=== PATIENT | female | born 1940 | race Caucasian/White ===

== ENCOUNTER 2016-11-23 07:59 | Observation (INO) | payer MEDICARE, OTHER ==
[~2016-11-23] VITALS: Ht 162.6 cm; Wt 65.8 kg
[~2016-11-23 07:59] MED LIST: ACDPT PO; ALPR.25T PO; ASPI-875 PO; CALC-80 PO; CHOL200025 PO; CLCX200C PO; CYCL10TA9 PO; EST45C VG; FLUT16SP22 NSEACH; FOLI0.4T2 PO; HCT25T PO; HYDR-3720 PO; LOSA50TA6 PO; LVT.05T PO; MAGN250T7 PO; MV,C1TAB21 PO; OMEG1CAP51 PO; [UNRECOGNIZED DRUG - OTHER] PO; [UNRECOGNIZED DRUG - REMARK] PO
[2016-11-23 08:30] LABS: BASOPHILS % (AUTO) 1 % (0-10); EOSINOPHILS # (AUTO) 0.2 10^3/uL (0.0-0.3); EOSINOPHILS % (AUTO) 2 % (0-10); LYMPHOCYTES # (AUTO) 3.9 X 10^3 (1.0-4.0); LYMPHOCYTES % (AUTO) 55 % (12-44); MEAN CORPUSCULAR HEMOGLOBIN 32 PG (25-34); MEAN CORPUSCULAR HGB CONC 34 G/DL (32-36); MEAN CORPUSCULAR VOLUME 94 FL (80-99); MEAN PLATELET VOLUME 11.6 FL (7.4-10.4); MONOCYTES # (AUTO) 0.5 X 10^3 (0.0-1.0); MONOCYTES % (AUTO) 7 % (0-12); NEUTROPHILS # (AUTO) 2.5 X 10^3 (1.8-7.8); NEUTROPHILS % (AUTO) 35 % (42-75); PLATELET COUNT 168 10^3/uL (130-400); RED BLOOD COUNT 3.87 10^6/uL (4.35-5.85)
[2016-11-23 08:54] LABS: BILIRUBIN,TOTAL 0.5 MG/DL (0.1-1.0); CALCIUM 9.5 MG/DL (8.5-10.1); CREATININE SERUM 1.16 MG/DL (0.60-1.30); POTASSIUM 4.3 MMOL/L (3.6-5.0); TOTAL PROTEIN 6.9 G/DL (6.4-8.2)
--- NOTE | 2016-11-23 09:08 | ED General ---
General Chief Complaint: Abdominal/GI Problems Stated Complaint: FALL, DIZZINESS, N/V Nursing Triage Note: Pt woke up this morning feeling nauseated with emesis. [place] dizzy. Pt fell 3 days ago and hit the back of her head. Pt did not seek treatment. Awake, alert, and active. Nursing Sepsis Screen: No Definite Risk Source of Information: Patient Exam Limitations: No Limitations History of Present Illness Time Seen by Provider: 09:03 Initial Comments The patient relates that 3 days ago she was in her kitchen and the attempting to take a prescription pill. She had the sensation that this became stuck and was trying to press upon her stomach and and drink water to relieve this she then fell to the floor. She does not remember the act. She apparently hit her head on the floor and was down for a period of time. She then got back up and thought herself to be okay so did not seek medical attention. This morning she awakened early and found herself to be terribly dizzy and having the spinning sensation when she turned her head. She is not previously had symptoms of vertigo. Timing/Duration: 1-3 Hours Associated Systoms: Nausea/Vomiting Allergies and Home Medications Allergies Coded Allergies: Erythromycin Base (Unverified Allergy, Unknown, 08/29/06) Milk Containing Products (Unverified Allergy, Unknown, 04/19/13) FROM UNCODED LIST Home Medications Acetaminophen/Diphenhydramine 1 Ea Tab, 1-2 TAB PO HS PRN, (Reported) NEEDED FOR PAIN/SLEEP Alprazolam 0.25 Mg Tablet, 0.25 MG PO DAILY, (Reported) Aspirin 81 Mg Tablet.dr, 81 MG PO DAILY, (Reported) Calcium Carbonate/Vitamin D3 1 Each Tablet, 1 TAB PO DAILY, (Reported) Celecoxib 200 Mg Capsule, 200 MG PO DAILY, (Reported) Cholecalciferol (Vitamin D3) 2,000 Unit Tablet, 2,000 UNIT PO DAILY, (Reported) Cyclobenzaprine Hcl 10 Mg Tablet, 1 EACH PO Q8HR PRN, #60 (Reported) Estrogens Conjugated 45 Gm Cr, 0.5 GM VG WEEKLY, (Reported) 1/2 APPLICATORFUL ONCE WEEKLY Fluticasone Propionate 16 Gm Naspr, 1 SPRAY NSEACH BID PRN, (Reported) NEEDED FOR ALLERGY SYMPTOMS Folic Acid 0.4 Mg Tablet, 400 MCG PO DAILY, (Reported) Hydrochlorothiazide 25 Mg Tablet, 25 MG PO DAILY, (Reported) Hydrocodone Bit/Acetaminophen 1 Each Tablet, 1-2 EACH PO Q4HR PRN, #60 (Reported ) Levothyroxine Sodium 50 Mcg Tablet, 50 MCG PO DAILY, (Reported) Losartan Potassium 50 Mg Tablet, 50 MG PO DAILY, (Reported) Magnesium Oxide 250 Mg Tablet, 250 MG PO DAILY, (Reported) Mv,Ca,Min/Iron Fum/Fa/Lyco/Lut 1 Each Tablet, 1 TAB PO DAILY, (Reported) [place]-3 Fatty Acids/Fish Oil 1 Each Capsule, 1,000 MG PO DAILY, (Reported) TAKES 1 (1000MG) CAPSULE EVERY MORNING AND TAKES 2 (1000MG) CAPSULES EVERY NIGHT [place]-3 Fatty Acids/Fish Oil 1 Each Capsule, 2,000 MG PO HS, (Reported) TAKES 1 (1000MG) CAPSULE EVERY MORNING AND TAKES 2 (1000MG) CAPSULES EVERY NIGHT [Dairy Digestive Supp] , 2 TAB PO TID PRN, (Reported) EQUATE DAIRY DIGESTIVE SUPPLEMENT TAKES NEEDED BEFORE EATING CHEESE [Sinus & Allergy] , 2 TAB PO BID PRN, (Reported) NEEDED FOR CONGESTION EQUATE SINUS AND ALLERGY Constitutional: see HPI EENTM: other (no loss of hearing but turning head triggers vertigo) Respiratory: no symptoms reported Cardiovascular: no symptoms reported Gastrointestinal: nausea, vomiting Genitourinary: no symptoms reported Musculoskeletal: no symptoms reported Skin: no symptoms reported Psychiatric/Neurological: No Symptoms Reported Hematologic/Lymphatic: No Symptoms Reported Immunological/Allergic: no symptoms reported Past Jirnlyb-Katqye-Xlqsto Hx Patient Social History Alcohol Use: Denies Use Recreational Drug Use: No Smoking Status: Never a Smoker Recent Foreign Travel: No Contact w/Someone Who Travel: No Recent Infectious Disease Expo: No Immunizations Up To Date Tetanus Booster (TDap): More than 5yrs PED Vaccines UTD: Yes Date of Pneumonia Vaccine: Mar 30, 2008 Surgeries HX Surgeries: Yes Respiratory Hx Respiratory Disorders: No Cardiovascular Hx Cardiac Disorders: Yes Neurological Hx Neurological Disorders: No Reproductive System Hx Reproductive Disorders: No Gastrointestinal Hx Gastrointestinal Disorders: Yes (IRRITABLE STOMACH) Musculoskeletal Hx Musculoskeletal Disorders: Yes Musculoskeletal Disorders: Degenerate Disk Disease, Chronic Back Pain Endocrine Hx Endocrine Disorders: Yes Endocrine Disorders: Hypothyroidsim HEENT HX ENT Disorders: No Cancer Hx Cancer: No Psychosocial Hx Psychiatric Problems: Yes Behavioral Health Disorders: Anxiety Integumentary HX Skin/Integumentary Disorder: No Blood Transfusions Hx Blood Disorders: No Adverse Reaction to a Blood Tr: No Physical Exam Vital Signs Vital Sign - Last 12Hours 11/23/16 08:25 Temp 98.2 Pulse 70 Resp 16 B/P (MAP) 149/66 Pulse Ox 98 O2 Delivery Room Air Capillary Refill : Less Than 3 Seconds General Appearance: Mild Distress Eyes: Bilateral Eye Normal Inspection HEENT: Normal ENT Inspection Neck: Full Range of Motion Respiratory: Chest Non Tender, Lungs Clear, Normal Breath Sounds, No Accessory Muscle Use, No Respiratory Distress Cardiovascular: Regular Rate, Rhythm, No Edema, No Gallop, No JVD, No Murmur, Normal Peripheral Pulses Gastrointestinal: Normal Bowel Sounds, No Organomegaly, No Pulsatile Mass, Non Tender, Soft Extremity: Normal Capillary Refill, Normal Inspection, Normal Range of Motion, Non Tender, No Calf Tenderness, No Pedal Edema Neurologic/Psychiatric: Alert, Oriented x3, No Motor/Sensory Deficits, Normal Mood/Affect Skin: Normal Color, Warm/Dry Lymphatic: No Adenopathy Progress/Results/Core Measures Results/Orders Lab Results Laboratory Tests Test 11/23/16 08:20 Range/Units White Blood Count 7.0 4.3-11.0 10^3/uL Red Blood Count 3.87 L 4.35-5.85 10^6/uL Hemoglobin 12.2 11.5-16.0 G/DL Hematocrit 36 35-52 % Mean Corpuscular Volume 94 80-99 FL Mean Corpuscular Hemoglobin 32 25-34 PG Mean Corpuscular Hemoglobin Concent 34 32-36 G/DL Red Cell Distribution Width 13.0 10.0-14.5 % Platelet Count 168 130-400 10^3/uL Mean Platelet Volume 11.6 H 7.4-10.4 FL Neutrophils (%) (Auto) 35 L 42-75 % Lymphocytes (%) (Auto) 55 H 12-44 % Monocytes (%) (Auto) 7 0-12 % Eosinophils (%) (Auto) 2 0-10 % Basophils (%) (Auto) 1 0-10 % Neutrophils # (Auto) 2.5 1.8-7.8 X 10^3 Lymphocytes # (Auto) 3.9 1.0-4.0 X 10^3 Monocytes # (Auto) 0.5 0.0-1.0 X 10^3 Eosinophils # (Auto) 0.2 0.0-0.3 10^3/uL Basophils # (Auto) 0.0 0.0-0.1 10^3/uL Sodium Level 143 135-145 MMOL/L Potassium Level 4.3 3.6-5.0 MMOL/L Chloride Level 107 98-107 MMOL/L Carbon Dioxide Level 24 21-32 MMOL/L Anion Gap 12 5-14 MMOL/L Blood Urea Nitrogen 23 H 7-18 MG/DL Creatinine 1.16 0.60-1.30 MG/DL Estimat Glomerular Filtration Rate 45 BUN/Creatinine Ratio 20 Glucose Level 108 H 70-105 MG/DL Calcium Level 9.5 8.5-10.1 MG/DL Total Bilirubin 0.5 0.1-1.0 MG/DL Aspartate Amino Transf (AST/SGOT) 32 5-34 U/L Alanine Aminotransferase (ALT/SGPT) 17 0-55 U/L Alkaline Phosphatase 48 40-136 U/L Total Protein 6.9 6.4-8.2 G/DL Albumin 4.0 3.2-4.5 G/DL My Orders Orders - RADHA BURNETT MD Cbc With Automated Diff (11/23/16 08:17) Comprehensive Metabolic Panel (11/23/16 08:17) Ua Culture If Indicated (11/23/16 08:17) Ct Head Wo (11/23/16 08:17) Meclizine Tablet (Antivert Tablet) (11/23/16 09:30) Vital Signs/I&O Vital Sign - Last 12Hours 11/23/16 08:25 Temp 98.2 Pulse 70 Resp 16 B/P (MAP) 149/66 Pulse Ox 98 O2 Delivery Room Air Blood Pressure Mean: 93 Departure Communication Progress Notes CT scan is negative for intracranial process. The patient lives alone Impression Impression: Primary Impression: vertigo Disposition: ADMITTED INPATIENT Condition: Stable/Unchanged Decision to Admit Reason: Admit from ER (General) Decision to Admit/Date: November 23, 2016 Time/Decision to Admit Time: 09:57 Departure-Patient Inst. Referrals: YADIEL ARAUJO DO (PCP/Family) Primary Care Physician RADHA BURNETT MD November 23, 2016 09:08
--- NOTE | 2016-11-23 09:25 | Diagnostic Imaging Report ---
PROCEDURE: CT head without contrast. TECHNIQUE: Multiple contiguous axial images were obtained through the brain without the use of intravenous contrast. INDICATION: Fall. Dizziness. No priors. There is no intracranial hemorrhage, hydrocephalus, edema, mass, or mass effect. There is prominence of the bifrontal extra-axial CSF spaces. There is no hydrocephalus. The basilar cisterns patent and sulci non effaced. There is an old remote-appearing lacunar infarct in the right basal ganglia with mild chronic-appearing periventricular white matter small-vessel disease. Orbits, sinuses, and calvarium appeared nonacute. IMPRESSION: Prominent extra-axial CSF spaces likely from cortical atrophy. No hydrocephalus. Remote lacunar infarct and chronic white matter disease. No hemorrhage or acute-appearing abnormality. I agree with the preliminary. Dictated by: Dictated on workstation # [id number]
[2016-11-23] MEDS ORDERED: MECLIZINE 25 MG (ANTIVERT) TAB PO ONE (09:30)
[2016-11-23 10:02] LABS: BILIRUBIN,URINE NEGATIVE (NEGATIVE); KETONES,URINE NEGATIVE (NEGATIVE); LEUKOCYTE ESTERASE ,URINE 1+ (NEGATIVE); NITRITE,URINE NEGATIVE (NEGATIVE); PH,URINE 6 (5-9); PROTEIN,URINE 2+ (NEGATIVE); UROBILINOGEN,URINE NORMAL (NORMAL)
[2016-11-23 10:19] LABS: SQUAMOUS EPITHELIAL CELL,UR 0-2 /HPF; WBC,URINE RARE /HPF
[2016-11-23] MEDS ORDERED: CATHETER FLUSH 10 ML SYR IV PRN (11:00)
[2016-11-23] MEDS: NS IV 1000 ML 1,000 ML IV SCH ×2 (11:07→20:10)
[2016-11-23] MEDS ORDERED: DEXAMETHASONE 4 MG/ML SDV (DECADRON) IV NR (11:45)
--- NOTE | 2016-11-23 11:57 | History & Physical ---
History of Present Illness History of Present Illness Reason for visit/HPI 76-year-old female with a history of spinal stenosis and chronic back pain admitted for observation in regards to vertigo. Patient reports 3 days ago she was standing in her kitchen attempting to take a pill which she thinks was gabapentin and it did not go down completely so she took a couple big drinks of water. After the second drink of water she felt like she needed to hit herself in the chest to get it to go down; became little anxious and that is all she remembers. Shortly thereafter she awoken and wondered where her cup of water was; she was fully alert and knew exactly what was going on and what happened. She did hit her head and noticed a bump on right side of posterior head that subsequently went away. Patient did not seek medical attention as she felt fine. Denies any lasting headache or residual effect from the fall. Patient's sister was around her the following day and reports that Michelle was acting normal. This a.m. the patient woke up with nausea and actually vomited a little bilious fluid. She noticed sitting up or turning her head different directions it would create severe nausea and the feeling of needing to vomit. She has not taken any medications and proceeded to the ER. Patient has not started any new medications. Patient denies any fever or any other signs of illness. Patient lives with her but he is confined to a motorized chair. A CT of her head was performed in the ER that was benign for any acute changes. Given patient lives at home and her is confined to a motorized chair decision was made to admit her for observation. More so patient reports she does not feel stable enough to walk given the dizziness and would not be able to perform as she normally does at home with taking care of her . ER course patient was given IV fluids and meclizine. Patient reports meclizine did not help much. CBC and CMP also collected both which were unremarkable for any electrolyte derangement or etiology for her dizziness. Date of Admission November 23, 2016 at 9:57 am I consulted on this patient on 11/23/16 11:51 Attending Physician Ambika Hernandez DO Admitting Physician Rich Dempsey MD Consult Allergies and Home Medications Allergies Coded Allergies: Milk Containing Products (Unverified Allergy, Unknown, 04/19/13) FROM UNCODED LIST erythromycin base (Unverified Allergy, Unknown, 08/29/06) Home Medications Acetaminophen/Diphenhydramine 1 Ea Tab, 1-2 TAB PO HS PRN, (Reported) NEEDED FOR PAIN/SLEEP Alprazolam 0.25 Mg Tablet, 0.25 MG PO DAILY, (Reported) Aspirin 81 Mg Tablet.dr, 81 MG PO DAILY, (Reported) Calcium Carbonate/Vitamin D3 1 Each Tablet, 1 TAB PO DAILY, (Reported) Celecoxib 200 Mg Capsule, 200 MG PO DAILY, (Reported) Cholecalciferol (Vitamin D3) 2,000 Unit Tablet, 2,000 UNIT PO DAILY, (Reported) Cyclobenzaprine Hcl 10 Mg Tablet, 1 EACH PO Q8HR PRN, #60 (Reported) Estrogens Conjugated 45 Gm Cr, 0.5 GM VG WEEKLY, (Reported) 1/2 APPLICATORFUL ONCE WEEKLY Fluticasone Propionate 16 Gm Naspr, 1 SPRAY NSEACH BID PRN, (Reported) NEEDED FOR ALLERGY SYMPTOMS Folic Acid 0.4 Mg Tablet, 400 MCG PO DAILY, (Reported) Hydrochlorothiazide 25 Mg Tablet, 25 MG PO DAILY, (Reported) Hydrocodone Bit/Acetaminophen 1 Each Tablet, 1-2 EACH PO Q4HR PRN, #60 (Reported ) Levothyroxine Sodium 50 Mcg Tablet, 50 MCG PO DAILY, (Reported) Losartan Potassium 50 Mg Tablet, 50 MG PO DAILY, (Reported) Magnesium Oxide 250 Mg Tablet, 250 MG PO DAILY, (Reported) Mv,Ca,Min/Iron Fum/Fa/Lyco/Lut 1 Each Tablet, 1 TAB PO DAILY, (Reported) [place]-3 Fatty Acids/Fish Oil 1 Each Capsule, 1,000 MG PO DAILY, (Reported) TAKES 1 (1000MG) CAPSULE EVERY MORNING AND TAKES 2 (1000MG) CAPSULES EVERY NIGHT [place]-3 Fatty Acids/Fish Oil 1 Each Capsule, 2,000 MG PO HS, (Reported) TAKES 1 (1000MG) CAPSULE EVERY MORNING AND TAKES 2 (1000MG) CAPSULES EVERY NIGHT [Dairy Digestive Supp] , 2 TAB PO TID PRN, (Reported) EQUATE DAIRY DIGESTIVE SUPPLEMENT TAKES NEEDED BEFORE EATING CHEESE [Sinus & Allergy] , 2 TAB PO BID PRN, (Reported) NEEDED FOR CONGESTION EQUATE SINUS AND ALLERGY Past Iyafnxq-Dayzcz-Oezikv Hx Patient Social History Alcohol Use: Denies Use Recreational Drug Use: No Smoking Status: Never a Smoker Recent Foreign Travel: No Contact w/other who traveled: No Recent Infectious Disease Expo: No Immunizations Up To Date Tetanus Booster (TDap): More than 5yrs Date of Pneumonia Vaccine: Mar 30, 2008 Surgeries HX Surgeries: Yes Respiratory Hx Respiratory Disorders: No Cardiovascular Hx Cardiovascular Disorders: Yes Neurological Hx Neurological Disorders: No Reproductive System Hx Reproductive Disorders: No Gastrointestinal Hx Gastrointestinal Disorders: Yes (IRRITABLE STOMACH) Musculoskeletal Hx Musculoskeletal Disorders: Yes Musculoskeletal Disorders: Degenerate Disk Disease, Chronic Back Pain Endocrine Hx Endocrine Disorders: Yes Endocrine Disorders: Hypothyroidsim HEENT HX ENT Disorders: No Cancer Hx Cancer: No Psychosocial Hx Psychiatric Problems: Yes Behavioral Health Disorders: Anxiety Integumentary HX Skin/Integumentary Disorder: No Blood Transfusions Hx Blood Disorders: No Adverse Reaction to a Blood Tr: No Review of Systems Review of Systems General: No Chills, No Night Sweats, No Fatigue, No Malaise HEENT: No Head Aches, Visual Changes (vertigo) Pulmonary: No Dyspnea, No Cough Cardiovascular: No: Chest Pain, Orthopnea Gastrointestinal: Nausea, Vomiting, No: Abdominal Pain Genitourinary: No Dysuria, No Frequency Musculoskeletal: back pain, No: neck pain, shoulder pain Neurological: No: Confusion, Numbness, Weakness Physical Exam Vital Signs Vital Sign - Last 12Hours 11/23/16 08:25 Temp 98.2 Pulse 70 Resp 16 B/P (MAP) 149/66 Pulse Ox 98 O2 Delivery Room Air Capillary Refill : Less Than 3 Seconds General Appearance: WD/WN, Anxious, Mild Distress Eyes: Bilateral Eye EOMI, Bilateral Eye PERRL HEENT: PERRL/EOMI Neck: Full Range of Motion, Non Tender, Supple Respiratory: Chest Non Tender, Lungs Clear, Normal Breath Sounds, No Accessory Muscle Use, No Respiratory Distress Cardiovascular: Regular Rate, Rhythm, Systolic Murmur (grade ii/vi), Other (2+ dorsalis pedis pulse) Gastrointestinal: No Pulsatile Mass, Non Tender, Soft Rectal: Deferred Back: No CVA Tenderness Extremity: Normal Capillary Refill, Normal Inspection, Normal Range of Motion, Non Tender, No Calf Tenderness Neurologic/Psychiatric: Alert, Oriented x3, Normal Mood/Affect, Sensory Deficit (decreased in left lower extremity) Skin: Normal Color, Warm/Dry Assessment/Plan Assessment/Plan Assessment/Plan 76 yo F *vertigo- likely BPPV- unable to do the yesica-hallpike diagnostic maneuver effectively due to pt being dizzy sitting up and not wanting to turn her head -continue meclizine, giving 1x dose of 4mg dexamethasone IV to see if it helps- if BPPV medication won't help much. --may also be labrinthitis from a viral etiology -will monitor overnight and plan to try yesica-hallpike again- in hopes of helping her vertigo with epply maneuver *chronic back pain with spinal stenosis- may take her home medications gabapentin, tramadol *constipation due to opioid use- may add colace, miralax hypothyroidism- will review home med anxiety- alprazolam 0.25mg from home. DVT ppx: scds Dispo: monitor overnight- reassess in AM as above. Problems: RICH DEMPSEY MD November 23, 2016 11:57 am
[2016-11-23] MEDS: MECLIZINE 25 MG (ANTIVERT) TAB PO SCH ×3 (13:22→20:08)
[2016-11-23] MEDS ORDERED: AMLO5TAB2 PO (15:33)
[2016-11-23] MEDS ORDERED: TRAM50TA2 PO (15:33)
[2016-11-23] MEDS ORDERED: NFBIOT1000 PO (15:33)
[2016-11-23] MEDS ORDERED: GABA600T2 PO (15:33)
[2016-11-23] MEDS ORDERED: PATIENT MAY USE OWN MEDS, ALL MC SCH (15:45)
[2016-11-23] MEDS ORDERED: GABAPENTIN 600 MG (NEURONTIN) TAB PO SCH (15:45)
[2016-11-23 15:59] VITALS: BP 147/70
[2016-11-23] MEDS: GABAPENTIN 600 MG (NEURONTIN) TAB PO SCH ×2 (16:48→23:05)
[2016-11-23] MEDS ORDERED: ONDANSETRON 4 MG (ZOFRAN) ORAL DISSOLVE TAB PO PRN (19:45)
[2016-11-23 19:46] VITALS: BP 132/71
[2016-11-24] VITALS: BP 127/69
[2016-11-24] MEDS: MECLIZINE 25 MG (ANTIVERT) TAB PO SCH ×3 (00:59→09:35)
[2016-11-24 04:06] VITALS: BP 131/64
[2016-11-24] MEDS: GABAPENTIN 600 MG (NEURONTIN) TAB PO SCH ×2 (04:43→09:36)
[2016-11-24] MEDS: NS IV 1000 ML 1,000 ML IV SCH (06:12)
[2016-11-24 08:00] VITALS: BP 146/65
[2016-11-24] MEDS ORDERED: ASPIRIN E.C. 81 MG (ECOTRIN) TAB PO SCH (09:00)
[2016-11-24] MEDS ORDERED: ALPRAZolam 0.25 MG (XANAX) TAB PO SCH (09:00)
--- NOTE | 2016-11-24 09:36 | Discharge Summary ---
Diagnosis/Chief Complaint Date of Admission November 23, 2016 at 09:57 Date of Discharge November 24, 2016 Discharge Date: November 24, 2016 Admission Diagnosis Admission Diagnosis *vertigo- *chronic back pain with spinal stenosis- *constipation due to opioid use hypothyroidism- anxiety- Discharge Diagnosis *vertigo- resolved *chronic back pain with spinal stenosis- *constipation due to opioid use hypothyroidism- anxiety- Reason Hospital Visit 76-year-old female with a history of spinal stenosis and chronic back pain admitted for observation in regards to vertigo. Patient reports 3 days ago she was standing in her kitchen attempting to take a pill which she thinks was gabapentin and it did not go down completely so she took a couple big drinks of water. After the second drink of water she felt like she needed to hit herself in the chest to get it to go down; became little anxious and that is all she remembers. Shortly thereafter she awoken and wondered where her cup of water was; she was fully alert and knew exactly what was going on and what happened. She did hit her head and noticed a bump on right side of posterior head that subsequently went away. Patient did not seek medical attention as she felt fine. Denies any lasting headache or residual effect from the fall. Patient's sister was around her the following day and reports that Michelle was acting normal. This a.m. the patient woke up with nausea and actually vomited a little bilious fluid. She noticed sitting up or turning her head different directions it would create severe nausea and the feeling of needing to vomit. She has not taken any medications and proceeded to the ER. Patient has not started any new medications. Patient denies any fever or any other signs of illness. Patient lives with her but he is confined to a motorized chair. A CT of her head was performed in the ER that was benign for any acute changes. Given patient lives at home and her is confined to a motorized chair decision was made to admit her for observation. More so patient reports she does not feel stable enough to walk given the dizziness and would not be able to perform as she normally does at home with taking care of her . ER course patient was given IV fluids and meclizine. Patient reports meclizine did not help much. CBC and CMP also collected both which were unremarkable for any electrolyte derangement or etiology for her dizziness. Discharge Summary Hospital Course Hospital Course 76-year-old female admitted for vertigo specifically room spinning sensation onset of same day as admission. After admission attempt was made to do Jaxon- Hallpike maneuver patient was not very tolerant of this and results were equivocal. A trial dose of dexamethasone 4 mg IV was given as well as patient was continued on meclizine. Following morning patient reported marked improvement in her vertigo and felt ready to go home. patient is deemed stable for discharge on 11/24/16. Patient will have meclizine to take when necessary for any residual vertigo. Patient will also continue dexamethasone 4 mg by mouth for 2 days. Suspect it is BPPV versus labyrinthitis. Both of which usually resolve on their own. She will follow-up with Dr. Hernandez in 1 week. Labs Laboratory Tests 11/23/16 08:20: Red Blood Count 3.87L, Mean Platelet Volume 11.6H, Neutrophils (%) (Auto) 35L, Lymphocytes (%) (Auto) 55H, Blood Urea Nitrogen 23H, Glucose Level 108H 11/23/16 09:30: Urine Specific [place] 1.010L, Urine Protein 2+H, Urine Leukocyte Esterase 1+H Procedures None. Discharge Physical Examination Allergies: Coded Allergies: Milk Containing Products (Unverified Allergy, Unknown, 04/19/13) FROM UNCODED LIST erythromycin base (Unverified Allergy, Unknown, 08/29/06) Vitals & I&Os Vital Signs Date Time Temp Pulse Resp B/P (MAP) Pulse Ox O2 Delivery O2 Flow Rate FiO2 11/24/16 11:25 62 20 146/65 98 11/24/16 08:00 97.3 11/23/16 08:25 Room Air General Appearance: Alert, Oriented X3, Cooperative HEENT: Atraumatic, PERRLA (no nystagmus) Respiratory: Clear to Auscultation Cardiovascular: Regular Rate Abdominal: Normal Bowel Sounds, Soft Extremities: No Clubbing, No Cyanosis Skin: No Rashes Neuro: Normal Speech, Strength at 5/5 X4 Ext Psych/Mental Status: Mental Status NL Discharge Home Medications Reviewed and agree with Discharge Medication list on patient's Discharge Instruction sheet Condition at Discharge stable Instructions to Patient/Family Please see electronic discharge instructions given to patient. Clinical Quality Measures DVT/VTE Risk/Contraindication: Risk Factor Score Per Nursin RFS Level Per Nursing on Admit: 2=Moderate DANIEL CHESTER MD November 24, 2016 9:36 am
[2016-11-24] MEDS ORDERED: DEXA4TAB PO (09:43)
[2016-11-24] MEDS ORDERED: MECL-106 PO (09:43)
--- NOTE | 2016-11-24 09:45 | Discharge Inst-Simple/Standard ---
Discharge Inst-Standard Discharge Medications New, Converted or Re-Newed RX: Transmitted to Pharmacy Patient Instructions/Follow Up Plan of Care/Instructions/FU: patient will have meclizine for her vertigo. also sending in dexamethasone which seemed to help the day she was inpatient Follow up with Dr. Hernandez in 1 week Stay hydrated with water. Activity as Tolerated: Yes Discharge Diet: Regular Diet DANIEL CHESTER MD November 24, 2016 09:45
[2016-11-24 11:25] VITALS: BP 146/65
== END 2016-11-24 09:44 | disposition home or self-care (01) ==
LOC: EDUNIT# 07:59 → ER 08:01 → UNDOADMOB 09:57 → 4TH 09:57 → UNDODISOB 11-24 11:25
PROVIDERS: ADMIT Family Medicine; ATTEND Family Medicine
DX: R42 Dizziness and giddiness (principal); E03.9 Hypothyroidism, unspecified; F41.9 Anxiety disorder, unspecified; K59.03 Drug induced constipation; T40.2X5A Adverse effect of other opioids, initial encounter; M54.9 Dorsalgia, unspecified; M48.00 Spinal stenosis, site unspecified
CPT/HCPCS: 36415; 70450; 80053; 81000; 85025; G0378

== ENCOUNTER → 2017-01-14 | Outpatient (CLI) | payer MEDICARE, OTHER ==
[~2017-01-14] MED LIST changes: +AMLO5TAB2 PO; +DEXA4TAB PO; +GABA600T2 PO; +MECL-106 PO; +NFBIOT1000 PO; +TRAM50TA2 PO
--- NOTE | 2017-01-14 13:39 | Diagnostic Imaging Report ---
CLINICAL INDICATION: Patient with memory loss. Comparison: Carotid duplex ultrasound exam dated 09/05/2014. Exam: Real-time carotid Doppler duplex imaging is performed bilaterally. Peak systolic velocity, ICA/CCA peak systolic ratio, spectral analysis, and vascular morphology are studied. Findings: ARTERY VELOCITY Right Left CCA 0.52 m/s 0.78 m/s ICA 0.64 m/s 0.86 m/s ECA 0.59 m/s 0.66 m/s ICA/CCA 1.23 1.09 VERT.ART Antegrade Antegrade There is minimal bilateral carotid artery atherosclerotic disease which demonstrates less than 50% stenosis on grayscale imaging. Impression: Minimal bilateral carotid artery atherosclerotic disease with no grayscale or Doppler evidence of significant vascular stenosis. Dictated by: Dictated on workstation # [id number]
--- NOTE | 2017-01-15 19:39 | Diagnostic Imaging Report ---
Bilateral screening mammogram 2D views with tomosynthesis. The current study was also evaluated with a Computer Aided Detection (CAD) system. INDICATION: Screening. No current complaints stated on the questionnaire. COMPARISON: 10/19/15. FINDINGS: The breasts are composed of scattered fibroglandular densities. There are scattered benign-appearing calcifications. Allowing for technique and positional differences, no suspicious change is seen. IMPRESSION: No significant change. ACR BI-RADS Category 2: Benign findings. Result letter will be mailed to the patient. Note: At least 10% of breast cancer is not imaged by mammography. Dictated by: Dictated on workstation # [id number]
== END ==
LOC: RAD 12:52
PROVIDERS: ATTEND Family Medicine
DX: I65.23 Occlusion and stenosis of bilateral carotid arteries (principal); Z12.31 Encounter for screening mammogram for malignant neoplasm of breast
CPT/HCPCS: 77067; 93880

== ENCOUNTER → 2017-04-22 | Outpatient (CLI) | payer MEDICARE, OTHER ==
--- NOTE | 2017-04-22 10:45 | Diagnostic Imaging Report ---
PROCEDURE: MRI lumbar spine. TECHNIQUE: Multiplanar, multisequence MRI of the lumbar spine was performed without contrast. INDICATION: Low back pain. COMPARISON: 01/03/2016. FINDINGS: There is straightening of the lumbar lordotic curvature. The alignment of the posterior spinal line however is satisfactory. There is susceptibility artifacts from bilateral transpedicular fusion hardware involving L3 and L4 levels. There is also disc cage identified. No obvious MRI evidence of vertebral body bone fusion at this level. There is significant disc height loss at L4/5 and mild disc height loss at L5/S1. Disc desiccation at all levels seen. There is reactive marrow changes around endplates of L4/5 and L5/S1. No suspicious marrow signal abnormality seen. The cauda equina and conus medullaris appear grossly unremarkable. T12/L1: No disc herniation, no facet hypertrophy. No foraminal stenosis. L1/2: There is a mild disc bulge and there is mild facet hypertrophy. No central canal, lateral recess or foraminal stenosis. L2/L3: There is a diffuse disc bulge and posterior ligamentous hypertrophy. There is mild to moderate central canal stenosis reducing the AP dimension of the canal to 8.8 mm and bilateral mild lateral recess stenosis worse on the right side is seen. No foraminal stenosis. L3/4: There is postoperative fusion changes seen with no evidence of remaining disc material posteriorly or fibrotic changes of significance. No central canal or lateral recess stenosis. The foramina demonstrate no stenosis on the left and probable mild stenosis on the right side although assessment is difficult due to the adjacent beam hardening artifacts. L4/5: There is a diffuse disc bulge and mild facet hypertrophy. No central canal or lateral recess stenosis. There is foraminal narrowing of moderate degree bilaterally suggested. L5/S1: There is a diffuse disc bulge asymmetric to the left side and moderate to severe facet arthropathy. There is no central canal stenosis. There is moderate stenosis of the left lateral recess. No stenosis of the right lateral recess. The foramina demonstrate severe stenosis on the left side encroaching upon the exiting left L5 spinal nerve. There is only mild foramina stenosis of the right. On the left side, extraforaminal disc herniation component is also abutting the exiting left L5 spinal nerve. The soft tissues demonstrates fullness in the lateral aspect of the left kidney. IMPRESSION: 1. There is severe foraminal stenosis on the left side at L5/S1 level encroaching upon the exiting left L5 spinal nerve. Also, the disc herniation in an extraforaminal location also abuts this nerve after exiting from the foramen. 2. Indeterminate fullness in the lateral aspect of the left kidney is seen. Further evaluation with renal ultrasound is recommended to rule out a left renal mass. The incidental findings of the left the renal parenchymal fullness and ultrasound evaluation recommendation is called to Dr. Porter Casas by Dr. Aguilar at time 11 am. Dictated by: Dictated on workstation # [id number]
== END ==
LOC: RAD 09:16
PROVIDERS: ATTEND Pain Medicine Interventional Pain Medicine
DX: M48.061 Spinal stenosis, lumbar region without neurogenic claudication (principal); M51.16 Intervertebral disc disorders with radiculopathy, lumbar region; N28.89 Other specified disorders of kidney and ureter
CPT/HCPCS: 72148

== ENCOUNTER → 2017-10-16 | Outpatient (CLI) | payer MEDICARE, OTHER ==
[~2017-10-16] VITALS: Ht 162.6 cm; Wt 65.8 kg
[~2017-10-16] MED LIST changes: +methylPREDNISolone 80 MG/ML (DEPO MEDROL) VIAL ONE
[2017-10-16 15:09] VITALS: BP 136/7
[2017-10-16 15:29] VITALS: BP 169/80
--- NOTE | 2017-10-16 23:54 | OPERATIVE REPORT ---
DATE OF SERVICE: 10/16/2017 DIAGNOSIS: Lumbar radiculopathy. PROCEDURE: Fluoroscopic guided interlaminar epidural steroid injection. PROCEDURE IN DETAIL: After obtaining informed consent from the patient, the patient's chart was reviewed. The patient was then brought to the procedure room and placed in the prone position. A timeout was performed. The back was prepped with antiseptic solution and under fluoro guidance, the patient's lumbar spine was identified at the level of L4-L5. The L4-L5 vertebra was identified with fluoro guidance and approximately 2 mL of 1.5% lidocaine solution was used to anesthetize the skin directly down to the pedicle of the L4-L5 and under fluoroscopic guidance, the tract was anesthetized up to the interlaminar space and the ligamentum flavum. This needle was withdrawn. Then, a 20-gauge 3.5 inch Tuohy needle was then directed following the same tract that was anesthetized with the spinal needle. Using loss of resistance, the epidural space was identified and then the syringe was switched for contrast solution which was injected, approximately 1 mL. After secondary confirmation of epidural access, another syringe was placed and 80 mg of Depo-Medrol was injected. The Tuohy needle was then flushed out with approximately 2 mL of the normal saline used from the loss of resistance syringe. Band-Aids were applied to all the procedure sites. The patient tolerated the procedure well and was taken to the recovery room in stable condition. COMPLICATIONS: None. Job ID: [id number] DocumentID: [id number] Dictated Date: 10/16/2017 15:28:58 Shoemaking Finisher Date: 10/16/2017 23:53:05 Dictated By: ROGER YEN DO
== END ==
LOC: CARD 14:00
PROVIDERS: ATTEND Pain Medicine Interventional Pain Medicine
DX: M54.16 Radiculopathy, lumbar region (principal); Z88.0 Allergy status to penicillin; Z79.899 Other long term (current) drug therapy
CPT/HCPCS: 62323

== ENCOUNTER → 2018-01-07 | Outpatient (CLI) | payer MEDICARE, OTHER ==
[~2018-01-07] MED LIST changes: -methylPREDNISolone 80 MG/ML (DEPO MEDROL) VIAL ONE
--- NOTE | 2018-01-07 14:52 | Diagnostic Imaging Report ---
INDICATION: Dyspnea. TECHNIQUE: Two view chest 2:44 PM CORRELATION STUDY: None FINDINGS: The heart size, mediastinal configuration and pulmonary vasculature are within normal limits. The lungs are hyperlucent and somewhat hyperinflated. However, lung mandujano are clear with no consolidating infiltrate. There is no significant pleural effusion or pneumothorax. Mild rightward curvature of the lumbar spine. IMPRESSION: 1. No radiographic evidence for acute abnormality of the chest. Dictated by: Dictated on workstation # [id number]
== END ==
LOC: RAD 14:01
PROVIDERS: ATTEND Family Medicine
DX: R06.00 Dyspnea, unspecified (principal)
CPT/HCPCS: 71046

== ENCOUNTER 2018-01-08 12:19 | Outpatient (CLI) | payer MEDICARE, OTHER ==
[~2018-01-08] VITALS: Ht 165.1 cm; Wt 63.5 kg
[2018-01-08 12:29] VITALS: BP 169/73
[2018-01-08] MEDS ORDERED: methylPREDNISolone 80 MG/ML (DEPO MEDROL) VIAL ONE (12:36)
[2018-01-08 13:12] VITALS: BP 177/85
--- NOTE | 2018-01-08 20:57 | OPERATIVE REPORT ---
DATE OF SERVICE: 01/08/2018 DIAGNOSIS: Lumbar radiculopathy. PROCEDURE: Fluoroscopic guided interlaminar epidural steroid injection. PROCEDURE IN DETAIL: After obtaining informed consent from the patient, the patient's chart was reviewed. The patient was then brought to the procedure room and placed in the prone position. A timeout was performed. The back was prepped with antiseptic solution and under fluoro guidance, the patient's lumbar spine was identified at the level of L4-L5. The L4-L5 vertebra was identified with fluoro guidance and approximately 2 mL of 1.5% lidocaine solution was used to anesthetize the skin directly down to the pedicle of the L4-L5 and under fluoroscopic guidance, the tract was anesthetized up to the interlaminar space and the ligamentum flavum. This needle was withdrawn. Then, a 20-gauge 3.5 inch Tuohy needle was then directed following the same tract that was anesthetized with the spinal needle. Using loss of resistance, the epidural space was identified and then the syringe was switched for contrast solution which was injected, approximately 1 mL. After secondary confirmation of epidural access, another syringe was placed and 80 mg of Depo-Medrol was injected. The Tuohy needle was then flushed out with approximately 2 mL of the normal saline used from the loss of resistance syringe. Band-Aids were applied to all the procedure sites. The patient tolerated the procedure well and was taken to the recovery room in stable condition. COMPLICATIONS: None. Job ID: [id number] DocumentID: [id number] Dictated Date: 01/08/2018 13:12:43 Director Transition Date: 01/08/2018 20:56:58 Dictated By: ROGER YEN DO
== END 2018-01-08 14:30 ==
LOC: CARD 12:19
PROVIDERS: ATTEND Pain Medicine Interventional Pain Medicine
DX: M54.16 Radiculopathy, lumbar region (principal)
CPT/HCPCS: 62323

== ENCOUNTER → 2018-02-06 | Outpatient (CLI) | payer MEDICARE, OTHER | LOC: CARD 11:51 | PROVIDERS: ATTEND Family Medicine | DX: R06.00 Dyspnea, unspecified (principal); R01.1 Cardiac murmur, unspecified; R53.83 Other fatigue; I42.2 Other hypertrophic cardiomyopathy | CPT/HCPCS: 93306; 94060; 94726; 94729 ==

== ENCOUNTER → 2018-02-16 | Outpatient (CLI) | payer MEDICARE, OTHER ==
--- NOTE | 2018-02-16 14:04 | Diagnostic Imaging Report ---
CLINICAL INDICATION: Patient with chronic spine problems with recent bilateral leg pain. Patient has history of 2 previous lumbar spine surgeries. EXAM: MRI of the thoracic spine performed without IV contrast. Sequences include sagittal T2, sagittal T1, sagittal T2 fat-sat, and axial T2. COMPARISON: None. FINDINGS: There is a subtle amount of high T2 signal within the T3 vertebral body with no loss of vertebral body height or MRI evidence of fracture. There is a small amount of Modic type I/type II degenerative signal changes involving the T11-T12 vertebra. There is mild to moderate degenerative disease of the thoracic spine. There is a T11-T12 mild diffuse disc bulge. There is minimal impression upon the thecal sac anteriorly. Remainder of the thoracic spine shows no significant posterior disc bulge. There is mild bilateral facet arthropathy. There is moderate right T9-T10 neuroforaminal narrowing. Remainder of the thoracic spine shows no significant neuroforaminal narrowing. The thoracic spinal cord has normal cord caliber with no abnormal signal. There is no significant paraspinal soft tissue abnormality. IMPRESSION: 1: There is nonspecific subtle amorphous increased T2 signal within the T3 vertebral body with no loss of vertebral body height. This may be related to degenerative changes, but followup MRI of the thoracic spine with and without IV contrast in 3 months is suggested to evaluate for stability or interval change. This will help exclude an underlying infiltrative process. 2: Mild to moderate thoracic spine degenerative disease with no significant central canal narrowing. There is moderate right T9-T10 neuroforaminal narrowing from facet arthropathy. Dictated by: Dictated on workstation # [id number]
--- NOTE | 2018-02-16 14:55 | Diagnostic Imaging Report ---
PROCEDURE: MRI lumbar spine. TECHNIQUE: Multiplanar, multisequence MRI of the lumbar spine was performed without contrast. INDICATION: Radiculopathy. COMPARISON: Comparison is made with prior MRI of the lumbar spine from 01/03/2016. FINDINGS: Left convexity scoliotic curvature is seen. There are postop changes of posterior instrumented fusion at the L3-4 level. Hardware does produce moderate artifact. Vertebral body heights are maintained. No acute compression fracture is seen. No geographic marrow lesion is identified. Significant degenerative disc disease at the L3-4, L4-5 and L5-S1 levels is noted, with disc space narrowing and desiccation as well as marginal osteophyte formation. This is similar to prior MR from 2016. The conus appears unremarkable at the L1 level. T12-L1: No central canal or neural foraminal stenosis is identified. L1-2: Unremarkable. L2-3: Broad-based disc/osteophyte complex and facet changes are noted. There is narrowing of the central canal to approximately 7 mm, similar to prior exam. Mild left neural foraminal narrowing is also seen. The right neural foramen is patent. L3-4: The central canal is widely patent. No significant neural foraminal stenosis is seen. L4-5: Central canal is widely patent. There appears to be moderate bilateral neural foramina narrowing, similar to prior study. L5-S1: Central canal is widely patent. Moderate left neural foraminal stenosis due to broad-based disc/osteophyte complex is similar to prior exam. Paraspinous tissues are unremarkable. IMPRESSION: Lumbar spondylosis and postop changes of posterior instrumented fusion at L3-4. There is multilevel neural foraminal and central canal narrowing described level by level above. Overall appearance is very similar to prior MRI from 01/03/2016. Dictated by: Dictated on workstation # [id number]
== END ==
LOC: RAD 12:53
PROVIDERS: ATTEND Pain Medicine Interventional Pain Medicine
DX: M48.04 Spinal stenosis, thoracic region (principal); M47.814 Spondylosis without myelopathy or radiculopathy, thoracic region; M54.16 Radiculopathy, lumbar region
CPT/HCPCS: 72146; 72148

== ENCOUNTER → 2018-03-09 | Outpatient (CLI) | payer MEDICARE, OTHER ==
[~2018-03-09] VITALS: Ht 165.1 cm; Wt 64.4 kg
[~2018-03-09] MED LIST changes: -AMLO5TAB2 PO; +AMLO5TAB7 PO; +CATHETER FLUSH 10 ML SYR IV PRN; +REGADENOSON 0.4 MG/5 ML SYR (LEXISCAN) IV ONE
[2018-03-09 09:16] VITALS: BP 177/72
--- NOTE | 2018-03-09 22:45 | STRESS TEST ---
DATE OF SERVICE: 03/09/2018 LEXISCAN MYOVIEW STRESS TEST REPORT REFERRING PHYSICIAN: Ambika Hernandez DO Baseline heart rate is 53, baseline blood pressure 190/79, baseline EKG is sinus rhythm with no ischemic changes. In summary, the patient was initially scheduled for exercise stress test, was unable to exercise beyond 4 minutes on standard Bhupinder protocol, did not achieve her target heart rate. Test was terminated and converted to Lexiscan Myoview stress test. The patient received 0.4 mg of Lexiscan followed by 29.8 mCi of technetium-99 Myoview. Throughout the test, the patient was hypertensive, no EKG changes. The resting and stress images were reviewed and compared in the short axis, horizontal long axis and vertical long axis views. Review of the images showed typical female pattern with good radiotracer uptake, no significant ischemia or infarction. SSS is 0. TID value 1.01. On the gated images, the left ventricle appeared to be normal size with normal contractility. Calculated ejection fraction 75%. CONCLUSION: 1. The patient was unable to exercise beyond 4 minutes on Bhupinder protocol, did not achieve her target heart rate. Test was converted to Lexiscan Myoview stress test. 2. The patient tolerated Lexiscan well. 3. No ischemia or infarction on SPECT images. 4. Normal left ventricular size with normal contractility. Calculated ejection fraction 75%. Job ID: [id number] DocumentID: [id number] Dictated Date: 03/09/2018 18:15:02 Graphics Manager Date: 03/09/2018 22:45:02 Dictated By: DIANE DELA CRUZ MD
== END ==
LOC: CARD 07:13
PROVIDERS: ATTEND Internal Medicine Cardiovascular Disease
DX: R06.02 Shortness of breath (principal); I11.9 Hypertensive heart disease without heart failure; R93.1 Abnormal findings on diagnostic imaging of heart and coronary circulation; M96.1 Postlaminectomy syndrome, not elsewhere classified
CPT/HCPCS: 78452; 93017

== ENCOUNTER 2018-04-21 18:40 | Emergency (ER) | payer MEDICARE, OTHER ==
[~2018-04-21] VITALS: Ht 165.1 cm; Wt 63.5 kg
[~2018-04-21 18:40] MED LIST changes: -CATHETER FLUSH 10 ML SYR IV PRN; -REGADENOSON 0.4 MG/5 ML SYR (LEXISCAN) IV ONE
--- OUTSIDE RECORDS SUMMARY | 2018-04-21 18:45 | XMS REPORT ---
Author Author ESTRELLA CELAYA Organization [facility] Address Unknown Care Team Providers Care Machine Preservative Filler Name Role Phone ESTRELLA CELAYA Unavailable PROBLEMS Unknown Problems ALLERGIES Substance Reaction Event Type Date Status arythomyicine Unknown Non Drug Allergy Dec, Active ENCOUNTERS Encounter Location Date Diagnosis [facility] [address] [id number] [place] [id number] Dec, [facility] [address] [id number] [id number] Dec, Dental examination Z01.20 IMMUNIZATIONS No Known Immunizations SOCIAL HISTORY Never Assessed REASON FOR VISIT MEÑO PLAN OF CARE Activity Details Follow Up prn Reason:as needed VITAL SIGNS Blood pressure systolic 167 mmHg 2018-01-15 Blood pressure diastolic 62 mmHg 2018-01-15 MEDICATIONS Medication Instructions Dosage Frequency Start Date End Date Duration Status Gabapentin Active Senna Active Tramadol HCl Active Amlodipine Besylate Active Alprazolam Active Fluticasone Propionate Active RESULTS No Results PROCEDURES Procedure Date Ordered Result Body Site LTD ORAL EVALUATION - PROBLEM FOCUS January 15, 2018 INTRAORL-PERIAPICAL 1 FILM [id number] January 15, 2018 BITEWING - SINGLE FILM January 15, 2018 INSTRUCTIONS MEDICATIONS ADMINISTERED No Known Medications MEDICAL (GENERAL) HISTORY Type Description Date Medical History high blood pressure Surgical History tonsils 1956 Surgical History hysterectomy 1977 Surgical History sling for rock combo a&t 3 1996 Surgical History decompressed laminectomy 04/19/13 Surgical History lumbar fusion 03/31/14
--- OUTSIDE RECORDS SUMMARY | 2018-04-21 18:45 | XMS REPORT ---
Author Author ESTRELLA CELAYA [facility] Address Unknown Care Team Providers Care Messenger Copy Name Role Phone PHILLYJACOBO ESTRELLA Unavailable PROBLEMS Unknown Problems ALLERGIES No Information ENCOUNTERS Encounter Location Date Diagnosis [facility] [address] [id number] [id number] Dec, [facility] [id number] [id number] Dec, Dental examination Z01.20 IMMUNIZATIONS No Known Immunizations SOCIAL HISTORY Never Assessed REASON FOR VISIT xrays PLAN OF CARE VITAL SIGNS MEDICATIONS Unknown Medications RESULTS No Results PROCEDURES No Known procedures INSTRUCTIONS MEDICATIONS ADMINISTERED No Known Medications MEDICAL (GENERAL) HISTORY Type Description Date Medical History high blood pressure Surgical History tonsils 1956 Surgical History hysterectomy 1977 Surgical History sling for rock combo a&t 3 1996 Surgical History decompressed laminectomy 04/19/13 Surgical History lumbar fusion 03/31/14
--- OUTSIDE RECORDS SUMMARY | 2018-04-21 18:46 | XMS REPORT | Continuity of Care Document ---
Author Author [facility] Organization [facility] Address Unknown Phone Unavailable Allergies Active Description Code Type Severity Reaction Onset Reported/Identified Relationship to Patient Clinical Status Yes erythromycin base [id number] Drug Allergy Unknown N/A 08/29/2006 Yes Milk Containing Products [id number] Drug Allergy Unknown N/A 04/19/2013 Medications There is no data. Problems Date Dx Coded Attending Type Code Diagnosis Diagnosed By 04/20/2013 WALLY PATEL MD Ot 300.00 ANXIETY STATE NOS 04/20/2013 WALLY PATEL MD Ot 401.9 HYPERTENSION NOS 04/20/2013 WALLY PATEL MD Ot 724.02 SPINAL STENOSIS, LUMBAR REG, W/OUT NEURO 04/20/2013 WALLY PATEL MD Ot V57.1 PHYSICAL THERAPY NEC 04/20/2013 WALLY PATEL MD Ot V57.21 ENCOUNTER FOR OCCUPATIONAL THERAPY 01/07/2014 NICHO PENNINGTON MD Ot 722.52 LUMB/LUMBOSAC DISC DEGEN 01/07/2014 NICHO PENNINGTON MD Ot 722.83 POSTLAMINECT SYND-LUMBAR 01/07/2014 NICHO PENNINGTON MD Ot V58.69 OTH MED,LT,CURRENT USE 05/25/2014 ALBIN JAMES Ot 724.02 05/25/2014 ALBIN JAMES Ot 724.4 07/06/2014 DANIEL SOMMERS MD Ot 724.02 07/06/2014 DANIEL SOMMERS MD Ot 724.4 07/25/2014 DANIEL SOMMERS MD Ot 724.02 07/25/2014 DANIEL SOMMERS MD Ot V45.4 07/30/2014 ALBIN JAMES Ot 724.02 07/30/2014 ALBIN JAMES Ot 724.4 07/30/2014 ALBIN JAMES Ot V45.4 08/12/2014 DANIEL SOMMERS MD Ot 724.02 08/12/2014 TOOTIE BARRAGAN, DANIEL Sutton Ot V45.4 09/29/2014 Ot 435.9 10/13/2014 Ot 435.9 10/30/2014 TEJAS BLAKE MD Ot V76.12 10/31/2014 TEJAS BLAKE MD Ot V76.12 11/18/2014 TOOTIE BARRAGAN, DANIEL Sutton Ot 724.02 11/18/2014 TOOTIE BARRAGAN, DANIEL Sutton Ot 724.4 11/26/2014 TEJAS BLAKE MD Ot V76.12 03/13/2015 Ot V76.12 03/13/2015 Ot V76.12 03/13/2015 Ot 401.1 03/13/2015 Ot 562.10 03/13/2015 Ot 787.3 03/13/2015 Ot 789.02 03/13/2015 Ot V16.41 03/13/2015 Ot V76.12 03/13/2015 ALY DOSAHARA Ot 722.52 03/13/2015 JORGE BARRAGAN, WALLY Jung Ot 724.02 03/13/2015 JORGE BARRAGAN, WALLY Jung Ot V72.63 03/13/2015 JORGE BARRAGAN, WALLY Jung Ot V74.8 03/13/2015 JORGE BARRAGAN, WALLY Jung Ot 724.02 03/13/2015 TEJAS BLAKE MD Ot V76.12 03/13/2015 JORGE BARRAGAN, WALLY Jung Ot 724.02 03/13/2015 MIN JAMESSHUA A Ot 724.02 03/13/2015 CHERI JAMESUA A Ot 724.4 03/13/2015 TOOTIE BARRAGAN, DANIEL Sutton Ot 724.02 03/13/2015 DANIEL SOMMERS MD Ot 724.4 03/13/2015 MATHIEU JACINTO ALBIN A Ot 724.02 03/13/2015 MIN JAMESSHUA A Ot 724.4 03/13/2015 MIN JAMESSHUA A Ot V45.4 03/13/2015 DANIEL SOMMERS MD Ot 724.02 03/13/2015 TOOTIE BARRAGAN, DANIEL Sutton Ot V45.4 03/13/2015 Ot 435.9 03/13/2015 TEJAS BLAKE MD Ot V76.12 03/13/2015 DANIEL SOMMERS MD Ot 724.02 03/13/2015 DANIEL SOMMERS MD Ot 724.4 05/31/2015 ALBIN JAMES Ot M48.06 11/08/2015 AMBIKA HERNANDEZ DO Ot Z12.31 ENCNTR SCREEN MAMMOGRAM FOR MALIGNANT NE 01/05/2016 MARIIA PALAFOX DO Ot M54.16 RADICULOPATHY, LUMBAR REGION 02/08/2016 MARIIA PALAFOX DO Ot M54.16 RADICULOPATHY, LUMBAR REGION 02/09/2016 GORGE BARRAGAN, NICHO Sutton Ot M51.16 INTERVERTEBRAL DISC DISORDERS W RADICULO 02/09/2016 GORGE BARRAGAN, NICHO Sutton Ot M96.1 POSTLAMINECTOMY SYNDROME, NOT ELSEWHERE 02/09/2016 GORGE BARRAGAN, NICHO Sutton Ot Z79.899 OTHER REGISTERED MIDWIFE (CURRENT) DRUG THERAPY 03/25/2016 Ot V76.12 OTH SCREEN MAMMO-MALIGN NEOPLASM OF YANNA 03/25/2016 Ot 401.1 BENIGN HYPERTENSION 03/25/2016 Ot 562.10 DIVERTICULOSIS COLON (W/O MENT OF HEMORR 03/25/2016 Ot 787.3 FLATUL/ ERUCTAT/GAS PAIN 03/25/2016 Ot 789.02 ABDOMINAL PAIN, LEFT UPPER QUADRANT 03/25/2016 Ot V16.41 FAM HX-MAL NEOP-OVARY 03/25/2016 Ot V76.12 OTH SCREEN MAMMO-MALIGN NEOPLASM OF YANNA 03/25/2016 MISSAHARA SEGURA DO P Ot 722.52 LUMB/LUMBOSAC DISC DEGEN 03/25/2016 JORGE BARRAGAN, WALLY Jung Ot 724.02 SPINAL STENOSIS, LUMBAR REG, W/OUT NEURO 03/25/2016 JORGE BARRAGAN, WALLY Jung Ot V72.63 PRE-PROCEDURAL LABORATORY EXAMINATION 03/25/2016 WALLY PATEL MD Ot V74.8 SCREEN-BACTERIAL DIS NEC 03/25/2016 WALLY PATEL MD Ot 724.02 SPINAL STENOSIS, LUMBAR REG, W/OUT NEURO 03/25/2016 LOU BARRAGAN, TEJAS Macedo Ot V76.12 OTH SCREEN MAMMO-MALIGN NEOPLASM OF YANNA 03/25/2016 WALLY PATEL MD Ot 724.02 SPINAL STENOSIS, LUMBAR REG, W/OUT NEURO 03/25/2016 ALBIN JAMES Ot 724.02 SPINAL STENOSIS, LUMBAR REG, W/OUT NEURO 03/25/2016 ALBIN JAMES Ot 724.4 LUMBOSACRAL NEURITIS NOS 03/25/2016 TOOTIE BARRAGAN, DANIEL Sutton Ot 724.02 SPINAL STENOSIS, LUMBAR REG, W/OUT NEURO 03/25/2016 TOOTIE BARRAGAN, DANIEL Sutton Ot 724.4 LUMBOSACRAL NEURITIS NOS 03/25/2016 ALBIN JAMES Ot 724.02 SPINAL STENOSIS, LUMBAR REG, W/OUT NEURO 03/25/2016 ALBIN JAMES Ot 724.4 LUMBOSACRAL NEURITIS NOS 03/25/2016 ALIBN JAMES Ot V45.4 ARTHRODESIS STATUS 03/25/2016 TOOTIE BARRAGAN, DANIEL Sutton Ot 724.02 SPINAL STENOSIS, LUMBAR REG, W/OUT NEURO 03/25/2016 TOOTIE BARRAGAN, DANIEL Sutton Ot V45.4 ARTHRODESIS STATUS 03/25/2016 Ot 435.9 TRANS CEREB ISCHEMIA NOS 03/25/2016 LOU BARRAGAN, TEJAS Macedo Ot V76.12 OTH SCREEN MAMMO-MALIGN NEOPLASM OF YANNA 03/25/2016 TOOTIE BARRAGAN, DANIEL Sutton Ot 724.02 SPINAL STENOSIS, LUMBAR REG, W/OUT NEURO 03/25/2016 TOOTIE BARRAGAN, DANIEL Sutton Ot 724.4 LUMBOSACRAL NEURITIS NOS 03/25/2016 ALBIN JAMES Ot M48.06 SPINAL STENOSIS, LUMBAR REGION 03/25/2016 AMBIKA HERNANDEZ DO Ot Z12.31 ENCNTR SCREEN MAMMOGRAM FOR MALIGNANT NE 03/25/2016 MARIIA PALAFOX DO Ot M54.16 RADICULOPATHY, LUMBAR REGION 03/25/2016 Ot V76.12 OTH SCREEN MAMMO-MALIGN NEOPLASM OF YANNA 03/25/2016 Ot 401.1 BENIGN HYPERTENSION 03/25/2016 Ot 562.10 DIVERTICULOSIS COLON (W/O MENT OF HEMORR 03/25/2016 Ot 787.3 FLATUL/ ERUCTAT/GAS PAIN 03/25/2016 Ot 789.02 ABDOMINAL PAIN, LEFT UPPER QUADRANT 03/25/2016 Ot V16.41 FAM HX-MAL NEOP-OVARY 03/25/2016 Ot V76.12 OTH SCREEN MAMMO-MALIGN NEOPLASM OF YANNA 03/25/2016 MISASI DO, SAHARA P Ot 722.52 LUMB/LUMBOSAC DISC DEGEN 03/25/2016 JORGE BARRAGAN, WALLY Jung Ot 724.02 SPINAL STENOSIS, LUMBAR REG, W/OUT NEURO 03/25/2016 JORGE BARRAGAN, WALLY Jung Ot V72.63 PRE-PROCEDURAL LABORATORY EXAMINATION 03/25/2016 JORGE BARRAGAN, WALLY Jung Ot V74.8 SCREEN-BACTERIAL DIS NEC 03/25/2016 WALLY PATEL MD Ot 724.02 SPINAL STENOSIS, LUMBAR REG, W/OUT NEURO 03/25/2016 LOU BARRAGAN, TEJAS Macedo Ot V76.12 OTH SCREEN MAMMO-MALIGN NEOPLASM OF YANNA 03/25/2016 WALLY PATEL MD Ot 724.02 SPINAL STENOSIS, LUMBAR REG, W/OUT NEURO 03/25/2016 ALBIN JAMES Ot 724.02 SPINAL STENOSIS, LUMBAR REG, W/OUT NEURO 03/25/2016 ALBIN JAMES Ot 724.4 LUMBOSACRAL NEURITIS NOS 03/25/2016 TOOTIE BARRAGAN, DANIEL Sutton Ot 724.02 SPINAL STENOSIS, LUMBAR REG, W/OUT NEURO 03/25/2016 TOOTIE BARRAGAN, DANIEL Sutton Ot 724.4 LUMBOSACRAL NEURITIS NOS 03/25/2016 ALBIN JAMES A Ot 724.02 SPINAL STENOSIS, LUMBAR REG, W/OUT NEURO 03/25/2016 ALBIN JAMES Ot 724.4 LUMBOSACRAL NEURITIS NOS 03/25/2016 ALBIN JAMES Ot V45.4 ARTHRODESIS STATUS 03/25/2016 TOOTIE BARRAGAN, DANIEL Sutton Ot 724.02 SPINAL STENOSIS, LUMBAR REG, W/OUT NEURO 03/25/2016 TOOTIE BARRAGAN, DANIEL Sutton Ot V45.4 ARTHRODESIS STATUS 03/25/2016 Ot 435.9 TRANS CEREB ISCHEMIA NOS 03/25/2016 LOU BARRAGAN, TEJAS Macedo Ot V76.12 OTH SCREEN MAMMO-MALIGN NEOPLASM OF YANNA 03/25/2016 TOOTIE BARRAGAN, DANIEL Sutton Ot 724.02 SPINAL STENOSIS, LUMBAR REG, W/OUT NEURO 03/25/2016 TOOTIE BARRAGAN, DANIEL Sutton Ot 724.4 LUMBOSACRAL NEURITIS NOS 03/25/2016 MATHIEU JACINTO, ALBIN Adame Ot M48.06 SPINAL STENOSIS, LUMBAR REGION 03/25/2016 AMBIKA HERNANDEZ DO Ot Z12.31 ENCNTR SCREEN MAMMOGRAM FOR MALIGNANT NE 03/25/2016 MARIIA PALAFOX DO Ot M54.16 RADICULOPATHY, LUMBAR REGION 04/11/2016 NICHO PENNINGTON MD Ot M51.16 INTERVERTEBRAL DISC DISORDERS W RADICULO 04/11/2016 NICHO PENNINGTON MD Ot M53.3 SACROCOCCYGEAL DISORDERS, NOT ELSEWHERE 04/11/2016 NICHO PENNINGTON MD Ot M96.1 POSTLAMINECTOMY SYNDROME, NOT ELSEWHERE 04/11/2016 NICHO PENNINGTON MD Ot Z79.899 OTHER REGISTERED MIDWIFE (CURRENT) DRUG THERAPY 04/30/2016 NICHO PENNINGTON MD Ot M51.16 INTERVERTEBRAL DISC DISORDERS W RADICULO 04/30/2016 NICHO PENNINGTON MD, Ot M53.3 SACROCOCCYGEAL DISORDERS, NOT ELSEWHERE 04/30/2016 NICHO PENNINGTON MD Ot M96.1 POSTLAMINECTOMY SYNDROME, NOT ELSEWHERE 04/30/2016 NICHO PENNINGTON MD Ot Z79.899 OTHER REGISTERED MIDWIFE (CURRENT) DRUG THERAPY 06/14/2016 Ot 401.1 BENIGN HYPERTENSION 06/14/2016 Ot 562.10 DIVERTICULOSIS COLON (W/O MENT OF HEMORR 06/14/2016 Ot 787.3 FLATUL/ ERUCTAT/GAS PAIN 06/14/2016 Ot 789.02 ABDOMINAL PAIN, LEFT UPPER QUADRANT 06/14/2016 Ot V16.41 FAM HX-MAL NEOP-OVARY 06/14/2016 Ot V76.12 OTH SCREEN MAMMO-MALIGN NEOPLASM OF YANNA 06/14/2016 SAHARA LU DO Ot 722.52 LUMB/LUMBOSAC DISC DEGEN 06/14/2016 JORGE BARRAGAN, WALLY Jung Ot 724.02 SPINAL STENOSIS, LUMBAR REG, W/OUT NEURO 06/14/2016 JORGE BARRAGAN, WALLY Jung Ot V72.63 PRE-PROCEDURAL LABORATORY EXAMINATION 06/14/2016 JORGE BARRAGAN, WALLY Jung Ot V74.8 SCREEN-BACTERIAL DIS NEC 06/14/2016 JORGE BARRAGAN, WALLY Jung Ot 724.02 SPINAL STENOSIS, LUMBAR REG, W/OUT NEURO 06/14/2016 LOU BARRAGAN, TEJAS Macedo Ot V76.12 OTH SCREEN MAMMO-MALIGN NEOPLASM OF YANNA 06/14/2016 JORGE BARRAGAN, WALLY Jung Ot 724.02 SPINAL STENOSIS, LUMBAR REG, W/OUT NEURO 06/14/2016 ALBIN JAMES A Ot 724.02 SPINAL STENOSIS, LUMBAR REG, W/OUT NEURO 06/14/2016 MIN JAMESSHUA A Ot 724.4 LUMBOSACRAL NEURITIS NOS 06/14/2016 TOOTIE BARRAGAN, DANIEL Sutton Ot 724.02 SPINAL STENOSIS, LUMBAR REG, W/OUT NEURO 06/14/2016 TOOTIE BARRAGAN, DANIEL Sutton Ot 724.4 LUMBOSACRAL NEURITIS NOS 06/14/2016 MIN JAMESSHUA A Ot 724.02 SPINAL STENOSIS, LUMBAR REG, W/OUT NEURO 06/14/2016 ALBIN JAMES A Ot 724.4 LUMBOSACRAL NEURITIS NOS 06/14/2016 CHERI JAMESUA A Ot V45.4 ARTHRODESIS STATUS 06/14/2016 TOOTIE BARRAGAN, DANIEL Sutton Ot 724.02 SPINAL STENOSIS, LUMBAR REG, W/OUT NEURO 06/14/2016 TOOTIE BARRAGAN, DANIEL Sutton Ot V45.4 ARTHRODESIS STATUS 06/14/2016 Ot 435.9 TRANS CEREB ISCHEMIA NOS 06/14/2016 LOU BARRAGAN, TEJAS Macedo Ot V76.12 OTH SCREEN MAMMO-MALIGN NEOPLASM OF YANNA 06/14/2016 TOOTIE BARRAGAN, DANIEL Sutton Ot 724.02 SPINAL STENOSIS, LUMBAR REG, W/OUT NEURO 06/14/2016 DANIEL SOMMERS MD Ot 724.4 LUMBOSACRAL NEURITIS NOS 06/14/2016 CHERI JAMESUA A Ot M48.06 SPINAL STENOSIS, LUMBAR REGION 06/14/2016 AMBIKA HERNANDEZ DO Ot Z12.31 ENCNTR SCREEN MAMMOGRAM FOR MALIGNANT NE 06/14/2016 MARIIA PALAFOX DO Ot M54.16 RADICULOPATHY, LUMBAR REGION 06/14/2016 NICHO PENNINGTON MD Ot M51.16 INTERVERTEBRAL DISC DISORDERS W RADICULO 06/14/2016 NICHO PENNINGTON MD Ot M53.3 SACROCOCCYGEAL DISORDERS, NOT ELSEWHERE 06/14/2016 NICHO PENNINGTON MD Ot M96.1 POSTLAMINECTOMY SYNDROME, NOT ELSEWHERE 06/14/2016 NICHO PENNINGTON MD Ot Z79.899 OTHER REGISTERED MIDWIFE (CURRENT) DRUG THERAPY 06/14/2016 NICHO PENNINGTON MD Ot M53.3 SACROCOCCYGEAL DISORDERS, NOT ELSEWHERE 07/03/2016 NICHO PENNINGTON MD Ot M53.3 SACROCOCCYGEAL DISORDERS, NOT ELSEWHERE 11/24/2016 ORENDER DO, MABIKA S Ot E03.9 HYPOTHYROIDISM, UNSPECIFIED 11/24/2016 ORENDER DO, AMBIKA S Ot F41.9 ANXIETY DISORDER, UNSPECIFIED 11/24/2016 ORENDER DO, ABMIKA S Ot K59.03 DRUG INDUCED CONSTIPATION 11/24/2016 ORENDER DO, AMBIKA S Ot M48.00 SPINAL STENOSIS, SITE UNSPECIFIED 11/24/2016 ORENDER DO, AMBIKA S Ot M54.9 DORSALGIA, UNSPECIFIED 11/24/2016 ORENDER DO, AMBIKA S Ot R42 DIZZINESS AND GIDDINESS 11/24/2016 ORENDER DO, AMBIKA S Ot T40.2X5A ADVERSE EFFECT OF OTHER OPIOIDS, INITIAL 11/25/2016 Ot V76.12 OTH SCREEN MAMMO-MALIGN NEOPLASM OF YANNA 11/25/2016 SAHARA LU DO Ot 722.52 LUMB/LUMBOSAC DISC DEGEN 11/25/2016 WALLY PATEL MD Ot 724.02 SPINAL STENOSIS, LUMBAR REG, W/OUT NEURO 11/25/2016 WALLY PATEL MD Ot V72.63 PRE-PROCEDURAL LABORATORY EXAMINATION 11/25/2016 WALLY PATEL MD Ot V74.8 SCREEN-BACTERIAL DIS NEC 11/25/2016 WALLY PATEL MD Ot 724.02 SPINAL STENOSIS, LUMBAR REG, W/OUT NEURO 11/25/2016 TEJAS BLAKE MD Ot V76.12 OTH SCREEN MAMMO-MALIGN NEOPLASM OF YANNA 11/25/2016 WALLY PATEL MD Ot 724.02 SPINAL STENOSIS, LUMBAR REG, W/OUT NEURO 11/25/2016 ALBIN JAMES Ot 724.02 SPINAL STENOSIS, LUMBAR REG, W/OUT NEURO 11/25/2016 ALBIN JAMES Ot 724.4 LUMBOSACRAL NEURITIS NOS 11/25/2016 TOOTIE BARRAGAN, DANIEL Sutton Ot 724.02 SPINAL STENOSIS, LUMBAR REG, W/OUT NEURO 11/25/2016 DANIEL SOMMERS MD Ot 724.4 LUMBOSACRAL NEURITIS NOS 11/25/2016 ALBIN JAMES Ot 724.02 SPINAL STENOSIS, LUMBAR REG, W/OUT NEURO 11/25/2016 ALBIN JAMES Ot 724.4 LUMBOSACRAL NEURITIS NOS 11/25/2016 ALBIN JAMES Ot V45.4 ARTHRODESIS STATUS 11/25/2016 TOOTIE BARRAGAN, DANIEL Sutton Ot 724.02 SPINAL STENOSIS, LUMBAR REG, W/OUT NEURO 11/25/2016 DANIEL SOMMERS MD Ot V45.4 ARTHRODESIS STATUS 11/25/2016 Ot 435.9 TRANS CEREB ISCHEMIA NOS 11/25/2016 LOU BARRAGAN, TEJAS Macedo Ot V76.12 OTH SCREEN MAMMO-MALIGN NEOPLASM OF YANNA 11/25/2016 DANIEL SOMMERS MD Ot 724.02 SPINAL STENOSIS, LUMBAR REG, W/OUT NEURO 11/25/2016 DANIEL SOMMERS MD Ot 724.4 LUMBOSACRAL NEURITIS NOS 11/25/2016 ALBIN JAMES Ot M48.06 SPINAL STENOSIS, LUMBAR REGION 11/25/2016 AMBIKA HERNANDEZ DO Ot Z12.31 ENCNTR SCREEN MAMMOGRAM FOR MALIGNANT NE 11/25/2016 MARIIA PALAFOX DO Ot M54.16 RADICULOPATHY, LUMBAR REGION 11/25/2016 NICHO PENNINGTON MD Ot M51.16 INTERVERTEBRAL DISC DISORDERS W RADICULO 11/25/2016 NICHO PENNINGTON MD Ot M53.3 SACROCOCCYGEAL DISORDERS, NOT ELSEWHERE 11/25/2016 NICHO PENNINGTON MD Ot M96.1 POSTLAMINECTOMY SYNDROME, NOT ELSEWHERE 11/25/2016 NICHO PENNINGTON MD Ot Z79.899 OTHER SENIOR LIVING (CURRENT) DRUG THERAPY 01/06/2017 AMBIKA HERNANDEZ DO Ot I65.23 OCCLUSION AND STENOSIS OF BILATERAL [place] 01/06/2017 AMBIKA HERNANDEZ DO S Ot Z12.31 ENCNTR SCREEN MAMMOGRAM FOR MALIGNANT NE 01/13/2017 ORENDER DO, AMBIKA S Ot I65.23 OCCLUSION AND STENOSIS OF BILATERAL [place] 01/13/2017 ORENDER DO, AMBIKA S Ot Z12.31 ENCNTR SCREEN MAMMOGRAM FOR MALIGNANT NE 01/15/2017 ORENDER DO, AMBIKA S Ot I65.23 OCCLUSION AND STENOSIS OF BILATERAL [place] 01/15/2017 ORENDER DO, AMBIKA S Ot Z12.31 ENCNTR SCREEN MAMMOGRAM FOR MALIGNANT NE 01/20/2017 ORENDER DO, AMBIKA S Ot I65.23 OCCLUSION AND STENOSIS OF BILATERAL [place] 01/20/2017 ORENDER DO, AMBIKA S Ot Z12.31 ENCNTR SCREEN MAMMOGRAM FOR MALIGNANT NE 01/20/2017 ORENDER DO, AMBIKA S Ot I65.23 OCCLUSION AND STENOSIS OF BILATERAL [place] 01/20/2017 ORENDER DO, AMBIKA S Ot Z12.31 ENCNTR SCREEN MAMMOGRAM FOR MALIGNANT NE 01/22/2017 ORENDER DO, AMBIKA S Ot I65.23 OCCLUSION AND STENOSIS OF BILATERAL [place] 01/22/2017 ORENDER DO, AMBIKA S Ot Z12.31 ENCNTR SCREEN MAMMOGRAM FOR MALIGNANT NE 02/05/2017 ORENDER DO, AMBIKA S Ot I65.23 OCCLUSION AND STENOSIS OF BILATERAL [place] 02/05/2017 ORENDER DO, AMBIKA S Ot Z12.31 ENCNTR SCREEN MAMMOGRAM FOR MALIGNANT NE 04/23/2017 ROGER YEN DO Ot M48.061 SPINAL STENOSIS, LUMBAR REGION WITHOUT N 04/23/2017 LISANDON ROGER KENNEDY Ot M51.16 INTERVERTEBRAL DISC DISORDERS W RADICULO 04/23/2017 LISANDON DOROGER Ot N28.89 OTHER SPECIFIED DISORDERS OF KIDNEY AND 04/30/2017 ORENDER DO, AMBIKA S Ot R93.422 ABNORMAL RADIOLOGIC FINDINGS ON DX IMAGI 05/13/2017 ROGER YEN DO Ot M48.061 SPINAL STENOSIS, LUMBAR REGION WITHOUT N 05/13/2017 LISANDON DO, ROGER L Ot M51.16 INTERVERTEBRAL DISC DISORDERS W RADICULO 05/13/2017 HEARNDON DOROGER L Ot N28.89 OTHER SPECIFIED DISORDERS OF KIDNEY AND 05/20/2017 ORENDER DO AMBIKA S Ot R93.422 ABNORMAL RADIOLOGIC FINDINGS ON DX IMAGI 10/14/2017 Ot V76.12 OTH SCREEN MAMMO-MALIGN NEOPLASM OF YANNA 10/14/2017 MISASI DO, SAHARA P Ot 722.52 LUMB/LUMBOSAC DISC DEGEN 10/14/2017 JORGE BARRAGAN, WALLY Jung Ot 724.02 SPINAL STENOSIS, LUMBAR REG, W/OUT NEURO 10/14/2017 JORGE BARRAGAN, WALLY Jung Ot V72.63 PRE-PROCEDURAL LABORATORY EXAMINATION 10/14/2017 JORGE BARRAGAN, WALLY Jung Ot V74.8 SCREEN-BACTERIAL DIS NEC 10/14/2017 WALLY PATEL MD Ot 724.02 SPINAL STENOSIS, LUMBAR REG, W/OUT NEURO 10/14/2017 LOU BARRAGAN, TEJAS Macedo Ot V76.12 OTH SCREEN MAMMO-MALIGN NEOPLASM OF YANNA 10/14/2017 JORGE BARRAGAN, WALLY Jung Ot 724.02 SPINAL STENOSIS, LUMBAR REG, W/OUT NEURO 10/14/2017 ALBIN JAMES A Ot 724.02 SPINAL STENOSIS, LUMBAR REG, W/OUT NEURO 10/14/2017 ALBIN JAMES A Ot 724.4 LUMBOSACRAL NEURITIS NOS 10/14/2017 TOOTIE BARRAGAN, DANIEL Sutton Ot 724.02 SPINAL STENOSIS, LUMBAR REG, W/OUT NEURO 10/14/2017 TOOTIE BARRAGAN, DANIEL Sutton Ot 724.4 LUMBOSACRAL NEURITIS NOS 10/14/2017 ALBIN JAMES A Ot 724.02 SPINAL STENOSIS, LUMBAR REG, W/OUT NEURO 10/14/2017 ALBIN JAMES Ot 724.4 LUMBOSACRAL NEURITIS NOS 10/14/2017 ALBIN JAMES Ot V45.4 ARTHRODESIS STATUS 10/14/2017 TOOTIE BARRAGAN, DANIEL Sutton Ot 724.02 SPINAL STENOSIS, LUMBAR REG, W/OUT NEURO 10/14/2017 TOOTIE BARRAGAN, DANIEL Sutton Ot V45.4 ARTHRODESIS STATUS 10/14/2017 Ot 435.9 TRANS CEREB ISCHEMIA NOS 10/14/2017 LOU BARRAGAN, TEJAS Macedo Ot V76.12 OTH SCREEN MAMMO-MALIGN NEOPLASM OF YANNA 10/14/2017 TOOTIE BARRAGAN, DANIEL Sutton Ot 724.02 SPINAL STENOSIS, LUMBAR REG, W/OUT NEURO 10/14/2017 TOOTIE BARRAGAN, DANIEL Sutton Ot 724.4 LUMBOSACRAL NEURITIS NOS 10/14/2017 MATHIEU JACINTO, ALBIN Adame Ot M48.06 SPINAL STENOSIS, LUMBAR REGION 10/14/2017 AMBIKA HERNANDEZ DO Ot Z12.31 ENCNTR SCREEN MAMMOGRAM FOR MALIGNANT NE 10/14/2017 JAVY KENNEDY MARIIA Meier Ot M54.16 RADICULOPATHY, LUMBAR REGION 10/14/2017 GORGE BARRAGAN, NICHO Sutton Ot M51.16 INTERVERTEBRAL DISC DISORDERS W RADICULO 10/14/2017 GORGE BARRAGAN, NICHO Sutton Ot M53.3 SACROCOCCYGEAL DISORDERS, NOT ELSEWHERE 10/14/2017 NICHO PENNINGTON MD Ot M96.1 POSTLAMINECTOMY SYNDROME, NOT ELSEWHERE 10/14/2017 NICHO PENNINGTON MD Ot Z79.899 OTHER SENIOR LIVING (CURRENT) DRUG THERAPY 10/14/2017 AMBIKA HERNANDEZ DO S Ot I65.23 OCCLUSION AND STENOSIS OF BILATERAL [place] 10/14/2017 AMBIKA HERNANDEZ DO S Ot Z12.31 ENCNTR SCREEN MAMMOGRAM FOR MALIGNANT NE 10/14/2017 ROGER YEN DO Ot M48.061 SPINAL STENOSIS, LUMBAR REGION WITHOUT N 10/14/2017 ROGER YEN DO Ot M51.16 INTERVERTEBRAL DISC DISORDERS W RADICULO 10/14/2017 ROGER YEN DO Ot N28.89 OTHER SPECIFIED DISORDERS OF KIDNEY AND 10/14/2017 AMBIKA HERNANDEZ DO S Ot R93.422 ABNORMAL RADIOLOGIC FINDINGS ON DX IMAGI 10/17/2017 ROGER YEN DO Ot M54.16 RADICULOPATHY, LUMBAR REGION 10/17/2017 ROGER YEN DO Ot Z79.899 OTHER REGISTERED MIDWIFE (CURRENT) DRUG THERAPY 10/17/2017 ROGER YEN DO Ot Z88.0 ALLERGY STATUS TO PENICILLIN 11/06/2017 ROGER YEN DO Ot M54.16 RADICULOPATHY, LUMBAR REGION 11/06/2017 ROGER YEN DO Ot Z79.899 OTHER SENIOR LIVING (CURRENT) DRUG THERAPY 11/06/2017 ROGER YEN DO Ot Z88.0 ALLERGY STATUS TO PENICILLIN 01/08/2018 AMBIKA HERNANDEZ DO S Ot R06.00 DYSPNEA, UNSPECIFIED 01/08/2018 SALLIENDER , AMBIKA S Ot R06.00 DYSPNEA, UNSPECIFIED 01/12/2018 FARSHAD ROGER KENNEDY Ot M54.16 RADICULOPATHY, LUMBAR REGION 01/27/2018 SALLIENDER , AMBIKA S Ot R06.00 DYSPNEA, UNSPECIFIED 03/18/2018 SALLIENDER , AMBIKA Mackenzie Ot I42.2 OTHER HYPERTROPHIC CARDIOMYOPATHY 03/18/2018 SALLIENDER , AMBIKA S Ot R01.1 CARDIAC MURMUR, UNSPECIFIED 03/18/2018 SALLIENDER DO, AMBIKA Mackenzie Ot R06.00 DYSPNEA, UNSPECIFIED 03/18/2018 SALLIENDER , AMBIKA Mackenzie Ot R53.83 OTHER FATIGUE 03/18/2018 ROGER YEN DO Ot M47.814 SPONDYLOSIS W/O MYELOPATHY OR RADICULOPA 03/18/2018 ROGER YEN DO Ot 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 Results Test Result Range Complete blood count (CBC) with automated white blood cell (WBC) differential - 11/23/16 08:20 Blood leukocytes automated count (number/volume) 7.0 10*3/uL 4.3-11.0 Blood erythrocytes automated count (number/volume) 3.87 10*6/uL 4.35-5.85 Venous blood hemoglobin measurement (mass/volume) 12.2 g/dL 11.5-16.0 Blood hematocrit (volume fraction) 36 % 35-52 Automated erythrocyte mean corpuscular volume 94 [foz_us] 80-99 Automated erythrocyte mean corpuscular hemoglobin (mass per erythrocyte) 32 pg 25-34 Automated erythrocyte mean corpuscular hemoglobin concentration measurement ( mass/volume) 34 g/dL 32-36 Automated erythrocyte distribution width ratio 13.0 % 10.0-14.5 Automated blood platelet count (count/volume) 168 10*3/uL 130-400 Automated blood platelet mean volume measurement 11.6 [foz_us] 7.4-10.4 Automated blood neutrophils/100 leukocytes 35 % 42-75 Automated blood lymphocytes/100 leukocytes 55 % 12-44 Blood monocytes/100 leukocytes 7 % 0-12 Automated blood eosinophils/100 leukocytes 2 % 0-10 Automated blood basophils/100 leukocytes 1 % 0-10 Blood neutrophils automated count (number/volume) 2.5 10*3 1.8-7.8 Blood lymphocytes automated count (number/volume) 3.9 10*3 1.0-4.0 Blood monocytes automated count (number/volume) 0.5 10*3 0.0-1.0 Automated eosinophil count 0.2 10*3/uL 0.0-0.3 Automated blood basophil count (count/volume) 0.0 10*3/uL 0.0-0.1 Comprehensive metabolic panel - 11/23/16 08:20 Serum or plasma sodium measurement (moles/volume) 143 mmol/L 135-145 Serum or plasma potassium measurement (moles/volume) 4.3 mmol/L 3.6-5.0 Serum or plasma chloride measurement (moles/volume) 107 mmol/L 98-107 Carbon dioxide 24 mmol/L 21-32 Serum or plasma anion gap determination (moles/volume) 12 mmol/L 5-14 Serum or plasma urea nitrogen measurement (mass/volume) 23 mg/dL 7-18 Serum or plasma creatinine measurement (mass/volume) 1.16 mg/dL 0.60-1.30 Serum or plasma urea nitrogen/creatinine mass ratio 20 NRG Serum or plasma creatinine measurement with calculation of estimated glomerular filtration rate 45 NRG Serum or plasma glucose measurement (mass/volume) 108 mg/dL 70-105 Serum or plasma calcium measurement (mass/volume) 9.5 mg/dL 8.5-10.1 Serum or plasma total bilirubin measurement (mass/volume) 0.5 mg/dL 0.1-1.0 Serum or plasma alkaline phosphatase measurement (enzymatic activity/volume) 48 U/L 40-136 Serum or plasma aspartate aminotransferase measurement (enzymatic activity/ volume) 32 U/L 5-34 Serum or plasma alanine aminotransferase measurement (enzymatic activity/volume ) 17 U/L 0-55 Serum or plasma protein measurement (mass/volume) 6.9 g/dL 6.4-8.2 Serum or plasma albumin measurement (mass/volume) 4.0 g/dL 3.2-4.5 Complete urinalysis with reflex to culture - 11/23/16 09:30 Urine color determination YELLOW NRG Urine clarity determination CLEAR NRG Urine pH measurement by test strip 6 5-9 Specific gravity of urine by test strip 1.010 1.016- 1.022 Urine protein assay by test strip, semi-quantitative 2+ NEGATIVE Urine glucose detection by automated test strip NEGATIVE NEGATIVE Erythrocytes detection in urine sediment by light microscopy NEGATIVE NEGATIVE Urine ketones detection by automated test strip NEGATIVE NEGATIVE Urine nitrite detection by test strip NEGATIVE NEGATIVE Urine total bilirubin detection by test strip NEGATIVE NEGATIVE Urine urobilinogen measurement by automated test strip (mass/volume) NORMAL NORMAL Urine leukocyte esterase detection by dipstick 1+ NEGATIVE Automated urine sediment erythrocyte count by microscopy (number/high power field) RARE NRG Automated urine sediment leukocyte count by microscopy (number/high power field ) RARE NRG Bacteria detection in urine sediment by light microscopy NEGATIVE NRG Squamous epithelial cells detection in urine sediment by light microscopy 0-2 NRG Crystals detection in urine sediment by light microscopy NONE NRG Casts detection in urine sediment by light microscopy NONE NRG Mucus detection in urine sediment by light microscopy NEGATIVE NRG Complete urinalysis with reflex to culture NO NRG Encounters ACCT No. Visit Date/Time Discharge Status Pt. Type Provider Facility Loc./Unit Complaint [id number] 03/09/2018 07:13:00 03/09/2018 23:59:59 CLS Outpatient JOSE DE JESUS BARRAGAN, DIANE Sutton [facility] CARD HTN,SOB,LVH,ABN ECHO [id number] 02/16/2018 12:53:00 02/16/2018 23:59:59 CLS Outpatient ROGER YEN DO [facility] RAD M54.16 M54.14 LUMBAR THORACIC RADICULOPATHY [id number] 02/06/2018 12:00:00 02/06/2018 23:59:59 CLS Outpatient AMBIKA HERNANDEZ DO S [facility] CARD CARDIAC MURMUR, FATIGUE,DYSPNEA [id number] 01/27/2018 13:29:00 01/27/2018 23:59:59 CLS Preadmit AMBIKA HERNANDEZ DO S [facility] RT DYSPNEA [id number] 01/08/2018 12:19:00 01/08/2018 14:30:00 DIS Outpatient ROGER YEN DO [facility] CARD LUMBAR RADICULOPATHY M54.16 [id number] 01/07/2018 14:01:00 01/07/2018 23:59:59 CLS Outpatient AMBIKA HERNANDEZ DO S [facility] RAD DYSPNEA [id number] 10/16/2017 14:00:00 10/16/2017 23:59:59 CLS Outpatient ROGER YEN DO [facility] CARD M54.16 LUMBAR RADICULOPATHY [id number] 04/29/2017 11:31:00 04/29/2017 23:59:59 CLS Outpatient AMBIKA HERNANDEZ DO [facility] [facility] LEFT LATERAL KINDNEY FULLNESS [id number] 04/22/2017 09:16:00 04/22/2017 23:59:59 CLS Outpatient ROGER YEN DO [facility] RAD M54.16 [id number] 03/06/2017 14:15:00 03/06/2017 23:59:59 CLS Preadmit ROGER YEN DO [facility] CARD LUMBAR RADICULOPATHY M54.16 [id number] 01/14/2017 12:52:00 01/14/2017 23:59:59 CLS Outpatient AMBIKA HERNANDEZ DO S [facility] RAD I65.23 [id number] 11/23/2016 09:57:00 11/24/2016 11:25:00 DIS Inpatient SYLVIA HERNANDEZ DOQUELINE S [facility] 4TH VERTIGO [id number] 06/14/2016 12:18:00 06/14/2016 13:04:00 DIS Outpatient NICHO PENNINGTON MD [facility] CARD SACROCOCCYGEAL DISORDERS [id number] 03/25/2016 12:18:00 03/25/2016 23:59:59 CLS Outpatient NICHO PENNINGTON MD [facility] CARD SACROCOCCYGEAL DISORDER [id number] 02/09/2016 10:22:00 02/09/2016 11:59:00 DIS Outpatient NICHO PENNINGTON MD [facility] CARD DISC DISORDER [id number] 01/03/2016 10:56:00 01/03/2016 23:59:59 CLS Outpatient MARIIA PALAFOX DO [facility] RAD LUMBAR RADICULOPATHY, ALLAN LAMINECTOMY L4-L5 [id number] 10/19/2015 11:22:00 10/19/2015 23:59:59 CLS Outpatient AMBIKA HERNANDEZ DO [facility] RAD SCREENING [id number] 05/11/2015 11:55:00 05/11/2015 23:59:59 CLS Outpatient ALBIN JAMES [facility] RAD LBP, WITH RADICULOPATHY [id number] 10/18/2014 08:58:00 10/18/2014 23:59:59 CLS Outpatient DANIEL SOMMERS MD [facility] RAD LUMBAR STENOSIS [id number] 10/17/2014 10:43:00 10/17/2014 23:59:59 CLS Outpatient TEJAS BLAKE MD [facility] RAD SCREENING [id number] 07/22/2014 12:19:00 07/22/2014 23:59:59 CLS Outpatient DANIEL SOMMERS MD [facility] RAD LUMBAR STENOSIS [id number] 07/12/2014 13:54:00 07/12/2014 23:59:59 CLS Outpatient ALBIN JAMES [facility] RAD SPINAL STENOSIS,BACK PAIN [id number] 06/13/2014 08:54:00 06/13/2014 23:59:59 CLS Outpatient DANIEL SOMMERS MD [facility] RAD LUMBAR STENOSIS [id number] 04/25/2014 13:44:00 04/25/2014 23:59:59 CLS Outpatient ALBIN JAMES [facility] RAD SPINAL STENOSIS LUMBAR, BACK PAIN LUMBAR W/RADICUL [id number] 01/17/2014 13:01:00 01/17/2014 23:59:59 CLS Outpatient WALLY PATEL MD [facility] RAD LUMBAR STENOSIS [id number] 01/07/2014 09:13:00 01/07/2014 10:00:00 DIS Outpatient NICHO PENNINGTON MD [facility] CARD LUMBAR POST LAMINECTOMY SYNDROME [id number] 08/23/2013 11:16:00 08/23/2013 23:59:59 CLS Outpatient LOU BARRAGAN, TEJAS Macedo [facility] RAD SCREENING [id number] 07/28/2013 12:32:00 07/28/2013 23:59:59 CLS Outpatient WALLY PATEL MD [facility] RAD LUMBAR STENOSIS [id number] 04/19/2013 07:47:00 04/20/2013 13:50:00 DIS Outpatient WALLY PATEL MD [facility] SDC LUMBAR STENOSIS [id number] 04/08/2013 10:11:00 04/08/2013 23:59:59 CLS Outpatient WALLY PATEL MD [facility] PREOP CERVICAL STENOSIS [id number] 11/05/2012 13:27:00 11/05/2012 23:59:59 CLS Outpatient SAHARA LU DO [facility] RAD DISC PROTRUSION [id number] 04/21/2018 18:41:00 ACT Emergency KALPESH GARCIA MD [facility] ER HIGH BP,HEADACHE [id number] 09/05/2014 09:07:00 Document Registration [id number] 04/28/2012 11:03:00 Document Registration [id number] 01/16/2011 11:47:00 Document Registration [id number] 12/12/2010 15:04:00 Document Registration [id number] 09/29/2009 13:31:00 Document Registration [id number] 04/09/2018 13:13:59 04/09/2018 23:59:59 CLS Outpatient Ambika Hernandez [id number] 01/15/2018 17:00:00 01/15/2018 23:59:59 CLS Outpatient MONAE ESPINOSA [id number] 10/18/2014 08:58:56 ACT Document Registration
--- NOTE | 2018-04-21 19:58 | ED Cardiac General ---
History of Present Illness General Chief Complaint: Cardiac/General Problems Stated Complaint: HIGH BP,HEADACHE Nursing Triage Note: PT WAS OUTPATIENT AT [facility] STATES TODAY TO HAVE A STIMULTOR PLACED IN HER BACK FOR SPINAL STENOSIS. POST PROCEDURE HER BLOOD PRESSURE WAS ELEVATED, THE FACILITY GAVE MEDICATIONS TO BRING THE BLOOD PRESSURE DOWN, TODAY PRESENTS TO THE ED D/T HER BLOOD PRESSURE HAVING ELEVATED AGAIN. PT ALSO STATES SHE HAS HAD A HEADACHE ALL AFTERNOON THAT IMPROVES WHEN SHE STANDS. Source: patient, family (Sister) Exam Limitations: no limitations History of Present Illness Date Seen by Provider: Apr 21, 2018 Time Seen by Provider: 19:44 Initial Comments Patient presents to the ER by private conveyance with her sister and a chief complaint she's Very high blood pressure over 200 systolic over 100 diastolic that wasn't caught this morning after a external spinal stimulator was placed by orthopedics. She says they gave her 2 different injections this morning trying to get it calmed down but it did not resolve it. She thinks one of injections might of been Dramamine because she was having shaking and they said sometimes that happens after the anesthesia. She says her blood pressure never went down with the Center home and told her that if it stays that she should come to the ER. She called her doctor Dr. Hernandez but they were unable to make contact so she decided to come out when she started having a headache. She's having no blurry double vision, blindness, weakness falls. She has no chest pain nausea shortness of breath fevers chills cough, abdominal pain. She has no prior cardiac history other than high blood pressure for which she is on metoprolol succinate 25 mg daily usually she takes in the morning and she did remember this morning. She sees Dr. Quinn because she had some shortness of breath that she thinks was actually the result of a side effect to an anti- anxiety medicine Dr. Hernandez put her on because in the week between seeing Dr. Quinn and going back to get test results she stopped taking that medicine and her symptoms went away. Allergies and Home Medications Allergies Coded Allergies: Milk Containing Products (Unverified Allergy, Unknown, 04/19/13) FROM UNCODED LIST erythromycin base (Unverified Allergy, Unknown, 08/29/06) Home Medications Acetaminophen/Diphenhydramine 1 Ea Tab, 1-2 TAB PO HS PRN, (Reported) NEEDED FOR PAIN/SLEEP Alprazolam 0.25 Mg Tablet, 0.25 MG PO DAILY, (Reported) Amlodipine Besylate 5 Mg Tablet, 5 MG PO DAILY, (Reported) Aspirin 81 Mg Tablet.dr, 81 MG PO DAILY, (Reported) Biotin 1,000 Mcg Tablet, 1,000 MCG PO DAILY, (Reported) Dexamethasone 4 Mg Tablet, 4 MG PO DAILY Prescribed by: DANIEL CHESTER on 11/24/16942 Fluticasone Propionate 16 Gm Naspr, 1 SPRAY NSEACH BID PRN, (Reported) NEEDED FOR ALLERGY SYMPTOMS Gabapentin 600 Mg Tablet, 600 MG PO Q6H, (Reported) Meclizine HCl 25 Mg Tablet, 25 MG PO Q4H PRN for DIZZINESS Prescribed by: DANIEL CHESTER on 11/24/16 09 Mv,Ca,Min/Iron Fum/Fa/Lyco/Lut 1 Each Tablet, 1 TAB PO DAILY, (Reported) Tramadol HCl 50 Mg Tablet, 50-100 MG PO Q6H, (Reported) [Dairy Digestive Supp] , 2 TAB PO TID PRN, (Reported) EQUATE DAIRY DIGESTIVE SUPPLEMENT TAKES NEEDED BEFORE EATING CHEESE [Sinus & Allergy] , 2 TAB PO BID PRN, (Reported) NEEDED FOR CONGESTION EQUATE SINUS AND ALLERGY Patient Home Medication List Home Medication List Reviewed: Yes Review of Systems Review of Systems Constitutional: No chills, No diaphoresis EENTM: No Blurred Vision, No Double Vision, No Eye Pain Respiratory: Denies Cough, Denies Orthopnea Cardiovascular: Denies Chest Pain, Denies Edema, Denies Lightheadedness, Denies Palpitations, Denies Syncope Gastrointestinal: Denies Abdomen Distended, Denies Abdominal Pain, Denies Nausea Genitourinary: Denies Burning, Denies Discharge, Denies Drainage Musculoskeletal: No back pain, No joint pain Skin: No pruritus, No rash Psychiatric/Neurological: Anxiety, Headache; Denies Numbness, Denies Paresthesia, Denies Pre-Existing Deficit, Denies Seizure Past Wxszaem-Xcoabd-Nvpvor Hx Patient Social History Alcohol Use: Denies Use Recreational Drug Use: No Smoking Status: Never a Smoker Recent Foreign Travel: No Contact w/Someone Who Travel: No Recent Infectious Disease Expo: No Recent Hopitalizations: No Immunizations Up To Date Tetanus Booster (TDap): More than 5yrs PED Vaccines UTD: Yes Date of Pneumonia Vaccine: Mar 30, 2008 Seasonal Allergies Seasonal Allergies: No Past Medical History Surgeries: Yes Respiratory: No Cardiac: Yes Neurological: Yes : No Reproductive Disorders: No Female 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 Sexually Transmitted Disease: No HIV/AIDS: No Gastrointestinal: Yes Chronic Constipation Musculoskeletal: Yes Degenerate Disk Disease, Chronic Back Pain Endocrine: No Hypothyroidsim HEENT: Yes (vision changes age - patient states ) Loss of Vision: Bilateral Hearing Impairment: Denies Cancer: No Psychosocial: Yes Anxiety Integumentary: No Blood Disorders: No Adverse Reaction/Blood Tranf: No Family Medical History Alzheimer's disease Arthritis Asthma Colon cancer Completed stroke Dementia Hypertension Myocardial infarction Visual disorder Physical Exam Vital Signs Vital Signs - First Documented 04/21/18 19:26 Temp 98.1 Pulse 55 Resp 20 B/P (MAP) 214/76 (122) Pulse Ox 99 O2 Delivery Room Air Capillary Refill : Less Than 3 Seconds Height, Weight, BMI Height: 5'5.00" Weight: 140lbs. 0.0oz. 63.083032ia; 23.6 BMI Method:Stated General Appearance: No Apparent Distress, WD/WN HEENT: PERRL/EOMI, TMs Normal, Normal ENT Inspection, Pharynx Normal, Moist Mucous Membranes Neck: Full Range of Motion, Normal Inspection, Non Tender, Supple Respiratory: Chest Non Tender, Lungs Clear, Normal Breath Sounds, No Accessory Muscle Use, No Respiratory Distress Cardiovascular: Regular Rate, Rhythm, No Edema, Normal Peripheral Pulses Gastrointestinal: Normal Bowel Sounds, Non Tender, Soft Extremity: Normal Capillary Refill, Normal Inspection, Non Tender, No Pedal Edema Neurologic/Psychiatric: Alert, Oriented x3, No Motor/Sensory Deficits, Normal Mood/Affect, vascular physician II-XII Norm as Tested Skin: Normal Color, Warm/Dry Progress/Results/Core Measures Results/Orders Lab Results Laboratory Tests Test 04/21/18 19:55 Range/Units White Blood Count 7.4 4.3-11.0 10^3/uL Red Blood Count 3.89 L 4.35-5.85 10^6/uL Hemoglobin 12.2 11.5-16.0 G/DL Hematocrit 37 35-52 % Mean Corpuscular Volume 95 80-99 FL Mean Corpuscular Hemoglobin 31 25-34 PG Mean Corpuscular Hemoglobin Concent 33 32-36 G/DL Red Cell Distribution Width 12.7 10.0-14.5 % Platelet Count 188 130-400 10^3/uL Mean Platelet Volume 11.2 H 7.4-10.4 FL Neutrophils (%) (Auto) 67 42-75 % Lymphocytes (%) (Auto) 22 12-44 % Monocytes (%) (Auto) 9 0-12 % Eosinophils (%) (Auto) 1 0-10 % Basophils (%) (Auto) 0 0-10 % Neutrophils # (Auto) 5.0 1.8-7.8 X 10^3 Lymphocytes # (Auto) 1.7 1.0-4.0 X 10^3 Monocytes # (Auto) 0.7 0.0-1.0 X 10^3 Eosinophils # (Auto) 0.1 0.0-0.3 10^3/uL Basophils # (Auto) 0.0 0.0-0.1 10^3/uL Sodium Level 143 135-145 MMOL/L Potassium Level 3.9 3.6-5.0 MMOL/L Chloride Level 106 98-107 MMOL/L Carbon Dioxide Level 25 21-32 MMOL/L Anion Gap 12 5-14 MMOL/L Blood Urea Nitrogen 26 H 7-18 MG/DL Creatinine 1.13 0.60-1.30 MG/DL Estimat Glomerular Filtration Rate 46 BUN/Creatinine Ratio 23 Glucose Level 112 H 70-105 MG/DL Calcium Level 9.5 8.5-10.1 MG/DL Corrected Calcium 9.5 8.5-10.1 MG/DL Total Bilirubin 0.3 0.1-1.0 MG/DL Aspartate Amino Transf (AST/SGOT) 29 5-34 U/L Alanine Aminotransferase (ALT/SGPT) 14 0-55 U/L Alkaline Phosphatase 46 40-136 U/L Troponin I < 0.30 <0.30 NG/ML B-Type Natriuretic Peptide 199.7 H <100.0 PG/ML Total Protein 6.9 6.4-8.2 GM/DL Albumin 4.0 3.2-4.5 GM/DL Thyroid Stimulating Hormone (TSH) 2.30 0.35-4.94 UIU/ML My Orders Orders - KALPESH GARCIA BNP (04/21/18 19:51) Cbc With Automated Diff (04/21/18 19:51) Comprehensive Metabolic Panel (04/21/18 19:51) Thyroid Stimulating Hormone (04/21/18 19:51) Troponin I (04/21/18 19:51) Ua Culture If Indicated (04/21/18 19:51) Chest 1 View, Ap/Pa Only (04/21/18 19:51) Saline Lock/Iv-Start (04/21/18 19:51) Hydralazine Injection (Apresoline Inject (04/21/18 20:00) Ekg Tracing (04/21/18 20:08) Continuous Ekg Monitoring (04/21/18 20:08) Medications Given in ED Current Medications Medications Dose Ordered Sig/Deborah Route Start Time Stop Time Status Last Admin Dose Admin Hydralazine HCl 10 mg ONCE ONCE IV 04/21/18 20:00 04/21/18 20:01 DC 04/21/18 20:24 10 MG Vital Signs/I&O 04/21/18 19:26 Temp 98.1 Pulse 55 Resp 20 B/P (MAP) 214/76 (122) Pulse Ox 99 O2 Delivery Room Air Blood Pressure Mean: 122 Progress Progress Note : Time: 20:00 Progress Note We'll obtain some labs, EKG chest x-ray included troponin and urinalysis. I suspect that he probably used the beta blockers this morning since her heart rate is still in the low 55-50 range. We'll go ahead and use hydralazine to try and lower her blood pressure 30-40% and then plan to consult cardiology. Initial ECG Impression Date: Apr 21, 2018 Initial ECG Impression Time: 23:02 Initial ECG Rate: 55 Initial ECG Rhythm: Normal Sinus Initial ECG Intervals: Normal Initial ECG Impression: Normal, Nonspecific Changes Comment No ST elevation or depression. RBBB Diagnostic Imaging Diagonstic Imaging: Xray Plain Films/CT/US/NM/MRI: chest (1v) Comments [facility] [employer] [facility] [place], [place] NAME: CARIN BECK [facility] REC#: [id number] PT STATUS: REG ER : 1940 PHYSICIAN: KALPESH GARCIA MD ADMIT DATE: 04/21/18/ER Draft Date of Exam:04/21/18 CHEST 1 VIEW, AP/PA ONLY INDICATION: Hypertension. TECHNIQUE: Single view chest 8:19 PM. CORRELATION STUDY: 01/07/2018 FINDINGS: Heart size and vascularity are stable. The lungs are clear with no consolidating infiltrate. There is no significant effusion or pneumothorax. There has been interval placement of a thoracic spine stimulator. IMPRESSION: 1. Negative for acute abnormality of the chest. Interval placement of the thoracic spine stimulatory since prior imaging. Dictated on workstation # [id number] Dict: 04/21/182027 Trans: 04/21/182032 [facility] [id number] Interpreted by: BRITTNEY CARRION DO Electronically signed by: Reviewed: Reviewed by Me Consults : Consulting Physician: DIANE QUINN MD Consults Notes Discussed her blood pressure case lab imaging and EKG and he agrees were not really sure why her blood pressures up and maybe something to do with either the stimulator or the procedure itself. He would suggest giving her 5 mg of amlodipine now and then have her do it daily and follow him up in the clinic. Departure Impression Primary Impression: Hypertensive urgency Disposition: 01 HOME, SELF-CARE Condition: Stable Departure-Patient Inst. Decision time for Depature: 21:29 Referrals: DIANE QUINN MD, JACQUELINE S DO (PCP/Family) Primary Care Physician Patient Instructions: High Blood Pressure (DC) Add. Discharge Instructions: Tomorrow morning and check your blood pressure like to get up and take her metoprolol succinate 25 mg and her amlodipine [address] Quinn for a follow-up appointment. If you're having high blood pressure especially accompanied with any symptoms such as intractable nausea vomiting, headache, chest pain or shortness of breath then you should return to the ER. All discharge instructions reviewed with patient and/or family. Voiced understanding. Copy Copies To 1: DIANE QUINN MD; YADIEL HERNANDEZ TITUS J Apr 21, 2018 19:58
[2018-04-21] MEDS ORDERED: hydrALAZINE (APESOLINE) 20 MG/ML VIAL IV ONE (20:00)
[2018-04-21 20:06] LABS: BASOPHILS % (AUTO) 0 % (0-10); EOSINOPHILS # (AUTO) 0.1 10^3/uL (0.0-0.3); EOSINOPHILS % (AUTO) 1 % (0-10); HEMATOCRIT 37 % (35-52); HEMOGLOBIN 12.2 G/DL (11.5-16.0); LYMPHOCYTES # (AUTO) 1.7 X 10^3 (1.0-4.0); LYMPHOCYTES % (AUTO) 22 % (12-44); MEAN CORPUSCULAR HEMOGLOBIN 31 PG (25-34); MEAN CORPUSCULAR HGB CONC 33 G/DL (32-36); MEAN CORPUSCULAR VOLUME 95 FL (80-99); MEAN PLATELET VOLUME 11.2 FL (7.4-10.4); MONOCYTES # (AUTO) 0.7 X 10^3 (0.0-1.0); MONOCYTES % (AUTO) 9 % (0-12); NEUTROPHILS % (AUTO) 67 % (42-75); PLATELET COUNT 188 10^3/uL (130-400); RED BLOOD COUNT 3.89 10^6/uL (4.35-5.85); RED CELL DISTRIBUTION WIDTH 12.7 % (10.0-14.5); WHITE BLOOD COUNT 7.4 10^3/uL (4.3-11.0)
[2018-04-21 20:25] LABS: ALANINE AMINOTRANSFERASE 14 U/L (0-55); ALKALINE PHOSPHATASE 46 U/L (40-136); BILIRUBIN,TOTAL 0.3 MG/DL (0.1-1.0); BUN/CREATININE RATIO 23; CALCIUM 9.5 MG/DL (8.5-10.1); CARBON DIOXIDE 25 MMOL/L (21-32); CHLORIDE 106 MMOL/L (98-107); CREATININE SERUM 1.13 MG/DL (0.60-1.30); GFR ESTIMATED 46; GLUCOSE 112 MG/DL (70-105); POTASSIUM 3.9 MMOL/L (3.6-5.0); SODIUM 143 MMOL/L (135-145); TOTAL PROTEIN 6.9 GM/DL (6.4-8.2)
--- NOTE | 2018-04-21 20:34 | Diagnostic Imaging Report ---
INDICATION: Hypertension. TECHNIQUE: Single view chest 8:19 PM. CORRELATION STUDY: 01/07/2018 FINDINGS: Heart size and vascularity are stable. The lungs are clear with no consolidating infiltrate. There is no significant effusion or pneumothorax. There has been interval placement of a thoracic spine stimulator. IMPRESSION: 1. Negative for acute abnormality of the chest. Interval placement of the thoracic spine stimulatory since prior imaging. Dictated by: Dictated on workstation # [id number]
[2018-04-21] MEDS ORDERED: amLODIPine 5 MG (NORVASC) TAB PO ONE (21:45)
[2018-04-21 21:55] VITALS: BP 179/72
[2018-04-22] MEDS ORDERED: inSUlin ASPART (NovoLOG) 1 UNIT/0.01 ML (CHARGE PER UNIT) ONE (23:14)
[2018-04-22] MEDS ORDERED: inSUlin DETERMIR 1 UNIT/0.01 ML (LEVEMIR) CHARGE PER UNIT SQ ONE (23:17)
== END 2018-04-21 21:58 | disposition home or self-care (01) ==
LOC: EDUNIT# 18:40 → ER 18:41
DX: I16.0 Hypertensive urgency (principal); F41.9 Anxiety disorder, unspecified; E03.9 Hypothyroidism, unspecified; Z87.19 Personal history of other diseases of the digestive system; Z80.0 Family history of malignant neoplasm of digestive organs; Z91.011 Allergy to milk products; Z88.1 Allergy status to other antibiotic agents; Z79.82 Long term (current) use of aspirin
CPT/HCPCS: 36415; 71045; 80053; 83880; 84443; 84484; 85025; 93005

== ENCOUNTER → 2018-07-16 | Outpatient (CLI) | payer MEDICARE, OTHER ==
--- NOTE | 2018-07-16 17:49 | Diagnostic Imaging Report ---
PROCEDURE: MRI right joint upper extremity without contrast. TECHNIQUE: Multiplanar, multisequence [id number] MRI of the right upper extremity was accomplished. INDICATION: Shoulder pain. COMPARISON: There are no prior studies available for comparison. FINDINGS: There are poorly defined areas of altered signal within the rotator cuff. These are more likely secondary to tendinosis than to a partial tear. There does appear to be a small tear of the posterior half of the rotator cuff. The supraspinatus muscle is not retracted or bunched. There is hypertrophy of the acromioclavicular joint, and this does result in narrowing of the outlet for the supraspinatus muscle. There is also some fluid in both the subacromial and subdeltoid bursa, and the presence of the fluid does suggest that there is an element of inflammation present. This may be related to bursitis/tendinitis or combination of both. The axial images do show considerable cystic degeneration of the humeral head in the region of the bicipital groove. The biceps tendon as it courses over the humeral head is indistinct and may be partially torn. There is also somewhat greater than usually seen fluid about the biceps tendon as it extends along the proximal humerus. This too may be a sign of inflammation. The subscapularis tendon appears to be intact. There is a tear of the anterior labrum, and the mid portion of the labrum is thinned and most likely torn on a degenerative basis. There is a small joint effusion present. There is no acute bony abnormality appreciated. IMPRESSION: 1. There is a small partial tear of the bursal aspect of the posterior half of the rotator cuff, and there is tendinosis of the rotator cuff as well. However, the supraspinatus muscle is not retracted or bunched. 2. There is hypertrophy of the acromioclavicular joint, and this does result in narrowing of the outlet for the supraspinatus muscle. 3. The fluid in the subacromial and subdeltoid bursa suggests that there is an element of bursitis/tendinitis present. 4. The biceps tendon as it courses over the humeral head may be partially torn. 5. The labrum is torn anteriorly and centrally. 6. There is no acute bony abnormality appreciated. Dictated by: Dictated on workstation # [id number]
== END ==
LOC: RAD 13:53
PROVIDERS: ATTEND Nurse Practitioner Family
DX: M75.101 Unspecified rotator cuff tear or rupture of right shoulder, not specified as traumatic (principal); S43.491A Other sprain of right shoulder joint, initial encounter
CPT/HCPCS: 73221

== ENCOUNTER 2019-04-17 18:46 | Emergency (ER) | payer MEDICARE, OTHER ==
[~2019-04-17] VITALS: Ht 167 cm; Wt 72.0 kg
[~2019-04-17 18:46] MED LIST changes: -AMLO5TAB7 PO; +AMLO5TAB9 PO; -GABA600T2 PO; +GBPN600T PO
--- NOTE | 2019-04-17 18:59 | ED Abdominal Pain ---
General Chief Complaint: Abdominal/GI Problems Stated Complaint: NAUSEA/TIRED/L SIDE PAIN Source of Information: Patient Exam Limitations: No Limitations History of Present Illness Date Seen by Provider: Apr 17, 2019 Time Seen by Provider: 18:57 Initial Comments To ER per private vehicle from home with reports of left-sided lower abdominal pain ongoing for several weeks. She's been trying a different medication every 2 weeks to help with this, she's been treating this to lumbar spinal issues as she has a spinal stimulator in place. She has no urinary frequency or burning, chronic constipation. No fevers or chills or nausea but she has slept nearly all day today after sleeping all night last night. This general fatigue concerns or because it is unusual. Timing/Duration: Constant, Other Severity/Quality: Moderate Location: LLQ Radiation: No Radiation Activities at Onset: None Associated Symptoms: Denies Symptoms Allergies and Home Medications Allergies Coded Allergies: Milk Containing Products (Unverified Allergy, Unknown, 04/19/13) FROM UNCODED LIST erythromycin base (Unverified Allergy, Unknown, 08/29/06) Home Medications Acetaminophen/Diphenhydramine 1 Ea Tab, 1-2 TAB PO HS PRN, (Reported) NEEDED FOR PAIN/SLEEP Alprazolam 0.25 Mg Tablet, 0.25 MG PO DAILY, (Reported) Amlodipine Besylate 5 Mg Tablet, 5 MG PO DAILY, (Reported) Aspirin 81 Mg Tablet.dr, 81 MG PO DAILY, (Reported) Biotin 1,000 Mcg Tablet, 1,000 MCG PO DAILY, (Reported) Cefuroxime Axetil 500 Mg Tablet, 500 MG PO BID Prescribed by: KIESHA CADE on 04/17/191947 Dexamethasone 4 Mg Tablet, 4 MG PO DAILY Prescribed by: DANIEL CHESTER on 11/24/16942 Fluticasone Propionate 16 Gm Naspr, 1 SPRAY NSEACH BID PRN, (Reported) NEEDED FOR ALLERGY SYMPTOMS Gabapentin 600 Mg Tablet, 600 MG PO Q6H, (Reported) Meclizine HCl 25 Mg Tablet, 25 MG PO Q4H PRN for DIZZINESS Prescribed by: DANIEL CHESTER on 11/24/16 09 Mv,Ca,Min/Iron Fum/Fa/Lyco/Lut 1 Each Tablet, 1 TAB PO DAILY, (Reported) Tramadol HCl 50 Mg Tablet, 50-100 MG PO Q6H, (Reported) [Dairy Digestive Supp] , 2 TAB PO TID PRN, (Reported) EQUATE DAIRY DIGESTIVE SUPPLEMENT TAKES NEEDED BEFORE EATING CHEESE [Sinus & Allergy] , 2 TAB PO BID PRN, (Reported) NEEDED FOR CONGESTION EQUATE SINUS AND ALLERGY Patient Home Medication List Home Medication List Reviewed: Yes Review of Systems Review of Systems Constitutional: see HPI EENTM: No Symptoms Reported Respiratory: No Symptoms Reported Cardiovascular: No Symptoms Reported Gastrointestinal: See HPI, Abdominal Pain, Constipated; Denies Diarrhea, Denies Nausea Genitourinary: No Symptoms Reported Musculoskeletal: no symptoms reported Skin: no symptoms reported Psychiatric/Neurological: No Symptoms Reported Past [place] Hx Patient Social History Recent Foreign Travel: No Contact w/Someone Who Travel: No Recent Hopitalizations: No Immunizations Up To Date Tetanus Booster (TDap): More than 5yrs PED Vaccines UTD: Yes Date of Pneumonia Vaccine: Mar 30, 2008 Date of Influenza Vaccine: Apr 13, 2018 Seasonal Allergies Seasonal Allergies: No Past Medical History Surgeries: Yes Respiratory: No Cardiac: Yes Neurological: Yes Reproductive Disorders: No Female Reproductive Disorders: Denies [employer] History: Menopausal Sexually Transmitted Disease: No HIV/AIDS: No Gastrointestinal: Yes Chronic Constipation Musculoskeletal: Yes Degenerate Disk Disease, Chronic Back Pain Endocrine: No Hypothyroidsim HEENT: Yes (vision changes age - patient states ) Loss of Vision: Bilateral Hearing Impairment: Denies Cancer: No Psychosocial: Yes Anxiety Integumentary: No Blood Disorders: No Adverse Reaction/Blood Tranf: No Family Medical History Alzheimer's disease Arthritis Asthma Colon cancer Completed stroke Dementia Hypertension Myocardial infarction Visual disorder Physical Exam Vital Signs Vital Signs - First Documented 04/17/19 19:07 Temp 37.5 Pulse 64 Resp 18 B/P (MAP) 143/73 (96) Capillary Refill : Height/Weight/BMI Height: 5'5.00" Weight: 140lbs. 0.0oz. 63.329388vy; 23.6 BMI Method:Stated General Appearance: WD/WN, no apparent distress Respiratory: no respiratory distress, no accessory muscle use Gastrointestinal: normal bowel sounds, soft, tenderness Extremities: normal range of motion, non-tender Neurologic/Psychiatric: alert, normal mood/affect, oriented x 3 Skin: normal color, warm/dry Progress/Results/Core Measures Results/Orders Lab Results Laboratory Tests Test 04/17/19 19:00 Range/Units White Blood Count 8.2 4.3-11.0 10^3/uL Red Blood Count 3.45 L 4.35-5.85 10^6/uL Hemoglobin 10.9 L 11.5-16.0 G/DL Hematocrit 33 L 35-52 % Mean Corpuscular Volume 95 80-99 FL Mean Corpuscular Hemoglobin 32 25-34 PG Mean Corpuscular Hemoglobin Concent 33 32-36 G/DL Red Cell Distribution Width 14.1 10.0-14.5 % Platelet Count 201 130-400 10^3/uL Mean Platelet Volume 10.6 H 7.4-10.4 FL Neutrophils (%) (Auto) 63 42-75 % Lymphocytes (%) (Auto) 19 12-44 % Monocytes (%) (Auto) 16 H 0-12 % Eosinophils (%) (Auto) 1 0-10 % Basophils (%) (Auto) 1 0-10 % Neutrophils # (Auto) 5.1 1.8-7.8 X 10^3 Lymphocytes # (Auto) 1.6 1.0-4.0 X 10^3 Monocytes # (Auto) 1.3 H 0.0-1.0 X 10^3 Eosinophils # (Auto) 0.1 0.0-0.3 10^3/uL Basophils # (Auto) 0.1 0.0-0.1 10^3/uL Prothrombin Time 13.9 12.2-14.7 SEC INR Comment 1.0 0.8-1.4 Urine Color YELLOW Urine Clarity CLEAR Urine pH 5 5-9 Urine Specific [place] 1.015 L 1.016-1.022 Urine Protein 3+ H NEGATIVE Urine Glucose (UA) NEGATIVE NEGATIVE Urine Ketones NEGATIVE NEGATIVE Urine Nitrite NEGATIVE NEGATIVE Urine Bilirubin NEGATIVE NEGATIVE Urine Urobilinogen NORMAL NORMAL MG/DL Urine Leukocyte Esterase 3+ H NEGATIVE Urine RBC (Auto) 3+ H NEGATIVE Urine RBC 2-5 H /HPF Urine WBC >100 H /HPF Urine Squamous Epithelial Cells 2-5 /HPF Urine Crystals NONE /LPF Urine Bacteria LARGE H /HPF Urine Casts NONE /LPF Urine Mucus SMALL H /LPF Urine Culture Indicated YES Sodium Level 141 135-145 MMOL/L Potassium Level 3.6 3.6-5.0 MMOL/L Chloride Level 105 98-107 MMOL/L Carbon Dioxide Level 24 21-32 MMOL/L Anion Gap 12 5-14 MMOL/L Blood Urea Nitrogen 22 H 7-18 MG/DL Creatinine 1.37 H 0.60-1.30 MG/DL Estimat Glomerular Filtration Rate 37 BUN/Creatinine Ratio 16 Glucose Level 122 H 70-105 MG/DL Calcium Level 9.0 8.5-10.1 MG/DL Corrected Calcium 9.2 8.5-10.1 MG/DL Total Bilirubin 0.3 0.1-1.0 MG/DL Aspartate Amino Transf (AST/SGOT) 30 5-34 U/L Alanine Aminotransferase (ALT/SGPT) 20 0-55 U/L Alkaline Phosphatase 67 40-136 U/L Total Protein 6.8 6.4-8.2 GM/DL Albumin 3.7 3.2-4.5 GM/DL My Orders Orders - KIESHA CADE APRN Cbc With Automated Diff (04/17/19 18:56) Comprehensive Metabolic Panel (04/17/19 18:56) Ed Iv/Invasive Line Start (04/17/19 18:56) Protime With Inr (04/17/19 18:56) Ua Culture If Indicated (04/17/19 18:56) Ct Abd/Pelvis Wo(Kidney Stone) (04/17/19 18:56) Urine Culture (04/17/19 19:00) Ns Iv 1000 Ml (Sodium Chloride 0.9%) (04/17/19 20:00) Ceftriaxone For Iv Use (Rocephin For I (04/17/19 20:00) Medications Given in ED Current Medications Medications Dose Ordered Sig/Deborah Route Start Time Stop Time Status Last Admin Dose Admin Ceftriaxone Sodium 1000 mg/ Sterile Water 10 ml @ 200 mls/hr ONCE ONCE IV 04/17/19 20:00 04/17/19 20:02 DC 04/17/19 20:06 200 MLS/HR Vital Signs/I&O 04/17/19 19:07 Temp 37.5 Pulse 64 Resp 18 B/P (MAP) 143/73 (96) Diagnostic Imaging Diagonstic Imaging: Xray Comments NAME: CARIN BECK [facility] REC#: [id number] PT STATUS: REG ER : 1940 PHYSICIAN: KIESHA CADE APRN ADMIT DATE: 10/19/19/ER Draft Date of Exam:04/17/19 CT ABD/PELVIS WO(KIDNEY STONE) Clinical Indication: Patient with left groin pain radiating to left flank with nausea. Patient has history of gallbladder resection and hysterectomy. Exam: CT scan of the abdomen and pelvis performed without IV or enteric contrast. Coronal and sagittal reformatted images are created. Auto Exposure Controls were utilized during the CT exam to meet ALARA standards for radiation dose reduction. Comparison: CT scan of the abdomen and pelvis performed without and with IV contrast dated 01/16/2011. Findings: There is mild dependent atelectasis or scarring involving both lung bases. There is posterior fusion hardware of the lower lumbar spine. There is degenerative spurs of both hips and lumbar spine region. Cholecystectomy changes are seen. The liver, spleen, pancreas, and adrenal glands are unremarkable. There is mild fat stranding adjacent to the left kidney of unknown etiology. There is no renal thickening seen. There is interval development of a 1 to 2 mm calcification in the region of the mid left ureter seen on series 2, image 71. The other images show that this calcification appears to be outside of the ureter than inside the ureter. There is no other concern for urinary tract stone. There is diverticulosis involving the sigmoid colon with no CT evidence of diverticulitis. There is no intestinal obstruction. There is no intra-abdominal free air or free fluid. There is small amount of extraperitoneal pelvic air noted adjacent to the bladder. This air is closely adjacent to the wall of the bladder and emphysematous cystitis may be a consideration. There is no significant fat stranding adjacent to the bladder or fluid adjacent to the bladder. The bladder is partially fluid-filled. The extra-abdominal and extrapelvic soft tissue structures are unremarkable. IMPRESSION: 1.: There is interval development of a small amount of extraperitoneal pelvic air is seen adjacent to the bladder. It is possible that some of this air is within the wall of the bladder. Etiology such as emphysematous cystitis may be considered if patient has history of UTI. 2: There is fat stranding adjacent to the left kidney of unknown etiology. Left pyelonephritis should be excluded. 3: The remainder of the abdomen and pelvis shows no other acute finding. Results of this report regarding extraperitoneal air was discussed with Kiesha Cade APRN via the telephone on 04/17/2019 at 2035. Dictated on workstation # [id number] Dict: 04/17/192036 Trans: 04/17/192046 [facility] [id number] Interpreted by: JEANNA DELEON MD Electronically signed by: Departure Communication (Admissions) 2057-Dr carreno has reviewed the CT images and the patient. She is pain-free despite no administration of pain medication here. She is received 500 mL of normal saline and [address] Carreno agrees that she can go home, follow up outpatient with him and primary care. I also spoke with Dr. Hernandez, she agrees with this plan. 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 Decision time for Depature: 19:48 Referrals: HERSON CARRENO JACQUELINE S DO (PCP/Family) Primary Care Physician Patient Instructions: Urinary Tract Infection, Adult (DC) Add. Discharge Instructions: All discharge instructions reviewed with patient and/or family. Voiced understanding. 1. Take antibiotics as directed starting tomorrow 2. Return to ER for any concerns in the meantime such as nausea vomiting fevers or overall feeling worse. Follow-up with Dr. Hernandez next week for recheck. Scripts Cefuroxime Axetil (Cefuroxime) 500 Mg Tablet 500 MG PO BID, #10 TAB Prov: KIESHA CADE APRN 04/17/19 Copy Copies To 1: HERSON CARRENO DO; YADIEL HERNANDEZ PETER J APRN Apr 17, 2019 18:59
[2019-04-17 19:10] LABS: BASOPHILS # (AUTO) 0.1 10^3/uL (0.0-0.1); BASOPHILS % (AUTO) 1 % (0-10); EOSINOPHILS # (AUTO) 0.1 10^3/uL (0.0-0.3); EOSINOPHILS % (AUTO) 1 % (0-10); HEMATOCRIT 33 % (35-52); HEMOGLOBIN 10.9 G/DL (11.5-16.0); LYMPHOCYTES # (AUTO) 1.6 X 10^3 (1.0-4.0); LYMPHOCYTES % (AUTO) 19 % (12-44); MEAN CORPUSCULAR HEMOGLOBIN 32 PG (25-34); MEAN CORPUSCULAR HGB CONC 33 G/DL (32-36); MEAN CORPUSCULAR VOLUME 95 FL (80-99); MEAN PLATELET VOLUME 10.6 FL (7.4-10.4); MONOCYTES # (AUTO) 1.3 X 10^3 (0.0-1.0); MONOCYTES % (AUTO) 16 % (0-12); NEUTROPHILS # (AUTO) 5.1 X 10^3 (1.8-7.8); NEUTROPHILS % (AUTO) 63 % (42-75); PLATELET COUNT 201 10^3/uL (130-400); RED CELL DISTRIBUTION WIDTH 14.1 % (10.0-14.5); WHITE BLOOD COUNT 8.2 10^3/uL (4.3-11.0)
[2019-04-17 19:22] LABS: PROTHROMBIN TIME PATIENT 13.9 SEC (12.2-14.7)
[2019-04-17 19:23] LABS: BILIRUBIN,URINE NEGATIVE (NEGATIVE); CLARITY,URINE CLEAR; COLOR,URINE YELLOW; GLUCOSE, URINE (UA) NEGATIVE (NEGATIVE); KETONES,URINE NEGATIVE (NEGATIVE); LEUKOCYTE ESTERASE ,URINE 3+ (NEGATIVE); NITRITE,URINE NEGATIVE (NEGATIVE); PH,URINE 5 (5-9); PROTEIN,URINE 3+ (NEGATIVE)
[2019-04-17 19:30] LABS: ALBUMIN 3.7 GM/DL (3.2-4.5); BILIRUBIN,TOTAL 0.3 MG/DL (0.1-1.0); CREATININE SERUM 1.37 MG/DL (0.60-1.30); POTASSIUM 3.6 MMOL/L (3.6-5.0); TOTAL PROTEIN 6.8 GM/DL (6.4-8.2)
[2019-04-17 19:31] LABS: BACTERIA,URINE LARGE /HPF; WBC,URINE >100 /HPF
[2019-04-17] MEDS ORDERED: CEFU500T63 PO (19:48)
[2019-04-17] MEDS ORDERED: cefTRIAXone FOR IV USE 1,000 MG in WATER (STERILE) FOR INJECTION 10 ML IV ONE (20:00)
[2019-04-17] MEDS ORDERED: NS IV 1000 ML 1,000 ML IV SCH (20:00)
--- NOTE | 2019-04-17 20:48 | Diagnostic Imaging Report ---
Clinical Indication: Patient with left groin pain radiating to left flank with nausea. Patient has history of gallbladder resection and hysterectomy. Exam: CT scan of the abdomen and pelvis performed without IV or enteric contrast. Coronal and sagittal reformatted images are created. Auto Exposure Controls were utilized during the CT exam to meet ALARA standards for radiation dose reduction. Comparison: CT scan of the abdomen and pelvis performed without and with IV contrast dated 01/16/2011. Findings: There is mild dependent atelectasis or scarring involving both lung bases. There is posterior fusion hardware of the lower lumbar spine. There is degenerative spurs of both hips and lumbar spine region. Cholecystectomy changes are seen. The liver, spleen, pancreas, and adrenal glands are unremarkable. There is mild fat stranding adjacent to the left kidney of unknown etiology. There is no renal thickening seen. There is interval development of a 1 to 2 mm calcification in the region of the mid left ureter seen on series 2, image 71. The other images show that this calcification appears to be outside of the ureter than inside the ureter. There is no other concern for urinary tract stone. There is diverticulosis involving the sigmoid colon with no CT evidence of diverticulitis. There is no intestinal obstruction. There is no intra-abdominal free air or free fluid. There is small amount of extraperitoneal pelvic air noted adjacent to the bladder. This air is closely adjacent to the wall of the bladder and emphysematous cystitis may be a consideration. There is no significant fat stranding adjacent to the bladder or fluid adjacent to the bladder. The bladder is partially fluid-filled. The extra-abdominal and extrapelvic soft tissue structures are unremarkable. IMPRESSION: 1.: There is interval development of a small amount of extraperitoneal pelvic air is seen adjacent to the bladder. It is possible that some of this air is within the wall of the bladder. Etiology such as emphysematous cystitis may be considered if patient has history of UTI. 2: There is fat stranding adjacent to the left kidney of unknown etiology. Left pyelonephritis should be excluded. 3: The remainder of the abdomen and pelvis shows no other acute finding. Results of this report regarding extraperitoneal air was discussed with Gilmar Cade APRN via the telephone on 04/17/2019 at 2035. Dictated by: Dictated on workstation # [id number]
[2019-04-17 21:02] VITALS: BP 143/73
--- NOTE | 2019-04-17 21:58 | Consultation - Surgery ---
AMBIKA BENZ,MED STUDENT 04/17/19 2158: History of Present Illness History of Present Illness Patient Consulted On(karina/time) 04/17/19 21:52 Date Seen by Provider: Apr 17, 2019 Time Seen by Provider: 20:45 History of Present Illness Surgical consult for free air in pelvis and possible enterovesicular fistula HPI per ED:To ER per private vehicle from home with reports of left-sided lower abdominal pain ongoing for several weeks. She's been trying a different medication every 2 weeks to help with this, she's been treating this to lumbar spinal issues as she has a spinal stimulator in place. She has no urinary frequency or burning, chronic constipation. No fevers or chills or nausea but she has slept nearly all day today after sleeping all night last night. This gen eral fatigue concerns or because it is unusual. Mrs. Car is a 78 yo female that presents to the ED with a month history of L LQ abdominal pain. She states she has felt increasingly fatigued the last 2 weeks and not like herself. She has been unable to do her normal activities due to fatigue. She believes the pain may be related to her spinal stimulator she had placed in September 2018. Since the placement she has had continued back and bilateral leg pain. She denies any fevers, chills, but does complain on nausea but no vomiting. No changes to bowel habits or weight. She denies dysuria, pneumaturia, increased frequency, or incontinence but has noticed some urgency and hesitancy with urination. Allergies and Home Medications Allergies Coded Allergies: Milk Containing Products (Unverified Allergy, Unknown, 04/19/13) FROM UNCODED LIST erythromycin base (Unverified Allergy, Unknown, 08/29/06) Home Medications Acetaminophen/Diphenhydramine 1 Ea Tab, 1-2 TAB PO HS PRN, (Reported) NEEDED FOR PAIN/SLEEP Alprazolam 0.25 Mg Tablet, 0.25 MG PO DAILY, (Reported) Amlodipine Besylate 5 Mg Tablet, 5 MG PO DAILY, (Reported) Aspirin 81 Mg Tablet.dr, 81 MG PO DAILY, (Reported) Biotin 1,000 Mcg Tablet, 1,000 MCG PO DAILY, (Reported) Cefuroxime Axetil 500 Mg Tablet, 500 MG PO BID Prescribed by: KIESHA CADE on 04/17/191947 Dexamethasone 4 Mg Tablet, 4 MG PO DAILY Prescribed by: DANIEL CHESTER on 11/24/16942 Fluticasone Propionate 16 Gm Naspr, 1 SPRAY NSEACH BID PRN, (Reported) NEEDED FOR ALLERGY SYMPTOMS Gabapentin 600 Mg Tablet, 600 MG PO Q6H, (Reported) Meclizine HCl 25 Mg Tablet, 25 MG PO Q4H PRN for DIZZINESS Prescribed by: DANIEL CHESTER on 11/24/16942 Mv,Ca,Min/Iron Fum/Fa/Lyco/Lut 1 Each Tablet, 1 TAB PO DAILY, (Reported) Tramadol HCl 50 Mg Tablet, 50-100 MG PO Q6H, (Reported) [Dairy Digestive Supp] , 2 TAB PO TID PRN, (Reported) EQUATE DAIRY DIGESTIVE SUPPLEMENT TAKES NEEDED BEFORE EATING CHEESE [Sinus & Allergy] , 2 TAB PO BID PRN, (Reported) NEEDED FOR CONGESTION EQUATE SINUS AND ALLERGY Patient Home Medication List Home Medication List Reviewed: Yes Past Knkvvgp-Nsrgif-Oekada Hx Patient Social History Alcohol Use: Denies Use Smoking Status: Never a Smoker Recent Foreign Travel: No Contact w/Someone Who Travel: No Recent Infectious Disease Expo: No Recent Hopitalizations: No Immunizations Up To Date Tetanus Booster (TDap): More than 5yrs PED Vaccines UTD: Yes Date of Pneumonia Vaccine: Mar 30, 2008 Date of Influenza Vaccine: Apr 13, 2018 Seasonal Allergies Seasonal Allergies: No Surgeries History of Surgeries: Yes (bladder sling 1996) Surgeries: Cystectomy, 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, Orthopedic (L shoulder, spinal fusion, laminectomy, spinal stimulator placement), Tonsillectomy Respiratory History of Respiratory Disorde: No Cardiovascular History of Cardiac Disorders: Yes Cardiac Disorders: High Cholesterol, Hypertension Neurological History of Neurological Disord: No Reproductive System Hx Reproductive Disorders: No Sexually Transmitted Disease: No HIV/AIDS: No Female Reproductive Disorders: 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, 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 Genitourinary History of Genitourinary Disor: No Gastrointestinal History of Gastrointestinal Di: Yes Gastrointestinal Disorders: Chronic Constipation Musculoskeletal History of Musculoskeletal Dis: Yes Musculoskeletal Disorders: Degenerate Disk Disease, Chronic Back Pain Endocrine History of Endocrine Disorders: No HEENT History of HEENT Disorders: Yes (vision changes age - patient states ) Loss of Vision: Bilateral Hearing Impairment: Denies Cancer History of Cancer: No Psychosocial History of Psychiatric Problem: Yes Behavioral Health Disorders: Anxiety Integumentary History of Skin or Integumenta: No Blood Transfusions History of Blood Disorders: No Adverse Reaction to a Blood Tr: No Family Medical History Significant Family History: Cancer (ovarian, mother), Lung Disease (father), Other Conditions/Hx (lewy body dementia brother, alzheimers father) Family Medial History: Alzheimer's disease Arthritis Asthma Colon cancer Completed stroke Dementia Hypertension Myocardial infarction Visual disorder Review of Systems-General Constitutional: No chills; dizziness; No fever, No weakness; other (fatigue) EENTM: No blurred vision, No double vision Respiratory: No cough; short of breath (chronic) Gastrointestinal: abdominal pain (LLQ), constipation (chronic); No diarrhea, No melena; nausea; No vomiting Genitourinary: No dysuria, No frequency, No hematuria; hesitancy; No incontinence; other (urgency, denies pneumaturia) Musculoskeletal: back pain (chronic), other (bilateral leg pain chronic) Skin: No pruritus, No rash Psychiatric/Neurological: Anxiety; Denies Headache, Denies Weakness Physical Exam-General Problems Physical Exam Vital Signs Vital Signs - First Documented 04/17/19 04/17/19 19:07 21:02 Temp 37.5 Pulse 64 Resp 18 B/P (MAP) 143/73 (96) Pulse Ox 99 Capillary Refill : Less Than 3 Seconds General Appearance: WD/WN, no apparent distress Eyes: Bilateral Eye PERRL, Bilateral Eye EOMI HEENT: PERRL/EOMI, other (mucous membranes moist) Neck: non-tender; No lymphadenopathy (R), No lymphadenopathy (L) Respiratory: chest non-tender, lungs clear, normal breath sounds, no respiratory distress Cardiovascular: regular rate, rhythm, no murmur Peripheral Pulses: 2+ Radial Pulses (R), 2+ Radial Pulses (L) Gastrointestinal: normal bowel sounds, non tender, soft; No distended, No guarding, No rebound Extremities: no pedal edema, no calf tenderness Neurologic/Psychiatric: alert, oriented x 3 Skin: normal color, warm/dry Data Review Labs Laboratory Tests 04/17/19 19:00: White Blood Count 8.2, Red Blood Count 3.45L, Hemoglobin 10.9L, Hematocrit 33L, Mean Corpuscular Volume 95, Mean Corpuscular Hemoglobin 32, Mean Corpuscular Hemoglobin Concent 33, Red Cell Distribution Width 14.1, Platelet Count 201, Mean Platelet Volume 10.6H, Neutrophils (%) (Auto) 63, Lymphocytes (%) (Auto) 19, Monocytes (%) (Auto) 16H, Eosinophils (%) (Auto) 1, Basophils (%) (Auto) 1, Neutrophils # (Auto) 5.1, Lymphocytes # (Auto) 1.6, Monocytes # (Auto) 1.3H, Eosinophils # (Auto) 0.1, Basophils # (Auto) 0.1, Prothrombin Time 13.9, INR Comment 1.0, Urine Color YELLOW, Urine Clarity CLEAR, Urine pH 5, Urine Specific [place] 1.015L, Urine Protein 3+H, Urine Glucose (UA) NEGATIVE, Urine Ketones NEGATIVE, Urine Nitrite NEGATIVE, Urine Bilirubin NEGATIVE, Urine Urobilinogen NORMAL, Urine Leukocyte Esterase 3+H, Urine RBC (Auto) 3+H, Urine RBC 2-5H, Urine WBC >100H, Urine Squamous Epithelial Cells 2-5, Urine Crystals NONE, Urine Bacteria LARGEH, Urine Casts NONE, Urine Mucus SMALLH, Urine Culture Indicated YES, Sodium Level 141, Potassium Level 3.6, Chloride Level 105, Carbon Dioxide Level 24, Anion Gap 12, Blood Urea Nitrogen 22H, Creatinine 1.37H, Estimat Glomerular Filtration Rate 37, BUN/Creatinine Ratio 16, Glucose Level 122H, Calcium Level 9.0, Corrected Calcium 9.2, Total Bilirubin 0.3, Aspartate Amino Transf (AST/SGOT) 30, Alanine Aminotransferase (ALT/SGPT) 20, Alkaline Phosphatase 67, Total Protein 6.8, Albumin 3.7 Assessment/Plan Assessment/Plan Assessment/Plan Pelvic Free Air 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 Discussed with patient to return if symptoms worsen. Conservative management, no surgical intervention at this time. Schedule colonoscopy outpatient Follow up with Dr. Carreno in clinic next week. Consider urology follow-up, Dr. Toure did previous bladder surgery Abx for UTI HERSON CARRENO DO 04/17/19 2223: History of Present Illness History of Present Illness Time Seen by Provider: 21:42 History of Present Illness Pt states she mainly came in "because I don't feel right, not the same me". Allergies and Home Medications Allergies Coded Allergies: Milk Containing Products (Unverified Allergy, Unknown, 04/19/13) FROM UNCODED LIST erythromycin base (Unverified Allergy, Unknown, 08/29/06) Home Medications Acetaminophen/Diphenhydramine 1 Ea Tab, 1-2 TAB PO HS PRN, (Reported) NEEDED FOR PAIN/SLEEP Alprazolam 0.25 Mg Tablet, 0.25 MG PO DAILY, (Reported) Amlodipine Besylate 5 Mg Tablet, 5 MG PO DAILY, (Reported) Aspirin 81 Mg Tablet.dr, 81 MG PO DAILY, (Reported) Biotin 1,000 Mcg Tablet, 1,000 MCG PO DAILY, (Reported) Cefuroxime Axetil 500 Mg Tablet, 500 MG PO BID Prescribed by: KIESHA CADE on 04/17/191947 Dexamethasone 4 Mg Tablet, 4 MG PO DAILY Prescribed by: DNAIEL CHESTER on 11/24/16942 Fluticasone Propionate 16 Gm Naspr, 1 SPRAY NSEACH BID PRN, (Reported) NEEDED FOR ALLERGY SYMPTOMS Gabapentin 600 Mg Tablet, 600 MG PO Q6H, (Reported) Meclizine HCl 25 Mg Tablet, 25 MG PO Q4H PRN for DIZZINESS Prescribed by: DANIEL CHESTER on 11/24/16 09 Mv,Ca,Min/Iron Fum/Fa/Lyco/Lut 1 Each Tablet, 1 TAB PO DAILY, (Reported) Tramadol HCl 50 Mg Tablet, 50-100 MG PO Q6H, (Reported) [Dairy Digestive Supp] , 2 TAB PO TID PRN, (Reported) EQUATE DAIRY DIGESTIVE SUPPLEMENT TAKES NEEDED BEFORE EATING CHEESE [Sinus & Allergy] , 2 TAB PO BID PRN, (Reported) NEEDED FOR CONGESTION EQUATE SINUS AND ALLERGY Past Kpzdwti-Ujutgi-Qvuwcj Hx Patient Social History Recreational Drug Use: No Surgeries History of Surgeries: Yes (bladder sling 1996) Respiratory History of Respiratory Disorde: No Family Medical History Family Medial History: Alzheimer's disease Arthritis Asthma Colon cancer Completed stroke Dementia Hypertension Myocardial infarction Visual disorder Physical Exam-General Problems Physical Exam Gastrointestinal: soft, other (tenderness to palpation suprapubically, "feels like I have a full bladder") Data Review Radiology CT ABD/PELVIS WO(KIDNEY STONE) Clinical Indication: Patient with left groin pain radiating to left flank with nausea. Patient has history of gallbladder resection and hysterectomy. Exam: CT scan of the abdomen and pelvis performed without IV or enteric contrast. Coronal and sagittal reformatted images are created. Auto Exposure Controls were utilized during the CT exam to meet ALARA standards for radiation dose reduction. Comparison: CT scan of the abdomen and pelvis performed without and with IV contrast dated 01/16/2011. Findings: There is mild dependent atelectasis or scarring involving both lung bases. There is posterior fusion hardware of the lower lumbar spine. There is degenerative spurs of both hips and lumbar spine region. Cholecystectomy changes are seen. The liver, spleen, pancreas, and adrenal glands are unremarkable. There is mild fat stranding adjacent to the left kidney of unknown etiology. There is no renal thickening seen. There is interval development of a 1 to 2 mm calcification in the region of the mid left ureter seen on series 2, image 71. The other images show that this calcification appears to be outside of the ureter than inside the ureter. There is no other concern for urinary tract stone. There is diverticulosis involving the sigmoid colon with no CT evidence of diverticulitis. There is no intestinal obstruction. There is no intra-abdominal free air or free fluid. There is small amount of extraperitoneal pelvic air noted adjacent to the bladder. This air is closely adjacent to the wall of the bladder and emphysematous cystitis may be a consideration. There is no significant fat stranding adjacent to the bladder or fluid adjacent to the bladder. The bladder is partially fluid-filled. The extra-abdominal and extrapelvic soft tissue structures are unremarkable. IMPRESSION: 1.: There is interval development of a small amount of extraperitoneal pelvic air is seen adjacent to the bladder. It is possible that some of this air is within the wall of the bladder. Etiology such as emphysematous cystitis may be considered if patient has history of UTI. 2: There is fat stranding adjacent to the left kidney of unknown etiology. Left pyelonephritis should be excluded. 3: The remainder of the abdomen and pelvis shows no other acute finding. Results of this report regarding extraperitoneal air was discussed with Kiesha Cade APRN via the telephone on 04/17/2019 at 2035. Dictated on workstation # [id number] Assessment/Plan Assessment/Plan Assessment/Plan I am unsure where the free air is coming from, but pt has no peritoneal signs and would like to go home. ER already spoke to her Primary Physician and she is reliable enough to follow up and get the work up done. Supervisory-Addendum Brief Verification & Attestation Participated in pt care: history, MDM, physical Personally performed: exam, history, MDM Care discussed with: Medical Student Procedures: n/a Verification and Attestation of Medical Student E/M Service A medical student performed and documented this service in my presence. I reviewed and verified all information documented by the medical student and made modifications to such information, when appropriate. I personally performed the physical exam and medical decision making. Herson Carreno, Apr 17, 2019,22:23 AMBIKA BENZ,MED STUDENT Apr 17, 2019 21:58 HERSON CARRENO DO Apr 17, 2019 22:23
[2019-04-17 22:01] VITALS: BP 143/73
== END 2019-04-17 22:05 | disposition home or self-care (01) ==
LOC: EDUNIT# 18:46 → ER 18:47
DX: N39.0 Urinary tract infection, site not specified (principal); R19.09 Other intra-abdominal and pelvic swelling, mass and lump; E03.9 Hypothyroidism, unspecified; F41.9 Anxiety disorder, unspecified; Z88.1 Allergy status to other antibiotic agents; Z79.82 Long term (current) use of aspirin; Z79.51 Long term (current) use of inhaled steroids; Z82.49 Family history of ischemic heart disease and other diseases of the circulatory system; Z80.0 Family history of malignant neoplasm of digestive organs
CPT/HCPCS: 36415; 74176; 80053; 81000; 85025; 85610; 87077; 87088; 87186

== ENCOUNTER → 2019-06-07 | Outpatient (CLI) | payer MEDICARE, OTHER ==
[~2019-06-07] MED LIST changes: +CEFU500T63 PO; -TRAM50TA2 PO; +TRM50T PO
--- NOTE | 2019-06-07 13:22 | Diagnostic Imaging Report ---
INDICATION: Fall. Pain. COMPARISON: None. FINDINGS: Three views of the left knee joint demonstrate no acute fracture or dislocation. No focal osseous lesions are seen. Note is made of chondrocalcinosis. No significant joint effusion is seen. The surrounding soft tissue structures are unremarkable. There are no radiopaque foreign bodies. IMPRESSION: 1. No acute fractures or dislocations of the left knee joint. 2. Chondrocalcinosis. Findings may be degenerative, but can also be seen with underlying CPPD. Dictated by: Dictated on workstation # [id number]
--- NOTE | 2019-06-07 13:26 | Diagnostic Imaging Report ---
INDICATION: Pain status post possible injury. COMPARISON: None. FINDINGS: AP view of the pelvis and two dedicated radiographic views of the left hip were obtained. There is no fracture, dislocation, bone destruction, or radiopaque foreign body. The visualized pelvic osseous structures and the SI joints demonstrate no acute fracture or dislocation. There is no bone destruction or radiopaque foreign body. The surrounding soft tissue structures are unremarkable. Postsurgical changes of previous lumbar spine fusion are noted. Neurostimulator device is also partially visualized in the right lower abdominal quadrant. IMPRESSION: 1. No acute fracture or dislocation in the pelvis or left hip. Dictated by: Dictated on workstation # [id number]
== END ==
LOC: RAD 12:25
PROVIDERS: ATTEND Family Medicine
DX: M11.262 Other chondrocalcinosis, left knee (principal); M25.552 Pain in left hip; R10.2 Pelvic and perineal pain; W19.XXXA Unspecified fall, initial encounter
CPT/HCPCS: 73562

== ENCOUNTER → 2019-08-02 | Outpatient (CLI) | payer MEDICARE, OTHER ==
--- NOTE | 2019-08-02 15:30 | Diagnostic Imaging Report ---
PROCEDURE: MRI lumbar spine. TECHNIQUE: Multiplanar, multisequence MRI of the lumbar spine was performed without contrast. INDICATION: Chronic low back pain and prior lumbar spine surgeries. COMPARISON: Correlation is made with prior MRI of the lumbar spine from 02/16/2018. FINDINGS: There is straightening of the normal lumbar lordotic curvature. Postoperative changes of posterior instrumented fusion with spinal fixation rods and pedicle screws transfixing the L3-L4 level is again noted. Hardware does produce moderate artifact. The vertebral body heights are maintained. No acute compression fracture or geographic marrow lesion is seen. There is severe degenerative disc disease L3-L4, L4-L5 and L5-S1 levels with marked disc space narrowing and desiccation as well as endplate osteophyte formation. This is similar to prior exam. Conus is unremarkable at the L1 level. T12-L1: Central canal is widely patent. Neural foramina are patent. L1-2: Central canal is widely patent. Neural foramina appear patent. L2-L3: Broad-based disc/osteophyte complex and facet changes result in central canal stenosis. AP dimensions of the canal are 9 mm. There is bilateral lateral recess stenosis. Mild bilateral neural foraminal stenosis is seen. L3-L4: Central canal is widely patent. No significant neural foraminal stenosis is seen. L4-L5: Central canal is widely patent. There is bilateral lateral recess stenosis. There also appears to be moderate bilateral neural foraminal stenosis. L5-S1: Central canal is widely patent. Bilateral lateral recess stenosis is seen. There is significant left and mild right neural foraminal stenosis. Paraspinous tissues are unremarkable. IMPRESSION: Postoperative changes of posterior instrumented fusion L3-L4 level. There is multilevel lumbar spondylosis with multilevel central canal and neural foraminal narrowing described level by level above. Overall appearance is very similar to examination from 02/16/2018. No acute compression fracture is detected. Dictated by: Dictated on workstation # [id number]
== END ==
LOC: RAD 13:57
PROVIDERS: ATTEND Pain Medicine Interventional Pain Medicine
DX: M48.07 Spinal stenosis, lumbosacral region (principal); M47.26 Other spondylosis with radiculopathy, lumbar region; M51.17 Intervertebral disc disorders with radiculopathy, lumbosacral region; M25.78 Osteophyte, vertebrae; Z98.1 Arthrodesis status
CPT/HCPCS: 72148

== ENCOUNTER 2020-02-08 10:23 | Emergency (ER) | payer MEDICARE, OTHER ==
[~2020-02-08] VITALS: Ht 165.1 cm; Wt 59.0 kg
[~2020-02-08 10:23] MED LIST changes: -MECL-106 PO; +MECL-149 PO
--- NOTE | 2020-02-08 10:46 | ED Upper Extremity ---
General Chief Complaint: Trauma-Non Activation Stated Complaint: LEFT SHOULDER PAIN;FALL INJURY Source: patient History of Present Illness Date Seen by Provider: Feb 08, 2020 Time Seen by Provider: 10:44 Initial Comments 79-year-old female presents with pain in her left shoulder and left upper arm. Patient has bruising over that anterior and frontal aspect of her left shoulder and upper arm. Patient reports that she fell sometime last week but cannot read or what day. Reports that his not gotten any better and she's getting some pain with movement in the right upper arm and wanted it evaluated. Patient has not followed with her primary care or other physician. Allergies and Home Medications Allergies Coded Allergies: Milk Containing Products (Unverified Allergy, Unknown, 04/19/13) FROM UNCODED LIST erythromycin base (Unverified Allergy, Unknown, 08/29/06) Home Medications Acetaminophen/Diphenhydramine 1 Ea Tab, 1-2 TAB PO HS PRN, (Reported) NEEDED FOR PAIN/SLEEP Alprazolam 0.25 Mg Tablet, 0.25 MG PO DAILY, (Reported) Amlodipine Besylate 5 Mg Tablet, 5 MG PO DAILY, (Reported) Aspirin 81 Mg Tablet.dr, 81 MG PO DAILY, (Reported) Biotin 1,000 Mcg Tablet, 1,000 MCG PO DAILY, (Reported) Cefuroxime Axetil 500 Mg Tablet, 500 MG PO BID Prescribed by: KIESHA JOYNER on 04/17/191947 Dexamethasone 4 Mg Tablet, 4 MG PO DAILY Prescribed by: DANIEL CHESTER on 11/24/16 09 Fluticasone Propionate 16 Gm Naspr, 1 SPRAY NSEACH BID PRN, (Reported) NEEDED FOR ALLERGY SYMPTOMS Gabapentin 600 Mg Tablet, 600 MG PO Q6H, (Reported) Meclizine HCl 25 Mg Tablet, 25 MG PO Q4H PRN for DIZZINESS Prescribed by: DANIEL CHESTER on 11/24/16 09 Mv,Ca,Min/Iron Fum/Fa/Lyco/Lut 1 Each Tablet, 1 TAB PO DAILY, (Reported) Tramadol HCl 50 Mg Tablet, 50-100 MG PO Q6H, (Reported) [Dairy Digestive Supp] , 2 TAB PO TID PRN, (Reported) EQUATE DAIRY DIGESTIVE SUPPLEMENT TAKES NEEDED BEFORE EATING CHEESE [Sinus & Allergy] , 2 TAB PO BID PRN, (Reported) NEEDED FOR CONGESTION EQUATE SINUS AND ALLERGY Patient Home Medication List Home Medication List Reviewed: Yes Review of Systems Constitutional: No chills, No fever EENTM: no symptoms reported Respiratory: no symptoms reported Cardiovascular: no symptoms reported Gastrointestinal: no symptoms reported Musculoskeletal: see HPI Skin: see HPI Past Chjvtdj-Ydfaks-Nxwjth Hx Past Med/Social Hx: Reviewed Nursing Past Med/Soc Hx Patient Social History Recent Foreign Travel: No Contact w/Someone Who Travel: No Recent Hopitalizations: No Immunizations Up To Date Tetanus Booster (TDap): More than 5yrs PED Vaccines UTD: Yes Date of Pneumonia Vaccine: Mar 30, 2008 Date of Influenza Vaccine: Apr 13, 2018 Seasonal Allergies Seasonal Allergies: No Past Medical History Surgeries: Yes (bladder sling 1996) Cystectomy, 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, Orthopedic, Tonsillectomy Respiratory: No Cardiac: Yes High Cholesterol, Hypertension Neurological: No Reproductive Disorders: No Female Reproductive Disorders: 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, 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 Sexually Transmitted Disease: No HIV/AIDS: No Genitourinary: No Gastrointestinal: Yes Chronic Constipation Musculoskeletal: Yes Degenerate Disk Disease, Chronic Back Pain Endocrine: No HEENT: Yes (vision changes age - patient states ) Loss of Vision: Bilateral Hearing Impairment: Denies Cancer: No Psychosocial: Yes Anxiety Integumentary: No Blood Disorders: No Adverse Reaction/Blood Tranf: No Family Medical History Alzheimer's disease Arthritis Asthma Colon cancer Completed stroke Dementia Hypertension Myocardial infarction Visual disorder Cancer, Lung Disease, Other Conditions/Hx Physical Exam Vital Signs Vital Signs - First Documented 02/08/20 10:37 Temp 36.9 Pulse 78 Resp 18 B/P (MAP) 135/91 (106) Pulse Ox 96 Capillary Refill : Height, Weight, BMI Height: 5'5.00" Weight: 140lbs. 0.0oz. 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 tested, alert, normal mood/affect, oriented x 3 Skin: ecchymosis (anterior left shoulder and arm) Progress/Results/Core Measures Results/Orders My Orders Orders - DEEPAK BARRY DO Shoulder, Left, 3 Views (02/08/20 10:47) Ed Ortho/Other Supplies Order (02/08/20 11:52) Vital Signs/I&O 02/08/20 10:37 Temp 36.9 Pulse 78 Resp 18 B/P (MAP) 135/91 (106) Pulse Ox 96 Diagnostic Imaging Diagonstic Imaging: Xray Comments [facility] [place] NAME: CARIN BECK [facility] REC#: [id number] PT STATUS: REG ER : 1940 PHYSICIAN: DEEPAK BARRY DO ADMIT DATE: 02/08/20/ER Draft Date of Exam:02/08/20 SHOULDER, LEFT, 3 VIEWS EXAMINATION: Left shoulder, 3 views INDICATION: Left shoulder pain after fall approximately 1 week ago. COMPARISON: Chest radiograph performed on 04/21/2018. FINDINGS: There is a comminuted, impacted fracture of the distal radius. The acromioclavicular joint appears intact, as the distal clavicle is in good alignment with the acromion. Otherwise, no fracture or acute osseous abnormality. There is a thin rim of single layer periosteal reaction along the medial humeral head, which is likely reactive in nature. Humeral head is well-seated in the glenohumeral joint. Regional soft tissues are unremarkable. A spinal stimulator is demonstrated. The visualized left lung is clear. IMPRESSION: Impacted fracture of the distal left clavicle. The left acromioclavicular joint remains intact. No other acute fracture or shoulder dislocation is appreciated. Thin single layer periosteal reaction adjacent to the humeral head is likely reactive in nature. Report was called to [facility] ER by kalyani at 11:45am. Departure Impression Primary Impression: Closed left clavicular fracture Qualified Codes: S42.035A - Nondisplaced fracture of lateral end of left clavicle, initial encounter for closed fracture Disposition: 01 HOME, SELF-CARE Condition: Stable Departure-Patient Inst. Referrals: YADIEL ARAUJO DO (PCP/Family) Primary Care Physician Patient Instructions: Clavicle Fracture (DC) Add. Discharge Instructions: Follow-up with your primary care provider in 4-5 days for continuation of care and recheck in today symptoms You may use sling as needed for comfort All discharge instructions reviewed with patient and/or family. Voiced understanding. DEEPAK BARRY DO Feb 08, 2020 10:46
--- NOTE | 2020-02-08 11:44 | Diagnostic Imaging Report ---
EXAMINATION: Left shoulder, 3 views INDICATION: Left shoulder pain after fall approximately 1 week ago. COMPARISON: Chest radiograph performed on 04/21/2018. FINDINGS: There is a comminuted, impacted fracture of the distal radius. The acromioclavicular joint appears intact, as the distal clavicle is in good alignment with the acromion. Otherwise, no fracture or acute osseous abnormality. There is a thin rim of single layer periosteal reaction along the medial humeral head, which is likely reactive in nature. Humeral head is well-seated in the glenohumeral joint. Regional soft tissues are unremarkable. A spinal stimulator is demonstrated. The visualized left lung is clear. IMPRESSION: Impacted fracture of the distal left clavicle. The left acromioclavicular joint remains intact. No other acute fracture or shoulder dislocation is appreciated. Thin single layer periosteal reaction adjacent to the humeral head is likely reactive in nature. Report was called to [facility] ER by kalyani at 11:45am. Dictated by: Dictated on workstation # [id number]
[2020-02-08 12:24] VITALS: BP 135/91
== END 2020-02-08 12:21 | disposition home or self-care (01) ==
LOC: EDUNIT# 10:23 → ER 10:26
DX: S42.035A Nondisplaced fracture of lateral end of left clavicle, initial encounter for closed fracture (principal); I10 Essential (primary) hypertension; F41.9 Anxiety disorder, unspecified; G89.29 Other chronic pain; M54.9 Dorsalgia, unspecified; Z79.82 Long term (current) use of aspirin; Z79.51 Long term (current) use of inhaled steroids; Z88.1 Allergy status to other antibiotic agents; Z79.891 Long term (current) use of opiate analgesic; Z80.0 Family history of malignant neoplasm of digestive organs; Z82.49 Family history of ischemic heart disease and other diseases of the circulatory system; W19.XXXA Unspecified fall, initial encounter
CPT/HCPCS: 73030; A4565

== ENCOUNTER 2020-10-11 05:39 | Outpatient (CLI) | payer MEDICARE, OTHER ==
[~2020-10-11] VITALS: Ht 166 cm; Wt 63.6 kg
[~2020-10-11 05:39] MED LIST changes: +AMLO-250 PO; -AMLO5TAB9 PO
[2020-10-11] MEDS ORDERED: ALLO100T PO (11:20)
[2020-10-11] MEDS ORDERED: ALPR0.254 PO (11:20)
[2020-10-11] MEDS ORDERED: LOSA25TA41 PO (11:20)
[2020-10-11] MEDS ORDERED: FAMO40TA6 PO (11:20)
[2020-10-11] MEDS ORDERED: DICL50TA6 PO (11:20)
[2020-10-11] MEDS ORDERED: CHOL-34 PO (11:20)
== END 2020-10-11 11:22 | disposition home or self-care (01) ==
LOC: PREOP 05:39
PROVIDERS: ATTEND Specialist
DX: Z01.818 Encounter for other preprocedural examination (principal)

== ENCOUNTER 2020-10-13 11:41 | Day surgery (SDC) | payer MEDICARE, OTHER ==
[~2020-10-13] VITALS: Ht 166 cm; Wt 63.6 kg
[~2020-10-13 11:41] MED LIST changes: +ALLO100T PO; +ALPR0.254 PO; +CHOL-34 PO; +DICL50TA6 PO; +FAMO40TA6 PO; +LOSA25TA41 PO
[2020-10-13 12:00] VITALS: BP 153/67
[2020-10-13] MEDS: TETRACAINE 0.5% OPHTH SOLN 4 ML BTL (SINGLE DOSE ONLY) OU PRN ×4 (12:13→12:33)
[2020-10-13] MEDS ORDERED: MIDAZOLAM 2 MG/2 ML (VERSED) VIAL ONE (12:14)
[2020-10-13] MEDS ORDERED: TIMOLOL MALEATE 0.5% 5 ML (TIMOPTIC) BTL OU PRN (12:15)
[2020-10-13] MEDS ORDERED: MOXIFLOXACIN OPHTH SOLN 5 MG/ML 0.3 ML SYRINGE OP ONE (12:15)
[2020-10-13] MEDS ORDERED: POVIDONE (BETADINE) OPHTH SOLN 5% 30 ML OP ONE (12:15)
[2020-10-13] MEDS ORDERED: LIDOCAINE PF 1% 2 ML VIAL IR PRN (12:15)
[2020-10-13] MEDS: TROPICAMIDE 1% OPH SOLN (MYDRIACYL) 15 ML BTL OP SCH ×3 (12:21→12:33)
[2020-10-13] MEDS: PHENYLEPHRINE 10% OPHTH (NEO-SYN) 5 ML BTL OU SCH ×3 (12:21→12:33)
--- NOTE | 2020-10-13 12:38 | Ophthalmologist Pre-Op Note ---
Pre-Operative Progress Note H&P Reviewed The H&P was reviewed, patient examined and no changes noted. Date H&P Reviewed: Oct 13, 2020 Time H&P Reviewed: 12:38 Pre-Op Dx Cataract, Right Eye ROBERTO PUENTE MD Oct 13, 2020 12:38
--- NOTE | 2020-10-13 12:54 | Ophthalmology Operative Report ---
Cataract removal/placement IOL PREOPERATIVE DIAGNOSIS: Cataract Right Eye POSTOPERATIVE DIAGNOSIS: Cataract Right Eye PROCEDURE: Cataract removal and placement of posterior chamber implant, right eye SURGEON: Luis Puente ANESTHESIA: Topical with sedation COMPLICATIONS: None ESTIMATED BLOOD LOSS: Minimal DESCRIPTION OF PROCEDURE: After proper informed consent was obtained, the patient, a 80 female, was taken to the Operating Room and the right eye was anesthetized with tetracaine. The right eye was then prepped and draped in the usual manner. A wire lid speculum was placed. A paracentesis was made at the left hand position. Preservative free lidocaine was injected into the anterior chamber followed by viscoelastic. A clear corneal incision was made in the temporal position. A capsulorrhexis was preformed and the central nuclear and cortical material were removed. The posterior capsule was polished and Ilan A21.0 U00T0 IOL was placed into the capsular bag. The residual viscoelastic was aspirated and balanced saline solution was injected into the anterior chamber. Moxifloxacin was injected into the anterior chamber. The wound was checked and found to be water tight. The patient tolerated the procedure well without complications. LUIS PUENTE MD Oct 13, 2020 12:54
[2020-10-13 13:05] VITALS: BP 135/56
[2020-10-13] MEDS ORDERED: acetaZOLAMIDE ER 500 MG CAP (DIAMOX SEQUELS) PO ONE (13:30)
--- NOTE | 2020-10-13 14:51 | Anesthesia-General Post-Op ---
MAC Patient Condition Mental Status/LOC: Same as Preop Cardiovascular: Satisfactory Nausea/Vomiting: Absent Respiratory: Satisfactory Pain: Controlled Complications: Absent Post Op Complications Complications None Follow Up Care/Instructions Patient Instructions None needed. Anesthesiology Discharge Order Discharge Order Patient is doing well, no complaints, stable vital signs, no apparent adverse anesthesia problems. No complications reported per nursing. MAXINE BEAULIEU CRNA Oct 13, 2020 14:51
== END 2020-10-13 13:05 | disposition home or self-care (01) ==
LOC: SDC 11:41
PROVIDERS: ATTEND Specialist
DX: H25.11 Age-related nuclear cataract, right eye (principal); I10 Essential (primary) hypertension; Z80.41 Family history of malignant neoplasm of ovary; Z98.1 Arthrodesis status; Z90.710 Acquired absence of both cervix and uterus; Z98.890 Other specified postprocedural states; Z79.891 Long term (current) use of opiate analgesic; Z79.899 Other long term (current) drug therapy; Z79.1 Long term (current) use of non-steroidal anti-inflammatories (NSAID)
CPT/HCPCS: 66984; V2632

== ENCOUNTER 2020-11-03 11:49 | Day surgery (SDC) | payer MEDICARE, OTHER ==
[~2020-11-03] VITALS: Ht 166 cm; Wt 63.6 kg
[2020-11-03] MEDS ORDERED: MOXIFLOXACIN OPHTH SOLN 5 MG/ML 0.3 ML SYRINGE OP ONE (12:00)
[2020-11-03] MEDS ORDERED: TIMOLOL MALEATE 0.5% 5 ML (TIMOPTIC) BTL OU PRN (12:00)
[2020-11-03] MEDS ORDERED: LIDOCAINE PF 1% 2 ML VIAL IR PRN (12:00)
[2020-11-03] MEDS ORDERED: POVIDONE (BETADINE) OPHTH SOLN 5% 30 ML OP ONE (12:00)
[2020-11-03] MEDS: TETRACAINE 0.5% OPHTH SOLN 4 ML BTL (SINGLE DOSE ONLY) OU PRN ×4 (12:03→12:19)
[2020-11-03 12:07] VITALS: BP 165/65
[2020-11-03] MEDS ORDERED: MIDAZOLAM 2 MG/2 ML (VERSED) VIAL ONE (12:08)
[2020-11-03] MEDS: PHENYLEPHRINE 10% OPHTH (NEO-SYN) 5 ML BTL OU SCH ×3 (12:09→12:19)
[2020-11-03] MEDS: TROPICAMIDE 1% OPH SOLN (MYDRIACYL) 15 ML BTL OP SCH ×3 (12:10→12:19)
--- NOTE | 2020-11-03 12:10 | Ophthalmologist Pre-Op Note ---
Pre-Operative Progress Note H&P Reviewed The H&P was reviewed, patient examined and no changes noted. Date H&P Reviewed: November 03, 2020 Time H&P Reviewed: 12:10 Pre-Op Dx Cataract, Left Eye ROBERTO PUENTE MD November 03, 2020 12:10
[2020-11-03] MEDS ORDERED: acetaZOLAMIDE ER 500 MG CAP (DIAMOX SEQUELS) PO ONE (12:30)
--- NOTE | 2020-11-03 12:44 | Ophthalmology Operative Report ---
Cataract removal/placement IOL PREOPERATIVE DIAGNOSIS: Cataract Left Eye POSTOPERATIVE DIAGNOSIS: Cataract Left Eye PROCEDURE: Cataract removal and placement of posterior chamber implant, left eye SURGEON: Luis Puente ANESTHESIA: Topical with sedation COMPLICATIONS: None ESTIMATED BLOOD LOSS: Minimal DESCRIPTION OF PROCEDURE: After proper informed consent was obtained, the patient, a 80 female, was taken to the Operating Room and the left eye was anesthetized with tetracaine. The left eye was then prepped and draped in the usual manner. A wire lid speculum was placed. A paracentesis was made at the left hand position. Preservative free lidocaine was injected into the anterior chamber followed by viscoelastic. A clear corneal incision was made in the temporal position. A capsulorrhexis was preformed and the central nuclear and cortical material were removed. The posterior capsule was polished and an Ilan 20.5 AU00T0 was placed into the capsular bag. The residual viscoelastic was aspirated and balanced saline solution was injected into the anterior chamber. Moxifloxacin was injected into the anterior chamber. The wound was checked and found to be water tight. The patient tolerated the procedure well without complications. LUIS PUENTE MD November 03, 2020 12:44
[2020-11-03 12:49] VITALS: BP 168/75
--- NOTE | 2020-11-03 12:54 | Anesthesia-General Post-Op ---
MAC Patient Condition Mental Status/LOC: Same as Preop Cardiovascular: Satisfactory Nausea/Vomiting: Absent Respiratory: Satisfactory Pain: Controlled Complications: Absent Post Op Complications Complications None Follow Up Care/Instructions Patient Instructions None needed. Anesthesiology Discharge Order Discharge Order Patient is doing well, no complaints, stable vital signs, no apparent adverse anesthesia problems. No complications reported per nursing. ROGER FAN CRNA November 03, 2020 12:54
== END 2020-11-03 12:50 | disposition home or self-care (01) ==
LOC: SDC 11:49
PROVIDERS: ATTEND Specialist
DX: H25.12 Age-related nuclear cataract, left eye (principal); I10 Essential (primary) hypertension; R52 Pain, unspecified; Z79.891 Long term (current) use of opiate analgesic; Z98.890 Other specified postprocedural states; Z79.899 Other long term (current) drug therapy; Z80.41 Family history of malignant neoplasm of ovary; Z90.710 Acquired absence of both cervix and uterus; Z98.1 Arthrodesis status; Z88.5 Allergy status to narcotic agent; Z88.1 Allergy status to other antibiotic agents; Z88.8 Allergy status to other drugs, medicaments and biological substances; Z91.011 Allergy to milk products
CPT/HCPCS: 66984; V2632

== ENCOUNTER → 2021-01-19 | Outpatient (CLI) | payer MEDICARE, OTHER | LOC: CARD 10:00 | PROVIDERS: ATTEND Family Medicine | DX: I25.10 Atherosclerotic heart disease of native coronary artery without angina pectoris (principal); I08.3 Combined rheumatic disorders of mitral, aortic and tricuspid valves | CPT/HCPCS: 93306 ==

== ENCOUNTER → 2021-03-09 | Outpatient (CLI) | payer MEDICARE, OTHER ==
[~2021-03-09] MED LIST changes: +FAMO20TA5 PO; +VNL37.5T PO
--- NOTE | 2021-03-09 15:26 | Diagnostic Imaging Report ---
PROCEDURE: CT head without contrast. TECHNIQUE: Multiple contiguous axial images were obtained through the brain without the use of intravenous contrast. Auto Exposure Controls were utilized during the CT exam to meet ALARA standards for radiation dose reduction. DATE: March 09, 2021. COMPARISON: CT head November 23, 2016. INDICATION: 80-year-old female, headache and tremors. FINDINGS: There is proportional prominence of the ventricles and additional CSF spaces consistent with mild/moderate cerebral volume loss. There are mild probable findings of chronic small vessel ischemic disease. There is no mass effect or midline shift. There is no acute intracranial hemorrhage. There is no abnormal extra-axial fluid collection. The visualized portions of the paranasal sinuses, mastoid air cells and middle ears are well aerated. IMPRESSION: 1. No identified acute intracranial abnormality. 2. Mild to moderate cerebral volume loss with mild probable findings of chronic small vessel ischemic disease. Dictated by: Dictated on workstation # [id number]
--- NOTE | 2021-03-12 10:59 | Diagnostic Imaging Report ---
INDICATION: Routine screening. COMPARISON: 01/14/2017 and 10/19/2015. TECHNIQUE: 2D and 3D bilateral screening mammography was performed with CAD. FINDINGS: Both breasts are heterogeneously dense, limiting the sensitivity of mammography. There are scattered benign calcifications throughout both breasts. No mass or malignant-appearing microcalcifications are seen. The axillae are unremarkable. IMPRESSION: No mammographic features suspicious for malignancy are identified. ACR BI-RADS Category 2: Benign findings. Result letter will be mailed to the patient. Note: At least 10% of breast cancer is not imaged by mammography. Dictated by: Dictated on workstation # [id number]
== END ==
LOC: RAD 14:19
PROVIDERS: ATTEND Family Medicine
DX: Z12.31 Encounter for screening mammogram for malignant neoplasm of breast (principal); R51.9 Headache, unspecified; R25.1 Tremor, unspecified; Z91.81 History of falling
CPT/HCPCS: 70450; 77063; 77067

== ENCOUNTER 2021-03-12 14:25 | Inpatient (IN) | payer MEDICARE, OTHER ==
[~2021-03-12] VITALS: Ht 165 cm; Wt 63.6 kg
[~2021-03-12 14:25] MED LIST changes: -FAMO20TA5 PO; -VNL37.5T PO
[2021-03-12] MEDS ORDERED: ACETAMINOPHEN 325 MG TABLET PO PRN (15:00)
[2021-03-12] MEDS ORDERED: PATIENT MAY USE OWN MEDS, ALL PO SCH (15:00)
[2021-03-12] MEDS ORDERED: FAMO20TA5 PO (15:28)
[2021-03-12] MEDS ORDERED: VNL37.5T PO (15:28)
[2021-03-12 16:00] VITALS: BP 152/72
[2021-03-12 16:08] LABS: BASOPHILS % (AUTO) 1 % (0-10); EOSINOPHILS % (AUTO) 0 % (0-10); HEMATOCRIT 35 % (35-52); HEMOGLOBIN 11.5 g/dL (11.5-16.0); LYMPHOCYTES # (AUTO) 1.3 10^3/uL (1.0-4.0); LYMPHOCYTES % (AUTO) 20 % (12-44); MEAN CORPUSCULAR HEMOGLOBIN 33 pg (25-34); MEAN CORPUSCULAR HGB CONC 33 g/dL (32-36); MEAN CORPUSCULAR VOLUME 101 fL (80-99); MEAN PLATELET VOLUME 10.5 fL (9.0-12.2); MONOCYTES # (AUTO) 0.5 10^3/uL (0.0-1.0); MONOCYTES % (AUTO) 7 % (0-12); NEUTROPHILS # (AUTO) 4.5 10^3/uL (1.8-7.8); NEUTROPHILS % (AUTO) 71 % (42-75); PLATELET COUNT 179 10^3/uL (130-400); WHITE BLOOD COUNT 6.4 10^3/uL (4.3-11.0)
[2021-03-12 16:12] LABS: ALBUMIN 3.8 GM/DL (3.2-4.5)
[2021-03-12 16:13] LABS: CALCIUM 9.5 MG/DL (8.5-10.1)
[2021-03-12] MEDS: cefTRIAXone 1,000 MG in WATER (STERILE) FOR INJECTION 10 ML IV SCH (16:14)
[2021-03-12] MEDS: NS IV 1000 ML 1,000 ML IV SCH (16:14)
[2021-03-12 16:15] LABS: TOTAL PROTEIN 6.9 GM/DL (6.4-8.2)
[2021-03-12 16:16] LABS: BILIRUBIN,TOTAL 0.4 MG/DL (0.1-1.0)
[2021-03-12 16:18] LABS: CREATININE SERUM 1.35 MG/DL (0.60-1.30)
--- NOTE | 2021-03-12 17:48 | History & Physical ---
History of Present Illness History of Present Illness Reason for visit/HPI This is a 80 year old female who has presented to my office at least 4 times in the past 2 weeks for recurrent falls as well as worsening confusion. Today she presented with dysuria. She was found to have a UTI. She was also complaining of nausea and was very weak. She was not sure she would be able to tolerate an oral antibiotic due to her nausea and due to her worsening debility the past 2 weeks it was felt that she should be admitted for treatment of her UTI as well as hydration and to start PT and OT and adjust medications. Date of Admission Mar 12, 2021 at 14:43 Date Seen by a Provider: Mar 12, 2021 Time Seen by a Provider: 14:15 I consulted on this patient on 03/12/21 17:38 Attending Physician Yadiel Hernandez DO Admitting Physician Yadiel Hernandez DO Consult Allergies and Home Medications Allergies Coded Allergies: Milk Containing Products (Unverified Allergy, Unknown, 04/19/13) FROM UNCODED LIST codeine (Verified Allergy, Unknown, 10/11/20) erythromycin base (Unverified Allergy, Unknown, 08/29/06) metaxalone (Verified Allergy, Unknown, 10/11/20) Patient Home Medication List Home Medication List Reviewed: Yes ALPRAZolam (ALPRAZolam) 0.25 Mg Tablet, 0.25 MG PO BID PRN for ANXIETY, (Reported) Entered as Reported by: MORA FLORES on 10/11/20 1120 Last Action: Reviewed Allopurinol (Allopurinol) 100 Mg Tablet, 100 MG PO DAILY, (Reported) Entered as Reported by: MORA FLORES on 10/11/20 1120 Last Action: Reviewed Amlodipine Besylate (Amlodipine Besylate) 5 Mg Tablet, 5 MG PO BID, (Reported) Entered as Reported by: TIMO HUFFMAN on 11/23/16 1533 Last Action: Reviewed Famotidine (Famotidine) 20 Mg Tablet, 20 MG PO DAILY, (Reported) Entered as Reported by: VIRGEN TATUM on 03/12/21 1528 Last Action: Reviewed Gabapentin (Gabapentin) 600 Mg Tablet, 600 MG PO HS, (Reported) Entered as Reported by: TIMO HUFFMAN on 11/23/16 1533 Last Action: Reviewed Losartan Potassium (Losartan Potassium) 25 Mg Tablet, 25 MG PO DAILY, (Reported) Entered as Reported by: MORA FLORES on 10/11/20 1120 Last Action: Reviewed Tramadol HCl (Tramadol HCl) 50 Mg Tablet, 50-100 MG PO Q6H PRN for PAIN-MODERATE (5-7), (Reported) Entered as Reported by: TIMO HUFFMAN on 11/23/16 1533 Last Action: Reviewed Venlafaxine HCl (Venlafaxine HCl) 37.5 Mg Tab, 37.5 MG PO DAILY, (Reported) Entered as Reported by: VIRGEN TATUM on 03/12/21 1528 Last Action: Reviewed Discontinued Medications Cholecalciferol (Vitamin D3) (Vitamin D3) 25 Mcg Tablet, 25 MCG PO DAILY, (Reported) Discontinued Reason: No Longer Taking Entered as Reported by: MORA FLORES on 10/11/20 1120 Last Action: Discontinued Diclofenac Sodium (Diclofenac Sodium) 50 Mg Tablet.dr, 50 MG PO TID PRN for MUSCLE SPASMS, (Reported) Discontinued Reason: No Longer Taking Entered as Reported by: MORA FLORES on 10/11/20 1120 Last Action: Discontinued [Dairy Digestive Supp] , 2 TAB PO TID PRN, (Reported) Discontinued Reason: No Longer Taking Entered as Reported by: JOSELYN SANTIAGO on 04/08/13 1036 Last Action: Discontinued Past Orfnlws-Pjsfdp-Uqkknx Hx Patient Social History Marrital Status: Immunizations Up To Date Date of Influenza Vaccine: Apr 13, 2018 First/Initial COVID19 Vaccinat: 07/27/20 Second COVID19 Vaccination Bladimir: 08/24/20 Hepatitis A: Yes Hepatitis B: Yes PED Vaccines UTD: Yes Date of Pneumonia Vaccine: Mar 30, 2008 Seasonal Allergies Seasonal Allergies: No Current Status status: No status: No Advance Directives: Unable to obtain Advance Directive Location: Unable to obtain copy Communicates: Verbally Primary Language: [place] Preferred Spoken Language: [place] Is interpretation needed?: No Sensory deficits: Vision impairment, Hearing impairment Past Medical History Surgeries: Cystectomy, 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, Orthopedic, Tonsillectomy High Cholesterol, Hypertension 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: 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, Menopausal Sexually Transmitted Disease: No HIV/AIDS: No Chronic Constipation Degenerate Disk Disease, Chronic Back Pain Hypothyroidsim Loss of Vision: Bilateral Hearing Impairment: Denies Anxiety Blood Disorders: No Adverse Reaction/Blood Tranf: No Family Medical History Alzheimer's disease Arthritis Asthma Colon cancer Completed stroke Dementia Hypertension Myocardial infarction Visual disorder Cancer, Lung Disease, Other Conditions/Hx Review of Systems Constitutional: weakness EENTM: No see HPI, No no symptoms reported, No ear discharge, No hearing loss, No ear pain, No blurred vision, No double vision, No eye pain, No tearing, No vision loss, No dental problems, No hoarseness, No mouth pain, No mouth swelling, No epistaxis, No nose congestion, No nose pain, No throat pain, No throat swelling, No other Respiratory: No no symptoms reported, No see HPI, No cough, No dyspnea on exertion, No hemoptysis, No orthopnea, No phlegm, No short of breath, No stridor, No wheezing, No other Cardiovascular: chest pain Gastrointestinal: loss of appetite, nausea Genitourinary: dysuria, frequency Musculoskeletal: back pain, muscle weakness Skin: No no symptoms reported, No see HPI, No change in color, No change in hair/nails, No dryness, No hx of skin cancer, No lesions, No lumps, No pruritus, No rash, No other Psychiatric/Neurological: Anxiety, Depressed, Tremors, Weakness, Other (memory loss/confusion) Physical Exam Vital Signs Vital Signs - First Documented 03/12/21 03/12/21 14:50 16:00 Temp 36.3 Pulse 67 Resp 20 B/P (MAP) 152/72 (98) Pulse Ox 100 O2 Delivery Room Air Capillary Refill : Height, Weight, BMI Height: 5'5.00" Weight: 140lbs. 0.0oz. 63.911278ci; 23.36 BMI Method:Stated General Appearance: Mild Distress Neck: Supple Respiratory: Lungs Clear Cardiovascular: Regular Rate, Rhythm Gastrointestinal: Normal Bowel Sounds, Soft, Tenderness (epigastric and suprapubic) Rectal: Deferred Back: No CVA Tenderness, Vertebral Tenderness Extremity: Non Tender, No Calf Tenderness, No Pedal Edema Neurologic/Psychiatric: Alert, Abnormal Gait, Disoriented, Motor Weakness, Other (anxious and shakey) Skin: Warm/Dry Comments Laboratory Tests 03/12/21 15:48: White Blood Count 6.4, Red Blood Count 3.45L, Hemoglobin 11.5, Hematocrit 35, Mean Corpuscular Volume 101H, Mean Corpuscular Hemoglobin 33, Mean Corpuscular Hemoglobin Concent 33, Red Cell Distribution Width 13.9, Platelet Count 179, Mean Platelet Volume 10.5, Immature Granulocyte % (Auto) 0, Neutrophils (%) (Auto) 71, Lymphocytes (%) (Auto) 20, Monocytes (%) (Auto) 7, Eosinophils (%) (Auto) 0, Basophils (%) (Auto) 1, Neutrophils # (Auto) 4.5, Lymphocytes # (Auto) 1.3, Monocytes # (Auto) 0.5, Eosinophils # (Auto) 0.0, Basophils # (Auto) 0.0, Immature Granulocyte # (Auto) 0.0, Sodium Level 141, Potassium Level 4.0, Chloride Level 106, Carbon Dioxide Level 28, Anion Gap 7, Blood Urea Nitrogen 26 H, Creatinine 1.35H, Estimat Glomerular Filtration Rate 38, BUN/Creatinine Ratio 19, Glucose Level 108H, Calcium Level 9.5, Corrected Calcium 9.7, Total Bilirubin 0.4, Aspartate Amino Transf (AST/SGOT) 24, Alanine Aminotransferase (ALT/SGPT) 18, Alkaline Phosphatase 54, C-Reactive Protein High Sensitivity 0.42, Total Protein 6.9, Albumin 3.8 Assessment/Plan Assessment and Plan 1. Acute UTI with Altered Mental Status and Dyspepsia/Nausea--admit and start rocephin 2. Acute Renal Insufficiency--hydrate and monitor BUN/Cr 3. Nausea/Dyspepsia--start protonix and use zofran prn 4. Falls--Recurrent--start PT/OT, have been weaning off high dose gabapentin 5. Worsening Debility--may need to consider rehab 6. Altered Mental Status/Memory Loss--likely worsened by infection and anxiety and medications but also underlying dementia 7. Lumbar Degenerative Disc Disease--Uses tramadol with tylenol prn 8. Tremors--weaning off high dose gabapentin 9. Generalized Anxiety Disorder with recent depression/grieving--increase effexor ER to 37.5mg po BID, patient has been on fdc xanax and this could be contributing to confusion so will decrease dose while inpatient and monitor Admission Diagnosis Admission Status: Inpatient Order (span 2 midnights) Reason for Inpatient Admission: Will need at least 48hrs of IV abx and fluids and therapy YADIEL Yin DO Mar 12, 2021 17:48
[2021-03-12 20:00] VITALS: BP 173/75
[2021-03-12] MEDS: busPIRone 5 MG (BUSPAR) TAB PO SCH (21:42)
[2021-03-12] MEDS: VENlafaxine XR 37.5 MG (EFFEXOR XR) CAP PO SCH (21:42)
[2021-03-12] MEDS: ALPRAZolam 0.25 MG (XANAX) TAB PO SCH (21:43)
[2021-03-12 23:10] VITALS: BP 159/73
[2021-03-13] VITALS (8 sets, daily range): BP systolic 100–190; BP diastolic 63–81
[2021-03-13] MEDS: NS IV 1000 ML 1,000 ML IV SCH ×3 (00:01→18:02)
[2021-03-13] MEDS: VENlafaxine XR 37.5 MG (EFFEXOR XR) CAP PO SCH ×2 (08:02→20:37)
[2021-03-13] MEDS: ALPRAZolam 0.25 MG (XANAX) TAB PO SCH ×2 (08:02→20:37)
[2021-03-13] MEDS: busPIRone 5 MG (BUSPAR) TAB PO SCH ×2 (08:02→20:37)
[2021-03-13] MEDS: ONDANSETRON 4 MG/2 ML (SDV) Z0FRAN IV PRN (08:02)
[2021-03-13] MEDS: PANTOPRAZOLE 40 MG (PROTONIX) VIAL IV SCH (08:02)
[2021-03-13] MEDS ORDERED: amLODIPine 5 MG (NORVASC) TAB PO SCH (09:00)
--- NOTE | 2021-03-13 09:35 | Occupational Therapy Eval ---
OT Evaluation-General/PLF Medical Diagnosis Admission Date Mar 12, 2021 at 14:43 Medical Diagnosis: UTI, Nausea Onset Date: Mar 12, 2021 Therapy Diagnosis Therapy Diagnosis: Weakness, Decreased ADL skills Height/Weight Height (Feet): 5 Height (Inches): 5.00 Weight (Pounds): 140 Weight (Ounces): 0.0 Precautions Precautions/Isolations: Fall Prevention, Standard Precautions Weight Bear Status Weight Bearing Restriction: Weight Bearing/Tolerated Referral Physician: Dr. Hernandez Referral Reason: Activity Tolerance, Self Care, Evaluation/Treatment, [facility] Medical History Pertinent Medical History: HTN Additional Medical History 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, DDD Current History Pt. came to Dr. jackson. Reported multiple falls at home. Confusion. Admitted with UTI and nausea. Reviewed History: Yes Social History Home: Single Level Current Living Status: Alone Entry Into Home: Level Entry ADL-Prior Level of Function SCALE: Activities may be completed with or without assistive devices. 3-Unbetntclt-lnyrrvh completes the activity by him/herself with no assistance from a helper. 5-Set-up or Clean-up Assistance-helper sets up or cleans up; patient completes activity. Boswell assists only prior to or following the activity. 4-Supervision or Touching Assistance-helper provides verbal cues and/or touching/steadying and/or contact guard assistance as patient completes activity. Assistance may be provided throughout the activity or intermittently. 3-Partial/Moderate Assistance-helper does LESS THAN HALF the effort. Boswell lifts, holds or supports trunk or limbs, but provides less than half the effort. 2-Substantial/Maximal Assistance-helper does MORE THAN HALF the effort. Boswell lifts or holds trunk or limbs and provides more than half the effort. 1-Mymlnqsbz-coujfh does ALL the effort. Patient does none of the effort to complete the activity. Or, the assistance of 2 or more helpers is required for the patient to complete the activity. If activity was not attempted, code reason: 7-Patient Refused. 9-Not Applicable-not attempted and the patient did not perform the activity before the current illness, exacerbation or injury. 10-Not Attempted due to Environmental Limitations-(lack of equipment, weather restraints, etc.). 88-Not Attempted due to Medical Conditions or Safety Concerns. ADL PLOF Comments Pt. states that her spouse last June. She states that she is currently independent with daily skills, but does fall at home. She does not use an assistive device. She is unsure if she has one at home. She is also unsure if she has a shower chair. Self Care: Unknown Functional Cognition: Unknown DME/Equipment: Tub/Shower Drive Self: Yes (Per pt.) OT Current Status Subjective No pain reported. Appearance Pt. in bed. Alert. Agrees to work with OT. Mental Status/Objective Patient Orientation: Person, Place, Time, Situation Attachments: IV Current Glasses/Contacts: Yes Upper Extremity ROM WFL Upper Extremity Strength WFL ADL-Treatment Eating (QC): 5 Shower/Bathe Self (QC): 4 (CGA in stance to wash pelon area.) Lower Body Dressing (QC): 4 (CGA in stance to don underwear over hips.) On/Off Footwear (QC): 4 (SBA to doff/don slipper socks.) Toileting Hygiene (QC): 4 (SBA) Other Treatments Pt. agrees to work with OT. She is able to transfer to EOB with SBA. She is able to doff/don slipper socks with SBA. OT asks if pt. needs to toilet and she does. Pt. ambulates without assistive device, with SBA to bathroom. Completes quick sponge bath with warm bath wipes while on toilet. Pt. able to wash all parts with SBA/CGA in stance for balance. Ambulates back to bed. All needs met. Education OT Patient Education: Correct positioning, Modified ADL techniques, Progress toward Goal/Update tx plan, Purpose of tx/functional activities, Reviewed precautions, Rehab process, Transfer techniques Teaching Recipient: Patient Teaching Methods: Demonstration, Discussion Response to Teaching: Verbalize Understanding, Return Demonstration OT Short Piece Handler Goals Fpc Goals Time Frame: Mar 20, 2021 Eating (QC): 6 Oral Hygiene (QC): 6 Toileting Hygiene (QC): 6 Shower/Bathe Self (QC): 5 Upper Body Dressing (QC): 6 Lower Body Dressing (QC): 6 On/Off Footwear (QC): 6 Additional Goals: 1-Demonstrate ADL Tasks, 2-Verbalize Understanding, 3-ImproveStrength/Usman 1=Demonstrate adherence to instructed precautions during ADL tasks. 2=Patient will verbalize/demonstrate understanding of assistive devices/modifications for ADL. 3=Patient will improve strength/tolerance for activity to enable patient to perform ADL's. OT Education/Plan Problem List/Assessment Assessment: Decreased Activ Tolerance, Impaired I ADL's, Impaired Self-Care Skills Discharge Recommendations Plan/Recommendations: Continue POC Therapy Discharge Recommendati: Home & Family Treatment Plan/Plan of Care Treatment,Training & Education: Yes Patient would benefit from OT for education, treatment and training to promote independence in ADL's, mobility, safety and/or upper extremity function for ADL's. Plan of Care: ADL Retraining, Functional Mobility, UE Funct Exercise/Act Treatment Duration: Mar 20, 2021 Frequency: 5 times per week Estimated Hrs Per Day: .25 hour per day Agreement: Yes Rehab Potential: Good Time/GCodes Start Time: 08:50 Stop Time: 09:05 Total Time Billed (hr/min): 15 Billed Treatment Time 1, JANNA DANIELS OT Mar 13, 2021 09:35
--- NOTE | 2021-03-13 12:16 | Physical Therapy Evaluation ---
PT Evaluation-General Medical Diagnosis Admission Date Mar 12, 2021 at 14:43 Medical Diagnosis: UTI, Nausea Onset Date: Mar 12, 2021 Therapy Diagnosis Therapy Diagnosis: generalized weakness/debility Height/Weight Height (Feet): 5 Height (Inches): 5.00 Weight (Pounds): 140 Weight (Ounces): 0.0 Precautions Precautions/Isolations: Fall Prevention, Standard Precautions Referral Physician: Dr. Hernandez Reason for Referral: Evaluation/Treatment Medical History Pertinent Medical History: HTN, Hypothroidism, Renal Insufficiency Current History Direct admit from physicians office due to falls and weakness Reviewed History: Yes Social History Home: Single Level Current Living Status: Alone Entry Into Home: Level Entry Prior Prior Level of Function SCALE: Activities may be completed with or without assistive devices. 3-Tgmmyiqhvi-inivwer completes the activity by him/herself with no assistance from a helper. 5-Set-up or Clean-up Assistance-helper sets up or cleans up; patient completes activity. Amma assists only prior to or following the activity. 4-Supervision or Touching Assistance-helper provides verbal cues and/or touching/steadying and/or contact guard assistance as patient completes activity. Assistance may be provided throughout the activity or intermittently. 3-Partial/Moderate Assistance-helper does LESS THAN HALF the effort. Amma lifts, holds or supports trunk or limbs, but provides less than half the effort. 2-Substantial/Maximal Assistance-helper does MORE THAN HALF the effort. Amma lifts or holds trunk or limbs and provides more than half the effort. 1-Hzmosbdmi-mckidk does ALL the effort. Patient does none of the effort to complete the activity. Or, the assistance of 2 or more helpers is required for the patient to complete the activity. If activity was not attempted, code reason: 7-Patient Refused. 9-Not Applicable-not attempted and the patient did not perform the activity before the current illness, exacerbation or injury. 10-Not Attempted due to Environmental Limitations-(lack of equipment, weather restraints, etc.). 88-Not Attempted due to Medical Conditions or Safety Concerns. Bed Mobility: 6 Transfers (B,C,W/C): 6 Gait: 6 Indoor Mobility (Ambulation): Independent Stairs: Independent Prior Devices Use: None PT Evaluation-Current Subjective Patient agrees to PT. Objective Patient Orientation: Normal For Age Attachments: IV ROM/Strength ROM Lower Extremities bilateral LE WFL Strength Lower Extremities 4-/5 grossly bilateral LE Integumentary/Posture Bowel Incontinence: No Bladder Incontinence: No Posture WFL Neuromuscular (Tone, Coordination, Reflexes) grossly intact Sensory Vision: Functional Hearing: Functional Transfers Lying to Sitting/Side of Bed(Q: 4 Sit to Stand (QC): 4 Chair/Jzz-is-Nctxp Xfer(QC): 4 Toilet Transfer (QC): 4 SBA with all mobility Gait Does the Patient Walk?: Yes Mode of Locomotion: Walk Anticipated Mode of Locomotion: Walk Walk 10 feet (QC): 4 Walk 50 ft with 2 Turns(QC): 4 Gait Assistive Device: None Balance Sitting Static: Normal Sitting Dynamic: Normal Standing Static: Good Standing Dynamic: Good Assessment/Needs 80 y.o. female, will benefit from short term skilled PT to address functional mobility to ensure safe return to home at maximum LOF. Rehab Potential: Fair PT Commercial Painter Goals Shelter Goals PT Shelter Goals Time Frame: Mar 24, 2021 Roll Left & Right (QC): 6 Sit to Lying (QC): 6 Lying-Sitting on Side/Bed(QC): 6 Sit to Stand (QC): 6 Chair/Xbc-bv-Vvufs Xfer(QC): 6 Toilet Transfer (QC): 6 Walk 10 feet (QC): 6 Walk 50ft with 2 Turns (QC): 6 Walk 150 ft (QC): 6 PT Plan Problem List Problem List: Activity Tolerance, Safety, Balance, Gait Treatment/Plan Treatment Plan: Continue Plan of Care Treatment Plan: Bed Mobility, Education, Functional Activity Usman, Functional Strength, Gait, Safety, Therapeutic Exercise, Transfers Treatment Duration: Mar 24, 2021 Frequency: 6 times per week Estimated Hrs Per Day: .25 hour per day Patient and/or Family Agrees t: Yes Time/GCodes Time In: 1141 Time Out: 1151 Total Billed Treatment Time: 10 Total Billed Treatment 1 visit [facility] 11 min ANAID BOSE PT Mar 13, 2021 12:16
[2021-03-13] MEDS ORDERED: LOSARTAN 50 MG (COZAAR) TAB PO NR (12:30)
--- NOTE | 2021-03-13 12:47 | Progress Note ---
Subjective Date Seen by a Provider: Mar 13, 2021 Time Seen by a Provider: 12:42 Subjective/Events-last exam Fwup UTI, acute renal insufficiency, recurrent falls, confusion, chronic back pain. Patient having hypertensive urgency but then got up to commode and became dizzy and nauseated so nursing check blood pressure and was hypotensive. Objective Exam Vital Signs Date Time Temp Pulse Resp B/P (MAP) Pulse Ox O2 Delivery O2 Flow Rate FiO2 03/13/21 11:31 36.0 69 19 150/75 (100) 98 Room Air 03/13/21 08:03 71 188/65 (106) 03/13/21 08:00 Room Air 03/13/21 08:00 36.2 75 18 188/75 (112) 97 Room Air 03/13/21 07:45 75 166/76 (106) 75 100/64 (76) 03/13/21 03:22 36.1 60 18 109/63 (78) 97 Room Air 03/12/21 23:10 36.5 66 18 159/73 (101) 98 Room Air 03/12/21 20:00 37.2 71 18 173/75 (107) 98 Room Air 03/12/21 19:45 Room Air 03/12/21 16:00 36.3 67 20 152/72 (98) 100 Room Air 03/12/21 14:50 Room Air I & O 03/13/21 07:00 Intake Total 440 ml Balance 440 ml Capillary Refill : General Appearance: Mild Distress Neck: Supple Respiratory: Lungs Clear Cardiovascular: Regular Rate, Rhythm, Systolic Murmur, Gallop/S4 Gastrointestinal: normal bowel sounds, non tender, soft Extremity: Non Tender, No Calf Tenderness, No Pedal Edema Neurologic/Psychiatric: Alert, Oriented x3 Skin: Warm/Dry Results Lab Laboratory Tests 03/12/21 15:48: White Blood Count 6.4, Red Blood Count 3.45L, Hemoglobin 11.5, Hematocrit 35, Mean Corpuscular Volume 101H, Mean Corpuscular Hemoglobin 33, Mean Corpuscular Hemoglobin Concent 33, Red Cell Distribution Width 13.9, Platelet Count 179, Mean Platelet Volume 10.5, Immature Granulocyte % (Auto) 0, Neutrophils (%) (Auto) 71, Lymphocytes (%) (Auto) 20, Monocytes (%) (Auto) 7, Eosinophils (%) (Auto) 0, Basophils (%) (Auto) 1, Neutrophils # (Auto) 4.5, Lymphocytes # (Auto) 1.3, Monocytes # (Auto) 0.5, Eosinophils # (Auto) 0.0, Basophils # (Auto) 0.0, Immature Granulocyte # (Auto) 0.0, Sodium Level 141, Potassium Level 4.0, Chloride Level 106, Carbon Dioxide Level 28, Anion Gap 7, Blood Urea Nitrogen 26H, Creatinine 1.35H, Estimat Glomerular Filtration Rate 38, BUN/Creatinine Ratio 19, Glucose Level 108H, Calcium Level 9.5, Corrected Calcium 9.7, Total Bilirubin 0.4, Aspartate Amino Transf (AST/SGOT) 24, Alanine Aminotransferase (ALT/SGPT) 18, Alkaline Phosphatase 54, C-Reactive Protein High Sensitivity 0.42, Total Protein 6.9, Albumin 3.8 03/12/21 20:11: Glucometer 151H Assessment/Plan Assessment/Plan Assess & Plan/Chief Complaint 1. UTI--on rocephin 2. Acute Renal Insufficiency--decrease IVFs and repeat Chemistry in AM 3. Hypertensive Urgency with Orthostatic Hypotension--check 2-D ECHO, consult cardiology, start MATT hose 4. Recurrent Falls/Weakness--PT and OT started--orthostasis may be a cause 5. 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 Anxiety/Depression with recent worsening due to grieving--increased effexor dose I had a long discussion with patient's son last night and they prefer she return to home if able but have discussed possible placement if needed Clinical Quality Measures Admission Status Admission Dx 1. Acute UTI with Altered Mental Status and Dyspepsia/Nausea--admit and start rocephin 2. Acute Renal Insufficiency--hydrate and monitor BUN/Cr 3. Nausea/Dyspepsia--start protonix and use zofran prn 4. Falls--Recurrent--start PT/OT, have been weaning off high dose gabapentin 5. Worsening Debility--may need to consider rehab 6. Altered Mental Status/Memory Loss--likely worsened by infection and anxiety and medications but also underlying dementia 7. Lumbar Degenerative Disc Disease--Uses tramadol with tylenol prn 8. Tremors--weaning off high dose gabapentin 9. Generalized Anxiety Disorder with recent depression/grieving--increase effexor ER to 37.5mg po BID, patient has been on half-way xanax and this could be contributing to confusion so will decrease dose while inpatient and monitor YADIEL ARAUJO DO Mar 13, 2021 12:47
--- NOTE | 2021-03-13 13:52 | Consultation-Cardiology ---
HPI-Cardiology Cardiology Consultation Date of Consultation 03/13/21 Date of Admission Time Seen by Provider: 16:01 Indication: Syncope HPI Michelle Car is an 80y/o female who presents with recurrent falls. PMHx of cardiomyopathy, HTN, and chronic back pain. History was taken from pt and her sister. Pt is a poor historian. She states she has been having episodes of fa lling for the last couple weeks. Most of the falls have been at home and pt does not remember much about the falls but did state a couple of the falls happened after getting out of her chair at home. She's also currently being treated for an UTI. Sister reports that the falls began before the dysuria. Pt had an episode today while in the hospital where she was being helped up from the bed to use the bathroom and became dizzy. 80-year-old lady with history of hypertension, difficult to control, has been having generalized weakness, multiple falls, admitted with UTI, during the hosp ital stay patient had an episode of orthostatic weakness and she has significant drop in her blood pressure. On my evaluation she was feeling better, laying down in bed, using MATT hose. Receiving IV fluid. Home Medications & Allergies Allergies: Coded Allergies: Milk Containing Products (Unverified Allergy, Unknown, 04/19/13) FROM UNCODED LIST codeine (Verified Allergy, Unknown, 10/11/20) erythromycin base (Unverified Allergy, Unknown, 08/29/06) metaxalone (Verified Allergy, Unknown, 10/11/20) Home Medication List Reviewed: Yes XDI-Kyzery-Tcspqa Hx Patient Social History Marital Status: Employed/Student: retired Smoking Status: Never a Smoker Recent Hopitalizations: No Have you traveled recently?: No Immunizations Up To Date Tetanus Booster (TDap): More than 5yrs Date of Pneumonia Vaccine: Mar 30, 2008 Date of Influenza Vaccine: Apr 13, 2018 Past Medical History Discussed below Family Medical History Significant Family History: Cancer, Lung Disease, Other Conditions/Hx Family Medical Hx Noncontributory Family History: Alzheimer's disease Arthritis Asthma Colon cancer Completed stroke Dementia Hypertension Myocardial infarction Visual disorder Review of Systems-General Review of Systems Constitutional: see HPI, chills; No fever EENTM: see HPI; No blurred vision, No double vision Respiratory: see HPI; No cough, No short of breath Cardiovascular: see HPI; No chest pain, No palpitations; syncope Gastrointestinal: No abdominal pain Genitourinary: see HPI, dysuria Musculoskeletal: no symptoms reported, see HPI Skin: no symptoms reported, see HPI Psychiatric/Neurological: Denies Headache, Denies Numbness, Denies Tingling Reviewed Test Results Reviewed Test Results Lab Laboratory Tests 03/12/21 15:48: Red Blood Count 3.45L, Mean Corpuscular Volume 101H, Blood Urea Nitrogen 26H, Creatinine 1.35H, Glucose Level 108H 03/12/21 20:11: Glucometer 151H Laboratory Tests 03/12/21 15:48 Physical Exam Physical Exam Vital Signs Vital Signs - First Documented 03/12/21 03/12/21 14:50 16:00 Temp 36.3 Pulse 67 Resp 20 B/P (MAP) 152/72 (98) Pulse Ox 100 O2 Delivery Room Air Capillary Refill : Height, Weight, BMI Height: 5'5.00" Weight: 140lbs. 0.0oz. 63.630668py; 23.36 BMI Method:Stated General Appearance: Anxious, Mild Distress Eyes: Bilateral Eye Normal Inspection, Bilateral Eye PERRL, Bilateral Eye EOMI HEENT: PERRL/EOMI; No Photophobia Neck: Supple; No Carotid Bruit Respiratory: Lungs Clear, Normal Breath Sounds Cardiovascular: Regular Rate, Rhythm; No JVD Gastrointestinal: Non Tender, Soft, Tenderness (epigastric and suprapubic) Back: Normal Inspection, No CVA Tenderness, No Vertebral Tenderness Extremity: Non Tender, No Calf Tenderness, No Pedal Edema Neurologic/Psychiatric: Alert, developer relations manager II-XII Norm as Tested Skin: Warm/Dry Lymphatic: No Adenopathy A/P-Cardiology Admission Diagnosis Orthostatic hypotension Labile hypertension UTI Carotid stenosis Assessment/Plan Orthostatic hypotension, multiple falls, probably due to the orthostatic hypotension. Patient was started on IV fluids. Have underlying labile blood pressure. I will discontinue amlodipine, continue losartan and add metoprolol and monitor tolerance and response, started on MATT hose Hypertension, labile blood pressure, discontinue amlodipine, started on metoprolol and continue losartan and monitor tolerance and response. I will evaluate twelve-lead EKG, monitor on telemetry for the next 24 hours UTI, Currently taking Ceftriaxone. Managed by Dr. Hernandez History of mild carotid stenosis, last ultrasound was done in 2019, continue to monitor Chronic back pain, managed by primary care physician Terry, for which she takes Xanax PRN and Venlafaxine QD History of tonsillectomy, hysterectomy, laminectomy and lumbar fusion surgeries Supervisory-Addendum Brief Verification & Attestation Participated in pt care: history, MDM, physical Personally performed: exam, history, MDM, supervision of care Care discussed with: Medical Student Procedures: n/a Results interpretation: Verified all documentation Verification and Attestation of Medical Student E/M Service A medical student performed and documented this service in my presence. I reviewed and verified all information documented by the medical student and made modifications to such information, when appropriate. I personally performed the physical exam and medical decision making. I used italic font in making modifications to the note Alessandro Quinn, Mar 13, 2021,16:04 SANDRA JETER Mar 13, 2021 13:52 ALESSANDRO QUINN MD Mar 13, 2021 16:05
[2021-03-13] MEDS: cefTRIAXone 1,000 MG in WATER (STERILE) FOR INJECTION 10 ML IV SCH (17:58)
[2021-03-14] VITALS (25 sets, daily range): BP systolic 69–188; BP diastolic 41–90
[2021-03-14] MEDS: ONDANSETRON 4 MG/2 ML (SDV) Z0FRAN IV PRN (04:42)
[2021-03-14 06:25] LABS: HEMATOCRIT 35 % (35-52); HEMOGLOBIN 11.6 g/dL (11.5-16.0); MEAN CORPUSCULAR HEMOGLOBIN 33 pg (25-34); MEAN CORPUSCULAR HGB CONC 33 g/dL (32-36); MEAN CORPUSCULAR VOLUME 98 fL (80-99); MEAN PLATELET VOLUME 10.8 fL (9.0-12.2); PLATELET COUNT 189 10^3/uL (130-400); WHITE BLOOD COUNT 6.3 10^3/uL (4.3-11.0)
[2021-03-14 06:38] LABS: POTASSIUM 3.5 MMOL/L (3.6-5.0)
[2021-03-14] MEDS: NS IV 1000 ML 1,000 ML IV SCH ×2 (06:42→15:03)
[2021-03-14 06:44] LABS: CREATININE SERUM 1.06 MG/DL (0.60-1.30)
--- NOTE | 2021-03-14 07:46 | Cardiology Progress Note ---
Subjective Date Seen by Provider: Mar 14, 2021 Time Seen by Provider: 10:00 Subjective/Events-last exam Pt reports that she is having episodes of nausea. Denies any vomiting. Pt said that when she got up to use the bathroom this morning she did not become dizzy. Nurse also stated this. Pt says that she has not had any episodes of dizziness or light headedness while in bed the last day. Review of Systems General: Chills; No Other (fever) HEENT: No Head Aches, No Visual Changes Pulmonary: No Dyspnea, No Cough Cardiovascular: No: Chest Pain, Palpitations Gastrointestinal: Nausea, Abdominal Pain; No: Vomiting Neurological: No: Weakness, Numbness Objective-Cardiology Exam Last Set of Vital Signs Vital Signs 03/14/21 03/14/21 12:13 16:00 Temp 36.8 Pulse 59 Resp 16 B/P (MAP) 185/74 (111) Pulse Ox 96 O2 Delivery Room Air I&O Intake and Output 03/14/21 00:00 Intake Total 860 ml Output Total 350 ml Balance 510 ml Intake Oral 860 ml Output Urine Total 350 ml # Voids 7 General: Alert, Oriented X3, Cooperative HEENT: PERRLA, EOMI Neck: Supple, No JVD Lungs: Clear to Auscultation, Normal Air Movement Heart: Regular Rate, No Murmurs Abdomen: Soft, No Tenderness Extremities: Normal Pulses, No Tenderness/Swelling Neuro: Normal Speech Psych/Mental Status: Mental Status NL Results Lab Laboratory Tests 03/14/21 05:12 A/P-Cardiology Admission Diagnosis Orthostatic hypotension Labile hypertension UTI Carotid stenosis Assessment/Plan Orthostatic hypotension, multiple falls, probably due to the orthostatic hypotension. Patient was started on IV fluids. Have underlying labile blood pressure. Discontinued amlodipine, continue losartan, metoprolol and monitor tolerance and response, Continue on MATT hose Hypertension, labile blood pressure, discontinued amlodipine, continue on metoprolol and losartan and monitor tolerance and response. Continue to monitor on telemetry for the next 12hours UTI, Currently taking Ceftriaxone. Managed by Dr. Hernandez History of mild carotid stenosis, last ultrasound was done in 2019, continue to monitor Chronic back pain, managed by primary care physician Anxiety, for which she takes Xanax PRN and Venlafaxine QD History of tonsillectomy, hysterectomy, laminectomy and lumbar fusion surgeries Supervisory-Addendum Brief Verification & Attestation Participated in pt care: history, MDM, physical Personally performed: exam, history, MDM, supervision of care Care discussed with: Medical Student Procedures: n/a Results interpretation: Verified all documentation Verification and Attestation of Medical Student E/M Service A medical student performed and documented this service in my presence. I rev iewed and verified all information documented by the medical student and made modifications to such information, when appropriate. I personally performed the physical exam and medical decision making. Alessandro Dela Cruz, Mar 14, 2021,17:25 SANDRA JETER Mar 14, 2021 07:46 ALESSANDRO DELA CRUZ MD Mar 14, 2021 17:25
[2021-03-14] MEDS: PANTOPRAZOLE 40 MG (PROTONIX) VIAL IV SCH (08:28)
[2021-03-14] MEDS: busPIRone 5 MG (BUSPAR) TAB PO SCH ×2 (08:29→20:55)
[2021-03-14] MEDS: ALPRAZolam 0.25 MG (XANAX) TAB PO SCH ×2 (08:29→20:54)
[2021-03-14] MEDS: VENlafaxine XR 37.5 MG (EFFEXOR XR) CAP PO SCH ×2 (08:29→20:54)
[2021-03-14] MEDS ORDERED: LOSARTAN 50 MG (COZAAR) TAB PO SCH (09:00)
--- NOTE | 2021-03-14 09:01 | Physical Therapy Daily Note ---
PT Daily Note-Current Subjective Pt in bed upon arrival and agrees to tx. Pt has no c/o pain. Mental Status Patient Orientation: Person, Place, Situation Attachments: IV Transfers SCALE: Activities may be completed with or without assistive devices. 9-Jjonekqmgh-ibioqnt completes the activity by him/herself with no assistance from a helper. 5-Set-up or Clean-up Assistance-helper sets up or cleans up; patient completes activity. [place] assists only prior to or following the activity. 4-Supervision or Touching Assistance-helper provides verbal cues and/or touching/steadying and/or contact guard assistance as patient completes activit y. Assistance may be provided throughout the activity or intermittently. 3-Partial/Moderate Assistance-helper does LESS THAN HALF the effort. [place] lifts, holds or supports trunk or limbs, but provides less than half the effort. 2-Substantial/Maximal Assistance-helper does MORE THAN HALF the effort. [place] lifts or holds trunk or limbs and provides more than half the effort. 4-Plciqawvl-vxzgzt does ALL the effort. Patient does none of the effort to complete the activity. Or, the assistance of 2 or more helpers is required for the patient to complete the activity. If activity was not attempted, code reason: 7-Patient Refused. 9-Not Applicable-not attempted and the patient did not perform the activity before the current illness, exacerbation or injury. 10-Not Attempted due to Environmental Limitations-(lack of equipment, weather restraints, etc.). 88-Not Attempted due to Medical Conditions or Safety Concerns. Roll Left & Right (QC): 6 Sit to Lying (QC): 6 Lying to Sitting/Side of Bed(Q: 6 Sit to Stand (QC): 4 Gait Training Does the Patient Walk?: Yes Distance: 60' Walk 10 feet (QC): 3 Walk 50 ft with 2 Turns(QC): 3 Gait Assistive Device: None Pt has slow, shuffling gait w/ kyphotic posture. Pt amb w/o an AD, but uses wall to help stabilize. Treatments Pt performs bed mobility, and sits EOB. Pt sits EOB holding static sitting w/o any LOB. Pt remains seated while RN enters room and administers meds. Once finished, pt sit to stand and begins to amb. Pt takes two steps then has LOB, corrects by grabbing on bottom of bed as well as CLUB [employer] using gait belt. Pt becomes stabilized and gains balance back and continues amb. Pt amb in hallway w/ CLUB CONCIERGE following w/ IV. Pt returns to bed and was left with all needs met, call light in hand. Assessment Current Status: Good Progress Pt increasing endurance and strength. Pt experiences LOB during gait PT Jail Goals Communications Marketing Intern Goals PT Jail Goals Time Frame: Mar 24, 2021 Roll Left & Right (QC): 6 Sit to Lying (QC): 6 Lying-Sitting on Side/Bed(QC): 6 Sit to Stand (QC): 6 Chair/Ssw-nd-Mxrhp Xfer(QC): 6 Toilet Transfer (QC): 6 Walk 10 feet (QC): 6 Walk 50ft with 2 Turns (QC): 6 Walk 150 ft (QC): 6 PT Plan Problem List Problem List: Balance Treatment/Plan Treatment Plan: Continue Plan of Care Treatment Plan: Bed Mobility, Education, Functional Activity Usman, Functional Strength, Gait, Safety, Therapeutic Exercise, Transfers Treatment Duration: Mar 24, 2021 Frequency: 6 times per week Estimated Hrs Per Day: .25 hour per day Patient and/or Family Agrees t: Yes Time/GCodes Time In: 820 Time Out: 834 Total Billed Treatment Time: 14 Total Billed Treatment 1, GT MYKELGRISELDA [employer] Mar 14, 2021 09:01
[2021-03-14] MEDS ORDERED: ATROPINE INJECTION 1 MG/10 ML SYR (ABBOTT) ONE (12:23)
[2021-03-14] MEDS ORDERED: NS IV 1000 ML 1,000 ML ONE (12:23)
--- NOTE | 2021-03-14 13:01 | Progress Note ---
Subjective Date Seen by a Provider: Mar 14, 2021 Time Seen by a Provider: 12:58 Subjective/Events-last exam Fwup UTI, acute renal insufficiency, recurrent falls, confusion, chronic back pain, hypertensive urgency with orthostatic hypotension. Not as dizzy getting up but still with nausea. Objective Exam Vital Signs Date Time Temp Pulse Resp B/P (MAP) Pulse Ox O2 Delivery O2 Flow Rate FiO2 03/14/21 12:13 37.2 61 18 186/78 (114) 95 Room Air 03/14/21 08:00 36.8 56 18 169/78 (108) 97 Room Air 03/14/21 08:00 Room Air 03/14/21 06:42 64 03/14/21 04:00 36.1 57 18 175/80 (111) 97 Room Air 03/14/21 01:00 54 03/13/21 23:57 36.4 61 18 178/81 (113) 99 Room Air 03/13/21 20:40 Room Air 03/13/21 19:34 36.9 64 18 180/79 (112) 96 Room Air 03/13/21 19:00 65 03/13/21 18:39 79 03/13/21 16:00 37.2 69 18 180/70 (106) 97 Room Air I & O 03/14/21 07:00 Intake Total 1060 ml Output Total 650 ml Balance 410 ml Capillary Refill : General Appearance: No Apparent Distress Respiratory: Lungs Clear Cardiovascular: Regular Rate, Rhythm, Systolic Murmur Gastrointestinal: normal bowel sounds, non tender, soft Extremity: Non Tender, No Calf Tenderness, No Pedal Edema Neurologic/Psychiatric: Alert Results Lab Laboratory Tests 03/14/21 05:12: White Blood Count 6.3, Red Blood Count 3.54L, Hemoglobin 11.6, Hematocrit 35, Mean Corpuscular Volume 98, Mean Corpuscular Hemoglobin 33, Mean Corpuscular Hemoglobin Concent 33, Red Cell Distribution Width 13.0, Platelet Count 189, Mean Platelet Volume 10.8, Sodium Level 140, Potassium Level 3.5L, Chloride Level 106, Carbon Dioxide Level 24, Anion Gap 10, Blood Urea Nitrogen 15, Creatinine 1.06, Estimat Glomerular Filtration Rate 50, BUN/Creatinine Ratio 14, Glucose Level 89, Calcium Level 9.0 Microbiology 03/12/21 Blood Culture - Preliminary, Resulted No growth Assessment/Plan Assessment/Plan Assess & Plan/Chief Complaint 1. UTI-- culture growing out E. coli--on rocephin 2. Acute Renal Insufficiency--improved after hydration 3. Hypertensive Urgency with Orthostatic Hypotension--tilt table today--changed to metoprolol with losartan 4. Recurrent Falls/Weakness--PT and OT started--orthostasis may be a cause, did well walking in [place] with PT this morning 5. 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 Anxiety/Depression with recent worsening due to grieving--increased effexor dose 7. DC plans for home in AM with home health Clinical Quality Measures Admission Status Admission Dx 1. Acute UTI with Altered Mental Status and Dyspepsia/Nausea--admit and start rocephin 2. Acute Renal Insufficiency--hydrate and monitor BUN/Cr 3. Nausea/Dyspepsia--start protonix and use zofran prn 4. Falls--Recurrent--start PT/OT, have been weaning off high dose gabapentin 5. Worsening Debility--may need to consider rehab 6. Altered Mental Status/Memory Loss--likely worsened by infection and anxiety and medications but also underlying dementia 7. Lumbar Degenerative Disc Disease--Uses tramadol with tylenol prn 8. Tremors--weaning off high dose gabapentin 9. Generalized Anxiety Disorder with recent depression/grieving--increase effexor ER to 37.5mg po BID, patient has been on [facility] xanax and this could be contributing to confusion so will decrease dose while inpatient and monitor YADIEL ARAUJO DO Mar 14, 2021 13:01
--- NOTE | 2021-03-14 14:12 | Occ Therapy Progress Note ---
Therapy Progress Note Per nrsg, pt passed out during tilt stress test. Nrsg stated to MERRITT that pt unable to participate in OT at this time. Will check on pt tomorrow. MARISA Rolle Mar 14, 2021 14:12
[2021-03-14] MEDS: cefTRIAXone 1,000 MG in WATER (STERILE) FOR INJECTION 10 ML IV SCH (15:01)
--- NOTE | 2021-03-14 16:22 | Cardiology Tilt Table Test ---
Cardiology-Tilt Table Test Tilt Table Test Date 03/14/21 Baseline Vitals Vital Signs Date Time Temp Pulse Resp B/P (MAP) Pulse Ox O2 Delivery O2 Flow Rate FiO2 03/12/21 14:50 Room Air 03/12/21 16:00 36.3 67 20 152/72 (98) 100 Vital Signs VS - Last 72 Hours, by Label 03/12/21 03/12/21 03/12/21 03/12/21 14:50 16:00 19:45 20:00 Temp 36.3 37.2 Pulse 67 71 Resp 20 18 B/P (MAP) 152/72 (98) 173/75 (107) Pulse Ox 100 98 O2 Delivery Room Air Room Air Room Air Room Air 03/12/21 03/13/21 03/13/21 03/13/21 23:10 03:22 07:45 08:00 Temp 36.5 36.1 36.2 Pulse 66 60 75 75 75 Resp 18 18 18 B/P (MAP) 159/73 (101) 109/63 (78) 166/76 (106) 188/75 (112) 100/64 (76) Pulse Ox 98 97 97 O2 Delivery Room Air Room Air Room Air 03/13/21 03/13/21 03/13/21 03/13/21 08:00 08:03 11:31 16:00 Temp 36.0 37.2 Pulse 71 69 69 Resp 19 18 B/P (MAP) 188/65 (106) 150/75 (100) 180/70 (106) Pulse Ox 98 97 O2 Delivery Room Air Room Air Room Air 03/13/21 03/13/21 03/13/21 03/13/21 18:39 19:00 19:34 20:40 Temp 36.9 Pulse 79 65 64 Resp 18 B/P (MAP) 180/79 (112) Pulse Ox 96 O2 Delivery Room Air Room Air 03/13/21 03/14/21 03/14/21 03/14/21 23:57 01:00 04:00 06:42 Temp 36.4 36.1 Pulse 61 54 57 64 Resp 18 18 B/P (MAP) 178/81 (113) 175/80 (111) Pulse Ox 99 97 O2 Delivery Room Air Room Air 03/14/21 03/14/21 03/14/21 03/14/21 08:00 08:00 12:13 12:43 Temp 36.8 37.2 Pulse 56 61 Resp 18 18 B/P (MAP) 169/78 (108) 186/78 (114) 188/90 (122) Pulse Ox 97 95 O2 Delivery Room Air Room Air Room Air 03/14/21 03/14/21 03/14/21 03/14/21 12:44 12:46 12:49 12:52 Pulse 68 70 70 B/P (MAP) 138/75 (96) 142/80 (100) 153/89 (110) 156/87 (110) Pulse Ox 98 97 03/14/21 03/14/21 03/14/21 03/14/21 12:53 12:54 12:56 12:57 Pulse 60 63 65 64 B/P (MAP) 150/85 (106) 187/84 (118) 167/90 (115) 151/89 (109) Pulse Ox 96 94 03/14/21 03/14/21 03/14/21 03/14/21 13:00 13:01 13:03 13:04 Pulse 73 75 79 80 B/P (MAP) 94/59 (71) 104/64 (77) 112/71 (85) 116/70 (85) Pulse Ox 93 03/14/21 03/14/21 03/14/21 03/14/21 13:07 13:08 13:10 13:11 Pulse 76 82 69 B/P (MAP) 100/60 (73) 83/41 (55) 69/47 (54) 159/83 (108) Pulse Ox 98 03/14/21 03/14/21 13:13 13:15 Pulse 60 61 B/P (MAP) 176/83 (114) 175/86 (115) Pulse Ox 98 98 Patient was tilted to 75 degrees for [10] minutes, then returned to supine position, given [2] sublingual nitroglycerin tablets, then tilted again to 75 degrees for [15] minutes. During test, patient was: had a syncopal event at minute In Conclusion;: Positive Tilt Table Test Patient is started test with severe hypertension with blood pressure 188/90 Stage I: Patient became nauseous, blood pressure dropped immediately to 150/85, continue to range in that level without any further symptoms. Stage II: Patient received sublingual nitroglycerin while laying down, blood pressure continue to be around 160/80 and patient was asymptomatic Stage III: On the second phase of tilting patient became nauseous and sympto matic and her blood pressure dropped to the mid 90s systolic without syncope, heart rate was 70 then her blood pressure improved slightly to 115/80 and heart rate stayed in the 70, at the minute 10 patient had her blood pressure dropping again then she had a syncopal episode at that point her blood pressure was 69/40, patient was placed back in Trendelenburg position and her blood pressure recovered fairly quickly to 176/84. Heart rate prior to the syncope was between 80-100. Conclusion Positive tilt table test with vasodepressor syncope Patient started with severe hypertension then had syncopal episode with severe hypotension Discussion and recommendation Patient will be unable to tolerate aggressive antihypertensive medication, we will try low-dose beta blockers with selective beta 1 mehran. She will be educated in length about maneuvers to avoid full syncope due to the fact that she was symptomatic for about 2 to 3 minutes prior to passing out. Unfortunately she will not be able to avoid full syncope if she continues to be standing especially that the test started with her baseline blood pressure around 180 systolic. DIANE DELA CRUZ MD Mar 14, 2021 16:21
[2021-03-14] MEDS: LOSARTAN 25 MG (COZAAR) TAB PO SCH (20:54)
[2021-03-15 03:36] VITALS: BP 125/58
[2021-03-15] MEDS: NS IV 1000 ML 1,000 ML IV SCH ×2 (05:08→18:39)
[2021-03-15] MEDS: ONDANSETRON 4 MG/2 ML (SDV) Z0FRAN IV PRN (05:40)
[2021-03-15 07:00] VITALS: BP 160/80
[2021-03-15] MEDS: busPIRone 5 MG (BUSPAR) TAB PO SCH (08:18)
[2021-03-15] MEDS: ALPRAZolam 0.25 MG (XANAX) TAB PO SCH ×2 (08:18→20:37)
[2021-03-15] MEDS: PANTOPRAZOLE 40 MG (PROTONIX) TAB PO SCH (08:18)
[2021-03-15] MEDS: VENlafaxine XR 37.5 MG (EFFEXOR XR) CAP PO SCH ×2 (08:18→20:37)
--- NOTE | 2021-03-15 08:21 | Cardiology Progress Note ---
Subjective Date Seen by Provider: Mar 15, 2021 Time Seen by Provider: 08:05 Subjective/Events-last exam Patient is sitting up in bed, no new complaints. Noted to be hypertensive this morning. Review of Systems General: No Chills, No Night Sweats, No Fatigue, No Malaise, No Appetite, No Other HEENT: No Head Aches, No Visual Changes, No Eye Pain, No Ear Pain, No Dysphasia, No Sinus Congestion, No Post Nasal Drip, No Sore Throat, No Other Pulmonary: No Dyspnea, No Cough, No Pleuritic Chest Pain, No Other Cardiovascular: No: Chest Pain, Palpitations, Orthopnea, Paroxysmal Noc. Dyspnea, Edema, Lt Headedness, Other Objective-Cardiology Exam Last Set of Vital Signs Vital Signs 03/15/21 03:36 Temp 36.7 Pulse 53 Resp 18 B/P (MAP) 125/58 (80) Pulse Ox 96 O2 Delivery Room Air I&O Intake and Output 03/15/21 00:00 Intake Total 750 ml Output Total 900 ml Balance -150 ml Intake Oral 750 ml Output Urine Total 900 ml # Voids 2 General: Alert, Oriented X3, Cooperative HEENT: PERRLA, EOMI Neck: Supple, No JVD Lungs: Clear to Auscultation, Normal Air Movement Heart: Regular Rate, Normal S1, Normal S2, No Murmurs Abdomen: Soft, No Tenderness Extremities: No Clubbing, No Cyanosis, Normal Pulses, No Tenderness/Swelling Skin: No Rashes Neuro: Normal Speech Psych/Mental Status: Mental Status NL, Mood NL A/P-Cardiology Admission Diagnosis Orthostatic hypotension Labile hypertension UTI Carotid stenosis Assessment/Plan Orthostatic hypotension, multiple falls, Underwent TTT yesterday, positive for vasodepressive syncope. Continues to have labile HTN, will continue Toprol XL and losartan and this time, Continue on MATT hose Hypertension, labile blood pressure, continue on metoprolol and losartan and monitor tolerance and response. Sinus node dysfunction, borderline bradycardia, tolerating low-dose beta-block ers. Continue on current medication and continue to monitor UTI, Currently taking Ceftriaxone. Managed by Dr. Hernandez History of mild carotid stenosis, last ultrasound was done in 2019, continue to monitor Chronic back pain, managed by primary care physician Anxiety, for which she takes Xanax PRN and Venlafaxine QD History of tonsillectomy, hysterectomy, laminectomy and lumbar fusion surgeries Supervisory-Addendum Brief Supervisory Addendum Participated in pt care: history, MDM, physical Personally performed: exam, history, MDM Care discussed with: OPHELIA Results interpretation: Verified all documentation Notes: Patient was seen and evaluated with Krys, examination performed, management plan was discussed, agree with the current scribed note, I made few changes to the note using Italic font Patient was seen at bedside laying down comfortably, no new complaint Blood pressure was evaluated at bedside and it was 196/84. Has labile blood pressure with extreme elevation and hypotension during tilt table test. We will continue low-dose beta-blockers and low-dose ARB in addition to the MATT hose, aggressive hydration. Patient has high risk of syncope and falls, discussed with Dr. Mary VALDES,KRYS JACINTO Mar 15, 2021 08:21 DIANE DELA CRUZ MD Mar 15, 2021 08:46
--- NOTE | 2021-03-15 10:11 | Physical Therapy Daily Note ---
PT Daily Note-Current Subjective Patient c/o nausea. Agrees to PT/OT. Mental Status Patient Orientation: Person, Time, Situation Attachments: IV Transfers SCALE: Activities may be completed with or without assistive devices. 5-Mbbznnbuhu-eaofxby completes the activity by him/herself with no assistance from a helper. 5-Set-up or Clean-up Assistance-helper sets up or cleans up; patient completes activity. [place] assists only prior to or following the activity. 4-Supervision or Touching Assistance-helper provides verbal cues and/or touching/steadying and/or contact guard assistance as patient completes activity. Assistance may be provided throughout the activity or intermittently. 3-Partial/Moderate Assistance-helper does LESS THAN HALF the effort. [place] lifts, holds or supports trunk or limbs, but provides less than half the effort. 2-Substantial/Maximal Assistance-helper does MORE THAN HALF the effort. [place] lifts or holds trunk or limbs and provides more than half the effort. 3-Ysfmsncri-fnlbkt does ALL the effort. Patient does none of the effort to complete the activity. Or, the assistance of 2 or more helpers is required for the patient to complete the activity. If activity was not attempted, code reason: 7-Patient Refused. 9-Not Applicable-not attempted and the patient did not perform the activity before the current illness, exacerbation or injury. 10-Not Attempted due to Environmental Limitations-(lack of equipment, weather restraints, etc.). 88-Not Attempted due to Medical Conditions or Safety Concerns. Lying to Sitting/Side of Bed(Q: 5 Sit to Stand (QC): 5 Chair/Cwc-rz-Lwgcw Xfer(QC): 5 Gait Training Does the Patient Walk?: Yes Distance: 50' Walk 10 feet (QC): 5 Walk 50 ft with 2 Turns(QC): 5 Gait Assistive Device: FWW safe and functional with no deviation with FWW use Treatments Orthostatic hypotension testing performed for patient safety and education. Results are as follows: supine BP 178/79 HR 54; sit BP 114/56 HR 59; stand BP 101/55 HR 61; after activity BP 108/56 HR 68 Assessment Patient tolerated treatment well and is up in recliner. OT remains in room. Increase activity as tolerated by patient. PT Silk Brusher Goals Silk Brusher Goals PT Jail Goals Time Frame: Mar 24, 2021 Roll Left & Right (QC): 6 Sit to Lying (QC): 6 Lying-Sitting on Side/Bed(QC): 6 Sit to Stand (QC): 6 Chair/Fel-qh-Ozlwz Xfer(QC): 6 Toilet Transfer (QC): 6 Walk 10 feet (QC): 6 Walk 50ft with 2 Turns (QC): 6 Walk 150 ft (QC): 6 PT Plan Treatment/Plan Treatment Plan: Continue Plan of Care Treatment Plan: Bed Mobility, Education, Functional Activity [place], Functional Strength, Gait, Safety, Therapeutic Exercise, Transfers Treatment Duration: Mar 24, 2021 Frequency: 6 times per week Estimated Hrs Per Day: .25 hour per day Patient and/or Family Agrees t: Yes Time/GCodes Time In: 947 Time Out: 1001 Total Billed Treatment Time: 14 Total Billed Treatment 1 visit FA 14 min ANAID BOSE PT Mar 15, 2021 10:11
--- NOTE | 2021-03-15 10:14 | Occupational Ther Daily Note ---
OT Current Status-Daily Note Subjective Pt. dozing in bed, easy to wake. Pt. agrees to therapy. Pt c/o pain in R calf, no warmth or tightness noted. Pt c/o nausea. Mental Status/Objective Patient Orientation: Person, Place, Time, Situation Attachments: IV, Telemetry ADL-Treatment Therapy Code Descriptions/Definitions Functional [place] Measure: 0=Not Assessed/NA 4=Minimal Assistance 1=Total Assistance 5=Supervision or Setup 2=Maximal Assistance 6=Modified [place] 3=Moderate Assistance 7=Complete IndependenceSCALE: Activities may be completed with or without assistive devices. 6-Kjthgakwil-vrxgher completes the activity by him/herself with no assistance from a helper. 5-Set-up or Clean-up Assistance-helper sets up or cleans up; patient completes activity. [place] assists only prior to or following the activity. 4-Supervision or Touching Assistance-helper provides verbal cues and/or touching/steadying and/or contact guard assistance as patient completes activity. Assistance may be provided throughout the activity or intermittently. 3-Partial/Moderate Assistance-helper does LESS THAN HALF the effort. [place] lifts, holds or supports trunk or limbs, but provides less than half the effort. 2-Substantial/Maximal Assistance-helper does MORE THAN HALF the effort. [place] lifts or holds trunk or limbs and provides more than half the effort. 3-Xsfryvcrt-tatwjn does ALL the effort. Patient does none of the effort to complete the activity. Or, the assistance of 2 or more helpers is required for the patient to complete the activity. If activity was not attempted, code reason: 7-Patient Refused. 9-Not Applicable-not attempted and the patient did not perform the activity before the current illness, exacerbation or injury. 10-Not Attempted due to Environmental Limitations-(lack of equipment, weather restraints, etc.). 88-Not Attempted due to Medical Conditions or Safety Concerns. Other Treatment Pt. agrees to B UE exercises. Pt. performed shoulder horizontal abd/add, bicep flex, elbow ext, opposite hand to opposite shoulder 10 reps each ex against gravity. PT entered room and began working with OT for stand/ambu. Orthostatic BP taken: BP supine: 178/79 Hr 54, Sitting 114/56 HR 59, Standing BP 101/55 HR 61 taken again 108/56 HR maintained. Pt. walked with PT to door in room then to recliner BP 108/56 HR 68. Pt. in recliner call light/phone in reach. All needs met in room. OT Mechanical Fitter Goals Long-Term Goals Time Frame: Mar 20, 2021 Eating (QC): 6 Oral Hygiene (QC): 6 Toileting Hygiene (QC): 6 Shower/Bathe Self (QC): 5 Upper Body Dressing (QC): 6 Lower Body Dressing (QC): 6 On/Off Footwear (QC): 6 Additional Goals: 1-Demonstrate ADL Tasks, 2-Verbalize Understanding, 3- ImproveStrength/Usman 1=Demonstrate adherence to instructed precautions during ADL tasks. 2=Patient will verbalize/demonstrate understanding of assistive d evices/modifications for ADL. 3=Patient will improve strength/tolerance for activity to enable patient to perform ADL's. OT Education/Plan Problem List/Assessment Assessment: Decreased Activ Tolerance, Impaired Self-Care Skills Discharge Recommendations Plan/Recommendations: Continue POC Treatment Plan/Plan of Care Patient would benefit from OT for education, treatment and training to promote independence in ADL's, mobility, safety and/or upper extremity function for ADL's. Plan of Care: ADL Retraining, Functional Mobility, UE Funct Exercise/Act Treatment Duration: Mar 20, 2021 Frequency: 5 times per week Estimated Hrs Per Day: .25 hour per day Agreement: Yes Rehab Potential: Fair Time/GCodes Start Time: 09:40 Stop Time: 10:00 Total Time Billed (hr/min): 20 Billed Treatment Time 1 visit-EX 1 (20 min) MARISA CABRALES Mar 15, 2021 10:14
[2021-03-15 12:00] VITALS: BP 140/70
[2021-03-15] MEDS ORDERED: VNL37.5T PO (12:56)
[2021-03-15] MEDS ORDERED: MTP25TSR PO (12:56)
[2021-03-15] MEDS ORDERED: LOSA25TA41 PO (12:56)
[2021-03-15] MEDS ORDERED: ALPR0.254 PO (12:56)
[2021-03-15] MEDS ORDERED: FAMO20TA5 PO (12:56)
[2021-03-15] MEDS ORDERED: TRM50T PO (12:56)
[2021-03-15] MEDS ORDERED: MELO7.5T46 PO (12:57)
[2021-03-15 15:57] VITALS: BP 190/90
[2021-03-15] MEDS: cefTRIAXone 1,000 MG in WATER (STERILE) FOR INJECTION 10 ML IV SCH (17:04)
--- NOTE | 2021-03-15 17:28 | Progress Note ---
Subjective Date Seen by a Provider: Mar 15, 2021 Time Seen by a Provider: 12:30 Subjective/Events-last exam Fwup UTI, acute renal insufficiency, recurrent falls, confusion, chronic back pain, hypertensive urgency with orthostatic hypotension. Had tilt table yesterday afternoon and passed out with BP bottoming to 70/40 even with MATT hose on during test. Has been more dizzy and confused since then and blood pressures continue to be labile with pulse down to 50. Still intermittent nausea but is eating a little better today. Objective Exam Vital Signs Date Time Temp Pulse Resp B/P (MAP) Pulse Ox O2 Delivery O2 Flow Rate FiO2 03/15/21 15:57 37.2 60 20 190/90 (123) 96 Room Air 03/15/21 12:54 56 03/15/21 12:00 36.5 57 14 140/70 (93) 96 Room Air 03/15/21 08:00 Room Air 03/15/21 07:00 36.1 58 18 160/80 (106) 95 Room Air 03/15/21 06:32 50 03/15/21 03:36 36.7 53 18 125/58 (80) 96 Room Air 03/15/21 01:00 50 03/14/21 23:25 36.9 57 18 169/78 (108) 96 Room Air 03/14/21 20:55 Room Air 03/14/21 20:48 36.8 58 18 180/80 (113) 97 Room Air 03/14/21 19:00 60 I & O 03/15/21 07:00 Intake Total 550 ml Output Total 1200 ml Balance -650 ml Capillary Refill : General Appearance: Mild Distress Respiratory: Lungs Clear Cardiovascular: Regular Rate, Rhythm, Systolic Murmur Gastrointestinal: normal bowel sounds, non tender, soft Extremity: Non Tender, No Calf Tenderness, No Pedal Edema Neurologic/Psychiatric: Alert Skin: Warm/Dry Results Lab Microbiology 03/12/21 Blood Culture - Preliminary, Resulted No growth Assessment/Plan Assessment/Plan Assess & Plan/Chief Complaint 1. UTI-- culture growing out E. coli--on rocephin 2. Acute Renal Insufficiency--improved after hydration 3. Hypertensive Urgency with Orthostatic Hypotension--significantly positive tilt table, patient is very high risk for falling and lives alone so I recommended to both the patient and her sons that AL is needed 4. Recurrent Falls/Weakness--PT and OT started--likely from orthostatic hypotension and is very high risk for recurrent falls 5. 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 Anxiety/Depression with recent worsening due to grieving--increased effexor dose 7. Her son will be in town tomorrow and patient will be discharged to home per her and son's request with home health as they assess MD facilities Clinical Quality Measures Admission Status Admission Dx 1. Acute UTI with Altered Mental Status and Dyspepsia/Nausea--admit and start rocephin 2. Acute Renal Insufficiency--hydrate and monitor BUN/Cr 3. Nausea/Dyspepsia--start protonix and use zofran prn 4. Falls--Recurrent--start PT/OT, have been weaning off high dose gabapentin 5. Worsening Debility--may need to consider rehab 6. Altered Mental Status/Memory Loss--likely worsened by infection and anxiety and medications but also underlying dementia 7. Lumbar Degenerative Disc Disease--Uses tramadol with tylenol prn 8. Tremors--weaning off high dose gabapentin 9. Generalized Anxiety Disorder with recent depression/grieving--increase effexor ER to 37.5mg po BID, patient has been on assisted xanax and this could be contributing to confusion so will decrease dose while inpatient and monitor YADIEL ARAUJO DO Mar 15, 2021 17:28
--- NOTE | 2021-03-15 17:50 | D/C HH Face to Face Order ---
D/C Face to Face Orders Reconcile Patient Problems Problems Reviewed?: Yes Instructions for Patient Via [email or web address], Patient Instructions/FollowUp: Fwup with Dr. Hernandez in [address] Quinn in 2-4 weeks Physician to follow Patient: Mary Discharge Diet for Home: Low Sodium Diet Patient Problems: Severe Orthostatic Hypotension Hypertension Recurrent Falls/High Fall Risk Mixed Depression and Anxiety Chronic Back Pain Medication Changes Confusion/Dementia due to Small Vessel Disease Patient Data-Allergies,Ht & Wt Patient Allergies: Coded Allergies: Milk Containing Products (Unverified Allergy, Unknown, 04/19/13) FROM UNCODED LIST codeine (Verified Allergy, Unknown, 10/11/20) erythromycin base (Unverified Allergy, Unknown, 08/29/06) metaxalone (Verified Allergy, Unknown, 10/11/20) Height (Feet): 5 Height (Inches): 5.00 Weight (Pounds): 140 Weight (Ounces): 0.0 Home Health Need/Face to Face Date of Face to Face: Mar 16, 2021 Clinical Findings: Instability, Unsteady gait I have seen Pt kknh-[id number]-[id number]: Yes Discharged To: Home Diagnosis/Conditions: Severe Orthostatic Hypotension Hypertension Recurrent Falls/High Fall Risk Mixed Depression and Anxiety Chronic Back Pain Medication Changes Confusion/Dementia due to Small Vessel Disease Patient is Homebound due to: CognItive deficits, Aden fall risk due to instabilty Homebound Status Due to the above stated illness, injury or surgical procedure (medical condition or diagnosis) and associated clinical findings, the patient is homebound because of his/her inability to leave home except with aid of a supportive device and/or person AND leaving the home requires a considerable and taxing effort or is medically contraindicated. Pt req the following assistanc: Aid of another person Home Health Nursing Orders Home Health Services Order: Nursing Services Therapy Orders Christofer Canchola--on in AM and off in PM Certify Stmt I certify that this patient is under my care and that I, a nurse practitioner or a physician; a undertaker assistant working with me, had a face to face encounter that - meets the physician face to face encounter requirements with this patient as dated. YADIEL HERNANDEZ DO Mar 15, 2021 17:50
[2021-03-15 20:00] VITALS: BP 170/80
[2021-03-15] MEDS: LOSARTAN 25 MG (COZAAR) TAB PO SCH (20:37)
[2021-03-15 23:59] VITALS: BP 186/85
[2021-03-16 03:13] VITALS: BP 191/84
[2021-03-16] MEDS: NS IV 1000 ML 1,000 ML IV SCH ×2 (07:31→23:29)
[2021-03-16 08:11] VITALS: BP 162/73
[2021-03-16] MEDS: VENlafaxine XR 37.5 MG (EFFEXOR XR) CAP PO SCH ×2 (09:08→20:22)
[2021-03-16] MEDS: ALPRAZolam 0.25 MG (XANAX) TAB PO SCH ×2 (09:08→20:22)
[2021-03-16] MEDS: LOSARTAN 50 MG (COZAAR) TAB PO SCH (09:08)
[2021-03-16] MEDS: PANTOPRAZOLE 40 MG (PROTONIX) TAB PO SCH ×2 (09:08→20:22)
[2021-03-16] MEDS: ONDANSETRON 4 MG/2 ML (SDV) Z0FRAN IV PRN ×2 (09:23→20:45)
--- NOTE | 2021-03-16 09:24 | Cardiology Progress Note ---
Subjective Date Seen by Provider: Mar 16, 2021 Time Seen by Provider: 14:06 Subjective/Events-last exam Pt reports that she is having dizziness when she get up out of bed to use the bathroom. She says that she otherwise is doing fine and has no other concerns Review of Systems General: Chills; No Other (fever) HEENT: No Head Aches, No Visual Changes, No Eye Pain Pulmonary: No Dyspnea, No Cough, No Pleuritic Chest Pain Cardiovascular: Lt Headedness; No: Chest Pain, Palpitations Gastrointestinal: Constipation; No: Nausea, Vomiting, Abdominal Pain, Diarrhea Genitourinary: No Dysuria, No Frequency Neurological: No: Numbness, Change in speech, Other (tingling ) Objective-Cardiology Exam Last Set of Vital Signs Vital Signs 03/16/21 03/16/21 03/16/21 08:11 11:26 13:00 Temp 35.7 Pulse 60 Resp 14 B/P (MAP) 127/58 (81) Pulse Ox 97 O2 Delivery Room Air I&O Intake and Output 03/16/21 00:00 Intake Total 710 ml Output Total 700 ml Balance 10 ml Intake Oral 710 ml Output Urine Total 700 ml # Voids 3 General: Alert, Oriented X3, Cooperative HEENT: Atraumatic, PERRLA, EOMI Neck: Supple, No JVD Lungs: Clear to Auscultation, Normal Air Movement Heart: Regular Rate, Normal S1, Normal S2, No Murmurs Abdomen: Soft, No Tenderness Extremities: No Clubbing, No Cyanosis, Normal Pulses, No Tenderness/Swelling Skin: No Rashes Neuro: Normal Speech Psych/Mental Status: Mental Status NL, Mood NL Results Lab Laboratory Tests 03/16/21 10:40 A/P-Cardiology Admission Diagnosis Orthostatic hypotension Labile hypertension UTI Carotid stenosis Assessment/Plan Orthostatic hypotension, multiple falls, Underwent TTT 03/14/21, positive for vasodepressive syncope. Continues to have labile HTN, will stop Toprol XL and increase losartan to 50mg at this time, Continue on MATT hose. Hypertension, labile blood pressure, Increase losartan to 50mg and monitor tolerance and response. Sinus node dysfunction, borderline bradycardia. Continue to monitor UTI, Currently taking Ceftriaxone. Managed by Dr. Hernandez History of mild carotid stenosis, last ultrasound was done in 2019, continue to monitor Chronic back pain, managed by primary care physician Anxiety, for which she takes Xanax PRN and Venlafaxine QD Constipation, started on colace History of tonsillectomy, hysterectomy, laminectomy and lumbar fusion surgeries Supervisory-Addendum Brief Verification & Attestation Participated in pt care: history, MDM, physical Personally performed: exam, history, MDM, supervision of care Care discussed with: Medical Student Procedures: n/a Results interpretation: Verified all documentation Verification and Attestation of Medical Student E/M Service A medical student performed and documented this service in my presence. I reviewed and verified all information documented by the medical student and made modifications to such information, when appropriate. I personally performed the physical exam and medical decision making. Patient was seen at bedside sitting comfortably, still having orthostatic dizz iness. Has been bradycardic with a heart rate in the 50s. I decided to discontinue metoprolol and increase losartan to 50 mg daily, she has a baseline of systolic blood pressure 190. Continue with physical therapy and exercise. Alessandro Dela Cruz, Mar 16, 2021,14:06 SANDRA JETER Mar 16, 2021 09:24 ALESSANDRO DELA CRUZ MD Mar 16, 2021 14:07
[2021-03-16] MEDS ORDERED: LOSA50TA63 PO (09:51)
--- NOTE | 2021-03-16 10:23 | Progress Note ---
Subjective Date Seen by a Provider: Mar 16, 2021 Time Seen by a Provider: 10:17 Subjective/Events-last exam Fwup UTI, acute renal insufficiency, recurrent falls, confusion, chronic back pain, hypertensive urgency with orthostatic hypotension. Nursing reports patient is dizzy and nauseous and not eating. Very unsteady when gets up. Objective Exam Vital Signs Date Time Temp Pulse Resp B/P (MAP) Pulse Ox O2 Delivery O2 Flow Rate FiO2 03/16/21 08:11 35.6 58 14 162/73 (102) 95 Room Air 03/16/21 07:00 63 03/16/21 03:13 36.6 50 18 191/84 (119) 99 Room Air 03/16/21 01:00 50 03/15/21 23:59 36.3 52 18 186/85 (118) 97 Room Air 03/15/21 20:40 Room Air 03/15/21 20:00 36.5 58 18 170/80 (110) 95 Room Air 03/15/21 19:30 60 03/15/21 15:57 37.2 60 20 190/90 (123) 96 Room Air 03/15/21 12:54 56 03/15/21 12:00 36.5 57 14 140/70 (93) 96 Room Air I & O 03/16/21 07:00 Intake Total 710 ml Output Total 500 ml Balance 210 ml Capillary Refill : General Appearance: Mild Distress Respiratory: Lungs Clear Cardiovascular: Regular Rate, Rhythm, Systolic Murmur Gastrointestinal: normal bowel sounds, non tender, soft Neurologic/Psychiatric: Alert Results Lab Microbiology 03/12/21 Blood Culture - Preliminary, Resulted No growth Assessment/Plan Assessment/Plan Assess & Plan/Chief Complaint 1. UTI-- culture growing out E. coli--on rocephin 2. Acute Renal Insufficiency--improved after hydration but patient not eating or drinking well 3. Hypertensive Urgency with Orthostatic Hypotension--significantly positive tilt table, patient is very high risk for falling and lives alone so I recommen ded to both the patient and her sons that AL is needed, will look at SWING bed 4. Recurrent Falls/Weakness--PT and OT started--likely from orthostatic hypotension and is very high risk for recurrent falls 5. 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 Anxiety/Depression with recent worsening due to grieving--increased effexor dose 7. Plan was for DC to home today with HH but patient is having more dizziness and nausea today so not eating or drinking at all and is very unsteady when gets up Clinical Quality Measures Admission Status Admission Dx 1. Acute UTI with Altered Mental Status and Dyspepsia/Nausea--admit and start rocephin 2. Acute Renal Insufficiency--hydrate and monitor BUN/Cr 3. Nausea/Dyspepsia--start protonix and use zofran prn 4. Falls--Recurrent--start PT/OT, have been weaning off high dose gabapentin 5. Worsening Debility--may need to consider rehab 6. Altered Mental Status/Memory Loss--likely worsened by infection and anxiety and medications but also underlying dementia 7. Lumbar Degenerative Disc Disease--Uses tramadol with tylenol prn 8. Tremors--weaning off high dose gabapentin 9. Generalized Anxiety Disorder with recent depression/grieving--increase effexor ER to 37.5mg po BID, patient has been on [facility] xanax and this could be contributing to confusion so will decrease dose while inpatient and monitor YADIEL ARAUJO DO Mar 16, 2021 10:23
[2021-03-16 11:06] LABS: ALBUMIN 3.5 GM/DL (3.2-4.5); POTASSIUM 3.3 MMOL/L (3.6-5.0)
[2021-03-16 11:07] LABS: CALCIUM 8.9 MG/DL (8.5-10.1)
[2021-03-16 11:08] LABS: TOTAL PROTEIN 6.3 GM/DL (6.4-8.2)
[2021-03-16 11:10] LABS: BILIRUBIN,TOTAL 0.6 MG/DL (0.1-1.0)
[2021-03-16 11:12] LABS: CREATININE SERUM 1.08 MG/DL (0.60-1.30)
--- NOTE | 2021-03-16 11:16 | Physical Therapy Daily Note ---
PT Daily Note-Current Subjective Patient agrees to PT. Patient continues to c/o dizziness and nausea. Mental Status Patient Orientation: Person, Time, Situation Attachments: IV Transfers SCALE: Activities may be completed with or without assistive devices. 9-Qvdgbolohe-zkkpckg completes the activity by him/herself with no assistance from a helper. 5-Set-up or Clean-up Assistance-helper sets up or cleans up; patient completes activity. [place] assists only prior to or following the activity. 4-Supervision or Touching Assistance-helper provides verbal cues and/or touching/steadying and/or contact guard assistance as patient completes activity. Assistance may be provided throughout the activity or intermittently. 3-Partial/Moderate Assistance-helper does LESS THAN HALF the effort. [place] lifts, holds or supports trunk or limbs, but provides less than half the effort. 2-Substantial/Maximal Assistance-helper does MORE THAN HALF the effort. [place] lifts or holds trunk or limbs and provides more than half the effort. 7-Iihdlolvr-gwvmxp does ALL the effort. Patient does none of the effort to complete the activity. Or, the assistance of 2 or more helpers is required for the patient to complete the activity. If activity was not attempted, code reason: 7-Patient Refused. 9-Not Applicable-not attempted and the patient did not perform the activity before the current illness, exacerbation or injury. 10-Not Attempted due to Environmental Limitations-(lack of equipment, weather restraints, etc.). 88-Not Attempted due to Medical Conditions or Safety Concerns. Roll Left & Right (QC): 6 Lying to Sitting/Side of Bed(Q: 6 Sit to Stand (QC): 4 (SBA) Chair/Efl-lq-Qeddn Xfer(QC): 4 (SBA) Gait Training Does the Patient Walk?: Yes Distance: 250' Walk 10 feet (QC): 4 (SBA) Walk 50 ft with 2 Turns(QC): 4 (SBA) Walk 150 ft (QC): 4 (SBA) Gait Assistive Device: FWW safe and functional with no deviation Assessment Patient requested to sit in a chair multiple time during ambulation due to "bilateral LE weakness", however, patient was able, with encouragement, to complete ambulate distance without difficulty. Patient had a full breakfast tray and declined to eat. Nursing is aware. From a PT standpoint, for safety, patient requires 24/7 care to ensure patient needs are safely addressed and attained. SW notified. PT Song Lyricist Goals Assisted Goals PT Song Lyricist Goals Time Frame: Mar 24, 2021 Roll Left & Right (QC): 6 Sit to Lying (QC): 6 Lying-Sitting on Side/Bed(QC): 6 Sit to Stand (QC): 6 Chair/Pys-cq-Fxtyd Xfer(QC): 6 Toilet Transfer (QC): 6 Walk 10 feet (QC): 6 Walk 50ft with 2 Turns (QC): 6 Walk 150 ft (QC): 6 PT Plan Treatment/Plan Treatment Plan: Continue Plan of Care Treatment Plan: Bed Mobility, Education, Functional Activity Usman, Functional Strength, Gait, Safety, Therapeutic Exercise, Transfers Treatment Duration: Mar 24, 2021 Frequency: 6 times per week Estimated Hrs Per Day: .25 hour per day Patient and/or Family Agrees t: Yes Time/GCodes Time In: 1051 Time Out: 1106 Total Billed Treatment Time: 15 Total Billed Treatment 1 visit FA 15 min ANAID BOSE PT Mar 16, 2021 11:16
[2021-03-16 11:26] VITALS: BP 127/58
--- NOTE | 2021-03-16 11:54 | Occupational Ther Daily Note ---
OT Current Status-Daily Note Subjective Pt seen in room, up in recliner, agreeable to OT. No pain reported but pt did have periodic episodes of nausea. Appearance Alert, cooperative ADL-Treatment Therapy Code Descriptions/Definitions Functional [place] Measure: 0=Not Assessed/NA 4=Minimal Assistance 1=Total Assistance 5=Supervision or Setup 2=Maximal Assistance 6=Modified [place] 3=Moderate Assistance 7=Complete IndependenceSCALE: Activities may be completed with or without assistive devices. 6-Moraulboni-kqurslf completes the activity by him/herself with no assistance from a helper. 5-Set-up or Clean-up Assistance-helper sets up or cleans up; patient completes activity. [place] assists only prior to or following the activity. 4-Supervision or Touching Assistance-helper provides verbal cues and/or touching/steadying and/or contact guard assistance as patient completes activity. Assistance may be provided throughout the activity or intermittently. 3-Partial/Moderate Assistance-helper does LESS THAN HALF the effort. [place] lifts, holds or supports trunk or limbs, but provides less than half the effort. 2-Substantial/Maximal Assistance-helper does MORE THAN HALF the effort. [place] lifts or holds trunk or limbs and provides more than half the effort. 4-Fwbhfmbgu-iicqhi does ALL the effort. Patient does none of the effort to compl ete the activity. Or, the assistance of 2 or more helpers is required for the patient to complete the activity. If activity was not attempted, code reason: 7-Patient Refused. 9-Not Applicable-not attempted and the patient did not perform the activity before the current illness, exacerbation or injury. 10-Not Attempted due to Environmental Limitations-(lack of equipment, weather restraints, etc.). 88-Not Attempted due to Medical Conditions or Safety Concerns. Other Treatment Pt provided with yellow theraband for bilat UE exercises that she can do here or at home. Pt education on two exercises that she was able to return demonstrate but was not able to accurately track repetitions. Pt recalled that she has used bands before but could not remember any specific exercises. She was encouraged to use the bands at home after discharge. Pt had several bouts of nausea during treatment but no vomiting. She was anticipating discharge today. Pt left up in recliner, all needs met, friend present in room. Education OT Patient Education: Exercise program, Purpose of tx/functional activities Teaching Recipient: Patient Teaching Methods: Demonstration, Discussion Response to Teaching: Verbalize Understanding, Return Demonstration, Reinforcement Needed OT Fiber Designer Goals Fiber Designer Goals Time Frame: Mar 20, 2021 Eating (QC): 6 Oral Hygiene (QC): 6 Toileting Hygiene (QC): 6 Shower/Bathe Self (QC): 5 Upper Body Dressing (QC): 6 Lower Body Dressing (QC): 6 On/Off Footwear (QC): 6 Additional Goals: 1-Demonstrate ADL Tasks, 2-Verbalize Understanding, 3-ImproveStrength/Usman 1=Demonstrate adherence to instructed precautions during ADL tasks. 2=Patient will verbalize/demonstrate understanding of assistive devices/modifications for ADL. 3=Patient will improve strength/tolerance for activity to enable patient to perform ADL's. OT Education/Plan Discharge Recommendations Plan/Recommendations: Continue POC Treatment Plan/Plan of Care Patient would benefit from OT for education, treatment and training to promote independence in ADL's, mobility, safety and/or upper extremity function for ADL's. Plan of Care: ADL Retraining, Functional Mobility, UE Funct Exercise/Act Treatment Duration: Mar 20, 2021 Frequency: 5 times per week Estimated Hrs Per Day: .25 hour per day Agreement: Yes Rehab Potential: Fair Time/GCodes Start Time: 11:15 Stop Time: 11:26 Total Time Billed (hr/min): 11 Billed Treatment Time visit, 11 minutes exercise JEFFREY HENAO OT Mar 16, 2021 11:54
[2021-03-16] MEDS: MAGNESIUM 1 GM/100 ML IVPB 100 ML IV SCH ×2 (13:26→14:50)
[2021-03-16] MEDS: DOCUSATE SODIUM 100 MG (COLACE) CAP PO SCH ×2 (13:26→20:22)
[2021-03-16] MEDS: POTASSIUM CL 10MEQ/50ML IVPB 50 ML IV SCH ×2 (13:26→14:50)
[2021-03-16 15:27] VITALS: BP 170/75
[2021-03-16] MEDS: cefTRIAXone 1,000 MG in WATER (STERILE) FOR INJECTION 10 ML IV SCH (15:56)
[2021-03-16 19:18] VITALS: BP 156/80
[2021-03-16 23:41] VITALS: BP 142/76
[2021-03-17 04:08] VITALS: BP 165/80
[2021-03-17] MEDS: KCL 20 MEQ TAB (K-DUR) PO SCH (06:43)
[2021-03-17 06:59] LABS: HEMATOCRIT 35 % (35-52); HEMOGLOBIN 11.7 g/dL (11.5-16.0); MEAN CORPUSCULAR HEMOGLOBIN 33 pg (25-34); MEAN CORPUSCULAR HGB CONC 34 g/dL (32-36); MEAN CORPUSCULAR VOLUME 97 fL (80-99); MEAN PLATELET VOLUME 10.6 fL (9.0-12.2); PLATELET COUNT 189 10^3/uL (130-400); WHITE BLOOD COUNT 6.6 10^3/uL (4.3-11.0)
[2021-03-17 07:09] LABS: POTASSIUM 3.6 MMOL/L (3.6-5.0)
[2021-03-17 07:11] LABS: CALCIUM 8.6 MG/DL (8.5-10.1)
[2021-03-17 07:15] LABS: CREATININE SERUM 1.17 MG/DL (0.60-1.30)
[2021-03-17 07:17] LABS: MAGNESIUM 1.8 MG/DL (1.6-2.4)
[2021-03-17 07:45] VITALS: BP 187/80
[2021-03-17] MEDS: DOCUSATE SODIUM 100 MG (COLACE) CAP PO SCH ×2 (08:50→21:09)
[2021-03-17] MEDS: LOSARTAN 50 MG (COZAAR) TAB PO SCH (08:51)
[2021-03-17] MEDS: VITAMIN D3 125 MCG (5,000 UNITS) CAPSULE PO SCH (08:51)
[2021-03-17] MEDS: ALPRAZolam 0.25 MG (XANAX) TAB PO SCH ×2 (08:51→21:09)
[2021-03-17] MEDS: PANTOPRAZOLE 40 MG (PROTONIX) TAB PO SCH ×2 (08:52→21:09)
[2021-03-17] MEDS: VENlafaxine XR 37.5 MG (EFFEXOR XR) CAP PO SCH ×2 (08:52→21:09)
[2021-03-17] MEDS: MELOXICAM 7.5 MG (MOBIC) TABLET PO SCH (08:52)
--- NOTE | 2021-03-17 08:56 | Physical Therapy Daily Note ---
PT Daily Note-Current Subjective Patient lying supine in bed upon PT arrival, agreeable to treatment but notes the backs of her legs are hurting (points to hamstrings). Patient rates pain at 6/10 while at rest. Mental Status Patient Orientation: Person, Place, Time, Situation Transfers SCALE: Activities may be completed with or without assistive devices. 9-Blohsmogsb-iubwctx completes the activity by him/herself with no assistance from a helper. 5-Set-up or Clean-up Assistance-helper sets up or cleans up; patient completes activity. [place] assists only prior to or following the activity. 4-Supervision or Touching Assistance-helper provides verbal cues and/or touching/steadying and/or contact guard assistance as patient completes activity. Assistance may be provided throughout the activity or intermittently. 3-Partial/Moderate Assistance-helper does LESS THAN HALF the effort. [place] lifts, holds or supports trunk or limbs, but provides less than half the effort. 2-Substantial/Maximal Assistance-helper does MORE THAN HALF the effort. [place] lifts or holds trunk or limbs and provides more than half the effort. 1-Bsngbwmvu-ifwibu does ALL the effort. Patient does none of the effort to complete the activity. Or, the assistance of 2 or more helpers is required for the patient to complete the activity. If activity was not attempted, code reason: 7-Patient Refused. 9-Not Applicable-not attempted and the patient did not perform the activity before the current illness, exacerbation or injury. 10-Not Attempted due to Environmental Limitations-(lack of equipment, weather restraints, etc.). 88-Not Attempted due to Medical Conditions or Safety Concerns. Roll Left & Right (QC): 4 Sit to Lying (QC): 4 Lying to Sitting/Side of Bed(Q: 4 Sit to Stand (QC): 4 Chair/Adf-bn-Airur Xfer(QC): 4 Gait Training Does the Patient Walk?: Yes Distance: 150 feet Walk 10 feet (QC): 4 Walk 50 ft with 2 Turns(QC): 4 Walk 150 ft (QC): 4 Gait Persons Needed: 1 Gait Assistive Device: FWW Assessment Current Status: Fair Progress Patient performs all observed bed mobility and transfers with CGA and verbal cues for safety. Initially upon sitting up, patient partially loses her balance backwards, but is able to stop herself with I. Patient reports feeling ill upon sitting up and requests a few minutes to sit and rest. Patient ambulates 150 feet with FWW, with CGA and verbal cues for safety, progression, to avoid obstacles and for posture. Patient in chair post treatment with all needs met, nursing notified, call light in reach and son in the room. PT Thread Checker Goals Care Home Goals PT Thread Checker Goals Time Frame: Mar 24, 2021 Roll Left & Right (QC): 6 Sit to Lying (QC): 6 Lying-Sitting on Side/Bed(QC): 6 Sit to Stand (QC): 6 Chair/Evi-kj-Boiat Xfer(QC): 6 Toilet Transfer (QC): 6 Walk 10 feet (QC): 6 Walk 50ft with 2 Turns (QC): 6 Walk 150 ft (QC): 6 PT Plan Treatment/Plan Treatment Plan: Continue Plan of Care Treatment Plan: Bed Mobility, Education, Functional Activity [place]man, Functional Strength, Gait, Safety, Therapeutic Exercise, Transfers Treatment Duration: Mar 24, 2021 Frequency: 6 times per week Estimated Hrs Per Day: .25 hour per day Patient and/or Family Agrees t: Yes Safety Risks/Education Patient Education: Gait Training, Transfer Techniques, Safety Issues Teaching Recipient: Patient, Family Teaching Methods: Demonstration, Discussion Response to Teaching: Verbalize Understanding, Return Demonstration Time/GCodes Time In: 0835 Time Out: 0850 Total Billed Treatment Time: 15 Total Billed Treatment Visit, ALAN Ram PT Mar 17, 2021 08:55
--- NOTE | 2021-03-17 10:29 | Progress Note ---
Subjective Subjective Date Seen by Provider: Mar 17, 2021 Time Seen by Provider: 10:28 80 yo F - no overnight events. Pt denies any issues except she thinks it has been 7 days since her last bowel movement. She would like some medication to help with constipation. Review of Systems General: Chills; No Other HEENT: No Head Aches, No Visual Changes, No Eye Pain Pulmonary: No Dyspnea, No Cough, No Pleuritic Chest Pain Cardiovascular: Lt Headedness; No: Chest Pain, Palpitations Gastrointestinal: Constipation; No: Nausea, Vomiting, Abdominal Pain, Diarrhea Genitourinary: No Dysuria, No Frequency Neurological: No: Numbness, Change in speech, Other (tingling ) Objective Exam Vital Signs Vital Signs Date Time Temp Pulse Resp B/P (MAP) Pulse Ox O2 Delivery O2 Flow Rate FiO2 03/17/21 07:45 37.0 62 14 187/80 (115) 97 Room Air 03/17/21 07:00 57 03/17/21 04:08 36.4 62 18 165/80 (108) 97 Room Air 03/17/21 00:52 60 03/16/21 23:41 36.2 60 16 142/76 (98) 98 Room Air 03/16/21 20:00 97 Room Air 03/16/21 19:18 35.6 62 18 156/80 (105) 97 Room Air 03/16/21 19:00 60 03/16/21 15:27 35.9 61 16 170/75 (106) 94 Room Air 03/16/21 13:00 60 03/16/21 11:26 35.7 64 14 127/58 (81) 97 I & O 03/17/21 07:00 Intake Total 2032 ml Balance 2032 ml General Appearance: No Apparent Distress Eyes: Bilateral Eye Normal Inspection, Bilateral Eye PERRL, Bilateral Eye EOMI HEENT: PERRL/EOMI; No Photophobia Neck: Supple; No Carotid Bruit Respiratory: Lungs Clear Cardiovascular: Regular Rate, Rhythm, Systolic Murmur Gastrointestinal: Non Tender, Soft, Tenderness (epigastric and suprapubic) Back: Normal Inspection, No CVA Tenderness, No Vertebral Tenderness Extremity: Non Tender, No Calf Tenderness, No Pedal Edema Neurologic/Psychiatric: Alert Skin: Warm/Dry Lymphatic: No Adenopathy Results Lab Laboratory Tests 03/16/21 10:40: Sodium Level 138, Potassium Level 3.3L, Chloride Level 106, Carbon Dioxide Level 23, Anion Gap 9, Blood Urea Nitrogen 16, Creatinine 1.08, Estimat Glomerular Filtration Rate 49, BUN/Creatinine Ratio 15, Glucose Level 98, Calcium Level 8.9, Corrected Calcium 9.3, Magnesium Level 1.4L, Total Bilirubin 0.6, Aspartate Amino Transf (AST/SGOT) 33, Alanine Aminotransferase (ALT/SGPT) 19, Alkaline Phosphatase 72, Total Protein 6.3L, Albumin 3.5 03/17/21 06:37: Sodium Level 141, Potassium Level 3.6, Chloride Level 108H, Carbon Dioxide Level 22, Anion Gap 11, Blood Urea Nitrogen 18, Creatinine 1.17, Estimat Glomerular Filtration Rate 44, BUN/Creatinine Ratio 15, Glucose Level 98, Calcium Level 8.6, Magnesium Level 1.8, White Blood Count 6.6, Red Blood Count 3.59L, Hemoglobin 11.7, Hematocrit 35, Mean Corpuscular Volume 97, Mean Corpuscular Hemoglobin 33, Mean Corpuscular Hemoglobin Concent 34, Red Cell Distribution Width 12.7, Platelet Count 189, Mean Platelet Volume 10.6 Microbiology 03/12/21 Blood Culture - Preliminary, Resulted No growth Assessment/Plan Assessment/Plan Assessment and Plan 03/17/21 UTI resolving with rocephin. -working on constipation with colace- may add on miralax if no results by tomorrow. Poor po intake does not help. -potassium, magnesium normal- -daily magnesium will help with her constipation. Dr. Quinn adjusting medications to help the orthostatic hypotension. -Awaiting placement. CM working on this with sons and facilities. Problems: (1) Orthostatic hypotension (2) Hypokalemia (3) Hypomagnesemia (4) JUAN (acute kidney injury) (5) UTI (urinary tract infection) (6) Altered mental status (7) Constipation DANIEL CHESTER MD Mar 17, 2021 10:29
[2021-03-17 11:20] VITALS: BP 165/69
--- NOTE | 2021-03-17 11:44 | Cardiology Progress Note ---
Subjective Date Seen by Provider: Mar 17, 2021 Time Seen by Provider: 11:41 Subjective/Events-last exam Patient was seen at bedside, sitting comfortably, denied any chest pain Review of Systems General: No Chills, No Night Sweats; Fatigue; No Malaise, No Appetite, No Other HEENT: No Head Aches, No Visual Changes, No Eye Pain, No Ear Pain, No Dysphasia, No Sinus Congestion, No Post Nasal Drip, No Sore Throat, No Other Pulmonary: No Dyspnea, No Cough, No Pleuritic Chest Pain, No Other Cardiovascular: No: Chest Pain, Palpitations, Orthopnea, Paroxysmal Noc. Dyspnea, Edema, Lt Headedness, Other Objective-Cardiology Exam Last Set of Vital Signs Vital Signs 03/17/21 11:20 Temp 37.0 Pulse 69 Resp 20 B/P (MAP) 165/69 (101) Pulse Ox 98 O2 Delivery Room Air I&O Intake and Output 03/17/21 00:00 Intake Total 1932 ml Output Total 400 ml Balance 1532 ml Intake Oral 1622 ml IV Total 310 ml Output Urine Total 400 ml # Voids 4 General: Alert, Oriented X3, Cooperative HEENT: Atraumatic, PERRLA, EOMI Neck: Supple, No JVD Lungs: Clear to Auscultation, Normal Air Movement Heart: Regular Rate, Normal S1, Normal S2, No Murmurs Abdomen: Soft, No Tenderness Extremities: No Clubbing, No Cyanosis, Normal Pulses, No Tenderness/Swelling Skin: No Rashes Neuro: Normal Speech Psych/Mental Status: Mental Status NL, Mood NL Results Lab Laboratory Tests 03/17/21 06:37 A/P-Cardiology Admission Diagnosis Orthostatic hypotension Labile hypertension UTI Carotid stenosis Assessment/Plan Orthostatic hypotension, multiple falls, Underwent TTT 03/14/21, positive for vasodepressive syncope. Continues to have labile HTN, feeling better today, I have DC'd Toprol. Continue losartan 50 and monitor Labile hypertension, continue to monitor blood pressure Sinus node dysfunction, borderline bradycardia. Continue to monitor UTI, Currently taking Ceftriaxone. Managed by Dr. Hernandez History of mild carotid stenosis, last ultrasound was done in 2019, continue to monitor Chronic back pain, managed by primary care physician Anxiety, for which she takes Xanax PRN and Venlafaxine QD Constipation, started on colace History of tonsillectomy, hysterectomy, laminectomy and lumbar fusion surgeries DIANE DELA CRUZ MD Mar 17, 2021 11:44
[2021-03-17] MEDS: NS IV 1000 ML 1,000 ML IV SCH ×2 (14:32→16:14)
[2021-03-17 16:00] VITALS: BP 180/70
[2021-03-17 20:00] VITALS: BP 189/82
[2021-03-17 23:50] VITALS: BP 190/70
[2021-03-18 04:09] VITALS: BP 165/71
[2021-03-18] MEDS: KCL 20 MEQ TAB (K-DUR) PO SCH (05:23)
[2021-03-18 08:38] VITALS: BP 128/68
[2021-03-18] MEDS: PANTOPRAZOLE 40 MG (PROTONIX) TAB PO SCH ×2 (08:44→20:06)
[2021-03-18] MEDS: VITAMIN D3 125 MCG (5,000 UNITS) CAPSULE PO SCH (08:44)
[2021-03-18] MEDS: LOSARTAN 50 MG (COZAAR) TAB PO SCH (08:44)
[2021-03-18] MEDS: DOCUSATE SODIUM 100 MG (COLACE) CAP PO SCH ×2 (08:44→20:06)
[2021-03-18] MEDS: VENlafaxine XR 37.5 MG (EFFEXOR XR) CAP PO SCH ×2 (08:44→20:06)
[2021-03-18] MEDS: MELOXICAM 7.5 MG (MOBIC) TABLET PO SCH (08:45)
[2021-03-18] MEDS: ALPRAZolam 0.25 MG (XANAX) TAB PO SCH ×2 (08:45→20:06)
--- NOTE | 2021-03-18 10:27 | Cardiology Progress Note ---
Subjective Date Seen by Provider: Mar 18, 2021 Time Seen by Provider: 10:25 Subjective/Events-last exam Patient is sitting in a chair, feeling better, still constipated, still com plaining of nausea and orthostatic dizziness Review of Systems General: No Chills, No Night Sweats; Fatigue, Malaise; No Appetite, No Other HEENT: No Head Aches, No Visual Changes, No Eye Pain, No Ear Pain, No Dysphasia, No Sinus Congestion, No Post Nasal Drip, No Sore Throat, No Other Pulmonary: No Dyspnea, No Cough, No Pleuritic Chest Pain, No Other Cardiovascular: No: Chest Pain, Palpitations, Orthopnea, Paroxysmal Noc. Dyspnea, Edema, Lt Headedness, Other Objective-Cardiology Exam Last Set of Vital Signs Vital Signs 03/18/21 08:38 Temp 36.4 Pulse 76 Resp 16 B/P (MAP) 128/68 (88) Pulse Ox 96 O2 Delivery Room Air I&O Intake and Output 03/18/21 00:00 Intake Total 1260 ml Output Total 500 ml Balance 760 ml Intake Oral 1260 ml Output Urine Total 500 ml # Voids 5 General: Alert, Oriented X3, Cooperative HEENT: Atraumatic, PERRLA, EOMI Neck: Supple, No JVD Lungs: Clear to Auscultation, Normal Air Movement Heart: Regular Rate, Normal S1, Normal S2, No Murmurs Abdomen: Soft, No Tenderness Extremities: No Clubbing, No Cyanosis, Normal Pulses, No Tenderness/Swelling Skin: No Rashes Neuro: Normal Speech Psych/Mental Status: Mental Status NL, Mood NL Results Lab Laboratory Tests Test 03/17/21 12:30 Range/Units Coronavirus (COVID-19)(PCR) Negative Negative A/P-Cardiology Admission Diagnosis Orthostatic hypotension Labile hypertension UTI Carotid stenosis Assessment/Plan Orthostatic hypotension, multiple falls, Underwent TTT 03/14/21, positive for vasodepressive syncope. Continues to have labile HTN, Toprol was discontinued to persistent bradycardia, I increase losartan to 50 mg daily and she appears to be tolerating it well. Labile hypertension, difficult to control, blood pressure at 11 PM was 190/70 and this morning 128/68. Maintained on minimal dose of losartan. Using MATT hose. Continue to monitor Sinus node dysfunction, borderline bradycardia. Continue to monitor UTI, Currently taking Ceftriaxone. Managed by Dr. Hernandez History of mild carotid stenosis, last ultrasound was done in 2019, continue to monitor Chronic back pain, managed by primary care physician Anxiety, for which she takes Xanax PRN and Venlafaxine QD Constipation, started on colace History of tonsillectomy, hysterectomy, laminectomy and lumbar fusion surgeries DIANE DELA CRUZ MD Mar 18, 2021 10:27
--- NOTE | 2021-03-18 11:38 | Progress Note ---
Subjective Subjective Date Seen by Provider: Mar 18, 2021 Time Seen by Provider: 11:36 80 yo F - no overnight events. Still no bowel movements. She is cold this AM and wanted a warm blanket- she was provided a warm blanket and reported doing much better. She does note some mild discomfort in her back. Review of Systems General: Chills (cold); No Other HEENT: No Head Aches, No Visual Changes, No Eye Pain Pulmonary: No Dyspnea, No Cough, No Pleuritic Chest Pain Cardiovascular: Lt Headedness; No: Chest Pain, Palpitations Gastrointestinal: Constipation; No: Nausea, Vomiting, Abdominal Pain, Diarrhea Genitourinary: No Dysuria, No Frequency Neurological: Other (tingling ); No: Numbness, Change in speech Objective Exam Vital Signs Vital Signs Date Time Temp Pulse Resp B/P (MAP) Pulse Ox O2 Delivery O2 Flow Rate FiO2 03/18/21 08:38 36.4 76 16 128/68 (88) 96 Room Air 03/18/21 08:00 97 Room Air 03/18/21 07:00 59 03/18/21 04:09 36.3 63 16 165/71 (102) 98 Room Air 03/18/21 01:00 80 03/17/21 23:50 36.6 62 18 190/70 (110) 98 Room Air 03/17/21 20:53 97 Room Air 03/17/21 20:00 37.1 64 20 189/82 (117) 95 Room Air 03/17/21 19:00 70 03/17/21 16:00 37.0 59 20 180/70 (106) 96 Room Air 03/17/21 13:00 58 I & O 03/18/21 07:00 Intake Total 1360 ml Output Total 500 ml Balance 860 ml General Appearance: No Apparent Distress Eyes: Bilateral Eye Normal Inspection, Bilateral Eye PERRL, Bilateral Eye EOMI HEENT: PERRL/EOMI; No Photophobia Neck: Supple; No Carotid Bruit Respiratory: Lungs Clear Cardiovascular: Regular Rate, Rhythm, Systolic Murmur Gastrointestinal: Non Tender, Soft, Tenderness (epigastric and suprapubic) Back: Normal Inspection, No CVA Tenderness, No Vertebral Tenderness Extremity: Non Tender, No Calf Tenderness, No Pedal Edema Neurologic/Psychiatric: Alert Skin: Warm/Dry Lymphatic: No Adenopathy Results Lab Laboratory Tests 03/17/21 12:30: Coronavirus (COVID-19)(PCR) Negative Microbiology 03/12/21 Blood Culture - Final, Complete No growth Assessment/Plan Assessment/Plan Assessment and Plan 03/17/21 UTI resolving with rocephin. -working on constipation with colace- may add on miralax if no results by randee hickey. Poor po intake does not help. -potassium, magnesium normal- -daily magnesium will help with her constipation. Dr. Quinn adjusting medications to help the orthostatic hypotension. 03/18/21- will add on daily magnesium. Do a one time dose of miralax. -Awaiting placement. CM working on this with sons and facilities. Problems: (1) Orthostatic hypotension (2) Hypokalemia (3) Hypomagnesemia (4) JUAN (acute kidney injury) (5) UTI (urinary tract infection) (6) Altered mental status (7) Constipation DANIEL CHESTER MD Mar 18, 2021 11:38
[2021-03-18 11:41] VITALS: BP 150/90
[2021-03-18] MEDS ORDERED: polyethylene glycoL POWDER 17 GM (MIRALAX) PACK PO ONE (11:45)
[2021-03-18] MEDS: MAGNESIUM OXIDE (MAG-OX)400 MG TAB PO SCH ×2 (12:24→17:48)
[2021-03-18 16:00] VITALS: BP 200/90
[2021-03-18] MEDS: NS IV 1000 ML 1,000 ML IV SCH (17:48)
[2021-03-18 20:00] VITALS: BP 200/85
[2021-03-19] VITALS: BP 175/78
[2021-03-19 04:08] VITALS: BP 173/89
[2021-03-19] MEDS: KCL 20 MEQ TAB (K-DUR) PO SCH (05:25)
[2021-03-19] MEDS: NS IV 1000 ML 1,000 ML IV SCH ×2 (05:26→17:30)
--- NOTE | 2021-03-19 07:51 | Cardiology Progress Note ---
Subjective Date Seen by Provider: Mar 19, 2021 Time Seen by Provider: 10:54 Subjective/Events-last exam Pt reports that she is still having episodes of dizziness when she gets up out of bed and complaining of constipation Review of Systems General: Chills, Fatigue; No Other (fever) HEENT: No Head Aches, No Visual Changes, No Eye Pain Pulmonary: No Dyspnea, No Cough Cardiovascular: Lt Headedness; No: Chest Pain, Palpitations Gastrointestinal: Constipation; No: Nausea, Vomiting, Abdominal Pain, Diarrhea Genitourinary: No Dysuria, No Frequency Neurological: No: Weakness, Numbness Objective-Cardiology Exam Last Set of Vital Signs Vital Signs 03/19/21 08:00 Temp 37.0 Pulse 64 Resp 20 B/P (MAP) 191/83 (119) Pulse Ox 98 O2 Delivery Room Air I&O Intake and Output 03/18/21 23:59 Intake Total 2030 ml Output Total 650 ml Balance 1380 ml Intake Oral 1030 ml IV Total 1000 ml Output Urine Total 650 ml # Voids 6 General: Alert, Oriented X3, Cooperative HEENT: Atraumatic, PERRLA, EOMI Neck: Supple, No JVD Lungs: Clear to Auscultation, Normal Air Movement Heart: Regular Rate, Normal S1, Normal S2, No Murmurs Abdomen: Soft, No Tenderness Extremities: No Clubbing, No Cyanosis, Normal Pulses, No Tenderness/Swelling Skin: No Rashes Neuro: Normal Speech Psych/Mental Status: Mental Status NL, Mood NL A/P-Cardiology Admission Diagnosis Orthostatic hypotension Labile hypertension UTI Carotid stenosis Assessment/Plan Orthostatic hypotension, multiple falls, Underwent TTT 03/14/21, positive for vasodepressive syncope. Continues to have labile HTN, Toprol was discontinued due to persistent bradycardia, Taking losartan to 50 mg daily and she appears to be tolerating it well. Labile hypertension, difficult to control, blood pressure at 173/89 this mornin g. Maintained on minimal dose of losartan. Using MATT hose. Continue to monitor. Sinus node dysfunction, borderline bradycardia. Continue to monitor UTI, Has finished taking Ceftriaxone. Managed by Dr. Hernandez Constipation, started on Colace and MiraLAX, I will give her Dulcolax suppository and evaluate response History of mild carotid stenosis, last ultrasound was done in 2019, continue to monitor Chronic back pain, managed by primary care physician Anxiety, for which she takes Xanax PRN and Venlafaxine QD History of tonsillectomy, hysterectomy, laminectomy and lumbar fusion surgeries Supervisory-Addendum Brief Verification & Attestation Participated in pt care: history, MDM, physical Personally performed: exam, history, MDM, supervision of care Care discussed with: Medical Student Procedures: n/a Results interpretation: Verified all documentation Verification and Attestation of Medical Student E/M Service A medical student performed and documented this service in my presence. I reviewed and verified all information documented by the medical student and made modifications to such information, when appropriate. I personally performed the physical exam and medical decision making. I made few adjustment to the note using italic font Alessandro Dela Cruz, Mar 19, 2021,10:53 SANDRA JETER Mar 19, 2021 07:51 ALESSANDRO DELA CRUZ MD Mar 19, 2021 10:54
[2021-03-19 08:00] VITALS: BP 191/83
[2021-03-19] MEDS: DOCUSATE SODIUM 100 MG (COLACE) CAP PO SCH ×2 (08:31→20:11)
[2021-03-19] MEDS: ALPRAZolam 0.25 MG (XANAX) TAB PO SCH ×2 (08:31→21:17)
[2021-03-19] MEDS: MAGNESIUM OXIDE (MAG-OX)400 MG TAB PO SCH ×2 (08:31→17:30)
[2021-03-19] MEDS: MELOXICAM 7.5 MG (MOBIC) TABLET PO SCH (08:31)
[2021-03-19] MEDS: PANTOPRAZOLE 40 MG (PROTONIX) TAB PO SCH ×2 (08:31→21:17)
[2021-03-19] MEDS: LOSARTAN 50 MG (COZAAR) TAB PO SCH (08:32)
[2021-03-19] MEDS: VENlafaxine XR 37.5 MG (EFFEXOR XR) CAP PO SCH ×2 (08:32→21:18)
[2021-03-19] MEDS: VITAMIN D3 125 MCG (5,000 UNITS) CAPSULE PO SCH (08:32)
--- NOTE | 2021-03-19 10:10 | Physical Therapy Daily Note ---
PT Daily Note-Current Subjective Patient agrees to PT. Appearance appears to be in no distress/smiling Mental Status Attachments: IV Transfers SCALE: Activities may be completed with or without assistive devices. 7-Fdsrlqxupg-lmflsja completes the activity by him/herself with no assistance from a helper. 5-Set-up or Clean-up Assistance-helper sets up or cleans up; patient completes activity. [place] assists only prior to or following the activity. 4-Supervision or Touching Assistance-helper provides verbal cues and/or touching/steadying and/or contact guard assistance as patient completes activity. Assistance may be provided throughout the activity or intermittently. 3-Partial/Moderate Assistance-helper does LESS THAN HALF the effort. [place] lifts, holds or supports trunk or limbs, but provides less than half the effort. 2-Substantial/Maximal Assistance-helper does MORE THAN HALF the effort. [place] lifts or holds trunk or limbs and provides more than half the effort. 8-Gcbpfepdi-fytbvp does ALL the effort. Patient does none of the effort to complete the activity. Or, the assistance of 2 or more helpers is required for the patient to complete the activity. If activity was not attempted, code reason: 7-Patient Refused. 9-Not Applicable-not attempted and the patient did not perform the activity before the current illness, exacerbation or injury. 10-Not Attempted due to Environmental Limitations-(lack of equipment, weather restraints, etc.). 88-Not Attempted due to Medical Conditions or Safety Concerns. Sit to Lying (QC): 5 Lying to Sitting/Side of Bed(Q: 5 Sit to Stand (QC): 4 Chair/Rkm-cn-Zarxd Xfer(QC): 7 Gait Training Does the Patient Walk?: Yes Distance: 150' Walk 10 feet (QC): 4 Walk 50 ft with 2 Turns(QC): 4 Walk 150 ft (QC): 4 Gait Assistive Device: FWW SBA for safety with functional gait sequence/trunk flexed posture Assessment Patient c/o nausea with activity and adamantly declined to sit in recliner and returned to bed. PT Color Tester Goals Color Tester Goals PT Senior Care Goals Time Frame: Mar 24, 2021 Roll Left & Right (QC): 6 Sit to Lying (QC): 6 Lying-Sitting on Side/Bed(QC): 6 Sit to Stand (QC): 6 Chair/Rkc-sp-Ylqhl Xfer(QC): 6 Toilet Transfer (QC): 6 Walk 10 feet (QC): 6 Walk 50ft with 2 Turns (QC): 6 Walk 150 ft (QC): 6 PT Plan Treatment/Plan Treatment Plan: Continue Plan of Care Treatment Plan: Bed Mobility, Education, Functional Activity [place]man, Functional Strength, Gait, Safety, Therapeutic Exercise, Transfers Treatment Duration: Mar 24, 2021 Frequency: 6 times per week Estimated Hrs Per Day: .25 hour per day Patient and/or Family Agrees t: Yes Time/GCodes Time In: 902 Time Out: 912 Total Billed Treatment Time: 10 Total Billed Treatment 1 visit FA 10 min ANAID BOSE PT Mar 19, 2021 10:10
--- NOTE | 2021-03-19 10:45 | Occupational Ther Daily Note ---
OT Current Status-Daily Note Subjective Pt. dozing in bed, easy to awaken. Pt. agrees to therapy. Mental Status/Objective Patient Orientation: Person, Place, Time, Situation ADL-Treatment Pt. supine to sit EOB independently. Pt. BP in supine: 194/86 HR 60, sit 127/59 HR 72. Pt. ambu. using FWW with SBA. Pt. questioned what to do while sitting in front of sink. Pt. c/o of hand shakiness. Pt. cleansed face/upper body sitting at sink after set up, pt. declined lower body cleansing. Pt. performed oral hygiene sitting at sink. Pt. took a rest break between washing up/oral hygiene. Pt. stood, needed to sit down before ambu. to recliner using FWW SBA, after activity BP 124/69 HR 85. Pt. seated in recliner able to set up own breakfast. After session pt. in recliner call light/phone in reach. All needs met in room. Therapy Code Descriptions/Definitions Functional [place] Measure: 0=Not Assessed/NA 4=Minimal Assistance 1=Total Assistance 5=Supervision or Setup 2=Maximal Assistance 6=Modified [place] 3=Moderate Assistance 7=Complete IndependenceSCALE: Activities may be completed with or without assistive devices. 1-Qbdrdcfxyq-xhwbpen completes the activity by him/herself with no assistance from a helper. 5-Set-up or Clean-up Assistance-helper sets up or cleans up; patient completes activity. [place] assists only prior to or following the activity. 4-Supervision or Touching Assistance-helper provides verbal cues and/or touching/steadying and/or contact guard assistance as patient completes activity. Assistance may be provided throughout the activity or intermittently. 3-Partial/Moderate Assistance-helper does LESS THAN HALF the effort. [place] lifts, holds or supports trunk or limbs, but provides less than half the effort. 2-Substantial/Maximal Assistance-helper does MORE THAN HALF the effort. [place] lifts or holds trunk or limbs and provides more than half the effort. 2-Jxawvbkbm-ycnxxm does ALL the effort. Patient does none of the effort to complete the activity. Or, the assistance of 2 or more helpers is required for the patient to complete the activity. If activity was not attempted, code reason: 7-Patient Refused. 9-Not Applicable-not attempted and the patient did not perform the activity before the current illness, exacerbation or injury. 10-Not Attempted due to Environmental Limitations-(lack of equipment, weather restraints, etc.). 88-Not Attempted due to Medical Conditions or Safety Concerns. Oral Hygiene (QC): 6 Bathing Location: L Arm, R Arm, L Upper Leg, R Upper Leg, Chest OT Correction Goals Psychotherapist Goals Time Frame: Mar 20, 2021 Eating (QC): 6 Oral Hygiene (QC): 6 Toileting Hygiene (QC): 6 Shower/Bathe Self (QC): 5 Upper Body Dressing (QC): 6 Lower Body Dressing (QC): 6 On/Off Footwear (QC): 6 Additional Goals: 1-Demonstrate ADL Tasks, 2-Verbalize Understanding, 3- ImproveStrength/[place] 1=Demonstrate adherence to instructed precautions during ADL tasks. 2=Patient will verbalize/demonstrate understanding of assistive d evices/modifications for ADL. 3=Patient will improve strength/tolerance for activity to enable patient to perform ADL's. OT Education/Plan Problem List/Assessment Assessment: Decreased Activ Tolerance, Decreased Safety Aware, Impaired Coordination, Impaired Self-Care Skills Discharge Recommendations Plan/Recommendations: Continue POC Treatment Plan/Plan of Care Patient would benefit from OT for education, treatment and training to promote independence in ADL's, mobility, safety and/or upper extremity function for ADL's. Plan of Care: ADL Retraining, Functional Mobility, UE Funct Exercise/Act Treatment Duration: Mar 20, 2021 Frequency: 5 times per week Estimated Hrs Per Day: .25 hour per day Agreement: Yes Rehab Potential: Fair Time/GCodes Start Time: 09:36 Stop Time: 10:15 Total Time Billed (hr/min): 36 Billed Treatment Time 1 visit- ADL 3 MARISA CABRALES ANGELIA Mar 19, 2021 10:45
[2021-03-19 12:00] VITALS: BP 131/74
[2021-03-19] MEDS ORDERED: BISACODYL 10 MG SUPP (DULCOLAX) PR ONE (12:00)
[2021-03-19 16:00] VITALS: BP 194/88
[2021-03-19 17:18] LABS: BILIRUBIN,URINE NEGATIVE (NEGATIVE); CLARITY,URINE CLEAR; COLOR,URINE YELLOW; GLUCOSE, URINE (UA) NEGATIVE (NEGATIVE); KETONES,URINE NEGATIVE (NEGATIVE); LEUKOCYTE ESTERASE ,URINE NEGATIVE (NEGATIVE); NITRITE,URINE NEGATIVE (NEGATIVE); PH,URINE 6.5 (5-9); PROTEIN,URINE 3+ (NEGATIVE)
[2021-03-19 17:43] LABS: BACTERIA,URINE TRACE /HPF; RBC,URINE 0-2 /HPF; WBC,URINE 0-2 /HPF
[2021-03-19 17:44] LABS: AMORPHOUS SEDIMENT,UR FEW AMOR URATES /LPF
--- NOTE | 2021-03-19 18:27 | Progress Note ---
Subjective Date Seen by a Provider: Mar 19, 2021 Time Seen by a Provider: 18:18 Subjective/Events-last exam Fwup UTI, acute renal insufficiency, recurrent falls, confusion, chronic back pain, hypertensive urgency with orthostatic hypotension, hypokalemia, hypomagnesemia. Nausea not as bad but not eating well and wanting to stay in bed. Objective Exam Vital Signs Date Time Temp Pulse Resp B/P (MAP) Pulse Ox O2 Delivery O2 Flow Rate FiO2 03/19/21 16:00 36.9 64 20 194/88 (123) 98 Room Air 03/19/21 12:50 74 03/19/21 12:00 36.8 77 20 131/74 (93) 97 Room Air 03/19/21 08:00 37.0 64 20 191/83 (119) 98 Room Air 03/19/21 08:00 Room Air 03/19/21 06:38 61 03/19/21 04:08 36.6 63 17 173/89 (117) 97 Room Air 03/19/21 01:00 51 03/19/21 00:00 36.2 61 17 175/78 (110) 97 Room Air 03/18/21 20:44 97 Room Air 03/18/21 20:00 36.7 63 18 200/85 (123) 95 Room Air 03/18/21 19:11 70 I & O 03/19/21 07:00 Intake Total 1730 ml Output Total 1200 ml Balance 530 ml Capillary Refill : General Appearance: No Apparent Distress Respiratory: Lungs Clear Cardiovascular: Regular Rate, Rhythm Extremity: Non Tender, No Calf Tenderness, No Pedal Edema Neurologic/Psychiatric: Alert Results Lab Laboratory Tests 03/19/21 16:55: Urine Color YELLOW, Urine Clarity CLEAR, Urine pH 6.5, Urine Specific [place] 1.020, Urine Protein 3+H, Urine Glucose (UA) NEGATIVE, Urine Ketones NEGATIVE, Urine Nitrite NEGATIVE, Urine Bilirubin NEGATIVE, Urine Urobilinogen 0.2, Urine Leukocyte Esterase NEGATIVE, Urine RBC (Auto) 1+H, Urine RBC 0-2, Urine WBC 0-2, Urine Crystals PRESENTH, Urine Amorphous Sediment FEW JESSICA URATESH, Urine Bacteria TRACE, Urine Casts NONE, Urine Mucus SMALLH, Urine Culture Indicated NO Microbiology 03/12/21 Blood Culture - Final, Complete No growth Assessment/Plan Assessment/Plan Assess & Plan/Chief Complaint 1. UTI--done with rocephin, repeat UA 2. Acute Renal Insufficiency--improved after hydration but patient not eating or drinking well 3. Hypertensive Urgency with Orthostatic Hypotension--significantly positive tilt table, patient is very high risk for falling and lives alone so plan is for SNF 4. Recurrent Falls/Weakness--PT and OT started--likely from orthostatic hypotension and is very high risk for recurrent falls 5. 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 Anxiety/Depression with recent worsening due to grieving--increased effexor dose 7. Hypokalemia/hypomagnesemia--on oral potassium and magnesium replacement Clinical Quality Measures Admission Status Admission Dx 1. Acute UTI with Altered Mental Status and Dyspepsia/Nausea--admit and start rocephin 2. Acute Renal Insufficiency--hydrate and monitor BUN/Cr 3. Nausea/Dyspepsia--start protonix and use zofran prn 4. Falls--Recurrent--start PT/OT, have been weaning off high dose gabapentin 5. Worsening Debility--may need to consider rehab 6. Altered Mental Status/Memory Loss--likely worsened by infection and anxiety and medications but also underlying dementia 7. Lumbar Degenerative Disc Disease--Uses tramadol with tylenol prn 8. Tremors--weaning off high dose gabapentin 9. Generalized Anxiety Disorder with recent depression/grieving--increase effexor ER to 37.5mg po BID, patient has been on intermediate xanax and this could be contributing to confusion so will decrease dose while inpatient and monitor YADIEL ARAUJO DO Mar 19, 2021 18:27
[2021-03-19 20:00] VITALS: BP 200/60
[2021-03-20] VITALS: BP 196/91
[2021-03-20 04:00] VITALS: BP 222/97
[2021-03-20] MEDS ORDERED: LOSARTAN 25 MG (COZAAR) TAB PO ONE (05:00)
[2021-03-20] MEDS: NS IV 1000 ML 1,000 ML IV SCH (05:48)
[2021-03-20 06:33] LABS: POTASSIUM 3.4 MMOL/L (3.6-5.0)
[2021-03-20 06:38] LABS: CREATININE SERUM 1.23 MG/DL (0.60-1.30)
[2021-03-20 06:41] LABS: MAGNESIUM 1.5 MG/DL (1.6-2.4)
[2021-03-20] MEDS: KCL 20 MEQ TAB (K-DUR) PO SCH (07:54)
[2021-03-20 08:00] VITALS: BP 184/65
--- NOTE | 2021-03-20 08:01 | Cardiology Progress Note ---
Subjective Date Seen by Provider: Mar 20, 2021 Time Seen by Provider: 08:00 Subjective/Events-last exam Pt reports that she is still having episodes of dizziness when she gets up to use the bathroom. Did have a small BM yesterday. States that she has no additional concerns. Review of Systems General: Chills; No Other (fever) HEENT: No Head Aches, No Visual Changes Pulmonary: No Dyspnea, No Cough Cardiovascular: Lt Headedness; No: Chest Pain, Palpitations Gastrointestinal: Constipation; No: Nausea, Vomiting, Abdominal Pain, Diarrhea Genitourinary: No Dysuria, No Frequency Neurological: No: Weakness, Numbness Objective-Cardiology Exam Last Set of Vital Signs Vital Signs 03/20/21 08:00 Temp 35.8 Pulse 62 Resp 20 B/P (MAP) 184/65 (104) Pulse Ox 97 O2 Delivery Room Air I&O Intake and Output 03/20/21 00:00 Intake Total 670 ml Output Total 1352 ml Balance -682 ml Intake Oral 670 ml Output Urine Total 1350 ml Stool Total 2 ml # Voids 5 # Bowel Movements 1 General: Alert, Oriented X3, Cooperative HEENT: Atraumatic, PERRLA, EOMI Neck: Supple, No JVD Lungs: Clear to Auscultation, Normal Air Movement Heart: Regular Rate, Normal S1, Normal S2, No Murmurs Abdomen: Soft, No Tenderness Extremities: No Clubbing, No Cyanosis, Normal Pulses, Other (Mild tenderness in b/l feet and calves) Skin: No Rashes Neuro: Normal Speech Psych/Mental Status: Mental Status NL, Mood NL Results Lab Laboratory Tests 03/20/21 06:15 A/P-Cardiology Admission Diagnosis Orthostatic hypotension Labile hypertension UTI Carotid stenosis Assessment/Plan Orthostatic hypotension, multiple falls, Underwent TTT 03/14/21, positive for vasodepressive syncope. Continues to have labile HTN, Toprol was discontinued due to persistent bradycardia, blood pressure was over 200 systolic this morning, I added hydralazine. Using MATT hose up to the thigh and evaluate tolerance and response Labile hypertension, difficult to control, Had BP of 222/97 at 0500 today. Given 25mg of Losartan at that time. When I rechecked BP at 0735 today it was 199/91. Hydralazine 10mg Q6H has been ordered. Had been maintained on minimal dose of losartan. Using MATT hose. Continue to monitor. Sinus node dysfunction, borderline bradycardia. Continue to monitor UTI, Has finished taking Ceftriaxone. Managed by Dr. Hernandez Constipation, started on Colace and MiraLAX, Given Dulcolax suppository yesterday and was able to have a small BM. Continue to monitor History of mild carotid stenosis, last ultrasound was done in 2019, continue to monitor Chronic back pain, managed by primary care physician Anxiety, for which she takes Xanax PRN and Venlafaxine QD History of tonsillectomy, hysterectomy, laminectomy and lumbar fusion surgeries Supervisory-Addendum Brief Verification & Attestation Participated in pt care: history, MDM, physical Personally performed: exam, history, MDM, supervision of care Care discussed with: Medical Student Procedures: n/a Results interpretation: Verified all documentation Verification and Attestation of Medical Student E/M Service A medical student performed and documented this service in my presence. I reviewed and verified all information documented by the medical student and made modifications to such information, when appropriate. I personally performed the physical exam and medical decision making. I made few modifications to the note using italic font Alessandro Dela Cruz, Mar 20, 2021,11:58 SANDRA JETER Mar 20, 2021 08:01 ALESSANDRO DELA CRUZ MD Mar 20, 2021 11:59
[2021-03-20] MEDS: PANTOPRAZOLE 40 MG (PROTONIX) TAB PO SCH (09:51)
[2021-03-20] MEDS: ALPRAZolam 0.25 MG (XANAX) TAB PO SCH (09:52)
[2021-03-20] MEDS: VENlafaxine XR 37.5 MG (EFFEXOR XR) CAP PO SCH (09:52)
[2021-03-20] MEDS: MAGNESIUM OXIDE (MAG-OX)400 MG TAB PO SCH (09:52)
[2021-03-20] MEDS: DOCUSATE SODIUM 100 MG (COLACE) CAP PO SCH (09:52)
[2021-03-20] MEDS: LOSARTAN 50 MG (COZAAR) TAB PO SCH (09:52)
[2021-03-20] MEDS: MELOXICAM 7.5 MG (MOBIC) TABLET PO SCH (09:52)
[2021-03-20] MEDS: VITAMIN D3 125 MCG (5,000 UNITS) CAPSULE PO SCH (09:53)
--- NOTE | 2021-03-20 11:21 | Occupational Ther Daily Note ---
OT Current Status-Daily Note Subjective Pt. alert in bed. Pt. agrees to therapy. Pt. no c/o pain. Mental Status/Objective Patient Orientation: Person, Place, Time, Situation Attachments: IV, Telemetry ADL-Treatment Pt. requests to use restroom. Mod I for supine <--> EOB and bed mobility using bed rails. Pt. attempt to stand and ambu. to toilet using FWW CGA, required to sit twice. Pt. then able to transfer to [facility], unable to urinate/BM. Pt cleansed pelon area and buttocks by self. CGA for SPT. After therapy, pt lying in bed with call light/phone in reach. All needs met. Therapy Code Descriptions/Definitions Functional [place] Measure: 0=Not Assessed/NA 4=Minimal Assistance 1=Total Assistance 5=Supervision or Setup 2=Maximal Assistance 6=Modified [place] 3=Moderate Assistance 7=Complete IndependenceSCALE: Activities may be completed with or without assistive devices. 6-Xcwmpnward-ctbfhbg completes the activity by him/herself with no assistance from a helper. 5-Set-up or Clean-up Assistance-helper sets up or cleans up; patient completes activity. [place] assists only prior to or following the activity. 4-Supervision or Touching Assistance-helper provides verbal cues and/or touching/steadying and/or contact guard assistance as patient completes activity. Assistance may be provided throughout the activity or intermittently. 3-Partial/Moderate Assistance-helper does LESS THAN HALF the effort. [place] lifts, holds or supports trunk or limbs, but provides less than half the effort. 2-Substantial/Maximal Assistance-helper does MORE THAN HALF the effort. [place] lifts or holds trunk or limbs and provides more than half the effort. 8-Lsxrrxofg-bdxizp does ALL the effort. Patient does none of the effort to complete the activity. Or, the assistance of 2 or more helpers is required for the patient to complete the activity. If activity was not attempted, code reason: 7-Patient Refused. 9-Not Applicable-not attempted and the patient did not perform the activity before the current illness, exacerbation or injury. 10-Not Attempted due to Environmental Limitations-(lack of equipment, weather restraints, etc.). 88-Not Attempted due to Medical Conditions or Safety Concerns. Toileting Hygiene (QC): 4 (CGA due to BP issues. Pt able to cleanse self sitting on toilet.) Toilet Transfer (QC): 4 (CGA due to BP issues) Other Treatment Pt. participated in B UE ex's in all planes,performed for B UE strengthening for functional activities and increase stamina, skilled instruction required for pr oper technique, 10 reps 2 sets ea. using light resistance theraband. Education OT Patient Education: Exercise program Teaching Methods: Demonstration, Discussion Response to Teaching: Verbalize Understanding, Return Demonstration, Reinforcement Needed OT Detention Goals Detention Goals Time Frame: Mar 20, 2021 Eating (QC): 6 Oral Hygiene (QC): 6 Toileting Hygiene (QC): 6 Shower/Bathe Self (QC): 5 Upper Body Dressing (QC): 6 Lower Body Dressing (QC): 6 On/Off Footwear (QC): 6 Additional Goals: 1-Demonstrate ADL Tasks, 2-Verbalize Understanding, 3- ImproveStrength/[place] 1=Demonstrate adherence to instructed precautions during ADL tasks. 2=Patient will verbalize/demonstrate understanding of assistive devices/modifications for ADL. 3=Patient will improve strength/tolerance for activity to enable patient to perform ADL's. OT Education/Plan Problem List/Assessment Assessment: Decreased Activ Tolerance, Decreased UE Strength, Impaired Self- Care Skills, Restricted Funct UE ROM Discharge Recommendations Plan/Recommendations: Continue POC Treatment Plan/Plan of Care Patient would benefit from OT for education, treatment and training to promote independence in ADL's, mobility, safety and/or upper extremity function for ADL's. Plan of Care: ADL Retraining, Functional Mobility, UE Funct Exercise/Act Treatment Duration: Mar 20, 2021 Frequency: 5 times per week Estimated Hrs Per Day: .25 hour per day Agreement: Yes Rehab Potential: Fair Time/GCodes Start Time: 10:55 Stop Time: 11:21 Total Time Billed (hr/min): 26 Billed Treatment Time 1 visit- EX1 ( 18min), ADL1 (8 min) MARISA CABRALES Mar 20, 2021 11:21
[2021-03-20 12:00] VITALS: BP 170/79
[2021-03-20] MEDS ORDERED: POTA20TA8 PO (12:48)
[2021-03-20] MEDS ORDERED: ONDN4T PO ×2 (12:48→16:34)
[2021-03-20] MEDS ORDERED: ACET325T49 PO (12:48)
[2021-03-20] MEDS ORDERED: HYDR-3922 PO (12:48)
[2021-03-20] MEDS ORDERED: MAGN400T8 PO (12:48)
[2021-03-20] MEDS ORDERED: DCS100C PO (12:48)
[2021-03-20] MEDS ORDERED: CALC-250 PO (12:49)
--- NOTE | 2021-03-20 12:54 | Discharge Inst-Skilled Nursing ---
Discharge Inst-Skilled NF Reconcile Patient Problems Problems Reviewed?: Yes Patient Instructions Patient Problems: Hypertensive Urgency Severe Orthostatic Hypotension High Fall Risk Depression Dementia Consult/Follow Up/Orders Skilled NF Admit to: [facility] Certification (SNF) I certify that SNF services are required to be given on an inpatient basis because of the above named patient's need for intermediate care on a continuing basis for the conditions(s) for which he/she was receiving inpatient hospital services prior to his/her transfer to the SNF. Nursing Home Facility Order: [facility]-Evaluate & Treat, Physical Therapy-Evaluate & Treat, Speech Language-Evaluate & Treat Oxygen Delivery Method: Room Air Discharge Diet: Cardiac Diet Daily Activity as Tolerated: Yes Resuscitation Status: Full Code New & Resume Previous Orders New & Resume Previous Orders Thigh High Christofer Hose--on in AM and off in PM Boost or house supplement BID to TID Chem 7 and magnesium in 1 week Hold losartan or hydralazine for BP less than 140/90 Blood pressure and pulse check BID until fwup with Dr. Cheyenne Hernandez Mar 20, 2021 12:50 YADIEL HERNANDEZ DO Mar 20, 2021 12:54
[2021-03-20] MEDS ORDERED: MAGNESIUM 1 GM/100 ML IVPB 100 ML IV ONE (13:00)
[2021-03-20] MEDS ORDERED: KCL 20 MEQ TAB (K-DUR) PO ONE (13:00)
== END 2021-03-20 16:35 | DRG 690 ==
LOC: 4TH 14:43
PROVIDERS: ADMIT Family Medicine; ATTEND Family Medicine
DX: N39.0 Urinary tract infection, site not specified (principal); N17.9 Acute kidney failure, unspecified; I67.89 Other cerebrovascular disease; I42.9 Cardiomyopathy, unspecified; I16.0 Hypertensive urgency; I95.1 Orthostatic hypotension; B96.20 Unspecified Escherichia coli [E. coli] as the cause of diseases classified elsewhere; F03.90 Unspecified dementia, unspecified severity, without behavioral disturbance, psychotic disturbance, mood disturbance, and anxiety; M51.36 Other intervertebral disc degeneration, lumbar region; F41.1 Generalized anxiety disorder; R25.1 Tremor, unspecified; R29.6 Repeated falls; E78.00 Pure hypercholesterolemia, unspecified; E03.9 Hypothyroidism, unspecified; K59.09 Other constipation; H91.90 Unspecified hearing loss, unspecified ear; F32.9 Major depressive disorder, single episode, unspecified; H54.7 Unspecified visual loss; I65.29 Occlusion and stenosis of unspecified carotid artery; R00.1 Bradycardia, unspecified; E87.6 Hypokalemia; E83.42 Hypomagnesemia; R11.0 Nausea; R10.13 Epigastric pain; Z88.8 Allergy status to other drugs, medicaments and biological substances; Z88.5 Allergy status to narcotic agent; Z79.899 Other long term (current) drug therapy; Z98.1 Arthrodesis status; Z20.822 Contact with and (suspected) exposure to COVID-19
CPT/HCPCS: 36415; 80048; 80053; 81000; 82947; 83735; 85025; 85027; 86141; 87040; 87635; 93005; 93306; 93660

== ENCOUNTER 2021-05-05 13:22 | Emergency (ER) | payer MEDICARE, OTHER ==
[~2021-05-05] VITALS: Ht 165 cm; Wt 63.0 kg
[~2021-05-05 13:22] MED LIST changes: +ACET325T49 PO; +CALC-250 PO; +DOCU-239 PO; +FAMO20TA5 PO; +HYDR-3922 PO; +LOSA50TA63 PO; +MELO7.5T46 PO; +MGX400T PO; +MTP25TSR PO; +ONDN4T PO; +POTA20TA8 PO; +VNL37.5T PO
[2021-05-05 13:59] LABS: BASOPHILS # (AUTO) 0.1 10^3/uL (0.0-0.1); BASOPHILS % (AUTO) 1 % (0-10); EOSINOPHILS # (AUTO) 0.1 10^3/uL (0.0-0.3); EOSINOPHILS % (AUTO) 1 % (0-10); HEMATOCRIT 36 % (35-52); HEMOGLOBIN 11.9 g/dL (11.5-16.0); LYMPHOCYTES # (AUTO) 2.3 10^3/uL (1.0-4.0); LYMPHOCYTES % (AUTO) 40 % (12-44); MEAN CORPUSCULAR HEMOGLOBIN 33 pg (25-34); MEAN CORPUSCULAR HGB CONC 33 g/dL (32-36); MEAN CORPUSCULAR VOLUME 100 fL (80-99); MEAN PLATELET VOLUME 11.3 fL (9.0-12.2); MONOCYTES # (AUTO) 0.5 10^3/uL (0.0-1.0); MONOCYTES % (AUTO) 9 % (0-12); NEUTROPHILS # (AUTO) 2.9 10^3/uL (1.8-7.8); NEUTROPHILS % (AUTO) 49 % (42-75); PLATELET COUNT 207 10^3/uL (130-400); WHITE BLOOD COUNT 5.8 10^3/uL (4.3-11.0)
[2021-05-05 14:12] LABS: ALBUMIN 3.7 GM/DL (3.2-4.5); BILIRUBIN,TOTAL 0.4 MG/DL (0.1-1.0); CREATININE SERUM 1.34 MG/DL (0.60-1.30); MAGNESIUM 2.1 MG/DL (1.6-2.4); POTASSIUM 4.2 MMOL/L (3.6-5.0); TOTAL PROTEIN 6.6 GM/DL (6.4-8.2)
[2021-05-05 14:32] LABS: TSH (THYROID ANALYZER) 1.69 UIU/ML (0.35-4.94)
--- NOTE | 2021-05-05 14:33 | Diagnostic Imaging Report ---
PROCEDURE: CT head without contrast. TECHNIQUE: Multiple contiguous axial images were obtained through the brain without the use of intravenous contrast. Auto Exposure Controls were utilized during the CT exam to meet ALARA standards for radiation dose reduction. INDICATION: Hypertension and blurry vision COMPARISON: 03/09/2021. FINDINGS: No intracranial hyperdense hemorrhage or space-occupying mass. No hydrocephalus or midline shift. Global loss in the frontal and temporal lobes is unchanged. Periventricular white matter hypoattenuation is stable and most compatible with small vessel ischemic disease. Osborn-white matter differentiation is preserved. No skull fracture. IMPRESSION: No acute intracranial process by CT. Dictated by: Dictated on workstation # [id number]
--- NOTE | 2021-05-05 14:59 | ED Cardiac General ---
History of Present Illness General Chief Complaint: Cardiac/General Problems Stated Complaint: VIUSAL DISTURBANCE,HTN Nursing Triage Note: PT TO RM 2 [facility]IA [facility] W REPORTS OF HTN AND VISUAL DISTURBANCES. PT REPORTS SHE WAS READING THE NEWSPAPER THIS AM AND HAD TROUBLE FOCUSING IN ON THE WORDS. DENIES PAIN. PT A&OX4. Source: patient Exam Limitations: no limitations History of Present Illness Date Seen by Provider: May 05, 2021 Time Seen by Provider: 13:38 Initial Comments This delightful 80-year-old woman presents to the emergency room via EMS from [facility] for reasons of hypertension and visual disturbance. EMS reported her systolic blood pressure at one point was 240. They administered a dose of nitroglycerin which improved her blood pressure. Patient reports her medications are lined out for her and a pill organizer. She has not missed any doses according to her report. She describes a vague visual disturbance this morning while she was reading a. She states that she could see the words and understand the words but they were not clear in her vision. This seems to have resolved now. She denies any other focal neurologic deficits. No deficits were measured on exam. Dr. Quinn is her heavy equipment supervisor. Dr. ARAUJO is her primary care provider. ASA po COLLISION MECHANIC: No Allergies and Home Medications Allergies Coded Allergies: Milk Containing Products (Unverified Allergy, Unknown, 04/19/13) FROM UNCODED LIST codeine (Verified Allergy, Unknown, 10/11/20) erythromycin base (Unverified Allergy, Unknown, 08/29/06) metaxalone (Verified Allergy, Unknown, 10/11/20) Patient Home Medication List Home Medication List Reviewed: Yes ALPRAZolam (ALPRAZolam) 0.25 Mg Tablet, 0.125 MG PO BID PRN for ANXIETY Prescribed by: YADIEL ARAUJO on 03/15/21 1256 Acetaminophen (Acetaminophen) 325 Mg Tablet, 650 MG PO Q4H PRN for PAIN-MILD (1- 4) Prescribed by: YADIEL ARAUJO on 03/20/21 1248 Cholecalciferol (Vitamin D3) (Vitamin D3) 125 Mcg Tablet, 125 MCG PO DAILY Prescribed by: YADIEL ARAUJO on 03/20/21 1249 Docusate Sodium (Dok) 100 Mg Capsule, 100 MG PO BID Prescribed by: YADIEL ARAUJO on 03/20/21 1248 Famotidine (Famotidine) 20 Mg Tablet, 20 MG PO BID Prescribed by: YADIEL ARAUJO on 03/15/21 1256 Hydralazine HCl (Hydralazine HCl) 10 Mg Tablet, 10 MG PO TID Prescribed by: YADIEL ARAUJO on 03/20/21 1248 Losartan Potassium (Losartan Potassium) 50 Mg Tablet, 50 MG PO DAILY Prescribed by: YADIEL ARAUJO on 03/16/21 0951 Magnesium Oxide (Magnesium Oxide) 400 Mg Tablet, 400 MG PO BIDPC Prescribed by: YADIEL ARAUJO on 03/20/21 1248 Meloxicam (Meloxicam) 7.5 Mg Tablet, 7.5 MG PO DAILY Prescribed by: YADIEL ARAUJO on 03/15/21 1257 Ondansetron HCl (Zofran) 4 Mg Tab, 4 MG PO Q6H PRN for NAUSEA-1ST LINE Prescribed by: JACOB THOMSON on 03/20/21 1634 Potassium Chloride (Klor-Con M20) 20 Meq Tab.er.prt, 20 MEQ PO DAILY@0700 Prescribed by: YADIEL ARAUJO on 03/20/21 1248 Tramadol HCl (Tramadol HCl) 50 Mg Tablet, 50 MG PO TID PRN for PAIN-MODERATE (5- 7) Prescribed by: YADIEL ARAUJO on 03/15/21 1256 Venlafaxine HCl (Venlafaxine HCl) 37.5 Mg Tab, 37.5 MG PO BID Prescribed by: YADIEL ARAUJO on 03/15/21 1256 Review of Systems Review of Systems Constitutional: no symptoms reported EENTM: See HPI Respiratory: No Symptoms Reported Cardiovascular: See HPI Gastrointestinal: No Symptoms Reported Genitourinary: No Symptoms Reported Musculoskeletal: no symptoms reported Skin: no symptoms reported Psychiatric/Neurological: See HPI Endocrine: No Symptoms Reported Hematologic/Lymphatic: No Symptoms Reported Past Hshfmvx-Fatprd-Dwoyhh Hx Patient Social History Tobacco Use?: No Use of E-Cig and/or Vaping dev: No Substance use?: No Alcohol Use?: No Immunizations Up To Date Tetanus Booster (TDap): More than 5yrs PED Vaccines UTD: Yes Influenza Vaccine Up-to-Date: No; Not Current First/Initial COVID19 Vaccinat: 07/27/20 Second COVID19 Vaccination Bladimir: 08/24/20 COVID19 Vaccine Business Advisor: DIANN Seasonal Allergies Seasonal Allergies: No Past Medical History Surgeries: Yes (bladder sling 1996) Cystectomy, 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, Orthopedic, Tonsillectomy Respiratory: No Cardiac: Yes High Cholesterol, Hypertension Neurological: No : No Reproductive Disorders: No Female Reproductive Disorders: 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, Menopausal Sexually Transmitted Disease: No HIV/AIDS: No Genitourinary: No Gastrointestinal: Yes Chronic Constipation Musculoskeletal: Yes Degenerate Disk Disease, Chronic Back Pain Endocrine: Yes Hypothyroidsim HEENT: Yes (vision changes age - patient states ) Loss of Vision: Bilateral Hearing Impairment: Denies Cancer: No Psychosocial: Yes Anxiety Integumentary: No Blood Disorders: No Adverse Reaction/Blood Tranf: No Family Medical History Alzheimer's disease Arthritis Asthma Colon cancer Completed stroke Dementia Hypertension Myocardial infarction Visual disorder Cancer, Lung Disease, Other Conditions/Hx Physical Exam Vital Signs Vital Signs - First Documented 05/05/21 13:30 Temp 36.6 Pulse 78 Resp 18 B/P (MAP) 175/92 (119) Pulse Ox 95 O2 Delivery Room Air Capillary Refill : Less Than 3 Seconds Height, Weight, BMI Height: 5'5.00" Weight: 140lbs. 0.0oz. 63.212348qb; 23.00 BMI Method:Stated General Appearance: No Apparent Distress, WD/WN, Thin HEENT: PERRL/EOMI, Normal ENT Inspection Neck: Normal Inspection; No JVD Respiratory: Lungs Clear, Normal Breath Sounds, No Accessory Muscle Use, No Respiratory Distress Cardiovascular: Regular Rate, Rhythm, No Edema, No Murmur Gastrointestinal: Normal Bowel Sounds, Non Tender, Soft Extremity: Normal Inspection, No Pedal Edema Neurologic/Psychiatric: Alert, Oriented x3, No Motor/Sensory Deficits, Normal Mood/Affect, market specialist II-XII Norm as Tested, Other (Normal frkz-ie-flkd and finge r-to-nose. Normal gait.) Skin: Normal Color, Warm/Dry Progress/Results/Core Measures Results/Orders Lab Results Laboratory Tests Test 05/05/21 13:30 Range/Units White Blood Count 5.8 4.3-11.0 10^3/uL Red Blood Count 3.63 L 3.80-5.11 10^6/uL Hemoglobin 11.9 11.5-16.0 g/dL Hematocrit 36 35-52 % Mean Corpuscular Volume 100 H 80-99 fL Mean Corpuscular Hemoglobin 33 25-34 pg Mean Corpuscular Hemoglobin Concent 33 32-36 g/dL Red Cell Distribution Width 12.1 10.0-14.5 % Platelet Count 207 130-400 10^3/uL Mean Platelet Volume 11.3 9.0-12.2 fL Immature Granulocyte % (Auto) 0 % Neutrophils (%) (Auto) 49 42-75 % Lymphocytes (%) (Auto) 40 12-44 % Monocytes (%) (Auto) 9 0-12 % Eosinophils (%) (Auto) 1 0-10 % Basophils (%) (Auto) 1 0-10 % Neutrophils # (Auto) 2.9 1.8-7.8 10^3/uL Lymphocytes # (Auto) 2.3 1.0-4.0 10^3/uL Monocytes # (Auto) 0.5 0.0-1.0 10^3/uL Eosinophils # (Auto) 0.1 0.0-0.3 10^3/uL Basophils # (Auto) 0.1 0.0-0.1 10^3/uL Immature Granulocyte # (Auto) 0.0 0.0-0.1 10^3/uL Sodium Level 136 135-145 MMOL/L Potassium Level 4.2 3.6-5.0 MMOL/L Chloride Level 103 98-107 MMOL/L Carbon Dioxide Level 20 L 21-32 MMOL/L Anion Gap 13 5-14 MMOL/L Blood Urea Nitrogen 28 H 7-18 MG/DL Creatinine 1.34 H 0.60-1.30 MG/DL Estimat Glomerular Filtration Rate 38 BUN/Creatinine Ratio 21 Glucose Level 94 70-105 MG/DL Calcium Level 9.0 8.5-10.1 MG/DL Corrected Calcium 9.2 8.5-10.1 MG/DL Magnesium Level 2.1 1.6-2.4 MG/DL Total Bilirubin 0.4 0.1-1.0 MG/DL Aspartate Amino Transf (AST/SGOT) 29 5-34 U/L Alanine Aminotransferase (ALT/SGPT) 13 0-55 U/L Alkaline Phosphatase 54 40-136 U/L Total Protein 6.6 6.4-8.2 GM/DL Albumin 3.7 3.2-4.5 GM/DL TSH [place] Testing 1.69 0.35-4.94 UIU/ML My Orders Orders - ALBIN TESFAYE MD Cbc With Automated Diff (05/05/21 13:51) Comprehensive Metabolic Panel (05/05/21 13:51) Magnesium (05/05/21 13:51) Thyroid Analyzer (05/05/21 13:51) Ct Head Wo (05/05/21 13:51) Ekg Tracing (05/05/21 14:02) Monitor-Rhythm Ecg Trace Only (05/05/21 14:02) Vital Signs/I&O 05/05/21 05/05/21 13:30 16:04 Temp 36.6 Pulse 78 65 Resp 18 20 B/P (MAP) 175/92 (119) 172/87 Pulse Ox 95 98 O2 Delivery Room Air Room Air Blood Pressure Mean: 119 Progress Progress Note : Progress Note Labs were obtained as well as CT of the head and EKG. No acute abnormalities were identified. No measurable neurologic deficits were found on exam. Blood pressure remained stable in the 140s to 170s during her ER stay. Patient was ultimately discharged in stable condition. See discharge instructions. Initial ECG Impression Date: May 05, 2021 Initial ECG Impression Time: 13:42 Initial ECG Rate: 71 Initial ECG Rhythm: Normal Sinus Comment Sinus rhythm with no ST elevation or depression. Probable right bundle branch block. No axis deviation. Diagnostic Imaging Diagonstic Imaging: CT Plain Films/CT/US/NM/MRI: head Comments CT head viewed by me and report reviewed. See preliminary report below: NAME: CARIN BECK [facility] REC#: [id number] PT STATUS: REG ER : 1940 PHYSICIAN: ALBIN TESFAYE MD ADMIT DATE: 05/05/21/ER Draft Date of Exam:05/05/21 CT HEAD WO PROCEDURE: CT head without contrast. TECHNIQUE: Multiple contiguous axial images were obtained through the brain without the use of intravenous contrast. Auto Exposure Controls were utilized during the CT exam to meet ALARA standards for radiation dose reduction. INDICATION: Hypertension and blurry vision COMPARISON: 03/09/2021. FINDINGS: No intracranial hyperdense hemorrhage or space-occupying mass. No hydrocephalus or midline shift. Global loss in the frontal and temporal lobes is unchanged. Periventricular white matter hypoattenuation is stable and most compatible with small vessel ischemic disease. Osborn-white matter differentiation is preserved. No skull fracture. IMPRESSION: No acute intracranial process by CT. Dictated on workstation # [id number] Dict: 05/05/21 1425 Trans: 05/05/21 1432 [facility] [id number] Interpreted by: SHWETA SHELLEY MD Electronically signed by: Departure Impression Primary Impression: Episode of hypertension Additional Impression: Visual disturbance Disposition: HOME, SELF-CARE Condition: Improved Departure-Patient Inst. Decision time for Depature: 15:40 Referrals: YADIEL ARAUJO DO (PCP/Family) Primary Care Physician Patient Instructions: High Blood Pressure in Adults Add. Discharge Instructions: Follow-up with Dr. Quinn and Dr. ARAUJO as soon as possible. Also contact your drywall professional first thing on Friday morning and arrange follow-up. Resume your usual medications. You may take your mid day medications including hydralazine when you return home from the ER. You may wish to push back your evening doses of medications by 1 to 2 hours since you are taking your midday dose a little later. Call with questions or concerns. Return to the ER if you have any worsening of symptoms. All discharge instructions reviewed with patient and/or family. Voiced understanding. Copy Copies To 1: YADIEL ARAUJO DO Copies To 2: DIANE QUINN MD, JOSHUA T MD May 05, 2021 14:59
[2021-05-05 16:04] VITALS: BP 172/87
== END 2021-05-05 16:04 | disposition home or self-care (01) ==
LOC: EDUNIT# 13:22 → ER 13:25
DX: I10 Essential (primary) hypertension (principal); H53.9 Unspecified visual disturbance; F41.9 Anxiety disorder, unspecified; Z79.899 Other long term (current) drug therapy
CPT/HCPCS: 36415; 70450; 80053; 83735; 84443; 85025; 93005; 93041

== ENCOUNTER 2021-05-22 08:34 | Emergency (ER) | payer MEDICARE ==
[~2021-05-22] VITALS: Ht 167.7 cm; Wt 62.6 kg
[~2021-05-22 08:34] MED LIST changes: +POTA-169 PO; -POTA20TA8 PO
[2021-05-22 09:06] LABS: BASOPHILS # (AUTO) 0.1 10^3/uL (0.0-0.1); BASOPHILS % (AUTO) 1 % (0-10); EOSINOPHILS # (AUTO) 0.2 10^3/uL (0.0-0.3); EOSINOPHILS % (AUTO) 3 % (0-10); HEMATOCRIT 37 % (35-52); HEMOGLOBIN 12.4 g/dL (11.5-16.0); LYMPHOCYTES # (AUTO) 2.5 10^3/uL (1.0-4.0); LYMPHOCYTES % (AUTO) 42 % (12-44); MEAN CORPUSCULAR HEMOGLOBIN 33 pg (25-34); MEAN CORPUSCULAR HGB CONC 34 g/dL (32-36); MEAN CORPUSCULAR VOLUME 100 fL (80-99); MEAN PLATELET VOLUME 10.8 fL (9.0-12.2); MONOCYTES # (AUTO) 0.5 10^3/uL (0.0-1.0); MONOCYTES % (AUTO) 9 % (0-12); NEUTROPHILS # (AUTO) 2.6 10^3/uL (1.8-7.8); NEUTROPHILS % (AUTO) 45 % (42-75); PLATELET COUNT 231 10^3/uL (130-400); WHITE BLOOD COUNT 5.9 10^3/uL (4.3-11.0)
--- NOTE | 2021-05-22 09:08 | ED Neurological Problem ---
General Chief Complaint: Neuro-Stroke Like Symptoms Stated Complaint: HIGH BLOOD PRESSURE Nursing Triage Note: PT TO ROOM 05 VIA W/C WITH C/O HYPERTENSION, NAUSEA, RIGHT SIDE HEADACHE, SHAKYNESS, BILAT KEG NUMBNESS. PT REPORTS SHE WAS INSTRUCTED TO COME TO ED. Source: patient, [facility] records, old records Exam Limitations: no limitations History of Present Illness Date Seen by Provider: May 22, 2021 Time Seen by Provider: 08:49 Initial Comments This 80-year-old woman presents to the emergency room via private vehicle with concerns about hypertension, dizziness, nausea, and paresthesias in both legs. She required assistance to ambulate this morning which is not typical for her. She lives alone and is normally able to ambulate well using a walker. She has chronic problems with hypertension. She presents a log of blood pressures from May 18 through May 21 with high measurements ranging from 174-213 systolic. She took blood pressure medications about 45 minutes prior to arrival which appear to include amlodipine, hydralazine, and losartan based on her medication list and filling history. On exam, patient appears to have some subtle weakness of her right leg and some mild discoordination. She states this feels asymmetric when compared to the left leg. Last known well time was when she went to bed last night around 2200. She woke with the symptoms this morning. 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 Allergies and Home Medications Allergies Coded Allergies: Milk Containing Products (Unverified Allergy, Unknown, 04/19/13) FROM UNCODED LIST codeine (Verified Allergy, Unknown, 10/11/20) erythromycin base (Unverified Allergy, Unknown, 08/29/06) metaxalone (Verified Allergy, Unknown, 10/11/20) Patient Home Medication List Home Medication List Reviewed: Yes ALPRAZolam (ALPRAZolam) 0.25 Mg Tablet, 0.125 MG PO BID PRN for ANXIETY Prescribed by: YADIEL HERNANDEZ on 03/15/21 1256 Acetaminophen (Acetaminophen) 325 Mg Tablet, 650 MG PO Q4H PRN for PAIN-MILD (1- 4) Prescribed by: YADIEL HERNANDEZ on 03/20/21 1248 Cephalexin (Cephalexin) 500 Mg Tablet, 500 MG PO TID Prescribed by: TIMOTHY BAH on 05/22/21 1116 Cholecalciferol (Vitamin D3) (Vitamin D3) 125 Mcg Tablet, 125 MCG PO DAILY Prescribed by: YADIEL HERNANDEZ on 03/20/21 1249 Docusate Sodium (Dok) 100 Mg Capsule, 100 MG PO BID Prescribed by: YADIEL HERNANDEZ on 03/20/21 1248 Famotidine (Famotidine) 20 Mg Tablet, 20 MG PO BID Prescribed by: YADIEL HERNANDEZ on 03/15/21 1256 Hydralazine HCl (Hydralazine HCl) 10 Mg Tablet, 10 MG PO TID Prescribed by: YADIEL HERNANDEZ on 03/20/21 1248 Losartan Potassium (Losartan Potassium) 50 Mg Tablet, 50 MG PO DAILY Prescribed by: YADIEL HERNANDEZ on 03/16/21 0951 Magnesium Oxide (Magnesium Oxide) 400 Mg Tablet, 400 MG PO BIDPC Prescribed by: YADIEL HERNANDEZ on 03/20/21 1248 Meloxicam (Meloxicam) 7.5 Mg Tablet, 7.5 MG PO DAILY Prescribed by: YADIEL HERNANDEZ on 03/15/21 1257 Ondansetron HCl (Zofran) 4 Mg Tab, 4 MG PO Q6H PRN for NAUSEA-1ST LINE Prescribed by: JACOB THOMSON on 03/20/21 1634 Potassium Chloride (Klor-Con M20) 20 Meq Tab.er.prt, 20 MEQ PO DAILY@0700 Prescribed by: YADIEL HERNANDEZ on 03/20/21 1248 Tramadol HCl (Tramadol HCl) 50 Mg Tablet, 50 MG PO TID PRN for PAIN-MODERATE (5- 7) Prescribed by: YADIEL HERNANDEZ on 03/15/21 1256 Venlafaxine HCl (Venlafaxine HCl) 37.5 Mg Tab, 37.5 MG PO BID Prescribed by: YADIEL HERNANDEZ on 03/15/21 1256 Review of Systems Review of Systems Constitutional: no symptoms reported Eyes: No Symptoms Reported Ears, Nose, Mouth, Throat: no symptoms reported Respiratory: no symptoms reported Cardiovascular: see HPI Gastrointestinal: see HPI Genitourinary: no symptoms reported : No Musculoskeletal: no symptoms reported Skin: no symptoms reported Psychiatric/Neurological: See HPI Endocrine: No Symptoms Reported Hematologic/Lymphatic: No Symptoms Reported Past Vxbmize-Nqngtv-Kzvzfx Hx Patient Social History Tobacco Use?: No Smoking Status: Never a Smoker Use of E-Cig and/or Vaping dev: No Use of E-Cig and/or Vaping Javier: Never a User Substance use?: No Alcohol Use?: No Pt feels they are or have been: No Immunizations Up To Date Tetanus Booster (TDap): More than 5yrs PED Vaccines UTD: Yes First/Initial COVID19 Vaccinat: UNKNOWN DATE Second COVID19 Vaccination Bladimir: UNKNOWN DATE COVID19 Vaccine Pediatric Care Coordinator: MODERNA Seasonal Allergies Seasonal Allergies: No Past Medical History Surgeries: Yes (bladder sling 1996) Cystectomy, 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, Orthopedic, Tonsillectomy Respiratory: No Cardiac: Yes High Cholesterol, Hypertension Neurological: Yes Stroke (based on MRI) : No Reproductive Disorders: No Female Reproductive Disorders: Denies [employer] SERV[employer]OR History: 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, Menopausal Sexually Transmitted Disease: No HIV/AIDS: No Genitourinary: No Gastrointestinal: Yes Chronic Constipation Musculoskeletal: Yes Degenerate Disk Disease, Chronic Back Pain Endocrine: Yes Hypothyroidsim HEENT: Yes (vision changes age - patient states ) Loss of Vision: Bilateral Hearing Impairment: Denies Cancer: No Psychosocial: Yes Anxiety Integumentary: No Blood Disorders: No Adverse Reaction/Blood Tranf: No Family Medical History Alzheimer's disease Arthritis Asthma Colon cancer Completed stroke Dementia Hypertension Myocardial infarction Visual disorder Cancer, Lung Disease, Other Conditions/Hx Physical Exam Vital Signs Vital Signs - First Documented 05/22/21 08:42 Temp 36.3 Pulse 70 Resp 17 B/P (MAP) 203/97 (132) O2 Delivery Room Air Capillary Refill : Less Than 3 Seconds Height, Weight, BMI Height: 5'5.00" Weight: 140lbs. 0.0oz. [id number]; 22.00 BMI Method:Stated General Appearance: WD/WN, no apparent distress HEENT: PERRL/EOMI, normal ENT inspection, pharynx normal Neck: normal inspection Respiratory: lungs clear, normal breath sounds, no respiratory distress Cardiovascular: regular rate, rhythm, no edema, no murmur Gastrointestinal: normal bowel sounds, non tender, soft Extremities: normal inspection, no pedal edema Neurologic/Psychiatric: ed tech II-XII nml as tested, alert, normal mood/affect, oriented x 3, motor weakness (There appears to be motor weakness of the lower extremities bilateral and a more difficult time with tmvr-lr-scft on the right than the left. After reassessment, it appears to be caused by pain rather than true weakness.) Crainal Nerves: normal hearing, normal speech, PERRL Coordination/Gait: normal finger to nose, other (Decreased function of zgtl-uz-zhfo on the right) Skin: normal color, warm/dry Stroke NIH Stroke Scale Assessment Select: Post CT Level of Consciousness: 0=Alert (0), Level of Consciousness- Questions: 0=Answers both month/age (0), LOC Commands: 0=Performs both tasks (0), Gaze: Normal (0), Visual Johnson: 0=No visual loss (0), Facial Movement (Facial Paresis): 0=Normal symmetrical mnt (0), Motor Function-Arms Right: 0=No drift (0), Motor Function-Arms Left: 0=No drift (0), Motor Function-Legs Right: 1=Drift (1), Motor Function-Legs Left: 1=Drift (1), Limb Ataxia: 1=Present in one limb Appears related to pain. (1), Sensory: 0=Normal:no loss (0), Best Language: 0=No aphasia (0), Dysarthria: 0=Normal (0), Extinction & Inattention: 0=No abnormality (0), Total: 3 Progress/Results/Core Measures Results/Orders Lab Results Laboratory Tests Test 05/22/21 08:43 05/22/21 08:46 05/22/21 10:13 Range/Units Thyroid Stimulating Hormone (TSH) 2.11 0.35-4.94 UIU/ML Free Thyroxine 1.00 0.70-1.48 NG/DL White Blood Count 5.9 4.3-11.0 10^3/uL Red Blood Count 3.71 L 3.80-5.11 10^6/uL Hemoglobin 12.4 11.5-16.0 g/dL Hematocrit 37 35-52 % Mean Corpuscular Volume 100 H 80-99 fL Mean Corpuscular Hemoglobin 33 25-34 pg Mean Corpuscular Hemoglobin Concent 34 32-36 g/dL Red Cell Distribution Width 12.1 10.0-14.5 % Platelet Count 231 130-400 10^3/uL Mean Platelet Volume 10.8 9.0-12.2 fL Immature Granulocyte % (Auto) 0 % Neutrophils (%) (Auto) 45 42-75 % Lymphocytes (%) (Auto) 42 12-44 % Monocytes (%) (Auto) 9 0-12 % Eosinophils (%) (Auto) 3 0-10 % Basophils (%) (Auto) 1 0-10 % Neutrophils # (Auto) 2.6 1.8-7.8 10^3/uL Lymphocytes # (Auto) 2.5 1.0-4.0 10^3/uL Monocytes # (Auto) 0.5 0.0-1.0 10^3/uL Eosinophils # (Auto) 0.2 0.0-0.3 10^3/uL Basophils # (Auto) 0.1 0.0-0.1 10^3/uL Immature Granulocyte # (Auto) 0.0 0.0-0.1 10^3/uL Prothrombin Time 12.8 12.2-14.7 SEC INR Comment 0.9 0.8-1.4 Activated Partial Thromboplast Time 35 24-35 SEC D-Dimer 0.67 H 0.00-0.49 UG/ML Sodium Level 142 135-145 MMOL/L Potassium Level 4.7 3.6-5.0 MMOL/L Chloride Level 105 98-107 MMOL/L Carbon Dioxide Level 24 21-32 MMOL/L Anion Gap 13 5-14 MMOL/L Blood Urea Nitrogen 24 H 7-18 MG/DL Creatinine 1.48 H 0.60-1.30 MG/DL Estimat Glomerular Filtration Rate 34 BUN/Creatinine Ratio 16 Glucose Level 106 H 70-105 MG/DL Calcium Level 9.2 8.5-10.1 MG/DL Corrected Calcium 9.3 8.5-10.1 MG/DL Total Bilirubin 0.4 0.1-1.0 MG/DL Aspartate Amino Transf (AST/SGOT) 33 5-34 U/L Alanine Aminotransferase (ALT/SGPT) 12 0-55 U/L Alkaline Phosphatase 51 40-136 U/L Troponin I < 0.028 <0.028 NG/ML Total Protein 7.1 6.4-8.2 GM/DL Albumin 3.9 3.2-4.5 GM/DL Urine Color YELLOW Urine Clarity CLEAR Urine pH 6.0 5-9 Urine Specific Oxly 1.025 H 1.016-1.022 Urine Protein 2+ H NEGATIVE Urine Glucose (UA) NEGATIVE NEGATIVE Urine Ketones NEGATIVE NEGATIVE Urine Nitrite POSITIVE H NEGATIVE Urine Bilirubin NEGATIVE NEGATIVE Urine Urobilinogen 0.2 < = 1.0 MG/DL Urine Leukocyte Esterase TRACE H NEGATIVE Urine RBC (Auto) NEGATIVE NEGATIVE Urine RBC NONE /HPF Urine WBC 10-25 H /HPF Urine Squamous Epithelial Cells 2-5 /HPF Urine Crystals NONE /LPF Urine Bacteria LARGE H /HPF Urine Casts NONE /LPF Urine Mucus NEGATIVE /LPF Urine Culture Indicated YES My Orders Orders - TIMOTHY TESFAYE MD Cbc With Automated Diff (05/22/21:) Protime With Inr (05/22/21:) Partial Thromboplastin Time (05/22/21:) Comprehensive Metabolic Panel (05/22/21:) Fibrin Degradation Products (05/22/21:) Troponin I (05/22/21:) Ua Culture If Indicated (05/22/21:) Chest 1 View, Ap/Pa Only (05/22/21:) Ekg Tracing (05/22/21:) Nothing By Mouth (05/22/21 Lunch) Accucheck Stat ONCE (05/22/21:) Ed Iv/Invasive Line Start (05/22/21:) Ed Iv/Invasive Line Start (05/22/21:) Vital Signs Stroke Patient Q15M (05/22/21 09:01) Ct Head Wo-R/O Stroke (05/22/21:) O2 (05/22/21:01) Intake & Output 06,14,22 (05/22/21 09:01) Monitor-Rhythm Ecg Trace Only (05/22/21:01) Dysphagia Screening Tool (05/22/21 09:) Lipid Panel (05/23/21 06:00) Thyroid Stimulating Hormone (05/22/21 09:10) Free T4 (Free Thyroxine) (05/22/21 09:10) Ondansetron Injection (Zofran Injectio (05/22/21 09:15) Orthostatic Vital Signs (Adult (05/22/21 09:52) Ns Iv 500 Ml (Sodium Chloride 0.9%) (05/22/21 10:00) Urine Culture (05/22/21 10:13) Ceftriaxone 1 Gm Pre-Mix (Rocephin 1 Gm (05/22/21 10:34) Ns (Ivpb) (Sodium Chloride 0.9%) (05/22/21 10:59) Ns (Ivpb) (Sodium Chloride 0.9%) (05/22/21 11:30) Medications Given in ED Current Medications Medications Dose Ordered Sig/Deborah Route Start Time Stop Time Status Last Admin Dose Admin Ondansetron HCl 4 mg ONCE ONCE IVP 05/22/21 09:15 05/22/21 09:16 DC 05/22/21 09:26 4 MG Sodium Chloride 250 ml @ ud STK-MED ONCE .ROUTE 05/22/21 10:59 05/22/21 11:01 DC 05/22/21 11:01 999 MLS/HR Sodium Chloride 500 ml @ 0 mls/hr Q0M ONCE IV 05/22/21 10:00 05/22/21 10:01 DC 05/22/21 10:22 999 MLS/HR Vital Signs/I&O 05/22/21 05/22/21 08:42 10:14 Temp 36.3 Pulse 70 67 70 90 Resp 17 B/P (MAP) 203/97 (132) 172/80 (110) 151/74 (99) 107/48 (67) O2 Delivery Room Air Blood Pressure Mean: 132 Progress Progress Note #1: Time: 09:56 Progress Note Patient is feeling improved at this time. Blood pressure is trending down. CT of the head was unremarkable. Creatinine is bumped a little bit from her basel ine. I have ordered a normal saline 500 mL bolus. We will check orthostatic blood pressures and to do a trial of ambulation. UA is pending. CT angiogram has not been obtained due to low NIH score of 3 and low GFR. Progress Note #2: Time: 11:07 Progress Note Patient's orthostatic blood pressure prior to IV fluids was 172/80 lying and 107/48 standing with heart rates of 67 and 90 respectively. After hydration her standing blood pressure was 134/77 with a heart rate of 79. Hydration status most certainly is playing a role in her symptoms. She does feel better standing up after hydration. The weakness in her legs has improved as well and she seems to have less pain. After further conversation about her leg weakness issues, that seems to be more related to pain than true weakness. These are long-term problems. She denies any changes in her bowel or bladder function or saddle paresthesia. She does have chronic issues with bladder control and constipation but those are unchanged acutely. Patient expresses a strong desire to return home. Her supine blood pressure at present is 190/97. I inquired about her anxiety. She states that she becomes significantly anxious when contemplating the potential of needing to return to the hospital or [facility]ci, and she does think that plays a role in her hypertension. Urinary tract infection was identified on urinalysis, and a dose of Rocephin was administered. I have discussed the situation with Dr. Hernandez. She is agreeable to discharge home with outpatient follow-up with caution. She has recommended that the patient receive assistance with filling her pill organizer and applying thigh-high MATT hose daily. I will have her follow-up soon with Dr. Hernandez and Dr. Quinn to discuss her blood pressure issues and have a repeat blood pressure check outside of the hospital setting. Patient reiterates that she feels safe at home and would like to go home. She feels she will worsen if she stays in the hospital. She will have received a total of 750 mL normal saline by IV route prior to discharge. Progress Note #3: Time: 11:29 Progress Note While reviewing discharge instructions, patient stated she had only been using knee-high stockings, not the thigh-high stockings. I reviewed instructions regarding using the thigh-high stockings during the day while her helpers are there to assist her. She also reported that her helpers line out her pillbox for the week so her dosing should be accurate. Initial ECG Impression Date: May 22, 2021 Initial ECG Impression Time: 09:06 Initial ECG Rate: 67 Initial ECG Rhythm: Normal Sinus Comment Sinus rhythm with no ST elevation or depression. No abnormal intervals or axis deviation. Diagnostic Imaging Diagonstic Imaging: CT Plain Films/CT/US/NM/MRI: head Comments CT head discussed with radiologist. Preliminary report reviewed. See report below: NAME: CARIN BECK [facility] REC#: [id number] PT STATUS: REG ER : 1940 PHYSICIAN: TIMOTHY TESFAYE MD ADMIT DATE: 05/22/21/ER Draft Date of Exam:05/22/21 CT HEAD WO-R/O STROKE Clinical indication: Patient with hypertension, nausea, right-sided headache and shakiness and bilateral leg numbness. Exam: Axial CT scan of the brain performed without IV contrast. High-resolution axial CT brain images with sagittal and coronal reformations were also created. Auto Exposure Controls were utilized during the CT exam to meet ALARA standards for radiation dose reduction. COMPARISON: Head CT without contrast dated 05/05/2021. FINDINGS: There is no evidence of acute cerebral infarct, intracranial hemorrhage, or gross mass effect. There is no dense vessel sign. The brain parenchymal volume appears appropriate for patient's age. Again noted prominence of the intracranial extra-axial CSF space which may be related to brain parenchymal volume loss. There is no significant change to the diffuse patchy and confluent areas of low-attenuation white matter changes involving both cerebral hemispheres and periventricular regions, likely representing chronic small vessel ischemic disease and leukoaraiosis. There is normal linda-white matter distinction. There is no significant midline shift or herniation. There is no evidence of hydrocephalus. 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 The basal cisterns are unremarkable. The skull, extracranial soft tissue, and orbits are unremarkable. The paranasal sinuses are unremarkable. Temporal bones show no significant abnormality. IMPRESSION: Stable CT scan of the brain with no evidence of acute intracranial process. There is no dense vessel sign. Results of this report discussed with Dr. Timothy Bah via the telephone on 05/22/2021 at 0925 hours. Dictated on workstation # [id number] Dict: 05/22/21920 Trans: 05/22/21927 [id number] Interpreted by: JEANNA DELEON MD Diagonstic Imaging: Xray Plain Films/CT/US/NM/MRI: chest Comments NAME: CARIN BECK [facility] REC#: [id number] PT STATUS: REG ER : 1940 PHYSICIAN: TIMOTHY TESFAYE MD ADMIT DATE: 05/22/21/ER Signed Date of Exam:05/22/21 CHEST 1 VIEW, AP/PA ONLY INDICATION: Dizziness with stroke like symptoms. EXAMINATION: Chest 05/22/2021 COMPARISON: 04/21/2020 FINDINGS: Heart and pulmonary vasculature normal. Lungs and pleural spaces clear. No pneumothorax or pleural effusions. There is interval change in appearance of the distal left clavicle perhaps due to an old fracture which appears nonunited. IMPRESSION: 1. No acute cardiopulmonary process. Dictated by: Dictated on workstation # [id number] Dict: 05/22/21922 Trans: 05/22/21931 [facility] [id number] Interpreted by: JACEY ALTAMIRANO MD Electronically signed by: JACEY ALTAMIRANO MD 05/22/21931 Departure Impression Primary Impression: Orthostatic hypotension Additional Impressions: Episode of hypertension UTI (urinary tract infection) Qualified Codes: N39.0 - Urinary tract infection, site not specified Hypovolemia Bilateral leg weakness Bilateral leg pain Disposition: HOME, SELF-CARE Condition: Improved Departure-Patient Inst. Decision time for Depature: 11:12 Referrals: YADIEL HERNANDEZ DO (PCP/Family) Primary Care Physician Patient Instructions: Urinary Tract Infection, Adult ED Add. Discharge Instructions: Drink plenty of clear liquids to stay well-hydrated. Complete your antibiotic as prescribed. Follow-up with Dr. HERNANDEZ by early next week to review your urine culture results and to have your blood pressure checked again. Your urine culture results should be available by Friday. You may call the ER for results on Friday if desired. Continue taking your medications as previously prescribed. Use your thigh-high compression stockings for 12 hours during the day each day. Have your home helpers assist you with taking them on and off if needed. This is an important step in preventing you from having drops in blood pressure when you stand up. Also have your home helpers assist with filling your pill organizer and double checking your doses each day. Follow-up with Dr. Hernandez and Dr. Quinn as soon as possible. Call their offices today if you do not already have appointments established. For pain you may take Ultram (tramadol) as prescribed as well as Tylenol (acetaminophen) up to 650 mg every 6 hours as needed. Tramadol may cause constipation, and you should consider taking a stool softener daily if you take tramadol. Call the ER if you have questions or concerns. Return to the ER if you have worsening symptoms. All discharge instructions reviewed with patient and/or family. Voiced understanding. Scripts Cephalexin (Cephalexin) 500 Mg Tablet 500 MG PO TID, #20 TAB Prov: TIMOTHY TESFAYE MD 05/22/21 Copy Copies To 1: YADIEL HERNANDEZ DO Copies To 2: DIANE QUINN MD, JOSHUA T MD May 22, 2021 09:07
[2021-05-22 09:11] LABS: ALBUMIN 3.9 GM/DL (3.2-4.5); CHLORIDE 105 MMOL/L (98-107); POTASSIUM 4.7 MMOL/L (3.6-5.0); SODIUM 142 MMOL/L (135-145)
[2021-05-22 09:12] LABS: CALCIUM 9.2 MG/DL (8.5-10.1)
[2021-05-22 09:13] LABS: GLUCOSE 106 MG/DL (70-105); TOTAL PROTEIN 7.1 GM/DL (6.4-8.2)
[2021-05-22 09:14] LABS: CARBON DIOXIDE 24 MMOL/L (21-32); FIBRIN DEGRADATION PRODUCTS 0.67 UG/ML (0.00-0.49); INR 0.9 (0.8-1.4); PROTHROMBIN TIME PATIENT 12.8 SEC (12.2-14.7)
[2021-05-22 09:15] LABS: BILIRUBIN,TOTAL 0.4 MG/DL (0.1-1.0)
[2021-05-22] MEDS ORDERED: ONDANSETRON 4 MG/2 ML (SDV) Z0FRAN IVP ONE (09:15)
[2021-05-22 09:17] LABS: ALKALINE PHOSPHATASE 51 U/L (40-136); CREATININE SERUM 1.48 MG/DL (0.60-1.30); GFR ESTIMATED 34
[2021-05-22 09:18] LABS: BUN/CREATININE RATIO 16
[2021-05-22 09:20] LABS: ALANINE AMINOTRANSFERASE 12 U/L (0-55)
--- NOTE | 2021-05-22 09:27 | Diagnostic Imaging Report ---
INDICATION: Dizziness with stroke like symptoms. EXAMINATION: Chest 05/22/2021 COMPARISON: 04/21/2020 FINDINGS: Heart and pulmonary vasculature normal. Lungs and pleural spaces clear. No pneumothorax or pleural effusions. There is interval change in appearance of the distal left clavicle perhaps due to an old fracture which appears nonunited. IMPRESSION: 1. No acute cardiopulmonary process. Dictated by: Dictated on workstation # [id number]
--- NOTE | 2021-05-22 09:28 | Diagnostic Imaging Report ---
Clinical indication: Patient with hypertension, nausea, right-sided headache and shakiness and bilateral leg numbness. Exam: Axial CT scan of the brain performed without IV contrast. High-resolution axial CT brain images with sagittal and coronal reformations were also created. Auto Exposure Controls were utilized during the CT exam to meet ALARA standards for radiation dose reduction. COMPARISON: Head CT without contrast dated 05/05/2021. FINDINGS: There is no evidence of acute cerebral infarct, intracranial hemorrhage, or gross mass effect. There is no dense vessel sign. The brain parenchymal volume appears appropriate for patient's age. Again noted prominence of the intracranial extra-axial CSF space which may be related to brain parenchymal volume loss. There is no significant change to the diffuse patchy and confluent areas of low-attenuation white matter changes involving both cerebral hemispheres and periventricular regions, likely representing chronic small vessel ischemic disease and leukoaraiosis. There is normal linda-white matter distinction. There is no significant midline shift or herniation. There is no evidence of hydrocephalus. 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 The basal cisterns are unremarkable. The skull, extracranial soft tissue, and orbits are unremarkable. The paranasal sinuses are unremarkable. Temporal bones show no significant abnormality. IMPRESSION: Stable CT scan of the brain with no evidence of acute intracranial process. There is no dense vessel sign. Results of this report discussed with Dr. Timothy Bah via the telephone on 05/22/2021 at 0925 hours. Dictated by: Dictated on workstation # [id number]
[2021-05-22] MEDS ORDERED: NS IV 500 ML 500 ML IV ONE (10:00)
[2021-05-22 10:14] VITALS: BP_SYST 107; BP_SYST 151; BP_SYST 172; BP_DIAS 48; BP_DIAS 74; BP_DIAS 80
[2021-05-22 10:18] LABS: BILIRUBIN,URINE NEGATIVE (NEGATIVE); CLARITY,URINE CLEAR; COLOR,URINE YELLOW; GLUCOSE, URINE (UA) NEGATIVE (NEGATIVE); KETONES,URINE NEGATIVE (NEGATIVE); LEUKOCYTE ESTERASE ,URINE TRACE (NEGATIVE); NITRITE,URINE POSITIVE (NEGATIVE); PROTEIN,URINE 2+ (NEGATIVE)
[2021-05-22 10:25] LABS: BACTERIA,URINE LARGE /HPF
[2021-05-22] MEDS ORDERED: cefTRIAXone 1 GM PRE-MIX 50 ML IV STA (10:34)
[2021-05-22] MEDS ORDERED: NS (IVPB) 250 ML ONE (10:59)
[2021-05-22] MEDS ORDERED: CEPH500T PO (11:16)
[2021-05-22] MEDS ORDERED: NS (IVPB) 250 ML IV ONE (11:30)
[2021-05-22 11:32] VITALS: BP 149/78
== END 2021-05-22 11:32 | disposition home or self-care (01) ==
LOC: EDUNIT# 08:34 → ER 08:37
DX: I95.1 Orthostatic hypotension (principal); I10 Essential (primary) hypertension; N39.0 Urinary tract infection, site not specified; E86.1 Hypovolemia; R53.1 Weakness; M79.605 Pain in left leg; M79.604 Pain in right leg; F41.9 Anxiety disorder, unspecified; G89.29 Other chronic pain; M54.9 Dorsalgia, unspecified; Z86.73 Personal history of transient ischemic attack (TIA), and cerebral infarction without residual deficits; Z79.891 Long term (current) use of opiate analgesic; Z79.899 Other long term (current) drug therapy
CPT/HCPCS: 36415; 70450; 71045; 80053; 81000; 84439; 84443; 84484; 85025; 85379; 85610; 85730; 87077; 87088; 87186; 93005; 93041

== ENCOUNTER 2021-07-08 13:12 | Emergency (ER) | payer MEDICARE ==
[~2021-07-08] VITALS: Ht 167 cm; Wt 62.6 kg
[~2021-07-08 13:12] MED LIST changes: +CEPH500T PO
--- NOTE | 2021-07-08 13:49 | ED Cardiac General ---
History of Present Illness General Chief Complaint: Cardiac/General Problems Stated Complaint: HIGH BLOOD PRESSURE Source: patient Exam Limitations: no limitations History of Present Illness Date Seen by Provider: Jul 08, 2021 Time Seen by Provider: 13:46 Initial Comments To ER by private vehicle with reports of chronic high blood pressure that is higher than usual today. Typically she runs around 200/100 despite her losartan 50 mg twice daily and hydralazine 10 mg 3 times daily. However today after those medications she was still at 224/99. No fevers no chills. Denies chest pain or shortness of breath. She does have general fatigue which seems to be a bit worse today than usual. She also reports chronic fullness in both lower extremities from the knees down to the toes. 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: No ASA po MILLER HELPER DISTILLERY: No Associated Systoms: Denies Symptoms Allergies and Home Medications Allergies Coded Allergies: Milk Containing Products (Unverified Allergy, Unknown, 04/19/13) FROM UNCODED LIST codeine (Verified Allergy, Unknown, 10/11/20) erythromycin base (Unverified Allergy, Unknown, 08/29/06) metaxalone (Verified Allergy, Unknown, 10/11/20) Patient Home Medication List Home Medication List Reviewed: Yes ALPRAZolam (ALPRAZolam) 0.25 Mg Tablet, 0.125 MG PO BID PRN for ANXIETY Prescribed by: YADIEL ARAUJO on 03/15/21 1256 Acetaminophen (Acetaminophen) 325 Mg Tablet, 650 MG PO Q4H PRN for PAIN-MILD (1- 4) Prescribed by: YADIEL ARAUJO on 03/20/21 1248 Cephalexin (Cephalexin) 500 Mg Tablet, 500 MG PO TID Prescribed by: ALBIN CASAS on 05/22/21 1116 Cholecalciferol (Vitamin D3) (Vitamin D3) 125 Mcg Tablet, 125 MCG PO DAILY Prescribed by: YADIEL ARAUJO on 03/20/21 1249 Docusate Sodium (Dok) 100 Mg Capsule, 100 MG PO BID Prescribed by: YADIEL ARAUJO on 03/20/21 1248 Famotidine (Famotidine) 20 Mg Tablet, 20 MG PO BID Prescribed by: YADIEL ARAUJO on 03/15/21 1256 Hydralazine HCl (Hydralazine HCl) 10 Mg Tablet, 10 MG PO TID Prescribed by: YADIEL ARAUJO on 03/20/21 1248 Losartan Potassium (Losartan Potassium) 50 Mg Tablet, 50 MG PO DAILY Prescribed by: YADIEL ARAUJO on 03/16/21 0951 Magnesium Oxide (Magnesium Oxide) 400 Mg Tablet, 400 MG PO BIDPC Prescribed by: YADIEL ARAUJO on 03/20/21 1248 Meloxicam (Meloxicam) 7.5 Mg Tablet, 7.5 MG PO DAILY Prescribed by: YADIEL ARAUJO on 03/15/21 1257 Ondansetron HCl (Zofran) 4 Mg Tab, 4 MG PO Q6H PRN for NAUSEA-1ST LINE Prescribed by: JACOB THOMSON on 03/20/21 1634 Potassium Chloride (Klor-Con M20) 20 Meq Tab.er.prt, 20 MEQ PO DAILY@0700 Prescribed by: YADIEL ARAUJO on 03/20/21 1248 Tramadol HCl (Tramadol HCl) 50 Mg Tablet, 50 MG PO TID PRN for PAIN-MODERATE (5- 7) Prescribed by: YADIEL ARAUJO on 03/15/21 1256 Venlafaxine HCl (Venlafaxine HCl) 37.5 Mg Tab, 37.5 MG PO BID Prescribed by: YADIEL ARAUJO on 03/15/21 1256 Review of Systems Review of Systems Constitutional: see HPI EENTM: No Symptoms Reported Respiratory: No Symptoms Reported Cardiovascular: No Symptoms Reported Gastrointestinal: No Symptoms Reported Genitourinary: No Symptoms Reported Musculoskeletal: no symptoms reported Skin: no symptoms reported Psychiatric/Neurological: No Symptoms Reported Endocrine: No Symptoms Reported Hematologic/Lymphatic: No Symptoms Reported Past Nmqxrlt-Mvjkfk-Jloxnl Hx Immunizations Up To Date Tetanus Booster (TDap): More than 5yrs PED Vaccines UTD: Yes First/Initial COVID19 Vaccinat: UNKNOWN DATE Second COVID19 Vaccination Bladimir: UNKNOWN DATE Seasonal Allergies Seasonal Allergies: No Past Medical History Surgeries: Yes (bladder sling 1996) Cystectomy, 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, Orthopedic, Tonsillectomy Respiratory: No Cardiac: Yes High Cholesterol, Hypertension Neurological: Yes Stroke Reproductive Disorders: No 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, 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 Sexually Transmitted Disease: No HIV/AIDS: No Genitourinary: No Gastrointestinal: Yes Chronic Constipation Musculoskeletal: Yes Degenerate Disk Disease, Chronic Back Pain Endocrine: Yes Hypothyroidsim HEENT: Yes (vision changes age - patient states ) Loss of Vision: Bilateral Hearing Impairment: Denies Cancer: No Psychosocial: Yes Anxiety Integumentary: No Blood Disorders: No Adverse Reaction/Blood Tranf: No Family Medical History Alzheimer's disease Arthritis Asthma Colon cancer Completed stroke Dementia Hypertension Myocardial infarction Visual disorder Cancer, Lung Disease, Other Conditions/Hx Physical Exam Vital Signs Vital Signs - First Documented 07/08/21 13:39 Temp 35.8 Pulse 73 Resp 20 B/P (MAP) 224/99 (140) Pulse Ox 97 O2 Delivery Room Air Capillary Refill : Height, Weight, BMI Height: 5'5.00" Weight: 140lbs. 0.0oz. 63.070977kw; 22.00 BMI Method:Stated General Appearance: No Apparent Distress, WD/WN Neck: Full Range of Motion, Normal Inspection Respiratory: No Accessory Muscle Use, No Respiratory Distress Cardiovascular: Regular Rate, Rhythm, Normal Peripheral Pulses Gastrointestinal: Normal Bowel Sounds, Non Tender, Soft Extremity: Normal Capillary Refill, Normal Inspection Neurologic/Psychiatric: Alert, Oriented x3 Skin: Normal Color, Warm/Dry Progress/Results/Core Measures Results/Orders Lab Results Laboratory Tests Test 07/08/21 13:45 Range/Units White Blood Count 6.4 4.3-11.0 10^3/uL Red Blood Count 3.79 L 3.80-5.11 10^6/uL Hemoglobin 12.2 11.5-16.0 g/dL Hematocrit 39 35-52 % Mean Corpuscular Volume 102 H 80-99 fL Mean Corpuscular Hemoglobin 32 25-34 pg Mean Corpuscular Hemoglobin Concent 32 32-36 g/dL Red Cell Distribution Width 12.8 10.0-14.5 % Platelet Count 232 130-400 10^3/uL Mean Platelet Volume 10.8 9.0-12.2 fL Immature Granulocyte % (Auto) 0 % Neutrophils (%) (Auto) 59 42-75 % Lymphocytes (%) (Auto) 30 12-44 % Monocytes (%) (Auto) 9 0-12 % Eosinophils (%) (Auto) 1 0-10 % Basophils (%) (Auto) 1 0-10 % Neutrophils # (Auto) 3.8 1.8-7.8 10^3/uL Lymphocytes # (Auto) 1.9 1.0-4.0 10^3/uL Monocytes # (Auto) 0.6 0.0-1.0 10^3/uL Eosinophils # (Auto) 0.1 0.0-0.3 10^3/uL Basophils # (Auto) 0.1 0.0-0.1 10^3/uL Immature Granulocyte # (Auto) 0.0 0.0-0.1 10^3/uL Sodium Level 138 135-145 MMOL/L Potassium Level 4.8 3.6-5.0 MMOL/L Chloride Level 105 98-107 MMOL/L Carbon Dioxide Level 23 21-32 MMOL/L Anion Gap 10 5-14 MMOL/L Blood Urea Nitrogen 31 H 7-18 MG/DL Creatinine 1.52 H 0.60-1.30 MG/DL Estimat Glomerular Filtration Rate 33 BUN/Creatinine Ratio 20 Glucose Level 91 70-105 MG/DL Calcium Level 9.3 8.5-10.1 MG/DL Corrected Calcium 9.3 8.5-10.1 MG/DL Total Bilirubin 0.4 0.1-1.0 MG/DL Aspartate Amino Transf (AST/SGOT) 31 5-34 U/L Alanine Aminotransferase (ALT/SGPT) 18 0-55 U/L Alkaline Phosphatase 57 40-136 U/L Total Protein 7.2 6.4-8.2 GM/DL Albumin 4.0 3.2-4.5 GM/DL My Orders Orders - KIESHA JOYNER APRN Cbc With Automated Diff (07/08/21 13:46) Comprehensive Metabolic Panel (07/08/21 13:46) Ed Iv/Invasive Line Start (07/08/21 13:46) Clonidine Tablet (Catapres Tablet) (07/08/21 14:00) Medications Given in ED Current Medications Medications Dose Ordered Sig/Deborah Route Start Time Stop Time Status Last Admin Dose Admin Clonidine HCl 0.2 mg ONCE ONCE PO 07/08/21 14:00 07/08/21 14:01 DC 07/08/21 13:55 0.2 MG Vital Signs/I&O 07/08/21 13:39 Temp 35.8 Pulse 73 Resp 20 B/P (MAP) 224/99 (140) Pulse Ox 97 O2 Delivery Room Air Departure Impression Primary Impression: Episode of hypertension Additional Impression: Bilateral leg pain Disposition: 01 HOME, SELF-CARE Condition: Stable Departure-Patient Inst. Decision time for Depature: 14:35 Referrals: YADIEL ARAUJO DO (PCP/Family) Primary Care Physician Patient Instructions: High Blood Pressure Emergencies Add. Discharge Instructions: 1.. Add the amlodipine blood pressure medication to your regimen. Follow-up with Dr. ARAUJO later this week. All discharge instructions reviewed with patient and/or family. Voiced understanding. Scripts Amlodipine Besylate (Amlodipine Besylate) 5 Mg Tablet 5 MG PO DAILY, #14 TAB Prov: KIESHA JOYNER APRN 07/08/21 KIESHA JOYNER APRN Jul 08, 2021 13:49
[2021-07-08] MEDS ORDERED: cloNIDine 0.1 MG (CATAPRES) TAB PO ONE (14:00)
[2021-07-08 14:04] LABS: BASOPHILS # (AUTO) 0.1 10^3/uL (0.0-0.1); BASOPHILS % (AUTO) 1 % (0-10); EOSINOPHILS # (AUTO) 0.1 10^3/uL (0.0-0.3); EOSINOPHILS % (AUTO) 1 % (0-10); HEMATOCRIT 39 % (35-52); HEMOGLOBIN 12.2 g/dL (11.5-16.0); LYMPHOCYTES # (AUTO) 1.9 10^3/uL (1.0-4.0); LYMPHOCYTES % (AUTO) 30 % (12-44); MEAN CORPUSCULAR HEMOGLOBIN 32 pg (25-34); MEAN CORPUSCULAR HGB CONC 32 g/dL (32-36); MEAN CORPUSCULAR VOLUME 102 fL (80-99); MEAN PLATELET VOLUME 10.8 fL (9.0-12.2); MONOCYTES # (AUTO) 0.6 10^3/uL (0.0-1.0); MONOCYTES % (AUTO) 9 % (0-12); NEUTROPHILS # (AUTO) 3.8 10^3/uL (1.8-7.8); NEUTROPHILS % (AUTO) 59 % (42-75); PLATELET COUNT 232 10^3/uL (130-400); WHITE BLOOD COUNT 6.4 10^3/uL (4.3-11.0)
[2021-07-08 14:22] LABS: POTASSIUM 4.8 MMOL/L (3.6-5.0)
[2021-07-08 14:23] LABS: CALCIUM 9.3 MG/DL (8.5-10.1)
[2021-07-08 14:24] LABS: TOTAL PROTEIN 7.2 GM/DL (6.4-8.2)
[2021-07-08 14:26] LABS: BILIRUBIN,TOTAL 0.4 MG/DL (0.1-1.0)
[2021-07-08 14:28] LABS: CREATININE SERUM 1.52 MG/DL (0.60-1.30)
[2021-07-08] MEDS ORDERED: AMLO-250 PO (14:36)
[2021-07-08 15:15] VITALS: BP 155/73
== END 2021-07-08 15:15 | disposition home or self-care (01) ==
LOC: EDUNIT# 13:12 → ER 13:15
DX: I10 Essential (primary) hypertension (principal); M79.605 Pain in left leg; M79.604 Pain in right leg; F41.9 Anxiety disorder, unspecified; G89.29 Other chronic pain; M54.9 Dorsalgia, unspecified; Z86.73 Personal history of transient ischemic attack (TIA), and cerebral infarction without residual deficits; Z79.899 Other long term (current) drug therapy; Z79.891 Long term (current) use of opiate analgesic
CPT/HCPCS: 36415; 80053; 85025; 93005

== ENCOUNTER 2021-08-04 14:25 | Observation (INO) | payer MEDICARE, OTHER ==
[~2021-08-04] VITALS: Ht 167.7 cm; Wt 61.2 kg
[2021-08-04] MEDS ORDERED: NS IV 1000 ML 1,000 ML IV STA (14:51)
--- NOTE | 2021-08-04 14:55 | ED Abdominal Pain ---
General Stated Complaint: N/V Source of Information: Patient Exam Limitations: No Limitations (DAMIR BLEDSOE) History of Present Illness Date Seen by Provider: Aug 04, 2021 Time Seen by Provider: 14:53 Initial Comments Patient is a 80-year-old female with a history of hypertension, orthostatic hypotension, coronary artery disease who presents ED for vomiting. She states she vomits when she gets up and moves around. She states her head feels funny and her abdomen " feels nauseous" but denies any specific pain. Normal urination. She reports she has felt constipated but did use a suppository today without much improvement of her discomfort. She reports symptoms of nausea and vomiting for several months. [facility]. She has no current chest pain, shortness of breath, cough, headache, dizziness, visual changes. Denies any urinary symptoms. Patient presents the ED today secondary to her son wanting her to get evaluation for her symptoms (DAMIR BLEDSOE) Allergies and Home Medications Allergies Coded Allergies: Milk Containing Products (Unverified Allergy, Unknown, 04/19/13) FROM UNCODED LIST codeine (Verified Allergy, Unknown, 10/11/20) erythromycin base (Unverified Allergy, Unknown, 08/29/06) metaxalone (Verified Allergy, Unknown, 10/11/20) Patient Home Medication List Home Medication List Reviewed: Yes (DAMIR BLEDSOE) ALPRAZolam (ALPRAZolam) 0.25 Mg Tablet, 0.125 MG PO BID PRN for ANXIETY Prescribed by: YADIEL ARAUJO on 03/15/21 1256 Acetaminophen (Acetaminophen) 325 Mg Tablet, 650 MG PO Q4H PRN for PAIN-MILD (1- 4) Prescribed by: YADIEL ARAUJO on 03/20/21 1248 Amlodipine Besylate (Amlodipine Besylate) 5 Mg Tablet, 5 MG PO DAILY Prescribed by: KIESHA JOYNER on 07/08/21 1436 Cephalexin (Cephalexin) 500 Mg Tablet, 500 MG PO TID Prescribed by: ALBIN CASAS on 05/22/21 1116 Cholecalciferol (Vitamin D3) (Vitamin D3) 125 Mcg Tablet, 125 MCG PO DAILY Prescribed by: YADIEL ARAUJO on 03/20/21 1249 Docusate Sodium (Dok) 100 Mg Capsule, 100 MG PO BID Prescribed by: YADIEL ARAUJO on 03/20/21 1248 Famotidine (Famotidine) 20 Mg Tablet, 20 MG PO BID Prescribed by: YADIEL ARAUJO on 03/15/21 1256 Hydralazine HCl (Hydralazine HCl) 10 Mg Tablet, 10 MG PO TID Prescribed by: YADIEL ARAUJO on 03/20/21 1248 Losartan Potassium (Losartan Potassium) 50 Mg Tablet, 50 MG PO DAILY Prescribed by: YADIEL ARAUJO on 03/16/21 0951 Magnesium Oxide (Magnesium Oxide) 400 Mg Tablet, 400 MG PO BIDPC Prescribed by: YADIEL ARAUJO on 03/20/21 1248 Meloxicam (Meloxicam) 7.5 Mg Tablet, 7.5 MG PO DAILY Prescribed by: YADIEL ARAUJO on 03/15/21 1257 Ondansetron HCl (Zofran) 4 Mg Tab, 4 MG PO Q6H PRN for NAUSEA-1ST LINE Prescribed by: JACOB THOMSON on 03/20/21 1634 Potassium Chloride (Klor-Con M20) 20 Meq Tab.er.prt, 20 MEQ PO DAILY@0700 Prescribed by: YADIEL ARAUJO on 03/20/21 1248 Tramadol HCl (Tramadol HCl) 50 Mg Tablet, 50 MG PO TID PRN for PAIN-MODERATE (5- 7) Prescribed by: YADIEL ARAUJO on 03/15/21 1256 Venlafaxine HCl (Venlafaxine HCl) 37.5 Mg Tab, 37.5 MG PO BID Prescribed by: YADIEL ARAUOJ on 03/15/21 1256 Review of Systems Review of Systems Constitutional: No chills; dizziness; No fever EENTM: No Double Vision, No Mouth Pain, No Throat Pain Respiratory: Denies Cough, Denies SOA With Exertion, Denies Wheezing Cardiovascular: Denies Chest Pain, Denies Edema, Denies Irregular Heart Rate Gastrointestinal: Abdominal Pain; Denies Diarrhea; Nausea, Vomiting Genitourinary: Denies Burning, Denies Drainage, Denies Frequency, Denies Flank Pain Musculoskeletal: No back pain, No gout Skin: No change in color, No change in hair/nails (DAMIR BLEDSOE) Past Lwzulpv-Guhnan-Xnbkmt Hx Immunizations Up To Date Tetanus Booster (TDap): More than 5yrs PED Vaccines UTD: Yes First/Initial COVID19 Vaccinat: UNKNOWN DATE Second COVID19 Vaccination Bladimir: 08/2020 (DAMIR BLEDSOE) Seasonal Allergies Seasonal Allergies: No (DAMIR BLEDSOE) Past Medical History Surgeries: Yes (bladder sling 1996) Cystectomy, 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, Orthopedic, Tonsillectomy Respiratory: No Cardiac: Yes High Cholesterol, Hypertension Neurological: Yes Stroke Reproductive Disorders: No 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, 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 Sexually Transmitted Disease: No HIV/AIDS: No Genitourinary: No Gastrointestinal: Yes Chronic Constipation Musculoskeletal: Yes Degenerate Disk Disease, Chronic Back Pain Endocrine: Yes Hypothyroidsim HEENT: Yes (vision changes age - patient states ) Loss of Vision: Bilateral Hearing Impairment: Denies Cancer: No Psychosocial: Yes Anxiety Integumentary: No Blood Disorders: No Adverse Reaction/Blood Tranf: No (DAMIR BLEDSOE) Family Medical History Alzheimer's disease Arthritis Asthma Colon cancer Completed stroke Dementia Hypertension Myocardial infarction Visual disorder Cancer, Lung Disease, Other Conditions/Hx (DAMIR BLEDSOE) Physical Exam Vital Signs Vital Signs - First Documented 08/04/21 14:45 Temp 36.0 Pulse 94 Resp 20 B/P (MAP) 170/98 (122) Pulse Ox 99 O2 Delivery Room Air (ALBIN TESFAYE MD) Vital Signs Capillary Refill : (DAMIR BLEDSOE) Height/Weight/BMI Height: 5'5.00" Weight: 140lbs. 0.0oz. 63.754438mh; 22.00 BMI Method:Stated General Appearance: WD/WN, no apparent distress HEENT: PERRL/EOMI, normal ENT inspection, TMs normal, pharynx normal Neck: non-tender, full range of motion, supple Respiratory: chest non-tender, lungs clear, normal breath sounds, no respiratory distress, no accessory muscle use Cardiovascular: regular rate, rhythm, no edema, no gallop, no JVD Gastrointestinal: normal bowel sounds, non tender, soft, no organomegaly Extremities: normal range of motion, non-tender, normal inspection Back: normal inspection, no CVA tenderness (DAMIR BLEDSOE) Progress/Results/Core Measures Results/Orders Lab Results Laboratory Tests Test 08/04/21 14:50 08/04/21 15:30 08/04/21 15:45 08/04/21 17:25 Range/Units White Blood Count 7.5 4.3-11.0 10^3/uL Red Blood Count 3.82 3.80-5.11 10^6/uL Hemoglobin 12.5 11.5-16.0 g/dL Hematocrit 38 35-52 % Mean Corpuscular Volume 99 80-99 fL Mean Corpuscular Hemoglobin 33 25-34 pg Mean Corpuscular Hemoglobin Concent 33 32-36 g/dL Red Cell Distribution Width 12.9 10.0-14.5 % Platelet Count 253 130-400 10^3/uL Mean Platelet Volume 9.9 9.0-12.2 fL Immature Granulocyte % (Auto) 0 % Neutrophils (%) (Auto) 56 42-75 % Lymphocytes (%) (Auto) 34 12-44 % Monocytes (%) (Auto) 7 0-12 % Eosinophils (%) (Auto) 2 0-10 % Basophils (%) (Auto) 1 0-10 % Neutrophils # (Auto) 4.2 1.8-7.8 X 10^3 Lymphocytes # (Auto) 2.6 1.0-4.0 X 10^3 Monocytes # (Auto) 0.5 0.0-1.0 X 10^3 Eosinophils # (Auto) 0.2 0.0-0.3 10^3/uL Basophils # (Auto) 0.1 0.0-0.1 10^3/uL Immature Granulocyte # (Auto) 0.0 0.0-0.1 10^3/uL Sodium Level 142 135-145 MMOL/L Potassium Level 4.0 3.6-5.0 MMOL/L Chloride Level 106 98-107 MMOL/L Carbon Dioxide Level 23 21-32 MMOL/L Anion Gap 13 5-14 MMOL/L Blood Urea Nitrogen 30 H 7-18 MG/DL Creatinine 1.57 H 0.60-1.30 MG/DL Estimat Glomerular Filtration Rate 33 BUN/Creatinine Ratio 19 Glucose Level 119 H 70-105 MG/DL Calcium Level 9.8 8.5-10.1 MG/DL Corrected Calcium 9.6 8.5-10.1 MG/DL Total Bilirubin 0.4 0.1-1.0 MG/DL Aspartate Amino Transf (AST/SGOT) 33 5-34 U/L Alanine Aminotransferase (ALT/SGPT) 22 0-55 U/L Alkaline Phosphatase 51 40-136 U/L Total Protein 7.6 6.4-8.2 GM/DL Albumin 4.2 3.2-4.5 GM/DL Lipase 47 8-78 U/L Influenza Type A Antigen NEGATIVE NEGATIVE Influenza Type B Antigen NEGATIVE NEGATIVE SARS-CoV-2 RNA (RT-PCR) Not Detected Negative Troponin I 0.034 H <0.028 NG/ML Urine Color YELLOW Urine Clarity CLEAR Urine pH 6.5 5-9 Urine Specific [place] 1.025 H 1.016-1.022 Urine Protein 2+ H NEGATIVE Urine Glucose (UA) NEGATIVE NEGATIVE Urine Ketones NEGATIVE NEGATIVE Urine Nitrite NEGATIVE NEGATIVE Urine Bilirubin NEGATIVE NEGATIVE Urine Urobilinogen 0.2 < = 1.0 MG/DL Urine Leukocyte Esterase NEGATIVE NEGATIVE Urine RBC (Auto) NEGATIVE NEGATIVE Urine RBC NONE /HPF Urine WBC 5-10 H /HPF Urine Squamous Epithelial Cells 0-2 /HPF Urine Crystals NONE /LPF Urine Bacteria LARGE H /HPF Urine Casts NONE /LPF Urine Mucus NEGATIVE /LPF Urine Culture Indicated YES Test 08/04/21 17:30 Range/Units Troponin I 0.037 H <0.028 NG/ML (ALBIN TESFAYE MD) Medications Given in ED Current Medications Medications Dose Ordered Sig/Deborah Route Start Time Stop Time Status Last Admin Dose Admin Ondansetron HCl 4 mg ONCE ONCE IVP 08/04/21 15:00 08/04/21 15:01 DC 08/04/21 15:01 4 MG (ALBIN TESFAYE MD) Vital Signs/I&O 08/04/21 08/04/21 14:45 15:30 Temp 36.0 Pulse 94 80 81 83 Resp 20 B/P (MAP) 170/98 (122) 185/73 (110) 172/73 (106) 163/75 (104) Pulse Ox 99 O2 Delivery Room Air (ALBIN TESFAYE MD) Comment Sinus rhythm, 75 bpm, QRS duration 146 MS, QTc 465 MS. (DAMIR BLEDSOE) Departure Communication (Admissions) Patient is a 80-year-old female with a history of orthostatic hypotension who presents ED with nausea, vomiting dizziness with ambulation. She states she feels nauseous. Generalized abdominal discomfort but cannot pinpoint certain area of abdominal tenderness. She states she may have had some pain with urination over the past few weeks but this is intermittent. Patient afebrile. Vital signs stable besides she is hypertensive. History of longstanding chronic hypertension currently on 3 different medications. History of abnormal table tilt test. Patient was slightly orthostatic hypotensive here with dizziness. She did vomited once here in the ED. Was given Zofran. EKG normal sinus rhythm. Worsening kidney function with a creatinine 1.57. Slight change from last month of 1.52. Urinalysis concerning for infection. Was given Rocephin. She states Dr. Cruz was wanting to get outpatient GI follow-up. CT abdomen pelvis concerning for gastritis, duodenitis. Denies any bloody dark tarry stool. She was given IV Protonix. Patient with initial elevated troponin 0.034 with a second serial troponin that was slightly elevated 0.037. Discussed patient with Dr. Styles cardiology. No EKG ST elevation or depression. Likely more type II ischemic changes and secondary to dehydration versus kidney function versus longstanding hypertension. Improvement of blood pressure patient was given IV fluid. Dr. Styles will consult with patient. Patient was discussed with hospitalist Dr. Ferguson. Patient will be admitted for further evaluation. Further evaluation with GI as needed. She states she has been attempting to eat but this has no significant change with her pain. (DAMIR BLEDSOE) Impression Primary Impression: Orthostatic hypotension Additional Impressions: JUAN (acute kidney injury) Elevated troponin Disposition: ADMITTED INPATIENT Condition: Stable Departure-Patient Inst. Referrals: YADIEL ARAUJO DO (PCP/Family) Primary Care Physician ATTENDING PHYSICIAN NOTE: I was physically present as attending physician in the emergency department during the care of this patient, but I was not directly involved in the decision making or delivery of care for this patient. (ALBIN TESFAYE MD) DAMIR BLEDSOE Aug 04, 2021 14:55 ALBIN TESFAYE MD Aug 04, 2021 19:08
[2021-08-04] MEDS ORDERED: ONDANSETRON 4 MG/2 ML (SDV) Z0FRAN IVP ONE (15:00)
[2021-08-04 15:01] LABS: BASOPHILS # (AUTO) 0.1 10^3/uL (0.0-0.1); BASOPHILS % (AUTO) 1 % (0-10); EOSINOPHILS # (AUTO) 0.2 10^3/uL (0.0-0.3); EOSINOPHILS % (AUTO) 2 % (0-10); HEMATOCRIT 38 % (35-52); HEMOGLOBIN 12.5 g/dL (11.5-16.0); LYMPHOCYTES # (AUTO) 2.6 X 10^3 (1.0-4.0); LYMPHOCYTES % (AUTO) 34 % (12-44); MEAN CORPUSCULAR HEMOGLOBIN 33 pg (25-34); MEAN CORPUSCULAR HGB CONC 33 g/dL (32-36); MEAN CORPUSCULAR VOLUME 99 fL (80-99); MEAN PLATELET VOLUME 9.9 fL (9.0-12.2); MONOCYTES # (AUTO) 0.5 X 10^3 (0.0-1.0); MONOCYTES % (AUTO) 7 % (0-12); NEUTROPHILS # (AUTO) 4.2 X 10^3 (1.8-7.8); NEUTROPHILS % (AUTO) 56 % (42-75); PLATELET COUNT 253 10^3/uL (130-400); WHITE BLOOD COUNT 7.5 10^3/uL (4.3-11.0)
[2021-08-04 15:13] LABS: ALBUMIN 4.2 GM/DL (3.2-4.5)
[2021-08-04 15:15] LABS: CALCIUM 9.8 MG/DL (8.5-10.1)
[2021-08-04 15:16] LABS: TOTAL PROTEIN 7.6 GM/DL (6.4-8.2)
[2021-08-04 15:18] LABS: BILIRUBIN,TOTAL 0.4 MG/DL (0.1-1.0)
[2021-08-04 15:20] LABS: CREATININE SERUM 1.57 MG/DL (0.60-1.30)
[2021-08-04 15:30] VITALS: BP_SYST 163; BP_SYST 172; BP_SYST 185; BP_DIAS 73; BP_DIAS 75
--- NOTE | 2021-08-04 15:48 | Diagnostic Imaging Report ---
PROCEDURE: CT abdomen and pelvis without contrast. TECHNIQUE: Multiple contiguous axial images were obtained through the abdomen and pelvis without the use of intravenous contrast. Auto Exposure Controls were utilized during the CT exam to meet ALARA standards for radiation dose reduction. INDICATION: Abdominal pain. Nausea. COMPARISON: 04/17/2019. FINDINGS: The heart is unremarkable. The lung bases are clear. There is atrophy of the left kidney relative to the right. No hydronephrosis or obstructing calculi. The urinary bladder is mildly distended. Air is seen within the bladder lumen. The liver, spleen, pancreas and adrenal glands have a normal appearance. The gallbladder is surgically absent. There is no pathologically enlarged mesenteric or retroperitoneal adenopathy. The bowel loops are nondilated. There is bowel wall thickening involving the distal stomach/proximal duodenum. The appendix is surgically absent. Diverticulosis of the descending and sigmoid colon is seen without evidence of acute diverticulitis There is no free fluid or free air. No acute osseous abnormalities. Posterior fusion changes are visualized at L3-L4. There is no free air, loculated collection or adenopathy in the pelvis. IMPRESSION: 1. Wall thickening of the distal stomach/proximal duodenum, which can be seen with inadequate distention versus gastritis/duodenitis. Recommend correlation with patient history and symptoms. 2. Diverticuli in the descending and sigmoid colon without evidence of acute diverticulitis. 3. Air within the bladder lumen. Recommend correlation with recent instrumentation. Cystitis can also have this appearance. 4. Atrophic appearance of the left kidney relative to the right. This appearance has progressed since the prior exam. No evidence of acute hydronephrosis or obstructing calculi. Dictated by: Dictated on workstation # [id number]
[2021-08-04 17:34] LABS: BILIRUBIN,URINE NEGATIVE (NEGATIVE); CLARITY,URINE CLEAR; COLOR,URINE YELLOW; GLUCOSE, URINE (UA) NEGATIVE (NEGATIVE); KETONES,URINE NEGATIVE (NEGATIVE); LEUKOCYTE ESTERASE ,URINE NEGATIVE (NEGATIVE); NITRITE,URINE NEGATIVE (NEGATIVE); PH,URINE 6.5 (5-9); PROTEIN,URINE 2+ (NEGATIVE)
[2021-08-04 18:08] LABS: BACTERIA,URINE LARGE /HPF; SQUAMOUS EPITHELIAL CELL,UR 0-2 /HPF
[2021-08-04] MEDS ORDERED: PANTOPRAZOLE 40 MG (PROTONIX) VIAL IV ONE (19:15)
[2021-08-04] MEDS ORDERED: cefTRIAXone 1 GM PRE-MIX 50 ML IV STA (19:15)
[2021-08-04] MEDS ORDERED: NS IV 1000 ML 1,000 ML ONE (19:56)
[2021-08-04] MEDS: NS IV 1000 ML 1,000 ML IV SCH (19:56)
[2021-08-04] MEDS ORDERED: ONDANSETRON 4 MG/2 ML (SDV) Z0FRAN ONE (20:17)
[2021-08-04] MEDS: ONDANSETRON 4 MG/2 ML (SDV) Z0FRAN IVP PRN (20:38)
[2021-08-04] MEDS ORDERED: PROMETHAZINE INJ 25 MG/ML (PHENERGAN) AMP IVP PRN (21:00)
[2021-08-05] VITALS (7 sets, daily range): BP systolic 144–187; BP diastolic 66–81
[2021-08-05] MEDS ORDERED: LOSA50TA63 PO (01:15)
[2021-08-05] MEDS ORDERED: MELO7.5T46 PO (01:15)
[2021-08-05] MEDS ORDERED: AMT10T PO (01:15)
[2021-08-05] MEDS ORDERED: LORA-53 PO (01:19)
[2021-08-05] MEDS ORDERED: HYDR-3922 PO (01:22)
[2021-08-05 05:39] LABS: BASOPHILS # (AUTO) 0.1 10^3/uL (0.0-0.1); BASOPHILS % (AUTO) 1 % (0-10); EOSINOPHILS # (AUTO) 0.3 10^3/uL (0.0-0.3); EOSINOPHILS % (AUTO) 6 % (0-10); HEMATOCRIT 35 % (35-52); HEMOGLOBIN 11.2 g/dL (11.5-16.0); LYMPHOCYTES # (AUTO) 2.4 10^3/uL (1.0-4.0); LYMPHOCYTES % (AUTO) 42 % (12-44); MEAN CORPUSCULAR HEMOGLOBIN 32 pg (25-34); MEAN CORPUSCULAR HGB CONC 32 g/dL (32-36); MEAN CORPUSCULAR VOLUME 100 fL (80-99); MEAN PLATELET VOLUME 10.3 fL (9.0-12.2); MONOCYTES # (AUTO) 0.6 10^3/uL (0.0-1.0); MONOCYTES % (AUTO) 10 % (0-12); NEUTROPHILS # (AUTO) 2.3 10^3/uL (1.8-7.8); NEUTROPHILS % (AUTO) 41 % (42-75); PLATELET COUNT 188 10^3/uL (130-400); WHITE BLOOD COUNT 5.7 10^3/uL (4.3-11.0)
[2021-08-05] MEDS: NS IV 1000 ML 1,000 ML IV SCH ×2 (05:43→16:04)
[2021-08-05 05:55] LABS: POTASSIUM 4.3 MMOL/L (3.6-5.0)
[2021-08-05 05:56] LABS: CALCIUM 8.6 MG/DL (8.5-10.1)
[2021-08-05 06:01] LABS: CREATININE SERUM 1.29 MG/DL (0.60-1.30)
[2021-08-05] MEDS: amLODIPine 5 MG (NORVASC) TAB PO SCH (08:39)
[2021-08-05] MEDS: LORATADINE (CLARITIN) 10 MG TAB PO SCH (08:39)
[2021-08-05] MEDS: PANTOPRAZOLE 40 MG (PROTONIX) VIAL IV SCH ×2 (08:40→19:46)
--- NOTE | 2021-08-05 15:09 | Consultation-Cardiology ---
HPI-Cardiology Cardiology Consultation: Date of Consultation 08/05/21 Time Seen by a Provider: 14:15 Date of Admission Attending Physician Purvi Ferguson MD Admitting Physician Yadiel Hernandez DO Consulting Physician JAMILA WALKER MD, MA, FACP, FACC, FSCAI, CCDS Primary kelp cutter: Dr Quinn HPI: Chief Complaint: Dizziness, nausea, intermittent vomiting 80 yo woman with persistent nausea for several weeks, much worse the last few days. Denies palp or syncope. Notes dizziness, more marked with posture changes. Has had intermittent vomiting for the last several weeks. She thinks symptoms are related to recent dosage changes in hydralazine. No cp or shortness of breath. Chronic, mild, intermittent leg swelling Review of Systems-Cardiology Review of Systems Constitutional: malaise, tiredness; No weight loss, No weight gain Eyes: No vision change Ears/Nose/Throat: No ear discharge, No nasal drainage Respiratory: As described under HPI Cardiovascular: As described under HPI Gastrointestinal: As described under HPI Genitourinary: No dysuria, No hematuria, No urine frequency changes Musculoskeletal: back pain (chronic); No joint pain Skin: No rash, No ulcerations Psychiatric/Neurological: No seizure, No focal weakness, No syncope Hematologic: No bleeding abnormalities QSD-Kyhhsc-Prrifh Hx Patient Social History Have you traveled recently?: No Alcohol Use?: No Pt feels they are or have been: No Immunizations Up To Date Tetanus Booster (TDap): More than 5yrs Date of Pneumonia Vaccine: Mar 30, 2008 Date of Influenza Vaccine: Mar 30, 2021 Past Medical History PMH As described under Assessment. Family Medical History Family History: Alzheimer's disease Arthritis Asthma Colon cancer Completed stroke Dementia Hypertension Myocardial infarction Visual disorder Allergies and Home Medications Allergies Coded Allergies: Milk Containing Products (Unverified Allergy, Unknown, 04/19/13) FROM UNCODED LIST codeine (Verified Allergy, Unknown, 10/11/20) erythromycin base (Unverified Allergy, Unknown, 08/29/06) metaxalone (Verified Allergy, Unknown, 10/11/20) Patient Home Medication List Home Medication List Reviewed: Yes Acetaminophen (Acetaminophen) 325 Mg Tablet, 650 MG PO Q4H PRN for PAIN-MILD (1- 4) Prescribed by: YADIEL HERNANDEZ on 03/20/21 1247 Last Action: Held Amitriptyline HCl (Amitriptyline HCl) 10 Mg Tablet, 10 MG PO HS, (Reported) Entered as Reported by: DUSTY IPNO on 08/05/21114 Last Action: Continued Amlodipine Besylate (Amlodipine Besylate) 5 Mg Tablet, 5 MG PO DAILY Prescribed by: KIESHA JOYNER on 07/08/21 1436 Last Action: Continued Cholecalciferol (Vitamin D3) (Vitamin D3) 125 Mcg Tablet, 125 MCG PO DAILY Prescribed by: YADIEL HERNANDEZ on 03/20/21 124 Last Action: Held Docusate Sodium (Dok) 100 Mg Capsule, 100 MG PO BID Prescribed by: YADIEL HERNANDEZ on 03/20/21 124 Last Action: Held Famotidine (Famotidine) 20 Mg Tablet, 20 MG PO BID Prescribed by: YADIEL HERNANDEZ on 03/15/21 125 Last Action: Held Hydralazine HCl (Hydralazine HCl) 10 Mg Tablet, 30 MG PO TID Prescribed by: DUSTY PINO on 08/05/21121 Last Action: Continued Loratadine (Loratadine) 10 Mg Tab.rapdis, 10 MG PO DAILY, (Reported) Entered as Reported by: DUSTY PINO on 08/05/21118 Last Action: Continued Magnesium Oxide (Magnesium Oxide) 400 Mg Tablet, 400 MG PO BIDPC Prescribed by: YADIEL HERNANDEZ on 03/20/211247 Last Action: Held Meloxicam (Meloxicam) 7.5 Mg Tablet, 7.5 MG PO UD Prescribed by: DUSTY PINO on 08/05/21114 Last Action: Held Potassium Chloride (Klor-Con M20) 20 Meq Tab.er.prt, 20 MEQ PO DAILY@0700 Prescribed by: YADIEL HERNANDEZ on 03/20/21 124 Last Action: Held Discontinued Medications ALPRAZolam (ALPRAZolam) 0.25 Mg Tablet, 0.125 MG PO BID PRN for ANXIETY Discontinued Reason: No Longer Taking Prescribed by: YADIEL HERNANDEZ on 03/15/21 1256 Last Action: Discontinued Cephalexin (Cephalexin) 500 Mg Tablet, 500 MG PO TID Discontinued Reason: No Longer Taking Prescribed by: ALBIN CASAS on 05/22/21 1116 Last Action: Discontinued Losartan Potassium (Losartan Potassium) 50 Mg Tablet, 50 MG PO BID Discontinued Reason: No Longer Taking Prescribed by: DUSTY PINO on 08/05/21 0115 Last Action: Discontinued Ondansetron HCl (Zofran) 4 Mg Tab, 4 MG PO Q6H PRN for NAUSEA-1ST LINE Discontinued Reason: No Longer Taking Prescribed by: JACOB THOMSON on 03/20/21 1634 Last Action: Discontinued Tramadol HCl (Tramadol HCl) 50 Mg Tablet, 50 MG PO TID PRN for PAIN-MODERATE (5- 7) Discontinued Reason: No Longer Taking Prescribed by: YADIEL HERNANDEZ on 03/15/21 1256 Last Action: Discontinued Venlafaxine HCl (Venlafaxine HCl) 37.5 Mg Tab, 37.5 MG PO BID Discontinued Reason: No Longer Taking Prescribed by: YADIEL HERNANDEZ on 03/15/21 1256 Last Action: Discontinued Physical Exam-Cardiology Physical Exam Vital Signs/I&O 08/05/21 08/05/21 08/05/21 08/05/21 04:00 07:00 08:00 08:22 Temp 36.4 36.4 Pulse 55 62 64 Resp 18 18 B/P (MAP) 144/66 (92) 153/69 (97) Pulse Ox 98 98 O2 Delivery Room Air Room Air Room Air 08/05/21 08/05/21 11:47 12:51 Temp 36.2 Pulse 66 72 Resp 20 B/P (MAP) 157/69 (98) Pulse Ox 96 O2 Delivery Room Air 08/05/21 00:00 Intake Total 1050 ml Output Total 0 ml Balance 1050 ml Capillary Refill : Less Than 3 Seconds Constitutional: AAO x 3, well-developed, well-nourished HEENT: EOMI Neck: carotid pulses are 2 + bilaterally, with good upstrokes Respiratory: No accessory muscle use; other (good, bilateral air entry) Cardiovascular: regular rate-rhythm, S1 and S2, systolic murmur (soft MAXIMO at card base) Gastrointestinal: No tender; soft; No guarding, No rebound; audible bowel sounds Extremities: No clubbing, No cyanosis, No significant edema Neurologic/Psychiatric: oriented x 3, other (moves all limbs equally) Skin: No rash on exposed areas, No ulcerations on exposed areas Data Review Labs Laboratory Tests 08/04/21 15:30: Influenza Type A Antigen NEGATIVE, Influenza Type B Antigen NEGATIVE, SARS-CoV-2 RNA (RT-PCR) Not Detected 08/04/21 15:45: Troponin I 0.034H 08/04/21 17:25: Urine Color YELLOW, Urine Clarity CLEAR, Urine pH 6.5, Urine Specific [place] 1.025H, Urine Protein 2+H, Urine Glucose (UA) NEGATIVE, Urine Ketones NEGATIVE, Urine Nitrite NEGATIVE, Urine Bilirubin NEGATIVE, Urine Urobilinogen 0.2, Urine Leukocyte Esterase NEGATIVE, Urine RBC (Auto) NEGATIVE, Urine RBC NONE, Urine WBC 5-10H, Urine Squamous Epithelial Cells 0-2, Urine Crystals NONE, Urine Bacteria LARGEH, Urine Casts NONE, Urine Mucus NEGATIVE, Urine Culture Indicated YES 08/04/21 17:30: Troponin I 0.037H 08/05/21 05:27: White Blood Count 5.7, Red Blood Count 3.47L, Hemoglobin 11.2L, Hematocrit 35, Mean Corpuscular Volume 100H, Mean Corpuscular Hemoglobin 32, Mean Corpuscular Hemoglobin Concent 32, Red Cell Distribution Width 12.5, Platelet Count 188, Mean Platelet Volume 10.3, Immature Granulocyte % (Auto) 0, Neutrophils (%) (Auto) 41L, Lymphocytes (%) (Auto) 42, Monocytes (%) (Auto) 10, Eosinophils (%) (Auto) 6, Basophils (%) (Auto) 1, Neutrophils # (Auto) 2.3, Lymphocytes # (Auto) 2.4, Monocytes # (Auto) 0.6, Eosinophils # (Auto) 0.3, Basophils # (Auto) 0.1, Immature Granulocyte # (Auto) 0.0, Sodium Level 141, Potassium Level 4.3, Chloride Level 112H, Carbon Dioxide Level 22, Anion Gap 7, Blood Urea Nitrogen 23H, Creatinine 1.29, Estimat Glomerular Filtration Rate 41, BUN/Creatinine Ratio 18, Glucose Level 85, Calcium Level 8.6 Microbiology 08/04/21 Urine Culture - Preliminary, Resulted Gram Negative Jose R Laboratory Tests 08/04/21 14:50 08/05/21 05:27 A/P-Cardiology Assessment/Admission Diagnosis Postural dizziness - h/o postural hypotension and vasodepressor syncope on tilt table study of Feb 2021 (Dr Quinn) Labile hypertension Nausea - pt feels it is related to hydralazine Sinus node dysfunction - intolerant to beta-mehran (bradycardia) History of mild carotid stenosis - last carotid u/s 2018 (monitored by Dr Quinn) Chronic back pain, managed by primary care physician Anxiety Surgical history: tonsillectomy, hysterectomy, laminectomy and lumbar fusion surg Discussion and Recomendations * Pt feels nausea is related to hydralazine. Will stop and replace with doxazosin * Monitor labs * Further recs to be based on her hosp course JAMILA WALKER MD FACP FACC CCDS Aug 05, 2021 15:09
[2021-08-05] MEDS: ONDANSETRON 4 MG/2 ML (SDV) Z0FRAN IVP PRN (16:04)
--- NOTE | 2021-08-05 17:25 | History & Physical-Hospitalist ---
History of Present Illness HPI/Chief Complaint Michelle Car is an 80 year old female with PMH HTN, GERD, anxiety, chronic pain, orthostasis, who presented with nausea and vomiting. She was also feeling lightheaded and dizzy. She has not had any fevers or chills. She denies chest pain and palpitations. She denies shortness of breath and cough. She denies diarrhea. She denies abdominal pain. She has had some dysuria. She has also had urinary urgency which is chronic and unchanged. Source: patient Exam Limitations: no limitations Date Seen 08/05/21 Time Seen by a Provider: 11:55 Attending Physician Brett Rain MD PCP Ambika Hernandez DO Referring Physician Date of Admission Aug 04, 2021 at 19:13 Home Medications & Allergies Home Medications Reviewed patient Home Medication Reconciliation performed by pharmacy medication reconciliations chiller technician and/or nursing. Patients Allergies have been reviewed. Allergies Allergies Coded Allergies Milk Containing Products (Unverified Allergy, Unknown, 04/19/13) FROM UNCODED LIST codeine (Verified Allergy, Unknown, 10/11/20) erythromycin base (Unverified Allergy, Unknown, 08/29/06) metaxalone (Verified Allergy, Unknown, 10/11/20) Past Bdecosv-Zqcsvd-Vtydpp Hx Patient Social History Tobacco Use?: No Use of E-Cig and/or Vaping dev: No Substance use?: No Alcohol Use?: No Pt feels they are or have been: No Immunizations Up To Date Date of Influenza Vaccine: Mar 30, 2021 First/Initial COVID19 Vaccinat: 2020 Second COVID19 Vaccination Bladimir: 2020 Hepatitis A: Yes Hepatitis B: Yes PED Vaccines UTD: Yes Date of Pneumonia Vaccine: Mar 30, 2008 Seasonal Allergies Seasonal Allergies: No Current Status Advance Directives: No Communicates: Verbally Primary Language: Stateless Preferred Spoken Language: Stateless Is interpretation needed?: No Sensory deficits: Vision impairment Implanted or Applied Medical D: None Past Medical History Surgeries: Cystectomy, 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, Orthopedic, Tonsillectomy High Cholesterol, Hypertension Stroke 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: 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, Menopausal Sexually Transmitted Disease: No HIV/AIDS: No Chronic Constipation Degenerate Disk Disease, Chronic Back Pain Hypothyroidsim Loss of Vision: Bilateral Hearing Impairment: Denies Anxiety Blood Disorders: No Adverse Reaction/Blood Tranf: No Family Medical History Alzheimer's disease Arthritis Asthma Colon cancer Completed stroke Dementia Hypertension Myocardial infarction Visual disorder Cancer, Lung Disease, Other Conditions/Hx Review of Systems Constitutional: dizziness EENTM: no symptoms reported Respiratory: no symptoms reported Cardiovascular: no symptoms reported Gastrointestinal: nausea, vomiting Genitourinary: dysuria Musculoskeletal: no symptoms reported Skin: no symptoms reported Psychiatric/Neurological: No Symptoms Reported Physical Exam Physical Exam Vital Signs Vital Signs - First Documented 08/04/21 14:45 Temp 36.0 Pulse 94 Resp 20 B/P (MAP) 170/98 (122) Pulse Ox 99 O2 Delivery Room Air Capillary Refill : Less Than 3 Seconds Height, Weight, BMI Height: 5'5.00" Weight: 140lbs. 0.0oz. 63.718324py; 21.76 BMI Method:Stated General Appearance: No Apparent Distress, WD/WN HEENT: PERRL/EOMI, Pharynx Normal Neck: Normal Inspection, Supple Respiratory: Lungs Clear, No Respiratory Distress Cardiovascular: Regular Rate, Rhythm, No Murmur Gastrointestinal: Normal Bowel Sounds, Non Tender, Soft Extremity: Normal Inspection, No Pedal Edema Neurologic/Psychiatric: Alert, No Motor/Sensory Deficits, Normal Mood/Affect Skin: Normal Color, Warm/Dry Results Results/Procedures Labs Laboratory Tests 08/04/21 14:50 08/05/21 05:27 Patient resulted labs reviewed. Imaging: Reviewed Imaging Report Assessment/Plan Admission Diagnosis Orthostatic hypotension Admission Status: Observation Assessment and Plan Orthostatic hypotension HTN Nausea and vomiting Acute kidney injury CT Abdomen with possible gastritis/duodenitis Protonix Antiemetics IV fluids Stopping hydralazine Starting doxazosin Continue amlodipine Elevated troponin Cardiology consulted Possible UTI UA with possible UTI Urine culture pending Rocephin DVT prophylaxis: Lovenox Diagnosis/Problems Diagnosis/Problems (1) JUAN (acute kidney injury) Status: Acute (2) Orthostatic hypotension Status: Acute (3) UTI (urinary tract infection) Status: Acute (4) Nausea and vomiting Status: Acute BRETT RAIN MD Aug 05, 2021 17:25
[2021-08-05] MEDS ORDERED: ENOXAPARIN 40 MG/0.4 ML (LOVENOX) SYR SC SCH (17:45)
[2021-08-05] MEDS: AMITRIPTYLINE 10 MG (ELAVIL) TAB PO SCH (19:46)
[2021-08-05] MEDS: doxAzosin 4 MG (CARDURA) TAB PO SCH (19:46)
[2021-08-05] MEDS: cefTRIAXone 1 GM PRE-MIX 50 ML IV SCH (20:33)
[2021-08-05] MEDS: ENOXAPARIN 40 MG/0.4 ML (LOVENOX) SYR SC SCH (20:33)
[2021-08-06] VITALS (8 sets, daily range): BP systolic 126–185; BP diastolic 62–81
[2021-08-06] MEDS: NS IV 1000 ML 1,000 ML IV SCH ×2 (02:44→14:12)
[2021-08-06] MEDS: amLODIPine 5 MG (NORVASC) TAB PO SCH (08:56)
[2021-08-06] MEDS: ONDANSETRON 4 MG/2 ML (SDV) Z0FRAN IVP PRN (08:56)
[2021-08-06] MEDS: doxAzosin 4 MG (CARDURA) TAB PO SCH (08:56)
[2021-08-06] MEDS: cefTRIAXone 1 GM PRE-MIX 50 ML IV SCH (08:56)
[2021-08-06] MEDS: PANTOPRAZOLE 40 MG (PROTONIX) VIAL IV SCH (08:56)
[2021-08-06] MEDS: LORATADINE (CLARITIN) 10 MG TAB PO SCH (08:56)
[2021-08-06] MEDS ORDERED: amLODIPine 5 MG (NORVASC) TAB PO ONE (09:30)
--- NOTE | 2021-08-06 09:52 | Cardiology Progress Note ---
Subjective Date Seen by Provider: Aug 06, 2021 Time Seen by Provider: 09:47 Subjective/Events-last exam Patient is in bed, reports some nausea, but slight improvement. Denies any chest pain or dyspnea. Objective-Cardiology Exam Last Set of Vital Signs Vital Signs 08/06/21 13:30 Temp 35.8 Pulse 70 Resp 18 B/P (MAP) 155/75 Pulse Ox 94 O2 Delivery Room Air I&O Intake and Output 08/06/21 00:00 Intake Total 2855 ml Output Total 1200 ml Balance 1655 ml Intake Oral 855 ml IV Total 2000 ml Output Urine Total 1200 ml # Voids 1 General: Alert, Oriented X3, Cooperative HEENT: Atraumatic, PERRLA Neck: Supple, No JVD, No Thyromegaly Lungs: Clear to Auscultation, Normal Air Movement Heart: Regular Rate, Normal S1, Normal S2, No Murmurs Abdomen: Normal Bowel Sounds, Soft, No Tenderness, No Hepatosplenomegaly, No Masses Extremities: No Clubbing, No Cyanosis, No Edema, Normal Pulses, No Tenderness /Swelling Skin: No Rashes, No Breakdown, No Significant Lesion Neuro: Normal Gait, Normal Speech, Strength at 5/5 X4 Ext, Normal Tone, Sensation Intact Psych/Mental Status: Mental Status NL, Mood NL A/P-Cardiology Admission Diagnosis Nausea/Vomiting UTI Orthostatic hypotension Assessment/Plan Nausea/vomiting, has history of nausea, management per medical services UTI, started on Ceftriaxone, management per medical services Acute kidney injury, kidney function improved, continue to monitor Mildly elevated troponin, EKG showing SR with no acute ST changes. Patient denies any chest pain, stress test done in 2017 showing no ischemia or infarct. Will continue to monitor. May consider stress test as outpatient. Orthostatic hypotension, multiple falls, underwent tilt table test on 03/14/2021 and was significantly positive for vasodepressive syncope. Labile hypertension, had an episode of extreme high blood pressure with blood pressure over 200 systolic then having a significant drop in her blood pressure during tilt table test starting at blood pressure over 200 then down to the blood pressure in the 70s. Hydralazine discontinued on this admission. Started on Cardura in addition to her amlodipine, I will increase amlodipine to 10mg daily, continue to monitor. Echocardiogram was done in February 2021 showing normal left ventricular size, ejection fraction 65 to 70%, grade 1 diastolic dysfunction, mild MR, PA pressure 30 mmHg Tilt table test done on 03/14/2021 was positive for vasodepressive syncope, had a baseline severe hypertension with blood pressure 188/90 and during syncopal episode her blood pressure was 69/40. Heart rate continued to be between 80-100 Sinus node dysfunction with sinus bradycardia, asymptomatic at this time. During tilt table test had appropriate increase in her heart rate, no dropping her heart rate. History of mild carotid stenosis, last ultrasound was done in February 2021. Chronic back pain, using a wheelchair History of anxiety, maintained on Xanax as needed, managed by Dr. Hernandez History of tonsillectomy, hysterectomy, laminectomy, lumbar fusion. Patient was seen and evaluated with Krys, examination performed, management plan was discussed, agree with the current scribed note, I made few changes to the note using Italic font Patient was seen at bedside, laying down comfortably, still having some nausea I discussed with Dr. Hernandez regarding the management plan, we will evaluate her response to Cardura otherwise we will consider clonidine patch and evaluate tolerance and response. Monitor blood pressure I doubt that the hydralazine is the cause of her nausea. Supervisory-Addendum Brief Supervisory Addendum Participated in pt care: history, MDM, physical Personally performed: exam, history, MDM Care discussed with: OPHELIA Results interpretation: Verified all documentation KRYS VALDES Aug 06, 2021 09:52 DIANE DELA CRUZ MD Aug 06, 2021 14:51
[2021-08-06] MEDS ORDERED: DOCU100C37 PO (10:05)
[2021-08-06] MEDS ORDERED: LORA10TA7 PO (10:05)
[2021-08-06] MEDS ORDERED: CHOL200059 PO (10:05)
[2021-08-06] MEDS ORDERED: ACET-2650 PO (10:05)
[2021-08-06] MEDS ORDERED: HYDR-3922 PO (10:05)
[2021-08-06] MEDS ORDERED: MELO7.5T46 PO (10:05)
[2021-08-06] MEDS ORDERED: FAMO20TA3 PO (10:05)
[2021-08-06] MEDS ORDERED: AMLO-250 PO (10:05)
[2021-08-06] MEDS ORDERED: POTA-51 PO (10:05)
[2021-08-06] MEDS ORDERED: MAGN400T39 PO (10:05)
[2021-08-06] MEDS ORDERED: LOSA50TA63 PO (10:06)
--- NOTE | 2021-08-06 14:08 | Progress Note ---
Subjective Date Seen by a Provider: Aug 06, 2021 Time Seen by a Provider: 08:40 Subjective/Events-last exam Fwup labile HTN, orthostatic hypotension, UTI, intractable Nausea and vomiting, GERD, anxiety. Patient thought the hydralazine was cause of her nausea but this has been DCed on admit and she is still complaining of nausea. Objective Exam Vital Signs Date Time Temp Pulse Resp B/P (MAP) Pulse Ox O2 Delivery O2 Flow Rate FiO2 08/06/21 12:09 70 08/06/21 12:00 35.8 56 18 155/75 (101) 94 Room Air 08/06/21 08:00 36.2 67 18 170/71 (104) 96 Room Air 08/06/21 08:00 Room Air 08/06/21 07:00 68 08/06/21 03:56 36.4 67 18 171/73 (105) 96 Room Air 08/06/21 01:00 60 08/06/21 00:35 37.0 97 18 185/81 (115) 96 Room Air 08/05/21 20:39 Room Air 08/05/21 20:05 36.8 69 18 178/76 (110) 96 Room Air 08/05/21 18:55 71 08/05/21 15:44 36.8 74 20 181/81 (114) 95 Room Air I & O 08/06/21 07:00 Intake Total 2855 ml Output Total 1100 ml Balance 1755 ml Capillary Refill : Less Than 3 Seconds General Appearance: No Apparent Distress Respiratory: Lungs Clear Cardiovascular: Regular Rate, Rhythm Gastrointestinal: normal bowel sounds, non tender, soft Extremity: Non Tender, No Calf Tenderness, No Pedal Edema Neurologic/Psychiatric: Alert, Oriented x3 Results Lab Microbiology 08/04/21 Urine Culture - Preliminary, Resulted Gram Negative Jose R Assessment/Plan Assessment/Plan Assess & Plan/Chief Complaint 1. Labile Hypertension--Add clonidine due to recent elevated serum catecholamines, may need CT of abdomen/pelvis with contrast 2. Orthostatic Hypotension--start thigh high MATT hose and DC doxazosin 3. Intractable N/V with GERD--on protonix 4. Anxiety--start paxil 5. UTI--on YADIEL Nevarez DO Aug 06, 2021 14:08
[2021-08-06] MEDS ORDERED: ACETAMINOPHEN 325 MG TABLET PO PRN (17:45)
[2021-08-06] MEDS ORDERED: cefTRIAXone 1 GM PRE-MIX 50 ML IV SCH (19:00)
[2021-08-06] MEDS: ENOXAPARIN 40 MG/0.4 ML (LOVENOX) SYR SC SCH (20:22)
[2021-08-06] MEDS: PANTOPRAZOLE 40 MG (PROTONIX) TAB PO SCH (20:22)
[2021-08-06] MEDS: AMITRIPTYLINE 10 MG (ELAVIL) TAB PO SCH (20:22)
[2021-08-06] MEDS: PARoxetine 10 MG (PAXIL) TAB PO SCH (20:22)
[2021-08-06] MEDS: cloNIDine 0.1 MG (CATAPRES) TAB PO SCH (20:22)
[2021-08-07] MEDS: NS IV 1000 ML 1,000 ML IV SCH ×4 (00:09→21:08)
[2021-08-07 03:31] VITALS: BP 126/57
[2021-08-07 07:30] LABS: HEMATOCRIT 30 % (35-52); HEMOGLOBIN 9.6 g/dL (11.5-16.0); MEAN CORPUSCULAR HEMOGLOBIN 33 pg (25-34); MEAN CORPUSCULAR HGB CONC 32 g/dL (32-36); MEAN CORPUSCULAR VOLUME 101 fL (80-99); MEAN PLATELET VOLUME 10.8 fL (9.0-12.2); PLATELET COUNT 180 10^3/uL (130-400); WHITE BLOOD COUNT 5.3 10^3/uL (4.3-11.0)
[2021-08-07 07:38] LABS: CALCIUM 8.1 MG/DL (8.5-10.1); CREATININE SERUM 1.3 MG/DL (0.60-1.30); POTASSIUM 3.9 MMOL/L (3.6-5.0)
[2021-08-07 07:48] VITALS: BP 150/70
--- NOTE | 2021-08-07 08:36 | Cardiology Progress Note ---
Subjective Date Seen by Provider: Aug 07, 2021 Time Seen by Provider: 08:33 Subjective/Events-last exam Patient was seen at bedside, laying down comfortably, reporting some improvement in her nausea. Review of Systems General: No Chills, No Night Sweats; Fatigue; No Malaise, No Appetite, No Other HEENT: No Head Aches, No Visual Changes, No Eye Pain, No Ear Pain, No D ysphasia, No Sinus Congestion, No Post Nasal Drip, No Sore Throat, No Other Pulmonary: No Dyspnea, No Cough, No Pleuritic Chest Pain, No Other Cardiovascular: No: Chest Pain, Palpitations, Orthopnea, Paroxysmal Noc. Dyspnea, Edema, Lt Headedness, Other Objective-Cardiology Exam Last Set of Vital Signs Vital Signs 08/07/21 07:48 Temp 36.0 Pulse 60 Resp 16 B/P (MAP) 150/70 (96) Pulse Ox 97 O2 Delivery Room Air I&O Intake and Output 08/07/21 00:00 Intake Total 1850 ml Output Total 2500 ml Balance -650 ml Intake Oral 850 ml IV Total 1000 ml Output Urine Total 2500 ml # Voids 2 General: Alert, Oriented X3, Cooperative HEENT: Atraumatic, PERRLA Neck: Supple, No JVD, No Thyromegaly Lungs: Clear to Auscultation, Normal Air Movement Heart: Regular Rate, Normal S1, Normal S2, No Murmurs Abdomen: Normal Bowel Sounds, Soft, No Tenderness, No Hepatosplenomegaly, No Ma sses Extremities: No Clubbing, No Cyanosis, No Edema, Normal Pulses, No Tender ness/Swelling Skin: No Rashes, No Breakdown, No Significant Lesion Neuro: Normal Gait, Normal Speech, Strength at 5/5 X4 Ext, Normal Tone, Sensation Intact Psych/Mental Status: Mental Status NL, Mood NL Results Lab Laboratory Tests 08/07/21 07:14 A/P-Cardiology Admission Diagnosis Nausea/Vomiting UTI Orthostatic hypotension Assessment/Plan Nausea/vomiting, has history of nausea, gastritis and esophagitis noted on CT scan. Managed by primary care physician UTI, started on Ceftriaxone, management per medical services Acute kidney injury, kidney function improved, CT of the abdomen suggestive of atrophic kidney, I will evaluate renal arterial Doppler Mildly elevated troponin, EKG showing SR with no acute ST changes. Patient denies any chest pain, stress test done in 2018 showing no ischemia or infarct. Will continue to monitor. May consider stress test as outpatient. Orthostatic hypotension, multiple falls, underwent tilt table test on 03/14/2021 and was significantly positive for vasodepressive syncope. Labile hypertension, had an episode of extreme high blood pressure with blood pressure over 200 systolic then having a significant drop in her blood pressure during tilt table test starting at blood pressure over 200 then down to the blood pressure in the 70s. Hydralazine discontinued on this admission. Currently on amlodipine 10 mg daily and clonidine 0.1 mg 3 times daily and her blood pressure is better. Continue to monitor Echocardiogram was done in February 2021 showing normal left ventricular size, ejection fraction 65 to 70%, grade 1 diastolic dysfunction, mild MR, PA pressure 30 mmHg Tilt table test done on 03/14/2021 was positive for vasodepressive syncope, had a baseline severe hypertension with blood pressure 188/90 and during syncopal episode her blood pressure was 69/40. Heart rate continued to be between 80-100 Sinus node dysfunction with sinus bradycardia, asymptomatic at this time. During tilt table test had appropriate increase in her heart rate, no dropping her heart rate. History of mild carotid stenosis, last ultrasound was done in February 2021. Chronic back pain, using a wheelchair History of anxiety, maintained on Xanax as needed, managed by Dr. Hernandez History of tonsillectomy, hysterectomy, laminectomy, lumbar fusion. DIANE DELA CRUZ MD Aug 07, 2021 08:36
[2021-08-07] MEDS: cefTRIAXone 1 GM PRE-MIX 50 ML IV SCH (09:43)
[2021-08-07] MEDS: LORATADINE (CLARITIN) 10 MG TAB PO SCH (09:44)
[2021-08-07] MEDS: cloNIDine 0.1 MG (CATAPRES) TAB PO SCH ×3 (09:44→20:15)
[2021-08-07] MEDS: amLODIPine 10 MG (NORVASC) TAB PO SCH (09:44)
[2021-08-07] MEDS: PANTOPRAZOLE 40 MG (PROTONIX) TAB PO SCH ×2 (09:44→20:15)
--- NOTE | 2021-08-07 09:59 | Diagnostic Imaging Report ---
INDICATION: Renal hypertension. FINDINGS: Right kidney measures 9.6 x 3.9 x 4.8 cm. Left kidney measures 9.8 x 4.1 x 4.8 cm. Doppler sampling shows arcuate resistive indices on the right of 15 and on the left of 15 cm/s. The peak velocity within the right renal artery is 100 cm/s which is a renal artery to aortic ratio 0.33. Left renal artery shows peak velocity of 68 cm/s with renal artery ratio of 0.23. IMPRESSION: Normal-appearing kidneys. No Doppler findings are seen that would suggest hemodynamic stenosis of the renal arteries. Dictated by: Dictated on workstation # [id number]
[2021-08-07 12:00] VITALS: BP 130/67
--- NOTE | 2021-08-07 12:48 | Progress Note ---
Subjective Date Seen by a Provider: Aug 07, 2021 Time Seen by a Provider: 18:35 Subjective/Events-last exam Fwup labile HTN, orthostatic hypotension, UTI, intractable Nausea and vomiting, GERD, anxiety. Nausea better yesterday. In process of renal arteriogram. Objective Exam Vital Signs Date Time Temp Pulse Resp B/P (MAP) Pulse Ox O2 Delivery O2 Flow Rate FiO2 08/07/21 12:23 53 08/07/21 12:00 36.0 55 18 130/67 (88) 97 Room Air 08/07/21 08:00 97 Room Air 08/07/21 07:48 36.0 60 16 150/70 (96) 97 Room Air 08/07/21 07:00 60 08/07/21 03:31 36.6 57 18 126/57 (80) 95 Room Air 08/07/21 01:00 60 08/06/21 23:00 36.4 68 18 126/68 (87) 95 Room Air 08/06/21 20:00 Room Air 08/06/21 20:00 36.5 72 16 156/67 (96) 96 Room Air 08/06/21 19:00 72 08/06/21 16:00 35.5 76 16 135/62 (86) 96 Room Air 08/06/21 13:30 35.8 70 18 155/75 94 Room Air I & O 08/07/21 07:00 Intake Total 1050 ml Output Total 2600 ml Balance -1550 ml Capillary Refill : Less Than 3 Seconds General Appearance: No Apparent Distress Neck: Supple Respiratory: Lungs Clear Cardiovascular: Regular Rate, Rhythm, Systolic Murmur, Gallop/S4 Gastrointestinal: normal bowel sounds, non tender, soft Extremity: Non Tender, No Calf Tenderness, No Pedal Edema Neurologic/Psychiatric: Alert, Oriented x3 Results Lab Laboratory Tests 08/07/21 07:14: White Blood Count 5.3, Red Blood Count 2.95L, Hemoglobin 9.6L, Hematocrit 30L, Mean Corpuscular Volume 101H, Mean Corpuscular Hemoglobin 33, Mean Corpuscular Hemoglobin Concent 32, Red Cell Distribution Width 12.5, Platelet Count 180, M rehan Platelet Volume 10.8, Sodium Level 143, Potassium Level 3.9, Chloride Level 114H, Carbon Dioxide Level 20L, Anion Gap 9, Blood Urea Nitrogen 19H, Creatinine 1.30, Estimat Glomerular Filtration Rate 41, BUN/Creatinine Ratio 15, Glucose Level 98, Calcium Level 8.1L Microbiology 08/04/21 Urine Culture - Final, Complete Escherichia coli Assessment/Plan Assessment/Plan Assess & Plan/Chief Complaint 1. Labile Hypertension--Clonidine helping, recent elevated serum catecholamines, may need CT of abdomen/pelvis with contrast, renal arteriogram done today 2. Orthostatic Hypotension--on thigh high MATT hose 3. Intractable N/V with GERD--on protonix 4. Anxiety--started paxil 5. UTI--on rocephin 6. Dementia--start aricept YADIEL ARAUJO DO Aug 07, 2021 12:48
[2021-08-07] MEDS ORDERED: CATHETER FLUSH 10 ML SYR IV PRN (14:15)
[2021-08-07] MEDS ORDERED: HOLD METFORMIN - RECEIVED CONTRAST 20 ML VIAL IV SCH (14:15)
[2021-08-07] MEDS ORDERED: NS 100 ML (IVPB) BAG IV ONE (14:15)
[2021-08-07] MEDS ORDERED: IOHEXOL 350 MG/ML 100 ML (OMNIPAQUE 350) VIAL IV ONE (14:15)
--- NOTE | 2021-08-07 14:34 | Physical Therapy Evaluation ---
PT Evaluation-General Medical Diagnosis Admission Date Aug 04, 2021 at 19:13 Medical Diagnosis: Orthostatic Hypotension Onset Date: Aug 04, 2021 Therapy Diagnosis Therapy Diagnosis: weakness, debility Height/Weight Height (Feet): 5 Height (Inches): 5.00 Weight (Pounds): 140 Weight (Ounces): 0.0 Precautions Precautions/Isolations: Fall Prevention, Standard Precautions Referral Physician: Mary Reason for Referral: Evaluation/Treatment Medical History Pertinent Medical History: HTN, Hypothroidism, Renal Insufficiency Current History ER due to vomiting Social History Home: Single Level Current Living Status: Alone Entry Into Home: Stairs With Railing PT Steps Into Home: 2 Prior Prior Level of Function SCALE: Activities may be completed with or without assistive devices. 1-Hgocvlhppo-rxemkfy completes the activity by him/herself with no assistance from a helper. 5-Set-up or Clean-up Assistance-helper sets up or cleans up; patient completes activity. [place] assists only prior to or following the activity. 4-Supervision or Touching Assistance-helper provides verbal cues and/or touching/steadying and/or contact guard assistance as patient completes activity. Assistance may be provided throughout the activity or intermittently. 3-Partial/Moderate Assistance-helper does LESS THAN HALF the effort. Veyo lifts, holds or supports trunk or limbs, but provides less than half the effort. 2-Substantial/Maximal Assistance-helper does MORE THAN HALF the effort. [place]eyo lifts or holds trunk or limbs and provides more than half the effort. 0-Obcmrcjgx-vcfupe does ALL the effort. Patient does none of the effort to complete the activity. Or, the assistance of 2 or more helpers is required for the patient to complete the activity. If activity was not attempted, code reason: 7-Patient Refused. 9-Not Applicable-not attempted and the patient did not perform the activity before the current illness, exacerbation or injury. 10-Not Attempted due to Environmental Limitations-(lack of equipment, weather restraints, etc.). 88-Not Attempted due to Medical Conditions or Safety Concerns. Bed Mobility: 6 Transfers (B,C,W/C): 6 Gait: 6 Stairs: 6 Indoor Mobility (Ambulation): Independent Stairs: Independent Prior Devices Use: Walker PT Evaluation-Current Subjective Patient presented laying in bed and agreed to participate in physical therapy. Objective Patient Orientation: Person, Place, Situation Attachments: IV ROM/Strength ROM Lower Extremities WFL Strength Lower Extremities 4/5 strength bilaterally grossly Integumentary/Posture Bowel Incontinence: No Bladder Incontinence: No Neuromuscular (Tone, Coordination, Reflexes) grossly intact Sensory Vision: Wears Glasses Hearing: Functional Transfers Lying to Sitting/Side of Bed(Q: 4 Sit to Stand (QC): 4 Chair/Xdf-ew-Bgirh Xfer(QC): 4 Toilet Transfer (QC): 4 Patient required CGA for all transfers. Gait Does the Patient Walk?: Yes Mode of Locomotion: Walk Anticipated Mode of Locomotion: Walk Walk 10 feet (QC): 4 Walk 50 ft with 2 Turns(QC): 4 Walk 150 ft (QC): 4 Distance: 200' Gait Assistive Device: FWW Comments/Gait Description Patient ambulated with FWW and CGA. Patient ambulated with reciprocal gait pattern. Patient reports that she used a FWW before she came to the hospital. Balance Sitting Static: Normal Sitting Dynamic: Normal Standing Static: Normal Standing Dynamic: Fair Assessment/Needs Patient ambulated and performed bed mobility during therapy session. Patient required CGA for all transfers and ambulation. Patient requires skill therapy to increase strength and function to return home to [facility]. Rehab Potential: Good PT Long-Term Goals Long-Term Goals PT Long-Term Goals Time Frame: Aug 18, 2021 Roll Left & Right (QC): 6 Sit to Lying (QC): 6 Lying-Sitting on Side/Bed(QC): 6 Sit to Stand (QC): 6 Chair/Ojc-qv-Liext Xfer(QC): 6 Toilet Transfer (QC): 6 Does the Patient Walk: Yes Walk 10 feet (QC): 6 Walk 50ft with 2 Turns (QC): 6 Walk 150 ft (QC): 6 PT Plan Problem List Problem List: Activity Tolerance, Functional Strength, Safety, Balance, Gait, Transfer, Bed Mobility, ROM Treatment/Plan Treatment Plan: Continue Plan of Care Treatment Plan: Bed Mobility, Education, Functional Activity Usman, Functional Strength, Gait, Safety, Therapeutic Exercise, Transfers Treatment Duration: Aug 18, 2021 Frequency: 6 times per week Estimated Hrs Per Day: .25 hour per day Time/GCodes Time In: 1340 Time Out: 1355 Total Billed Treatment Time: 15 Total Billed Treatment 1 Visit EVMod 15 min ANAID BOSE PT Aug 07, 2021 14:34
--- NOTE | 2021-08-07 14:45 | Diagnostic Imaging Report ---
EXAMINATION: CT abdomen with and without intravenous contrast. TECHNIQUE: Precontrast acquisitions were acquired through the abdomen . Multiple contiguous axial images were obtained through the abdomen after the administration of intravenous contrast. All CT scans use one or more of the following dose optimizing techniques: Automated exposure control, MA and/or KvP adjustment based on patient size and exam type or iterative reconstruction. HISTORY: Elevated catecholamines. COMPARISON: CT abdomen 08/04/2021. FINDINGS: Lung bases: Bibasilar dependent atelectasis. Solid organs: The liver is normal without focal lesion. The gallbladder is surgically absent. There is mild dilatation of the common bile duct, which may be secondary to reservoir effect from prior cholecystectomy. Pancreas is normal. Spleen is normal. The adrenal glands are unremarkable without focal nodule. There is left renal cortical atrophy. No hydronephrosis. No visualized renal calculus. Bowel: No bowel obstruction. Peritoneum: There is no intraperitoneal free fluid or free air. No suspicious lymphadenopathy. Vasculature: Calcification of the aorta without aneurysm. Musculoskeletal: Degenerative changes of the spine without suspicious osseous lesion or compression fracture. Surgical changes of the spine. Right flank spinal stimulator device is present. IMPRESSION: 1. No suspicious adrenal lesion. No other acute abnormality in the visualized abdomen. Dictated by: Dictated on workstation # [id number]
[2021-08-07 15:50] VITALS: BP 138/64
[2021-08-07 19:15] VITALS: BP 164/70
[2021-08-07] MEDS: PARoxetine 10 MG (PAXIL) TAB PO SCH (20:15)
[2021-08-07] MEDS: AMITRIPTYLINE 10 MG (ELAVIL) TAB PO SCH (20:15)
[2021-08-07] MEDS: ENOXAPARIN 40 MG/0.4 ML (LOVENOX) SYR SC SCH (20:15)
[2021-08-07] MEDS: DONEPEZIL 5 MG (ARICEPT) TAB PO SCH (20:16)
[2021-08-08 00:28] VITALS: BP 110/58
[2021-08-08 03:58] VITALS: BP 110/58
[2021-08-08 06:40] LABS: HEMATOCRIT 27 % (35-52); MEAN CORPUSCULAR HEMOGLOBIN 33 pg (25-34); MEAN CORPUSCULAR HGB CONC 33 g/dL (32-36); MEAN CORPUSCULAR VOLUME 99 fL (80-99); MEAN PLATELET VOLUME 11.5 fL (9.0-12.2); PLATELET COUNT 181 10^3/uL (130-400); WHITE BLOOD COUNT 4.9 10^3/uL (4.3-11.0)
[2021-08-08 06:53] LABS: POTASSIUM 3.8 MMOL/L (3.6-5.0)
[2021-08-08 06:54] LABS: CALCIUM 7.8 MG/DL (8.5-10.1)
[2021-08-08 06:59] LABS: CREATININE SERUM 1.19 MG/DL (0.60-1.30)
[2021-08-08 07:15] VITALS: BP 139/65
--- NOTE | 2021-08-08 07:52 | Progress Note ---
Subjective Subjective Date Seen by Provider: Aug 08, 2021 Time Seen by Provider: 07:01 Pt reports that she is doing well this morning. Denies any dizziness or light headedness with standing if she takes her time. Denies any nausea or vomiting. States that she has been able to get up and move around without issue. Review of Systems General: No Chills; Other (feer ) HEENT: No Head Aches, No Visual Changes Pulmonary: No Dyspnea, No Cough Cardiovascular: No: Chest Pain, Palpitations, Orthopnea, Lt Headedness Musculoskeletal: No: arm pain, back pain, leg pain Neurological: Numbness (in feet (chronic)); No: Weakness Objective Exam Vital Signs Vital Signs Date Time Temp Pulse Resp B/P (MAP) Pulse Ox O2 Delivery O2 Flow Rate FiO2 08/08/21 07:00 50 08/08/21 03:58 36.5 54 18 110/58 (75) 97 Room Air 08/08/21 01:00 50 08/08/21 00:28 36.4 50 16 110/58 (75) 96 Room Air 08/07/21 20:15 Room Air 08/07/21 19:15 35.2 58 18 164/70 (101) 95 Room Air 08/07/21 19:00 63 08/07/21 15:50 35.0 65 18 138/64 (88) 95 Room Air 08/07/21 12:23 53 08/07/21 12:00 36.0 55 18 130/67 (88) 97 Room Air 08/07/21 08:00 97 Room Air 08/07/21 07:48 36.0 60 16 150/70 (96) 97 Room Air I & O 08/08/21 06:59 Intake Total 1160 ml Output Total 1300 ml Balance -140 ml General Appearance: No Apparent Distress, WD/WN Respiratory: Lungs Clear, Normal Breath Sounds, No Accessory Muscle Use, No Respiratory Distress Cardiovascular: Regular Rate, Rhythm, No Murmur, Normal Peripheral Pulses, Gallop/S4 Gastrointestinal: Non Tender, Soft Extremity: Non Tender, No Calf Tenderness, No Pedal Edema Neurologic/Psychiatric: Alert, Oriented x3, Normal Mood/Affect Skin: Normal Color, Warm/Dry Results Lab Laboratory Tests 08/08/21 05:36: White Blood Count 4.9, Red Blood Count 2.76L, Hemoglobin 9.0L, Hematocrit 27L, Mean Corpuscular Volume 99, Mean Corpuscular Hemoglobin 33, Mean Corpuscular Hemoglobin Concent 33, Red Cell Distribution Width 12.5, Platelet Count 181, Mean Platelet Volume 11.5, Sodium Level 141, Potassium Level 3.8, Chloride Level 113H, Carbon Dioxide Level 20L, Anion Gap 8, Blood Urea Nitrogen 21H, Creatinine 1.19, Estimat Glomerular Filtration Rate 46, BUN/Creatinine Ratio 18, Glucose Level 99, Calcium Level 7.8L Microbiology 08/04/21 Urine Culture - Final, Complete Escherichia coli Assessment/Plan Assessment/Plan Admission Dx Assessment and Plan Labile HTN- followed by cardiology. recently elevated serum catecholamines. CT abdomen with and without IV contrast done yesterday- no suspicious adrenal lesion according to radiology. Renal artery doppler US yesterday- Normal- appearing kidneys. No Doppler findings are seen that would suggest hemodynamic stenosis of the renal arteries according to report. Orthostatic hypotension- wearing thigh high taj hose Intractable nausea/vomiting w/ GERD- on protonix Anxiety- taking Paxil UTI- being treated with ceftriaxone Dementia- on donepezil Supervisory-Addendum Brief Verification & Attestation Participated in pt care: history, physical Personally performed: exam, history, supervision of care Care discussed with: Medical Student Procedures: n/a Results interpretation: Verified all documentation Patient seen and assessed. Feeling better. Will DC elavil and increase paroxetine to 10mg daily. I discussed care with patient's son, Adam, over the phone last night. Will plan on DC in next day or 2 if BP remains stable with no orthostatic episodes. SANDRA JETER Aug 08, 2021 07:52 YADIEL ARAUJO DO Aug 08, 2021 12:45
--- NOTE | 2021-08-08 08:32 | Cardiology Progress Note ---
Subjective Date Seen by Provider: Aug 08, 2021 Time Seen by Provider: 08:30 Subjective/Events-last exam Patient in bed, no new complaints. States nausea and dizziness have improved. Denies any chest pain Review of Systems General: No Chills, No Night Sweats, No Fatigue, No Malaise, No Appetite, No Other HEENT: No Head Aches, No Visual Changes, No Eye Pain, No Ear Pain, No Dysphasia, No Sinus Congestion, No Post Nasal Drip, No Sore Throat, No Other Pulmonary: No Dyspnea, No Cough, No Pleuritic Chest Pain, No Other Cardiovascular: No: Chest Pain, Palpitations, Orthopnea, Paroxysmal Noc. Dyspnea, Edema, Lt Headedness, Other Objective-Cardiology Exam Last Set of Vital Signs Vital Signs 08/08/21 08/08/21 11:50 12:13 Temp 35.8 Pulse 53 Resp 20 B/P (MAP) 141/63 (89) Pulse Ox 96 O2 Delivery Room Air I&O Intake and Output 08/08/21 00:00 Intake Total 1360 ml Output Total 1800 ml Balance -440 ml Intake Oral 1360 ml Output Urine Total 1800 ml # Voids 2 General: Alert, Oriented X3, Cooperative HEENT: Atraumatic, PERRLA Neck: Supple, No JVD, No Thyromegaly Lungs: Clear to Auscultation, Normal Air Movement Heart: Regular Rate, Normal S1, Normal S2, No Murmurs Abdomen: Normal Bowel Sounds, Soft, No Tenderness, No Hepatosplenomegaly, No Masses Extremities: No Clubbing, No Cyanosis, No Edema, Normal Pulses, No Tenderness/Swelling Skin: No Rashes, No Breakdown, No Significant Lesion Neuro: Normal Gait, Normal Speech, Strength at 5/5 X4 Ext, Normal Tone, Sensation Intact Psych/Mental Status: Mental Status NL, Mood NL Results Lab Laboratory Tests 08/08/21 05:36 A/P-Cardiology Admission Diagnosis Nausea/Vomiting UTI Orthostatic hypotension Assessment/Plan Nausea/vomiting, has history of nausea, gastritis and esophagitis noted on CT scan. Patient reporting improvement of symptoms. Managed by primary care physician UTI, started on Ceftriaxone, management per medical services Acute kidney injury, kidney function improved, CT of the abdomen suggestive of atrophic kidney, renal arterial Doppler showing no renal artery stenosis. Mildly elevated troponin, EKG showing SR with no acute ST changes. Patient denies any chest pain, stress test done in 2018 showing no ischemia or infarct. Will continue to monitor. May consider stress test as outpatient. Orthostatic hypotension, multiple falls, underwent tilt table test on 03/14/2021 and was significantly positive for vasodepressive syncope. Labile hypertension, had an episode of extreme high blood pressure with blood pressure over 200 systolic then having a significant drop in her blood pressure during tilt table test starting at blood pressure over 200 then down to the blood pressure in the 70s. Hydralazine discontinued on this admission. Currently on amlodipine 10 mg daily and clonidine 0.1 mg 3 times daily and her blood pressure is better. Continue to monitor Echocardiogram was done in February 2021 showing normal left ventricular size, ejection fraction 65 to 70%, grade 1 diastolic dysfunction, mild MR, PA pressure 30 mmHg Tilt table test done on 03/14/2021 was positive for vasodepressive syncope, had a baseline severe hypertension with blood pressure 188/90 and during syncopal episode her blood pressure was 69/40. Heart rate continued to be between 80-100 Sinus node dysfunction with sinus bradycardia, asymptomatic at this time. During tilt table test had appropriate increase in her heart rate, no dropping her heart rate. History of mild carotid stenosis, last ultrasound was done in February 2021. Chronic back pain, using a wheelchair History of anxiety, maintained on Xanax as needed, managed by Dr. Hernandez History of tonsillectomy, hysterectomy, laminectomy, lumbar fusion. Supervisory-Addendum Brief Supervisory Addendum Participated in pt care: history, MDM, physical Personally performed: exam, history, MDM Care discussed with: OPHELIA Results interpretation: Verified all documentation Notes: Patient was seen and evaluated with John, examination performed, management plan was discussed, agree with the current scribed note, I made few changes to the note using Italic font JOHN VALDES Aug 08, 2021 08:32 DIANE DELA CRUZ MD Aug 08, 2021 15:30
[2021-08-08] MEDS: cefTRIAXone 1 GM PRE-MIX 50 ML IV SCH (09:08)
[2021-08-08] MEDS: LORATADINE (CLARITIN) 10 MG TAB PO SCH (09:08)
[2021-08-08] MEDS: PANTOPRAZOLE 40 MG (PROTONIX) TAB PO SCH ×2 (09:08→21:20)
[2021-08-08] MEDS: NS IV 1000 ML 1,000 ML IV SCH (09:25)
[2021-08-08] MEDS: cloNIDine 0.1 MG (CATAPRES) TAB PO SCH ×3 (09:27→21:00)
[2021-08-08] MEDS: amLODIPine 10 MG (NORVASC) TAB PO SCH (09:27)
[2021-08-08] MEDS: ACETAMINOPHEN 500 MG TAB (TYLENOL) PO SCH ×3 (09:29→21:20)
[2021-08-08 11:50] VITALS: BP 141/63
--- NOTE | 2021-08-08 11:55 | Physical Therapy Daily Note ---
PT Daily Note-Current Subjective Patient lying supine in bed upon PT arrival, agreeable to treatment. Patient reports 0/10 pain currently. Mental Status Patient Orientation: Person, Place, Time, Situation Transfers SCALE: Activities may be completed with or without assistive devices. 1-Viezshlkjz-qfzpgul completes the activity by him/herself with no assistance from a helper. 5-Set-up or Clean-up Assistance-helper sets up or cleans up; patient completes activity. [place] assists only prior to or following the activity. 4-Supervision or Touching Assistance-helper provides verbal cues and/or touching/steadying and/or contact guard assistance as patient completes activity. Assistance may be provided throughout the activity or intermittently. 3-Partial/Moderate Assistance-helper does LESS THAN HALF the effort. [place] lifts, holds or supports trunk or limbs, but provides less than half the effort. 2-Substantial/Maximal Assistance-helper does MORE THAN HALF the effort. [place] lifts or holds trunk or limbs and provides more than half the effort. 2-Luxnadrlg-uvpbfp does ALL the effort. Patient does none of the effort to complete the activity. Or, the assistance of 2 or more helpers is required for the patient to complete the activity. If activity was not attempted, code reason: 7-Patient Refused. 9-Not Applicable-not attempted and the patient did not perform the activity before the current illness, exacerbation or injury. 10-Not Attempted due to Environmental Limitations-(lack of equipment, weather restraints, etc.). 88-Not Attempted due to Medical Conditions or Safety Concerns. Roll Left & Right (QC): 5 Sit to Lying (QC): 5 Lying to Sitting/Side of Bed(Q: 5 Sit to Stand (QC): 4 Chair/Hvf-qi-Yxdyl Xfer(QC): 4 Gait Training Does the Patient Walk?: Yes Distance: 300 Walk 10 feet (QC): 5 Walk 50 ft with 2 Turns(QC): 5 Walk 150 ft (QC): 5 Gait Assistive Device: FWW Assessment Current Status: Good Progress Patient tolerated treatment well. Demonstrates goo improvement in bed mobility and gait distance. Patient ambulates 300 feet with FWW, with setup, and verbal cues for safety, progression, and tolerance to activity. Patient in bed post treatment per her request with all needs met, nursing notified, call light in hand. PT Geopolitics Teacher Goals Detention Goals PT Detention Goals Time Frame: Aug 18, 2021 Roll Left & Right (QC): 6 Sit to Lying (QC): 6 Lying-Sitting on Side/Bed(QC): 6 Sit to Stand (QC): 6 Chair/Ziq-nz-Cxibr Xfer(QC): 6 Toilet Transfer (QC): 6 Does the Patient Walk: Yes Walk 10 feet (QC): 6 Walk 50ft with 2 Turns (QC): 6 Walk 150 ft (QC): 6 PT Plan Treatment/Plan Treatment Plan: Continue Plan of Care Treatment Plan: Bed Mobility, Education, Functional Activity Usman, Functional Strength, Gait, Safety, Therapeutic Exercise, Transfers Treatment Duration: Aug 18, 2021 Frequency: 6 times per week Estimated Hrs Per Day: .25 hour per day Safety Risks/Education Patient Education: Gait Training Teaching Recipient: Patient Teaching Methods: Demonstration, Discussion Response to Teaching: Verbalize Understanding, Return Demonstration Time/GCodes Time In: 0958 Time Out: 1016 Total Billed Treatment Time: 18 Total Billed Treatment Visit, Gait ALAN MELGAR PT Aug 08, 2021 11:55
[2021-08-08 15:30] VITALS: BP 115/65
[2021-08-08 20:00] VITALS: BP 136/71
[2021-08-08] MEDS: PARoxetine 10 MG (PAXIL) TAB PO SCH (21:20)
[2021-08-08] MEDS: DONEPEZIL 5 MG (ARICEPT) TAB PO SCH (21:20)
[2021-08-09] VITALS (7 sets, daily range): BP systolic 121–170; BP diastolic 58–73
[2021-08-09] MEDS: NS IV 1000 ML 1,000 ML IV SCH (06:04)
--- NOTE | 2021-08-09 07:58 | Progress Note ---
Subjective Subjective Date Seen by Provider: Aug 09, 2021 Time Seen by Provider: 06:46 Pt is being seen for follow up pertaining to labile HTN, orthostatic hypotension, nausea and vomiting, GERD, and anxiety. Pt reports that she is doing well this morning. Denies any dizziness or light headedness with standing if she takes her time. Denies any nausea or vomiting. States that she has been able to get up and move around without issue. Reports that she is able to eat and drink without issue. Review of Systems General: No Chills, No Other (fever) HEENT: No Visual Changes, No Eye Pain Pulmonary: No Dyspnea, No Cough, No Other Cardiovascular: No: Chest Pain, Palpitations, Orthopnea, Lt Headedness, Other Gastrointestinal: No: Nausea, Vomiting, Abdominal Pain Genitourinary: No Dysuria, No Frequency Musculoskeletal: No: arm pain, back pain, leg pain Neurological: Numbness (in feet (chronic)); No: Weakness Objective Exam Vital Signs Vital Signs Date Time Temp Pulse Resp B/P (MAP) Pulse Ox O2 Delivery O2 Flow Rate FiO2 08/09/21 07:00 53 08/09/21 03:58 36.2 52 18 121/72 (88) 95 Room Air 08/09/21 01:00 55 08/09/21 00:05 36.1 51 18 135/73 (93) 96 Room Air 08/08/21 20:15 Room Air 08/08/21 20:00 36.2 52 18 136/71 (92) 98 Room Air 08/08/21 19:00 59 08/08/21 15:30 36.2 57 18 115/65 (82) 96 Room Air 08/08/21 12:13 53 08/08/21 11:50 35.8 55 20 141/63 (89) 96 Room Air 08/08/21 09:20 36.4 61 08/08/21 09:00 Room Air I & O 08/09/21 07:00 Intake Total 2565 ml Output Total 1250 ml Balance 1315 ml General Appearance: No Apparent Distress, WD/WN Neck: Non Tender, Supple Respiratory: Lungs Clear, Normal Breath Sounds, No Accessory Muscle Use, No Respiratory Distress Cardiovascular: Regular Rate, Rhythm, No Murmur, Normal Peripheral Pulses, Gallop/S4 Gastrointestinal: Non Tender, Soft Extremity: Non Tender, No Calf Tenderness, No Pedal Edema Neurologic/Psychiatric: Alert, Oriented x3, Normal Mood/Affect Skin: Normal Color, Warm/Dry Lymphatic: No Adenopathy Results Lab Microbiology 08/04/21 Urine Culture - Final, Complete Escherichia coli Assessment/Plan Assessment/Plan Admission Dx Assessment and Plan Labile HTN- followed by cardiology. Catapres stopped last night due to bradyc ardia. Recently elevated serum catecholamines. CT abdomen with and without IV contrast done 08/07- no suspicious adrenal lesion according to radiology. Renal artery doppler US 08/07- Normal-appearing kidneys. No Doppler findings are seen that would suggest hemodynamic stenosis of the renal arteries according to report. Orthostatic hypotension- wearing thigh high taj hose Intractable nausea/vomiting w/ GERD- on protonix Anxiety- taking Paxil, dose increased to 10mg HS yesterday UTI- being treated with ceftriaxone Dementia- on donepezil Admission Dx Clinical Quality Measures Admission Status Admission Dx Supervisory-Addendum Brief Verification & Attestation Participated in pt care: history, physical Personally performed: exam, history, supervision of care Care discussed with: Medical Student Procedures: n/a Results interpretation: Verified all documentation Patient seen and assessed. Will change amlodopine to 5mg po BID and clonidine to 0.1mg BID. Give MOM with senokot-S now. SANDRA JETER Aug 09, 2021 07:58 YADIEL ARAUJO DO Aug 09, 2021 13:16
--- NOTE | 2021-08-09 08:19 | Cardiology Progress Note ---
Subjective Date Seen by Provider: Aug 09, 2021 Time Seen by Provider: 08:17 Subjective/Events-last exam Patient sitting up in bed, denies any further nausea or worsening dizziness. Reports has not had a BM in several days Review of Systems General: No Chills, No Night Sweats, No Fatigue, No Malaise, No Appetite, No Other HEENT: No Head Aches, No Visual Changes, No Eye Pain, No Ear Pain, No Dysphasia, No Sinus Congestion, No Post Nasal Drip, No Sore Throat, No Other Pulmonary: No Dyspnea, No Cough, No Pleuritic Chest Pain, No Other Cardiovascular: No: Chest Pain, Palpitations, Orthopnea, Paroxysmal Noc. Dyspnea, Edema, Lt Headedness, Other Objective-Cardiology Exam Last Set of Vital Signs Vital Signs 08/09/21 08/09/21 03:58 08:04 Temp 36.2 Pulse 56 Resp 16 B/P (MAP) 162/72 (102) Pulse Ox 96 O2 Delivery Room Air I&O Intake and Output 08/09/21 00:00 Intake Total 1365 ml Output Total 450 ml Balance 915 ml Intake Oral 1365 ml Output Urine Total 450 ml # Voids 2 General: Alert, Oriented X3, Cooperative HEENT: Atraumatic, PERRLA Neck: Supple, No JVD, No Thyromegaly Lungs: Clear to Auscultation, Normal Air Movement Heart: Regular Rate, Normal S1, Normal S2, No Murmurs Abdomen: Normal Bowel Sounds, Soft, No Tenderness, No Hepatosplenomegaly, No Masses Extremities: No Clubbing, No Cyanosis, No Edema, Normal Pulses, No Tenderness/Swelling Skin: No Rashes, No Breakdown, No Significant Lesion Neuro: Normal Gait, Normal Speech, Strength at 5/5 X4 Ext, Normal Tone, Sensation Intact Psych/Mental Status: Mental Status NL, Mood NL A/P-Cardiology Admission Diagnosis Nausea/Vomiting UTI Orthostatic hypotension Assessment/Plan Nausea/vomiting, has history of nausea, gastritis and esophagitis noted on CT scan. Patient reporting improvement of symptoms. Managed by primary care physician UTI, started on Ceftriaxone, management per medical services Acute kidney injury, kidney function improved, CT of the abdomen suggestive of atrophic kidney, renal arterial Doppler showing no renal artery stenosis. Mildly elevated troponin, EKG showing SR with no acute ST changes. Patient denies any chest pain, stress test done in 2018 showing no ischemia or infarct. Will continue to monitor. May consider stress test as outpatient. Orthostatic hypotension, multiple falls, underwent tilt table test on 03/14/2021 and was significantly positive for vasodepressive syncope. Labile hypertension, had an episode of extreme high blood pressure with blood pressure over 200 systolic then having a significant drop in her blood pressure during tilt table test starting at blood pressure over 200 then down to the blood pressure in the 70s. Hydralazine discontinued on this admission, patient reports causing worsening nausea. Currently on amlodipine 10 mg daily and clonidine 0.1 mg 3 times daily and her blood pressure is better. Clonidine held last night d/t bradycardia Changing clonidine to 0.1 mg twice daily and monitor tolerance and response Echocardiogram was done in February 2021 showing normal left ventricular size, ejection fraction 65 to 70%, grade 1 diastolic dysfunction, mild MR, PA pressure 30 mmHg Tilt table test done on 03/14/2021 was positive for vasodepressive syncope, had a baseline severe hypertension with blood pressure 188/90 and during syncopal episode her blood pressure was 69/40. Heart rate continued to be between 80-100 Sinus node dysfunction with sinus bradycardia, asymptomatic at this time. During tilt table test had appropriate increase in her heart rate, no dropping her heart rate. Constipation, management per medical services History of mild carotid stenosis, last ultrasound was done in February 2021. Chronic back pain, using a wheelchair History of anxiety, maintained on Xanax as needed, managed by Dr. Hernandez History of tonsillectomy, hysterectomy, laminectomy, lumbar fusion. Supervisory-Addendum Brief Supervisory Addendum Participated in pt care: history, MDM, physical Personally performed: exam, history, MDM Care discussed with: OPHELIA Results interpretation: Verified all documentation Notes: Patient was seen and evaluated with John, examination performed, management plan was discussed, agree with the current scribed note, I made few changes to the note using Italic font Patient is laying down in bed, no further nausea was noted, complaining of constipation Was bradycardic but asymptomatic, has underlying sinus node dysfunction Discussed the management plan with Dr. Hernandez, will change clonidine to twice daily and monitor tolerance and response Monitor blood pressure JOHN VALDES Aug 09, 2021 08:19 DIANE DELA CRUZ MD Aug 09, 2021 09:04
[2021-08-09] MEDS: ACETAMINOPHEN 500 MG TAB (TYLENOL) PO SCH ×3 (08:38→19:39)
[2021-08-09] MEDS: cefTRIAXone 1 GM PRE-MIX 50 ML IV SCH (08:38)
[2021-08-09] MEDS: LORATADINE (CLARITIN) 10 MG TAB PO SCH (08:39)
[2021-08-09] MEDS: PANTOPRAZOLE 40 MG (PROTONIX) TAB PO SCH ×2 (08:39→19:40)
[2021-08-09] MEDS ORDERED: SENNA W/DOCUSATE (SENOKOT S) TABLET PO ONE (09:00)
[2021-08-09] MEDS ORDERED: MILK OF MAGNESIA 400 MG/5 ML 30 ML UDC PO ONE (09:00)
[2021-08-09] MEDS ORDERED: amLODIPine 5 MG (NORVASC) TAB PO SCH (09:00)
[2021-08-09] MEDS: cloNIDine 0.1 MG (CATAPRES) TAB PO SCH ×2 (10:03→19:39)
--- NOTE | 2021-08-09 11:05 | Physical Therapy Daily Note ---
PT Daily Note-Current Subjective Patient presented in bed and agreed to participate in PT. Mental Status Patient Orientation: Person, Place, Situation Attachments: IV Transfers SCALE: Activities may be completed with or without assistive devices. 8-Uawitgadfq-acxiohg completes the activity by him/herself with no assistance from a helper. 5-Set-up or Clean-up Assistance-helper sets up or cleans up; patient completes activity. [place] assists only prior to or following the activity. 4-Supervision or Touching Assistance-helper provides verbal cues and/or touching/steadying and/or contact guard assistance as patient completes activity. Assistance may be provided throughout the activity or intermittently. 3-Partial/Moderate Assistance-helper does LESS THAN HALF the effort. [place] lifts, holds or supports trunk or limbs, but provides less than half the effort. 2-Substantial/Maximal Assistance-helper does MORE THAN HALF the effort. [place] lifts or holds trunk or limbs and provides more than half the effort. 8-Clbbtidkq-hlmrnb does ALL the effort. Patient does none of the effort to complete the activity. Or, the assistance of 2 or more helpers is required for the patient to complete the activity. If activity was not attempted, code reason: 7-Patient Refused. 9-Not Applicable-not attempted and the patient did not perform the activity before the current illness, exacerbation or injury. 10-Not Attempted due to Environmental Limitations-(lack of equipment, weather restraints, etc.). 88-Not Attempted due to Medical Conditions or Safety Concerns. Lying to Sitting/Side of Bed(Q: 4 Sit to Stand (QC): 4 Chair/Zrz-po-Yyahq Xfer(QC): 4 Patient performed all transfers with CGA. Patient reported slight light headedness upon standing. Gait Training Does the Patient Walk?: Yes Distance: 200' Walk 10 feet (QC): 4 Walk 50 ft with 2 Turns(QC): 4 Walk 150 ft (QC): 4 Gait Assistive Device: FWW Patient reported minimal fatigue with ambulation. Exercises Seated Therapy Exercises: Long arc quads, Hip flexion Seated Reps: 15 Assessment Patient performed seated exercises and ambulation during therapy session. Patient reported her blood pressure had been slightly higher this morning. Patient blood pressure was 182/76 pre tx. Patient reported minimal fatigue after therapy session. Patient left in her chair with nurse call, phone, and all needs met. PT Prison Goals Prison Goals PT Prison Goals Time Frame: Aug 18, 2021 Roll Left & Right (QC): 6 Sit to Lying (QC): 6 Lying-Sitting on Side/Bed(QC): 6 Sit to Stand (QC): 6 Chair/Nsw-il-Bxlwe Xfer(QC): 6 Toilet Transfer (QC): 6 Does the Patient Walk: Yes Walk 10 feet (QC): 6 Walk 50ft with 2 Turns (QC): 6 Walk 150 ft (QC): 6 PT Plan Problem List Problem List: Activity Tolerance, Functional Strength, Safety, Balance, Gait, Transfer, Bed Mobility, ROM Treatment/Plan Treatment Plan: Continue Plan of Care Treatment Plan: Bed Mobility, Education, Functional Activity Usman, Functional Strength, Gait, Safety, Therapeutic Exercise, Transfers Treatment Duration: Aug 18, 2021 Frequency: 6 times per week Estimated Hrs Per Day: .25 hour per day Time/GCodes Time In: 1018 Time Out: 1033 Total Billed Treatment Time: 14 Total Billed Treatment 1 Visit FA 14 min ANAID BOSE PT Aug 09, 2021 11:05
[2021-08-09] MEDS: PARoxetine 10 MG (PAXIL) TAB PO SCH (19:39)
[2021-08-09] MEDS: DONEPEZIL 5 MG (ARICEPT) TAB PO SCH (19:40)
[2021-08-09] MEDS: amLODIPine 5 MG (NORVASC) TAB PO SCH (19:40)
[2021-08-10 00:10] VITALS: BP 128/70
[2021-08-10] MEDS: NS IV 1000 ML 1,000 ML IV SCH (02:45)
[2021-08-10 04:34] VITALS: BP 147/72
[2021-08-10 06:07] LABS: HEMATOCRIT 28 % (35-52); HEMOGLOBIN 9.3 g/dL (11.5-16.0); MEAN CORPUSCULAR HEMOGLOBIN 32 pg (25-34); MEAN CORPUSCULAR HGB CONC 33 g/dL (32-36); MEAN CORPUSCULAR VOLUME 97 fL (80-99); PLATELET COUNT 186 10^3/uL (130-400); WHITE BLOOD COUNT 5.8 10^3/uL (4.3-11.0)
[2021-08-10 06:22] LABS: POTASSIUM 3.6 MMOL/L (3.6-5.0)
[2021-08-10 06:23] LABS: CALCIUM 7.9 MG/DL (8.5-10.1)
[2021-08-10 06:27] LABS: CREATININE SERUM 1.09 MG/DL (0.60-1.30)
--- NOTE | 2021-08-10 07:26 | Progress Note ---
Subjective Subjective Date Seen by Provider: Aug 10, 2021 Time Seen by Provider: 06:53 Pt is being seen for follow up pertaining to labile HTN, orthostatic hypotension, nausea and vomiting, GERD, and anxiety. Pt reports that she is doing well this morning. States that she has been having some chills for the last 3 hours, denies a fever. She is not having any dizziness or light headedness when she stands up . Denies any nausea or vomiting. Still has not been able to have a bowel movement. Reports that she is able to eat and drink without issue. Review of Systems General: Chills; No Other (fever) HEENT: No Visual Changes, No Eye Pain Pulmonary: No Dyspnea, No Cough, No Other Cardiovascular: No: Chest Pain, Palpitations, Orthopnea, Lt Headedness, Other Gastrointestinal: No: Nausea, Vomiting, Abdominal Pain Genitourinary: No Dysuria, No Frequency Musculoskeletal: No: arm pain, back pain, leg pain Neurological: Numbness (in feet (chronic)); No: Weakness Objective Exam Vital Signs Vital Signs Date Time Temp Pulse Resp B/P (MAP) Pulse Ox O2 Delivery O2 Flow Rate FiO2 08/10/21 04:34 37.0 58 18 147/72 (97) 94 Room Air 08/10/21 01:00 53 08/10/21 00:10 36.9 50 20 128/70 (89) 96 Room Air 08/09/21 19:35 Room Air 08/09/21 19:34 36.6 56 16 170/72 (104) 95 Room Air 08/09/21 19:00 71 08/09/21 16:27 36.8 57 20 121/58 (79) 95 Room Air 08/09/21 13:28 56 18 160/68 (98) 08/09/21 13:00 55 08/09/21 12:00 36.2 58 18 164/70 (101) 97 Room Air 08/09/21 09:00 Room Air 08/09/21 08:04 56 16 162/72 (102) 96 Room Air I & O 08/10/21 07:00 Intake Total 2430 ml Output Total 1550 ml Balance 880 ml General Appearance: No Apparent Distress, WD/WN Neck: Non Tender, Supple Respiratory: Lungs Clear, Normal Breath Sounds, No Accessory Muscle Use, No Respiratory Distress Cardiovascular: Regular Rate, Rhythm, No Murmur, Normal Peripheral Pulses Gastrointestinal: Non Tender, Soft Extremity: Non Tender, No Calf Tenderness, No Pedal Edema Neurologic/Psychiatric: Alert, Oriented x3, Normal Mood/Affect Skin: Normal Color, Warm/Dry Lymphatic: No Adenopathy Results Lab Laboratory Tests 08/10/21 05:50: White Blood Count 5.8, Red Blood Count 2.89L, Hemoglobin 9.3L, Hematocrit 28L, Mean Corpuscular Volume 97, Mean Corpuscular Hemoglobin 32, Mean Corpuscular Hemoglobin Concent 33, Red Cell Distribution Width 12.2, Platelet Count 186, Mean Platelet Volume 11.0, Sodium Level 139, Potassium Level 3.6, Chloride Level 111H, Carbon Dioxide Level 19L, Anion Gap 9, Blood Urea Nitrogen 22H, Creatinine 1.09, Estimat Glomerular Filtration Rate 51, BUN/Creatinine Ratio 20, Glucose Level 94, Calcium Level 7.9L Microbiology 08/04/21 Urine Culture - Final, Complete Escherichia coli Assessment/Plan Assessment/Plan Admission Dx Assessment and Plan Labile HTN- followed by cardiology. Catapres changed to 0.1mg BID yesterday. A mlodipine changed to 5mg BID yesterday. Recently elevated serum catecholamines. CT abdomen with and without IV contrast done 08/07- no suspicious adrenal lesion according to radiology. Renal artery doppler US 08/07- Normal-appearing kidneys. No Doppler findings are seen that would suggest hemodynamic stenosis of the renal arteries according to report. Orthostatic hypotension- wearing thigh high taj hose Intractable nausea/vomiting w/ GERD- on protonix Anxiety- taking Paxil, dose increased to 10mg HS yesterday UTI- being treated with ceftriaxone Dementia- on donepezil Constipation- started on MOM and senna yesterday Admission Dx Clinical Quality Measures Admission Status Admission Dx Supervisory-Addendum Brief Verification & Attestation Participated in pt care: history, physical Personally performed: exam, history, supervision of care Care discussed with: Medical Student Procedures: n/a Results interpretation: Verified all documentation Patient seen and evaluated. Doing well so will DC home with Home Health SANDRA JETER Aug 10, 2021 07:26 YADIEL ARAUJO DO Aug 10, 2021 13:49
[2021-08-10 07:43] VITALS: BP 132/63
--- NOTE | 2021-08-10 08:16 | Cardiology Progress Note ---
Subjective Date Seen by Provider: Aug 10, 2021 Time Seen by Provider: 08:15 Subjective/Events-last exam Patient is laying down in bed, still having mild nausea but overall feeling significantly better. Review of Systems General: No Chills, No Night Sweats; Fatigue; No Malaise, No Appetite, No Other HEENT: No Head Aches, No Visual Changes, No Eye Pain, No Ear Pain, No Dysphasia, No Sinus Congestion, No Post Nasal Drip, No Sore Throat, No Other Pulmonary: No Dyspnea, No Cough, No Pleuritic Chest Pain, No Other Cardiovascular: No: Chest Pain, Palpitations, Orthopnea, Paroxysmal Noc. Dyspnea, Edema, Lt Headedness, Other Objective-Cardiology Exam Last Set of Vital Signs Vital Signs 08/10/21 07:43 Temp 36.0 Pulse 52 Resp 18 B/P (MAP) 132/63 (86) Pulse Ox 95 O2 Delivery Room Air I&O Intake and Output 08/10/21 00:00 Intake Total 2430 ml Output Total 1600 ml Balance 830 ml Intake Oral 1430 ml IV Total 1000 ml Output Urine Total 1600 ml # Voids 3 General: Alert, Oriented X3, Cooperative HEENT: Atraumatic, PERRLA Neck: Supple, No JVD, No Thyromegaly Lungs: Clear to Auscultation, Normal Air Movement Heart: Regular Rate, Normal S1, Normal S2, No Murmurs Abdomen: Normal Bowel Sounds, Soft, No Tenderness, No Hepatosplenomegaly, No Masses Extremities: No Clubbing, No Cyanosis, No Edema, Normal Pulses, No T enderness/Swelling Skin: No Rashes, No Breakdown, No Significant Lesion Neuro: Normal Gait, Normal Speech, Strength at 5/5 X4 Ext, Normal Tone, Sensation Intact Psych/Mental Status: Mental Status NL, Mood NL Results Lab Laboratory Tests 08/10/21 05:50 A/P-Cardiology Admission Diagnosis Nausea/Vomiting UTI Orthostatic hypotension Assessment/Plan Nausea/vomiting, has history of nausea, gastritis and esophagitis noted on CT scan. Patient reporting improvement of symptoms. Managed by primary care physician UTI, started on Ceftriaxone, management per medical services Anemia, worsening H&H, managed by primary care physician Acute kidney injury, kidney function improved, CT of the abdomen suggestive of atrophic kidney, renal arterial Doppler showing no renal artery stenosis. Mildly elevated troponin, EKG showing SR with no acute ST changes. Patient denies any chest pain, stress test done in 2018 showing no ischemia or infarct. Will continue to monitor. May consider stress test as outpatient. Orthostatic hypotension, multiple falls, underwent tilt table test on 03/14/2021 and was significantly positive for vasodepressive syncope. Labile hypertension, had an episode of extreme high blood pressure with blood pressure over 200 systolic then having a significant drop in her blood pressure during tilt table test starting at blood pressure over 200 then down to the blood pressure in the 70s. Hydralazine discontinued on this admission, patient reports causing worsening nausea. Currently on amlodipine 10 mg daily and clonidine 0.1 mg twice daily, blood pressure is better and tolerating medication well. Echocardiogram was done in February 2021 showing normal left ventricular size, ejection fraction 65 to 70%, grade 1 diastolic dysfunction, mild MR, PA pressure 30 mmHg Tilt table test done on 03/14/2021 was positive for vasodepressive syncope, had a baseline severe hypertension with blood pressure 188/90 and during syncopal episode her blood pressure was 69/40. Heart rate continued to be between 80-100 Sinus node dysfunction with sinus bradycardia, asymptomatic at this time. During tilt table test had appropriate increase in her heart rate, no dropping her heart rate. Constipation, management per medical services History of mild carotid stenosis, last ultrasound was done in February 2021. Chronic back pain, using a wheelchair History of anxiety, maintained on Xanax as needed, managed by Dr. Hernandez History of tonsillectomy, hysterectomy, laminectomy, lumbar fusion. DIANE DELA CRUZ MD Aug 10, 2021 08:16
[2021-08-10] MEDS ORDERED: SENNA W/DOCUSATE (SENOKOT S) TABLET PO ONE (08:30)
[2021-08-10] MEDS ORDERED: MILK OF MAGNESIA 400 MG/5 ML 30 ML UDC PO ONE (08:30)
[2021-08-10] MEDS ORDERED: AMLO-250 PO (08:53)
[2021-08-10] MEDS ORDERED: DONE5TAB30 PO (08:53)
[2021-08-10] MEDS ORDERED: PARO10TA3 PO (08:53)
[2021-08-10] MEDS ORDERED: PANT40TA52 PO (08:53)
--- NOTE | 2021-08-10 08:56 | D/C HH Face to Face Order ---
D/C Face to Face Orders Reconcile Patient Problems Problems Reviewed?: Yes Instructions for Patient Via [employer], Patient Instructions/FollowUp: Fwup with me 1 week Physician to follow Patient: Angel[place]urah Discharge Diet for Home: Low Sodium Diet Patient Data-Allergies,Ht & Wt Patient Allergies: Coded Allergies: Milk Containing Products (Unverified Allergy, Unknown, 04/19/13) FROM UNCODED LIST codeine (Verified Allergy, Unknown, 10/11/20) erythromycin base (Unverified Allergy, Unknown, 08/29/06) metaxalone (Verified Allergy, Unknown, 10/11/20) Height (Feet): 5 Height (Inches): 5.00 Weight (Pounds): 140 Weight (Ounces): 0.0 Home Health Need/Face to Face Date of Face to Face: Aug 10, 2021 Clinical Findings: Unsteady gait I have seen Pt [id number]: Yes Discharged To: Home Diagnosis/Conditions: Labile Hypertension Orthostatic Hypotension Anxiety Chronic Lumbar Radiculopathy Patient is Homebound due to: CognItive deficits, Aden fall risk due to instabilty Homebound Status Due to the above stated illness, injury or surgical procedure (medical condition or diagnosis) and associated clinical findings, the patient is homebound because of his/her inability to leave home except with aid of a supportive device and/or person AND leaving the home requires a considerable and taxing effort or is medically contraindicated. Pt req the following assistanc: Walker Home Health Nursing Orders Home Health Services Order: Nursing Services, Physical Therapy-Evaluate & Treat Home Health Infusion Therapy Line Start Date: Aug 04, 2021 Certify Stmt I certify that this patient is under my care and that I, a nurse practitioner or a physician; a clerical administrative assistant working with me, had a face to face encounter that - meets the physician face to face encounter requirements with this patient as dated. YADIEL ARAUJO DO Aug 10, 2021 08:56
[2021-08-10] MEDS: LORATADINE (CLARITIN) 10 MG TAB PO SCH (09:06)
[2021-08-10] MEDS: amLODIPine 5 MG (NORVASC) TAB PO SCH (09:06)
[2021-08-10] MEDS: BISACODYL 10 MG SUPP (DULCOLAX) PR ONE ×2 (09:06→09:10)
[2021-08-10] MEDS: cloNIDine 0.1 MG (CATAPRES) TAB PO SCH (09:06)
[2021-08-10] MEDS: ACETAMINOPHEN 500 MG TAB (TYLENOL) PO SCH (09:06)
[2021-08-10] MEDS: PANTOPRAZOLE 40 MG (PROTONIX) TAB PO SCH (09:07)
--- NOTE | 2021-08-10 09:40 | Physical Therapy Daily Note ---
PT Daily Note-Current Subjective Patient presented laying in bed and agreed to participate in therapy. Patient reports that she believes she is going home today. Mental Status Patient Orientation: Person, Place, Situation Attachments: IV Transfers SCALE: Activities may be completed with or without assistive devices. 5-Ayenlhcklw-uefdoqz completes the activity by him/herself with no assistance from a helper. 5-Set-up or Clean-up Assistance-helper sets up or cleans up; patient completes activity. [place] assists only prior to or following the activity. 4-Supervision or Touching Assistance-helper provides verbal cues and/or touching/steadying and/or contact guard assistance as patient completes activity. Assistance may be provided throughout the activity or intermittently. 3-Partial/Moderate Assistance-helper does LESS THAN HALF the effort. [place] lifts, holds or supports trunk or limbs, but provides less than half the effort. 2-Substantial/Maximal Assistance-helper does MORE THAN HALF the effort. [place] lifts or holds trunk or limbs and provides more than half the effort. 8-Gkwqnaane-hqkorm does ALL the effort. Patient does none of the effort to complete the activity. Or, the assistance of 2 or more helpers is required for the patient to complete the activity. If activity was not attempted, code reason: 7-Patient Refused. 9-Not Applicable-not attempted and the patient did not perform the activity before the current illness, exacerbation or injury. 10-Not Attempted due to Environmental Limitations-(lack of equipment, weather restraints, etc.). 88-Not Attempted due to Medical Conditions or Safety Concerns. Lying to Sitting/Side of Bed(Q: 6 Sit to Stand (QC): 6 Chair/Zrd-gl-Fspew Xfer(QC): 6 Patient is independent for all transfers. Gait Training Does the Patient Walk?: Yes Distance: 400' Walk 10 feet (QC): 6 Walk 50 ft with 2 Turns(QC): 6 Walk 150 ft (QC): 6 Gait Assistive Device: FWW Patient ambulated for 400' with FWW and was independent. Patient reported slight fatigue and pain in her feet which was normal for her after ambulation. Assessment Patient was independent for ambulation but still fatigues with 400'. Patient is independent for bed mobility and transfers. Patient is left post tx in her chair with nurse call, phone, and all needs met. PT Mcc Goals Asphalt Coater Goals PT Asphalt Coater Goals Time Frame: Aug 18, 2021 Roll Left & Right (QC): 6 Sit to Lying (QC): 6 Lying-Sitting on Side/Bed(QC): 6 Sit to Stand (QC): 6 Chair/Knh-zj-Xgnka Xfer(QC): 6 Toilet Transfer (QC): 6 Does the Patient Walk: Yes Walk 10 feet (QC): 6 Walk 50ft with 2 Turns (QC): 6 Walk 150 ft (QC): 6 PT Plan Problem List Problem List: Activity Tolerance, Functional Strength, Safety, Balance, Gait, ROM Treatment/Plan Treatment Plan: Continue Plan of Care Treatment Plan: Bed Mobility, Education, Functional Activity Usman, Functional Strength, Gait, Safety, Therapeutic Exercise, Transfers Treatment Duration: Aug 18, 2021 Frequency: 6 times per week Estimated Hrs Per Day: .25 hour per day Time/GCodes Time In: 849 Time Out: 903 Total Billed Treatment Time: 14 Total Billed Treatment 1 Visit FA 14 min ANAID BOSE PT Aug 10, 2021 09:40
[2021-08-10 12:12] VITALS: BP 144/65
[2021-08-10 12:45] VITALS: BP 144/65
--- NOTE | 2021-08-10 14:14 | Discharge Summary ---
Diagnosis/Chief Complaint Date of Admission Aug 04, 2021 at 19:13 Date of Discharge Discharge Date: Aug 10, 2021 Discharge Diagnosis 1. Labile Hypertension with Hypertensive Urgency on Admit--Improving 2. Orthostatic Hypotension--on thigh high MATT hose and stable 3. Intractable N/V with GERD--resolved, on protonix 4. Anxiety--started paxil 5. UTI with E. coli--completed rocephin 6. Dementia--started aricept 7. Constipation--suppository given prior to DC 8. Weakness/Fall Risk--doing well with PT 9. Bradycardia--stable on meds 10. Acute on Chronic Renal Insufficiency--BUN/Cr improved 11. Acute on Chronic Anemia--H/H stable 12. Lumbar Spinal Stenosis with Right leg radiculopathy--chronic 13. Type II ME due to hypertensive urgency Discharge Summary Hospital Course Was the Problem List Reviewed?: Yes Hospital Course This is a 80 year old female with a history of labile hypertension with orthostatic hypotension who was brought to the emergency room with elevated blood pressure and nausea. She was concerned that her medications were causing her nausea. She was found to be in hypertensive urgency in the emergency room and also found to have an acute UTI with acute renal insufficiency. She was admitted to the medical floor and given IV rocephin for her UTI as well as IV fluid rehydration for her renal insufficiency. She was initially place on aml odopine and doxazosin for her labile hypertension but the doxazosin was discontinued due to her history of severe orthostatic hypotension. She was started on clonidine 0.1mg po TID and her blood pressures improved. She had minimal dizziness as long as she had her thigh high MATT hose on and got up slowly. She did undergo a renal artery US which showed no evidence of renal artery stenosis. She also underwent a CT scan of the abdomen with contrast once her BUN and Cr were improved due to elevated serum catecholamines. This showed no evidence or an adrenal mass. She was started on paroxetine for her anxiety and aricept for her dementia during her hospital stay and tolerated both of these medications with no side effects. Her nausea resolved and she was eating well. She did have some bradycardia requiring adjustment of her clonidine down to 0.1mg po BID. She is doing well and has been up ambulating with PT and will be discharged home and resume home health. Labs Laboratory Tests 08/08/21 05:36: Red Blood Count 2.76L, Hemoglobin 9.0L, Hematocrit 27L, Chloride Level 113H, Carbon Dioxide Level 20L, Blood Urea Nitrogen 21H, Calcium Level 7.8L 08/10/21 05:50: Red Blood Count 2.89L, Hemoglobin 9.3L, Hematocrit 28L, Chloride Level 111H, Carbon Dioxide Level 19L, Blood Urea Nitrogen 22H, Calcium Level 7.9L Procedures None. Discharge Physical Examination Allergies: Coded Allergies: Milk Containing Products (Unverified Allergy, Unknown, 04/19/13) FROM UNCODED LIST codeine (Verified Allergy, Unknown, 10/11/20) erythromycin base (Unverified Allergy, Unknown, 08/29/06) metaxalone (Verified Allergy, Unknown, 10/11/20) Vitals & I&Os Vital Signs Date Time Temp Pulse Resp B/P (MAP) Pulse Ox O2 Delivery O2 Flow Rate FiO2 08/10/21 12:45 35.9 55 18 144/65 97 Room Air General Appearance: Alert, Oriented X3, No Acute Distress Cardiovascular: Regular Rate Extremities: No Clubbing, No Cyanosis, No Edema Psych/Mental Status: Mental Status NL Discharge Home Medications Reviewed and agree with Discharge Medication list on patient's Discharge Instruction sheet Instructions to Patient/Family Please see electronic discharge instructions given to patient. YADIEL ARAUJO DO Aug 10, 2021 14:14
== END 2021-08-10 14:10 | disposition home health service (06) ==
LOC: EDUNIT# 14:25 → ER 14:30 → 4TH 19:13
PROVIDERS: ADMIT Internal Medicine; ATTEND Family Medicine
DX: I16.0 Hypertensive urgency (principal); I95.1 Orthostatic hypotension; I12.9 Hypertensive chronic kidney disease with stage 1 through stage 4 chronic kidney disease, or unspecified chronic kidney disease; N18.9 Chronic kidney disease, unspecified; K21.9 Gastro-esophageal reflux disease without esophagitis; N39.0 Urinary tract infection, site not specified; B96.20 Unspecified Escherichia coli [E. coli] as the cause of diseases classified elsewhere; R79.89 Other specified abnormal findings of blood chemistry; R53.1 Weakness; D50.0 Iron deficiency anemia secondary to blood loss (chronic); M48.061 Spinal stenosis, lumbar region without neurogenic claudication; M54.16 Radiculopathy, lumbar region; M54.9 Dorsalgia, unspecified; G89.29 Other chronic pain; N17.9 Acute kidney failure, unspecified; D64.9 Anemia, unspecified; E78.00 Pure hypercholesterolemia, unspecified; E03.9 Hypothyroidism, unspecified; K59.09 Other constipation; F41.9 Anxiety disorder, unspecified; F03.90 Unspecified dementia, unspecified severity, without behavioral disturbance, psychotic disturbance, mood disturbance, and anxiety; Z90.89 Acquired absence of other organs; Z86.73 Personal history of transient ischemic attack (TIA), and cerebral infarction without residual deficits; Z90.710 Acquired absence of both cervix and uterus; Z79.899 Other long term (current) drug therapy
CPT/HCPCS: 74170; 74176; 76770; 80048 ×4; 80053; 81000; 83690; 84484; 85025 ×2; 85027 ×3; 87077; 87088; 87186; 87635; 87636; 87804; 93005; 93975; 96361; 96374; 96375; 97116; 97162; 97530 ×2; 99284; G0378; 36415

== ENCOUNTER → 2021-09-28 | Outpatient (CLI) | payer MEDICARE, OTHER ==
[~2021-09-28] MED LIST changes: +ACET-2650 PO; +AMT10T PO; +CHOL200059 PO; +DOCU100C37 PO; +DONE5TAB30 PO; +FAMO20TA3 PO; +LORA-53 PO; +LORA10TA7 PO; +MAGN400T39 PO; +PANT40TA52 PO; +PARO10TA3 PO; +POTA-51 PO
== END ==
LOC: CARD 12:30
PROVIDERS: ATTEND Internal Medicine Cardiovascular Disease
DX: I49.9 Cardiac arrhythmia, unspecified (principal)
CPT/HCPCS: 93225; 93226

== ENCOUNTER 2021-10-18 00:20 | Inpatient (IN) | payer MEDICARE, OTHER ==
[~2021-10-18] VITALS: Ht 165.1 cm; Wt 66.8 kg
[2021-10-18] VITALS (9 sets, daily range): BP systolic 142–189; BP diastolic 60–89
[2021-10-18] MEDS ORDERED: hydrALAZINE (APESOLINE) 20 MG/ML VIAL IV ONE (01:15)
[2021-10-18 01:44] LABS: BASOPHILS # (AUTO) 0.1 10^3/uL (0.0-0.1); BASOPHILS % (AUTO) 1 % (0-10); EOSINOPHILS # (AUTO) 0.3 10^3/uL (0.0-0.3); EOSINOPHILS % (AUTO) 5 % (0-10); HEMATOCRIT 34 % (35-52); HEMOGLOBIN 11.1 g/dL (11.5-16.0); LYMPHOCYTES # (AUTO) 3.1 10^3/uL (1.0-4.0); LYMPHOCYTES % (AUTO) 48 % (12-44); MEAN CORPUSCULAR HEMOGLOBIN 32 pg (25-34); MEAN CORPUSCULAR HGB CONC 33 g/dL (32-36); MEAN CORPUSCULAR VOLUME 97 fL (80-99); MEAN PLATELET VOLUME 10.7 fL (9.0-12.2); MONOCYTES # (AUTO) 0.7 10^3/uL (0.0-1.0); MONOCYTES % (AUTO) 10 % (0-12); NEUTROPHILS # (AUTO) 2.4 10^3/uL (1.8-7.8); NEUTROPHILS % (AUTO) 37 % (42-75); PLATELET COUNT 182 10^3/uL (130-400); WHITE BLOOD COUNT 6.6 10^3/uL (4.3-11.0)
[2021-10-18 01:52] LABS: ALBUMIN 3.5 GM/DL (3.2-4.5); CHLORIDE 105 MMOL/L (98-107); POTASSIUM 3.9 MMOL/L (3.6-5.0); SODIUM 143 MMOL/L (135-145)
[2021-10-18 01:53] LABS: CALCIUM 8.8 MG/DL (8.5-10.1)
[2021-10-18 01:54] LABS: GLUCOSE 112 MG/DL (70-105)
[2021-10-18 01:55] LABS: TOTAL PROTEIN 6.1 GM/DL (6.4-8.2)
[2021-10-18 01:56] LABS: BILIRUBIN,TOTAL 0.2 MG/DL (0.1-1.0); CARBON DIOXIDE 23 MMOL/L (21-32)
[2021-10-18 01:58] LABS: ALKALINE PHOSPHATASE 48 U/L (40-136); CREATININE SERUM 1.77 MG/DL (0.60-1.30); GFR ESTIMATED 28
[2021-10-18 01:59] LABS: BUN/CREATININE RATIO 17
[2021-10-18 02:01] LABS: ALANINE AMINOTRANSFERASE 14 U/L (0-55); MAGNESIUM 1.8 MG/DL (1.6-2.4)
[2021-10-18] MEDS ORDERED: KETOROLAC 15 MG/ML VIAL IVP ONE (02:15)
[2021-10-18] MEDS ORDERED: ACETAMINOPHEN 500 MG TAB (TYLENOL) PO ONE (02:15)
[2021-10-18] MEDS ORDERED: LORazepam INJ 2 MG/ML (ATIVAN) VIAL IVP ONE (02:15)
[2021-10-18] MEDS ORDERED: KETOROLAC 30 MG/ML VIAL IVP ONE (02:30)
[2021-10-18 03:27] LABS: BILIRUBIN,URINE NEGATIVE (NEGATIVE); CLARITY,URINE CLEAR; COLOR,URINE YELLOW; GLUCOSE, URINE (UA) NEGATIVE (NEGATIVE); KETONES,URINE NEGATIVE (NEGATIVE); LEUKOCYTE ESTERASE ,URINE NEGATIVE (NEGATIVE); NITRITE,URINE NEGATIVE (NEGATIVE); PROTEIN,URINE 3+ (NEGATIVE)
[2021-10-18 03:34] LABS: BACTERIA,URINE TRACE /HPF; WBC,URINE 0-2 /HPF
[2021-10-18] MEDS ORDERED: ACETAMINOPHEN 500 MG TAB (TYLENOL) PO PRN (05:15)
[2021-10-18] MEDS ORDERED: LORazepam INJ 2 MG/ML (ATIVAN) VIAL IV PRN (05:15)
[2021-10-18 05:56] LABS: BASOPHILS # (AUTO) 0.1 10^3/uL (0.0-0.1); BASOPHILS % (AUTO) 1 % (0-10); EOSINOPHILS # (AUTO) 0.3 10^3/uL (0.0-0.3); EOSINOPHILS % (AUTO) 4 % (0-10); HEMATOCRIT 33 % (35-52); LYMPHOCYTES # (AUTO) 3.4 10^3/uL (1.0-4.0); LYMPHOCYTES % (AUTO) 47 % (12-44); MEAN CORPUSCULAR HEMOGLOBIN 32 pg (25-34); MEAN CORPUSCULAR HGB CONC 33 g/dL (32-36); MEAN CORPUSCULAR VOLUME 97 fL (80-99); MEAN PLATELET VOLUME 11.2 fL (9.0-12.2); MONOCYTES # (AUTO) 0.6 10^3/uL (0.0-1.0); MONOCYTES % (AUTO) 9 % (0-12); NEUTROPHILS # (AUTO) 2.7 10^3/uL (1.8-7.8); NEUTROPHILS % (AUTO) 38 % (42-75); PLATELET COUNT 180 10^3/uL (130-400); WHITE BLOOD COUNT 7.1 10^3/uL (4.3-11.0)
[2021-10-18 06:10] LABS: POTASSIUM 3.5 MMOL/L (3.6-5.0)
[2021-10-18 06:11] LABS: CALCIUM 8.9 MG/DL (8.5-10.1)
[2021-10-18 06:15] LABS: CREATININE SERUM 1.64 MG/DL (0.60-1.30)
--- NOTE | 2021-10-18 06:36 | ED Cardiac General ---
History of Present Illness General Chief Complaint: Cardiac/General Problems Stated Complaint: HTN Nursing Triage Note: PT ARRIVAL TO ER [facility] WITH COMPLAINT OF HYPERTENSION X WEEKS. PT STATES THAT SHE WAS TAKING HER BP BEFORE BED AND IT WAS HIGH ENOUGH HER MACHINE WOULDNT TAKE IT. PT STATES THAT SHE SAW HER PCP YESTERDAY, BUT NOTHING WAS DONE ABOUT HER BP. PT STATES THAT SHE HAS BEEN ON ALL THE BLOOD PRESSURE MEDS, BUT THEY MAKE HER HR TOO LOW. PT STATES THAT HER HR IS LOW TO BEGIN WITH. PT DENIES OTHER COMPLAINTS. Source: patient (SOMEWHAT LIMITED HISTORIAN. POOR MEMORY) History of Present Illness Date Seen by Provider: Oct 18, 2021 Time Seen by Provider: 00:55 Initial Comments PT ARRIVES VIA POV FROM HOME, WANTS WHEELCHAIR ON ARRIVAL C/O ELEVATED BLOOD PRESSURE STATES HER BLOOD PRESSURE WAS 211/90--STATES SHE TAKES HER BLOOD PRESSURE "ALL THE TIME" CURRENTLY TAKING CLONIDINE 0.[address] DELA CRUZ RECENTLY STOPPED HER AMLODIPINE DUE TO BRADYCARDIA PT HAS BEEN ON MULTIPLE MEDICATIONS AND PT HAS BEEN INTOLERANT OF MOST OF THEM DUE TO BRADYCARDIA OR ORTHOSTATIC HYPOTENSION PT HAS HAD MULTIPLE VISITS FOR THESE ISSUES. PT SAW DR. ARAUJO YESTERDAY FOR ROUTINE VISIT. PT DOES NOT KNOW WHAT HER BLOOD PRESSURE WAS AT THE OFFICE. NO CHANGES IN MEDICATIONS AT THAT TIME. PT DENIES CHEST PAIN, SHORTNESS OF BREATH, DIZZINESS, SWEATS, NAUSEA/VOMITING, PARESTHESIAS/MOTOR DEFICITS OR VISION CHANGES STATES SHE HAS A SLIGHT HEADACHE--THIS IS HER ONLY COMPLAINT/SYMPTOM HAS NOT TAKEN ANYTHING FOR HEADACHE. Allergies and Home Medications Allergies Coded Allergies: Milk Containing Products (Unverified Allergy, Unknown, 04/19/13) FROM UNCODED LIST codeine (Verified Allergy, Unknown, 10/11/20) erythromycin base (Unverified Allergy, Unknown, 08/29/06) metaxalone (Verified Allergy, Unknown, 10/11/20) Patient Home Medication List Home Medication List Reviewed: Yes Acetaminophen (Tylenol Arthritis) 650 Mg Tablet.er, 650 MG PO TID, (Reported) Entered as Reported by: VIRGEN TATUM on 08/06/21 1005 Amlodipine Besylate (Amlodipine Besylate) 5 Mg Tablet, 5 MG PO BID Prescribed by: YADIEL ARAUJO on 08/10/21 0833 Cholecalciferol (Vitamin D3) (Vitamin D3) 50 Mcg Tablet, 50 MCG PO DAILY, (Reported) Entered as Reported by: VIRGEN TATUM on 08/06/211004 Docusate Sodium (Docusate Sodium) 100 Mg Capsule, 100 MG PO BID, (Reported) Entered as Reported by: VIRGEN TATUM on 08/06/211004 Donepezil HCl (Donepezil HCl) 5 Mg Tablet, 5 MG PO HS Prescribed by: YADIEL ARAUJO on 08/10/21852 Loratadine (Loratadine) 10 Mg Tablet, 10 MG PO DAILY, (Reported) Entered as Reported by: VIRGEN TATUM on 08/06/211004 Pantoprazole Sodium (Pantoprazole Sodium) 40 Mg Tablet.dr, 40 MG PO BID Prescribed by: YADIEL ARAUJO on 08/10/21852 Paroxetine HCl (Paroxetine HCl) 10 Mg Tablet, 10 MG PO HS Prescribed by: YADIEL ARAUJO on 08/10/21852 Review of Systems Review of Systems Constitutional: no symptoms reported EENTM: No Symptoms Reported Respiratory: No Symptoms Reported Cardiovascular: See HPI; Denies Chest Pain, Denies Edema, Denies Irregular Heart Rate, Denies Lightheadedness, Denies Palpitations, Denies Syncope Gastrointestinal: No Symptoms Reported Genitourinary: No Symptoms Reported Musculoskeletal: no symptoms reported Skin: no symptoms reported Psychiatric/Neurological: See HPI, Headache; Denies Numbness, Denies Paresthesia, Denies Seizure, Denies Tingling, Denies Weakness Endocrine: No Symptoms Reported Hematologic/Lymphatic: No Symptoms Reported Past Hykaivp-Khjckq-Dnwmvm Hx Patient Social History Tobacco Use?: No Use of E-Cig and/or Vaping dev: No Substance use?: No Alcohol Use?: No Pt feels they are or have been: No Immunizations Up To Date Tetanus Booster (TDap): More than 5yrs PED Vaccines UTD: Yes Influenza Vaccine Up-to-Date: Yes; Up-to-Date First/Initial COVID19 Vaccinat: 2020 Second COVID19 Vaccination Bladimir: 2020 Third COVID19 Vaccination Date: 2020 Seasonal Allergies Seasonal Allergies: No Past Medical History Surgeries: Yes (BLADDER SLING 1996;R CATARACT 10/13/20;L CATARACT 11/03/20) Bladder Surgery, Eye Surgery, 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, Orthopedic, Tonsillectomy Respiratory: No Cardiac: Yes (ORTHOSTASIS; BRADYCARDIA) High Cholesterol, Hypertension Neurological: Yes Dementia, Stroke Reproductive Disorders: No Female 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, 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 Sexually Transmitted Disease: No HIV/AIDS: No Genitourinary: No Gastrointestinal: Yes Gastroesophageal Reflux, Chronic Constipation Musculoskeletal: Yes (FALLS, CHRONIC GENERALIZED PAIN ) Degenerate Disk Disease, Chronic Back Pain, Fractures Endocrine: Yes Hypothyroidsim HEENT: Yes Cataract Loss of Vision: Bilateral Hearing Impairment: Denies Cancer: No Psychosocial: Yes Anxiety Integumentary: No Blood Disorders: No Adverse Reaction/Blood Tranf: No Family Medical History Alzheimer's disease Arthritis Asthma Colon cancer Completed stroke Dementia Hypertension Myocardial infarction Visual disorder Cancer, Lung Disease, Other Conditions/Hx Physical Exam Vital Signs Vital Signs - First Documented 10/18/21 01:23 Temp 36.4 Pulse 55 Resp 20 B/P (MAP) 243/97 (145) Pulse Ox 97 O2 Delivery Room Air Capillary Refill : Less Than 3 Seconds Height, Weight, BMI Height: 5'5.00" Weight: 140lbs. 0.0oz. 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 II- XII Norm as Tested Skin: Normal Color, Warm/Dry Progress/Results/Core Measures Results/Orders Lab Results Laboratory Tests Test 10/18/21 01:40 Range/Units White Blood Count 6.6 4.3-11.0 10^3/uL Red Blood Count 3.46 L 3.80-5.11 10^6/uL Hemoglobin 11.1 L 11.5-16.0 g/dL Hematocrit 34 L 35-52 % Mean Corpuscular Volume 97 80-99 fL Mean Corpuscular Hemoglobin 32 25-34 pg Mean Corpuscular Hemoglobin Concent 33 32-36 g/dL Red Cell Distribution Width 12.0 10.0-14.5 % Platelet Count 182 130-400 10^3/uL Mean Platelet Volume 10.7 9.0-12.2 fL Immature Granulocyte % (Auto) 0 % Neutrophils (%) (Auto) 37 L 42-75 % Lymphocytes (%) (Auto) 48 H 12-44 % Monocytes (%) (Auto) 10 0-12 % Eosinophils (%) (Auto) 5 0-10 % Basophils (%) (Auto) 1 0-10 % Neutrophils # (Auto) 2.4 1.8-7.8 10^3/uL Lymphocytes # (Auto) 3.1 1.0-4.0 10^3/uL Monocytes # (Auto) 0.7 0.0-1.0 10^3/uL Eosinophils # (Auto) 0.3 0.0-0.3 10^3/uL Basophils # (Auto) 0.1 0.0-0.1 10^3/uL Immature Granulocyte # (Auto) 0.0 0.0-0.1 10^3/uL Sodium Level 143 135-145 MMOL/L Potassium Level 3.9 3.6-5.0 MMOL/L Chloride Level 105 98-107 MMOL/L Carbon Dioxide Level 23 21-32 MMOL/L Anion Gap 15 H 5-14 MMOL/L Blood Urea Nitrogen 30 H 7-18 MG/DL Creatinine 1.77 H 0.60-1.30 MG/DL Estimat Glomerular Filtration Rate 28 BUN/Creatinine Ratio 17 Glucose Level 112 H 70-105 MG/DL Calcium Level 8.8 8.5-10.1 MG/DL Corrected Calcium 9.2 8.5-10.1 MG/DL Magnesium Level 1.8 1.6-2.4 MG/DL Total Bilirubin 0.2 0.1-1.0 MG/DL Aspartate Amino Transf (AST/SGOT) 25 5-34 U/L Alanine Aminotransferase (ALT/SGPT) 14 0-55 U/L Alkaline Phosphatase 48 40-136 U/L Troponin I < 0.028 <0.028 NG/ML B-Type Natriuretic Peptide 188.3 H <100.0 PG/ML Total Protein 6.1 L 6.4-8.2 GM/DL Albumin 3.5 3.2-4.5 GM/DL My Orders Orders - SONIA CHONG DO Ed Iv/Invasive Line Start (10/18/21 01:12) Ekg Tracing (10/18/21 01:12) O2 (10/18/21 01:12) Monitor-Rhythm Ecg Trace Only (10/18/21 01:12) Bnp Nuria (10/18/21 01:12) Cbc With Automated Diff (10/18/21 01:12) Comprehensive Metabolic Panel (10/18/21 01:12) Magnesium (10/18/21 01:12) Troponin I [place] (10/18/21 01:12) Chest 1 View, Ap/Pa Only (10/18/21 01:12) Hydralazine Injection (Apresoline Inject (10/18/21 01:15) Medications Given in ED Current Medications Medications Dose Ordered Sig/Deborah Route Start Time Stop Time Status Last Admin Dose Admin Hydralazine HCl 10 mg ONCE ONCE IV 10/18/21 01:15 10/18/21 01:16 DC 10/18/21 01:43 10 MG Vital Signs/I&O 10/18/21 01:23 Temp 36.4 Pulse 55 Resp 20 B/P (MAP) 243/97 (145) Pulse Ox 97 O2 Delivery Room Air Blood Pressure Mean: 107 Progress Progress Note : Progress Note GIVEN HYDRALAZINE IV FOR ELEVATED BLOOD PRESSURE DURING ER STAY, PT DEVELOPED A MULTITUDE OF SOMATIC COMPLAINTS AND HER ANXIETY INCREASED--OFFERED TYLENOL WHICH SHE REFUSED, STATES "IT NEVER HELPS" REPOSITIONED PT MULTIPLE TIMES. GAVE TORADOL AND ATIVAN WITH IMPROVEMENT IN SYMPTOMS BP DOWN TO 174/70 AT TIME OF ADMIT. Initial ECG Impression Date: Oct 18, 2021 Initial ECG Impression Time: 01:23 Initial ECG Rate: 48 Initial ECG Rhythm: S.Edson Initial ECG Impression: Nonspecific Changes Diagnostic Imaging Comments CXR--NO ACUTE PROCESS, PENDING RADIOLOGIST REVIEW Reviewed: Reviewed by Me Departure Communication (Admissions) 0218--SPOKE WITH DR. ARAUJO, ACCEPTS PT FOR ADMIT. SHE WILL DISCUSS WITH DR. DELA CRUZ TOMORROW. Impression Primary Impression: Hypertensive urgency Additional Impressions: Anxiety Renal insufficiency Bradycardia Disposition: ADMITTED INPATIENT Condition: Stable Admissions Decision to Admit Reason: Admit from ER (General) Decision to Admit/Date: Oct 18, 2021 Time/Decision to Admit Time: 02:20 Departure-Patient Inst. Referrals: YADIEL ARAUJO DO (PCP/Family) Primary Care Physician SONIA CHONG DO Oct 18, 2021 06:36
[2021-10-18 06:41] LABS: EOSINOPHILS % (MANUAL) 4 %; LYMPHOCYTES % (MANUAL) 42 %; MONOCYTES % (MANUAL) 5 %; NEUTROPHILS % (MANUAL) 49 %; RBC MORPH NORMAL
--- NOTE | 2021-10-18 06:59 | Diagnostic Imaging Report ---
INDICATION: Chest pain COMPARISON: 05/22/2021 FINDINGS: Single view of the chest demonstrates chronic interstitial changes in the bases. The heart is slightly enlarged. There is no pneumothorax or effusion. Osseous structures stable. IMPRESSION: No acute cardiopulmonary findings. Dictated by: Dictated on workstation # [id number]
--- NOTE | 2021-10-18 07:31 | History & Physical ---
TUSHAR LAND 10/18/21 0731: History of Present Illness History of Present Illness Reason for visit/HPI CC: Hypertensive Urgency Pt is 81 yo female admitted to [facility] for hypertensive urgency (243/97 on admission). Pt has had issues with HTN in the past, and has been taken off of several antihypertensives for hypotension and bradycardia. She was recently taken off of amlodipine due to bradycardia. Her home blood pressure readings had been trending upward for at least 3 days, with a reading of 195/87 at 10:25pm on 10/15. The pt was given hydralazine for bp in the ER. CXR showed no acute cardiopulmonary findings. EKG showed sinus bradycardia, probable L atrial enlargement, RBBB. Pt also complained of chronic bilateral leg pain, for which she has a nerve stimulator. Her pain has increased recently. Currently, it is worse in her right leg. She is on Toradol for the pain, as well as ativan for anxiety/agitation. Her hydralazine has been continued since admission. Her latest recorded bp was 167/77. Pt reports intermittent chest pain yesterday, SOB, and headache. She denies fever, chills, abdominal pain, N/V. Date of Admission Oct 18, 2021 at 02:00 Date Seen by a Provider: Oct 18, 2021 Time Seen by a Provider: 07:20 I consulted on this patient on 10/18/21 07:30 Attending Physician Yadiel Hernandez DO Admitting Physician Yadiel Hernandez DO Consult Allergies and Home Medications Allergies Coded Allergies: Milk Containing Products (Unverified Allergy, Unknown, 04/19/13) FROM UNCODED LIST codeine (Verified Allergy, Unknown, 10/11/20) erythromycin base (Unverified Allergy, Unknown, 08/29/06) metaxalone (Verified Allergy, Unknown, 10/11/20) Patient Home Medication List Acetaminophen (Tylenol Arthritis) 650 Mg Tablet.er, 650 MG PO TID, (Reported) Entered as Reported by: VIRGEN TATUM on 08/06/21 1005 Amlodipine Besylate (Amlodipine Besylate) 5 Mg Tablet, 5 MG PO BID Prescribed by: YADIEL HERNANDEZ on 08/10/21 0850 Cholecalciferol (Vitamin D3) (Vitamin D3) 50 Mcg Tablet, 50 MCG PO DAILY, (Reported) Entered as Reported by: VIRGEN TATUM on 08/06/21 100 Docusate Sodium (Docusate Sodium) 100 Mg Capsule, 100 MG PO BID, (Reported) Entered as Reported by: VIRGEN TATUM on 08/06/21 100 Donepezil HCl (Donepezil HCl) 5 Mg Tablet, 5 MG PO HS Prescribed by: YADIEL HERNANDEZ on 08/10/21852 Loratadine (Loratadine) 10 Mg Tablet, 10 MG PO DAILY, (Reported) Entered as Reported by: VIRGEN TATUM on 08/06/211004 Pantoprazole Sodium (Pantoprazole Sodium) 40 Mg Tablet.dr, 40 MG PO BID Prescribed by: YADIEL HERNANDEZ on 08/10/21852 Paroxetine HCl (Paroxetine HCl) 10 Mg Tablet, 10 MG PO HS Prescribed by: YADIEL HERNANDEZ on 08/10/21852 Past Ahflodk-Mgppuv-Bpbzom Hx Patient Social History Tobacco Use?: No Use of E-Cig and/or Vaping dev: No Substance use?: No Alcohol Use?: No Pt feels they are or have been: No Immunizations Up To Date Date of Influenza Vaccine: Mar 30, 2021 First/Initial COVID19 Vaccinat: 2020 Second COVID19 Vaccination Bladimir: 2020 Tetanus Booster (TDap): Less Than 5 Years Hepatitis A: Yes Hepatitis B: Yes PED Vaccines UTD: Yes Date of Pneumonia Vaccine: Mar 30, 2008 Seasonal Allergies Seasonal Allergies: No Current Status status: No status: No Advance Directives: Yes Communicates: Verbally Primary Language: Telugu Preferred Spoken Language: Telugu Is interpretation needed?: No Sensory deficits: Vision impairment Implanted or Applied Medical D: Other Past Medical History Surgeries: Bladder Surgery, Eye Surgery, 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, Orthopedic, Tonsillectomy High Cholesterol, Hypertension 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, 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, 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 Sexually Transmitted Disease: No HIV/AIDS: No Gastroesophageal Reflux, Chronic Constipation Degenerate Disk Disease, Chronic Back Pain, Fractures Cataract Loss of Vision: Bilateral Hearing Impairment: Denies Anxiety Pruritis (bilateral arms for several months) Blood Disorders: No Adverse Reaction/Blood Tranf: No Family Medical History Alzheimer's disease Arthritis Asthma Colon cancer Completed stroke Dementia Hypertension Myocardial infarction Visual disorder Cancer, Lung Disease, Other Conditions/Hx Review of Systems Constitutional: No chills, No fever EENTM: No hearing loss, No vision loss (no new changes; chronic issues) Respiratory: No cough; short of breath Cardiovascular: chest pain (intermittent yesterday); No palpitations Gastrointestinal: No abdominal pain; constipation; No diarrhea, No nausea, No vomiting Genitourinary: No decreased output, No dysuria Musculoskeletal: No neck pain; other (chronic bilateral leg pain; R worse currently) Skin: No lesions; pruritus (bilateral arms for several months) Psychiatric/Neurological: Anxiety, Depressed, Headache (central forehead; intermit.) Physical Exam Vital Signs Vital Signs - First Documented 10/18/21 01:23 Temp 36.4 Pulse 55 Resp 20 B/P (MAP) 243/97 (145) Pulse Ox 97 O2 Delivery Room Air Capillary Refill : Less Than 3 Seconds Height, Weight, BMI Height: 5'5.00" Weight: 140lbs. 0.0oz. 63.432342kn; 24.50 BMI Method:Stated General Appearance: WD/WN, Anxious Respiratory: Lungs Clear, Normal Breath Sounds, No Accessory Muscle Use Cardiovascular: No Murmur, Bradycardia Gastrointestinal: Non Tender, Soft Extremity: Calf Tenderness; No Inflammation; Other (pain bilateral legs; tender) Neurologic/Psychiatric: Depressed Affect, Disoriented (slow to respond; s earching for words) Skin: Normal Color, Warm/Dry Assessment/Plan Assessment and Plan Hypertensive Urgency (currently 167/77) Bradycardia Bilateral leg pain Hx of TIA Anxiety/Depression Consult cardiology Restart clonidine and amlodipine for bp management Dr. Hernandez spoke with pt regarding possible pacemaker Acetominophen for pain management Discontinue hydralazine, ativan, and toradol Monitor labs and vitals Low sodium diet YADIEL HERNANDEZ DO 10/18/21 1210: Allergies and Home Medications Allergies Coded Allergies: Milk Containing Products (Unverified Allergy, Unknown, 04/19/13) FROM UNCODED LIST codeine (Verified Allergy, Unknown, 10/11/20) erythromycin base (Unverified Allergy, Unknown, 08/29/06) metaxalone (Verified Allergy, Unknown, 10/11/20) Patient Home Medication List Home Medication List Reviewed: Yes Acetaminophen (Tylenol Arthritis) 650 Mg Tablet.er, 650 MG PO TID, (Reported) Entered as Reported by: VIRGEN TATUM on 08/06/211004 Amlodipine Besylate (Amlodipine Besylate) 5 Mg Tablet, 5 MG PO BID Prescribed by: YADIEL HERNANDEZ on 08/10/21852 Cholecalciferol (Vitamin D3) (Vitamin D3) 50 Mcg Tablet, 50 MCG PO DAILY, (Reported) Entered as Reported by: VIRGEN TATUM on 08/06/211004 Docusate Sodium (Docusate Sodium) 100 Mg Capsule, 100 MG PO BID, (Reported) Entered as Reported by: VIRGEN TATUM on 08/06/211004 Donepezil HCl (Donepezil HCl) 5 Mg Tablet, 5 MG PO HS Prescribed by: YADIEL HERNANDEZ on 08/10/21852 Loratadine (Loratadine) 10 Mg Tablet, 10 MG PO DAILY, (Reported) Entered as Reported by: VIRGEN TATUM on 08/06/211004 Pantoprazole Sodium (Pantoprazole Sodium) 40 Mg Tablet.dr, 40 MG PO BID Prescribed by: YADIEL HERNANDEZ on 08/10/21852 Paroxetine HCl (Paroxetine HCl) 10 Mg Tablet, 10 MG PO HS Prescribed by: YADIEL HERNANDEZ on 08/10/21852 Past Gjkqfto-Sccccb-Jazwqd Hx Family Medical History Alzheimer's disease Arthritis Asthma Colon cancer Completed stroke Dementia Hypertension Myocardial infarction Visual disorder Assessment/Plan Admission Diagnosis Admission Status: Inpatient Order (span 2 midnights) Reason for Inpatient Admission: Will need at least 2 days to adjust meds and possible pacemaker Supervisory-Addendum Brief Verification & Attestation Participated in pt care: history Personally performed: exam, supervision of care Care discussed with: Medical Student Procedures: n/a Results interpretation: Verified all documentation Patient seen and evaluated. Pain a little better this morning. Resting in bed. Discussed with Dr. Quinn and he will consult. Combination of clonidine and amlodopine have worked the best to control patient's labile hypertension but due to sinus node dysfunction having bradycardia with these medications so may need to consider pacemaker placement. Will hydrate and repeat BUN/CR in AM. DC toradol due to renal insufficiency and start routine tylenol for pain. Change hydralazine to catapres patch with low dose amlodopine. Hydralazine has not controlled patient's BP in past. TUSHAR LAND Oct 18, 2021 07:31 YADIEL HERNANDEZ DO Oct 18, 2021 12:10
[2021-10-18] MEDS: CATHETER FLUSH 10 ML SYR IVP SCH ×3 (07:46→20:55)
[2021-10-18] MEDS ORDERED: cloNIDine 0.1 MG PATCH (CATAPRES TTS) TDSY TD SCH (09:00)
[2021-10-18] MEDS: amLODIPine 2.5MG (NORVASC) TAB PO SCH ×2 (09:24→20:55)
[2021-10-18] MEDS: PANTOPRAZOLE 40 MG (PROTONIX) TAB PO SCH (09:24)
[2021-10-18] MEDS: LACTATED RINGERS 1,000 ML IV SCH ×2 (09:25→18:58)
[2021-10-18] MEDS: ACETAMINOPHEN 325 MG TABLET PO PRN ×2 (12:17→20:58)
[2021-10-18] MEDS: hydrALAZINE (APESOLINE) 20 MG/ML VIAL IV PRN ×2 (12:18→18:10)
--- NOTE | 2021-10-18 12:25 | Consultation-Cardiology ---
HPI-Cardiology Cardiology Consultation Date of Consultation 10/18/21 Date of Admission Time Seen by Provider: 12:20 Indication: Hypertension HPI 81-year-old lady with history of labile hypertension, difficult to control, she was seen in my office late in August 2021 and she has been reporting fatigue and tiredness and bradycardia, I stopped amlodipine and continue with clonidine. Patient came in for hypertensive emergency, had elevated blood pressure, feeling tired, having no energy. No chest pain. Home Medications & Allergies Allergies: Coded Allergies: Milk Containing Products (Unverified Allergy, Unknown, 04/19/13) FROM UNCODED LIST codeine (Verified Allergy, Unknown, 10/11/20) erythromycin base (Unverified Allergy, Unknown, 08/29/06) metaxalone (Verified Allergy, Unknown, 10/11/20) Home Medication List Reviewed: Yes [id number] Hx Patient Social History Marital Status: Recent Hopitalizations: No Have you traveled recently?: No Alcohol Use?: No Immunizations Up To Date Tetanus Booster (TDap): More than 5yrs Date of Pneumonia Vaccine: Mar 30, 2008 Date of Influenza Vaccine: Mar 30, 2021 Past Medical History Discussed below Family Medical History Significant Family History: Cancer, Lung Disease, Other Conditions/Hx Family History: Alzheimer's disease Arthritis Asthma Colon cancer Completed stroke Dementia Hypertension Myocardial infarction Visual disorder Review of Systems-General Review of Systems Constitutional: No chills, No fever; malaise, weakness EENTM: see HPI; No hearing loss, No vision loss (no new changes; chronic issues) Respiratory: see HPI; No cough; dyspnea on exertion; No hemoptysis, No orthopnea, No phlegm; short of breath; No stridor, No wheezing, No other Cardiovascular: chest pain (intermittent yesterday); No palpitations Gastrointestinal: see HPI; No abdominal pain; constipation; No diarrhea, No nausea, No vomiting Genitourinary: see HPI; No decreased output, No dysuria Musculoskeletal: see HPI; No neck pain; other (chronic bilateral leg pain; R worse currently) Skin: see HPI; No lesions; pruritus (bilateral arms for several months) Psychiatric/Neurological: Anxiety, Depressed, Headache (central forehead; intermit.) Reviewed Test Results Reviewed Test Results Lab Laboratory Tests Test 10/18/21 01:40 10/18/21 03:22 10/18/21 05:19 Range/Units White Blood Count 6.6 7.1 4.3-11.0 10^3/uL Red Blood Count 3.46 L 3.43 L 3.80-5.11 10^6/uL Hemoglobin 11.1 L 11.0 L 11.5-16.0 g/dL Hematocrit 34 L 33 L 35-52 % Mean Corpuscular Volume 97 97 80-99 fL Mean Corpuscular Hemoglobin 32 32 25-34 pg Mean Corpuscular Hemoglobin Concent 33 33 32-36 g/dL Red Cell Distribution Width 12.0 12.1 10.0-14.5 % Platelet Count 182 180 130-400 10^3/uL Mean Platelet Volume 10.7 11.2 9.0-12.2 fL Immature Granulocyte % (Auto) 0 0 % Neutrophils (%) (Auto) 37 L 38 L 42-75 % Lymphocytes (%) (Auto) 48 H 47 H 12-44 % Monocytes (%) (Auto) 10 9 0-12 % Eosinophils (%) (Auto) 5 4 0-10 % Basophils (%) (Auto) 1 1 0-10 % Neutrophils # (Auto) 2.4 2.7 1.8-7.8 10^3/uL Lymphocytes # (Auto) 3.1 3.4 1.0-4.0 10^3/uL Monocytes # (Auto) 0.7 0.6 0.0-1.0 10^3/uL Eosinophils # (Auto) 0.3 0.3 0.0-0.3 10^3/uL Basophils # (Auto) 0.1 0.1 0.0-0.1 10^3/uL Immature Granulocyte # (Auto) 0.0 0.0 0.0-0.1 10^3/uL Sodium Level 143 142 135-145 MMOL/L Potassium Level 3.9 3.5 L 3.6-5.0 MMOL/L Chloride Level 105 107 98-107 MMOL/L Carbon Dioxide Level 23 22 21-32 MMOL/L Anion Gap 15 H 13 5-14 MMOL/L Blood Urea Nitrogen 30 H 30 H 7-18 MG/DL Creatinine 1.77 H 1.64 H 0.60-1.30 MG/DL Estimat Glomerular Filtration Rate 28 31 BUN/Creatinine Ratio 17 18 Glucose Level 112 H 101 70-105 MG/DL Calcium Level 8.8 8.9 8.5-10.1 MG/DL Corrected Calcium 9.2 8.5-10.1 MG/DL Magnesium Level 1.8 1.6-2.4 MG/DL Total Bilirubin 0.2 0.1-1.0 MG/DL Aspartate Amino Transf (AST/SGOT) 25 5-34 U/L Alanine Aminotransferase (ALT/SGPT) 14 0-55 U/L Alkaline Phosphatase 48 40-136 U/L Troponin I < 0.028 <0.028 NG/ML B-Type Natriuretic Peptide 188.3 H <100.0 PG/ML Total Protein 6.1 L 6.4-8.2 GM/DL Albumin 3.5 3.2-4.5 GM/DL Urine Color YELLOW Urine Clarity CLEAR Urine pH 6.0 5-9 Urine Specific [place] 1.020 1.016-1.022 Urine Protein 3+ H NEGATIVE Urine Glucose (UA) NEGATIVE NEGATIVE Urine Ketones NEGATIVE NEGATIVE Urine Nitrite NEGATIVE NEGATIVE Urine Bilirubin NEGATIVE NEGATIVE Urine Urobilinogen 0.2 < = 1.0 MG/DL Urine Leukocyte Esterase NEGATIVE NEGATIVE Urine RBC (Auto) NEGATIVE NEGATIVE Urine RBC NONE /HPF Urine WBC 0-2 /HPF Urine Squamous Epithelial Cells 2-5 /HPF Urine Crystals NONE /LPF Urine Bacteria TRACE /HPF Urine Casts NONE /LPF Urine Mucus SMALL H /LPF Urine Culture Indicated NO Neutrophils % (Manual) 49 % Lymphocytes % (Manual) 42 % Monocytes % (Manual) 5 % Eosinophils % (Manual) 4 % Blood Morphology Comment NORMAL Physical Exam Physical Exam Vital Signs Vital Signs - First Documented 10/18/21 01:23 Temp 36.4 Pulse 55 Resp 20 B/P (MAP) 243/97 (145) Pulse Ox 97 O2 Delivery Room Air Capillary Refill : Less Than 3 Seconds Height, Weight, BMI Height: 5'5.00" Weight: 140lbs. 0.0oz. [id number]; 24.50 BMI Method:Stated General Appearance: WD/WN, Anxious Eyes: Bilateral Eye Normal Inspection, Bilateral Eye PERRL, Bilateral Eye EOMI HEENT: Normal ENT Inspection Neck: Normal Inspection; No Carotid Bruit, No JVD Respiratory: Lungs Clear, Normal Breath Sounds, No Accessory Muscle Use Cardiovascular: No Murmur, Bradycardia, Gallop/S3 Gastrointestinal: Non Tender, Soft Back: Normal Inspection, No CVA Tenderness, No Vertebral Tenderness Extremity: Calf Tenderness; No Inflammation; Other (pain bilateral legs; tender) Neurologic/Psychiatric: Depressed Affect, Disoriented (slow to respond; se arching for words) Skin: Normal Color, Warm/Dry Lymphatic: No Adenopathy A/P-Cardiology Admission Diagnosis Hypertensive emergency Generalized weakness Syncope Sinus node dysfunction Assessment/Plan Hypertensive emergency, difficult to control, having history of labile hypertension. Patient had history of syncope with orthostatic hypotension. Underlying sinus bradycardia. Amlodipine was stopped on the last office visit, she reported that her heart rate stayed in the 50s but her blood pressure started to go up. I will restart amlodipine Maintained on clonidine and hydralazine as needed. Generalized fatigue and loss of energy. Dyspnea on exertion, underlying sinus bradycardia, heart rate in the 50s. Starting physical therapy. Orthostatic hypotension, multiple falls, underwent tilt table test on 03/14/2021 and was significantly positive for vasodepressive syncope. Better at this time Echocardiogram was done in February 2021 showing normal left ventricular size, ejection fraction 65 to 70%, grade 1 diastolic dysfunction, mild MR, PA pressure 30 mmHg Tilt table test done on 03/14/2021 was positive for vasodepressive syncope, had a baseline severe hypertension with blood pressure 188/90 and during syncopal episode her blood pressure was 69/40. Heart rate continued to be between 80-100 Sinus node dysfunction with sinus bradycardia, complaining of fatigue and loss of energy, no syncope. I stopped amlodipine on September 25, 2021, patient continued to have a heart rate in the low 150s. I am restarting amlodipine due to hypertensive emergency History of mild carotid stenosis, last ultrasound was done in February 2021. continue to monitor Chronic back pain, using a wheelchair History of anxiety, maintained on Xanax as needed, managed by Dr. Hernandez History of tonsillectomy, hysterectomy, laminectomy, lumbar fusion. DIANE DELA CRUZ MD Oct 18, 2021 12:25
--- NOTE | 2021-10-18 14:23 | Occupational Therapy Eval ---
OT Evaluation-General/PLF Medical Diagnosis Admission Date Oct 18, 2021 at 02:00 Medical Diagnosis: Hypertensive Urgency Onset Date: Oct 18, 2021 Therapy Diagnosis Therapy Diagnosis: impaired endurance, balance, adls Height/Weight Height (Feet): 5 Height (Inches): 5.00 Weight (Pounds): 140 Weight (Ounces): 0.0 Precautions Precautions/Isolations: Fall Prevention, Standard Precautions Referral Physician: [place] Referral Reason: Evaluation/Treatment Medical History Pertinent Medical History: HTN, Hypothroidism, Renal Insufficiency Additional Medical History bradycardia Current History Pt arrives to ER with hypertensive urgency (243/97) and with c/o chronic bilateral leg pain. Per patient, she lives alone in a single story home. She has a caregiver for ~3 hours every morning that assists with cleaning, laundry, and management of the home. She verbalizes that she has a bath aid 1-2x/week. She receives meals on wheels (4 meals/week) and her sister will provide extra meals. Pt able to complete simple meal prep such as soup or sandwiches. She reports owning a walker but was not using prior to admission. Pt states she was indep with dressing, toileting, and eating. Reviewed History: Yes Social History Home: Single Level Current Living Status: Alone ADL-Prior Level of Function SCALE: Activities may be completed with or without assistive devices. 4-Fqhfnlcbrm-hmijyeg completes the activity by him/herself with no assistance from a helper. 5-Set-up or Clean-up Assistance-helper sets up or cleans up; patient completes activity. [place] assists only prior to or following the activity. 4-Supervision or Touching Assistance-helper provides verbal cues and/or jan bryan/steadying and/or contact guard assistance as patient completes activity. Assistance may be provided throughout the activity or intermittently. 3-Partial/Moderate Assistance-helper does LESS THAN HALF the effort. [place] lifts, holds or supports trunk or limbs, but provides less than half the effort. 2-Substantial/Maximal Assistance-helper does MORE THAN HALF the effort. [place] lifts or holds trunk or limbs and provides more than half the effort. 9-Iwwbqxqrl-sjhjyn does ALL the effort. Patient does none of the effort to complete the activity. Or, the assistance of 2 or more helpers is required for the patient to complete the activity. If activity was not attempted, code reason: 7-Patient Refused. 9-Not Applicable-not attempted and the patient did not perform the activity before the current illness, exacerbation or injury. 10-Not Attempted due to Environmental Limitations-(lack of equipment, weather restraints, etc.). 88-Not Attempted due to Medical Conditions or Safety Concerns. Self Care: Needed Some Help Functional Cognition: Needed Some Help DME/Equipment: Bath Bench, Grab Bars, Tall Toilet, Tub/Shower Drive Self: No OT Current Status Subjective Pt reports 5/10 pain in bilateral legs. Pain appears to increase with weightbearing. RN notified. Appearance Pt returned to sitting in chair, all needs within reach. Mental Status/Objective Patient Orientation: Person, Place, Situation Attachments: IV, Telemetry Current Glasses/Contacts: Yes Hand Dominance: Right Upper Extremity ROM WNL Upper Extremity Strength 3+/5 throughout ADL-Treatment Eating (QC): 6 (per clinical judgment) Oral Hygiene (QC): 5 Lower Body Dressing (QC): 4 (CGA- per clinical judgment) On/Off Footwear (QC): 4 Pt sitting in chair at OT arrival. BP: 164/84. HR: 54 bpm, 98% O2. She was Able to don/doff bilateral socks with use of cross over method. Anticipate no difficulty donning LB clothing over feet or reaching feet to wash. She stood with SBA, mild unsteadiness with standing needing CGA for safety. Pt able to take 6-7 steps forward and back with hand held assist. She could benefit from use of walker. Pt likely needing CGA for clothing management at this time. Post minimal activity, she c/o lightheadedness and increased pain in BLE's. HR in 70's. Once returning to sitting she reports lightheadedness subsided but LE pain continues. RN notified at end of session. Education OT Patient Education: Correct positioning, Energy conservation, Modified ADL techniques, Purpose of tx/functional activities, Safety issues, Transfer techniques Teaching Recipient: Patient Teaching Methods: Demonstration, Discussion Response to Teaching: Verbalize Understanding, Return Demonstration OT Half-Way Goals Plugger Worker Goals Time Frame: Oct 25, 2021 Oral Hygiene (QC): 6 Toileting Hygiene (QC): 6 Shower/Bathe Self (QC): 4 Upper Body Dressing (QC): 5 Lower Body Dressing (QC): 5 On/Off Footwear (QC): 6 1=Demonstrate adherence to instructed precautions during ADL tasks. 2=Patient will verbalize/demonstrate understanding of assistive devices/modifications for ADL. 3=Patient will improve strength/tolerance for activity to enable patient to perform ADL's. OT Education/Plan Problem List/Assessment Assessment: Decreased Activ Tolerance, Decreased UE Strength, Impaired Funct Balance, Impaired Self-Care Skills Discharge Recommendations Plan/Recommendations: Continue POC Therapy Discharge Recommendati: Home & Family Target Placement anticipate home with continued private duty pending progress Treatment Plan/Plan of Care Treatment,Training & Education: Yes Patient would benefit from OT for education, treatment and training to promote independence in ADL's, mobility, safety and/or upper extremity function for ADL's. Plan of Care: ADL Retraining, Functional Mobility, Group Exercise/Act as Ind, UE Funct Exercise/Act Treatment Duration: Oct 25, 2021 Frequency: 3 times per week (3-5x/week) Estimated Hrs Per Day: .25 hour per day Agreement: Yes Time/GCodes Start Time: 13:57 Stop Time: 14:14 Total Time Billed (hr/min): 17 Billed Treatment Time 1 visit Magda Rousseau OT Oct 18, 2021 14:23
--- NOTE | 2021-10-18 15:02 | Physical Therapy Evaluation ---
PT Evaluation-General Medical Diagnosis Admission Date Oct 18, 2021 at 02:00 Medical Diagnosis: Hypertensive Urgency Onset Date: Oct 18, 2021 Therapy Diagnosis Therapy Diagnosis: debility/weakness Height/Weight Height (Feet): 5 Height (Inches): 5.00 Weight (Pounds): 140 Weight (Ounces): 0.0 Precautions Precautions/Isolations: Fall Prevention, Standard Precautions Referral Physician: Cheyenne Reason for Referral: Evaluation/Treatment Medical History Pertinent Medical History: HTN, Hypothroidism, Renal Insufficiency Current History ER secondary to HTN Reviewed History: Yes Social History Home: Single Level Current Living Status: Alone Prior Prior Level of Function SCALE: Activities may be completed with or without assistive devices. 3-Ckxuycwbrb-vboenjn completes the activity by him/herself with no assistance from a helper. 5-Set-up or Clean-up Assistance-helper sets up or cleans up; patient completes activity. [place] assists only prior to or following the activity. 4-Supervision or Touching Assistance-helper provides verbal cues and/or touching/steadying and/or contact guard assistance as patient completes activity. Assistance may be provided throughout the activity or intermittently. 3-Partial/Moderate Assistance-helper does LESS THAN HALF the effort. [place] lifts, holds or supports trunk or limbs, but provides less than half the effort. 2-Substantial/Maximal Assistance-helper does MORE THAN HALF the effort. [place] lifts or holds trunk or limbs and provides more than half the effort. 1-Ehcmghjkk-phvoth does ALL the effort. Patient does none of the effort to complete the activity. Or, the assistance of 2 or more helpers is required for the patient to complete the activity. If activity was not attempted, code reason: 7-Patient Refused. 9-Not Applicable-not attempted and the patient did not perform the activity before the current illness, exacerbation or injury. 10-Not Attempted due to Environmental Limitations-(lack of equipment, weather restraints, etc.). 88-Not Attempted due to Medical Conditions or Safety Concerns. Bed Mobility: 6 Transfers (B,C,W/C): 6 Gait: 6 Stairs: 6 Indoor Mobility (Ambulation): Independent Stairs: Independent Prior Devices Use: Walker (PRN) PT Evaluation-Current Subjective Patient agrees to PT. Objective Patient Orientation: Normal For Age ROM/Strength ROM Lower Extremities bilateral LE WFL Strength Lower Extremities 4-/5 grossly bilateral LE Integumentary/Posture Bowel Incontinence: No Bladder Incontinence: No Posture WFL Neuromuscular (Tone, Coordination, Reflexes) grossly intact Sensory Vision: Wears Glasses Hearing: Functional Hand Dominance: Right Transfers Sit to Stand (QC): 4 Gait Mode of Locomotion: Walk Anticipated Mode of Locomotion: Walk Walk 10 feet (QC): 4 Walk 50 ft with 2 Turns(QC): 4 Walk 150 ft (QC): 4 Distance: 550' Gait Assistive Device: FWW Comments/Gait Description SBA for initial evaluation/safe and functional with no deviation Balance Sitting Static: Normal Sitting Dynamic: Normal Standing Static: Normal Standing Dynamic: Normal Assessment/Needs 81 y.o. female, will be seen short term by skilled PT to ensure safe return to home with displaying safe and functional mobility. Patient fatigues quickly with minimal activity, however, her strength and mobility are functional. Rehab Potential: Fair PT Group Home Goals Residential Appraiser Goals PT Group Home Goals Time Frame: Oct 27, 2021 Roll Left & Right (QC): 6 Sit to Lying (QC): 6 Lying-Sitting on Side/Bed(QC): 6 Sit to Stand (QC): 6 Chair/Tkg-rc-Eslmg Xfer(QC): 6 Toilet Transfer (QC): 6 Walk 10 feet (QC): 6 Walk 50ft with 2 Turns (QC): 6 Walk 150 ft (QC): 6 PT Plan Treatment/Plan Treatment Plan: Continue Plan of Care Treatment Plan: Education, Functional Activity [place], Functional Strength, Gait, Safety, Therapeutic Exercise, Transfers Treatment Duration: Oct 27, 2021 Frequency: 6 times per week Estimated Hrs Per Day: .25 hour per day Time/GCodes Time In: 1420 Time Out: 1436 Total Billed Treatment Time: 16 Total Billed Treatment 1 visit EVMod 16 min ANAID BOSE PT Oct 18, 2021 15:02
[2021-10-18] MEDS ORDERED: PANT40TA52 PO (15:08)
[2021-10-18] MEDS ORDERED: DONE5TAB30 PO (15:08)
[2021-10-18] MEDS ORDERED: CALC-250 PO (15:08)
[2021-10-18] MEDS ORDERED: PARO10TA3 PO (15:08)
[2021-10-18] MEDS ORDERED: CLN.1T PO (15:08)
[2021-10-18] MEDS: DONEPEZIL 5 MG (ARICEPT) TAB PO SCH (20:55)
[2021-10-18] MEDS: PARoxetine 10 MG (PAXIL) TAB PO SCH (20:55)
[2021-10-19] VITALS (7 sets, daily range): BP systolic 138–188; BP diastolic 60–99
[2021-10-19] MEDS: hydrALAZINE (APESOLINE) 20 MG/ML VIAL IV PRN ×3 (00:25→08:25)
[2021-10-19] MEDS ORDERED: meTOproloL SUCCINATE 50 MG (TOPROL XL) TAB PO ONE (02:00)
[2021-10-19 05:45] LABS: POTASSIUM 3.9 MMOL/L (3.6-5.0)
[2021-10-19 05:46] LABS: CALCIUM 8.7 MG/DL (8.5-10.1)
[2021-10-19] MEDS: LACTATED RINGERS 1,000 ML IV SCH ×2 (05:49→16:41)
[2021-10-19 05:50] LABS: CREATININE SERUM 1.55 MG/DL (0.60-1.30)
[2021-10-19] MEDS: CATHETER FLUSH 10 ML SYR IVP SCH ×3 (06:15→22:17)
[2021-10-19] MEDS: amLODIPine 2.5MG (NORVASC) TAB PO SCH ×2 (08:22→20:22)
[2021-10-19] MEDS: PANTOPRAZOLE 40 MG (PROTONIX) TAB PO SCH (08:22)
[2021-10-19] MEDS: VITAMIN D3 125 MCG (5,000 UNITS) CAPSULE PO SCH (08:22)
--- NOTE | 2021-10-19 08:30 | Progress Note ---
Subjective Subjective Date Seen by Provider: Oct 19, 2021 Time Seen by Provider: 08:30 F/u for pt experiencing hypertensive urgency. Pt not feeling well this morning. She has a right-sided headache and has developed shaking chills overnight. Her legs continue to hurt bilaterally. She experienced chest pain and bp of 188/83 last night after administration of prn hydralazine. Dr. Styles was called and she was given a dose of metoprolol XL 50mg. Her urine output was low yesterday at 250mL. She reports more output today due to fluid resuscitation. Pt has not had a bowel movement since admission. Review of Systems General: Chills, Malaise HEENT: Head Aches Pulmonary: Dyspnea; No Cough Cardiovascular: No: Chest Pain (not currently, did overnight), Palpitations Gastrointestinal: No: Nausea, Vomiting, Abdominal Pain Genitourinary: No Dysuria; Frequency Musculoskeletal: leg pain (bilateral), foot pain Neurological: No: Weakness, Change in speech Objective Exam Vital Signs Vital Signs Date Time Temp Pulse Resp B/P (MAP) Pulse Ox O2 Delivery O2 Flow Rate FiO2 10/19/21 08:21 51 169/88 (115) 10/19/21 08:00 36.8 57 16 186/99 (128) 97 Room Air 10/19/21 07:00 55 10/19/21 04:06 36.5 57 12 185/77 (113) 96 Room Air 10/19/21 01:40 88 185/69 (107) 10/19/21 01:00 64 10/19/21 00:32 36.9 59 14 188/83 (118) 96 Room Air 10/18/21 21:25 37.0 10/18/21 20:58 37.0 10/18/21 20:00 37.0 62 15 142/62 (88) 94 Room Air 10/18/21 19:50 96 Room Air 10/18/21 19:00 78 10/18/21 18:15 65 173/60 (97) 10/18/21 16:00 54 16 172/89 (116) 97 Room Air 10/18/21 15:18 36.2 56 17 182/77 (112) 96 Room Air 10/18/21 13:40 53 157/66 (96) 10/18/21 13:39 59 10/18/21 12:12 36.5 55 18 189/78 (115) 96 Room Air I & O 10/19/21 07:00 Intake Total 1700 ml Output Total 500 ml Balance 1200 ml General Appearance: WD/WN, Anxious Eyes: Bilateral Eye Normal Inspection, Bilateral Eye PERRL, Bilateral Eye EOMI Neck: No Carotid Bruit, No JVD Respiratory: Lungs Clear, Normal Breath Sounds, No Accessory Muscle Use Cardiovascular: Bradycardia, Gallop/S3 Gastrointestinal: Non Tender, Soft Extremity: Calf Tenderness; No Inflammation; Pedal Edema, Other (pain bilateral legs; tender) Neurologic/Psychiatric: Alert (more alert and quicker to respond today), Depressed Affect Skin: Normal Color, Warm/Dry Results Lab Laboratory Tests 10/19/21 04:58: Sodium Level 142, Potassium Level 3.9, Chloride Level 109H, Carbon Dioxide Level 21, Anion Gap 12, Blood Urea Nitrogen 26H, Creatinine 1.55H, Estimat Glomerular Filtration Rate 33, BUN/Creatinine Ratio 17, Glucose Level 95, Calcium Level 8.7 Assessment/Plan Assessment/Plan Admission Dx Hypertensive urgency, bradycardia, bilateral leg pain, hx of TIA, anxiety/depression, acute on chronic kidney dx Assessment and Plan Hypertensive Urgency (currently 169/88) Bradycardia Acute on Chronic Kidney Dx Bilateral leg pain Hx of TIA Anxiety/Depression Rigors Cardiology has been consulted Give dose 0.1mg clonidine; start clonidine 0.1mg BID (d/c patch) Continue amlodipine for bp management May need pacemaker Acetaminophen for pain management; small dose meloxicam, monitor kidney fxn Monitor labs and vitals Low sodium diet Admission Dx Hypertensive Urgency (currently 167/77) Bradycardia Bilateral leg pain Hx of TIA Anxiety/Depression Consult cardiology Restart clonidine and amlodipine for bp management Dr. Hernandez spoke with pt regarding possible pacemaker Acetominophen for pain management Discontinue hydralazine, ativan, and toradol Monitor labs and vitals Low sodium diet Clinical Quality Measures Admission Status Admission Dx Hypertensive Urgency (currently 167/77) Bradycardia Bilateral leg pain Hx of TIA Anxiety/Depression Consult cardiology Restart clonidine and amlodipine for bp management Dr. Hernandez spoke with pt regarding possible pacemaker Acetominophen for pain management Discontinue hydralazine, ativan, and toradol Monitor labs and vitals Low sodium diet Supervisory-Addendum Brief Verification & Attestation Participated in pt care: history Personally performed: exam, history, supervision of care Care discussed with: Medical Student Procedures: n/a Results interpretation: Verified all documentation Patient seen and evaluated. Sitting up in chair but very emotional. Shaking al l over and tearful. C/O WHYTE and pain extending all the way from her head to her back and legs. BP running high even with prn hydralazine. TUSHAR LAND Oct 19, 2021 08:30 YADIEL HERNANDEZ DO Oct 19, 2021 09:56
--- NOTE | 2021-10-19 09:43 | Physical Therapy Daily Note ---
PT Daily Note-Current Subjective Patient reluctantly agrees to PT. Mental Status Patient Orientation: Normal For Age Transfers SCALE: Activities may be completed with or without assistive devices. 3-Aahbzyishs-fnvgzra completes the activity by him/herself with no assistance from a helper. 5-Set-up or Clean-up Assistance-helper sets up or cleans up; patient completes activity. [place] assists only prior to or following the activity. 4-Supervision or Touching Assistance-helper provides verbal cues and/or touching/steadying and/or contact guard assistance as patient completes activity. Assistance may be provided throughout the activity or intermittently. 3-Partial/Moderate Assistance-helper does LESS THAN HALF the effort. [place] lifts, holds or supports trunk or limbs, but provides less than half the effort. 2-Substantial/Maximal Assistance-helper does MORE THAN HALF the effort. [place] lifts or holds trunk or limbs and provides more than half the effort. 2-Tefadqlid-htierh does ALL the effort. Patient does none of the effort to complete the activity. Or, the assistance of 2 or more helpers is required for the patient to complete the activity. If activity was not attempted, code reason: 7-Patient Refused. 9-Not Applicable-not attempted and the patient did not perform the activity before the current illness, exacerbation or injury. 10-Not Attempted due to Environmental Limitations-(lack of equipment, weather restraints, etc.). 88-Not Attempted due to Medical Conditions or Safety Concerns. Lying to Sitting/Side of Bed(Q: 6 Sit to Stand (QC): 6 Chair/Yqq-wj-Jlmpw Xfer(QC): 6 Gait Training Distance: 500' Walk 10 feet (QC): 5 Walk 50 ft with 2 Turns(QC): 5 Walk 150 ft (QC): 5 Gait Assistive Device: FWW safe and functional with no deviation Assessment Patient continues to have elevated BP and low HR, however, mobility is very functional. PT to continue to address functional mobility to ensure safe return to home. PT Nursing Home Goals Nursing Home Goals PT Taxi Servicer Goals Time Frame: Oct 27, 2021 Roll Left & Right (QC): 6 Sit to Lying (QC): 6 Lying-Sitting on Side/Bed(QC): 6 Sit to Stand (QC): 6 Chair/Srz-ro-Ghpqr Xfer(QC): 6 Toilet Transfer (QC): 6 Walk 10 feet (QC): 6 Walk 50ft with 2 Turns (QC): 6 Walk 150 ft (QC): 6 PT Plan Treatment/Plan Treatment Plan: Continue Plan of Care Treatment Plan: Education, Functional Activity Usman, Functional Strength, Gait, Safety, Therapeutic Exercise, Transfers Treatment Duration: Oct 27, 2021 Frequency: 6 times per week Estimated Hrs Per Day: .25 hour per day Time/GCodes Time In: 750 Time Out: 803 Total Billed Treatment Time: 13 Total Billed Treatment 1 visit FA 13 min ANAID BOSE PT Oct 19, 2021 09:43
[2021-10-19] MEDS ORDERED: cloNIDine 0.1 MG (CATAPRES) TAB PO ONE (09:45)
[2021-10-19] MEDS ORDERED: MELOXICAM 7.5 MG (MOBIC) TABLET PO ONE (10:00)
[2021-10-19] MEDS ORDERED: ALPRAZolam 0.25 MG (XANAX) TAB PO ONE (10:30)
--- NOTE | 2021-10-19 11:25 | Occupational Ther Daily Note ---
OT Current Status-Daily Note Subjective Pt reports not feeling well, c/o headache and BLE pain. RN aware. Appearance Pt returned to supine in bed, all needs within reach. Mental Status/Objective Patient Orientation: Person, Place, Situation Attachments: IV ADL-Treatment Therapy Code Descriptions/Definitions Functional [place] Measure: 0=Not Assessed/NA 4=Minimal Assistance 1=Total Assistance 5=Supervision or Setup 2=Maximal Assistance 6=Modified [place] 3=Moderate Assistance 7=Complete IndependenceSCALE: Activities may be completed with or without assistive devices. 6-Rephyxamrc-xrbwqdd completes the activity by him/herself with no assistance from a helper. 5-Set-up or Clean-up Assistance-helper sets up or cleans up; patient completes activity. [place] assists only prior to or following the activity. 4-Supervision or Touching Assistance-helper provides verbal cues and/or touching/steadying and/or contact guard assistance as patient completes activity. Assistance may be provided throughout the activity or intermittently. 3-Partial/Moderate Assistance-helper does LESS THAN HALF the effort. [place] lifts, holds or supports trunk or limbs, but provides less than half the effort. 2-Substantial/Maximal Assistance-helper does MORE THAN HALF the effort. [place] lifts or holds trunk or limbs and provides more than half the effort. 9-Megkjxiay-lgleyp does ALL the effort. Patient does none of the effort to co mplete the activity. Or, the assistance of 2 or more helpers is required for the patient to complete the activity. If activity was not attempted, code reason: 7-Patient Refused. 9-Not Applicable-not attempted and the patient did not perform the activity before the current illness, exacerbation or injury. 10-Not Attempted due to Environmental Limitations-(lack of equipment, weather restraints, etc.). 88-Not Attempted due to Medical Conditions or Safety Concerns. Eating (QC): 6 Oral Hygiene (QC): 6 On/Off Footwear: 6 Toilet Transfer (QC): 6 Supine<>sit: SBA. Sit<>stand: Indep. Pt ambulated to/from bathroom with supervision and use of walker. Exhibits Improved steadiness when using walker this date. She stood at sink for oral care and face washing, no LOB. Continues to have elevated BP and low HR. Pt appears to be back at baseline for adls. No further OT services warranted at this time. Education OT Patient Education: Energy conservation, Progress toward Goal/Update tx plan, Purpose of tx/functional activities Teaching Recipient: Patient Teaching Methods: Discussion Response to Teaching: Verbalize Understanding, Return Demonstration OT Residential Goals Residential Goals Time Frame: Oct 25, 2021 Oral Hygiene (QC): 6 Toileting Hygiene (QC): 6 Shower/Bathe Self (QC): 4 Upper Body Dressing (QC): 5 Lower Body Dressing (QC): 5 On/Off Footwear (QC): 6 1=Demonstrate adherence to instructed precautions during ADL tasks. 2=Patient will verbalize/demonstrate understanding of assistive devices/modifications for ADL. 3=Patient will improve strength/tolerance for activity to enable patient to perform ADL's. OT Education/Plan Problem List/Assessment Assessment: No Skilled OT Needs ID'd Discharge Recommendations Plan/Recommendations: Discontinue OT Therapy Discharge Recommendati: Scheduled Assistance, Bath Aide, Homemaker Support, Home & Family Target Placement Home with continued support from caregivers. Treatment Plan/Plan of Care Treatment,Training & Education: Yes Patient would benefit from OT for education, treatment and training to promote independence in ADL's, mobility, safety and/or upper extremity function for ADL's. Plan of Care: ADL Retraining, Functional Mobility, Group Exercise/Act as Ind, UE Funct Exercise/Act Treatment Duration: Oct 25, 2021 Frequency: 3 times per week (3-5x/week) Estimated Hrs Per Day: .25 hour per day Agreement: Yes Rehab Potential: Fair Time/GCodes Start Time: 10:48 Stop Time: 11:02 Total Time Billed (hr/min): 14 Billed Treatment Time 1, Magda Jackson OT Oct 19, 2021 11:25
--- NOTE | 2021-10-19 14:41 | Cardiology Progress Note ---
Subjective Date Seen by Provider: Oct 19, 2021 Time Seen by Provider: 14:39 Subjective/Events-last exam Patient is laying down in bed, feeling better. Reporting that she is feeling much better this afternoon. Review of Systems General: No Chills, No Night Sweats; Fatigue; No Malaise, No Appetite, No Other HEENT: No Head Aches, No Visual Changes, No Eye Pain, No Ear Pain, No Dysphasia, No Sinus Congestion, No Post Nasal Drip, No Sore Throat, No Other Pulmonary: No Dyspnea, No Cough, No Pleuritic Chest Pain, No Other Cardiovascular: No: Chest Pain, Palpitations, Orthopnea, Paroxysmal Noc. Dyspnea, Edema, Lt Headedness, Other Objective-Cardiology Exam Last Set of Vital Signs Vital Signs 10/19/21 10/19/21 08:00 13:29 Temp 36.8 Pulse 55 Resp 16 B/P (MAP) 138/60 (86) Pulse Ox 96 O2 Delivery Room Air I&O l Intake and Output 10/18/21 23:59 Intake Total 850 ml Output Total 250 ml Balance 600 ml Intake Oral 850 ml Output Urine Total 250 ml # Voids 2 Daily Weight Change No General: Alert, Oriented X3, Cooperative HEENT: Atraumatic, PERRLA Neck: Supple, No JVD, No Thyromegaly Lungs: Clear to Auscultation, Normal Air Movement Heart: Regular Rate, Normal S1, Normal S2, No Murmurs Abdomen: Normal Bowel Sounds, Soft, No Tenderness, No Hepatosplenomegaly, No Masses Extremities: No Clubbing, No Cyanosis, No Edema, Normal Pulses, No Tenderness/Swelling Skin: No Rashes, No Breakdown, No Significant Lesion Neuro: Normal Gait, Normal Speech, Strength at 5/5 X4 Ext, Normal Tone, Sensation Intact Psych/Mental Status: Mental Status NL, Mood NL Results Lab Laboratory Tests 10/19/21 04:58 A/P-Cardiology Admission Diagnosis Hypertensive emergency Generalized weakness Syncope Sinus node dysfunction Assessment/Plan Hypertensive urgency, difficult to control, having history of labile hypertension. Patient had history of syncope with orthostatic hypotension. Underlying sinus bradycardia. Amlodipine was stopped on the last office visit, she reported that her heart rate stayed in the 50s but her blood pressure started to go up. Amlodipine was restarted on October 18, 2021, blood pressure is better controlled Maintained on clonidine and hydralazine as needed. Generalized fatigue and loss of energy. Dyspnea on exertion, underlying sinus bradycardia, heart rate in the 50s. Starting physical therapy. Orthostatic hypotension, multiple falls, underwent tilt table test on 03/14/2021 and was significantly positive for vasodepressive syncope. Better at this time Echocardiogram was done in February 2021 showing normal left ventricular size, ejection fraction 65 to 70%, grade 1 diastolic dysfunction, mild MR, PA pressure 30 mmHg Tilt table test done on 03/14/2021 was positive for vasodepressive syncope, had a baseline severe hypertension with blood pressure 188/90 and during syncopal episode her blood pressure was 69/40. Heart rate continued to be between 80-100 Sinus node dysfunction with sinus bradycardia, complaining of fatigue and loss of energy, no syncope. I stopped amlodipine on September 25, 2021, patient continued to have a heart rate in the low 150s. Amlodipine was restarted, blood pressure is better controlled. Continue to mon itor heart rate History of mild carotid stenosis, last ultrasound was done in February 2021. continue to monitor Chronic back pain, using a wheelchair History of anxiety, maintained on Xanax as needed, managed by Dr. Hernandez History of tonsillectomy, hysterectomy, laminectomy, lumbar fusion. DIANE DELA CRUZ MD Oct 19, 2021 14:41
[2021-10-19] MEDS: cloNIDine 0.1 MG (CATAPRES) TAB PO SCH (20:21)
[2021-10-19] MEDS: PARoxetine 10 MG (PAXIL) TAB PO SCH (20:22)
[2021-10-19] MEDS: DONEPEZIL 5 MG (ARICEPT) TAB PO SCH (20:22)
[2021-10-20] MEDS: LACTATED RINGERS 1,000 ML IV SCH (05:29)
[2021-10-20] MEDS: CATHETER FLUSH 10 ML SYR IVP SCH ×3 (05:31→21:59)
[2021-10-20 05:42] LABS: POTASSIUM 4.2 MMOL/L (3.6-5.0)
[2021-10-20 05:43] LABS: CALCIUM 8.4 MG/DL (8.5-10.1)
[2021-10-20 05:47] LABS: CREATININE SERUM 1.59 MG/DL (0.60-1.30)
--- NOTE | 2021-10-20 08:36 | Physical Therapy Daily Note ---
PT Daily Note-Current Subjective Patient agrees to PT. Requests toilet use. Mental Status Patient Orientation: Normal For Age Transfers SCALE: Activities may be completed with or without assistive devices. 0-Wsaycermyj-oegsmey completes the activity by him/herself with no assistance from a helper. 5-Set-up or Clean-up Assistance-helper sets up or cleans up; patient completes activity. [place] assists only prior to or following the activity. 4-Supervision or Touching Assistance-helper provides verbal cues and/or touching/steadying and/or contact guard assistance as patient completes activity. Assistance may be provided throughout the activity or intermittently. 3-Partial/Moderate Assistance-helper does LESS THAN HALF the effort. [place] lifts, holds or supports trunk or limbs, but provides less than half the effort. 2-Substantial/Maximal Assistance-helper does MORE THAN HALF the effort. [place] lifts or holds trunk or limbs and provides more than half the effort. 1-Sqobmleay-cobsnb does ALL the effort. Patient does none of the effort to complete the activity. Or, the assistance of 2 or more helpers is required for the patient to complete the activity. If activity was not attempted, code reason: 7-Patient Refused. 9-Not Applicable-not attempted and the patient did not perform the activity before the current illness, exacerbation or injury. 10-Not Attempted due to Environmental Limitations-(lack of equipment, weather restraints, etc.). 88-Not Attempted due to Medical Conditions or Safety Concerns. Lying to Sitting/Side of Bed(Q: 6 Sit to Stand (QC): 6 Chair/Zjs-ke-Jpvek Xfer(QC): 6 Toilet Transfer (QC): 6 Gait Training Distance: 400' Walk 10 feet (QC): 5 Walk 50 ft with 2 Turns(QC): 5 Walk 150 ft (QC): 5 Gait Assistive Device: FWW fast pace/functional gait sequence Assessment Patient toileted self independently. Patient up in recliner with needs met. Continues to c/o being cold with warm blankets applied and hot tea in situ. PT Unix Manager Goals Care Home Goals PT [employer] Manager Goals Time Frame: Oct 27, 2021 Roll Left & Right (QC): 6 Sit to Lying (QC): 6 Lying-Sitting on Side/Bed(QC): 6 Sit to Stand (QC): 6 Chair/Nqc-yg-Xxnrr Xfer(QC): 6 Toilet Transfer (QC): 6 Walk 10 feet (QC): 6 Walk 50ft with 2 Turns (QC): 6 Walk 150 ft (QC): 6 PT Plan Treatment/Plan Treatment Plan: Continue Plan of Care Treatment Plan: Education, Functional Activity [place], Functional Strength, Gait, Safety, Therapeutic Exercise, Transfers Treatment Duration: Oct 27, 2021 Frequency: 6 times per week Estimated Hrs Per Day: .25 hour per day Time/GCodes Time In: 742 Time Out: 758 Total Billed Treatment Time: 16 Total Billed Treatment 1 visit FA 16 min ANAID BOSE PT Oct 20, 2021 08:36
[2021-10-20] MEDS: VITAMIN D3 125 MCG (5,000 UNITS) CAPSULE PO SCH (09:10)
[2021-10-20] MEDS: PANTOPRAZOLE 40 MG (PROTONIX) TAB PO SCH (09:10)
[2021-10-20] MEDS: cloNIDine 0.1 MG (CATAPRES) TAB PO SCH ×2 (09:10→21:18)
[2021-10-20] MEDS: amLODIPine 2.5MG (NORVASC) TAB PO SCH ×2 (09:10→21:18)
--- NOTE | 2021-10-20 09:30 | Progress Note ---
Subjective Subjective Date Seen by Provider: Oct 20, 2021 Time Seen by Provider: 11:28 F/u for pt admitted for hypertensive urgency. Pt feeling much better today. Her bp is currently 136/68 and her headache has dissipated. Her right leg is still painful. She had a regular bowel movement yesterday and is urinating without issue. Pt denies CP, SOB, fever and chills at this time. Review of Systems General: No Chills; Fatigue HEENT: No Head Aches, No Visual Changes Pulmonary: No Dyspnea, No Cough Cardiovascular: No: Chest Pain, Palpitations Gastrointestinal: No: Nausea, Vomiting, Abdominal Pain Genitourinary: No Dysuria; Frequency Musculoskeletal: leg pain (right leg today); No: neck pain Neurological: No: Change in speech, Confusion Objective Exam Vital Signs Vital Signs Date Time Temp Pulse Resp B/P (MAP) Pulse Ox O2 Delivery O2 Flow Rate FiO2 10/20/21 07:00 46 10/20/21 04:19 36.8 10/20/21 01:00 50 10/19/21 23:37 37.0 10/19/21 21:00 96 Room Air 10/19/21 19:00 61 10/19/21 18:36 36.7 10/19/21 16:43 53 16 153/63 (93) 96 Room Air 10/19/21 13:29 55 16 138/60 (86) 96 Room Air 10/19/21 12:54 52 I & O 10/20/21 07:00 Intake Total 1400 ml Output Total 700 ml Balance 700 ml General Appearance: No Apparent Distress, WD/WN Eyes: Bilateral Eye Normal Inspection, Bilateral Eye PERRL, Bilateral Eye EOMI Respiratory: Lungs Clear, Normal Breath Sounds, No Accessory Muscle Use Cardiovascular: Bradycardia, Gallop/S3 Gastrointestinal: Non Tender, Soft Extremity: No Pedal Edema, Calf Tenderness; No Inflammation Neurologic/Psychiatric: Alert, Oriented x3, Normal Mood/Affect Skin: Normal Color, Warm/Dry Results Lab Laboratory Tests 10/20/21 05:03: Sodium Level 141, Potassium Level 4.2, Chloride Level 108H, Carbon Dioxide Level 22, Anion Gap 11, Blood Urea Nitrogen 30H, Creatinine 1.59H, Estimat Glomerular Filtration Rate 32, BUN/Creatinine Ratio 19, Glucose Level 106H, Calcium Level 8.4L Assessment/Plan Assessment/Plan Admission Dx Hypertensive urgency, bradycardia, bilateral leg pain, hx of TIA, anxiety/depression, acute on chronic kidney dx Assessment and Plan Hypertensive Urgency (currently 136/68) Bradycardia Acute on Chronic Kidney Dx (Cr inc 1.59 from 1.55; BUN inc 30 from 26) Chronic leg pain Hx of TIA Anxiety/Depression- stable on paroxetine Cardiology has been consulted Continue amlodipine and clonidine for bp management Needs pacemaker Acetaminophen for pain management; small inc in Cr and BUN may be due to NSAID yesterday Monitor labs and vitals Low sodium diet Admission Dx Hypertensive urgency, bradycardia, bilateral leg pain, hx of TIA, anxiety/depression, acute on chronic kidney dx Clinical Quality Measures Admission Status Admission Dx Hypertensive urgency, bradycardia, bilateral leg pain, hx of TIA, anxiety/depression, acute on chronic kidney dx Supervisory-Addendum Brief Verification & Attestation Participated in pt care: history, physical Personally performed: exam, history, supervision of care Care discussed with: Medical Student Procedures: n/a Results interpretation: Verified all documentation Patient seen and evaluated. Feels much better today. No further tremors, WHYTE resolved, affect much brighter and BP much improved but is more bradycardic. Still complains of bilateral leg pain--Right greater than Left. Will repeat low dose meloxicam, change tylenol to routine dosing and use tramadol prn. Discussed that will need pacemaker since this regimen of clonidine and amlodopine is what has controlled her BP but is causing bradycardia due to her sinus node dysfunction. TUSHAR LAND Oct 20, 2021 09:30 YADIEL ARAUJO DO Oct 20, 2021 11:31
--- NOTE | 2021-10-20 10:04 | Progress Note - Cardiology ---
Cardiology SOAP Progress Note Subjective: No cp or palp or syncope or shortness of breath Chronic, bilateral leg pain that does not prevent walking No focal weakness No n/v/d Objective: I&O/Vital Signs 10/19/21 10/20/21 10/20/21 10/20/21 23:37 01:00 04:19 07:00 Temp 37.0 36.8 Pulse 50 46 10/20/21 09:00 Pulse Ox 96 O2 Delivery Room Air 10/20/21 00:00 Intake Total 1400 ml Output Total 600 ml Balance 800 ml Weight (Pounds): 140 Weight (Ounces): 0.0 Weight (Calculated Kilograms): [id number] Constitutional: AAO x 3, well-developed, well-nourished Respiratory: No accessory muscle use; other (bood, bilat air entry) Cardiovascular: regular rate-rhythm, systolic murmur (soft MAXIMO at card base) Gastrointestional: No tender; soft; No guarding, No rebound; audible bowel sounds Extremities: No clubbing, No cyanosis, No significant edema Neurologic/Psychiatric: oriented x 3, other (moves all limbs equally) Skin: No rash, No ulcerations Results/Procedures: Labs Laboratory Tests 10/20/21 05:03: Sodium Level 141, Potassium Level 4.2, Chloride Level 108H, Carbon Dioxide Level 22, Anion Gap 11, Blood Urea Nitrogen 30H, Creatinine 1.59H, Estimat Glomerular Filtration Rate 32, BUN/Creatinine Ratio 19, Glucose Level 106H, Calcium Level 8.4L Laboratory Tests 10/19/21 04:58 10/20/21 05:03 A/P: Assessment: Hypertensive urgency - hypertension is now controlled after resumption of therapy with amlodipine that had been discontinued shortly prior to her presenting with uncontrolled hy pertension Mild sinus node dysfunction - chronic, asymptomatic, sinus bradycardia (normal sinus rhythm with heart rate in the 40 - 50 range) Chronic, bilat leg and back discomfort, and some gen malaise - stable, unchanged H/o orthostatic hypotension - tilt table test on 03/14/2021: positive for vasodepressive syncope, currently stable - Echo in Feb 2021: showing normal left ventricular size, ejection fraction 65 to 70%, grade 1 diastolic dysfunction, mild MR, PA pressure 30 mmHg Carotid stenosis - mild, on u/s of Feb 2021, monitored by Dr Quinn Chronic back pain, using a wheelchair Chronic anxiety - managed by Dr. Hernandez History of tonsillectomy, hysterectomy, laminectomy, lumbar fusion. Plan: I interviewed and examined her, and reviewed her records BP appears quite well controlled Sinus jeannie is chronic and aysmptomatic She is on clonidine that can result in some bradycardia, but she has been on it chronically and it seems to have been keeping good bp control w/o causing symptomatic jeannie. We have, therefore, not stopped it Ok for d/c from cardiac standpoint Advised close outpt f/u with Wilda Hernandez and JAMILA Lancaster MD FACP FAC CCDS Oct 20, 2021 10:04
[2021-10-20] MEDS ORDERED: ASPIRIN E.C. 81 MG (ECOTRIN) TAB PO NR (10:15)
[2021-10-20] MEDS ORDERED: MELOXICAM 7.5 MG (MOBIC) TABLET PO NR (11:30)
[2021-10-20 13:34] VITALS: BP 143/65
[2021-10-20] MEDS: ACETAMINOPHEN 325 MG TABLET PO SCH ×2 (15:31→21:19)
[2021-10-20 15:32] VITALS: BP 170/78
[2021-10-20] MEDS: hydrALAZINE (APESOLINE) 20 MG/ML VIAL IV PRN ×2 (16:57→21:18)
[2021-10-20 19:33] VITALS: BP 182/68
[2021-10-20] MEDS: DONEPEZIL 5 MG (ARICEPT) TAB PO SCH (21:18)
[2021-10-20] MEDS: PARoxetine 10 MG (PAXIL) TAB PO SCH (21:18)
[2021-10-20 22:45] VITALS: BP 170/78
[2021-10-20] MEDS ORDERED: amLODIPine 2.5MG (NORVASC) TAB PO ONE (23:00)
[2021-10-20] MEDS ORDERED: ALPRAZolam 0.25 MG (XANAX) TAB PO ONE (23:00)
[2021-10-21] VITALS (7 sets, daily range): BP systolic 140–173; BP diastolic 56–71
[2021-10-21] MEDS: LACTATED RINGERS 1,000 ML IV SCH ×3 (03:19→23:12)
[2021-10-21 05:28] LABS: POTASSIUM 4.1 MMOL/L (3.6-5.0)
[2021-10-21 05:29] LABS: CALCIUM 8.3 MG/DL (8.5-10.1)
[2021-10-21 05:34] LABS: CREATININE SERUM 1.55 MG/DL (0.60-1.30)
[2021-10-21] MEDS: CATHETER FLUSH 10 ML SYR IVP SCH ×3 (06:11→22:09)
[2021-10-21] MEDS: ACETAMINOPHEN 325 MG TABLET PO SCH ×3 (06:16→21:29)
[2021-10-21] MEDS: VITAMIN D3 125 MCG (5,000 UNITS) CAPSULE PO SCH (08:07)
[2021-10-21] MEDS: PANTOPRAZOLE 40 MG (PROTONIX) TAB PO SCH (08:07)
[2021-10-21] MEDS: amLODIPine 2.5MG (NORVASC) TAB PO SCH (08:07)
[2021-10-21] MEDS: cloNIDine 0.1 MG (CATAPRES) TAB PO SCH ×2 (08:07→21:29)
--- NOTE | 2021-10-21 08:25 | Progress Note ---
Subjective Subjective Date Seen by Provider: Oct 21, 2021 Time Seen by Provider: 08:00 F/u for pt admitted for hypertensive urgency. Pt feeling worse today. Reports pain overnight where "everything hurt" and she could "feel her heart beating in her ears." She reports shaking chills and sweating overnight as well. Pt was given a one time dose of alprazolam and amlodipine. She continues to have a WHYTE and leg pain today. Her latest bp recording is 159/71 with a heart rate of 53. Pt's last bowel movement was the day before yesterday, she has not eaten and she is only drinking water when taking her pills. The pt denied CP this morning, but stated "everything hurt" last night. She is slightly SOB and jumps during palpation of her abdomen. She denies pain with it, stating it feels like she needs to urinate. Review of Systems General: Chills, Fatigue, Malaise HEENT: Head Aches; No Visual Changes Pulmonary: Dyspnea; No Cough Cardiovascular: No: Chest Pain, Palpitations Gastrointestinal: No: Nausea, Vomiting, Abdominal Pain Genitourinary: No Dysuria; Frequency Musculoskeletal: leg pain (bilateral); No: neck pain Neurological: No: Change in speech, Confusion Objective Exam Vital Signs Vital Signs Date Time Temp Pulse Resp B/P (MAP) Pulse Ox O2 Delivery O2 Flow Rate FiO2 10/21/21 07:34 36.5 53 16 159/71 (100) 94 Room Air 10/21/21 06:16 36.4 10/21/21 04:11 36.4 43 18 160/67 (98) 95 Room Air 10/21/21 01:00 51 10/21/21 00:00 36.7 58 18 166/60 (95) 96 Room Air 10/20/21 22:45 62 170/78 (108) 93 Room Air 10/20/21 21:50 35.9 10/20/21 19:33 35.9 60 20 182/68 (106) 95 Room Air 10/20/21 19:25 Room Air 10/20/21 19:00 60 10/20/21 15:32 35.6 50 18 170/78 (108) 96 Room Air 10/20/21 13:34 36.0 46 20 143/65 (91) 95 Room Air 10/20/21 12:59 43 10/20/21 09:00 96 Room Air I & O 10/21/21 07:00 Intake Total 1740 ml Balance 1740 ml General Appearance: WD/WN, Anxious Eyes: Bilateral Eye Normal Inspection, Bilateral Eye PERRL, Bilateral Eye EOMI Respiratory: Lungs Clear, Normal Breath Sounds, No Accessory Muscle Use Cardiovascular: Regular Rate, Rhythm, Gallop/S3 Gastrointestinal: Non Tender, Soft Extremity: Calf Tenderness; No Inflammation; Pedal Edema Neurologic/Psychiatric: Alert, Oriented x3, Depressed Affect Skin: Normal Color, Warm/Dry Results Lab Laboratory Tests 10/21/21 04:58: Sodium Level 141, Potassium Level 4.1, Chloride Level 107, Carbon Dioxide Level 21, Anion Gap 13, Blood Urea Nitrogen 29H, Creatinine 1.55H, Estimat Glomerular Filtration Rate 33, BUN/Creatinine Ratio 19, Glucose Level 109H, Calcium Level 8.3L Assessment/Plan Assessment/Plan Admission Dx Hypertensive urgency, bradycardia, bilateral leg pain, hx of TIA, anxiety/depression, acute on chronic kidney dx Assessment and Plan Hypertensive Urgency (159/71) Bradycardia Acute on Chronic Kidney Dx (Cr dec 1.55 from 1.59; BUN dec 29 from 30) Chronic leg pain Hx of TIA Anxiety/Depression Cardiology cleared for d/c Continue amlodipine and clonidine for bp management Needs pacemaker; outpt f/u with Dr. Quinn in 1-2 weeks Acetaminophen for pain management Needs thigh high Matt hose Monitor labs and vitals Low sodium diet Admission Dx Hypertensive urgency, bradycardia, bilateral leg pain, hx of TIA, anxiety/depression, acute on chronic kidney dx Clinical Quality Measures Admission Status Admission Dx Hypertensive urgency, bradycardia, bilateral leg pain, hx of TIA, anxiety/de pression, acute on chronic kidney dx Supervisory-Addendum Brief Verification & Attestation Participated in pt care: history, physical Personally performed: exam, history, supervision of care Care discussed with: Medical Student Procedures: n/a Patient seen and evaluated. Had rough evening last night due to elevated BP causing WHYTE and ears pounding then went into shakes. Alprazolam and extra dose of amlodopine helped. Will increase amlodopine back to 5mg po BID with clonidine 0.1mg po BID--get patient back to regimen she was on when her BP was best controlled and she felt the best. Up to chair today with thigh high MATT hose. TUSHAR LAND Oct 21, 2021 08:25 YADIEL ARAUJO DO Oct 21, 2021 10:44
[2021-10-21] MEDS ORDERED: amLODIPine 2.5MG (NORVASC) TAB PO NR (10:30)
--- NOTE | 2021-10-21 17:49 | Progress Note - Cardiology ---
Cardiology SOAP Progress Note Subjective: Gen aches and pains No cp or palp or syncope No n/v/d Gen weakness and malaise Objective: I&O/Vital Signs 10/21/21 10/21/21 10/21/21 10/21/21 06:16 07:00 07:34 09:00 Temp 36.4 36.5 Pulse 50 53 Resp 16 B/P (MAP) 159/71 (100) Pulse Ox 94 O2 Delivery Room Air Room Air 10/21/21 10/21/21 10/21/21 11:50 13:00 15:16 Temp 36.8 36.1 Pulse 50 48 45 Resp 18 18 B/P (MAP) 140/56 (84) 147/69 (95) Pulse Ox 96 95 O2 Delivery Room Air Room Air 10/21/21 00:00 Intake Total 640 ml Balance 640 ml Weight (Pounds): 140 Weight (Ounces): 0.0 Weight (Calculated Kilograms): [id number] Constitutional: AAO x 3, well-developed, well-nourished Respiratory: No accessory muscle use; other (bood, bilat air entry) Cardiovascular: regular rate-rhythm, systolic murmur (soft MAXIMO at card base) Gastrointestional: No tender; soft; No guarding, No rebound; audible bowel sounds Extremities: No clubbing, No cyanosis, No significant edema Neurologic/Psychiatric: oriented x 3, other (moves all limbs equally) Skin: No rash, No ulcerations Results/Procedures: Labs Laboratory Tests 10/21/21 04:58: Sodium Level 141, Potassium Level 4.1, Chloride Level 107, Carbon Dioxide Level 21, Anion Gap 13, Blood Urea Nitrogen 29H, Creatinine 1.55H, Estimat Glomerular Filtration Rate 33, BUN/Creatinine Ratio 19, Glucose Level 109H, Calcium Level 8.3L A/P: Assessment: Hypertensive urgency - hypertension is improving Mild sinus node dysfunction - chronic, asymptomatic, sinus bradycardia (normal sinus rhythm with heart rate in the 40 - 50 range) Chronic, bilat leg and back discomfort, and some gen malaise - stable, unchanged H/o orthostatic hypotension - tilt table test on 03/14/2021: positive for vasodepressive syncope, currently stable - Echo in Feb 2021: showing normal left ventricular size, ejection fraction 65 to 70%, grade 1 diastolic dysfunction, mild MR, PA pressure 30 mmHg Carotid stenosis - mild, on u/s of Feb 2021, monitored by Dr Quinn Chronic back pain, using a wheelchair Chronic anxiety - managed by Dr. Hernandez History of tonsillectomy, hysterectomy, laminectomy, lumbar fusion. Plan: BP was controlled yesterday morning and then became elevated yesterday evening. Now improved after further adjustment of therapy Sinus jeannie is chronic and aysmptomatic She is on clonidine that can result in some bradycardia, but she has been on it chronically and it seems to have been keeping good bp control w/o causing symptomatic jeannie. We have, therefore, not stopped it JAMILA WALKER MD FACP [facility] Oct 21, 2021 17:49
[2021-10-21] MEDS: DONEPEZIL 5 MG (ARICEPT) TAB PO SCH (21:29)
[2021-10-21] MEDS: PARoxetine 10 MG (PAXIL) TAB PO SCH (21:29)
[2021-10-21] MEDS: amLODIPine 5 MG (NORVASC) TAB PO SCH (21:29)
[2021-10-21] MEDS: ALPRAZolam 0.25 MG (XANAX) TAB PO PRN (21:30)
[2021-10-22] VITALS (10 sets, daily range): BP systolic 149–197; BP diastolic 63–80
[2021-10-22] MEDS: hydrALAZINE (APESOLINE) 20 MG/ML VIAL IV PRN ×3 (00:21→20:46)
[2021-10-22] MEDS: CATHETER FLUSH 10 ML SYR IVP SCH ×3 (05:57→20:47)
[2021-10-22] MEDS: ACETAMINOPHEN 325 MG TABLET PO SCH ×3 (06:03→20:45)
--- NOTE | 2021-10-22 07:08 | Progress Note ---
Subjective Subjective Date Seen by Provider: Oct 22, 2021 Time Seen by Provider: 08:37 F/u for pt admitted for hypertensive urgency. Pt improved from yesterday. Reports that her leg pain and shakiness is a little better. She still has a slight headache off and on. Her bp was 177/72 this morning despite anithypertens salvador. Pt denies CP, SOB, fever and abdominal pain. Is eating a low salt diet and drinking water. Last bowel movement was two days ago. Review of Systems General: Chills, Fatigue HEENT: Head Aches; No Visual Changes Pulmonary: No Dyspnea, No Cough Cardiovascular: No: Chest Pain, Palpitations Gastrointestinal: No: Nausea, Vomiting, Abdominal Pain Genitourinary: No Dysuria; Frequency Musculoskeletal: leg pain (bilateral); No: neck pain Neurological: No: Change in speech, Confusion Objective Exam Vital Signs Vital Signs Date Time Temp Pulse Resp B/P (MAP) Pulse Ox O2 Delivery O2 Flow Rate FiO2 10/22/21 06:03 36.0 10/22/21 04:33 36.0 55 17 177/72 (107) 94 Room Air 10/22/21 01:00 56 10/21/21 23:50 36.6 49 18 173/68 (103) 94 Room Air 10/21/21 21:59 36.0 10/21/21 21:29 36.0 10/21/21 20:24 36.0 49 18 146/64 (91) 94 Room Air 10/21/21 19:45 Room Air 10/21/21 19:00 50 10/21/21 15:16 36.1 45 18 147/69 (95) 95 Room Air 10/21/21 13:00 48 10/21/21 11:50 36.8 50 18 140/56 (84) 96 Room Air 10/21/21 09:00 Room Air 10/21/21 07:34 36.5 53 16 159/71 (100) 94 Room Air l I & O 10/22/21 07:00 Intake Total 2310 ml Balance 2310 ml General Appearance: No Apparent Distress, WD/WN Eyes: Bilateral Eye Normal Inspection, Bilateral Eye PERRL, Bilateral Eye EOMI Respiratory: Lungs Clear, Normal Breath Sounds, No Accessory Muscle Use Cardiovascular: Regular Rate, Rhythm, Gallop/S3 Gastrointestinal: Non Tender, Soft Extremity: Calf Tenderness; No Inflammation; Pedal Edema Neurologic/Psychiatric: Alert, Oriented x3, Normal Mood/Affect Skin: Normal Color, Warm/Dry Assessment/Plan Assessment/Plan Admission Dx Hypertensive urgency, bradycardia, bilateral leg pain, hx of TIA, anxiety/depression, acute on chronic kidney dx Assessment and Plan Hypertensive Urgency (177/72) Bradycardia Acute on Chronic Kidney Dx (Cr 1.55; BUN 29) Chronic leg pain Hx of TIA Anxiety/Depression Continue amlodipine and clonidine for bp management; hydralazine prn Needs pacemaker; f/u with Dr. Quinn today Acetaminophen for pain management Needs thigh high Christofer hose during the day Monitor labs and vitals Low sodium diet Admission Dx Hypertensive urgency, bradycardia, bilateral leg pain, hx of TIA, an xiety/depression, acute on chronic kidney dx Clinical Quality Measures Admission Status Admission Dx Hypertensive urgency, bradycardia, bilateral leg pain, hx of TIA, anxiety/depression, acute on chronic kidney dx Supervisory-Addendum Brief Verification & Attestation Participated in pt care: history, physical Personally performed: exam, history, supervision of care Care discussed with: Medical Student Procedures: n/a Results interpretation: Verified all documentation Patient seen and evaluated. Feeling better. States if she needs a pacemaker would like to just get it done now. Does complain of fatigue. HR high 40s. TUSHAR LAND Oct 22, 2021 07:08 YADIEL ARAUJO DO Oct 22, 2021 08:37
--- NOTE | 2021-10-22 09:21 | Physical Therapy Daily Note ---
PT Daily Note-Current Subjective Patient agrees to PT. Dr. Quinn in to assess patient and it is determined he will take her for a pacemaker on this date. Mental Status Patient Orientation: Person, Time, Situation Attachments: IV Transfers SCALE: Activities may be completed with or without assistive devices. 7-Kkinlijhpk-uvozfai completes the activity by him/herself with no assistance f rom a helper. 5-Set-up or Clean-up Assistance-helper sets up or cleans up; patient completes activity. [place] assists only prior to or following the activity. 4-Supervision or Touching Assistance-helper provides verbal cues and/or touching/steadying and/or contact guard assistance as patient completes activity. Assistance may be provided throughout the activity or intermittently. 3-Partial/Moderate Assistance-helper does LESS THAN HALF the effort. [place] lifts, holds or supports trunk or limbs, but provides less than half the effort. 2-Substantial/Maximal Assistance-helper does MORE THAN HALF the effort. [place] lifts or holds trunk or limbs and provides more than half the effort. 1-Bpbhrcugv-rpnqcw does ALL the effort. Patient does none of the effort to complete the activity. Or, the assistance of 2 or more helpers is required for the patient to complete the activity. If activity was not attempted, code reason: 7-Patient Refused. 9-Not Applicable-not attempted and the patient did not perform the activity before the current illness, exacerbation or injury. 10-Not Attempted due to Environmental Limitations-(lack of equipment, weather restraints, etc.). 88-Not Attempted due to Medical Conditions or Safety Concerns. Sit to Lying (QC): 6 Lying to Sitting/Side of Bed(Q: 6 Sit to Stand (QC): 4 Toilet Transfer (QC): 4 Gait Training Distance: 400' Walk 10 feet (QC): 4 Walk 50 ft with 2 Turns(QC): 4 Walk 150 ft (QC): 4 Gait Assistive Device: FWW fast pace with slight trunk flexed posture Assessment Patient toileted self independently then performed ADL's of washing hands and brushing teeth. Patient fatigues quickly with minimal activity. PT Mcfp Goals Satellite Manager Goals PT Satellite Manager Goals Time Frame: Oct 27, 2021 Roll Left & Right (QC): 6 Sit to Lying (QC): 6 Lying-Sitting on Side/Bed(QC): 6 Sit to Stand (QC): 6 Chair/Wax-dp-Ztpeq Xfer(QC): 6 Toilet Transfer (QC): 6 Walk 10 feet (QC): 6 Walk 50ft with 2 Turns (QC): 6 Walk 150 ft (QC): 6 PT Plan Treatment/Plan Treatment Plan: Continue Plan of Care Treatment Plan: Education, Functional Activity Usman, Functional Strength, Gait, Safety, Therapeutic Exercise, Transfers Treatment Duration: Oct 27, 2021 Frequency: 6 times per week Estimated Hrs Per Day: .25 hour per day Time/GCodes Time In: 901 Time Out: 912 Total Billed Treatment Time: 11 Total Billed Treatment 1 visit FA 11 min ANAID BOSE PT Oct 22, 2021 09:21
[2021-10-22] MEDS ORDERED: LIDOCAINE 1% INJ 20 ML VIAL ONE (09:29)
[2021-10-22] MEDS ORDERED: NS IV 1000 ML 0 ML ONE (09:29)
[2021-10-22] MEDS ORDERED: ceFAZolin INJECTION 1,000 MG ONE (09:29)
[2021-10-22] MEDS ORDERED: ceFAZolin INJECTION 1,000 MG VIAL IV ONE (09:30)
[2021-10-22] MEDS ORDERED: NS IV 1000 ML 1,000 ML ONE (09:30)
[2021-10-22] MEDS ORDERED: HEParin (CATH LAB) 1,000 ML IV ONE (09:30)
[2021-10-22] MEDS: NS IV 1000 ML 1,000 ML IV SCH ×3 (10:07→20:47)
[2021-10-22] MEDS ORDERED: fentaNYL INJ 100 MCG/2 ML AMP ONE ×2 (10:21→11:05)
[2021-10-22] MEDS ORDERED: MIDAZOLAM 5 MG/5 ML (VERSED) VIAL ONE ×2 (10:21→11:05)
[2021-10-22] MEDS: cloNIDine 0.1 MG (CATAPRES) TAB PO SCH ×3 (10:26→19:39)
[2021-10-22] MEDS: amLODIPine 5 MG (NORVASC) TAB PO SCH ×3 (10:26→19:39)
[2021-10-22] MEDS: PANTOPRAZOLE 40 MG (PROTONIX) TAB PO SCH ×2 (10:26→18:10)
[2021-10-22] MEDS: VITAMIN D3 125 MCG (5,000 UNITS) CAPSULE PO SCH ×2 (10:26→18:10)
[2021-10-22] MEDS: ASPIRIN E.C. 81 MG (ECOTRIN) TAB PO SCH ×2 (10:27→18:09)
--- NOTE | 2021-10-22 11:06 | Conscious Sedation/ASA ---
Conscious Sedation Pre-Proced Time 11:06 ASA Score 3 For ASA 3 and 4: Consider anesthesia and medical clearance. Also, for patients with a history of failed moderate sedation consider anesthesia. Airway Lungs Heart ASA score ASA 1: a normal healthy patient ASA 2: a patient with a mild systemic disease (mid diabetes, controlled hypertension, obesity x ASA 3: a patient with a severe systemic disease that limits activity (angina, COPD, prior Myocardial infarction) ASA 4: a patient with an incapacitating disease that is a constant threat to life (CHF, renal failure) ASA 5: a moribund patient not expected to survive 24 hrs. (ruptured aneurysm) ASA 6: a declared brain- patient whose organs are being harvested. For emergent operations, add the letter E after the classification Mallampati Classification Grade 3 Sedation Plan Analgesia, Amnesia, Plan communicated to team members, Discussed options with patient/fam, Discussed risks with patient/fam The patient is an appropriate candidate to undergo the planned procedure, sedation, and anesthesia. The patient immediately re-assessed prior to indication. DIANE DELA CRUZ MD Oct 22, 2021 11:06
[2021-10-22] MEDS ORDERED: NS IV 1000 ML 1,000 ML IV SCH (12:15)
[2021-10-22] MEDS ORDERED: PATIENT MAY USE OWN MEDS, ALL PO SCH (12:15)
--- NOTE | 2021-10-22 12:19 | Permanent Pacemaker Implant ---
Dual Chamber Pacemaker Implant PROCEDURE PHYSICIAN: Alessandro Dela Cruz DUAL CHAMBER PACEMAKER IMPLANTATION: DATE OF PROCEDURE: 10/22/21 REFERRING PHYSICIAN: Dr. Ambika Hernandez ATTENDING PHYSICIAN: Dr. Ambika Hernandez INDICATION: Sinus node dysfunction, severe bradycardia, symptomatic, syncope PREOPERATIVE DIAGNOSIS: Sinus node dysfunction POSTOPERATIVE DIAGNOSIS: Sinus node dysfunction HISTORY: Dual-chamber permanent pacemaker was recommended. PROCEDURE PERFORMED: 1. Dual-chamber permanent pacemaker implantation. 2. Fluoroscopy. 3. Central venous access. ANESTHESIA: Local anesthesia, conscious sedation. COMPLICATIONS: None. ESTIMATED BLOOD LOSS:20 mL. SPECIMENS: None. ORAL ANTICOAGULATION: None. FLUOROSCOPY TIME: FLUOROSCOPY DOSE: CONTRAST DOSE: PROCEDURE DETAILS: The patient is a 81 female and after all of the patients questions were answered, the patient was brought to the EP Lab. The patient's left chest was prepped and draped in sterile fashion. A 2 inch horizontal incision was made 1 cm below the clavicle and dissection carried down to the pectoralis fascia. Using the modified Seldinger technique and under fluoroscopy guidance, the anterior aspect of the left axillary vein was accessed 2 times. The J wires were secured to the drapes with a mosquito clamp. A 7-[place] sheath was introduced over one of the J-wires. The RV lead was then inserted. The RV lead was directed across the tricuspid valve to the apical septal portion of the right ventricle. The position was checked in ROMANSH and KAPLAN views. The screw was deployed and the lead connected to the software programmer. Close sensing and pacing thresholds were obtained. Diaphragmatic pacing was ruled out. The lead was secured with 2-0 silk ties to the underlying muscle and fascia. Next, a 7-[place] sheath was introduced through the remaining J-wire. An atrial lead was then introduced and guided to the level of the right appendage. The screw was deployed and the lead was connected to the interrogator. Good sensing and pacing thresholds were obtained. Diaphragmatic pacing was ruled out. The leads were secured with 2-0 silk ties to the underlying muscle and fascia. The leads were connected to the device in a hermetic fashion. The device and leads were placed in the pocket. Aggressive irrigation with saline solution was done. The device was secured to the underlying muscle and fascia with a 2-0 silk tie. interrogation of the device revealed good integrity of all the leads and good connections. The wound was then closed using 2 layers. The first layer was interrupted 2-0 absorbable Vicryl suture. The last layer was a single subcuticular layer with 4- 0 Vicryl suture. Half inch Steri-Strips and a small dressing were then applied to the wound. The patient tolerated the procedure well and was returned to the recovery room in stable condition with stable vital signs. DEVICE INFORMATION: RALF XT CODY [id number] RA LEAD: [id number] RV LEAD: [id number] PER-OPERATIVE DEVICE INTERROGATION: Good sensing and capture activity IMMEDIATE POSTOPERATIVE DEVICE INTERROGATION: Right atrium, P wave 1.8 mV, impedance 361, threshold 0.5 V at 0.4 ms Right ventricle, R waves 13.0 mV, impedance 627, pacing threshold 0.5 V at 0.4 ms PLAN: The patient transferred to the ICU. We will continue with two more doses of IV antibiotics. We will check a chest x-ray and interrogate the device in the morning. The patient will continue on oral antibiotics for 5 days. CONCLUSION: Successful dual-chamber pacemaker implantation with no complication ALESSANDRO DELA CRUZ MD Oct 22, 2021 12:18
--- NOTE | 2021-10-22 12:43 | Diagnostic Imaging Report ---
Indication: Pacemaker placement. Time of Exam: 12:37 PM Correlation is made with prior chest from 10/18/2021. Dual lead left-sided cardiac pacer is in place. Lead tips are in the region of the right atrium and right ventricle. Lungs are clear. Is no pneumothorax. Spinal stimulator overlies lower thoracic spine. Impression: Pacemaker placement. No complicating features are detected. Dictated by: Dictated on workstation # [id number]
[2021-10-22] MEDS: ceFAZolin INJECTION 1,000 MG in NS (IVPB) 50 ML IV SCH ×2 (14:07→20:46)
[2021-10-22] MEDS: ALPRAZolam 0.25 MG (XANAX) TAB PO PRN (20:45)
[2021-10-22] MEDS: DONEPEZIL 5 MG (ARICEPT) TAB PO SCH (20:45)
[2021-10-22] MEDS: PARoxetine 10 MG (PAXIL) TAB PO SCH (20:46)
[2021-10-23] VITALS (7 sets, daily range): BP systolic 108–179; BP diastolic 53–77
[2021-10-23] MEDS: hydrALAZINE (APESOLINE) 20 MG/ML VIAL IV PRN (04:27)
[2021-10-23] MEDS: CATHETER FLUSH 10 ML SYR IVP SCH ×3 (05:03→21:22)
[2021-10-23] MEDS ORDERED: HYDROcodone/APAP 5 MG/325 MG (LORTAB) TAB ONE (05:22)
[2021-10-23] MEDS: ceFAZolin INJECTION 1,000 MG in NS (IVPB) 50 ML IV SCH (05:25)
[2021-10-23] MEDS: ALPRAZolam 0.25 MG (XANAX) TAB PO PRN (05:25)
[2021-10-23] MEDS: ACETAMINOPHEN 325 MG TABLET PO SCH ×3 (05:25→21:21)
[2021-10-23] MEDS ORDERED: HYDROcodone/APAP 5 MG/325 MG (LORTAB) TAB PO ONE (05:30)
--- NOTE | 2021-10-23 07:06 | Progress Note ---
Subjective Subjective Date Seen by Provider: Oct 23, 2021 Time Seen by Provider: 08:39 F/u for pt admitted for hypertensive urgency. S/P pacemaker placement yesterday for sinus bradycardia. Pt reported 10/10 chest pain last night. She was given hydrocodone, but the pain continues this morning. She reports that it radiates between her shoulder blades and feels like there is a "knife in her back." Her leg pain and headache continue this morning as well. Her bp was elevated overnight due to medication schedule changes because of the procedure (meds held in the morning, given later). The highest recorded was 197/68. The pt reports that she feels like she could urinate, but does not want to get up due to the pain. She was encouraged to use the restroom as needed, to prevent further issues. Her last bowel movement was 3 days ago. The pt denies SOB, fever, and chills currently. Review of Systems General: No Chills; Fatigue, Malaise HEENT: Head Aches; No Visual Changes Pulmonary: No Dyspnea, No Cough Cardiovascular: Chest Pain (post-op at pacemaker site radiating to back); No: Palpitations Gastrointestinal: No: Nausea, Vomiting, Abdominal Pain Genitourinary: No Dysuria, No Frequency; Other (worried about going to the bathroom due to pain of getting out of bed) Musculoskeletal: leg pain (bilateral); No: neck pain Neurological: No: Change in speech, Confusion Objective Exam Vital Signs Vital Signs Date Time Temp Pulse Resp B/P (MAP) Pulse Ox O2 Delivery O2 Flow Rate FiO2 10/23/21 04:23 36.8 60 18 179/68 (105) 94 Room Air 10/23/21 01:26 60 10/23/21 00:11 36.3 61 20 153/63 (93) 95 Room Air 10/22/21 20:23 96 Room Air 10/22/21 19:30 35.4 62 20 171/67 (101) 94 Room Air 10/22/21 19:00 61 10/22/21 17:30 58 175/69 (104) 97 10/22/21 15:30 60 197/68 (111) 10/22/21 14:30 60 18 192/76 (114) 96 Room Air 10/22/21 14:03 61 18 186/80 (115) 92 Room Air 10/22/21 13:19 60 18 163/68 (99) 95 Room Air 10/22/21 13:03 60 18 175/71 (105) 95 Room Air 10/22/21 13:00 60 10/22/21 12:45 60 18 184/70 (108) 95 Room Air 10/22/21 09:00 96 Room Air 10/22/21 08:01 36.9 49 18 149/63 (91) 96 Room Air 10/22/21 07:46 47 I & O 10/23/21 06:59 Intake Total 2550 ml Output Total 1100 ml Balance 1450 ml General Appearance: WD/WN, Anxious Eyes: Bilateral Eye Normal Inspection, Bilateral Eye PERRL, Bilateral Eye EOMI Respiratory: Lungs Clear, Normal Breath Sounds, No Accessory Muscle Use Cardiovascular: Regular Rate, Rhythm Gastrointestinal: Non Tender, Soft Extremity: Calf Tenderness; No Inflammation; Other (Christofer hose left on overnight) Neurologic/Psychiatric: Alert, Oriented x3, Depressed Affect Skin: Normal Color, Warm/Dry Results Lab Laboratory Tests 10/22/21 09:15: SARS-CoV-2 RNA (RT-PCR) Not Detected 10/22/21 09:32: Prothrombin Time 14.0, INR Comment 1.0, Activated Partial Thromboplast Time 38H Microbiology 10/22/21 MRSA Screen - Final, Complete MRSA not isolated Assessment/Plan Assessment/Plan Admission Dx Hypertensive urgency, bradycardia, bilateral leg pain, hx of TIA, anxiety/depression, acute on chronic kidney dx Assessment and Plan Hypertensive Urgency (179/68) Bradycardia- resolved post-op; 60 Acute on Chronic Kidney Dx Chronic leg pain Hx of TIA Anxiety/Depression S/P pacemaker placement Continue clonidine, will be switching amlodipine to metoprolol Hydrocodone for pain management Needs thigh high Christofer hose during the day, remove at night Make sure she is using the restroom as needed Resume CBC, CMP post-op Monitor vitals Low sodium diet Admission Dx Hypertensive urgency, bradycardia, bilateral leg pain, hx of TIA, anxiety/depression, acute on chronic kidney dx Clinical Quality Measures Admission Status Admission Dx Hypertensive urgency, bradycardia, bilateral leg pain, hx of TIA, anxiety/depression, acute on chronic kidney dx Supervisory-Addendum Brief Verification & Attestation Participated in pt care: history, physical Personally performed: exam, history, supervision of care Care discussed with: Medical Student Procedures: n/a Procedure type: I&D Results interpretation: Verified all documentation Patient seen and evaluated. Tylenol, tramadol and hydrocodone, ice pack are not controlling shoulder pain. Will give low dose of meloxicam since Cr down to 1.39. Will increase tramadol dose to QID prn and add lidoderm patches to upper back/shoulder blade area. Will get SWING bed eval vs consider rehab as patient will be unable to go home and get around by herself until pacemaker site healed. Add MOM and senokot-S for bowels. TUSHAR LAND Oct 23, 2021 07:06 YADIEL ARAUJO DO Oct 23, 2021 08:42
[2021-10-23 07:54] LABS: HEMATOCRIT 34 % (35-52); HEMOGLOBIN 11.2 g/dL (11.5-16.0); MEAN CORPUSCULAR HEMOGLOBIN 33 pg (25-34); MEAN CORPUSCULAR HGB CONC 33 g/dL (32-36); MEAN CORPUSCULAR VOLUME 98 fL (80-99); MEAN PLATELET VOLUME 10.8 fL (9.0-12.2); PLATELET COUNT 163 10^3/uL (130-400); WHITE BLOOD COUNT 10.3 10^3/uL (4.3-11.0)
[2021-10-23 08:13] LABS: BILIRUBIN,TOTAL 0.4 MG/DL (0.1-1.0); CALCIUM 8.6 MG/DL (8.5-10.1); CREATININE SERUM 1.39 MG/DL (0.60-1.30); POTASSIUM 3.8 MMOL/L (3.6-5.0); TOTAL PROTEIN 5.5 GM/DL (6.4-8.2)
[2021-10-23] MEDS: cloNIDine 0.1 MG (CATAPRES) TAB PO SCH ×2 (08:18→21:22)
[2021-10-23] MEDS: PANTOPRAZOLE 40 MG (PROTONIX) TAB PO SCH (08:18)
[2021-10-23] MEDS: amLODIPine 5 MG (NORVASC) TAB PO SCH (08:18)
[2021-10-23] MEDS: VITAMIN D3 125 MCG (5,000 UNITS) CAPSULE PO SCH (08:18)
[2021-10-23] MEDS: meTOprolol SUCCINATE 100 MG (TOPROL XL) TAB PO SCH (08:18)
--- NOTE | 2021-10-23 08:41 | Cardiology Progress Note ---
Subjective Date Seen by Provider: Oct 23, 2021 Time Seen by Provider: 08:20 Subjective/Events-last exam Patient in bed, reports left shoulder blade pain. Denies any dyspnea or lightheadedness. Objective-Cardiology Exam Last Set of Vital Signs Vital Signs 10/23/21 10/23/21 10/23/21 08:29 11:58 13:00 Temp 36.9 Pulse 60 Resp 18 B/P (MAP) 108/53 (71) Pulse Ox 94 O2 Delivery Room Air O2 Flow Rate 0.00 I&O Intake and Output 10/23/21 00:00 Intake Total 3300 ml Output Total 1100 ml Balance 2200 ml Intake Oral 1750 ml IV Total 1550 ml Output Urine Total 1100 ml # Voids 3 General: Alert, Oriented X3, Cooperative HEENT: Atraumatic, PERRLA Neck: Supple, No JVD, No Thyromegaly Lungs: Clear to Auscultation, Normal Air Movement Heart: Regular Rate, Normal S1, Normal S2, No Murmurs Abdomen: Normal Bowel Sounds, Soft, No Tenderness, No Hepatosplenomegaly, No Masses Extremities: No Clubbing, No Cyanosis, No Edema, Normal Pulses, No Tenderness/Swelling Skin: No Rashes, No Breakdown, No Significant Lesion Neuro: Normal Gait, Normal Speech, Strength at 5/5 X4 Ext, Normal Tone, Sensation Intact Psych/Mental Status: Mental Status NL, Mood NL Results Lab Laboratory Tests 10/23/21 07:46 A/P-Cardiology Admission Diagnosis Hypertensive emergency Generalized weakness Syncope Sinus node dysfunction Assessment/Plan Hypertensive urgency, difficult to control, having history of labile hypertension. Patient had history of syncope with orthostatic hypotension. Amlodipine was stopped on the last office visit, she reported that her heart rate stayed in the 50s but her blood pressure started to go up. Amlodipine was restarted on October 18, 2021, blood pressure is better controlled Maintained on clonidine 0.1 BID, amlodipine 5mg BID, Toprol XL 100mg daily, and hydralazine as needed. Generalized fatigue and loss of energy. Dyspnea on exertion, underlying sinus bradycardia, heart rate in the 50s. s/p PPM implantation Orthostatic hypotension, multiple falls, underwent tilt table test on 03/14/2021 and was significantly positive for vasodepressive syncope. Better at this time Echocardiogram was done in February 2021 showing normal left ventricular size, ejection fraction 65 to 70%, grade 1 diastolic dysfunction, mild MR, PA pressure 30 mmHg Tilt table test done on 03/14/2021 was positive for vasodepressive syncope, had a baseline severe hypertension with blood pressure 188/90 and during syncopal episode her blood pressure was 69/40. Heart rate continued to be between 80-100 Sinus node dysfunction with sinus bradycardia, complaining of fatigue and loss of energy, no syncope. I stopped amlodipine on September 25, 2021, patient continued to have a heart rate in the low 50s. s/p PPM implantation on 10/22/21, [employer], site is C/D/I without erythema History of mild carotid stenosis, last ultrasound was done in February 2021. continue to monitor Chronic back pain, using a wheelchair History of anxiety, maintained on Xanax as needed, managed by Dr. Hernandez History of tonsillectomy, hysterectomy, laminectomy, lumbar fusion. Supervisory-Addendum Brief Supervisory Addendum Participated in pt care: history, MDM, physical Personally performed: exam, history, MDM Care discussed with: OPHELIA Results interpretation: Verified all documentation Notes: Patient was seen and evaluated with John, examination performed, management plan was discussed, agree with the current scribed note, I made few changes to the note using Italic font Patient was seen at bedside, complain of significant pain at the surgical site Continue with local pressure and pain medication Added Toprol-XL 100 mg daily, monitor blood pressure JOHN VALDES Oct 23, 2021 08:41 DIANE DELA CRUZ MD Oct 23, 2021 15:55
[2021-10-23] MEDS ORDERED: MILK OF MAGNESIA 400 MG/5 ML 30 ML UDC PO ONE (08:45)
[2021-10-23] MEDS ORDERED: MELOXICAM 7.5 MG (MOBIC) TABLET PO ONE (09:00)
[2021-10-23] MEDS: CEPHALEXIN 250 MG (KEFLEX) CAP PO SCH ×2 (09:31→21:22)
[2021-10-23] MEDS: LIDOCAINE 4% (SALONPAS) PATCH TOP SCH (09:31)
[2021-10-23] MEDS: SENNA W/DOCUSATE (SENOKOT S) TABLET PO SCH ×2 (09:31→21:22)
--- NOTE | 2021-10-23 09:47 | Physical Therapy Daily Note ---
PT Daily Note-Current Subjective Pt agrees to PT. Mental Status Patient Orientation: Normal For Age Attachments: IV Transfers SCALE: Activities may be completed with or without assistive devices. 1-Mxstenbmvf-oaoiwib completes the activity by him/herself with no assistance from a helper. 5-Set-up or Clean-up Assistance-helper sets up or cleans up; patient completes activity. Thermal assists only prior to or following the activity. 4-Supervision or Touching Assistance-helper provides verbal cues and/or touch ing/steadying and/or contact guard assistance as patient completes activity. Assistance may be provided throughout the activity or intermittently. 3-Partial/Moderate Assistance-helper does LESS THAN HALF the effort. Thermal lifts, holds or supports trunk or limbs, but provides less than half the effort. 2-Substantial/Maximal Assistance-helper does MORE THAN HALF the effort. Thermal lifts or holds trunk or limbs and provides more than half the effort. 0-Yrhnbakxx-ztluur does ALL the effort. Patient does none of the effort to complete the activity. Or, the assistance of 2 or more helpers is required for the patient to complete the activity. If activity was not attempted, code reason: 7-Patient Refused. 9-Not Applicable-not attempted and the patient did not perform the activity before the current illness, exacerbation or injury. 10-Not Attempted due to Environmental Limitations-(lack of equipment, weather restraints, etc.). 88-Not Attempted due to Medical Conditions or Safety Concerns. Roll Left & Right (QC): 4 Lying to Sitting/Side of Bed(Q: 4 Sit to Stand (QC): 4 Chair/Xdy-qk-Pzdju Xfer(QC): 4 Toilet Transfer (QC): 4 Gait Training Does the Patient Walk?: Yes Distance: 10' x 2 Walk 10 feet (QC): 4 Gait Assistive Device: FWW Assessment Current Status: Fair Progress Pt states she needs to use the BR then refuses to walk further in hallway and refuses further tx. Pt up in chair with all needs met and call light in hand. PT Plodder Operator Goals Plodder Operator Goals PT Retirement Goals Time Frame: Oct 27, 2021 Roll Left & Right (QC): 6 Sit to Lying (QC): 6 Lying-Sitting on Side/Bed(QC): 6 Sit to Stand (QC): 6 Chair/Gmc-an-Kxuyc Xfer(QC): 6 Toilet Transfer (QC): 6 Walk 10 feet (QC): 6 Walk 50ft with 2 Turns (QC): 6 Walk 150 ft (QC): 6 PT Plan Treatment/Plan Treatment Plan: Continue Plan of Care Treatment Plan: Education, Functional Activity Usman, Functional Strength, Gait, Safety, Therapeutic Exercise, Transfers Treatment Duration: Oct 27, 2021 Frequency: 6 times per week Estimated Hrs Per Day: .25 hour per day Time/GCodes Time In: 930 Time Out: 942 Total Billed Treatment Time: 12 Total Billed Treatment 1, FA (12 min) ANAID BOSE PT Oct 23, 2021 09:47
[2021-10-23] MEDS: NS IV 1000 ML 1,000 ML IV SCH (16:00)
[2021-10-23] MEDS: PARoxetine 10 MG (PAXIL) TAB PO SCH (21:21)
[2021-10-23] MEDS: DONEPEZIL 5 MG (ARICEPT) TAB PO SCH (21:21)
[2021-10-24] VITALS (8 sets, daily range): BP systolic 158–176; BP diastolic 66–74
[2021-10-24] MEDS: NS IV 1000 ML 1,000 ML IV SCH (04:31)
[2021-10-24] MEDS: CATHETER FLUSH 10 ML SYR IVP SCH ×3 (05:54→21:21)
[2021-10-24] MEDS: ACETAMINOPHEN 325 MG TABLET PO SCH ×3 (05:54→21:20)
[2021-10-24 06:05] LABS: HEMATOCRIT 30 % (35-52); MEAN CORPUSCULAR HEMOGLOBIN 33 pg (25-34); MEAN CORPUSCULAR HGB CONC 33 g/dL (32-36); MEAN CORPUSCULAR VOLUME 98 fL (80-99); MEAN PLATELET VOLUME 11.3 fL (9.0-12.2); PLATELET COUNT 133 10^3/uL (130-400); WHITE BLOOD COUNT 6.5 10^3/uL (4.3-11.0)
[2021-10-24 06:13] LABS: CALCIUM 8.1 MG/DL (8.5-10.1)
[2021-10-24 06:18] LABS: CREATININE SERUM 1.39 MG/DL (0.60-1.30)
--- NOTE | 2021-10-24 07:30 | Progress Note ---
Subjective Subjective Date Seen by Provider: Oct 24, 2021 Time Seen by Provider: 07:10 F/u for pt admitted for hypertensive urgency. S/P pacemaker placement for sinus bradycardia on 10/21. Pt feeling better today, with little pain in her legs or chest. She no longer hurts between her shoulder blades. Pt has been refusing to participate in therapy. It was explained to her that this is an important part of her healing process. She will be visited again today to see if she meets the criteria for a swing bed. Her O2 is running a little lower at about 93 on room air. She denies CP, SOB, palpitations, and fever. She continues to have chills. The pt has not had a bowel movement since 10/20. Review of Systems General: Chills, Fatigue HEENT: No Head Aches, No Visual Changes Pulmonary: No Dyspnea, No Cough Cardiovascular: Chest Pain (post-op pacemaker site is sore); No: Palpitations Gastrointestinal: No: Nausea, Vomiting, Abdominal Pain Genitourinary: No Dysuria; Frequency, Other (worried about going to the bathroom due to pain of getting out of bed) Musculoskeletal: leg pain (bilateral); No: neck pain Neurological: No: Change in speech, Confusion Objective Exam Vital Signs Vital Signs Date Time Temp Pulse Resp B/P (MAP) Pulse Ox O2 Delivery O2 Flow Rate FiO2 10/24/21 03:53 36.7 61 18 168/72 (104) 93 Room Air 10/24/21 01:00 60 10/23/21 23:58 36.8 60 18 153/68 (96) 92 Room Air 10/23/21 21:30 96 Room Air 10/23/21 20:00 37.2 60 16 145/65 (91) 94 Room Air 10/23/21 19:00 67 10/23/21 16:00 36.8 65 16 132/60 (84) 93 Room Air 10/23/21 13:00 60 10/23/21 11:58 36.9 60 18 108/53 (71) 94 Room Air 10/23/21 09:00 96 Room Air 10/23/21 08:29 Room Air 0.00 10/23/21 07:25 37.3 70 18 179/77 (111) 92 Room Air I & O 10/24/21 07:00 Intake Total 2450 ml Balance 2450 ml General Appearance: No Apparent Distress, WD/WN Eyes: Bilateral Eye Normal Inspection, Bilateral Eye PERRL, Bilateral Eye EOMI Respiratory: Lungs Clear, Normal Breath Sounds, No Accessory Muscle Use Cardiovascular: Regular Rate, Rhythm, Other (pacemaker incision site) Gastrointestinal: Non Tender, Soft Extremity: Calf Tenderness; No Inflammation; Other (Christofer bonilla left on overnight) Neurologic/Psychiatric: Alert, Oriented x3, Normal Mood/Affect Skin: Normal Color, Warm/Dry Results Lab Laboratory Tests 10/23/21 07:46: White Blood Count 10.3, Red Blood Count 3.43L, Hemoglobin 11.2L, Hematocrit 34L, Mean Corpuscular Volume 98, Mean Corpuscular Hemoglobin 33, Mean Corpuscular Hemoglobin Concent 33, Red Cell Distribution Width 12.4, Platelet Count 163, Mean Platelet Volume 10.8, Sodium Level 142, Potassium Level 3.8, Chloride Level 108H, Carbon Dioxide Level 21, Anion Gap 13, Blood Urea Nitrogen 21H, Creatinine 1.39H, Estimat Glomerular Filtration Rate 38, BUN/Creatinine Ratio 15, Glucose Level 86, Calcium Level 8.6, Corrected Calcium 9.4, Total Bilirubin 0.4, Aspartate Amino Transf (AST/SGOT) 29, Alanine Aminotransferase (ALT/SGPT) 17, Alkaline Phosphatase 43, Total Protein 5.5L, Albumin 3.0L 10/24/21 05:45: White Blood Count 6.5, Red Blood Count 3.06L, Hemoglobin 10.0L, Hematocrit 30L, Mean Corpuscular Volume 98, Mean Corpuscular Hemoglobin 33, Mean Corpuscular Hemoglobin Concent 33, Red Cell Distribution Width 12.1, Platelet Count 133, Mean Platelet Volume 11.3, Sodium Level 141, Potassium Level 4.0, Chloride Level 108H, Carbon Dioxide Level 22, Anion Gap 11, Blood Urea Nitrogen 23H, Creatinine 1.39H, Estimat Glomerular Filtration Rate 38, BUN/Creatinine Ratio 17, Glucose Level 97, Calcium Level 8.1L Microbiology 10/22/21 MRSA Screen - Final, Complete MRSA not isolated Assessment/Plan Assessment/Plan Admission Dx Hypertensive urgency, bradycardia, bilateral leg pain, hx of TIA, anxiety/depression, acute on chronic kidney dx Assessment and Plan Hypertensive Urgency (168/72) Bradycardia- resolved post-op; 61 Acute on Chronic Kidney Dx Chronic leg pain Hx of TIA Anxiety/Depression S/P pacemaker placement Continue clonidine and metoprolol for bp management Lidocaine patch and tramadol for pain magagement Needs thigh high Christofer hose during the day, remove at certified professional midwife vitals- O2 at 93, consider NC if continues to lower Encourage PT and OT participation Low sodium diet Admission Dx Hypertensive urgency, bradycardia, bilateral leg pain, hx of TIA, anxiety/depression, acute on chronic kidney dx Clinical Quality Measures Admission Status Admission Dx Hypertensive urgency, bradycardia, bilateral leg pain, hx of TIA, anxiety/depression, acute on chronic kidney dx Supervisory-Addendum Brief Verification & Attestation Participated in pt care: history, physical Personally performed: exam, history, supervision of care Care discussed with: Medical Student Procedures: n/a Results interpretation: Verified all documentation Patient seen and evaluated. Pain much better today and less fatigued. Willing to work with PT today. O2 sat in low 90s with crackles in right base so will DC IVFs, start IS and check CXR and up to chair and ambulate today. Extra MOM now and start miralax tonight due to ongoing constipation. TUSHAR LAND Oct 24, 2021 07:30 YADIEL ARAUJO DO Oct 24, 2021 08:32
[2021-10-24] MEDS: VITAMIN D3 125 MCG (5,000 UNITS) CAPSULE PO SCH (08:33)
[2021-10-24] MEDS: PANTOPRAZOLE 40 MG (PROTONIX) TAB PO SCH (08:33)
[2021-10-24] MEDS: SENNA W/DOCUSATE (SENOKOT S) TABLET PO SCH ×2 (08:33→20:10)
[2021-10-24] MEDS: cloNIDine 0.1 MG (CATAPRES) TAB PO SCH ×2 (08:33→20:10)
[2021-10-24] MEDS: meTOprolol SUCCINATE 100 MG (TOPROL XL) TAB PO SCH (08:33)
[2021-10-24] MEDS: LIDOCAINE 4% (SALONPAS) PATCH TOP SCH (08:34)
[2021-10-24] MEDS: CEPHALEXIN 250 MG (KEFLEX) CAP PO SCH ×2 (08:34→20:11)
[2021-10-24] MEDS ORDERED: MILK OF MAGNESIA 400 MG/5 ML 30 ML UDC PO ONE (08:45)
--- NOTE | 2021-10-24 08:52 | Cardiology Progress Note ---
Subjective Date Seen by Provider: Oct 24, 2021 Time Seen by Provider: 08:35 Subjective/Events-last exam Patient is sitting up in bed, states pain is significantly improved. Reports improvement of fatigue. Denies any c/o. Review of Systems General: No Chills, No Night Sweats, No Fatigue, No Malaise, No Appetite, No Other HEENT: No Head Aches, No Visual Changes, No Eye Pain, No Ear Pain, No Dysphasia, No Sinus Congestion, No Post Nasal Drip, No Sore Throat, No Other Pulmonary: No Dyspnea, No Cough, No Pleuritic Chest Pain, No Other Cardiovascular: No: Chest Pain, Palpitations, Orthopnea, Paroxysmal Noc. Dyspnea, Edema, Lt Headedness, Other Objective-Cardiology Exam Last Set of Vital Signs Vital Signs 10/23/21 10/24/21 10/24/21 08:29 07:27 08:30 Temp 36.5 Pulse 61 Resp 18 B/P (MAP) 164/69 (100) Pulse Ox 96 O2 Delivery Room Air O2 Flow Rate 0.00 I&O Intake and Output 10/24/21 00:00 Intake Total 2650 ml Balance 2650 ml Intake Oral 1650 ml IV Total 1000 ml # Voids 7 General: Alert, Oriented X3, Cooperative HEENT: Atraumatic, PERRLA Neck: Supple, No JVD, No Thyromegaly Lungs: Clear to Auscultation, Normal Air Movement Heart: Regular Rate, Normal S1, Normal S2, No Murmurs Abdomen: Normal Bowel Sounds, Soft, No Tenderness, No Hepatosplenomegaly, No Masses Extremities: No Clubbing, No Cyanosis, No Edema, Normal Pulses, No Tenderness/Swelling Skin: No Rashes, No Breakdown, No Significant Lesion Neuro: Normal Gait, Normal Speech, Strength at 5/5 X4 Ext, Normal Tone, Sensation Intact Psych/Mental Status: Mental Status NL, Mood NL Results Lab Laboratory Tests 10/24/21 05:45 A/P-Cardiology Admission Diagnosis Hypertensive emergency Generalized weakness Syncope Sinus node dysfunction Assessment/Plan Hypertensive urgency, difficult to control, having history of labile hypertension. Patient had history of syncope with orthostatic hypotension. Amlodipine was stopped on the last office visit, she reported that her heart rate stayed in the 50s but her blood pressure started to go up. Amlodipine was restarted on October 18, 2021, blood pressure is better controlled Maintained on clonidine 0.1 BID, amlodipine 5mg BID, Toprol XL 100mg daily, and hydralazine as needed. Blood pressure is better controlled, still having variability. I will continue monitoring and will consider increasing Toprol to 200 mg daily in the future Generalized fatigue and loss of energy. Dyspnea on exertion, underlying sinus bradycardia, heart rate in the 50s. s/p PPM implantation, reporting improvement in her symptoms. Orthostatic hypotension, multiple falls, underwent tilt table test on 03/14/2021 and was significantly positive for vasodepressive syncope. Better at this time Echocardiogram was done in February 2021 showing normal left ventricular size, ejection fraction 65 to 70%, grade 1 diastolic dysfunction, mild MR, PA pressure 30 mmHg Tilt table test done on 03/14/2021 was positive for vasodepressive syncope, had a baseline severe hypertension with blood pressure 188/90 and during syncopal episode her blood pressure was 69/40. Heart rate continued to be between 80-100 Sinus node dysfunction with sinus bradycardia, I stopped amlodipine on September 25, 2021, patient continued to have a heart rate in the low 50s. s/p PPM implantation on 10/22/21, MiNOWirelesstronic, site is C/D/I without erythema. Amlodipine was restarted, Toprol was added and she is tolerating them well. History of mild carotid stenosis, last ultrasound was done in February 2021. continue to monitor Chronic back pain, using a wheelchair History of anxiety, maintained on Xanax as needed, managed by Dr. Hernandez History of tonsillectomy, hysterectomy, laminectomy, lumbar fusion. Supervisory-Addendum Brief Supervisory Addendum Participated in pt care: history, MDM, physical Personally performed: exam, history, MDM Care discussed with: OPHELIA Results interpretation: Verified all documentation Notes: Patient was seen and evaluated with John, examination performed, management plan was discussed, agree with the current scribed note, I made few changes to the note using Italic font Patient was seen at bedside, sitting comfortably, feeling significantly better Pacemaker site is healing well Blood pressure is still elevated but significantly better than before, had an episode of systolic blood pressure 105 yesterday. Currently blood pressure around 160 systolic. Continue to monitor blood pressure and continue on current medication Okay for discharge and follow-up as an outpatient JOHN VALDES Oct 24, 2021 08:52 DIANE DELA CRUZ MD Oct 24, 2021 10:57
[2021-10-24] MEDS: ASPIRIN E.C. 81 MG (ECOTRIN) TAB PO SCH (09:20)
[2021-10-24] MEDS: hydrALAZINE (APESOLINE) 20 MG/ML VIAL IV PRN ×2 (12:13→23:30)
--- NOTE | 2021-10-24 12:17 | Diagnostic Imaging Report ---
INDICATION: Left base crackles EXAMINATION: 2 view chest 10/24/2021 COMPARISON: 10/22/2021 FINDINGS: There is bibasal atelectasis. There are no focal infiltrates or effusions. There is no pneumothorax. Left-sided pacemaker unremarkable. There is a stimulator device along the thoracic spine. The heart and pulmonary vasculature normal. IMPRESSION: 1. Bibasal atelectasis. Otherwise chronic changes as above. Dictated by: Dictated on workstation # [id number]
--- NOTE | 2021-10-24 15:23 | Physical Therapy Daily Note ---
PT Daily Note-Current Subjective Pt agrees to PT. Mental Status Patient Orientation: Normal For Age Transfers SCALE: Activities may be completed with or without assistive devices. 9-Smnsfomfko-edqodpt completes the activity by him/herself with no assistance from a helper. 5-Set-up or Clean-up Assistance-helper sets up or cleans up; patient completes activity. Monroe assists only prior to or following the activity. 4-Supervision or Touching Assistance-helper provides verbal cues and/or touching/steadying and/or contact guard assistance as patient completes activity. Assistance may be provided throughout the activity or intermittently. 3-Partial/Moderate Assistance-helper does LESS THAN HALF the effort. Monroe lifts, holds or supports trunk or limbs, but provides less than half the effort. 2-Substantial/Maximal Assistance-helper does MORE THAN HALF the effort. Monroe lifts or holds trunk or limbs and provides more than half the effort. 7-Tjdfxmmzn-ozuogx does ALL the effort. Patient does none of the effort to complete the activity. Or, the assistance of 2 or more helpers is required for the patient to complete the activity. If activity was not attempted, code reason: 7-Patient Refused. 9-Not Applicable-not attempted and the patient did not perform the activity before the current illness, exacerbation or injury. 10-Not Attempted due to Environmental Limitations-(lack of equipment, weather restraints, etc.). 88-Not Attempted due to Medical Conditions or Safety Concerns. Sit to Lying (QC): 4 Sit to Stand (QC): 4 Toilet Transfer (QC): 4 Weight Bearing Full Weight Bearing Full Weight Bearing Gait Training Does the Patient Walk?: Yes Distance: 300' Walk 10 feet (QC): 4 Walk 50 ft with 2 Turns(QC): 4 Walk 150 ft (QC): 4 Gait Persons Needed: 1 Gait Assistive Device: FWW slighty unsteady but self corrects Treatments Pt in chair upon arrival of PT. Pt amb. in hallway and returns to room to use the BR. Pt amb. to bed and lays supine with all needs met and call light in hand. Assessment Current Status: Good Progress Pt is walking longer distances today and doesn't complain of any pain during tx. PT Long-Term Goals Senior Bookkeeper Goals PT Long-Term Goals Time Frame: Oct 27, 2021 Roll Left & Right (QC): 6 Sit to Lying (QC): 6 Lying-Sitting on Side/Bed(QC): 6 Sit to Stand (QC): 6 Chair/Kxj-xq-Npize Xfer(QC): 6 Toilet Transfer (QC): 6 Walk 10 feet (QC): 6 Walk 50ft with 2 Turns (QC): 6 Walk 150 ft (QC): 6 PT Plan Treatment/Plan Treatment Plan: Continue Plan of Care Treatment Plan: Education, Functional Activity Usman, Functional Strength, Gait, Safety, Therapeutic Exercise, Transfers Treatment Duration: Oct 27, 2021 Frequency: 6 times per week Estimated Hrs Per Day: .25 hour per day Time/GCodes Time In: 1500 Time Out: 1517 Total Billed Treatment Time: 17 Total Billed Treatment 1, FA (17 min) SANKET GUIDO INTERNATIONAL SOURCING MANAGER Oct 24, 2021 15:23
[2021-10-24] MEDS: PARoxetine 10 MG (PAXIL) TAB PO SCH (20:09)
[2021-10-24] MEDS: DONEPEZIL 5 MG (ARICEPT) TAB PO SCH (20:10)
[2021-10-24] MEDS: amLODIPine 5 MG (NORVASC) TAB PO SCH (20:10)
[2021-10-24] MEDS ORDERED: polyethylene glycoL POWDER 17 GM (MIRALAX) PACK PO SCH (21:00)
[2021-10-25 03:32] VITALS: BP 139/75
[2021-10-25] MEDS: ACETAMINOPHEN 325 MG TABLET PO SCH ×3 (05:28→22:39)
[2021-10-25] MEDS: CATHETER FLUSH 10 ML SYR IVP SCH ×3 (05:29→20:15)
[2021-10-25 06:08] LABS: HEMATOCRIT 31 % (35-52); HEMOGLOBIN 10.4 g/dL (11.5-16.0); MEAN CORPUSCULAR HEMOGLOBIN 32 pg (25-34); MEAN CORPUSCULAR HGB CONC 33 g/dL (32-36); MEAN CORPUSCULAR VOLUME 98 fL (80-99); MEAN PLATELET VOLUME 11.9 fL (9.0-12.2); PLATELET COUNT 148 10^3/uL (130-400); WHITE BLOOD COUNT 6.9 10^3/uL (4.3-11.0)
[2021-10-25 06:19] LABS: POTASSIUM 4.2 MMOL/L (3.6-5.0)
[2021-10-25 06:20] LABS: CALCIUM 8.6 MG/DL (8.5-10.1)
[2021-10-25 06:24] LABS: CREATININE SERUM 1.44 MG/DL (0.60-1.30)
--- NOTE | 2021-10-25 07:05 | Discharge Summary ---
TUSHAR LAND 10/25/21 0705: Diagnosis/Chief Complaint Date of Admission Oct 18, 2021 at 02:00 Date of Discharge 10/25/21 Discharge Date: Oct 25, 2021 Discharge Time: 07:19 Admission Diagnosis Admission Diagnosis Hypertensive urgency, bradycardia, bilateral leg pain, hx of TIA, anxiety/depression, acute on chronic kidney dx Discharge Diagnosis Hypertensive urgency, bradycardia, bilateral leg pain, hx of TIA, anxiety/depression, acute on chronic kidney dx, S/P pacemaker insertion Reason Hospital Visit Pt is 81 yo female who was admitted to [place] [facility] for hypertensive urgency (24 3 on admission). Pt has had issues with HTN in the past, and has been taken off of several antihypertensives for hypotension and bradycardia. She was recently taken off of amlodipine due to bradycardia. Her home blood pressure readings had been trending upward for at least 3 days, with a reading of 195/87 at 10:25pm on 10/15. The pt was given hydralazine for bp in the ER. CXR showed no acute cardiopulmonary findings. EKG showed sinus bradycardia, probable L atrial enlargement, RBBB. Pt also complained of chronic bilateral leg pain, for which she has a nerve stimulator. Her pain had increased recently. Discharge Summary Hospital Course Hospital Course Pt is 81 yo female who was admitted to [place] ER on 10/18 for hypertensive urgency (243/97 on admission). Pt has had issues with HTN in the past, and has been taken off of several antihypertensives for hypotension and bradycardia. She was recently taken off of amlodipine due to bradycardia. Her home blood pressure readings had been trending upward for at least 3 days, with a reading of 195/87 at 10:25pm on 10/15. The pt was given hydralazine for bp in the ER. CXR showed no acute cardiopulmonary findings. EKG showed sinus bradycardia, probable L atrial enlargement, RBBB. Cardiology was consulted. Pt also complained of chronic bilateral leg pain, for which she has a nerve stimulator. Her pain had increased recently. The pt's malaise and pain worsened after admission. She developed shaking chills and a headache when her blood pressure spiked. When prn hydralazine did not keep her pressure under control, she was given a one time dose of metoprolol. Her bp had been best controlled with clonidine and amlodipine in the past, although that worsened her sinus bradycardia. She was started back on both (a clonidine patch and amlodipine 2.5mg) with plans to insert a pacemaker if her heart rate dropped further. Her bilateral leg pain management included scheduled tylenol, tramadol, and small doses of meloxicam (keeping an eye on her kidney function). She was given occasional doses of alprazolam when she became nervous and shaky. This was switched to scheduled paxil. Her condition and bp did not improve. She was switched to clonidine 0.1 mg and her amlodipine was increased to 5mg BID, which was the dosing that had best controlled her bp in the past. Her heart rate continued to be in the high 40s-low 50s with bps around 177/72. A pacemaker was placed on 10/22. Pt's heart rate increased to 60 baseline. Metoprolol 100mg was started for bp management in addition to clonidine 0.1mg BID and amlodipine 5mg HS PO. She experienced 10/10 pain at the insertion site that night and was given hydrocodone. The hydrocodone was continued the next day, as well as tylenol and tramadol. She was given a low dose of meloxicam since her Cr had improved to 1.39. Lidoderm patches were applied between her shoulder blades, since the pain radiated there. Pt's pain and malaise improved. She is on Keflex post-op. Her O2 dropped into the low 90s. CXR showed bibasilar atelectasis. Spriometry and PT were encouraged before a swing bed would be approved. Despite Miralax, pt has not had a bowel movement since 10/20. She is eating a low salt diet and is urinating without issue. She ambulated with PT yesterday and states her pain is now mild. D/c to [facility] at home is planned. Labs Laboratory Tests 10/22/21 09:15: 10/22/21 09:32: Activated Partial Thromboplast Time 38H 10/23/21 07:46: Red Blood Count 3.43L, Hemoglobin 11.2L, Hematocrit 34L, Chloride Level 108H, Blood Urea Nitrogen 21H, Creatinine 1.39H, Total Protein 5.5L, Albumin 3.0L 10/24/21 05:45: Red Blood Count 3.06L, Hemoglobin 10.0L, Hematocrit 30L, Chloride Level 108H, Blood Urea Nitrogen 23H, Creatinine 1.39H, Calcium Level 8.1L 10/25/21 05:23: Red Blood Count 3.21L, Hemoglobin 10.4L, Hematocrit 31L, Blood Urea Nitrogen 22H , Creatinine 1.44H CHEST PA/LAT (2 VIEW) INDICATION: Left base crackles EXAMINATION: 2 view chest 10/24/2021 COMPARISON: 10/22/2021 FINDINGS: There is bibasal atelectasis. There are no focal infiltrates or effusions. There is no pneumothorax. Left-sided pacemaker unremarkable. There is a stimulator device along the thoracic spine. The heart and pulmonary vasculature normal. IMPRESSION: 1. Bibasal atelectasis. Otherwise chronic changes as above. Dictated by: Dictated on workstation # [id number] Dict:10/24/21 1205 Trans:10/24/21 1401 [facility] [id number] Interpreted by: JACEY ALTAMIRANO MD Electronically signed by: JACEY ALTAMIRANO MD 10/24/21 1401 Procedures S/P pacemaker placement Consultations Cardiology Discharge Physical Examination Allergies: Coded Allergies: Milk Containing Products (Unverified Allergy, Unknown, 04/19/13) FROM UNCODED LIST codeine (Verified Allergy, Unknown, 10/11/20) erythromycin base (Unverified Allergy, Unknown, 08/29/06) metaxalone (Verified Allergy, Unknown, 10/11/20) Vitals & I&Os Vital Signs Date Time Temp Pulse Resp B/P (MAP) Pulse Ox O2 Delivery O2 Flow Rate FiO2 10/25/21 03:32 36.5 71 20 139/75 (96) 93 Room Air 10/23/21 08:29 0.00 General Appearance: Alert, Oriented X3, Cooperative HEENT: PERRLA, EOMI Respiratory: Other (slight bibasilar crackles) Cardiovascular: Regular Rate Abdominal: Normal Bowel Sounds, Soft, No Tenderness Extremities: Other (slight edema; wears thigh high taj hose during the day) Skin: No Rashes Neuro: Normal Speech Psych/Mental Status: Mood NL Discharge Home Medications Reviewed and agree with Discharge Medication list on patient's Discharge Instruction sheet Instructions to Patient/Family Please see electronic discharge instructions given to patient. YADIEL ARAUJO DO 10/26/21 1200: Discharge Summary Discharge Physical Examination Allergies: Coded Allergies: Milk Containing Products (Unverified Allergy, Unknown, 04/19/13) FROM UNCODED LIST codeine (Verified Allergy, Unknown, 10/11/20) erythromycin base (Unverified Allergy, Unknown, 08/29/06) metaxalone (Verified Allergy, Unknown, 10/11/20) Supervisory-Addendum Brief Verification & Attestation Participated in pt care: history, physical Personally performed: exam, history, supervision of care Care discussed with: Medical Student Procedures: n/a Results interpretation: Verified all documentation Patient seen and assessed. Discharge was supposed to be yesterday to SWING bed but since patient was doing so well, therapy felt she could be discharged to home. Patient feeling much better and wants to go home. BP much more controlled and pain controlled. Will DC home with home health. TUSHAR LAND Oct 25, 2021 07:05 YADIEL ARAUJO DO Oct 26, 2021 12:00
[2021-10-25 07:31] VITALS: BP 129/71
--- NOTE | 2021-10-25 08:08 | Cardiology Progress Note ---
Subjective Date Seen by Provider: Oct 25, 2021 Time Seen by Provider: 08:06 Subjective/Events-last exam Patient was seen at bedside laying down comfortably. Feeling better, having more energy. Less dizziness Review of Systems General: No Chills, No Night Sweats, No Fatigue, No Malaise, No Appetite, No Other HEENT: No Head Aches, No Visual Changes, No Eye Pain, No Ear Pain, No Dysphasia, No Sinus Congestion, No Post Nasal Drip, No Sore Throat, No Other Pulmonary: No Dyspnea, No Cough, No Pleuritic Chest Pain, No Other Cardiovascular: No: Chest Pain, Palpitations, Orthopnea, Paroxysmal Noc. Dyspnea, Edema, Lt Headedness, Other Objective-Cardiology Exam Last Set of Vital Signs Vital Signs 10/23/21 10/25/21 08:29 07:31 Temp 36.6 Pulse 60 Resp 16 B/P (MAP) 129/71 (90) Pulse Ox 92 O2 Delivery Room Air O2 Flow Rate 0.00 I&O Intake and Output 10/25/21 00:00 Intake Total 2620 ml Balance 2620 ml Intake Oral 1620 ml IV Total 1000 ml # Voids 9 General: Alert, Oriented X3, Cooperative HEENT: PERRLA, EOMI Neck: Supple, No JVD, No Thyromegaly Lungs: Other (slight bibasilar crackles) Heart: Regular Rate Abdomen: Normal Bowel Sounds, Soft, No Tenderness Extremities: No Clubbing, No Cyanosis, Other (slight edema; wears thigh high taj hose during the day) Skin: No Rashes Neuro: Normal Speech Psych/Mental Status: Mood NL Results Lab Laboratory Tests 10/25/21 05:23 A/P-Cardiology Admission Diagnosis Hypertensive emergency Generalized weakness Syncope Sinus node dysfunction Assessment/Plan Status post hypertensive urgency, difficult to control. Patient had history of syncope with orthostatic hypotension. Amlodipine was stopped on the last office visit, she reported that her heart rate stayed in the 50s but her blood pressure started to go up. Amlodipine was restarted on October 18, 2021, blood pressure is better controlled Maintained on clonidine 0.1 BID, amlodipine 5mg BID, Toprol XL 100mg daily, and hydralazine as needed. Blood pressure is better controlled, still having some variability. I will continue monitoring and will consider increasing Toprol to 200 mg daily in the future Generalized fatigue and loss of energy. Dyspnea on exertion, underlying sinus bradycardia, heart rate in the 50s. s/p PPM implantation, reporting improvement in her symptoms. Orthostatic hypotension, multiple falls, underwent tilt table test on 03/14/2021 and was significantly positive for vasodepressive syncope. Better at this time Echocardiogram was done in February 2021 showing normal left ventricular size, ejection fraction 65 to 70%, grade 1 diastolic dysfunction, mild MR, PA pressure 30 mmHg Tilt table test done on 03/14/2021 was positive for vasodepressive syncope, had a baseline severe hypertension with blood pressure 188/90 and during syncopal episode her blood pressure was 69/40. Heart rate continued to be between 80-100 Sinus node dysfunction with sinus bradycardia, I stopped amlodipine on September 25, 2021, patient continued to have a heart rate in the low 50s. s/p PPM implantation on 10/22/21, [employer], site is C/D/I without erythema. Amlodipine was restarted, Toprol was added and she is tolerating them well. History of mild carotid stenosis, last ultrasound was done in February 2021. continue to monitor Chronic back pain, using a wheelchair History of anxiety, maintained on Xanax as needed, managed by Dr. Hernandez History of tonsillectomy, hysterectomy, laminectomy, lumbar fusion. Okay for discharge and follow-up as an outpatient DIANE DELA CRUZ MD Oct 25, 2021 08:08
--- NOTE | 2021-10-25 09:00 | Physical Therapy Daily Note ---
PT Daily Note-Current Subjective Pt agrees to PT. Pt states L UE is sore but no pain. Mental Status Patient Orientation: Normal For Age Transfers SCALE: Activities may be completed with or without assistive devices. 3-Qfxyawsedu-ccwrmqq completes the activity by him/herself with no assistance from a helper. 5-Set-up or Clean-up Assistance-helper sets up or cleans up; patient completes activity. [place] assists only prior to or following the activity. 4-Supervision or Touching Assistance-helper provides verbal cues and/or touchin g/steadying and/or contact guard assistance as patient completes activity. Assistance may be provided throughout the activity or intermittently. 3-Partial/Moderate Assistance-helper does LESS THAN HALF the effort. [place] lifts, holds or supports trunk or limbs, but provides less than half the effort. 2-Substantial/Maximal Assistance-helper does MORE THAN HALF the effort. [place] lifts or holds trunk or limbs and provides more than half the effort. 8-Fqgcskovm-pfylel does ALL the effort. Patient does none of the effort to complete the activity. Or, the assistance of 2 or more helpers is required for the patient to complete the activity. If activity was not attempted, code reason: 7-Patient Refused. 9-Not Applicable-not attempted and the patient did not perform the activity before the current illness, exacerbation or injury. 10-Not Attempted due to Environmental Limitations-(lack of equipment, weather restraints, etc.). 88-Not Attempted due to Medical Conditions or Safety Concerns. Roll Left & Right (QC): 6 Sit to Lying (QC): 6 Lying to Sitting/Side of Bed(Q: 6 Sit to Stand (QC): 6 Chair/Hhj-tj-Lhyhs Xfer(QC): 6 Toilet Transfer (QC): 6 independent for all bed mobility Weight Bearing Full Weight Bearing Full Weight Bearing Gait Training Does the Patient Walk?: Yes Distance: 300' Walk 10 feet (QC): 5 Walk 50 ft with 2 Turns(QC): 5 Walk 150 ft (QC): 5 Gait Persons Needed: 1 Gait Assistive Device: FWW safe and functional with no deviation Wheelchair Training Does the Pt Use a Wheelchair?: No Assessment Current Status: Good Progress Pt tends to not use the FWW in room but when asked if she can amb. without it in hallway she stated she wanted to use it. Patient toileted self independently and washed hand after without difficulty. PT Bioinformatics Scientist Goals Fdc Goals PT Fdc Goals Time Frame: Oct 27, 2021 Roll Left & Right (QC): 6 Sit to Lying (QC): 6 Lying-Sitting on Side/Bed(QC): 6 Sit to Stand (QC): 6 Chair/Xwu-ic-Sjgft Xfer(QC): 6 Toilet Transfer (QC): 6 Walk 10 feet (QC): 6 Walk 50ft with 2 Turns (QC): 6 Walk 150 ft (QC): 6 PT Plan Treatment/Plan Treatment Plan: Continue Plan of Care Treatment Plan: Education, Functional Activity Usman, Functional Strength, Gait, Safety, Therapeutic Exercise, Transfers Treatment Duration: Oct 27, 2021 Frequency: 6 times per week Estimated Hrs Per Day: .25 hour per day Time/GCodes Time In: 830 Time Out: 853 Total Billed Treatment Time: 23 Total Billed Treatment 1, FA x2 (23 min) ANAID BOSE PT Oct 25, 2021 09:00
[2021-10-25] MEDS ORDERED: BISACODYL 10 MG SUPP (DULCOLAX) PR NR (09:19)
[2021-10-25] MEDS: SENNA W/DOCUSATE (SENOKOT S) TABLET PO SCH ×2 (09:31→20:14)
[2021-10-25] MEDS: meTOprolol SUCCINATE 100 MG (TOPROL XL) TAB PO SCH (09:32)
[2021-10-25] MEDS: VITAMIN D3 125 MCG (5,000 UNITS) CAPSULE PO SCH (09:32)
[2021-10-25] MEDS: CEPHALEXIN 250 MG (KEFLEX) CAP PO SCH ×2 (09:32→20:14)
[2021-10-25] MEDS: LIDOCAINE 4% (SALONPAS) PATCH TOP SCH (09:32)
[2021-10-25] MEDS: PANTOPRAZOLE 40 MG (PROTONIX) TAB PO SCH (09:32)
[2021-10-25] MEDS: cloNIDine 0.1 MG (CATAPRES) TAB PO SCH ×2 (09:32→20:14)
[2021-10-25 11:27] VITALS: BP 153/72
[2021-10-25 15:35] VITALS: BP 162/74
--- NOTE | 2021-10-25 17:38 | Progress Note ---
Subjective Date Seen by a Provider: Oct 25, 2021 Time Seen by a Provider: 08:35 Subjective/Events-last exam Fwup hypertensive urgency, orthostatic hypotension, S/P pacemaker for sinus node dysfunction, anxiety, lumbar radiculopathy, weakness. Patient feeling better this morning. Still no bowel movement. Pain better. Objective Exam Vital Signs Date Time Temp Pulse Resp B/P (MAP) Pulse Ox O2 Delivery O2 Flow Rate FiO2 10/25/21 15:35 61 18 162/74 (103) 95 Room Air 10/25/21 13:00 61 10/25/21 11:27 35.8 60 16 153/72 (99) 97 Room Air 10/25/21 09:00 Room Air 10/25/21 07:31 36.6 60 16 129/71 (90) 92 Room Air 10/25/21 07:00 59 10/25/21 03:32 36.5 71 20 139/75 (96) 93 Room Air 10/25/21 01:00 60 10/24/21 23:25 36.8 65 22 172/74 (106) 92 Room Air 10/24/21 20:45 93 Room Air 10/24/21 20:00 37.1 62 18 159/70 (99) 93 Room Air 10/24/21 19:00 70 I & O 10/25/21 07:00 Intake Total 2470 ml Output Total 300 ml Balance 2170 ml Capillary Refill : Less Than 3 Seconds General Appearance: No Apparent Distress Respiratory: Lungs Clear Cardiovascular: Regular Rate, Rhythm, Systolic Murmur Gastrointestinal: normal bowel sounds, non tender, soft Extremity: Non Tender, No Calf Tenderness, No Pedal Edema Neurologic/Psychiatric: Alert, Oriented x3 Skin: Warm/Dry, Other (left upper chest wound with dry bandage in place) Results Lab Laboratory Tests 10/25/21 05:23: White Blood Count 6.9, Red Blood Count 3.21L, Hemoglobin 10.4L, Hematocrit 31L, Mean Corpuscular Volume 98, Mean Corpuscular Hemoglobin 32, Mean Corpuscular Hemoglobin Concent 33, Red Cell Distribution Width 12.1, Platelet Count 148, Mean Platelet Volume 11.9, Sodium Level 139, Potassium Level 4.2, Chloride Level 105, Carbon Dioxide Level 22, Anion Gap 12, Blood Urea Nitrogen 22H, Creatinine 1.44H, Estimat Glomerular Filtration Rate 36, BUN/Creatinine Ratio 15, Glucose Level 104, Calcium Level 8.6 Microbiology 10/22/21 MRSA Screen - Final, Complete MRSA not isolated Assessment/Plan Assessment/Plan Assess & Plan/Chief Complaint 1. Hypertensive Urgency/Labile Hypertension--now on clonidine with metoprolol in AM and clonidine with amlodopine in PM 2. Sinus Bradycardia with Sinus Node Dysfunction--S/P pacemaker 3. Orthostatic Hypotension--wearing thigh high MATT hose--on in AM and off in PM 4. Post-Pacemaker Pain/Lumbar radiculopathy--pain much better today 5. Weakness--working with PT and OT and improving Considered SWING bed but patient improving so much the last 2 days that will likely be able to go home with home health and her regular caretakers in place YADIEL ARAUJO DO Oct 25, 2021 17:38
[2021-10-25 19:32] VITALS: BP 155/67
[2021-10-25] MEDS: amLODIPine 5 MG (NORVASC) TAB PO SCH (20:14)
[2021-10-25] MEDS: DONEPEZIL 5 MG (ARICEPT) TAB PO SCH (20:14)
[2021-10-25] MEDS: PARoxetine 10 MG (PAXIL) TAB PO SCH (20:14)
[2021-10-26] VITALS: BP 156/73
[2021-10-26 04:00] VITALS: BP 147/65
[2021-10-26] MEDS: ACETAMINOPHEN 325 MG TABLET PO SCH (06:24)
[2021-10-26] MEDS: CATHETER FLUSH 10 ML SYR IVP SCH (06:24)
[2021-10-26 07:28] VITALS: BP 154/71
[2021-10-26] MEDS ORDERED: BISACODYL 10 MG SUPP (DULCOLAX) PR SCH (09:00)
[2021-10-26] MEDS: SENNA W/DOCUSATE (SENOKOT S) TABLET PO SCH (09:14)
[2021-10-26] MEDS: PANTOPRAZOLE 40 MG (PROTONIX) TAB PO SCH (09:14)
[2021-10-26] MEDS: LIDOCAINE 4% (SALONPAS) PATCH TOP SCH (09:15)
[2021-10-26] MEDS: cloNIDine 0.1 MG (CATAPRES) TAB PO SCH (09:15)
[2021-10-26] MEDS: meTOprolol SUCCINATE 100 MG (TOPROL XL) TAB PO SCH (09:15)
[2021-10-26] MEDS: CEPHALEXIN 250 MG (KEFLEX) CAP PO SCH (09:15)
[2021-10-26] MEDS: VITAMIN D3 125 MCG (5,000 UNITS) CAPSULE PO SCH (09:15)
[2021-10-26] MEDS: ASPIRIN E.C. 81 MG (ECOTRIN) TAB PO SCH (09:20)
[2021-10-26] MEDS ORDERED: TRM50T PO (10:00)
[2021-10-26] MEDS ORDERED: AMLO-250 PO (10:00)
[2021-10-26] MEDS ORDERED: MTP100TCR PO (10:00)
--- NOTE | 2021-10-26 10:04 | D/C HH Face to Face Order ---
D/C Face to Face Orders Reconcile Patient Problems Problems Reviewed?: Yes Instructions for Patient Via [facility], Patient Instructions/FollowUp: Fwup with me as scheduled Physician to follow Patient: Mary Discharge Diet for Home: Low Sodium Diet Patient Data-Allergies,Ht & Wt Patient Allergies: Coded Allergies: Milk Containing Products (Unverified Allergy, Unknown, 04/19/13) FROM UNCODED LIST codeine (Verified Allergy, Unknown, 10/11/20) erythromycin base (Unverified Allergy, Unknown, 08/29/06) metaxalone (Verified Allergy, Unknown, 10/11/20) Height (Feet): 5 Height (Inches): 5.00 Weight (Pounds): 140 Weight (Ounces): 0.0 Home Health Need/Face to Face Date of Face to Face: Oct 26, 2021 Clinical Findings: Generalized weakness and fatigue, Instability, Other-list in note (left arm sling from pacemaker) I have seen Pt [id number]: Yes Discharged To: Home Diagnosis/Conditions: Labile Hypertension Orthostatic Hypotension Sinus Bradycardia due to Sinus Node Dysfunction--S/P Pacemaker placement Anxiety Patient is Homebound due to: CognItive deficits (mild dementia), Aden fall risk due to instabilty Homebound Status Due to the above stated illness, injury or surgical procedure (medical condition or diagnosis) and associated clinical findings, the patient is homebound because of his/her inability to leave home except with aid of a supportive device and/or person AND leaving the home requires a considerable and taxing effort or is medically contraindicated. Pt req the following assistanc: Walker Home Health Nursing Orders Home Health Services Order: Nursing Services, Network Designer-Evaluate & Irasema t, Physical Therapy-Evaluate & Treat Home Health Infusion Therapy Line Start Date: Oct 22, 2021 Therapy Orders Thigh High MATT [place]--on in AM and off in PM Certify Stmt I certify that this patient is under my care and that I, a nurse practitioner or a physician; a patient clerical assistant working with me, had a face to face encounter that - meets the physician face to face encounter requirements with this patient as dated. YADIEL ARAUJO DO Oct 26, 2021 10:04
--- NOTE | 2021-10-26 10:43 | Physical Therapy Daily Note ---
PT Daily Note-Current Subjective Patient had just finish toileting prior to PT. Patient compliant to start PT with no new complaints. Pain Location: No Pain Reported Mental Status Patient Orientation: Person, Place, Situation Transfers SCALE: Activities may be completed with or without assistive devices. 4-Kvaqjvrzzz-adcmhla completes the activity by him/herself with no assistance from a helper. 5-Set-up or Clean-up Assistance-helper sets up or cleans up; patient completes activity. [place] assists only prior to or following the activity. 4-Supervision or Touching Assistance-helper provides verbal cues and/or touching/steadying and/or contact guard assistance as patient completes activity. Assistance may be provided throughout the activity or intermittently. 3-Partial/Moderate Assistance-helper does LESS THAN HALF the effort. [place] lifts, holds or supports trunk or limbs, but provides less than half the effort. 2-Substantial/Maximal Assistance-helper does MORE THAN HALF the effort. [place] lifts or holds trunk or limbs and provides more than half the effort. 2-Fnupzcilg-gwixoi does ALL the effort. Patient does none of the effort to complete the activity. Or, the assistance of 2 or more helpers is required for the patient to complete the activity. If activity was not attempted, code reason: 7-Patient Refused. 9-Not Applicable-not attempted and the patient did not perform the activity before the current illness, exacerbation or injury. 10-Not Attempted due to Environmental Limitations-(lack of equipment, weather restraints, etc.). 88-Not Attempted due to Medical Conditions or Safety Concerns. Sit to Lying (QC): 5 Lying to Sitting/Side of Bed(Q: 5 Sit to Stand (QC): 5 Weight Bearing Full Weight Bearing Full Weight Bearing Gait Training Does the Patient Walk?: Yes Distance: 250' Walk 10 feet (QC): 5 Walk 50 ft with 2 Turns(QC): 5 Walk 150 ft (QC): 5 Gait Assistive Device: FWW Patient walked with FWW with R arm due to the L arm in a sling. Normal gait pattern and safe ambulation speed. Exercises Seated Therapy Exercises: Ankle pumps, Long arc quads, Hip flexion, Glut set Seated Reps: 20 Treatments LE strengthening Ambulation Assessment Current Status: Fair Progress Patient ambulated well. Patient needed a seated rest break due to fatigue after walking 250'. Patient was left in chair with call light, tray, and all needs met. PT Mechanical Manager Goals Mechanical Manager Goals PT Mechanical Manager Goals Time Frame: Oct 27, 2021 Roll Left & Right (QC): 6 Sit to Lying (QC): 6 Lying-Sitting on Side/Bed(QC): 6 Sit to Stand (QC): 6 Chair/Vvc-bf-Nzmys Xfer(QC): 6 Toilet Transfer (QC): 6 Walk 10 feet (QC): 6 Walk 50ft with 2 Turns (QC): 6 Walk 150 ft (QC): 6 PT Plan Problem List Problem List: Activity Tolerance, Functional Strength, Safety, Balance, Gait, Transfer, ROM Treatment/Plan Treatment Plan: Continue Plan of Care Treatment Plan: Education, Functional Activity Usman, Functional Strength, Gait, Safety, Therapeutic Exercise, Transfers Treatment Duration: Oct 27, 2021 Frequency: 6 times per week Estimated Hrs Per Day: .25 hour per day Patient and/or Family Agrees t: Yes Safety Risks/Education Patient Education: Gait Training, Correct Positioning, Safety Issues Teaching Recipient: Patient Teaching Methods: Discussion Response to Teaching: Verbalize Understanding Time/GCodes Time In: 1000 Time Out: 1015 Total Billed Treatment Time: 15 Total Billed Treatment 1 visit FA 15min STEVEN NETTLES PT Oct 26, 2021 10:43
[2021-10-26 11:04] VITALS: BP 136/76
[2021-10-26 13:00] VITALS: BP 136/76
== END 2021-10-26 13:10 | disposition home health service (06) | DRG 243 ==
LOC: EDUNIT# 00:20 → ER 00:23 → CSD 02:00 → EDLOC 02:00 → 4TH 10-20 13:15
PROVIDERS: ADMIT Family Medicine; ATTEND Family Medicine
PROC: 02H63JZ Insertion of Pacemaker Lead into Right Atrium, Percutaneous Approach (ICD-10-PCS; principal; 2021-10-22)
PROC: 02HK3JZ Insertion of Pacemaker Lead into Right Ventricle, Percutaneous Approach (ICD-10-PCS; 2021-10-22)
PROC: 0JH606Z Insertion of Pacemaker, Dual Chamber into Chest Subcutaneous Tissue and Fascia, Open Approach (ICD-10-PCS; 2021-10-22)
DX: I16.0 Hypertensive urgency (principal); N17.9 Acute kidney failure, unspecified; I12.9 Hypertensive chronic kidney disease with stage 1 through stage 4 chronic kidney disease, or unspecified chronic kidney disease; N18.9 Chronic kidney disease, unspecified; I95.1 Orthostatic hypotension; E78.00 Pure hypercholesterolemia, unspecified; F03.90 Unspecified dementia, unspecified severity, without behavioral disturbance, psychotic disturbance, mood disturbance, and anxiety; I49.5 Sick sinus syndrome; Z20.822 Contact with and (suspected) exposure to COVID-19; M54.16 Radiculopathy, lumbar region; R53.1 Weakness; F41.9 Anxiety disorder, unspecified; F32.A Depression, unspecified; K21.9 Gastro-esophageal reflux disease without esophagitis; E03.9 Hypothyroidism, unspecified; I34.0 Nonrheumatic mitral (valve) insufficiency; H54.3 Unqualified visual loss, both eyes; Z86.73 Personal history of transient ischemic attack (TIA), and cerebral infarction without residual deficits; M54.9 Dorsalgia, unspecified; Z98.1 Arthrodesis status; Z88.5 Allergy status to narcotic agent; Z88.8 Allergy status to other drugs, medicaments and biological substances; Z88.1 Allergy status to other antibiotic agents; Z91.011 Allergy to milk products
CPT/HCPCS: 33208; 36415; 71045; 71046; 80048; 80053; 81000; 83735; 83880; 84484; 85007; 85025; 85027; 85610; 85730; 87081; 87636; 93005; 93041; 94664

== ENCOUNTER 2022-03-11 08:37 | Emergency (ER) | payer MEDICARE, OTHER ==
[~2022-03-11] VITALS: Ht 170.1 cm; Wt 58.9 kg
[~2022-03-11 08:37] MED LIST changes: +CLN.1T PO; +MTP100TCR PO
--- NOTE | 2022-03-11 09:17 | ED GI ---
General Chief Complaint: Abdominal/GI Problems Stated Complaint: NAUSEA Nursing Triage Note: PT ARRIVED VIA WITH SISTER. PT STATED THAT SHE HAS HAD CONSTANT NAUSEA FOR MONTHS. PT HAS CHANGED MEDICATIONS DUE TO THIS ISSUE BUT STILL HAS NOT HAD RELIEF. Source of Information: Patient Exam Limitations: No Limitations History of Present Illness Date Seen by Provider: Mar 11, 2022 Time Seen by Provider: 09:00 Initial Comments Patient is an 81-year-old female who presents to the emergency department today with a chief complaint of chronic, persistent nausea. Patient stated states over the last 2 to 3 months she has had multiple changes to her blood pressure medications and she believes the nausea was related to the changes. She follows with Dr. Hernandez as well as Dr. Quinn. Last September she had a pacemaker placed. She does have pantoprazole and Zofran in her medications, she has not taken anything today. She states the nausea became so bad throughout the night and this morning she decided to come in for evaluation. She has been seeing Dr. HERNANDEZ every week/2 weeks/monthly. No improvements over the last 3 months. She denies fevers or chills. No diarrhea, black or bloody stools. She has been fighting constipation and will go 3 or 4 days without a bowel movement, ultimately disimpacting herself manually. She occasionally has dysuria. She is chronically slightly incontinent. Prior abdominal surgeries include cholecystectomy, appendectomy, hysterectomy. She cannot recall when her last colonoscopy was. No specific abdominal pain reported. All other review of systems reviewed and negative except as stated. Timing/Duration: Constant, Getting Worse, Other (months) Severity/Quality: Severe Location: Generalized Abdomen Radiation: No Radiation Activities at Onset: None Associated Symptoms: Nausea/Vomiting, Weakness, Other (10lb weight loss 2-3 months) Allergies and Home Medications Allergies Coded Allergies: Milk Containing Products (Unverified Allergy, Unknown, 04/19/13) FROM UNCODED LIST codeine (Verified Allergy, Unknown, 10/11/20) erythromycin base (Unverified Allergy, Unknown, 08/29/06) metaxalone (Verified Allergy, Unknown, 10/11/20) Patient Home Medication List Home Medication List Reviewed: Yes Acetaminophen (Tylenol Arthritis) 650 Mg Tablet.er, 1,300 MG PO TID, (Reported) Entered as Reported by: VIRGEN TATUM on 08/06/21 1005 Amlodipine Besylate (Amlodipine Besylate) 5 Mg Tablet, 5 MG PO HS Prescribed by: YADIEL HERNANDEZ on 10/26/21 1000 Cholecalciferol (Vitamin D3) (Vitamin D3) 125 Mcg (5000 Unit) Tablet, 125 MCG PO DAILY, (Reported) Entered as Reported by: VIRGEN TATUM on 10/18/21 1508 Clonidine HCl (Clonidine HCl) 0.1 Mg Tablet, 0.1 MG PO BID, (Reported) Entered as Reported by: VIRGEN TATUM on 10/18/21 1508 Donepezil HCl (Donepezil HCl) 5 Mg Tablet, 5 MG PO HS, (Reported) Entered as Reported by: VIRGEN TATUM on 10/18/21 1508 Metoprolol Succinate (Metoprolol Succinate) 100 Mg Tab.er.24h, 100 MG PO DAILY Prescribed by: YADIEL HERNANDEZ on 10/26/21 1000 Pantoprazole Sodium (Pantoprazole Sodium) 40 Mg Tablet.dr, 40 MG PO BID, (Reported) Entered as Reported by: VIRGEN TATUM on 10/18/21 1508 Paroxetine HCl (Paroxetine HCl) 10 Mg Tablet, 10 MG PO HS, (Reported) Entered as Reported by: VIRGEN TATUM on 10/18/21 1508 Tramadol HCl (Tramadol HCl) 50 Mg Tablet, 25-50 MG PO TID PRN for PAIN-MODERATE (5-7) Prescribed by: YADIEL HERNANDEZ on 10/26/21 1206 Review of Systems Review of Systems Constitutional: see HPI EENTM: No Symptoms Reported Respiratory: No Symptoms Reported Cardiovascular: No Symptoms Reported Gastrointestinal: Nausea Genitourinary: Burning (occasional) Musculoskeletal: no symptoms reported Skin: no symptoms reported Psychiatric/Neurological: No Symptoms Reported All Other Systems Reviewed Negative Unless Noted: Yes Past Rdhkmfb-Iojadg-Ldekyz Hx Patient Social History Tobacco Use?: No Substance use?: No Alcohol Use?: No Immunizations Up To Date Tetanus Booster (TDap): More than 5yrs PED Vaccines UTD: Yes Influenza Vaccine Up-to-Date: No; Not Current First/Initial COVID19 Vaccinat: 2020 Second COVID19 Vaccination Bladimir: 2020 Third COVID19 Vaccination Date: 2020 Seasonal Allergies Seasonal Allergies: No Past Medical History Surgeries: Yes (BLADDER SLING 1996;R CATARACT 10/13/20;L CATARACT 11/03/20) Bladder Surgery, Eye Surgery, 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, Orthopedic, Tonsillectomy Respiratory: No Cardiac: Yes (ORTHOSTASIS; BRADYCARDIA) High Cholesterol, Hypertension Neurological: Yes Dementia, TIA Reproductive Disorders: No Female Reproductive Disorders: 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 History: 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, Menopausal Sexually Transmitted Disease: No HIV/AIDS: No Genitourinary: No Gastrointestinal: Yes Gastroesophageal Reflux, Chronic Constipation Musculoskeletal: Yes (FALLS, CHRONIC GENERALIZED PAIN ) Degenerate Disk Disease, Chronic Back Pain, Fractures Endocrine: Yes HEENT: Yes Cataract Loss of Vision: Bilateral Hearing Impairment: Denies Cancer: No Psychosocial: Yes Anxiety Integumentary: No Pruritis Blood Disorders: No Adverse Reaction/Blood Tranf: No Family Medical History Alzheimer's disease Arthritis Asthma Colon cancer Completed stroke Dementia Hypertension Myocardial infarction Visual disorder Cancer, Lung Disease, Other Conditions/Hx Physical Exam Vital Signs Vital Signs - First Documented 03/11/22 08:50 Temp 36.0 Pulse 63 Resp 16 B/P (MAP) 205/107 (139) Pulse Ox 98 O2 Delivery Room Air Capillary Refill : Height/Weight/BMI Height: 5'5.00" Weight: 140lbs. 0.0oz. 63.524155oo; 20.00 BMI Method:Stated General Appearance: WD/WN, no apparent distress HEENT: PERRL/EOMI Neck: normal inspection Respiratory: lungs clear, normal breath sounds, no respiratory distress, no accessory muscle use Cardiovascular: regular rate, rhythm (60's) Gastrointestinal: soft, abnormal bowel sounds (hypoactive), other (palpation of the abdomen/epigastrum elicits nausea) Neurologic/Psychiatric: alert, normal mood/affect, oriented x 3 Skin: normal color, warm/dry Progress/Results/Core Measures Results/Orders Lab Results Laboratory Tests Test 03/11/22 09:30 03/11/22 11:40 Range/Units White Blood Count 7.7 4.3-11.0 10^3/uL Red Blood Count 3.80 3.80-5.11 10^6/uL Hemoglobin 12.4 11.5-16.0 g/dL Hematocrit 37 35-52 % Mean Corpuscular Volume 97 80-99 fL Mean Corpuscular Hemoglobin 33 25-34 pg Mean Corpuscular Hemoglobin Concent 34 32-36 g/dL Red Cell Distribution Width 12.7 10.0-14.5 % Platelet Count 215 130-400 10^3/uL Mean Platelet Volume 10.2 9.0-12.2 fL Immature Granulocyte % (Auto) 0 % Neutrophils (%) (Auto) 60 42-75 % Lymphocytes (%) (Auto) 31 12-44 % Monocytes (%) (Auto) 8 0-12 % Eosinophils (%) (Auto) 1 0-10 % Basophils (%) (Auto) 0 0-10 % Neutrophils # (Auto) 4.6 1.8-7.8 10^3/uL Lymphocytes # (Auto) 2.4 1.0-4.0 10^3/uL Monocytes # (Auto) 0.6 0.0-1.0 10^3/uL Eosinophils # (Auto) 0.1 0.0-0.3 10^3/uL Basophils # (Auto) 0.0 0.0-0.1 10^3/uL Immature Granulocyte # (Auto) 0.0 0.0-0.1 10^3/uL Sodium Level 142 135-145 MMOL/L Potassium Level 4.1 3.6-5.0 MMOL/L Chloride Level 102 98-107 MMOL/L Carbon Dioxide Level 31 21-32 MMOL/L Anion Gap 9 5-14 MMOL/L Blood Urea Nitrogen 19 H 7-18 MG/DL Creatinine 1.42 H 0.60-1.30 MG/DL Estimat Glomerular Filtration Rate 37 BUN/Creatinine Ratio 13 Glucose Level 120 H 70-105 MG/DL Calcium Level 9.3 8.5-10.1 MG/DL Corrected Calcium 9.5 8.5-10.1 MG/DL Total Bilirubin 0.4 0.1-1.0 MG/DL Aspartate Amino Transf (AST/SGOT) 29 5-34 U/L Alanine Aminotransferase (ALT/SGPT) 19 0-55 U/L Alkaline Phosphatase 47 40-136 U/L Total Protein 6.7 6.4-8.2 GM/DL Albumin 3.7 3.2-4.5 GM/DL Lipase 31 8-78 U/L Urine Color YELLOW Urine Clarity SL CLOUDY Urine pH 6.0 5-9 Urine Specific [place] 1.025 H 1.016-1.022 Urine Protein 3+ H NEGATIVE Urine Glucose (UA) NEGATIVE NEGATIVE Urine Ketones NEGATIVE NEGATIVE Urine Nitrite NEGATIVE NEGATIVE Urine Bilirubin NEGATIVE NEGATIVE Urine Urobilinogen 0.2 < = 1.0 MG/DL Urine Leukocyte Esterase NEGATIVE NEGATIVE Urine RBC (Auto) 1+ H NEGATIVE Urine RBC 5-10 H /HPF Urine WBC 2-5 /HPF Urine Crystals NONE /LPF Urine Bacteria LARGE H /HPF Urine Casts NONE /LPF Urine Mucus NEGATIVE /LPF Urine Culture Indicated YES My Orders Orders - HARJIT RASHID MD Ed Iv/Invasive Line Start (03/11/22 09:25) Cbc With Automated Diff (03/11/22 09:25) Comprehensive Metabolic Panel (03/11/22 09:25) Lipase (03/11/22 09:25) Ua Culture If Indicated (03/11/22 09:25) Ns Iv 500 Ml (Sodium Chloride 0.9%) (03/11/22 09:30) Pantoprazole Injection (Protonix Injecti (03/11/22 09:30) Ondansetron Injection (Zofran Injectio (03/11/22 09:30) Urine Culture (03/11/22 11:40) Medications Given in ED Current Medications Medications Dose Ordered Sig/Deborah Route Start Time Stop Time Status Last Admin Dose Admin Ondansetron HCl 4 mg ONCE ONCE IVP 03/11/22 09:30 03/11/22 09:31 DC 03/11/22 09:44 4 MG Pantoprazole 40 mg ONCE ONCE IV 03/11/22 09:30 03/11/22 09:31 DC 03/11/22 09:44 40 MG Vital Signs/I&O 03/11/22 08:50 Temp 36.0 Pulse 63 Resp 16 B/P (MAP) 205/107 (139) Pulse Ox 98 O2 Delivery Room Air Blood Pressure Mean: 139 Progress Progress Note : Time: 12:27 Progress Note Patient feels no different after Zofran and fluids. We will switch her over to some Phenergan, I did caution her that Phenergan will make her sleepy. She is encouraged to try this medication for the next couple of days and follow-up with Dr. Hernandez's nurse in clinic. I did also suggest that she follows up with Dr. Cool for an EGD for further evaluation of her chronic nausea. Her vital signs remained stable. She has a benign abdomen. All questions are sought and answered. I am also going to send her with a prescription for Macrobid for UTI as she is slightly symptomatic. Departure Impression Primary Impression: Chronic nausea Additional Impression: UTI (urinary tract infection) Qualified Codes: N30.01 - Acute cystitis with hematuria Disposition: HOME, SELF-CARE Condition: Stable Departure-Patient Inst. Referrals: YADIEL HERNANDEZ DO (PCP/Family) Primary Care Physician Patient Instructions: Urinary Tract Infection, Adult ED, Nausea and Vomiting, Adult (DC) Add. Discharge Instructions: Sips of fluids throughout the day to stay well-hydrated. Phenergan tablets, 25 mg 1 every 6-8 hours as needed for nausea. This medication can make you sleepy. Try this for the next couple of days and be sure and follow-up with Dr. Hernandez's nurse in her clinic. Macrobid antibiotics 1 tablet twice a day for 5 days for urinary tract infection. I have also put down Dr. Cool, general surgery for further evaluation of your nausea and discomfort. You need an upper endoscopy/scope to evaluate for ulcers or other pathology. Return to the emergency department for any new, concerning or emergent complaints. Scripts Nitrofurantoin Monohyd/M-Cryst (Macrobid 100 mg Capsule) 100 Mg Capsule 1 TAB PO BID, #10 CAP Prov: HARJIT RASHID MD 03/11/22 Promethazine HCl (Promethazine Tablet) 25 Mg Tablet 25 MG PO Q6H PRN for NAUSEA/VOMITING, #10 TAB Prov: HARJIT RASHID MD 03/11/22 Copy Copies To 1: YADIEL HERNANDEZ DO Copies To 2: JUDSON COOL KATHRYN M MD Mar 11, 2022 09:17
[2022-03-11] MEDS ORDERED: NS IV 500 ML 500 ML IV SCH (09:30)
[2022-03-11] MEDS ORDERED: PANTOPRAZOLE 40 MG (PROTONIX) VIAL IV ONE (09:30)
[2022-03-11] MEDS ORDERED: ONDANSETRON 4 MG/2 ML (SDV) Z0FRAN IVP ONE (09:30)
[2022-03-11 09:35] LABS: BASOPHILS % (AUTO) 0 % (0-10); EOSINOPHILS # (AUTO) 0.1 10^3/uL (0.0-0.3); EOSINOPHILS % (AUTO) 1 % (0-10); HEMATOCRIT 37 % (35-52); HEMOGLOBIN 12.4 g/dL (11.5-16.0); LYMPHOCYTES # (AUTO) 2.4 10^3/uL (1.0-4.0); LYMPHOCYTES % (AUTO) 31 % (12-44); MEAN CORPUSCULAR HEMOGLOBIN 33 pg (25-34); MEAN CORPUSCULAR HGB CONC 34 g/dL (32-36); MEAN CORPUSCULAR VOLUME 97 fL (80-99); MEAN PLATELET VOLUME 10.2 fL (9.0-12.2); MONOCYTES # (AUTO) 0.6 10^3/uL (0.0-1.0); MONOCYTES % (AUTO) 8 % (0-12); NEUTROPHILS # (AUTO) 4.6 10^3/uL (1.8-7.8); NEUTROPHILS % (AUTO) 60 % (42-75); PLATELET COUNT 215 10^3/uL (130-400); WHITE BLOOD COUNT 7.7 10^3/uL (4.3-11.0)
[2022-03-11 09:52] LABS: ALBUMIN 3.7 GM/DL (3.2-4.5); POTASSIUM 4.1 MMOL/L (3.6-5.0)
[2022-03-11 09:53] LABS: CALCIUM 9.3 MG/DL (8.5-10.1)
[2022-03-11 09:54] LABS: TOTAL PROTEIN 6.7 GM/DL (6.4-8.2)
[2022-03-11 09:56] LABS: BILIRUBIN,TOTAL 0.4 MG/DL (0.1-1.0)
[2022-03-11 09:58] LABS: CREATININE SERUM 1.42 MG/DL (0.60-1.30)
[2022-03-11 11:53] LABS: BILIRUBIN,URINE NEGATIVE (NEGATIVE); CLARITY,URINE SL CLOUDY; COLOR,URINE YELLOW; GLUCOSE, URINE (UA) NEGATIVE (NEGATIVE); KETONES,URINE NEGATIVE (NEGATIVE); LEUKOCYTE ESTERASE ,URINE NEGATIVE (NEGATIVE); NITRITE,URINE NEGATIVE (NEGATIVE); PROTEIN,URINE 3+ (NEGATIVE)
[2022-03-11 12:01] LABS: BACTERIA,URINE LARGE /HPF
[2022-03-11] MEDS ORDERED: PROM25TA14 PO (12:30)
[2022-03-11] MEDS ORDERED: NITR-65 PO (12:30)
[2022-03-11 12:45] VITALS: BP 169/88
[2022-03-11] MEDS ORDERED: PROMETHAZINE 25 MG (PHENERGAN) TAB PO ONE (12:45)
== END 2022-03-11 12:45 | disposition home or self-care (01) ==
LOC: EDUNIT# 08:37 → ER 08:38
DX: N39.0 Urinary tract infection, site not specified (principal); Z88.1 Allergy status to other antibiotic agents
CPT/HCPCS: 36415; 51702; 80053; 81000; 83690; 85025; 87077; 87088; 87186

== ENCOUNTER 2022-03-25 11:28 | Inpatient (IN) | payer MEDICARE, OTHER ==
[~2022-03-25] VITALS: Ht 167 cm; Wt 63.5 kg
[~2022-03-25 11:28] MED LIST changes: +LORA-1389 PO; -LORA-53 PO; +NITR-65 PO; +PROM25TA14 PO
[2022-03-25 12:11] LABS: BASOPHILS # (AUTO) 0.1 10^3/uL (0.0-0.1); BASOPHILS % (AUTO) 1 % (0-10); EOSINOPHILS # (AUTO) 0.1 10^3/uL (0.0-0.3); EOSINOPHILS % (AUTO) 1 % (0-10); HEMATOCRIT 41 % (35-52); HEMOGLOBIN 13.7 g/dL (11.5-16.0); LYMPHOCYTES # (AUTO) 2.7 10^3/uL (1.0-4.0); LYMPHOCYTES % (AUTO) 34 % (12-44); MEAN CORPUSCULAR HEMOGLOBIN 33 pg (25-34); MEAN CORPUSCULAR HGB CONC 34 g/dL (32-36); MEAN CORPUSCULAR VOLUME 97 fL (80-99); MEAN PLATELET VOLUME 10.3 fL (9.0-12.2); MONOCYTES # (AUTO) 0.5 10^3/uL (0.0-1.0); MONOCYTES % (AUTO) 6 % (0-12); NEUTROPHILS # (AUTO) 4.5 10^3/uL (1.8-7.8); NEUTROPHILS % (AUTO) 57 % (42-75); PLATELET COUNT 210 10^3/uL (130-400); WHITE BLOOD COUNT 7.9 10^3/uL (4.3-11.0)
--- NOTE | 2022-03-25 12:14 | ED GI ---
General Chief Complaint: Abdominal/GI Problems Stated Complaint: NAUSEA Nursing Triage Note: PT TO TRIAGE VIA WC W REPORTS OF CONCERN FOR BOWEL OBSTRUCTION. PT REPORTS LAST BM 4 DAYS AGO, PT HAS TRIED SEVERAL DIFFERENT METHODS AT HOME TO PRODUCE BM W NO SUCCESS. PT RETCHING DURING TRIAGE, STATES SHE HAD AN APPT W DR. COOL THIS AFTERNOON BUT SHE HAD TO CANCEL D/T SICKNESS. PT C/O VOMITING AND BLOATING X5 DAYS, A&OX4. Source of Information: Patient Exam Limitations: No Limitations History of Present Illness Date Seen by Provider: Mar 25, 2022 Time Seen by Provider: 12:13 Initial Comments To ER by private vehicle with reports of possible bowel obstruction. She was scheduled to see Dr. Cool today but had to cancel due to her nausea and feeling ill. She has not had a bowel movement in 4 days. She has not been passing gas. She has had vomiting of bile. She denies any abdominal pain. She did do a digital disimpaction at home and got a stool ball out a few days ago. Still unable to have a bowel movement. No history of bowel obstructions. Timing/Duration: 3-4 Days Severity/Quality: Moderate Location: Suprapubic Radiation: No Radiation Activities at Onset: None Associated Symptoms: Denies Symptoms Allergies and Home Medications Allergies Coded Allergies: Milk Containing Products (Unverified Allergy, Unknown, 04/19/13) FROM UNCODED LIST codeine (Verified Allergy, Unknown, 10/11/20) erythromycin base (Unverified Allergy, Unknown, 08/29/06) metaxalone (Verified Allergy, Unknown, 10/11/20) Patient Home Medication List Home Medication List Reviewed: Yes Acetaminophen (Tylenol Arthritis) 650 Mg Tablet.er, 1,300 MG PO TID, (Reported) Entered as Reported by: VIRGEN TATUM on 08/06/21 1005 Amlodipine Besylate (Amlodipine Besylate) 5 Mg Tablet, 5 MG PO HS Prescribed by: YADIEL ARAUJO on 10/26/21 1000 Cholecalciferol (Vitamin D3) (Vitamin D3) 125 Mcg (5000 Unit) Tablet, 125 MCG PO DAILY, (Reported) Entered as Reported by: VIRGEN TATUM on 10/18/21 1508 Clonidine HCl (Clonidine HCl) 0.1 Mg Tablet, 0.1 MG PO BID, (Reported) Entered as Reported by: VIRGEN TATUM on 10/18/21 1508 Donepezil HCl (Donepezil HCl) 5 Mg Tablet, 5 MG PO HS, (Reported) Entered as Reported by: VIRGEN TATUM on 10/18/21 1508 Metoprolol Succinate (Metoprolol Succinate) 100 Mg Tab.er.24h, 100 MG PO DAILY Prescribed by: YADIEL ARAUJO on 10/26/21 1000 Nitrofurantoin Monohyd/M-Cryst (Macrobid 100 mg Capsule) 100 Mg Capsule, 1 TAB PO BID Prescribed by: HARJIT RASHID on 03/11/22 1230 Pantoprazole Sodium (Pantoprazole Sodium) 40 Mg Tablet.dr, 40 MG PO BID, (Reported) Entered as Reported by: VIRGEN TATUM on 10/18/21 1508 Paroxetine HCl (Paroxetine HCl) 10 Mg Tablet, 10 MG PO HS, (Reported) Entered as Reported by: VIRGEN TATUM on 10/18/21 1508 Promethazine HCl (Promethazine Tablet) 25 Mg Tablet, 25 MG PO Q6H PRN for NAUSEA/VOMITING Prescribed by: HARJIT RASHID on 03/11/22 1230 Tramadol HCl (Tramadol HCl) 50 Mg Tablet, 25-50 MG PO TID PRN for PAIN-MODERATE (5-7) Prescribed by: YADIEL ARAUJO on 10/26/21 1206 Review of Systems Review of Systems Constitutional: see HPI EENTM: No Symptoms Reported Respiratory: No Symptoms Reported Cardiovascular: No Symptoms Reported Gastrointestinal: See HPI; Denies Abdominal Pain; Constipated, Nausea Genitourinary: No Symptoms Reported Musculoskeletal: no symptoms reported Skin: no symptoms reported Psychiatric/Neurological: No Symptoms Reported Endocrine: No Symptoms Reported Past Gmzapcu-Uidnnm-Mcqbuj Hx Patient Social History Tobacco Use?: No Use of E-Cig and/or Vaping dev: No Substance use?: No Alcohol Use?: No Immunizations Up To Date Tetanus Booster (TDap): More than 5yrs PED Vaccines UTD: Yes Influenza Vaccine Up-to-Date: No; Not Current First/Initial COVID19 Vaccinat: 2020 Second COVID19 Vaccination Bladimir: 2020 Third COVID19 Vaccination Date: NONE COVID19 Vaccine Train Operator: DIANN Seasonal Allergies Seasonal Allergies: No Past Medical History Surgeries: Yes (BLADDER SLING 1996;R CATARACT 10/13/20;L CATARACT 11/03/20) Bladder Surgery, Eye Surgery, 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, Orthopedic, Tonsillectomy Respiratory: No Cardiac: Yes (ORTHOSTASIS; BRADYCARDIA) High Cholesterol, Hypertension Neurological: Yes Dementia, TIA Reproductive Disorders: No Female Reproductive Disorders: Denies 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 History: 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, Menopausal Sexually Transmitted Disease: No HIV/AIDS: No Genitourinary: No Gastrointestinal: Yes Gastroesophageal Reflux, Chronic Constipation Musculoskeletal: Yes (FALLS, CHRONIC GENERALIZED PAIN ) Degenerate Disk Disease, Chronic Back Pain, Fractures Endocrine: Yes HEENT: Yes Cataract Loss of Vision: Bilateral Hearing Impairment: Denies Cancer: No Psychosocial: Yes Anxiety Integumentary: No Pruritis Blood Disorders: No Adverse Reaction/Blood Tranf: No Family Medical History Alzheimer's disease Arthritis Asthma Colon cancer Completed stroke Dementia Hypertension Myocardial infarction Visual disorder Cancer, Lung Disease, Other Conditions/Hx Physical Exam Vital Signs Vital Signs - First Documented 03/25/22 11:43 Temp 36.2 Pulse 73 Resp 20 B/P (MAP) 195/114 (141) Pulse Ox 99 O2 Delivery Room Air Capillary Refill : Less Than 3 Seconds Height/Weight/BMI Height: 5'5.00" Weight: 140lbs. 0.0oz. 63.506447fm; 22.00 BMI Method:Stated General Appearance: WD/WN, no apparent distress HEENT: PERRL/EOMI, normal ENT inspection Neck: non-tender, full range of motion Respiratory: no respiratory distress, no accessory muscle use Cardiovascular: regular rate, rhythm, no murmur Gastrointestinal: non tender, soft; No distended, No guarding, No rebound, No tenderness Extremities: normal range of motion, non-tender Neurologic/Psychiatric: alert, normal mood/affect, oriented x 3 Skin: normal color, warm/dry Progress/Results/Core Measures Results/Orders Lab Results Laboratory Tests Test 03/25/22 12:03 Range/Units White Blood Count 7.9 4.3-11.0 10^3/uL Red Blood Count 4.18 3.80-5.11 10^6/uL Hemoglobin 13.7 11.5-16.0 g/dL Hematocrit 41 35-52 % Mean Corpuscular Volume 97 80-99 fL Mean Corpuscular Hemoglobin 33 25-34 pg Mean Corpuscular Hemoglobin Concent 34 32-36 g/dL Red Cell Distribution Width 13.0 10.0-14.5 % Platelet Count 210 130-400 10^3/uL Mean Platelet Volume 10.3 9.0-12.2 fL Immature Granulocyte % (Auto) 0 % Neutrophils (%) (Auto) 57 42-75 % Lymphocytes (%) (Auto) 34 12-44 % Monocytes (%) (Auto) 6 0-12 % Eosinophils (%) (Auto) 1 0-10 % Basophils (%) (Auto) 1 0-10 % Neutrophils # (Auto) 4.5 1.8-7.8 10^3/uL Lymphocytes # (Auto) 2.7 1.0-4.0 10^3/uL Monocytes # (Auto) 0.5 0.0-1.0 10^3/uL Eosinophils # (Auto) 0.1 0.0-0.3 10^3/uL Basophils # (Auto) 0.1 0.0-0.1 10^3/uL Immature Granulocyte # (Auto) 0.0 0.0-0.1 10^3/uL Prothrombin Time 13.5 12.2-14.7 SEC INR Comment 1.0 0.8-1.4 Sodium Level 141 135-145 MMOL/L Potassium Level 4.4 3.6-5.0 MMOL/L Chloride Level 102 98-107 MMOL/L Carbon Dioxide Level 26 21-32 MMOL/L Anion Gap 13 5-14 MMOL/L Blood Urea Nitrogen 22 H 7-18 MG/DL Creatinine 1.57 H 0.60-1.30 MG/DL Estimat Glomerular Filtration Rate 33 BUN/Creatinine Ratio 14 Glucose Level 113 H 70-105 MG/DL Calcium Level 9.7 8.5-10.1 MG/DL Corrected Calcium 9.7 8.5-10.1 MG/DL Total Bilirubin 0.6 0.1-1.0 MG/DL Aspartate Amino Transf (AST/SGOT) 32 5-34 U/L Alanine Aminotransferase (ALT/SGPT) 17 0-55 U/L Alkaline Phosphatase 55 40-136 U/L Total Protein 7.4 6.4-8.2 GM/DL Albumin 4.0 3.2-4.5 GM/DL Lipase 26 8-78 U/L My [employer] - KIESHA JOYNER [employer]TER Cbc With Automated Diff (03/25/22 11:57) Comprehensive Metabolic Panel (03/25/22 11:57) Lipase (03/25/22 11:57) Protime With Inr (03/25/22 11:57) Ct Abdomen/Pelvis Wo (03/25/22 11:57) Ed Iv/Invasive Line Start (03/25/22 11:57) Ua Culture If Indicated (03/25/22 11:57) Ondansetron Injection (Zofran Injectio (03/25/22 12:15) Medications Given in ED Current Medications Medications Dose Ordered Sig/Deborah Route Start Time Stop Time Status Last Admin Dose Admin Ondansetron HCl 8 mg ONCE ONCE IVP 03/25/22 12:15 03/25/22 12:16 DC 03/25/22 12:24 8 MG Vital Signs/I&O 03/25/22 11:43 Temp 36.2 Pulse 73 Resp 20 B/P (MAP) 195/114 (141) Pulse Ox 99 O2 Delivery Room Air Blood Pressure Mean: 141 Departure Communication (Admissions) 1255-admitting to Dr. ARAUJO consult to Dr. Middleton from surgery and to will from urology. Going to use Rocephin based on most recent urine culture showing E. coli with sensitivity to Rocephin. Dr. Toure has recommended a CT cystogram which I have ordered. CT department called and they will do that later this afternoon. She also states that she has had a sore mouth recently and has been on nystatin without much improvement in symptoms. When I look at her mouth I do not see any ulcerations or erythema. I also do not see anything concerning for a candidal infection. We will give her some Maalox/viscous lidocaine to use on a as needed basis. I did discuss CODE STATUS with her, I asked if her heart stops that she want us to try to resuscitate her or "leave you be". She replies "just leave me be". Impression Primary Impression: Emphysematous cystitis Additional Impressions: Urinary tract infection Constipation Disposition: ADMITTED INPATIENT Condition: Stable Admissions Decision to Admit Reason: Admit from ER (General) Decision to Admit/Date: Mar 25, 2022 Departure-Patient Inst. Referrals: YADIEL ARAUJO DO (PCP/Family) Primary Care Physician KIESHA JOYNER APRN Mar 25, 2022 12:14
[2022-03-25] MEDS ORDERED: ONDANSETRON 4 MG/2 ML (SDV) Z0FRAN IVP ONE (12:15)
[2022-03-25 12:27] LABS: POTASSIUM 4.4 MMOL/L (3.6-5.0)
[2022-03-25 12:28] LABS: CALCIUM 9.7 MG/DL (8.5-10.1)
[2022-03-25 12:29] LABS: PROTHROMBIN TIME PATIENT 13.5 SEC (12.2-14.7); TOTAL PROTEIN 7.4 GM/DL (6.4-8.2)
[2022-03-25 12:31] LABS: BILIRUBIN,TOTAL 0.6 MG/DL (0.1-1.0)
[2022-03-25 12:33] LABS: CREATININE SERUM 1.57 MG/DL (0.60-1.30)
--- NOTE | 2022-03-25 12:36 | Diagnostic Imaging Report ---
EXAMINATION: CT abdomen and pelvis without contrast. TECHNIQUE: Multiple contiguous axial images were obtained through the abdomen and pelvis without the use of intravenous contrast. All CT scans use one or more of the following dose optimizing techniques: automated exposure control, MA and/or KvP adjustment based on patient size and exam type or iterative reconstruction. HISTORY: abd pain COMPARISON: 08/07/2021 FINDINGS: Lung bases: The lung bases are clear. Solid organs: The liver is normal. The gallbladder is surgically absent. Common bile duct is distended to 1.6 cm. This may be secondary to reservoir effect from prior cholecystectomy. Pancreas is normal. Spleen is normal. Adrenal glands are normal. The kidneys are normal without visualized calculus or hydronephrosis. Bowel: The stomach and small bowel are normal without obstruction. The colon is unremarkable. No findings of acute appendicitis. Peritoneum: No free fluid. There is free air anterior to the urinary bladder. No suspicious lymphadenopathy. Vasculature: Calcification of the aorta without aneurysm. Musculoskeletal: Surgical degenerative changes of the spine without suspicious osseous lesion or compression fracture. Pelvis: The uterus is surgically absent. No adnexal mass. Air within the bladder wall. IMPRESSION: 1. Air within the urinary bladder wall concerning for emphysematous cystitis. 2. There is free air within the pelvis anterior to the urinary bladder which could represent perforation of the urinary bladder or other hollow discus injury. Critical finding. Results communicated to Gilmar Cade by Dr. Simone Abdalla at 12:33 PM on 03/25/2022. Dictated by: Dictated on workstation # [id number]
[2022-03-25] MEDS ORDERED: LACTATED RINGERS 1,000 ML IV SCH (12:45)
[2022-03-25] MEDS ORDERED: cefTRIAXone 1 GM PRE-MIX 50 ML IV ONE (12:45)
[2022-03-25] MEDS ORDERED: ANTACID SUSP 30 ML UDC (MYLANTA) PO ONE (13:00)
[2022-03-25] MEDS ORDERED: LIDOCAINE 2% VISCOUS 15 ML UDC PO ONE (13:00)
[2022-03-25 13:05] LABS: BILIRUBIN,URINE NEGATIVE (NEGATIVE); CLARITY,URINE CLEAR; COLOR,URINE YELLOW; GLUCOSE, URINE (UA) NEGATIVE (NEGATIVE); KETONES,URINE NEGATIVE (NEGATIVE); LEUKOCYTE ESTERASE ,URINE NEGATIVE (NEGATIVE); NITRITE,URINE NEGATIVE (NEGATIVE); PROTEIN,URINE 3+ (NEGATIVE)
[2022-03-25 13:15] LABS: BACTERIA,URINE LARGE /HPF; RBC,URINE 0-2 /HPF; SQUAMOUS EPITHELIAL CELL,UR 0-2 /HPF
[2022-03-25] MEDS ORDERED: hydrALAZINE (APESOLINE) 20 MG/ML VIAL IV ONE (13:45)
--- NOTE | 2022-03-25 14:31 | Consultation - Surgery ---
CARLOS RODRIGUES 03/25/22 1431: History of Present Illness History of Present Illness Patient Consulted On(karina/time) 03/25/22 14:16 Date Seen by Provider: Mar 25, 2022 Time Seen by Provider: 14:00 History of Present Illness 81yo female presented to the [facility] with chief complaint of abdominal pain and N/V. Her last BM was reportedly 4 days ago, and she also attempted to do a fecal decompaction with her finger which did get stool out but did not help with the feeling of constipation. She claimed that she has had constipation for as long as she can remember, and that she thought it was just because she was getting older. However, she did endorse that her constipation and N/V has been getting worse, "since the start of summer". She did not know exactly when it started to get worse, but it has been for a couple of months. Previously she would only have intermittent bouts of N/V without any identifiable trigger, over the past months she said that almost every time she would get up from sitting or laying down she would have nausea and then vomit "greenish yellow" fluid. She has also been woken up in the middle of the night and had to vomit. She says that nothing makes the nausea better, while any food/drink and standing up makes the nausea worse. She came to [facility] two weeks ago with the same complaint as today and they gave her medication for the nausea as well as an antibiotic for a UTI. She is not in any pain currently, she just states she is in discomfort because her abdomen feels full. Her last episode of emesis was this morning. She also is experiencing a sore throat and mouth due to the vomiting. Allergies and Home Medications Allergies Coded Allergies: Milk Containing Products (Unverified Allergy, Unknown, 04/19/13) FROM UNCODED LIST codeine (Verified Allergy, Unknown, 10/11/20) erythromycin base (Unverified Allergy, Unknown, 08/29/06) metaxalone (Verified Allergy, Unknown, 10/11/20) Patient Home Medication List Acetaminophen (Tylenol Arthritis) 650 Mg Tablet.er, 1,300 MG PO BID, (Reported) Entered as Reported by: VIRGEN TATUM on 08/06/21 1005 Last Action: Reviewed Amlodipine Besylate (Amlodipine Besylate) 5 Mg Tablet, 2.5 MG PO DAILY, (Reported) Entered as Reported by: VIRGEN TATUM on 03/25/221528 Last Action: Reviewed Bupropion HCl (Bupropion Xl) 150 Mg Tab.er.24h, 150 MG PO DAILY, (Reported) Entered as Reported by: VIRGEN TATUM on 03/25/221528 Last Action: Reviewed Cholecalciferol (Vitamin D3) (Vitamin D3) 125 Mcg (5000 Unit) Tablet, 125 MCG PO DAILY, (Reported) Entered as Reported by: VIRGEN TATUM on 10/18/211507 Last Action: Reviewed Clonidine HCl (Clonidine HCl) 0.1 Mg Tablet, 0.1 MG PO BID, (Reported) Entered as Reported by: VIRGEN TATUM on 10/18/211507 Last Action: Reviewed Donepezil HCl (Donepezil HCl) 10 Mg Tablet, 10 MG PO HS, (Reported) Entered as Reported by: VIRGEN TATUM on 03/25/221528 Last Action: Reviewed Metoprolol Succinate (Metoprolol Succinate) 100 Mg Tab.er.24h, 100 MG PO DAILY, (Reported) Entered as Reported by: VIRGEN TATUM on 03/25/221528 Last Action: Reviewed Multivitamin with Minerals (Hair, Skin & Nails) 1 Each Tablet, 1 EACH PO DAILY, (Reported) Entered as Reported by: VIRGEN TATUM on 03/25/221528 Last Action: Reviewed Nystatin (Nystatin) 100,000 Unit/Ml Oral.susp, 5 ML PO QID, (Reported) Entered as Reported by: VIRGEN TATUM on 03/25/221528 Last Action: Reviewed Pantoprazole Sodium (Pantoprazole Sodium) 40 Mg Tablet.dr, 40 MG PO BID, (Reported) Entered as Reported by: VIRGEN TATUM on 10/18/211507 Last Action: Reviewed Tramadol HCl (Tramadol HCl) 50 Mg Tablet, 50 MG PO BID, (Reported) Entered as Reported by: VIRGEN TATUM on 03/25/221528 Last Action: Reviewed Discontinued Medications Amlodipine Besylate (Amlodipine Besylate) 5 Mg Tablet, 5 MG PO HS Discontinued Reason: Duplicate Order Prescribed by: YADIEL ARAUJO on 10/26/21 1000 Last Action: Discontinued Donepezil HCl (Donepezil HCl) 5 Mg Tablet, 5 MG PO HS, (Reported) Discontinued Reason: Duplicate Order Entered as Reported by: VIRGEN TATUM on 10/18/21 1508 Last Action: Discontinued Metoprolol Succinate (Metoprolol Succinate) 100 Mg Tab.er.24h, 100 MG PO DAILY Discontinued Reason: Duplicate Order Prescribed by: YADIEL ARAUJO on 10/26/21 1000 Last Action: Discontinued Nitrofurantoin Monohyd/M-Cryst (Macrobid 100 mg Capsule) 100 Mg Capsule, 1 TAB PO BID Discontinued Reason: No Longer Taking Prescribed by: HARJIT RASHID on 03/11/22 1230 Last Action: Discontinued Paroxetine HCl (Paroxetine HCl) 10 Mg Tablet, 10 MG PO HS, (Reported) Discontinued Reason: New Order Entered as Reported by: VIRGEN TATUM on 10/18/21 1508 Last Action: Discontinued Promethazine HCl (Promethazine Tablet) 25 Mg Tablet, 25 MG PO Q6H PRN for NAUSEA/VOMITING Discontinued Reason: No Longer Taking Prescribed by: HARJIT RASHID on 03/11/22 1230 Last Action: Discontinued Tramadol HCl (Tramadol HCl) 50 Mg Tablet, 25-50 MG PO TID PRN for PAIN-MODERATE (5-7) Discontinued Reason: Duplicate Order Prescribed by: YADIEL ARAUJO on 10/26/21 1206 Last Action: Discontinued Past [place]-Zgayby-Rmzfhk Hx Patient Social History Smoking Status: Never a Smoker Recent Hopitalizations: No Alcohol Use?: No Have you traveled recently?: No Immunizations Up To Date Tetanus Booster (TDap): More than 5yrs PED Vaccines UTD: Yes Date of Pneumonia Vaccine: Mar 30, 2008 Date of Influenza Vaccine: Mar 30, 2021 Seasonal Allergies Seasonal Allergies: No Surgeries History of Surgeries: Yes (BLADDER SLING 1996;R CATARACT 10/13/20;L CATARACT 11/03/20) Surgeries: Appendectomy, Bladder Surgery, Eye Surgery, 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, O rthopedic, Pacemaker, Tonsillectomy Respiratory History of Respiratory Disorde: No Cardiovascular History of Cardiac Disorders: Yes (ORTHOSTASIS; BRADYCARDIA) Cardiac Disorders: High Cholesterol, Hypertension Neurological History of Neurological Disord: Yes Neurological Disorders: Dementia, TIA Reproductive System Hx Reproductive Disorders: No Sexually Transmitted Disease: No HIV/AIDS: No Female Reproductive Disorders: Denies [employer]ON[employer]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 History: 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, Menopausal Genitourinary History of Genitourinary Disor: Yes (patient has a history of UTI, doesn't remember how many) Gastrointestinal History of Gastrointestinal Di: Yes Gastrointestinal Disorders: Gastroesophageal Reflux, Chronic Constipation Musculoskeletal History of Musculoskeletal Dis: Yes (FALLS, CHRONIC GENERALIZED PAIN ) Musculoskeletal Disorders: Degenerate Disk Disease, Chronic Back Pain, Fract ures Endocrine History of Endocrine Disorders: No HEENT History of HEENT Disorders: Yes HEENT Disorders: Cataract Loss of Vision: Bilateral Cancer History of Cancer: No Psychosocial History of Psychiatric Problem: Yes Behavioral Health Disorders: Anxiety, Depression (she has felt depressed since her last year) Integumentary History of Skin or Integumenta: No Blood Transfusions History of Blood Disorders: No Adverse Reaction to a Blood Tr: No Family Medical History Significant Family History: Cancer (mom diagnosed with ovarian cancer at age 71, passed age 72), Hypertension (mom and dad), Lung Disease (father had emphysema), Other Conditions/Hx (patient denied FH of T2DM, father had alzheimers diagnosed at 78, passed at 82, brother had lewy body dementia diagnosed in his 50s, passed early 60s) Family Medial History: Alzheimer's disease Arthritis Asthma Colon cancer Completed stroke Dementia Hypertension Myocardial infarction Visual disorder Review of Systems-General Constitutional: chills; No fever, No weight loss (denied any changes in weight, has went down a size in clothing since symptoms worsened) EENTM: mouth pain (associated with vomiting), throat pain (associated with vomiting), other (says she has not had any recent changes in vision) Respiratory: No cough; dyspnea on exertion (not currently, says she feels this way when she gets up from sitting/laying down), short of breath (not currently, says she feels this way when she gets up from sitting/laying down) Cardiovascular: No chest pain; Hx of Intervention Gastrointestinal: No abdominal pain; constipation; No hematemesis; loss of appetite, nausea (last episode was this AM), vomiting (last episode was this AM) Genitourinary: No dysuria, No frequency, No hematuria; incontinence (when she vomits she has noticed she will also urinate a small amount) Musculoskeletal: back pain (chronic), other (b/l leg pain associated with chronic lower back pain) Skin: dryness; No pruritus, No rash Psychiatric/Neurological: Denies Headache; Weakness Physical Exam-General Problems Physical Exam Vital Signs Vital Signs - First Documented 03/25/22 11:43 Temp 36.2 Pulse 73 Resp 20 B/P (MAP) 195/114 (141) Pulse Ox 99 O2 Delivery Room Air Capillary Refill : Less Than 3 Seconds General Appearance: WD/WN, no apparent distress HEENT: PERRL/EOMI; No pharyngeal erythema; other (no signs of thrush in mouth) Neck: non-tender, supple Respiratory: lungs clear, normal breath sounds, no respiratory distress, no accessory muscle use Cardiovascular: regular rate, rhythm, no murmur Peripheral Pulses: 2+ Dorsalis Pedis (R), 2+ Left Dors-Pedis (L), 2+ Radial Pulses (R), 2+ Radial Pulses (L) Gastrointestinal: normal bowel sounds, non tender, soft Back: no CVA tenderness, vertebral tenderness (endorsed pain when I palpated thoracic vertebrae, said she had not felt this before) Extremities: non-tender, no calf tenderness Neurologic/Psychiatric: alert, oriented x 3 Skin: normal color, warm/dry Lymphatic: no adenopathy (cervical) Data Review Labs Laboratory Tests 03/25/22 12:03: White Blood Count 7.9, Red Blood Count 4.18, Hemoglobin 13.7, Hematocrit 41, Mean Corpuscular Volume 97, Mean Corpuscular Hemoglobin 33, Mean Corpuscular Hemoglobin Concent 34, Red Cell Distribution Width 13.0, Platelet Count 210, Mean Platelet Volume 10.3, Immature Granulocyte % (Auto) 0, Neutrophils (%) (Auto) 57, Lymphocytes (%) (Auto) 34, Monocytes (%) (Auto) 6, Eosinophils (%) (Auto) 1, Basophils (%) (Auto) 1, Neutrophils # (Auto) 4.5, Lymphocytes # (Auto) 2.7, Monocytes # (Auto) 0.5, Eosinophils # (Auto) 0.1, Basophils # (Auto) 0.1, Immature Granulocyte # (Auto) 0.0, Prothrombin Time 13.5, INR Comment 1.0, Sodium Level 141, Potassium Level 4.4, Chloride Level 102, Carbon Dioxide Level 26, Anion Gap 13, Blood Urea Nitrogen 22H, Creatinine 1.57H, Estimat Glomerular Filtration Rate 33, BUN/Creatinine Ratio 14, Glucose Level 113H, Calcium Level 9.7, Corrected Calcium 9.7, Total Bilirubin 0.6, Aspartate Amino Transf (AST/SGOT) 32, Alanine Aminotransferase (ALT/SGPT) 17, Alkaline Phosphatase 55, Total Protein 7.4, Albumin 4.0, Lipase 26 03/25/22 12:48: Urine Color YELLOW, Urine Clarity CLEAR, Urine pH 6.0, Urine Specific Mullin 1.025H, Urine Protein 3+H, Urine Glucose (UA) NEGATIVE, Urine Ketones NEGATIVE, Urine Nitrite NEGATIVE, Urine Bilirubin NEGATIVE, Urine Urobilinogen 0.2, Urine Leukocyte Esterase NEGATIVE, Urine RBC (Auto) 2+H, Urine RBC 0-2, Urine WBC 5- 10H, Urine Squamous Epithelial Cells 0-2, Urine Crystals NONE, Urine Bacteria LARGEH, Urine Casts NONE, Urine Mucus NEGATIVE, Urine Culture Indicated YES 03/25/22 12:58: Lactic Acid Level 1.17 Assessment/Plan Assessment/Plan Assessment/Plan Constipation N/V UTI Emphysematous cystitis HTN Zofran PRN for nausea. Ceftriaxone for UTI coverage, will obtain urine culture and await sensitivity. Patient likely does not need any surgical intervention from a general surgery standpoint. CT does show potential for perforated bladder. Hydralazine for BP control. HERSON CARRENO DO 03/25/22 1546: History of Present Illness History of Present Illness Time Seen by Provider: 14:00 History of Present Illness Surgery asked to consult regarding abdominal pain and constipation. HPI per ED: To ER by private vehicle with reports of possible bowel obstruction. She was scheduled to see Dr. Jeong today but had to cancel due to her nausea and feeling ill. She has not had a bowel movement in 4 days. She has not been passing gas. She has had vomiting of bile. She denies any abdominal pain. She did do a digital disimpaction at home and got a stool ball out a few days ago. Still unable to have a bowel movement. No history of bowel obstructions. When I spoke to the pt in the ER, she was lying in bed and appeared very comfortable; NAD. She states she wasn't really having abdominal pain, just a fullness "up to my throat". She also complained of burning in her throat from throwing up bile. She states she did get relief from this "pressure" after ma nual disimpaction, but it didn't last long. I actually saw this pt regarding the exact same thing in March of 2019. She does not remember seeing a Urologist at that time or after, but also states she is very forgetful. Allergies and Home Medications Allergies Coded Allergies: Milk Containing Products (Unverified Allergy, Unknown, 04/19/13) FROM UNCODED LIST codeine (Verified Allergy, Unknown, 10/11/20) erythromycin base (Unverified Allergy, Unknown, 08/29/06) metaxalone (Verified Allergy, Unknown, 10/11/20) Patient Home Medication List Home Medication List Reviewed: Yes Acetaminophen (Tylenol Arthritis) 650 Mg Tablet.er, 1,300 MG PO BID, (Reported) Entered as Reported by: VIRGEN TATUM on 08/06/21 1005 Last Action: Reviewed Amlodipine Besylate (Amlodipine Besylate) 5 Mg Tablet, 2.5 MG PO DAILY, (Reported) Entered as Reported by: VIRGEN TATUM on 03/25/221528 Last Action: Reviewed Bupropion HCl (Bupropion Xl) 150 Mg Tab.er.24h, 150 MG PO DAILY, (Reported) Entered as Reported by: VIRGEN TATUM on 03/25/221528 Last Action: Reviewed Cholecalciferol (Vitamin D3) (Vitamin D3) 125 Mcg (5000 Unit) Tablet, 125 MCG PO DAILY, (Reported) Entered as Reported by: VIRGEN TATUM on 10/18/21 150 Last Action: Reviewed Clonidine HCl (Clonidine HCl) 0.1 Mg Tablet, 0.1 MG PO BID, (Reported) Entered as Reported by: VIRGEN TATUM on 10/18/21 150 Last Action: Reviewed Donepezil HCl (Donepezil HCl) 10 Mg Tablet, 10 MG PO HS, (Reported) Entered as Reported by: VIRGEN TATUM on 03/25/221528 Last Action: Reviewed Metoprolol Succinate (Metoprolol Succinate) 100 Mg Tab.er.24h, 100 MG PO DAILY, (Reported) Entered as Reported by: VIRGEN TATUM on 03/25/221528 Last Action: Reviewed Multivitamin with Minerals (Hair, Skin & Nails) 1 Each Tablet, 1 EACH PO DAILY, (Reported) Entered as Reported by: VIRGEN TATUM on 9/26/22 1529 Last Action: Reviewed Nystatin (Nystatin) 100,000 Unit/Ml Oral.susp, 5 ML PO QID, (Reported) Entered as Reported by: VIRGEN TATUM on 03/25/22 152 Last Action: Reviewed Pantoprazole Sodium (Pantoprazole Sodium) 40 Mg Tablet.dr, 40 MG PO BID, (Reported) Entered as Reported by: VIRGEN TATUM on 10/18/21 1508 Last Action: Reviewed Tramadol HCl (Tramadol HCl) 50 Mg Tablet, 50 MG PO BID, (Reported) Entered as Reported by: VIRGEN TATUM on 03/25/22 152 Last Action: Reviewed Discontinued Medications Amlodipine Besylate (Amlodipine Besylate) 5 Mg Tablet, 5 MG PO HS Discontinued Reason: Duplicate Order Prescribed by: YADIEL ARAUJO on 10/26/21 1000 Last Action: Discontinued Donepezil HCl (Donepezil HCl) 5 Mg Tablet, 5 MG PO HS, (Reported) Discontinued Reason: Duplicate Order Entered as Reported by: VIRGEN TATUM on 10/18/21 1508 Last Action: Discontinued Metoprolol Succinate (Metoprolol Succinate) 100 Mg Tab.er.24h, 100 MG PO DAILY Discontinued Reason: Duplicate Order Prescribed by: YADIEL ARAUJO on 10/26/21 1000 Last Action: Discontinued Nitrofurantoin Monohyd/M-Cryst (Macrobid 100 mg Capsule) 100 Mg Capsule, 1 TAB PO BID Discontinued Reason: No Longer Taking Prescribed by: HARJIT RASHID on 03/11/22 1230 Last Action: Discontinued Paroxetine HCl (Paroxetine HCl) 10 Mg Tablet, 10 MG PO HS, (Reported) Discontinued Reason: New Order Entered as Reported by: VIRGEN TATUM on 10/18/21 1508 Last Action: Discontinued Promethazine HCl (Promethazine Tablet) 25 Mg Tablet, 25 MG PO Q6H PRN for NAUSEA/VOMITING Discontinued Reason: No Longer Taking Prescribed by: HARJIT RASHID on 03/11/22 1230 Last Action: Discontinued Tramadol HCl (Tramadol HCl) 50 Mg Tablet, 25-50 MG PO TID PRN for PAIN-MODERATE (5-7) Discontinued Reason: Duplicate Order Prescribed by: YADIEL ARAUJO on 10/26/21 1206 Last Action: Discontinued Past Ioizrlk-Yermvz-Bltkbh Hx Patient Social History Smoking Status: Never a Smoker Alcohol Use?: No Surgeries History of Surgeries: Yes Surgeries: Appendectomy, Bladder Surgery, Eye Surgery, Gallbladder, 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, Orthopedic, Pacemaker, Tonsillectomy Respiratory History of Respiratory Disorde: No Cardiovascular History of Cardiac Disorders: Yes Cardiac Disorders: High Cholesterol, Hypertension Neurological History of Neurological Disord: Yes Neurological Disorders: Dementia, TIA Genitourinary History of Genitourinary Disor: Yes (patient has a history of UTI, doesn't remember how many) Genitourinary Disorders: UTI-Chronic Gastrointestinal History of Gastrointestinal Di: Yes Gastrointestinal Disorders: Gastroesophageal Reflux, Diverticulosis Musculoskeletal History of Musculoskeletal Dis: Yes Musculoskeletal Disorders: Arthritis Endocrine History of Endocrine Disorders: No HEENT History of HEENT Disorders: Yes HEENT Disorders: Cataract Cancer History of Cancer: No Psychosocial History of Psychiatric Problem: Yes Behavioral Health Disorders: Anxiety, Depression (she has felt depressed since her last year) Family Medical History Significant Family History: Cancer (mom diagnosed with ovarian cancer at age 71, passed age 72), Hypertension (mom and dad), Lung Disease (father had emphysema), Other Conditions/Hx (patient denied FH of T2DM, father had al zheimers diagnosed at 78, passed at 82, brother had lewy body dementia diagnosed in his 50s, passed early 60s) Family Medial History: Alzheimer's disease Arthritis Asthma Colon cancer Completed stroke Dementia Hypertension Myocardial infarction Visual disorder Review of Systems-General Constitutional: chills; No fever, No weight loss (denied any changes in weight, has went down a size in clothing since symptoms worsened) EENTM: mouth pain (associated with vomiting), throat pain (associated with vomiting), other (says she has not had any recent changes in vision) Respiratory: No cough; dyspnea on exertion (not currently, says she feels this way when she gets up from sitting/laying down), short of breath (not currently, says she feels this way when she gets up from sitting/laying down) Cardiovascular: No chest pain, No Hx of Intervention Gastrointestinal: No abdominal pain; constipation; No hematemesis; loss of appetite, nausea (last episode was this AM), vomiting (last episode was this AM) Genitourinary: No dysuria, No frequency, No hematuria; incontinence (when she vomits she has noticed she will also urinate a small amount) Musculoskeletal: other (b/l leg pain associated with chronic lower back pain) Skin: dryness; No pruritus, No rash Psychiatric/Neurological: Denies Headache; Weakness Physical Exam-General Problems Physical Exam General Appearance: WD/WN, no apparent distress Eyes: Bilateral Eye PERRL, Bilateral Eye EOMI HEENT: No scleral icterus (R), No scleral icterus (L), No pharyngeal erythema; other (no signs of thrush in mouth) Neck: non-tender, supple Respiratory: lungs clear, normal breath sounds, no respiratory distress, no accessory muscle use Cardiovascular: regular rate, rhythm, no murmur Gastrointestinal: non tender, soft, hernia (umbilical/incisional) Back: no CVA tenderness, vertebral tenderness (endorsed pain when I palpated thoracic vertebrae, said she had not felt this before) Extremities: non-tender, no calf tenderness Neurologic/Psychiatric: alert, oriented x 3 Skin: normal color, warm/dry Lymphatic: no adenopathy (neck, axilla or groin) Data Review Radiology Date of Exam:03/25/22 CT CYSTOGRAM EXAMINATION: CT pelvis without intravenous contrast. TECHNIQUE: Multiple contiguous axial images were obtained through the pelvis without the administration of intravenous contrast. Gastrografin contrast was administered through patient's Hudson catheter. All CT scans use one or more of the following dose optimizing techniques: Automated exposure control, MA and/or KvP adjustment based on patient size and exam type or iterative reconstruction. HISTORY: Emphysematous cystitis. COMPARISON: 03/25/2022. FINDINGS: There is no bowel obstruction. There are a few scattered colonic diverticula. There are vascular calcifications of the aorta without aneurysm. The osseous structures are intact. Soft tissues are unremarkable. The uterus is surgically absent. A right flank metallic device is present within the subcutaneous tissues. There are foci of free air seen within the pelvis surrounding the urinary bladder. Air is seen within the bladder wall as well as within the bladder lumen. No obvious extravasation of contrast is seen within the pelvis. IMPRESSION: 1. Redemonstrated findings of emphysematous cystitis without obvious extravasation of contrast from the urinary bladder to confirm perforation. 2. Persistent free air anterior and surrounding the urinary bladder. Dictated on workstation # [id number] Dict: 03/25/22 1526 Trans: 03/25/22 1535 [id number] Interpreted by: WALLY PAIGE DO Assessment/Plan Assessment/Plan Assessment/Plan Constipation N/V UTI Emphysematous cystitis HTN Zofran PRN for nausea. Ceftriaxone for UTI coverage, will obtain urine culture and await sensitivity. Patient likely does not need any surgical intervention from a general surgery standpoint. CT does show potential for perforated bladder. Hydralazine for BP control. Supervisory-Addendum Brief Verification & Attestation Participated in pt care: history, MDM, physical Personally performed: exam, history, MDM, supervision of care Care discussed with: Medical Student Procedures: n/a Verification and Attestation of Medical Student E/M Service A medical student performed and documented this service. I then reviewed and verified all information documented by the medical student and made modification s to such information, when appropriate. I personally performed a physical exam, medical decision making and then discussed any differences between the notes and made revisions as necessary to create one note. Herson Carreno , 03/25/22 , 15:50 CARLOS RODRIGUES Mar 25, 2022 14:31 HERSON CARRENO DO Mar 25, 2022 15:46
[2022-03-25 15:00] VITALS: BP 187/75
[2022-03-25] MEDS ORDERED: MULT-1054 PO (15:29)
[2022-03-25] MEDS ORDERED: TRAM50TA3 PO (15:29)
[2022-03-25] MEDS ORDERED: NYST1000 PO (15:29)
[2022-03-25] MEDS ORDERED: BUPR150T24 PO (15:29)
[2022-03-25] MEDS ORDERED: DONE10TA41 PO (15:29)
[2022-03-25] MEDS ORDERED: AMLO-250 PO (15:29)
[2022-03-25] MEDS ORDERED: MTP100TCR PO (15:29)
--- NOTE | 2022-03-25 15:36 | Diagnostic Imaging Report ---
EXAMINATION: CT pelvis without intravenous contrast. TECHNIQUE: Multiple contiguous axial images were obtained through the pelvis without the administration of intravenous contrast. Gastrografin contrast was administered through patient's Hudson catheter. All CT scans use one or more of the following dose optimizing techniques: Automated exposure control, MA and/or KvP adjustment based on patient size and exam type or iterative reconstruction. HISTORY: Emphysematous cystitis. COMPARISON: 03/25/2022. FINDINGS: There is no bowel obstruction. There are a few scattered colonic diverticula. There are vascular calcifications of the aorta without aneurysm. The osseous structures are intact. Soft tissues are unremarkable. The uterus is surgically absent. A right flank metallic device is present within the subcutaneous tissues. There are foci of free air seen within the pelvis surrounding the urinary bladder. Air is seen within the bladder wall as well as within the bladder lumen. No obvious extravasation of contrast is seen within the pelvis. IMPRESSION: 1. Redemonstrated findings of emphysematous cystitis without obvious extravasation of contrast from the urinary bladder to confirm perforation. 2. Persistent free air anterior and surrounding the urinary bladder. Dictated by: Dictated on workstation # [id number]
[2022-03-25] MEDS: LACTATED RINGERS 1,000 ML IV SCH (16:44)
[2022-03-25] MEDS: ONDANSETRON 4 MG/2 ML (SDV) Z0FRAN IV PRN ×2 (16:54→22:22)
[2022-03-25] MEDS ORDERED: PANTOPRAZOLE 40 MG (PROTONIX) VIAL IV NR (17:45)
[2022-03-25] MEDS ORDERED: amLODIPine 5 MG (NORVASC) TAB PO NR (17:45)
--- NOTE | 2022-03-25 18:17 | History & Physical ---
History of Present Illness History of Present Illness Reason for visit/HPI This is a 81 year old female who presented to the emergency room who presented to the emergency room with complaint of constipation and nausea and vomiting. 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 She will be admitted and started on IV rocephin with both urology and surgery consults. Date of Admission Mar 25, 2022 at 12:30 Date Seen by a Provider: Mar 25, 2022 Time Seen by a Provider: 18:10 I consulted on this patient on 03/25/22 18:10 Attending Physician Yadiel Hernandez DO Admitting Physician Admitting Physician: Yadiel Hernandez DO Attending Physician: Yadiel Hernandez DO Consult Allergies and Home Medications Allergies Coded Allergies: Milk Containing Products (Unverified Allergy, Unknown, 04/19/13) FROM UNCODED LIST codeine (Verified Allergy, Unknown, 10/11/20) erythromycin base (Unverified Allergy, Unknown, 08/29/06) metaxalone (Verified Allergy, Unknown, 10/11/20) Patient Home Medication List Home Medication List Reviewed: Yes Acetaminophen (Tylenol Arthritis) 650 Mg Tablet.er, 1,300 MG PO BID, (Reported) Entered as Reported by: VIRGEN TATUM on 08/06/21 1005 Last Action: Reviewed Amlodipine Besylate (Amlodipine Besylate) 5 Mg Tablet, 2.5 MG PO DAILY, (Reported) Entered as Reported by: VIRGEN TATUM on 03/25/22 1529 Last Action: Reviewed Bupropion HCl (Bupropion Xl) 150 Mg Tab.er.24h, 150 MG PO DAILY, (Reported) Entered as Reported by: VIRGEN TATUM on 03/25/22 1529 Last Action: Reviewed Cholecalciferol (Vitamin D3) (Vitamin D3) 125 Mcg (5000 Unit) Tablet, 125 MCG PO DAILY, (Reported) Entered as Reported by: VIRGEN TATUM on 10/18/21 1508 Last Action: Reviewed Clonidine HCl (Clonidine HCl) 0.1 Mg Tablet, 0.1 MG PO BID, (Reported) Entered as Reported by: VIRGEN TATUM on 10/18/21 1508 Last Action: Reviewed Donepezil HCl (Donepezil HCl) 10 Mg Tablet, 10 MG PO HS, (Reported) Entered as Reported by: VIRGEN TATUM on 03/25/221528 Last Action: Reviewed Metoprolol Succinate (Metoprolol Succinate) 100 Mg Tab.er.24h, 100 MG PO DAILY, (Reported) Entered as Reported by: VIRGEN ATTUM on 03/25/221528 Last Action: Reviewed Multivitamin with Minerals (Hair, Skin & Nails) 1 Each Tablet, 1 EACH PO DAILY, (Reported) Entered as Reported by: VIRGEN TATUM on 03/25/221528 Last Action: Reviewed Nystatin (Nystatin) 100,000 Unit/Ml Oral.susp, 5 ML PO QID, (Reported) Entered as Reported by: VIRGEN TATUM on 03/25/221528 Last Action: Reviewed Pantoprazole Sodium (Pantoprazole Sodium) 40 Mg Tablet.dr, 40 MG PO BID, (Reported) Entered as Reported by: VIRGEN TATUM on 10/18/21 150 Last Action: Reviewed Tramadol HCl (Tramadol HCl) 50 Mg Tablet, 50 MG PO BID, (Reported) Entered as Reported by: VIRGEN TATUM on 03/25/221528 Last Action: Reviewed Discontinued Medications Amlodipine Besylate (Amlodipine Besylate) 5 Mg Tablet, 5 MG PO HS Discontinued Reason: Duplicate Order Prescribed by: YADIEL HERNANDEZ on 10/26/21 1000 Last Action: Discontinued Donepezil HCl (Donepezil HCl) 5 Mg Tablet, 5 MG PO HS, (Reported) Discontinued Reason: Duplicate Order Entered as Reported by: VIRGEN TATUM on 10/18/21 150 Last Action: Discontinued Metoprolol Succinate (Metoprolol Succinate) 100 Mg Tab.er.24h, 100 MG PO DAILY Discontinued Reason: Duplicate Order Prescribed by: YADIEL HERNANDEZ on 10/26/21 1000 Last Action: Discontinued Nitrofurantoin Monohyd/M-Cryst (Macrobid 100 mg Capsule) 100 Mg Capsule, 1 TAB PO BID Discontinued Reason: No Longer Taking Prescribed by: HARJIT RASHID on 03/11/22 1230 Last Action: Discontinued Paroxetine HCl (Paroxetine HCl) 10 Mg Tablet, 10 MG PO HS, (Reported) Discontinued Reason: New Order Entered as Reported by: VIRGEN TATUM on 10/18/21 1508 Last Action: Discontinued Promethazine HCl (Promethazine Tablet) 25 Mg Tablet, 25 MG PO Q6H PRN for NAUSEA/VOMITING Discontinued Reason: No Longer Taking Prescribed by: HARJIT RASHID on 03/11/22 1230 Last Action: Discontinued Tramadol HCl (Tramadol HCl) 50 Mg Tablet, 25-50 MG PO TID PRN for PAIN-MODERATE (5-7) Discontinued Reason: Duplicate Order Prescribed by: YADIEL HERNANDEZ on 10/26/21 1206 Last Action: Discontinued Past [id number]-Prwhdi Hx Patient Social History Marrital Status: Tobacco Use?: No Smoking Status: Never a Smoker Smokeless Tobacco Frequency: Never a User Use of E-Cig and/or Vaping dev: No Use of E-Cig and/or Vaping Javier: Never a User Substance use?: No Alcohol Use?: No Pt feels they are or have been: No Immunizations Up To Date Date of Influenza Vaccine: Mar 30, 2021 First/Initial COVID19 Vaccinat: 2020 Second COVID19 Vaccination Bladimir: 2020 Tetanus Booster (TDap): More Than 5 Years Hepatitis A: No Hepatitis B: No PED Vaccines UTD: Yes Date of Pneumonia Vaccine: Mar 30, 2008 Seasonal Allergies Seasonal Allergies: No Current Status Advance Directives: Yes Advance Directive Location: Family to bring in copy Communicates: Verbally Primary Language: [place] Preferred Spoken Language: [place] Implanted or Applied Medical D: Pacemaker, Other Past Medical History Surgeries: Appendectomy, Bladder Surgery, Eye Surgery, Gallbladder, 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, Orthopedic, Pacemaker, Tonsillectomy High Cholesterol, Hypertension Dementia, 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, Menopausal Sexually Transmitted Disease: No HIV/AIDS: No UTI-Chronic Gastroesophageal Reflux, Diverticulosis Arthritis Cataract Loss of Vision: Bilateral Anxiety, Depression (she has felt depressed since her last year) Blood Disorders: No Adverse Reaction/Blood Tranf: No Family Medical History Alzheimer's disease Arthritis Asthma Colon cancer Completed stroke Dementia Hypertension Myocardial infarction Visual disorder Cancer (mom diagnosed with ovarian cancer at age 71, passed age 72), Hypertension (mom and dad), Lung Disease (father had emphysema), Other Conditions/Hx (patient denied FH of T2DM, father had alzheimers diagnosed at 78, passed at 82, brother had lewy body dementia diagnosed in his 50s, passed early 60s) Review of Systems Constitutional: weakness EENTM: No see HPI, No no symptoms reported, No ear discharge, No hearing loss, No ear pain, No blurred vision, No double vision, No eye pain, No tearing, No vision loss, No dental problems, No hoarseness, No mouth pain, No mouth swelling, No epistaxis, No nose congestion, No nose pain, No throat pain, No throat swelling, No other Respiratory: No no symptoms reported, No see HPI, No cough, No dyspnea on exertion, No hemoptysis, No orthopnea, No phlegm, No short of breath, No stridor, No wheezing, No other Cardiovascular: No no symptoms reported, No see HPI, No chest pain, No edema, No Hx of Intervention, No palpitations, No syncope, No vascular heart diseas, No other Gastrointestinal: constipation, loss of appetite, nausea, vomiting Genitourinary: frequency Musculoskeletal: back pain, muscle weakness Skin: No no symptoms reported, No see HPI, No change in color, No change in hair/nails, No dryness, No hx of skin cancer, No lesions, No lumps, No pruritus, No rash, No other Psychiatric/Neurological: Anxiety, Depressed, Weakness Physical Exam Vital Signs Vital Signs - First Documented 03/25/22 11:43 Temp 36.2 Pulse 73 Resp 20 B/P (MAP) 195/114 (141) Pulse Ox 99 O2 Delivery Room Air Capillary Refill : Less Than 3 Seconds Height, Weight, BMI Height: 5'5.00" Weight: 140lbs. 0.0oz. [id number]; 22.76 BMI Method:Stated General Appearance: No Apparent Distress HEENT: Normal ENT Inspection Neck: Supple Respiratory: Lungs Clear Cardiovascular: Regular Rate, Rhythm, Gallop/S4 Gastrointestinal: Normal Bowel Sounds, Soft, Tenderness (suprapubic/LLQ) Rectal: Deferred Back: No CVA Tenderness Extremity: Non Tender, No Calf Tenderness, No Pedal Edema Neurologic/Psychiatric: Alert, Oriented x3 Skin: Warm/Dry Comments Laboratory Tests 03/25/22 12:03: White Blood Count 7.9, Red Blood Count 4.18, Hemoglobin 13.7, Hematocrit 41, Mean Corpuscular Volume 97, Mean Corpuscular Hemoglobin 33, Mean Corpuscular Hemoglobin Concent 34, Red Cell Distribution Width 13.0, Platelet Count 210, Mean Platelet Volume 10.3, Immature Granulocyte % (Auto) 0, Neutrophils (%) (Auto) 57, Lymphocytes (%) (Auto) 34, Monocytes (%) (Auto) 6, Eosinophils (%) (Auto) 1, Basophils (%) (Auto) 1, Neutrophils # (Auto) 4.5, Lymphocytes # (Auto) 2.7, Monocytes # (Auto) 0.5, Eosinophils # (Auto) 0.1, Basophils # (Auto) 0.1, Immature Granulocyte # (Auto) 0.0, Prothrombin Time 13.5, INR Comment 1.0, Sodium Level 141, Potassium Level 4.4, Chloride Level 102, Carbon Dioxide Level 26, Anion Gap 13, Blood Urea Nitrogen 22H, Creatinine 1.57H, Estimat Glomerular Filtration Rate 33, BUN/Creatinine Ratio 14, Glucose Level 113H, Calcium Level 9.7, Corrected Calcium 9.7, Total Bilirubin 0.6, Aspartate Amino Transf (AST/SGOT) 32, Alanine Aminotransferase (ALT/SGPT) 17, Alkaline Phosphatase 55, Total Protein 7.4, Albumin 4.0, Lipase 26 03/25/22 12:48: Urine Color YELLOW, Urine Clarity CLEAR, Urine pH 6.0, Urine Specific [place] 1.025H, Urine Protein 3+H, Urine Glucose (UA) NEGATIVE, Urine Ketones NEGATIVE, Urine Nitrite NEGATIVE, Urine Bilirubin NEGATIVE, Urine Urobilinogen 0.2, Urine Leukocyte Esterase NEGATIVE, Urine RBC (Auto) 2+H, Urine RBC 0-2, Urine WBC 5- 10H, Urine Squamous Epithelial Cells 0-2, Urine Crystals NONE, Urine Bacteria LARGEH, Urine Casts NONE, Urine Mucus NEGATIVE, Urine Culture Indicated YES 03/25/22 12:58: Lactic Acid Level 1.17 Assessment/Plan Assessment and Plan 1. Acute UTI/Emphysematous Cystitis--admit for IV rocephin and urology consult 2. Pelvic Free Air--surgery consult 3. Obstipation--start miralax 4. Dyspepsia with Intractable Nausea/Vomiting--IV protonix with IV zofran prn 5. Hypertension--resume home metoprolol, clonidine and amlodopine 6. Weakness--will start PT 7. Depression--resume Wellbutrin Admission Diagnosis Admission Status: Inpatient Order (span 2 midnights) Reason for Inpatient Admission: Will need IV abx and surgical/urological consults YADIEL HERNANDEZ DO Mar 25, 2022 18:17
[2022-03-25 19:46] VITALS: BP 157/79
[2022-03-25] MEDS: cloNIDine 0.1 MG (CATAPRES) TAB PO SCH (20:12)
[2022-03-25] MEDS: polyethylene glycoL POWDER 17 GM (MIRALAX) PACK PO SCH (20:13)
[2022-03-26] VITALS (7 sets, daily range): BP systolic 134–169; BP diastolic 76–93
[2022-03-26] MEDS: LACTATED RINGERS 1,000 ML IV SCH ×3 (05:26→23:49)
[2022-03-26 05:50] LABS: BASOPHILS # (AUTO) 0.1 10^3/uL (0.0-0.1); BASOPHILS % (AUTO) 1 % (0-10); EOSINOPHILS # (AUTO) 0.1 10^3/uL (0.0-0.3); EOSINOPHILS % (AUTO) 1 % (0-10); HEMATOCRIT 36 % (35-52); LYMPHOCYTES # (AUTO) 2.9 10^3/uL (1.0-4.0); LYMPHOCYTES % (AUTO) 42 % (12-44); MEAN CORPUSCULAR HEMOGLOBIN 33 pg (25-34); MEAN CORPUSCULAR HGB CONC 34 g/dL (32-36); MEAN CORPUSCULAR VOLUME 98 fL (80-99); MEAN PLATELET VOLUME 10.6 fL (9.0-12.2); MONOCYTES # (AUTO) 0.7 10^3/uL (0.0-1.0); MONOCYTES % (AUTO) 10 % (0-12); NEUTROPHILS # (AUTO) 3.2 10^3/uL (1.8-7.8); NEUTROPHILS % (AUTO) 47 % (42-75); PLATELET COUNT 159 10^3/uL (130-400); WHITE BLOOD COUNT 6.9 10^3/uL (4.3-11.0)
[2022-03-26 06:06] LABS: CALCIUM 9.1 MG/DL (8.5-10.1); CREATININE SERUM 1.54 MG/DL (0.60-1.30); POTASSIUM 4.2 MMOL/L (3.6-5.0)
--- NOTE | 2022-03-26 08:09 | Progress Note - Surgery ---
CARLOS RODRIGUES 03/26/22 0809: Subjective Date Seen by a Provider: Mar 26, 2022 Time Seen by a Provider: 07:07 Subjective/Events-last exam Patient says she feels about the same as yesterday. Has not had a BM and is not having flatus. She has a berrios in place and endorses no discomfort with it. She claims she is not in any pain, she just feels uncomfortable. She has not experienced any N/V since yesterday. Review of Systems Pulmonary: No Dyspnea, No Cough Cardiovascular: No: Chest Pain, Palpitations Gastrointestinal: Constipation; No: Nausea, Vomiting, Abdominal Pain Genitourinary: No Dysuria, No Hematuria; Other (berrios in place) Focused Exam Lactate Level 03/25/22 12:58: Lactic Acid Level 1.17 Objective Exam Vital Signs Date Time Temp Pulse Resp B/P (MAP) Pulse Ox O2 Delivery O2 Flow Rate FiO2 03/26/22 07:23 36.0 60 18 147/84 (105) 95 Room Air 03/26/22 04:02 36.6 89 18 169/93 (118) 96 Room Air 03/26/22 00:04 36.1 64 18 134/76 (95) 94 Room Air 03/25/22 21:00 Room Air 03/25/22 19:46 36.5 63 18 157/79 (105) 97 Room Air 03/25/22 15:00 36.3 63 19 187/75 (112) 98 Room Air 03/25/22 14:48 Room Air 03/25/22 14:14 68 16 98 Room Air 03/25/22 11:43 36.2 73 20 195/114 (141) 99 Room Air I & O 03/26/22 07:00 Intake Total 1020 ml Output Total 1700 ml Balance -680 ml Capillary Refill : Less Than 3 Seconds General Appearance: No Apparent Distress, WD/WN HEENT: PERRL/EOMI, Moist Mucous Membranes Neck: Non Tender, Supple Respiratory: Lungs Clear, Normal Breath Sounds, No Accessory Muscle Use, No Respiratory Distress Cardiovascular: Regular Rate, Rhythm, No Murmur Peripheral Pulses: 2+ Dorsalis Pedis (R), 2+ Left Dors-Pedis (L), 2+ Radial Pulses (R), 2+ Radial Pulses (L) Gastrointestinal: non tender, soft, hernia (umbilical/incisional) Extremity: Non Tender, No Calf Tenderness, Other (compression socks b/l) Neurologic/Psychiatric: Alert, Oriented x3 Skin: Normal Color, Warm/Dry Lymphatic: No Adenopathy (cervical) Results Lab Laboratory Tests 03/25/22 12:03: White Blood Count 7.9, Red Blood Count 4.18, Hemoglobin 13.7, Hematocrit 41, Mean Corpuscular Volume 97, Mean Corpuscular Hemoglobin 33, Mean Corpuscular Hemoglobin Concent 34, Red Cell Distribution Width 13.0, Platelet Count 210, Mean Platelet Volume 10.3, Immature Granulocyte % (Auto) 0, Neutrophils (%) (Auto) 57, Lymphocytes (%) (Auto) 34, Monocytes (%) (Auto) 6, Eosinophils (%) (Auto) 1, Basophils (%) (Auto) 1, Neutrophils # (Auto) 4.5, Lymphocytes # (Auto) 2.7, Monocytes # (Auto) 0.5, Eosinophils # (Auto) 0.1, Basophils # (Auto) 0.1, Immature Granulocyte # (Auto) 0.0, Prothrombin Time 13.5, INR Comment 1.0, Sodium Level 141, Potassium Level 4.4, Chloride Level 102, Carbon Dioxide Level 26, Anion Gap 13, Blood Urea Nitrogen 22H, Creatinine 1.57H, Estimat Glomerular Filtration Rate 33, BUN/Creatinine Ratio 14, Glucose Level 113H, Calcium Level 9.7, Corrected Calcium 9.7, Total Bilirubin 0.6, Aspartate Amino Transf (AST/SGOT) 32, Alanine Aminotransferase (ALT/SGPT) 17, Alkaline Phosphatase 55, Total Protein 7.4, Albumin 4.0, Lipase 26 03/25/22 12:48: Urine Color YELLOW, Urine Clarity CLEAR, Urine pH 6.0, Urine Specific [place] 1.025H, Urine Protein 3+H, Urine Glucose (UA) NEGATIVE, Urine Ketones NEGATIVE, Urine Nitrite NEGATIVE, Urine Bilirubin NEGATIVE, Urine Urobilinogen 0.2, Urine Leukocyte Esterase NEGATIVE, Urine RBC (Auto) 2+H, Urine RBC 0-2, Urine WBC 5- 10H, Urine Squamous Epithelial Cells 0-2, Urine Crystals NONE, Urine Bacteria LARGEH, Urine Casts NONE, Urine Mucus NEGATIVE, Urine Culture Indicated YES 03/25/22 12:58: Lactic Acid Level 1.17 03/26/22 05:25: White Blood Count 6.9, Red Blood Count 3.64L, Hemoglobin 12.0, Hematocrit 36, Mean Corpuscular Volume 98, Mean Corpuscular Hemoglobin 33, Mean Corpuscular Hemoglobin Concent 34, Red Cell Distribution Width 13.0, Platelet Count 159, Mean Platelet Volume 10.6, Immature Granulocyte % (Auto) 0, Neutrophils (%) (Auto) 47, Lymphocytes (%) (Auto) 42, Monocytes (%) (Auto) 10, Eosinophils (%) (Auto) 1, Basophils (%) (Auto) 1, Neutrophils # (Auto) 3.2, Lymphocytes # (Auto) 2.9, Monocytes # (Auto) 0.7, Eosinophils # (Auto) 0.1, Basophils # (Auto) 0.1, Immature Granulocyte # (Auto) 0.0, Sodium Level 142, Potassium Level 4.2, Chloride Level 106, Carbon Dioxide Level 25, Anion Gap 11, Blood Urea Nitrogen 22H, Creatinine 1.54H, Estimat Glomerular Filtration Rate 33, BUN/Creatinine Ratio 14, Glucose Level 82, Calcium Level 9.1 Microbiology 03/25/22 Urine Culture - Preliminary, Resulted Gram Negative Jose R Assessment/Plan Assessment/Plan Assessment/Plan Constipation N/V- improved UTI- ceftriaxone administered Emphysematous cystitis HTN Will try miralax for constipation. Zofran PRN for nausea. Urine culture was positive for gram negative jose r, await sensitivity. Patient likely does not need any surgical intervention from a general surgery standpoint. Resume home metoprolol, clonidine and amlodopine for BP control. HERSON CARRENO DO 03/26/22 1148: Subjective Time Seen by a Provider: 11:16 Subjective/Events-last exam Pt seen and examined, states she feels about the same. Still has "pressure going from my stomach up to mouth" and feels acid/pain in the back of her throat. Drinking very minimal clears. She states everytime she sits up she feels the pressure coming up her throat and feels dizzy. Review of Systems General: Fatigue, Malaise Pulmonary: No Dyspnea, No Cough Cardiovascular: No: Chest Pain, Palpitations Gastrointestinal: Nausea, Abdominal Pain (more of a pressure), Constipation; No: Vomiting Genitourinary: No Dysuria, No Hematuria; Other (berrios in place) Objective Exam General Appearance: No Apparent Distress, WD/WN HEENT: PERRL/EOMI, Moist Mucous Membranes Respiratory: Lungs Clear, Normal Breath Sounds, No Accessory Muscle Use, No Respiratory Distress Cardiovascular: Regular Rate, Rhythm, No Murmur Gastrointestinal: non tender, soft, hernia (umbilical/incisional) Extremity: Non Tender, No Calf Tenderness, Other (compression socks b/l) Assessment/Plan Assessment/Plan Assessment/Plan Dehydration Constipation N/V- not worse and no vomiting, but still "kind of nauseous" and taking Zofran UTI- ceftriaxone administered Emphysematous cystitis HTN Will bump up her fluids to 150ml/hr for 8 hours, she is dehydrated and not taking much PO. Will try miralax for constipation. Zofran PRN for nausea. Urine culture was positive for gram negative jose r, await sensitivity. Patient likely does not need any surgical intervention from a general surgery standpoint. R esume home metoprolol, clonidine and amlodopine for BP control. Supervisory-Addendum Brief Verification & Attestation Participated in pt care: history, MDM, physical Personally performed: exam, history, MDM, supervision of care Care discussed with: Medical Student Procedures: n/a Verification and Attestation of Medical Student E/M Service A medical student performed and documented this service. I then reviewed and verified all information documented by the medical student and made modifications to such information, when appropriate. I personally performed a physical exam, medical decision making and then discussed any differences between the notes and made revisions as necessary to create one note. Herson Carreno , 03/26/22 , 11:48 CARLOS RODRIGUES Mar 26, 2022 08:09 HERSON CARRENO DO Mar 26, 2022 11:48
[2022-03-26] MEDS ORDERED: PANTOPRAZOLE 40 MG (PROTONIX) VIAL IV SCH (09:00)
[2022-03-26] MEDS: buPROPion SR 150 MG (WELLBUTRIN SR) TAB PO SCH (09:30)
[2022-03-26] MEDS: cloNIDine 0.1 MG (CATAPRES) TAB PO SCH ×2 (09:30→20:26)
[2022-03-26] MEDS: meTOprolol SUCCINATE 100 MG (TOPROL XL) TAB PO SCH (09:31)
[2022-03-26] MEDS: cefTRIAXone 1 GM/50 ML (PRE-MIX) IV SCH (09:31)
[2022-03-26] MEDS ORDERED: LACTATED RINGERS 1,000 ML IV SCH (12:00)
--- NOTE | 2022-03-26 13:07 | Progress Note ---
Subjective Date Seen by a Provider: Mar 26, 2022 Time Seen by a Provider: 13:04 Subjective/Events-last exam Fwup UTI, emphysematous cystitis, constipation, HTN, weakness, Dyspepsia. Upset stomach this morning. Still no BM. Focused Exam Lactate Level 03/25/22 12:58: Lactic Acid Level 1.17 Objective Exam Vital Signs Date Time Temp Pulse Resp B/P (MAP) Pulse Ox O2 Delivery O2 Flow Rate FiO2 03/26/22 11:18 36.1 61 18 148/82 (104) 97 Room Air 03/26/22 08:04 Room Air 03/26/22 07:23 36.0 60 18 147/84 (105) 95 Room Air 03/26/22 04:02 36.6 89 18 169/93 (118) 96 Room Air 03/26/22 00:04 36.1 64 18 134/76 (95) 94 Room Air 03/25/22 21:00 Room Air 03/25/22 19:46 36.5 63 18 157/79 (105) 97 Room Air 03/25/22 15:00 36.3 63 19 187/75 (112) 98 Room Air 03/25/22 14:48 Room Air 03/25/22 14:14 68 16 98 Room Air I & O 03/26/22 07:00 Intake Total 1020 ml Output Total 1700 ml Balance -680 ml Capillary Refill : Less Than 3 Seconds General Appearance: No Apparent Distress Neck: Supple Respiratory: Lungs Clear Cardiovascular: Regular Rate, Rhythm Gastrointestinal: normal bowel sounds, non tender, soft Extremity: Non Tender, No Calf Tenderness, No Pedal Edema Neurologic/Psychiatric: Alert, Oriented x3 Results Lab Laboratory Tests 03/26/22 05:25: White Blood Count 6.9, Red Blood Count 3.64L, Hemoglobin 12.0, Hematocrit 36, Mean Corpuscular Volume 98, Mean Corpuscular Hemoglobin 33, Mean Corpuscular Hemoglobin Concent 34, Red Cell Distribution Width 13.0, Platelet Count 159, Mean Platelet Volume 10.6, Immature Granulocyte % (Auto) 0, Neutrophils (%) (Auto) 47, Lymphocytes (%) (Auto) 42, Monocytes (%) (Auto) 10, Eosinophils (%) (Auto) 1, Basophils (%) (Auto) 1, Neutrophils # (Auto) 3.2, Lymphocytes # (Auto) 2.9, Monocytes # (Auto) 0.7, Eosinophils # (Auto) 0.1, Basophils # (Auto) 0.1, Immature Granulocyte # (Auto) 0.0, Sodium Level 142, Potassium Level 4.2, Chloride Level 106, Carbon Dioxide Level 25, Anion Gap 11, Blood Urea Nitrogen 22H, Creatinine 1.54H, Estimat Glomerular Filtration Rate 33, BUN/Creatinine Ratio 14, Glucose Level 82, Calcium Level 9.1 Microbiology 03/25/22 Urine Culture - Preliminary, Resulted Gram Negative Jose R Assessment/Plan Assessment/Plan Assess & Plan/Chief Complaint 1. UTI/Emphysematous Cystitis--continue rocephin, no cystoscopy needed per urology, just treat infection 2. Constipation--add MOM, continue miralax, increase activity 3. Hypertension--stable 4. Dyspepsia--Increase protonix to BID 5. Weakness--start PT Clinical Quality Measures Admission Status Admission Dx 1. Acute UTI/Emphysematous Cystitis--admit for IV rocephin and urology consult 2. Pelvic Free Air--surgery consult 3. Obstipation--start miralax 4. Dyspepsia with Intractable Nausea/Vomiting--IV protonix with IV zofran prn 5. Hypertension--resume home metoprolol, clonidine and amlodopine 6. Weakness--will start PT 7. Depression--resume WellbutYADIEL Salazar DO Mar 26, 2022 13:07
[2022-03-26] MEDS ORDERED: MILK OF MAGNESIA 400 MG/5 ML 30 ML UDC PO PRN (13:15)
[2022-03-26] MEDS ORDERED: MILK OF MAGNESIA 400 MG/5 ML 30 ML UDC PO NR (13:15)
--- NOTE | 2022-03-26 13:43 | Physical Therapy Evaluation ---
PT Evaluation-General Medical Diagnosis Admission Date Mar 25, 2022 at 12:30 Medical Diagnosis: constipation/UTI Onset Date: Mar 25, 2022 Therapy Diagnosis Therapy Diagnosis: debility/weakness Height/Weight Height (Feet): 5 Height (Inches): 5.00 Weight (Pounds): 140 Weight (Ounces): 0.0 Precautions Precautions/Isolations: Standard Precautions Referral Physician: Mary Reason for Referral: Evaluation/Treatment Medical History Pertinent Medical History: HTN, Hypothroidism, Renal Insufficiency History of Falls (past yr): No Prior Surgery (last 100 days): No Additional Medical History pacemaker Current History ER secondary to abdominal pain/constipation Reviewed History: Yes Social History Home: Single Level Current Living Status: Alone Entry Into Home: Stairs With Railing PT Steps Into Home: 6 Prior Prior Level of Function SCALE: Activities may be completed with or without assistive devices. 9-Geoqhwidsx-jpstvsh completes the activity by him/herself with no assistance from a helper. 5-Set-up or Clean-up Assistance-helper sets up or cleans up; patient completes activity. [place] assists only prior to or following the activity. 4-Supervision or Touching Assistance-helper provides verbal cues and/or touching/steadying and/or contact guard assistance as patient completes activity. Assistance may be provided throughout the activity or intermittently. 3-Partial/Moderate Assistance-helper does LESS THAN HALF the effort. [place] lifts, holds or supports trunk or limbs, but provides less than half the effort. 2-Substantial/Maximal Assistance-helper does MORE THAN HALF the effort. [place] lifts or holds trunk or limbs and provides more than half the effort. 1-Ojpnroboi-pfresu does ALL the effort. Patient does none of the effort to complete the activity. Or, the assistance of 2 or more helpers is required for the patient to complete the activity. If activity was not attempted, code reason: 7-Patient Refused. 9-Not Applicable-not attempted and the patient did not perform the activity before the current illness, exacerbation or injury. 10-Not Attempted due to Environmental Limitations-(lack of equipment, weather restraints, etc.). 88-Not Attempted due to Medical Conditions or Safety Concerns. Bed Mobility: 6 Transfers (B,C,W/C): 6 Gait: 6 Stairs: 6 Indoor Mobility (Ambulation): Independent Stairs: Independent Prior Devices Use: None PT Evaluation-Current Subjective Patient agrees to PT. Continues to c/o abdominal discomfort, N&V. Pain Numeric Pain Scale: 5-Moderate Pain Location: Lower Location Body Site: Abdomen Pain Description: Pressure Objective Patient Orientation: Normal For Age Attachments: Hudson Catheter, IV ROM/Strength ROM Lower Extremities bilateral LE WFL Strength Lower Extremities 4-/5 grossly bilateral LE all planes Integumentary/Posture Bowel Incontinence: No Bladder Incontinence: Hudson Cath Posture WFL Neuromuscular (Tone, Coordination, Reflexes) grossly intact Sensory Vision: Wears Glasses Hearing: Functional Transfers Sit to Lying (QC): 6 Lying to Sitting/Side of Bed(Q: 6 Sit to Stand (QC): 4 Gait Mode of Locomotion: Walk Anticipated Mode of Locomotion: Walk Walk 10 feet (QC): 4 Walk 50 ft with 2 Turns(QC): 4 Walk 150 ft (QC): 4 Distance: 250' Gait Assistive Device: FWW Comments/Gait Description safe and functional with no deviation Balance Sitting Static: Normal Sitting Dynamic: Normal Standing Static: Normal Standing Dynamic: Normal Assessment/Needs Patient will be seen short term by skilled PT to address functional strength and mobility to ensure safe return to home at maximum LOF. Rehab Potential: Fair PT Jail Goals Synthetic Cloth Binding Cutter Goals PT Jail Goals Time Frame: Apr 06, 2022 Roll Left & Right (QC): 6 Sit to Lying (QC): 6 Lying-Sitting on Side/Bed(QC): 6 Sit to Stand (QC): 6 Chair/Ulw-zg-Avdyt Xfer(QC): 6 Toilet Transfer (QC): 6 Walk 10 feet (QC): 6 Walk 50ft with 2 Turns (QC): 6 Walk 150 ft (QC): 6 PT Plan Problem List Problem List: Activity Tolerance Treatment/Plan Treatment Plan: Continue Plan of Care Treatment Plan: Education, Functional Activity Usman, Functional Strength, Gait, Safety, Therapeutic Exercise, Transfers Treatment Duration: Apr 06, 2022 Frequency: 6 times per week Estimated Hrs Per Day: .25 hour per day Patient and/or Family Agrees t: Yes Time/GCodes Time In: 1315 Time Out: 1332 Total Billed Treatment Time: 17 Total Billed Treatment 1 visit EVModC 17 min ANAID BOSE PT Mar 26, 2022 13:43
--- NOTE | 2022-03-26 15:34 | CONSULTATION REPORT ---
DATE OF SERVICE: 03/26/2022 ATTENDING PHYSICIAN: Dr. Hernandez. SUMMARY: After reviewing the patient's record, interviewing her and examining her, this is a pleasant young 81-year-old lady, who presented to the emergency room with history of constipation for 4 and 5 days, nausea, vomiting, and some urinary symptoms. She was found by the CT scan to have what looks like emphysematous cystitis, but also air anterior and outside the bladder. I told the emergency room to get a CT cystogram that revealed no extravasation, no perforation, and no fistula. She denies any GI symptoms before or diverticulitis. She admits to mixed incontinence with overactive bladder and what sounded like a possible ISD. Her abdomen is soft and nontender. Her UA was positive. She is on the proper antibiotic pending results of the cultures. IMPRESSION: 1. 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 2. Mixed incontinence with overactive bladder with possible ISD. 3. Constipation, nausea, and vomiting. PLAN: Continue present management urology lam, await the general surgery consultation by Dr. Jeong and later on, I told her if she wants to address the incontinence issue, I would be happy to do that at the office as an outpatient. This was fully explained to her and all her questions were answered. CC: Gilmar Cade - requested, unable to deliver. Job ID: [id number] DocumentID: [id number] Dictated Date: 03/26/2022 09:20:54 Phototypesetter Operator Date: 03/26/2022 10:20:20 Dictated By: JENNYFER CRANE MD
[2022-03-26] MEDS: polyethylene glycoL POWDER 17 GM (MIRALAX) PACK PO SCH (20:26)
[2022-03-26] MEDS: PANTOPRAZOLE 40 MG (PROTONIX) VIAL IV SCH (20:26)
[2022-03-27] VITALS (7 sets, daily range): BP systolic 163–199; BP diastolic 76–92
[2022-03-27] MEDS: cloNIDine 0.1 MG (CATAPRES) TAB PO SCH ×2 (08:38→20:36)
[2022-03-27] MEDS: buPROPion SR 150 MG (WELLBUTRIN SR) TAB PO SCH (08:38)
[2022-03-27] MEDS: cefTRIAXone 1 GM/50 ML (PRE-MIX) IV SCH (08:38)
[2022-03-27] MEDS: PANTOPRAZOLE 40 MG (PROTONIX) VIAL IV SCH ×2 (08:38→20:38)
[2022-03-27] MEDS: meTOprolol SUCCINATE 100 MG (TOPROL XL) TAB PO SCH (08:39)
--- NOTE | 2022-03-27 09:49 | Physical Therapy Daily Note ---
PT Daily Note-Current Subjective Patient in bed pre tx, agrees to PT, has mild abdominal discomfort Pain Section J - Health Conditions 1. Rarely or not at all 2. Occasionally 3. Frequently 4. Almost constantly 8. Unable to answer Pain Effect on Sleep: 1 Pain Interference with Therapy: 1 Pain Interference w/Day-to-Day: 1 Appearance Patient in bed post tx with nurse call, phone, tray, all needs met. Mental Status Patient Orientation: Person, Place, Situation Attachments: Hudson Catheter, IV Transfers SCALE: Activities may be completed with or without assistive devices. 8-Djkyuxytfa-ufzmuoh completes the activity by him/herself with no assistance from a helper. 5-Set-up or Clean-up Assistance-helper sets up or cleans up; patient completes activity. [place] assists only prior to or following the activity. 4-Supervision or Touching Assistance-helper provides verbal cues and/or touching/steadying and/or contact guard assistance as patient completes activity. Assistance may be provided throughout the activity or intermittently. 3-Partial/Moderate Assistance-helper does LESS THAN HALF the effort. [place] lifts, holds or supports trunk or limbs, but provides less than half the effort. 2-Substantial/Maximal Assistance-helper does MORE THAN HALF the effort. [place] lifts or holds trunk or limbs and provides more than half the effort. 4-Hdgfgxkwe-rcijai does ALL the effort. Patient does none of the effort to co mplete the activity. Or, the assistance of 2 or more helpers is required for the patient to complete the activity. If activity was not attempted, code reason: 7-Patient Refused. 9-Not Applicable-not attempted and the patient did not perform the activity before the current illness, exacerbation or injury. 10-Not Attempted due to Environmental Limitations-(lack of equipment, weather restraints, etc.). 88-Not Attempted due to Medical Conditions or Safety Concerns. Roll Left & Right (QC): 6 Sit to Lying (QC): 4 Lying to Sitting/Side of Bed(Q: 4 Sit to Stand (QC): 4 Chair/Zaa-yc-Afykv Xfer(QC): 4 Gait Training Distance: 200' Walk 10 feet (QC): 4 Walk 50 ft with 2 Turns(QC): 4 Walk 150 ft (QC): 4 Gait Persons Needed: 1 Gait Assistive Device: FWW SBA, patient had to turn back due to nausea, after getting back to her room she got back into bed and has an emesis basin, nursing students in room to get her vitals, has nausea but no vomiting Treatments bed mobility and transfers, ambulation Assessment Current Status: Fair Progress SBA with all mobility PT Care Home Goals Home Worker Goals PT Home Worker Goals Time Frame: Apr 06, 2022 Roll Left & Right (QC): 6 Sit to Lying (QC): 6 Lying-Sitting on Side/Bed(QC): 6 Sit to Stand (QC): 6 Chair/Lpe-zm-Dokhc Xfer(QC): 6 Toilet Transfer (QC): 6 Walk 10 feet (QC): 6 Walk 50ft with 2 Turns (QC): 6 Walk 150 ft (QC): 6 PT Plan Problem List Problem List: Activity Tolerance, Functional Strength, Safety, Balance, Gait, Transfer, Bed Mobility, ROM Treatment/Plan Treatment Plan: Continue Plan of Care Treatment Plan: Education, Functional Activity Usman, Functional Strength, Gait, Safety, Therapeutic Exercise, Transfers Treatment Duration: Apr 06, 2022 Frequency: 6 times per week Estimated Hrs Per Day: .25 hour per day Patient and/or Family Agrees t: Yes Safety Risks/Education Patient Education: Gait Training, Transfer Techniques, Correct Positioning, Safety Issues Teaching Recipient: Patient Teaching Methods: Demonstration, Discussion Response to Teaching: Reinforcement Needed Time/GCodes Time In: 926 Time Out: 936 Total Billed Treatment Time: 10 Total Billed Treatment 1 visit FA STEVEN MENESES PT Mar 27, 2022 09:49
--- NOTE | 2022-03-27 11:07 | Progress Note - Surgery ---
CARLOS RODRIGUES 03/27/22 1107: Subjective Date Seen by a Provider: Mar 27, 2022 Time Seen by a Provider: 10:20 Subjective/Events-last exam Patient says everything is about the same today. She has a berrios in place and endorses no discomfort with it. She claims she is not in any pain, she just fee ls uncomfortable. Review of Systems Pulmonary: No Dyspnea, No Cough Cardiovascular: No: Chest Pain, Lt Headedness Gastrointestinal: No: Nausea, Vomiting, Abdominal Pain Focused Exam Lactate Level 03/25/22 12:58: Lactic Acid Level 1.17 Objective Exam Vital Signs Date Time Temp Pulse Resp B/P (MAP) Pulse Ox O2 Delivery O2 Flow Rate FiO2 03/27/22 09:38 87 190/88 (122) 03/27/22 09:00 Room Air 03/27/22 07:46 36.3 63 18 190/82 (118) 96 Room Air 03/27/22 03:41 36.0 61 18 163/83 (109) 95 Room Air 03/26/22 23:59 35.9 63 18 161/79 (106) 94 Room Air 03/26/22 21:00 Room Air 03/26/22 19:30 36.3 68 20 162/83 (109) 95 Room Air 03/26/22 15:20 36.1 67 20 146/81 (102) 96 Room Air 03/26/22 11:18 36.1 61 18 148/82 (104) 97 Room Air I & O 03/27/22 07:00 Intake Total 1530 ml Output Total 2125 ml Balance -595 ml Capillary Refill : Less Than 3 Seconds General Appearance: No Apparent Distress, WD/WN HEENT: PERRL/EOMI, Moist Mucous Membranes Neck: Non Tender, Supple Respiratory: Lungs Clear, Normal Breath Sounds, No Accessory Muscle Use, No Respiratory Distress Cardiovascular: Regular Rate, Rhythm, No Murmur Peripheral Pulses: 2+ Dorsalis Pedis (R), 2+ Left Dors-Pedis (L), 2+ Radial Pulses (R), 2+ Radial Pulses (L) Gastrointestinal: non tender, soft Extremity: Non Tender, No Calf Tenderness, No Pedal Edema Neurologic/Psychiatric: Alert, Oriented x3 Skin: Normal Color, Warm/Dry Lymphatic: No Adenopathy (cervical) Results Lab Microbiology 03/25/22 Blood Culture - Preliminary, Resulted No growth 03/25/22 Urine Culture - Preliminary, Resulted Escherichia coli Assessment/Plan Assessment/Plan Assessment/Plan Constipation N/V- improved UTI- ceftriaxone administered Emphysematous cystitis HTN Will try miralax for constipation. Zofran PRN for nausea, last administered on 03/25. Urine culture was positive for gram negative jackie, IV ceftriaxone running. Patient likely does not need any surgical intervention from a general surgery standpoint. Resume home metoprolol, clonidine and amlodopine for BP control. ALLEN CARRENO DO 03/27/22 1121: Subjective Time Seen by a Provider: 10:07 Subjective/Events-last exam Pt seen and examined, states no changes and really no abdominal pain. Review of Systems Pulmonary: No Dyspnea, No Cough Cardiovascular: No: Chest Pain Gastrointestinal: No: Nausea, Vomiting, Abdominal Pain Genitourinary: Frequency, Incontinence; No Hematuria Objective Exam General Appearance: No Apparent Distress, WD/WN HEENT: PERRL/EOMI, Moist Mucous Membranes Respiratory: Lungs Clear, Normal Breath Sounds, No Accessory Muscle Use, No Respiratory Distress Cardiovascular: Regular Rate, Rhythm, No Murmur Gastrointestinal: non tender, soft Extremity: Non Tender Neurologic/Psychiatric: Alert, Oriented x3 Assessment/Plan Assessment/Plan Assessment/Plan Constipation N/V- improved UTI- ceftriaxone administered Emphysematous cystitis HTN Will try miralax for constipation. Zofran PRN for nausea, last administered on 03/25. Urine culture was positive for gram negative jackie, IV ceftriaxone running. Patient likely does not need any surgical intervention from a general surgery standpoint. Resume home metoprolol, clonidine and amlodopine for BP control. Pt stated she hadn't seen Dr. Toure, but he was actually in and did consult. He had no changes or additions. I do not think pt needs any surgical intervention and therefore can be discharged when IM thinks she is ready to go. I will sign off and can reconsult if needed. Supervisory-Addendum Brief Verification & Attestation Participated in pt care: history, MDM, physical Personally performed: exam, history, MDM, supervision of care Care discussed with: Medical Student Procedures: n/a Verification and Attestation of Medical Student E/M Service A medical student performed and documented this service. I then reviewed and verified all information documented by the medical student and made modifications to such information, when appropriate. I personally performed a physical exam, medical decision making and then discussed any differences between the notes and made revisions as necessary to create one note. Allen Carreno , 03/27/22 , 11:20 CARLOS RODRIGUES Mar 27, 2022 11:07 ALLEN CARRENO DO Mar 27, 2022 11:21
--- NOTE | 2022-03-27 12:58 | Progress Note ---
Subjective Date Seen by a Provider: Mar 27, 2022 Time Seen by a Provider: 12:57 Subjective/Events-last exam Fwup UTI, emphysematous cystitis, constipation, HTN, weakness, Dyspepsia. Had BM but ongoing nausea/reflux. Focused Exam Lactate Level 03/25/22 12:58: Lactic Acid Level 1.17 Objective Exam Vital Signs Date Time Temp Pulse Resp B/P (MAP) Pulse Ox O2 Delivery O2 Flow Rate FiO2 03/27/22 11:14 36.0 63 18 168/76 (106) 94 Room Air 03/27/22 09:38 87 190/88 (122) 03/27/22 09:00 Room Air 03/27/22 07:46 36.3 63 18 190/82 (118) 96 Room Air 03/27/22 03:41 36.0 61 18 163/83 (109) 95 Room Air 03/26/22 23:59 35.9 63 18 161/79 (106) 94 Room Air 03/26/22 21:00 Room Air 03/26/22 19:30 36.3 68 20 162/83 (109) 95 Room Air 03/26/22 15:20 36.1 67 20 146/81 (102) 96 Room Air I & O 03/27/22 07:00 Intake Total 1530 ml Output Total 2125 ml Balance -595 ml Capillary Refill : Less Than 3 Seconds General Appearance: Mild Distress Respiratory: Lungs Clear Cardiovascular: Regular Rate, Rhythm Gastrointestinal: normal bowel sounds, non tender, soft Extremity: Non Tender, No Calf Tenderness, No Pedal Edema Neurologic/Psychiatric: Alert, Oriented x3 Results Lab Microbiology 03/25/22 Blood Culture - Preliminary, Resulted No growth 03/25/22 Urine Culture - Final, Complete Escherichia coli Assessment/Plan Assessment/Plan Assess & Plan/Chief Complaint 1. UTI/Emphysematous Cystitis--continue rocephin, no cystoscopy needed per urology, just treat infection 2. Constipation--add MOM, continue miralax, increase activity 3. Hypertension--stable 4. Dyspepsia--Increase protonix to BID, discussed EGD with Dr. Middleton--will plan on this in AM 5. Weakness--start PT Clinical Quality Measures Admission Status Admission Dx 1. Acute UTI/Emphysematous Cystitis--admit for IV rocephin and urology consult 2. Pelvic Free Air--surgery consult 3. Obstipation--start miralax 4. Dyspepsia with Intractable Nausea/Vomiting--IV protonix with IV zofran prn 5. Hypertension--resume home metoprolol, clonidine and amlodopine 6. Weakness--will start PT 7. Depression--resume Wellbutrin YADIEL ARAUJO DO Mar 27, 2022 12:58
--- NOTE | 2022-03-27 13:47 | Progress Note - Urology ---
Progress Note-Urology Progress Notes/Assess & Plan Progress/Assessment & Plan RECOMMEND LEAVE FOELY TOTAL OF 7 DAYS, FOLLOW UP WITH ME IN 4 WEEKS Final Diagnosis UTI AND CYSTITIS JENNYFER CRANE MD Mar 27, 2022 13:47
[2022-03-27] MEDS: LACTATED RINGERS 1,000 ML IV SCH (14:13)
[2022-03-27] MEDS ORDERED: SCOPOLAMINE 1.5 MG (TRANSDERM-SCOP) PATCH TD NR (17:45)
[2022-03-27] MEDS ORDERED: cloNIDine 0.1 MG (CATAPRES) TAB PO NR (17:45)
[2022-03-27] MEDS: ACETAMINOPHEN 325 MG TABLET PO PRN (20:36)
[2022-03-27] MEDS: CATHETER FLUSH 10 ML SYR IVP PRN (20:41)
[2022-03-27] MEDS: polyethylene glycoL POWDER 17 GM (MIRALAX) PACK PO SCH (21:36)
[2022-03-28] VITALS (10 sets, daily range): BP systolic 102–248; BP diastolic 50–110
[2022-03-28] MEDS: fentaNYL INJ 100 MCG/2 ML AMP IV PRN ×3 (00:38→11:09)
[2022-03-28] MEDS: LACTATED RINGERS 1,000 ML IV SCH ×2 (03:45→20:30)
[2022-03-28] MEDS ORDERED: hydrALAZINE (APESOLINE) 20 MG/ML VIAL IV ONE (06:00)
[2022-03-28] MEDS ORDERED: hydrALAZINE (APESOLINE) 20 MG/ML VIAL IV SCH (06:00)
[2022-03-28] MEDS ORDERED: hydrALAZINE (APESOLINE) 20 MG/ML VIAL ONE (06:02)
[2022-03-28] MEDS: CATHETER FLUSH 10 ML SYR IVP PRN (06:16)
[2022-03-28] MEDS: ONDANSETRON 4 MG/2 ML (SDV) Z0FRAN IV PRN ×2 (06:16→12:35)
[2022-03-28] MEDS: hydrALAZINE (APESOLINE) 20 MG/ML VIAL IV PRN ×2 (07:05→16:08)
[2022-03-28] MEDS ORDERED: LACTATED RINGERS 1,000 ML IV STA (08:45)
[2022-03-28] MEDS ORDERED: HURRICAINE EXT TUBE (BENZOCAINE) XX PRN (08:45)
--- NOTE | 2022-03-28 09:04 | Progress Note - Surgery ---
Subjective Time Seen by a Provider: 08:49 Subjective/Events-last exam Pt seen and examined, states she just feels miserable. "I've been dealing with this for 2 months". Main complaint is "backing up into my throat", nausea and really a mild abdominal pain. She is having trouble eating because of these symptoms. Review of Systems General: Fatigue Pulmonary: No Dyspnea, No Cough Cardiovascular: No: Chest Pain, Palpitations Gastrointestinal: Nausea, Abdominal Pain, Constipation; No: Vomiting Focused Exam Lactate Level 03/25/22 12:58: Lactic Acid Level 1.17 Objective Exam Vital Signs Date Time Temp Pulse Resp B/P (MAP) Pulse Ox O2 Delivery O2 Flow Rate FiO2 03/28/22 08:32 Room Air 03/28/22 07:43 36.9 64 20 147/82 (103) 97 Room Air 03/28/22 05:59 84 248/110 (156) 03/28/22 04:00 36.4 60 20 180/98 (125) 97 Room Air 03/27/22 23:59 36.5 63 18 170/92 (118) 95 Room Air 03/27/22 21:00 Room Air 03/27/22 19:57 36.0 62 18 199/90 (126) 94 Room Air 03/27/22 15:55 36.1 62 16 185/84 (117) 97 Room Air 03/27/22 11:14 36.0 63 18 168/76 (106) 94 Room Air 03/27/22 09:38 87 190/88 (122) I & O 03/28/22 07:00 Intake Total 1050 ml Output Total 3600 ml Balance -2550 ml Capillary Refill : Less Than 3 Seconds General Appearance: Chronically ill, Mild Distress HEENT: PERRL/EOMI, Moist Mucous Membranes Respiratory: Lungs Clear, Normal Breath Sounds, No Accessory Muscle Use, No Respiratory Distress Cardiovascular: Regular Rate, Rhythm, No Murmur Peripheral Pulses: 2+ Dorsalis Pedis (R), 2+ Left Dors-Pedis (L), 2+ Radial Pulses (R), 2+ Radial Pulses (L) Gastrointestinal: normal bowel sounds, non tender, soft, tenderness (mild diffusely) Extremity: Non Tender, No Calf Tenderness, No Pedal Edema Neurologic/Psychiatric: Alert, Oriented x3 Skin: Normal Color, Warm/Dry Lymphatic: No Adenopathy (cervical) Results Lab Microbiology 03/25/22 Blood Culture - Preliminary, Resulted No growth 03/25/22 Urine Culture - Final, Complete Escherichia coli Assessment/Plan Assessment/Plan Assessment/Plan 1. UTI/Emphysematous Cystitis--continue rocephin, no cystoscopy needed per urology, just treat infection 2. Constipation--add MOM, continue miralax, increase activity 3. Hypertension--stable 4. Dyspepsia--Increase protonix to BID, Plan EGD this in AM 5. Weakness--start PT HERSNO CARRENO DO Mar 28, 2022 09:04
[2022-03-28] MEDS ORDERED: proPOfol 200 MG/20 ML (DIPRIVAN) VIAL IV ONE (09:14)
--- NOTE | 2022-03-28 09:29 | Progress Note-Post Operative ---
Post-Operative Progess Note Surgeon (s)/Metal Dealer (s) Surgeon HERSON CARRENO DO Metal Dealer: none Pre-Operative Diagnosis epigastric pain, fullness Post-Operative Diagnosis Gastritis small hiatal hernia Procedure & Operative Findings Date of Procedure 03/28/22 Procedure Performed/Findings EGD with biopsy PROCEDURE NOTE: After informed consent was obtained, the patient was brought to the endoscopy suite, placed in bed in left lateral decubitus position. She was administered IV sedation by the HEDIS MANAGER who then monitored vitals the entire time, heart rate, blood pressure and pulse ox and the scope was inserted down the mouth through the esophagus into the stomach. On the way down, noted some mild esophagitis, took a picture, pushed into the stomach, pushed past the antrum into the duodenum. Duodenum looked good. Pulled back, noted some gastritis and did a biopsy of the antrum, then retroflexed the scope, saw a small hiatal hernia, took a picture of this and then pulled the scope into the GE junction, Next, did a biopsy of the GE junction. Pushed the scope back into the stomach, suctioned all the air out of the stomach. At this point pulled the scope up the esophagus (taking pictures) and out the mouth. The patient tolerated the procedure, and she recovered in endoscopy suite. Anesthesia Type IV sedation by HEDIS MANAGER Estimated Blood Loss Estimated blood loss (mL): scant Specimens/Packing Specimens Removed antral bx body of stomach bx GE jxn bx HERSON CARRENO DO Mar 28, 2022 09:29
--- NOTE | 2022-03-28 09:32 | Anesthesia-General Post-Op ---
MAC Patient Condition Mental Status/LOC: Same as Preop Cardiovascular: Satisfactory Nausea/Vomiting: Absent Respiratory: Satisfactory Pain: Controlled Complications: Absent Post Op Complications Complications None Follow Up Care/Instructions Patient Instructions None needed. Anesthesiology Discharge Order Discharge Order Patient is doing well, no complaints, stable vital signs, no apparent adverse anesthesia problems. No complications reported per nursing. ELIEZER ROMO CRNA Mar 28, 2022 09:32
[2022-03-28] MEDS: cefTRIAXone 1 GM/50 ML (PRE-MIX) IV SCH (10:10)
[2022-03-28] MEDS: PANTOPRAZOLE 40 MG (PROTONIX) VIAL IV SCH ×2 (10:15→20:30)
[2022-03-28] MEDS: cloNIDine 0.1 MG (CATAPRES) TAB PO SCH ×3 (10:21→20:28)
[2022-03-28] MEDS: meTOprolol SUCCINATE 100 MG (TOPROL XL) TAB PO SCH (10:21)
[2022-03-28] MEDS: buPROPion SR 150 MG (WELLBUTRIN SR) TAB PO SCH (10:21)
--- NOTE | 2022-03-28 11:11 | Physical Therapy Progress Note ---
Therapy Progress Note Patient adamantly declined PT due to just returned from a test. Will attempt later today or tomorrow. 1 ref ANAID BOSE PT Mar 28, 2022 11:11
--- NOTE | 2022-03-28 12:51 | Progress Note ---
Subjective Date Seen by a Provider: Mar 28, 2022 Time Seen by a Provider: 12:48 Subjective/Events-last exam Fwup UTI, emphysematous cystitis, constipation, HTN, weakness, Dyspepsia. Had EGD this morning and still groggy from that. Focused Exam Lactate Level 03/25/22 12:58: Lactic Acid Level 1.17 Objective Exam Vital Signs Date Time Temp Pulse Resp B/P (MAP) Pulse Ox O2 Delivery O2 Flow Rate FiO2 03/28/22 11:07 36.5 64 18 158/82 (107) 95 Room Air 03/28/22 09:35 60 18 97 Room Air 03/28/22 09:30 60 18 99 OxyMask 4.00 03/28/22 09:25 60 18 100 OxyMask 10.00 03/28/22 08:32 Room Air 03/28/22 07:43 36.9 64 20 147/82 (103) 97 Room Air 03/28/22 05:59 84 248/110 (156) 03/28/22 04:00 36.4 60 20 180/98 (125) 97 Room Air 03/27/22 23:59 36.5 63 18 170/92 (118) 95 Room Air 03/27/22 21:00 Room Air 03/27/22 19:57 36.0 62 18 199/90 (126) 94 Room Air 03/27/22 15:55 36.1 62 16 185/84 (117) 97 Room Air I & O 03/28/22 07:00 Intake Total 1050 ml Output Total 3600 ml Balance -2550 ml Capillary Refill : Less Than 3 Seconds General Appearance: No Apparent Distress Neck: Supple Respiratory: Lungs Clear Cardiovascular: Regular Rate, Rhythm, Systolic Murmur Gastrointestinal: normal bowel sounds, non tender, soft Extremity: Non Tender, No Calf Tenderness, No Pedal Edema Neurologic/Psychiatric: Alert Skin: Warm/Dry Results Lab Microbiology 03/25/22 Blood Culture - Preliminary, Resulted No growth 03/25/22 Urine Culture - Final, Complete Escherichia coli Assessment/Plan Assessment/Plan Assess & Plan/Chief Complaint 1. UTI/Emphysematous Cystitis--continue rocephin, no cystoscopy needed per urology, DC berrios catheter 2. Constipation--add MOM, continue miralax, increase activity 3. Hypertension--BP up yesterday and overnight due to anxiety, better now post- procedure, add hydralazine IV prn 4. Dyspepsia--EGD showed gastritis and small HH, continue protonix BID and add carafate 5. Weakness--start PT 6. Anxiety--restart paroxetine in place of Wellbutrin Clinical Quality Measures Admission Status Admission Dx 1. Acute UTI/Emphysematous Cystitis--admit for IV rocephin and urology consult 2. Pelvic Free Air--surgery consult 3. Obstipation--start miralax 4. Dyspepsia with Intractable Nausea/Vomiting--IV protonix with IV zofran prn 5. Hypertension--resume home metoprolol, clonidine and amlodopine 6. Weakness--will start PT 7. Depression--resume Wellbutrin YADIEL ARAUJO DO Mar 28, 2022 12:51
[2022-03-28] MEDS: SUCRALFATE 1 GM (CARAFATE) TAB PO SCH ×2 (16:08→20:28)
[2022-03-28] MEDS: ACETAMINOPHEN 325 MG TABLET PO PRN ×2 (16:17→20:29)
[2022-03-28] MEDS: polyethylene glycoL POWDER 17 GM (MIRALAX) PACK PO SCH (20:28)
[2022-03-28] MEDS ORDERED: PARoxetine 10 MG (PAXIL) TAB PO SCH (21:00)
[2022-03-29 00:24] VITALS: BP 151/67
[2022-03-29 04:04] VITALS: BP 160/77
[2022-03-29] MEDS: SUCRALFATE 1 GM (CARAFATE) TAB PO SCH ×2 (06:24→10:29)
[2022-03-29] MEDS: cefTRIAXone 1 GM/50 ML (PRE-MIX) IV SCH (08:44)
[2022-03-29] MEDS: PANTOPRAZOLE 40 MG (PROTONIX) VIAL IV SCH (08:45)
[2022-03-29] MEDS: meTOprolol SUCCINATE 100 MG (TOPROL XL) TAB PO SCH (08:45)
[2022-03-29] MEDS: cloNIDine 0.1 MG (CATAPRES) TAB PO SCH ×2 (08:45→13:34)
[2022-03-29 08:52] VITALS: BP 181/91
[2022-03-29] MEDS: ONDANSETRON 4 MG/2 ML (SDV) Z0FRAN IV PRN (09:00)
[2022-03-29] MEDS: ACETAMINOPHEN 325 MG TABLET PO PRN ×2 (09:03→13:39)
[2022-03-29] MEDS ORDERED: PARO10TA3 PO (09:59)
[2022-03-29] MEDS ORDERED: SUCR1TAB PO (09:59)
--- NOTE | 2022-03-29 10:02 | D/C HH Face to Face Order ---
D/C Face to Face Orders Reconcile Patient Problems Problems Reviewed?: Yes Instructions for Patient Via [facility], Patient Instructions/FollowUp: Has fwup with me on April 04 Physician to follow Patient: Mary Discharge Diet for Home: Low Sodium Diet Patient Data-Allergies,Ht & Wt Patient Allergies: Coded Allergies: Milk Containing Products (Unverified Allergy, Unknown, 04/19/13) FROM UNCODED LIST codeine (Verified Allergy, Unknown, 10/11/20) erythromycin base (Unverified Allergy, Unknown, 08/29/06) metaxalone (Verified Allergy, Unknown, 10/11/20) Height (Feet): 5 Height (Inches): 5.00 Weight (Pounds): 140 Weight (Ounces): 0.0 Home Health Need/Face to Face Date of Face to Face: Mar 29, 2022 Clinical Findings: Generalized weakness and fatigue, Instability, Muscle we akness, Unsteady gait I have seen Pt [id number]: Yes Discharged To: Home Diagnosis/Conditions: UTI Labile hypertension Dyspepsia with Gastritis and small hiatial hernia Weakness Anxiety/Deprssion Patient is Homebound due to: CognItive deficits, Aden fall risk due to instabilty, Muscle weakness Homebound Status Due to the above stated illness, injury or surgical procedure (medical con dition or diagnosis) and associated clinical findings, the patient is homebound because of his/her inability to leave home except with aid of a supportive device and/or person AND leaving the home requires a considerable and taxing effort or is medically contraindicated. Pt req the following assistanc: Walker Home Health Nursing Orders Home Health Services Order: Nursing Services, Scale Installer-Evaluate & Treat, Physical Therapy-Evaluate & Treat MATT bonilla--on in AM and off in PM Home Health Infusion Therapy Line Start Date: Mar 25, 2022 Certify Stmt I certify that this patient is under my care and that I, a nurse practitioner or a physician; a medical assistant instructor working with me, had a face to face encounter that - meets the physician face to face encounter requirements with this patient as dated. YADIEL ARAUJO DO Mar 29, 2022 10:02
[2022-03-29] MEDS: LACTATED RINGERS 1,000 ML IV SCH (10:28)
[2022-03-29 12:24] VITALS: BP 130/71
--- NOTE | 2022-03-29 14:16 | Discharge Summary ---
Diagnosis/Chief Complaint Date of Admission Mar 25, 2022 at 12:30 Date of Discharge Discharge Date: Mar 29, 2022 Discharge Diagnosis 1. UTI/Emphysematous Cystitis--Resolved 2. Constipation--has had BM prior to discharge 3. Hypertension--improving 4. Dyspepsia with Small Hiatal Hernia and Gastritis--S/P EGD 5. Weakness--improving with PT 6. Anxiety/Depression--restart paroxetine in place of Wellbutrin 7. Lumbar Spinal Stenosis with Chronic Right Leg Radiculopathy--flared up post EGD--has implantable nerve stimulation Reason Hospital Visit This is a 81 year old female who presented to the emergency room who presented to the emergency room with complaint of constipation and nausea and vomiting. 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 She will be admitted and started on IV rocephin with both urology and surgery consults. Discharge Summary Hospital Course Was the Problem List Reviewed?: Yes Hospital Course This is a 81 year old female who presented to the emergency with complaint of constipation and nausea and vomiting. 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 A CT cystogram was performed and revealed no extravasation, no perforation, and no fistula so she was treated with a berrios catheter and IV rocephin for acute UTI. By the time of discharge, her berrios catheter was removed and she was urinating without difficulty. She had no abdominal pain and her urine culture grew out E. coli which was sensitive to the rocephin. Dr. Toure was consulted and she will follow up with him as an outpatient as needed. Surgery was also consulted for the free air in her pelvis and felt that there was no evidence of any type of perforation so her constipation was treated and then she did undergo an EGD due to ongoing complaints of nausea and indigestion. The EGD did show a small hiatal hernia and diffuse gastritis. She had been on IV protonix so carafated slurries were added. By the following day, her nausea was improving and she was eating and drinking more. Her only complaint was right leg sciatica which flared up after the EGD. She was up ambulating with PT prior to discharge with standby assist and it was felt she could go home with home health. I did talk with her son, Saman, about her hospital stay and plans for discharge. She will be discharged home with her current home medications except her Wellbutrin will be discontinued and she will be switched back to paroxetine at bedtime in case the Wellbutrin has been contributing to the nausea. She will also go home on carafate slurries AC and HS. She has a follow up with me as scheduled on April 04. Procedures None. Discharge Physical Examination Allergies: Coded Allergies: Milk Containing Products (Unverified Allergy, Unknown, 04/19/13) FROM UNCODED LIST codeine (Verified Allergy, Unknown, 10/11/20) erythromycin base (Unverified Allergy, Unknown, 08/29/06) metaxalone (Verified Allergy, Unknown, 10/11/20) Vitals & I&Os Vital Signs Date Time Temp Pulse Resp B/P (MAP) Pulse Ox O2 Delivery O2 Flow Rate FiO2 03/29/22 12:24 36.3 86 19 130/71 (90) 95 Room Air 03/28/22 09:30 4.00 General Appearance: Alert, Oriented X3, No Acute Distress Respiratory: Clear to Auscultation Cardiovascular: Regular Rate Abdominal: Normal Bowel Sounds, Soft, No Tenderness Psych/Mental Status: Mental Status NL, Mood NL Discharge Home Medications Reviewed and agree with Discharge Medication list on patient's Discharge Instruction sheet Instructions to Patient/Family Please see electronic discharge instructions given to patient. YADIEL ARAUJO DO Mar 29, 2022 14:16
[2022-03-29] MEDS ORDERED: PANTOPRAZOLE 40 MG (PROTONIX) TAB PO SCH (21:00)
[2022-03-30] MEDS ORDERED: SCOPOLAMINE PATCH REMOVAL TP NR (17:45)
== END 2022-03-29 15:16 | disposition home health service (06) | DRG 690 ==
LOC: EDUNIT# 11:28 → ER 11:29 → 4TH 12:30
PROVIDERS: ADMIT Family Medicine; ATTEND Family Medicine
PROC: 0DB68ZX Excision of Stomach, Via Natural or Artificial Opening Endoscopic, Diagnostic (ICD-10-PCS; 2022-03-28)
PROC: 0DB48ZX Excision of Esophagogastric Junction, Via Natural or Artificial Opening Endoscopic, Diagnostic (ICD-10-PCS; principal; 2022-03-28 08:55)
DX: N30.80 Other cystitis without hematuria (principal); K59.00 Constipation, unspecified; I10 Essential (primary) hypertension; R10.13 Epigastric pain; K44.9 Diaphragmatic hernia without obstruction or gangrene; K29.70 Gastritis, unspecified, without bleeding; R53.1 Weakness; F41.9 Anxiety disorder, unspecified; F32.A Depression, unspecified; M48.061 Spinal stenosis, lumbar region without neurogenic claudication; E78.00 Pure hypercholesterolemia, unspecified; F03.90 Unspecified dementia, unspecified severity, without behavioral disturbance, psychotic disturbance, mood disturbance, and anxiety; Z86.73 Personal history of transient ischemic attack (TIA), and cerebral infarction without residual deficits; K21.9 Gastro-esophageal reflux disease without esophagitis; G89.29 Other chronic pain; M54.9 Dorsalgia, unspecified; N39.46 Mixed incontinence; N32.81 Overactive bladder
CPT/HCPCS: 36415; 72192; 74176; 80048; 80053; 81000; 83605; 83690; 85025; 85610; 87040; 87077; 87088; 87186; 96361; 96365; 96375

== ENCOUNTER 2022-10-26 16:06 | Inpatient (IN) | payer MEDICARE, OTHER ==
[~2022-10-26] VITALS: Ht 170.2 cm; Wt 62.7 kg
[~2022-10-26 16:06] MED LIST changes: +BUPR150T24 PO; +DONE10TA41 PO; +MULT-1054 PO; +NYST1000 PO; +SUCR1TAB PO; +TRAM50TA3 PO
--- NOTE | 2022-10-26 16:38 | ED General ---
General Chief Complaint: Altered Mental Status Stated Complaint: UPSET STOMACH Nursing Triage Note: pt to room by wheelchair with her sister. pt is confused and slow to respond during triage. pt sister answers most questions for pt. pt sister states pt had complained of "upset stomach" for a few days. pt sister also reports pt has been "shaking more than usual" and "more confused today." pt sister reports pt went to urgent care yesterday and was started on abx for uti. pt blood pressure elevated during triage, pt states she "does not know if she took her blood pressure medicine" today Source of Information: Patient, Family Exam Limitations: Other (Confusion) (ALBIN BRUCE MD) History of Present Illness Date Seen by Provider: Oct 26, 2022 Time Seen by Provider: 16:20 Initial Comments This 82-year-old woman presents to the emergency room with primary complaints of confusion and upset stomach. She is rather disoriented and a poor historian and significantly off her cognitive baseline according to her sister. She is accompanied by her sister, Kriss Olmedo ([phone]), who provides much of the history. Patient lives alone and neither the patient nor Kriss know if she has been compliant with her medications. She is markedly hypertensive with systolic blood pressures exceeding 220 during assessment. Patient has been ambulatory today with a walker, but she is normally ambulatory without assistance. She has had 2 days of upset stomach and went to [facility] urgent care yesterday where she was diagnosed with UTI and prescribed Cipro. She did start the Cipro. She has a chronic tremor which is worse today. She denies fever or chills. She has nausea but denies vomiting or diarrhea. She is afebrile. Based on patient's medication profile, it would appear she is treated for dementia. Dr. Hernandez is her primary care provider. (ALBIN BRUCE MD) Allergies and Home Medications Allergies Coded Allergies: Milk Containing Products (Unverified Allergy, Unknown, 04/19/13) FROM UNCODED LIST codeine (Verified Allergy, Unknown, 10/11/20) erythromycin base (Unverified Allergy, Unknown, 08/29/06) metaxalone (Verified Allergy, Unknown, 10/11/20) Patient Home Medication List Home Medication List Reviewed: Yes (ALBIN BRUCE MD) Acetaminophen (Tylenol Arthritis) 650 Mg Tablet.er, 1,300 MG PO BID, (Reported) Entered as Reported by: VIRGEN TATUM on 08/06/21 1005 Amlodipine Besylate (Amlodipine Besylate) 5 Mg Tablet, 2.5 MG PO DAILY, (Reported) Entered as Reported by: VIRGEN TATUM on 03/25/22 152 Cholecalciferol (Vitamin D3) (Vitamin D3) 125 Mcg (5000 Unit) Tablet, 125 MCG PO DAILY, (Reported) Entered as Reported by: VIRGEN TATUM on 10/18/21 150 Clonidine HCl (Clonidine HCl) 0.1 Mg Tablet, 0.1 MG PO BID, (Reported) Entered as Reported by: VIRGEN TATUM on 10/18/21 150 Donepezil HCl (Donepezil HCl) 10 Mg Tablet, 10 MG PO HS, (Reported) Entered as Reported by: VIRGEN TATUM on 03/25/22 152 Metoprolol Succinate (Metoprolol Succinate) 100 Mg Tab.er.24h, 100 MG PO DAILY, (Reported) Entered as Reported by: VIRGEN TATUM on 03/25/22 152 Multivitamin with Minerals (Hair, Skin & Nails) 1 Each Tablet, 1 EACH PO DAILY, (Reported) Entered as Reported by: VIRGEN TATUM on 03/25/22 152 Nystatin (Nystatin) 100,000 Unit/Ml Oral.susp, 5 ML PO QID, (Reported) Entered as Reported by: VIRGEN TATUM on 03/25/22 152 Pantoprazole Sodium (Pantoprazole Sodium) 40 Mg Tablet.dr, 40 MG PO BID, (Reported) Entered as Reported by: VIRGEN TATUM on 10/18/21 150 Paroxetine HCl (Paroxetine HCl) 10 Mg Tablet, 10 MG PO HS Prescribed by: YADIEL HERNANDEZ on 03/29/22958 Sucralfate (Sucralfate) 1 Gram Tablet, 1 GM PO ACHS Prescribed by: YADIEL HERNANDEZ on 03/29/22958 Tramadol HCl (Tramadol HCl) 50 Mg Tablet, 50 MG PO BID, (Reported) Entered as Reported by: VIRGEN TATUM on 03/25/22 152 Review of Systems Review of Systems Constitutional: no symptoms reported EENTM: no symptoms reported Respiratory: no symptoms reported Cardiovascular: see HPI Gastrointestinal: see HPI Genitourinary: see HPI : No Musculoskeletal: no symptoms reported Skin: no symptoms reported Psychiatric/Neurological: See HPI Hematologic/Lymphatic: No Symptoms Reported Immunological/Allergic: no symptoms reported (ALBIN BRUCE MD) Past Pixhjda-Vubzwh-Vbugxr Hx Patient Social History Tobacco Use?: No Use of E-Cig and/or Vaping dev: No Substance use?: No Alcohol Use?: No (ALBIN BRUCE MD) Immunizations Up To Date Tetanus Booster (TDap): More than 5yrs PED Vaccines UTD: Yes First/Initial COVID19 Vaccinat: 2020 Second COVID19 Vaccination Bladimir: 2020 Third COVID19 Vaccination Date: NONE (ALBIN BRUCE MD) Seasonal Allergies Seasonal Allergies: No (ALBIN BRUCE MD) Past Medical History Surgeries: Yes Appendectomy, Bladder Surgery, Eye Surgery (Cataracts), Gallbladder, 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, Orthopedic, Pacemaker, Tonsillectomy Respiratory: No Cardiac: Yes High Cholesterol, Hypertension Neurological: Yes Dementia, TIA Reproductive Disorders: No Female Reproductive Disorders: Denies 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 History: 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, Menopausal Sexually Transmitted Disease: No HIV/AIDS: No Genitourinary: Yes (patient has a history of UTI, doesn't remember how many) UTI-Chronic Gastrointestinal: Yes Gastroesophageal Reflux, Diverticulosis Musculoskeletal: Yes Arthritis Endocrine: No HEENT: Yes Cataract Loss of Vision: Bilateral Cancer: No Psychosocial: Yes Anxiety, Depression Integumentary: No Blood Disorders: No Adverse Reaction/Blood Tranf: No (ALBIN BRUCE MD) Family Medical History Alzheimer's disease Arthritis Asthma Colon cancer Completed stroke Dementia Hypertension Myocardial infarction Visual disorder Cancer, Hypertension, Lung Disease, Other Conditions/Hx (ALBIN BRUCE MD) Physical Exam Vital Signs Vital Signs - First Documented 10/26/22 16:14 Temp 36.9 Pulse 100 Resp 24 B/P (MAP) 225/118 (153) Pulse Ox 96 (HARJIT RASHID MD) Vital Signs Capillary Refill : (ALBIN BRUCE MD) Height, Weight, BMI Height: 5'5.00" Weight: 140lbs. 0.0oz. [id number]; 21.00 BMI Method:Stated General Appearance: WD/WN, Other (Confused, mildly anxious, thin, tremoring) HEENT: PERRL/EOMI, TMs Normal, Normal ENT Inspection, Pharynx Normal Neck: Normal Inspection; No JVD Respiratory: Lungs Clear, Normal Breath Sounds, No Accessory Muscle Use Cardiovascular: Regular Rate, Rhythm, No Edema, No Murmur Gastrointestinal: Normal Bowel Sounds, Non Tender, Soft Extremity: Normal Inspection, No Pedal Edema Neurologic/Psychiatric: Alert, No Motor/Sensory Deficits, Other (Mildly anxious, confused, no other focal deficit) Skin: Normal Color, Warm/Dry (ALBIN BRUCE MD) Focused Exam Lactate Level 10/26/22 16:40: Lactic Acid Level 1.74 (HARJIT RASHID MD) Lactic Acid Level Laboratory Tests Test 10/26/22 16:40 Lactic Acid Level 1.74 MMOL/L (0.50-2.00) (HARJIT RASHID MD) Progress/Results/Core Measures Suspected Sepsis SIRS Temperature: Pulse: 100 Respiratory Rate: 24 Laboratory Tests 10/26/22 16:20: White Blood Count 7.3 Blood Pressure 225 /118 Mean: 153 10/26/22 16:40: Lactic Acid Level 1.74 Laboratory Tests 10/26/22 16:20: Creatinine 1.44H, INR Comment 1.1, Platelet Count 187, Total Bilirubin 0.8 (ALBIN BRUCE MD) Results/Orders Lab Results Laboratory Tests Test 10/26/22 16:20 10/26/22 16:40 10/26/22 19:24 Range/Units White Blood Count 7.3 4.3-11.0 10^3/uL Red Blood Count 3.56 L 3.80-5.11 10^6/uL Hemoglobin 12.0 11.5-16.0 g/dL Hematocrit 35 35-52 % Mean Corpuscular Volume 98 80-99 fL Mean Corpuscular Hemoglobin 34 25-34 pg Mean Corpuscular Hemoglobin Concent 34 32-36 g/dL Red Cell Distribution Width 12.3 10.0-14.5 % Platelet Count 187 130-400 10^3/uL Mean Platelet Volume 10.6 9.0-12.2 fL Immature Granulocyte % (Auto) 0 % Neutrophils (%) (Auto) 68 42-75 % Lymphocytes (%) (Auto) 23 12-44 % Monocytes (%) (Auto) 8 0-12 % Eosinophils (%) (Auto) 0 0-10 % Basophils (%) (Auto) 1 0-10 % Neutrophils # (Auto) 5.0 1.8-7.8 10^3/uL Lymphocytes # (Auto) 1.7 1.0-4.0 10^3/uL Monocytes # (Auto) 0.6 0.0-1.0 10^3/uL Eosinophils # (Auto) 0.0 0.0-0.3 10^3/uL Basophils # (Auto) 0.0 0.0-0.1 10^3/uL Immature Granulocyte # (Auto) 0.0 0.0-0.1 10^3/uL Prothrombin Time 14.3 12.2-14.7 SEC INR Comment 1.1 0.8-1.4 Activated Partial Thromboplast Time 40 H 24-35 SEC Sodium Level 141 135-145 MMOL/L Potassium Level 3.7 3.6-5.0 MMOL/L Chloride Level 105 98-107 MMOL/L Carbon Dioxide Level 20 L 21-32 MMOL/L Anion Gap 16 H 5-14 MMOL/L Blood Urea Nitrogen 22 H 7-18 MG/DL Creatinine 1.44 H 0.60-1.30 MG/DL Estimat Glomerular Filtration Rate 36 BUN/Creatinine Ratio 15 Glucose Level 114 H 70-105 MG/DL Calcium Level 9.7 8.5-10.1 MG/DL Corrected Calcium 9.6 8.5-10.1 MG/DL Total Bilirubin 0.8 0.1-1.0 MG/DL Aspartate Amino Transf (AST/SGOT) 49 H 5-34 U/L Alanine Aminotransferase (ALT/SGPT) 17 0-55 U/L Alkaline Phosphatase 42 40-136 U/L C-Reactive Protein High Sensitivity 1.73 H 0.00-0.50 MG/DL B-Type Natriuretic Peptide 178.4 H <100.0 PG/ML Total Protein 7.3 6.4-8.2 GM/DL Albumin 4.1 3.2-4.5 GM/DL TSH [place] Testing 1.23 0.35-4.94 UIU/ML Lactic Acid Level 1.74 0.50-2.00 MMOL/L Urine Color YELLOW Urine Clarity SL CLOUDY Urine pH 6.0 5-9 Urine Specific [place] >=1.030 1.016-1.022 Urine Protein 3+ H NEGATIVE Urine Glucose (UA) NEGATIVE NEGATIVE Urine Ketones TRACE H NEGATIVE Urine Nitrite NEGATIVE NEGATIVE Urine Bilirubin NEGATIVE NEGATIVE Urine Urobilinogen 0.2 < = 1.0 MG/DL Urine Leukocyte Esterase NEGATIVE NEGATIVE Urine RBC (Auto) 2+ H NEGATIVE Urine RBC 5-10 H /HPF Urine WBC 2-5 /HPF Urine Squamous Epithelial Cells 2-5 /HPF Urine Crystals PRESENT H /LPF Urine Amorphous Sediment LARGE JESSICA URATES H /LPF Urine Bacteria FEW H /HPF Urine Casts PRESENT /LPF Urine Hyaline Casts 0-2 H /LPF Urine Granular Casts 0-2 H /LPF Urine Mucus SMALL H /LPF Urine Culture Indicated CULTURE PENDING (HARJIT RASHID MD) My Orders Orders - HARJIT RASHID MD Clonidine Tablet (Catapres Tablet) (10/26/22 19:45) Ns Iv 500 Ml (Sodium Chloride 0.9%) (10/26/22 19:51) Ondansetron Injection (Zofran Injectio (10/26/22 20:30) (HARJIT RASHID MD) Medications Given in ED Current Medications Medications Dose Ordered Sig/Deborah Route Start Time Stop Time Status Last Admin Dose Admin Clonidine HCl 0.1 mg ONCE ONCE PO 10/26/22 19:45 10/26/22 19:46 DC 10/26/22 19:39 0.1 MG Labetalol HCl 10 mg ONCE ONCE IV 10/26/22 16:45 10/26/22 16:46 DC 10/26/22 16:54 10 MG Ondansetron HCl 4 mg ONCE ONCE IVP 10/26/22 16:45 10/26/22 16:46 DC 10/26/22 16:54 4 MG Ondansetron HCl 4 mg ONCE ONCE IVP 10/26/22 20:30 10/26/22 20:31 DC 10/26/22 20:36 4 MG (HARJIT RASHID MD) Vital Signs/I&O 10/26/22 16:14 Temp 36.9 Pulse 100 Resp 24 B/P (MAP) 225/118 (153) Pulse Ox 96 (HARJIT RASHID MD) Vital Signs/I&O Capillary Refill : (ALBIN BRUCE MD) Blood Pressure Mean: 153 Progress Note : Time: 18:12 Progress Note Patient was interviewed and examined. Sister was also interviewed and provided most of the reliable history. Due to the severe hypertension, labetalol 10 mg IV was administered. A satisfactory drop in blood pressure occurred. Blood pressure at this time is 181/93. I have seen blood pressures as low as the 160s systolic since being treated. This represents a drop of approximately 20%. I suspect with compliance in question, she is experiencing rebound hypertension after using clonidine. CT of the head was obtained due to the altered cognition in the presence of severe hypertension. No hemorrhaging or other acute abnormalities was appreciated. CT was viewed and interpreted by me. Radiologist's report was also reviewed as below. Labs have been relatively unremarkable. I have interpreted labs including CBC, CMP, CRP, thyroid margareth zer, BNP, and coags. CMP was remarkable for elevation in creatinine consistent with patient's prior values. There were no other significant abnormalities of clinical value. Radiologist interpretation of the chest x-ray was unremarkable. We have not yet been able to obtain a urine specimen from the patient. Disposition is pending urinalysis and discussion with attending physician. Care is being transitioned to Dr. Rashid at this time. (ALBIN BRUCE MD) Progress Note #1: Time: 18:45 Progress Note care assumed at shift change from Dr Bruce Progress Note #2: Time: 20:47 Progress Note Patient seen and examined by me. I have reviewed the labs and imaging as ordered by the prior provider. Patient's blood pressure has continued to creep back up. She is in the 190s systolic at this time. I have given 0.1 of clonidine approximately 30 minutes ago. Patient is continuing to complain of a "upset tummy" with nausea. She is not tachycardic. SHe is not hypoxic. She does not appear confused at this point. Sister would feel more comfortable if the patient stayed overnight for further blood pressure management. Patient would also be comfortable with admission. Labs show a CBC that is normal. Her chemistry is remarkable for CO2 of 20, anion gap of 16, BUN and creatinine of 22 and 1.44 which appear to be at her baseline. CRP is 1.73. Lactic acid 1.74. BNP slightly elevated at 178 however the patient has no evidence of congestive failure at this time. Coags reviewed, normal except for a PTT of 42. Urinalysis shows specific gravity many greater than 1.030. Nitrite and leukocyte esterase negative. She has 5-10 red blood cells, 2-5 squamous epithelial cells, 2-5 white blood cells. Few bacteria. Her head CT was read as negative. Chest x-ray unremarkable. Patient has been given IV fluids here in the department as well as 10 mg of labetalol which did improve her blood pressure for short while. Also given the clonidine as stated. Dr. HENAO, on for her primary care physician Dr. HERNANDEZ recommends admission to the medical floor. We will start her on Rocephin for the urine. We will also start her back on her home medications for blood pressure as compliance has been in question in the past. I do not want to start her on anything more aggressive until we can see if home medications will control her blood pressure. Patient has been given some Zofran for her nausea. Patient and sister are happy with plan of care. (HARJIT RASHID MD) ECG Initial ECG Impression Date: Oct 26, 2022 Initial ECG Impression Time: 16:58 Initial ECG Rate: 89 Initial ECG Rhythm: Normal Sinus Comment Sinus rhythm with no ST elevation or depression. QRS duration slightly long at 132 ms. No axis deviation. (ALBIN BRUCE MD) Diagnostic Imaging Diagonstic Imaging: CT Plain Films/CT/US/NM/MRI: head Comments CT head viewed by me and report reviewed. See report below: NAME: CARIN BECK [facility] REC#: [id number] PT STATUS: REG ER : 1940 PHYSICIAN: ALBIN BRUCE MD ADMIT DATE: 10/26/22/ER Signed Date of Exam:10/26/22 CT HEAD WO PROCEDURE: CT head without contrast. TECHNIQUE: Multiple contiguous axial images were obtained through the brain without the use of intravenous contrast. Auto Exposure Controls were utilized during the CT exam to meet ALARA standards for radiation dose reduction. INDICATION: Altered mental status COMPARISON: CT of the head on 05/22/2021. FINDINGS: No acute intracranial hemorrhage. The linda-white matter differentiation is preserved. Mild generalized cerebral volume loss. Mild nonspecific periventricular hypoattenuation. No intracranial mass or fluid collection. No midline shift. The subarachnoid spaces are maintained. Scattered calcifications of the intracranial vasculature. The sella is normal. The globes and orbits are normal. The skull is intact. The paranasal sinuses and mastoids are clear. IMPRESSION: No acute intracranial hemorrhage. No large vascular territory trivedi-white loss. No intracranial mass, midline shift, or hydrocephalus. Mild chronic small vessel ischemic disease. Mild global volume loss. Dictated by: Dictated on workstation # [id number] Dict: 10/26/221654 Trans: 10/26/221656 [facility] [id number] Interpreted by: RANDALL BRENNAN DO Electronically signed by: RANDALL BRENNAN DO 10/26/221656 Diagonstic Imaging: Xray Plain Films/CT/US/NM/MRI: chest Comments Chest x-ray viewed by me and report reviewed. See report below: NAME: CARIN BECK [facility] REC#: [id number] PT STATUS: REG ER : 1940 PHYSICIAN: ALBIN BRUCE MD ADMIT DATE: 10/26/22/ER Signed Date of Exam:10/26/22 CHEST 1 VIEW, AP/PA ONLY INDICATION: Confusion, HTN. COMPARISON: Chest radiograph 10/22/2021. FINDINGS: Lungs: Normal lung volume. No focal consolidation. Stable pulmonary vasculature. Pleura: No pleural effusion or pneumothorax. Heart and Mediastinum: Cardiomediastinal silhouette and great vessels of the thorax are stable. Left pectoral pacemaker. Osseous Structures and Soft Tissues: No acute osseous abnormality. Normal soft tissues. Redemonstration of chronic deformity of the left clavicle. IMPRESSION: No acute cardiopulmonary process. Dictated by: Dictated on workstation # [id number] Dict: 10/26/221653 Trans: 10/26/221654 [facility] [id number] Interpreted by: RANDALL BRENNAN DO Electronically signed by: RANDALL BRENNAN DO 10/26/221654 (ALBIN BRUCE MD) Departure Communication (Admissions) Time/Spoke to Admitting Phy: 20:[address] Henao; obs Medical; [facility] (HARJIT RASIHD MD) Impression Primary Impression: Hypertensive emergency Additional Impressions: Altered mental status Qualified Codes: R41.82 - Altered mental status, unspecified Noncompliance with medication regimen Urinary tract infection Qualified Codes: N30.01 - Acute cystitis with hematuria Disposition: ADMITTED INPATIENT Condition: Stable Admissions Decision to Admit Reason: Admit from ER (General) Decision to Admit/Date: Oct 26, 2022 Time/Decision to Admit Time: 20:32 (HARJIT RASHID MD) Departure-Patient Inst. Referrals: YADIEL HERNANDEZ DO (PCP/Family) Primary Care Physician ALBIN BRUCE MD Oct 26, 2022 16:38 HARJIT RASHID MD Oct 26, 2022 18:46
[2022-10-26 16:41] LABS: BASOPHILS % (AUTO) 1 % (0-10); EOSINOPHILS % (AUTO) 0 % (0-10); HEMATOCRIT 35 % (35-52); LYMPHOCYTES # (AUTO) 1.7 10^3/uL (1.0-4.0); LYMPHOCYTES % (AUTO) 23 % (12-44); MEAN CORPUSCULAR HEMOGLOBIN 34 pg (25-34); MEAN CORPUSCULAR HGB CONC 34 g/dL (32-36); MEAN CORPUSCULAR VOLUME 98 fL (80-99); MEAN PLATELET VOLUME 10.6 fL (9.0-12.2); MONOCYTES # (AUTO) 0.6 10^3/uL (0.0-1.0); MONOCYTES % (AUTO) 8 % (0-12); NEUTROPHILS % (AUTO) 68 % (42-75); PLATELET COUNT 187 10^3/uL (130-400); WHITE BLOOD COUNT 7.3 10^3/uL (4.3-11.0)
[2022-10-26 16:45] LABS: ALBUMIN 4.1 GM/DL (3.2-4.5); POTASSIUM 3.7 MMOL/L (3.6-5.0)
[2022-10-26] MEDS ORDERED: ONDANSETRON 4 MG/2 ML (SDV) Z0FRAN IVP ONE ×2 (16:45→20:30)
[2022-10-26] MEDS ORDERED: LABETALOL HCL 20 MG/4 ML VIAL IV ONE (16:45)
[2022-10-26 16:46] LABS: CALCIUM 9.7 MG/DL (8.5-10.1)
[2022-10-26 16:47] LABS: TOTAL PROTEIN 7.3 GM/DL (6.4-8.2)
[2022-10-26 16:49] LABS: BILIRUBIN,TOTAL 0.8 MG/DL (0.1-1.0)
[2022-10-26 16:51] LABS: CREATININE SERUM 1.44 MG/DL (0.60-1.30); INR 1.1 (0.8-1.4); PROTHROMBIN TIME PATIENT 14.3 SEC (12.2-14.7)
--- NOTE | 2022-10-26 16:57 | Diagnostic Imaging Report ---
CHEST 1 VIEW, AP/PA ONLY INDICATION: Confusion, HTN. COMPARISON: Chest radiograph 10/22/2021. FINDINGS: Lungs: Normal lung volume. No focal consolidation. Stable pulmonary vasculature. Pleura: No pleural effusion or pneumothorax. Heart and Mediastinum: Cardiomediastinal silhouette and great vessels of the thorax are stable. Left pectoral pacemaker. Osseous Structures and Soft Tissues: No acute osseous abnormality. Normal soft tissues. Redemonstration of chronic deformity of the left clavicle. IMPRESSION: No acute cardiopulmonary process. Dictated by: Dictated on workstation # [id number]
--- NOTE | 2022-10-26 16:58 | Diagnostic Imaging Report ---
PROCEDURE: CT head without contrast. TECHNIQUE: Multiple contiguous axial images were obtained through the brain without the use of intravenous contrast. Auto Exposure Controls were utilized during the CT exam to meet ALARA standards for radiation dose reduction. INDICATION: Altered mental status COMPARISON: CT of the head on 05/22/2021. FINDINGS: No acute intracranial hemorrhage. The linda-white matter differentiation is preserved. Mild generalized cerebral volume loss. Mild nonspecific periventricular hypoattenuation. No intracranial mass or fluid collection. No midline shift. The subarachnoid spaces are maintained. Scattered calcifications of the intracranial vasculature. The sella is normal. The globes and orbits are normal. The skull is intact. The paranasal sinuses and mastoids are clear. IMPRESSION: No acute intracranial hemorrhage. No large vascular territory trivedi-white loss. No intracranial mass, midline shift, or hydrocephalus. Mild chronic small vessel ischemic disease. Mild global volume loss. Dictated by: Dictated on workstation # [id number]
[2022-10-26 17:14] LABS: TSH (THYROID ANALYZER) 1.23 UIU/ML (0.35-4.94)
[2022-10-26 19:29] LABS: BILIRUBIN,URINE NEGATIVE (NEGATIVE); CLARITY,URINE SL CLOUDY; COLOR,URINE YELLOW; GLUCOSE, URINE (UA) NEGATIVE (NEGATIVE); KETONES,URINE TRACE (NEGATIVE); LEUKOCYTE ESTERASE ,URINE NEGATIVE (NEGATIVE); NITRITE,URINE NEGATIVE (NEGATIVE); PROTEIN,URINE 3+ (NEGATIVE)
[2022-10-26 19:43] LABS: BACTERIA,URINE FEW /HPF
[2022-10-26 19:44] LABS: AMORPHOUS SEDIMENT,UR LARGE AMOR URATES /LPF; GRANULAR CASTS,URINE 0-2 /LPF; HYALINE CASTS, URINE 0-2 /LPF
[2022-10-26] MEDS ORDERED: cloNIDine 0.1 MG (CATAPRES) TAB PO ONE (19:45)
[2022-10-26] MEDS ORDERED: NS IV 500 ML 500 ML IV STA (19:51)
[2022-10-26 22:42] VITALS: BP 188/81
[2022-10-26] MEDS ORDERED: ONDANSETRON 4 MG/2 ML (SDV) Z0FRAN IV PRN (23:00)
[2022-10-26] MEDS: cefTRIAXone 1 GM/NS 50 ML IVPB IV SCH ×2 (23:16)
[2022-10-26] MEDS: AMITRIPTYLINE 10 MG (ELAVIL) TAB PO SCH (23:16)
[2022-10-27] VITALS (8 sets, daily range): BP systolic 106–203; BP diastolic 55–92
[2022-10-27] MEDS: hydrALAZINE (APRESOLINE) 25 MG TAB PO SCH ×4 (00:16→19:42)
[2022-10-27 05:48] LABS: CALCIUM 8.5 MG/DL (8.5-10.1); CREATININE SERUM 1.46 MG/DL (0.60-1.30); POTASSIUM 3.3 MMOL/L (3.6-5.0)
[2022-10-27] MEDS: PANTOPRAZOLE 40 MG (PROTONIX) TAB PO SCH (06:01)
--- NOTE | 2022-10-27 07:56 | History & Physical ---
History of Present Illness History of Present Illness Reason for visit/HPI Pt reports that she is unsure as to why she is in the hospital. Pt reports living at home alone since her . She reports that she was "doing fine" at home. ER reported that the pt was brought in by her sister- Kriss Olmedo ([phone]) who provided the history to the ER since Michelle was extremely confused upon being brought to the ER. The sister reported significant tremors, worse than usual, uncertain if Michelle had been compliant with her home medication regimen, and had been to urgent care for symptoms of a UTI. The provider at [facility] urgent care prescribed CIPRO, but Michelle had yet to start on the antibiotic. Michelle does not remember any of those events. Date of Admission Oct 26, 2022 at 22:11 Date Seen by a Provider: Oct 27, 2022 Time Seen by a Provider: 07:30 I consulted on this patient on 10/27/22 07:51 Attending Physician Yadiel Hernandez DO Admitting Physician Admitting Physician: Thomas Henao MD Attending Physician: Thomas Henao MD Consult Allergies and Home Medications Allergies Coded Allergies: Milk Containing Products (Unverified Allergy, Unknown, 04/19/13) FROM UNCODED LIST codeine (Verified Allergy, Unknown, 10/11/20) erythromycin base (Unverified Allergy, Unknown, 08/29/06) metaxalone (Verified Allergy, Unknown, 10/11/20) Patient Home Medication List Home Medication List Reviewed: Yes Acetaminophen (Tylenol Arthritis) 650 Mg Tablet.er, 1,300 MG PO BID, (Reported) Entered as Reported by: VIRGEN TATUM on 08/06/21 1005 Last Action: Reviewed Amlodipine Besylate (Amlodipine Besylate) 5 Mg Tablet, 2.5 MG PO DAILY, (Reported) Entered as Reported by: VIRGEN TATUM on 03/25/22 1529 Cholecalciferol (Vitamin D3) (Vitamin D3) 125 Mcg (5000 Unit) Tablet, 125 MCG PO DAILY, (Reported) Entered as Reported by: VIRGEN TATUM on 10/18/21 1508 Last Action: Held Clonidine HCl (Clonidine HCl) 0.1 Mg Tablet, 0.1 MG PO BID, (Reported) Entered as Reported by: VIRGEN TATUM on 10/18/21 1508 Donepezil HCl (Donepezil HCl) 10 Mg Tablet, 10 MG PO HS, (Reported) Entered as Reported by: VIRGEN TATUM on 03/25/221528 Metoprolol Succinate (Metoprolol Succinate) 100 Mg Tab.er.24h, 100 MG PO DAILY, (Reported) Entered as Reported by: VIRGEN TATUM on 03/25/221528 Multivitamin with Minerals (Hair, Skin & Nails) 1 Each Tablet, 1 EACH PO DAILY, (Reported) Entered as Reported by: VIRGEN TATUM on 03/25/221528 Last Action: Held Nystatin (Nystatin) 100,000 Unit/Ml Oral.susp, 5 ML PO QID, (Reported) Entered as Reported by: VIRGEN TATUM on 03/25/221528 Last Action: Held Pantoprazole Sodium (Pantoprazole Sodium) 40 Mg Tablet.dr, 40 MG PO BID, (Reported) Entered as Reported by: VIRGEN TATUM on 10/18/211507 Last Action: Reviewed Paroxetine HCl (Paroxetine HCl) 10 Mg Tablet, 10 MG PO HS Prescribed by: YADIEL HERNANDEZ on 03/29/22958 Sucralfate (Sucralfate) 1 Gram Tablet, 1 GM PO ACHS Prescribed by: YADIEL HERNANDEZ on 03/29/22 09 Tramadol HCl (Tramadol HCl) 50 Mg Tablet, 50 MG PO BID, (Reported) Entered as Reported by: VIRGEN TATUM on 03/25/221528 Past Ssyahos-Qmgisr-Aticoa Hx Patient Social History Marrital Status: Employed/Student: retired Tobacco Use?: No Smoking Status: Former Smoker Use of E-Cig and/or Vaping dev: No Substance use?: No Alcohol Use?: No Pt feels they are or have been: No Immunizations Up To Date Date of Influenza Vaccine: Mar 30, 2021 First/Initial COVID19 Vaccinat: 2020 Second COVID19 Vaccination Bladimir: 2020 Tetanus Booster (TDap): More Than 5 Years Hepatitis A: No Hepatitis B: No PED Vaccines UTD: Yes Date of Pneumonia Vaccine: Mar 30, 2008 Seasonal Allergies Seasonal Allergies: No Current Status status: No status: No Advance Directives: Unable to obtain Communicates: Verbally Primary Language: Russian Preferred Spoken Language: Russian Is interpretation needed?: No Sensory deficits: Vision impairment Past Medical History Surgeries: Appendectomy, Bladder Surgery, Eye Surgery (Cataracts), Gallbladder, 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, Orthopedic, Pacemaker, Tonsillectomy Currently Using CPAP: No Currently Using BIPAP: No High Cholesterol, Hypertension 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, 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, 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 Sexually Transmitted Disease: No HIV/AIDS: No UTI-Chronic Gastroesophageal Reflux, Diverticulosis Arthritis Cataract Loss of Vision: Bilateral Anxiety, Depression Blood Disorders: No Adverse Reaction/Blood Tranf: No Family Medical History Reviewed Nursing Family Hx Alzheimer's disease Arthritis Asthma Colon cancer Completed stroke Dementia Hypertension Myocardial infarction Visual disorder Cancer, Hypertension, Lung Disease, Other Conditions/Hx Review of Systems Constitutional: No chills, No fever, No malaise; weakness EENTM: No hoarseness, No throat pain Respiratory: No cough, No dyspnea on exertion, No short of breath Cardiovascular: No chest pain, No palpitations Gastrointestinal: No abdominal pain, No constipation, No diarrhea, No nausea, No vomiting Genitourinary: no symptoms reported Musculoskeletal: No back pain; muscle weakness Skin: no symptoms reported Psychiatric/Neurological: Anxiety, Depressed, Weakness All Other Systems Reviewed Negative Unless Noted: Yes Physical Exam Vital Signs Vital Signs - First Documented 10/26/22 10/26/22 16:14 22:42 Temp 36.9 Pulse 100 Resp 24 B/P (MAP) 225/118 (153) Pulse Ox 96 O2 Delivery Room Air Capillary Refill : Height, Weight, BMI Height: 5'5.00" Weight: 140lbs. 0.0oz. 63.725273oe; 21.64 BMI Method:Stated General Appearance: No Apparent Distress, WD/WN HEENT: PERRL/EOMI, Pharynx Normal Neck: Full Range of Motion, Non Tender, Supple Respiratory: Chest Non Tender, Lungs Clear, Normal Breath Sounds, No Accessory Muscle Use, No Respiratory Distress Cardiovascular: Regular Rate, Rhythm Gastrointestinal: Normal Bowel Sounds, Non Tender, Soft Rectal: Deferred Extremity: Normal Capillary Refill, Non Tender, No Calf Tenderness, No Pedal Edema Neurologic/Psychiatric: Alert, Normal Mood/Affect, Other (oriented to person, place, not time) Skin: Normal Color, Warm/Dry Lymphatic: No Adenopathy Assessment/Plan Assessment and Plan Hypertensive Urgency Urinary tract infection Hypokalemia Stage 3 renal failure Dementia GERD Depression Anxiety Hypertensive Urgency - pt on clonidine, hydralazine, waiting on her home medication to be reconciled by confirmation from the pharmacy. - BP better today compared to admission. Urinary tract infection - pt on rocephin, waiting on culture report. Hypokalemia - pt with low potassium today- pt given oral potassium today - check repeat labs tomorrow. Stage 3 renal failure - IV fluids, monitor labs - it appears she is at baseline creatinine Dementia - wait on restarting her home regimen until reconciled. GERD - pt on PPI therapy Depression and Anxiety - will restart ssri therapy once medications reconciled. Pt will need placement on dc for strengthening and potentially convalescent long-term care. DVT prophylaxis with lovenox, scd's gi prophylaxis with ppi Admission Diagnosis Hypertensive Urgency Urinary tract infection Hypokalemia Stage 3 renal failure Dementia GERD Depression Anxiety Admission Status: Inpatient Order (span 2 midnights) Reason for Inpatient Admission: status change to inpatient due to uncontorlled hypertension, urinary tract infection - will require another 48 - 72 hours in the hospital for medication adjustment and antibiotics THOMAS HENAO MD Oct 27, 2022 07:56
[2022-10-27] MEDS ORDERED: KCL 20 MEQ TAB (K-DUR) PO ONE (08:15)
[2022-10-27] MEDS: PARoxetine 20 MG (PAXIL) TAB PO SCH (08:47)
[2022-10-27] MEDS: meTOprolol SUCCINATE 100 MG (TOPROL XL) TAB PO SCH (08:48)
[2022-10-27] MEDS: ENOXAPARIN INJECTION 30 MG/0.3 ML SYR SC SCH (08:48)
[2022-10-27] MEDS: cloNIDine 0.1 MG (CATAPRES) TAB PO SCH ×3 (08:48→19:41)
[2022-10-27] MEDS: amLODIPine 2.5MG (NORVASC) TAB PO SCH (08:48)
[2022-10-27] MEDS: AMITRIPTYLINE 10 MG (ELAVIL) TAB PO SCH (19:41)
[2022-10-27] MEDS: cefTRIAXone 1 GM/NS 50 ML IVPB IV SCH ×2 (22:22)
[2022-10-28] VITALS (8 sets, daily range): BP systolic 116–166; BP diastolic 57–79
[2022-10-28] MEDS: PANTOPRAZOLE 40 MG (PROTONIX) TAB PO SCH (05:35)
[2022-10-28 06:02] LABS: HEMATOCRIT 30 % (35-52); HEMOGLOBIN 9.8 g/dL (11.5-16.0); MEAN CORPUSCULAR HEMOGLOBIN 33 pg (25-34); MEAN CORPUSCULAR HGB CONC 33 g/dL (32-36); MEAN CORPUSCULAR VOLUME 103 fL (80-99); MEAN PLATELET VOLUME 11.1 fL (9.0-12.2); PLATELET COUNT 143 10^3/uL (130-400); WHITE BLOOD COUNT 6.1 10^3/uL (4.3-11.0)
[2022-10-28 06:19] LABS: ALBUMIN 3.1 GM/DL (3.2-4.5); BILIRUBIN,TOTAL 0.3 MG/DL (0.1-1.0); CALCIUM 8.1 MG/DL (8.5-10.1); CREATININE SERUM 1.56 MG/DL (0.60-1.30); POTASSIUM 3.8 MMOL/L (3.6-5.0); TOTAL PROTEIN 5.5 GM/DL (6.4-8.2)
[2022-10-28] MEDS: cloNIDine 0.1 MG (CATAPRES) TAB PO SCH ×4 (08:11→20:07)
[2022-10-28] MEDS: PARoxetine 20 MG (PAXIL) TAB PO SCH (08:11)
[2022-10-28] MEDS: meTOprolol SUCCINATE 100 MG (TOPROL XL) TAB PO SCH (08:11)
[2022-10-28] MEDS: amLODIPine 2.5MG (NORVASC) TAB PO SCH (08:11)
[2022-10-28] MEDS: ENOXAPARIN INJECTION 30 MG/0.3 ML SYR SC SCH (08:11)
[2022-10-28] MEDS: hydrALAZINE (APRESOLINE) 25 MG TAB PO SCH ×4 (08:12→20:06)
--- NOTE | 2022-10-28 08:33 | Progress Note ---
Subjective Date Seen by a Provider: October 28, 2022 Time Seen by a Provider: 08:29 Subjective/Events-last exam Fwup acute UTI, hypertensive urgency, confusion/worsening dementia, debility, acute on chronic renal insufficiency. Sitting up in bed eating--recognizes me but then says she has to get home because "Bill" is home alone--this is her . Focused Exam Lactate Level 10/26/22 16:40: Lactic Acid Level 1.74 Objective Exam Vital Signs Date Time Temp Pulse Resp B/P (MAP) Pulse Ox O2 Delivery O2 Flow Rate FiO2 10/28/22 07:45 62 10/28/22 07:12 36.1 73 18 148/79 (102) 94 Room Air 10/28/22 04:00 36.1 61 18 145/76 (99) 99 Room Air 10/28/22 01:00 61 10/27/22 23:31 36.7 80 20 154/67 (96) 94 Room Air 10/27/22 20:00 Room Air 10/27/22 19:11 36.1 72 20 165/71 (102) 92 Room Air 10/27/22 19:00 67 10/27/22 15:35 36.0 86 18 106/55 (72) 97 Room Air 10/27/22 12:59 72 10/27/22 11:08 36.6 67 16 115/67 (83) 92 Room Air I & O 10/28/22 07:00 Intake Total 1400 ml Balance 1400 ml Capillary Refill : General Appearance: No Apparent Distress Neck: Supple Respiratory: Lungs Clear Cardiovascular: Regular Rate, Rhythm Gastrointestinal: normal bowel sounds, non tender, soft Extremity: Non Tender, No Calf Tenderness, No Pedal Edema Neurologic/Psychiatric: Alert, Oriented x3 Skin: Warm/Dry Results Lab Laboratory Tests 10/28/22 05:27: White Blood Count 6.1, Red Blood Count 2.93L, Hemoglobin 9.8L, Hematocrit 30L, Mean Corpuscular Volume 103H, Mean Corpuscular Hemoglobin 33, Mean Corpuscular Hemoglobin Concent 33, Red Cell Distribution Width 12.9, Platelet Count 143, Mean Platelet Volume 11.1, Sodium Level 141, Potassium Level 3.8, Chloride Level 109H, Carbon Dioxide Level 25, Anion Gap 7, Blood Urea Nitrogen 29H, Creatinine 1.56H, Estimat Glomerular Filtration Rate 33, BUN/Creatinine Ratio 19, Glucose Level 103, Calcium Level 8.1L, Corrected Calcium 8.8, Total Bilirubin 0.3, Aspartate Amino Transf (AST/SGOT) 42H, Alanine Aminotransferase (ALT/SGPT) 17, Alkaline Phosphatase 29L, Total Protein 5.5L, Albumin 3.1L Microbiology 10/26/22 Urine Culture - Final, Complete NO GROWTH 10/26/22 Blood Culture - Preliminary, Resulted No growth Assessment/Plan Assessment/Plan Assess & Plan/Chief Complaint 1. Hypertensive Urgency--improving 2. UTI--on rocephin 3. Acute on Chronic Renal Insufficiency--give gentle IVFs and repeat Chem 7 in AM 4. Confusion/Worsening Dementia--has not tolerated aricept due to dizziness, will check list from office as I thought she was still taking YADIEL Zaman DO October 28, 2022 08:33
[2022-10-28] MEDS: 1/2 NS W/KCL 20 MEQ/L 1,000 ML IV SCH ×2 (09:06→22:10)
--- NOTE | 2022-10-28 10:21 | Physical Therapy Evaluation ---
PT Evaluation-General Medical Diagnosis Admission Date Oct 27, 2022 at 08:05 Medical Diagnosis: HTN urgency/UTI Onset Date: Oct 27, 2022 Therapy Diagnosis Therapy Diagnosis: generalized weakness/debility Height/Weight Height (Feet): 5 Height (Inches): 5.00 Weight (Pounds): 140 Weight (Ounces): 0.0 Precautions Precautions/Isolations: Fall Prevention (bed and chair alarm), Standard P recautions Referral Physician: Mary Reason for Referral: Evaluation/Treatment Medical History Pertinent Medical History: Dementia, HTN, Hypothroidism, Renal Insufficiency Current History ER secondary to weakness and increased confusion Reviewed History: Yes Social History Home: Single Level Prior Prior Level of Function SCALE: Activities may be completed with or without assistive devices. 6-Dcyoyjnsmy-wvyowoa completes the activity by him/herself with no assistance from a helper. 5-Set-up or Clean-up Assistance-helper sets up or cleans up; patient completes activity. [place] assists only prior to or following the activity. 4-Supervision or Touching Assistance-helper provides verbal cues and/or touching/steadying and/or contact guard assistance as patient completes activity. Assistance may be provided throughout the activity or intermittently. 3-Partial/Moderate Assistance-helper does LESS THAN HALF the effort. [place] lifts, holds or supports trunk or limbs, but provides less than half the effort. 2-Substantial/Maximal Assistance-helper does MORE THAN HALF the effort. [place] lifts or holds trunk or limbs and provides more than half the effort. 9-Zxfhohuyt-ldnwxb does ALL the effort. Patient does none of the effort to complete the activity. Or, the assistance of 2 or more helpers is required for the patient to complete the activity. If activity was not attempted, code reason: 7-Patient Refused. 9-Not Applicable-not attempted and the patient did not perform the activity before the current illness, exacerbation or injury. 10-Not Attempted due to Environmental Limitations-(lack of equipment, weather restraints, etc.). 88-Not Attempted due to Medical Conditions or Safety Concerns. Bed Mobility: 6 Transfers (B,C,W/C): 6 Gait: 6 Indoor Mobility (Ambulation): Independent Prior Devices Use: Walker (PRN per patient report) PT Evaluation-Current Subjective Patient agrees to PT. Noted confusion. Objective Patient Orientation: Person, Confused Attachments: IV ROM/Strength ROM Lower Extremities bilateral LE WFL Strength Lower Extremities 3+/5 grossly bilateral LE all planes Integumentary/Posture Bowel Incontinence: No Bladder Incontinence: No Posture slight trunk flexed posture Neuromuscular (Tone, Coordination, Reflexes) grossly intact Sensory Vision: Functional Hearing: Functional Transfers Lying to Sitting/Side of Bed(Q: 4 Sit to Stand (QC): 4 Chair/Mpo-sz-Sicft Xfer(QC): 4 Toilet Transfer (QC): 4 Gait Mode of Locomotion: Walk Anticipated Mode of Locomotion: Walk Walk 10 feet (QC): 4 Walk 50 ft with 2 Turns(QC): 4 Walk 150 ft (QC): 4 Distance: 150' Gait Assistive Device: FWW Comments/Gait Description slow, steady, functional gait sequence Balance Sitting Static: Normal Sitting Dynamic: Normal Standing Static: Fair Standing Dynamic: Fair Assessment/Needs Patient will benefit from skilled PT to address functional strength and mobility to improve current LOF to safely return to home at maximum LOF. Rehab Potential: Fair PT Emanations Analysis Technician Goals Emanations Analysis Technician Goals PT Alf Goals Time Frame: November 16, 2022 Roll Left & Right (QC): 6 Sit to Lying (QC): 6 Lying-Sitting on Side/Bed(QC): 6 Sit to Stand (QC): 6 Chair/Smt-on-Fnntf Xfer(QC): 6 Toilet Transfer (QC): 6 Walk 10 feet (QC): 6 Walk 50ft with 2 Turns (QC): 6 Walk 150 ft (QC): 6 PT Plan Problem List Problem List: Activity Tolerance, Functional Strength, Safety, Balance, Gait, Transfer, Bed Mobility Treatment/Plan Treatment Plan: Continue Plan of Care Treatment Plan: Bed Mobility, Education, Functional Activity Usman, Functional Strength, Gait, Safety, Therapeutic Exercise, Transfers Treatment Duration: November 16, 2022 Frequency: 6 times per week Estimated Hrs Per Day: .25 hour per day Patient and/or Family Agrees t: Yes Time Time In: 923 Time Out: 934 DATE: October 28, 2022 Total Billed Treatment Time: 11 Total Billed Treatment 1 visit [facility] 11 min ANAID BOSE PT October 28, 2022 10:21
[2022-10-28] MEDS ORDERED: MTP100TCR PO (13:57)
[2022-10-28] MEDS ORDERED: PARO20TA5 PO (13:58)
[2022-10-28] MEDS ORDERED: POLY17PO6 PO (13:59)
[2022-10-28] MEDS ORDERED: CIPR500T5 PO (14:01)
[2022-10-28] MEDS ORDERED: LORazepam INJ 2 MG/ML (ATIVAN) VIAL ONE (19:55)
[2022-10-28] MEDS ORDERED: hydrALAZINE (APESOLINE) 20 MG/ML VIAL IV ONE (20:00)
[2022-10-28] MEDS ORDERED: hydrALAZINE (APESOLINE) 20 MG/ML VIAL ONE (20:41)
[2022-10-28] MEDS ORDERED: LORazepam INJ 2 MG/ML (ATIVAN) VIAL IVP ONE (22:00)
[2022-10-28] MEDS: ACETAMINOPHEN 325 MG TABLET PO SCH (22:30)
[2022-10-28] MEDS: cefTRIAXone 1 GM/NS 50 ML IVPB IV SCH ×2 (22:51)
[2022-10-29] MEDS: ALPRAZolam 0.25 MG (XANAX) TAB PO PRN ×2 (01:08→19:32)
[2022-10-29 03:08] VITALS: BP 146/68
[2022-10-29] MEDS: PANTOPRAZOLE 40 MG (PROTONIX) TAB PO SCH (05:08)
[2022-10-29] MEDS: ACETAMINOPHEN 325 MG TABLET PO SCH ×3 (05:08→21:30)
[2022-10-29 05:50] LABS: POTASSIUM 3.7 MMOL/L (3.6-5.0)
[2022-10-29 05:51] LABS: CALCIUM 8.4 MG/DL (8.5-10.1)
[2022-10-29 05:55] LABS: CREATININE SERUM 1.45 MG/DL (0.60-1.30)
[2022-10-29 06:22] LABS: HEMATOCRIT 33 % (35-52); MEAN CORPUSCULAR HEMOGLOBIN 34 pg (25-34); MEAN CORPUSCULAR HGB CONC 33 g/dL (32-36); MEAN CORPUSCULAR VOLUME 103 fL (80-99); MEAN PLATELET VOLUME 11.9 fL (9.0-12.2); PLATELET COUNT 231 10^3/uL (130-400); WHITE BLOOD COUNT 7.7 10^3/uL (4.3-11.0)
[2022-10-29] MEDS: hydrALAZINE (APRESOLINE) 25 MG TAB PO SCH ×3 (08:36→19:32)
[2022-10-29] MEDS: meTOprolol SUCCINATE 100 MG (TOPROL XL) TAB PO SCH (08:36)
[2022-10-29] MEDS: cloNIDine 0.1 MG (CATAPRES) TAB PO SCH ×2 (08:36→19:32)
[2022-10-29] MEDS: PARoxetine 20 MG (PAXIL) TAB PO SCH (08:36)
[2022-10-29] MEDS: ENOXAPARIN INJECTION 30 MG/0.3 ML SYR SC SCH (08:36)
[2022-10-29] MEDS ORDERED: OLANZapine 2.5 MG (ZyPREXA) TAB ONE ×2 (13:05→21:29)
[2022-10-29] MEDS: 1/2 NS W/KCL 20 MEQ/L 1,000 ML IV SCH (14:15)
[2022-10-29 16:00] VITALS: BP 169/77
[2022-10-29 19:14] VITALS: BP 172/81
[2022-10-29] MEDS ORDERED: OLANZapine 2.5 MG (ZyPREXA) TAB PO ONE (21:30)
[2022-10-29] MEDS: cefTRIAXone 1 GM/NS 50 ML IVPB IV SCH ×2 (22:10)
[2022-10-29 23:53] VITALS: BP 173/71
[2022-10-30 03:26] VITALS: BP 168/70
[2022-10-30] MEDS: 1/2 NS W/KCL 20 MEQ/L 1,000 ML IV SCH ×3 (04:06→17:25)
[2022-10-30] MEDS: ACETAMINOPHEN 325 MG TABLET PO SCH ×3 (05:29→22:41)
[2022-10-30] MEDS: PANTOPRAZOLE 40 MG (PROTONIX) TAB PO SCH (05:29)
[2022-10-30 06:16] LABS: POTASSIUM 4.5 MMOL/L (3.6-5.0)
[2022-10-30 06:17] LABS: CALCIUM 9.3 MG/DL (8.5-10.1)
[2022-10-30 06:21] LABS: CREATININE SERUM 1.33 MG/DL (0.60-1.30)
[2022-10-30 07:13] VITALS: BP 163/69
[2022-10-30] MEDS ORDERED: OLANZapine 2.5 MG (ZyPREXA) TAB PO SCH (09:00)
[2022-10-30] MEDS: cloNIDine 0.1 MG (CATAPRES) TAB PO SCH ×2 (10:09→20:28)
[2022-10-30] MEDS: hydrALAZINE (APRESOLINE) 25 MG TAB PO SCH ×3 (10:09→20:28)
[2022-10-30] MEDS: meTOprolol SUCCINATE 100 MG (TOPROL XL) TAB PO SCH (10:09)
[2022-10-30] MEDS: PARoxetine 20 MG (PAXIL) TAB PO SCH (10:09)
[2022-10-30] MEDS: ENOXAPARIN INJECTION 30 MG/0.3 ML SYR SC SCH (10:09)
[2022-10-30 11:00] VITALS: BP 171/68
--- NOTE | 2022-10-30 11:39 | Physical Therapy Progress Note ---
Therapy Progress Note Patient demonstrates difficulty waking up, but when she does refuses treatment due to feeling sick. Nurse notified, will attempt again tomorrow and progress per patient tolerance. ALAN MELGAR PT October 30, 2022 11:39
--- NOTE | 2022-10-30 12:49 | Progress Note ---
Subjective Date Seen by a Provider: October 30, 2022 Time Seen by a Provider: 08:25 Subjective/Events-last exam Fwup acute UTI, hypertensive urgency, confusion/worsening dementia, debility, acute on chronic renal insufficiency. Very groggy this morning but got both xanax and zyprexa last night due to agitation. Objective Exam Vital Signs Date Time Temp Pulse Resp B/P (MAP) Pulse Ox O2 Delivery O2 Flow Rate FiO2 10/30/22 08:30 Room Air 10/30/22 07:13 36.2 67 16 163/69 (100) Room Air 10/30/22 03:26 36.0 64 17 168/70 (102) 96 Room Air 10/30/22 01:00 60 10/29/22 23:53 36.1 63 16 173/71 (105) 97 Room Air 10/29/22 19:35 Room Air 10/29/22 19:14 36.8 81 18 172/81 (111) 98 Room Air 10/29/22 19:00 63 10/29/22 16:00 36.9 75 20 169/77 (107) 99 Room Air I & O 10/30/22 07:00 Intake Total 1170 ml Output Total 1500 ml Balance -330 ml Capillary Refill : General Appearance: Other (sleeping/groggy) Respiratory: Lungs Clear Cardiovascular: Regular Rate, Rhythm Gastrointestinal: normal bowel sounds, non tender, soft Extremity: Non Tender, No Calf Tenderness, No Pedal Edema Neurologic/Psychiatric: Other (sleeping/groggy--did wake up with examination and answer few questions but then went right back to sleep) Skin: Warm/Dry Results Lab Laboratory Tests 10/30/22 05:43: Sodium Level 143, Potassium Level 4.5, Chloride Level 110H, Carbon Dioxide Level 20L, Anion Gap 13, Blood Urea Nitrogen 20H, Creatinine 1.33H, Estimat Glomerular Filtration Rate 39, BUN/Creatinine Ratio 15, Glucose Level 86, Calcium Level 9.3 Microbiology 10/26/22 Urine Culture - Final, Complete NO GROWTH 10/26/22 Blood Culture - Preliminary, Resulted No growth Assessment/Plan Assessment/Plan Assess & Plan/Chief Complaint 1. Hypertensive Urgency--increase hydralazine to 50mg po TID 2. Acute on Chronic Renal Insufficiency--continue IVFs and repeat Chem 7 in AM 3. Confusion/Worsening Dementia--has not tolerated aricept due to dizziness, will start memantine, will need DC to SNF 4. Acute Delirium--continue zyprexa at 2.5mg po BID, will get rid of xanax due to grogginess 5. UTI--on YADIEL Nevarez DO October 30, 2022 12:49
[2022-10-30 15:24] VITALS: BP 155/76
[2022-10-30 19:59] VITALS: BP 188/98
[2022-10-30] MEDS: OLANZapine 2.5 MG (ZyPREXA) TAB PO SCH (20:28)
[2022-10-30] MEDS: cefTRIAXone 1 GM/NS 50 ML IVPB IV SCH ×2 (22:41)
[2022-10-31] VITALS (7 sets, daily range): BP systolic 98–171; BP diastolic 49–79
[2022-10-31] MEDS: 1/2 NS W/KCL 20 MEQ/L 1,000 ML IV SCH ×2 (06:05→19:15)
[2022-10-31 06:22] LABS: POTASSIUM 4.2 MMOL/L (3.6-5.0)
[2022-10-31 06:23] LABS: CALCIUM 8.5 MG/DL (8.5-10.1)
[2022-10-31 06:27] LABS: CREATININE SERUM 1.45 MG/DL (0.60-1.30)
[2022-10-31] MEDS: ACETAMINOPHEN 325 MG TABLET PO SCH ×3 (06:27→21:17)
[2022-10-31] MEDS: PANTOPRAZOLE 40 MG (PROTONIX) TAB PO SCH (06:27)
[2022-10-31] MEDS: ENOXAPARIN INJECTION 30 MG/0.3 ML SYR SC SCH (08:43)
[2022-10-31] MEDS: hydrALAZINE (APRESOLINE) 25 MG TAB PO SCH ×3 (08:43→19:50)
[2022-10-31] MEDS: cloNIDine 0.1 MG (CATAPRES) TAB PO SCH ×2 (08:43→19:50)
[2022-10-31] MEDS: meTOprolol SUCCINATE 100 MG (TOPROL XL) TAB PO SCH (08:43)
[2022-10-31] MEDS: OLANZapine 2.5 MG (ZyPREXA) TAB PO SCH ×2 (08:43→19:50)
[2022-10-31] MEDS: PARoxetine 10 MG (PAXIL) TAB PO SCH (08:44)
[2022-10-31] MEDS ORDERED: PARoxetine 20 MG (PAXIL) TAB PO SCH (09:00)
[2022-10-31] MEDS ORDERED: ENOXAPARIN 40 MG/0.4 ML (LOVENOX) SYR SC SCH (09:00)
--- NOTE | 2022-10-31 11:12 | Physical Therapy Daily Note ---
PT Daily Note-Current Subjective Patient more alert and cooperative on this date. Live sitter present. Pain Section J - Health Conditions 1. Rarely or not at all 2. Occasionally 3. Frequently 4. Almost constantly 8. Unable to answer Pain Effect on Sleep: 8 Pain Interference with Therapy: 8 Pain Interference w/Day-to-Day: 8 Mental Status Patient Orientation: Confused Transfers SCALE: Activities may be completed with or without assistive devices. 2-Cjeukhousy-osckdit completes the activity by him/herself with no assistance from a helper. 5-Set-up or Clean-up Assistance-helper sets up or cleans up; patient completes activity. [place] assists only prior to or following the activity. 4-Supervision or Touching Assistance-helper provides verbal cues and/or touching/steadying and/or contact guard assistance as patient completes activity. Assistance may be provided throughout the activity or intermittently. 3-Partial/Moderate Assistance-helper does LESS THAN HALF the effort. [place] lifts, holds or supports trunk or limbs, but provides less than half the effort. 2-Substantial/Maximal Assistance-helper does MORE THAN HALF the effort. [place] lifts or holds trunk or limbs and provides more than half the effort. 1-Eovcwbdpi-yetunn does ALL the effort. Patient does none of the effort to complete the activity. Or, the assistance of 2 or more helpers is required for the patient to complete the activity. If activity was not attempted, code reason: 7-Patient Refused. 9-Not Applicable-not attempted and the patient did not perform the activity before the current illness, exacerbation or injury. 10-Not Attempted due to Environmental Limitations-(lack of equipment, weather restraints, etc.). 88-Not Attempted due to Medical Conditions or Safety Concerns. Lying to Sitting/Side of Bed(Q: 4 Sit to Stand (QC): 4 Chair/Tlx-gk-Azzbc Xfer(QC): 4 Toilet Transfer (QC): 4 Gait Training Distance: 300' Walk 10 feet (QC): 4 Walk 50 ft with 2 Turns(QC): 4 Walk 150 ft (QC): 4 Gait Assistive Device: FWW functional gait sequence/SBA for safety Assessment Much improve on this date. Remain confused but able to tolerated therapy. Patient up in recliner with chair alarm activated and live sitter present. PT Skilled Nursing Goals Skilled Nursing Goals PT Deployment Engineer Goals Time Frame: November 16, 2022 Roll Left & Right (QC): 6 Sit to Lying (QC): 6 Lying-Sitting on Side/Bed(QC): 6 Sit to Stand (QC): 6 Chair/Vrz-sn-Fklsw Xfer(QC): 6 Toilet Transfer (QC): 6 Walk 10 feet (QC): 6 Walk 50ft with 2 Turns (QC): 6 Walk 150 ft (QC): 6 PT Plan Treatment/Plan Treatment Plan: Continue Plan of Care Treatment Plan: Bed Mobility, Education, Functional Activity Usman, Functional Strength, Gait, Safety, Therapeutic Exercise, Transfers Treatment Duration: November 16, 2022 Frequency: 6 times per week Estimated Hrs Per Day: .25 hour per day Patient and/or Family Agrees t: Yes Time Time In: 800 Time Out: 810 DATE: October 31, 2022 Total Billed Treatment Time: 10 Total Billed Treatment 1 visit [facility] 10 min ANAID BOSE PT October 31, 2022 11:12
--- NOTE | 2022-10-31 17:50 | Progress Note ---
Subjective Date Seen by a Provider: October 31, 2022 Time Seen by a Provider: 08:40 Subjective/Events-last exam Fwup acute UTI, hypertensive urgency, confusion/worsening dementia, debility, acute on chronic renal insufficiency. Sitting up in chair. Ambulated with PT. Recognizes me today but still confused as to where she is and why. Objective Exam Vital Signs Date Time Temp Pulse Resp B/P (MAP) Pulse Ox O2 Delivery O2 Flow Rate FiO2 10/31/22 16:05 36.2 62 16 98/49 (65) 96 Room Air 10/31/22 12:44 60 10/31/22 11:31 36.2 67 20 115/56 (75) 99 Room Air 10/31/22 08:00 Room Air 10/31/22 07:16 36.2 89 20 171/79 (109) 90 Room Air 10/31/22 07:00 60 10/31/22 03:25 36.5 60 18 157/72 (100) 95 Room Air 10/31/22 01:00 62 10/31/22 00:03 36.2 62 18 127/56 (79) 95 Room Air 10/30/22 20:30 Room Air 10/30/22 19:59 36.3 70 18 188/98 (128) 96 Room Air 10/30/22 19:00 80 I & O 10/31/22 07:00 Intake Total 2260 ml Output Total 1520 ml Balance 740 ml Capillary Refill : General Appearance: No Apparent Distress Respiratory: Lungs Clear Cardiovascular: Regular Rate, Rhythm Gastrointestinal: normal bowel sounds, non tender, soft Extremity: Non Tender, No Calf Tenderness, No Pedal Edema Neurologic/Psychiatric: Alert, Disoriented Results Lab Laboratory Tests 10/31/22 05:21: Sodium Level 141, Potassium Level 4.2, Chloride Level 111H, Carbon Dioxide Level 18L, Anion Gap 12, Blood Urea Nitrogen 18, Creatinine 1.45H, Estimat Glomerular Filtration Rate 36, BUN/Creatinine Ratio 12, Glucose Level 80, Calcium Level 8.5 Microbiology 10/26/22 Urine Culture - Final, Complete NO GROWTH 10/26/22 Blood Culture - Preliminary, Resulted No growth Assessment/Plan Assessment/Plan Assess & Plan/Chief Complaint 1. Hypertensive Urgency--increased hydralazine to 50mg po TID yesterday 2. Acute on Chronic Renal Insufficiency--continue IVFs and repeat Chem 7 in AM 3. Confusion/Worsening Dementia--has not tolerated aricept due to dizziness, will start memantine, will need DC to SNF 4. Acute Delirium--continue zyprexa at 2.5mg po BID 5. UTI--on YADIEL Nevarez DO October 31, 2022 17:50
[2022-11-01 04:02] VITALS: BP 176/89
[2022-11-01] MEDS: PANTOPRAZOLE 40 MG (PROTONIX) TAB PO SCH (06:19)
[2022-11-01] MEDS: ACETAMINOPHEN 325 MG TABLET PO SCH ×2 (06:19→13:32)
[2022-11-01 07:30] VITALS: BP 168/73
[2022-11-01] MEDS: 1/2 NS W/KCL 20 MEQ/L 1,000 ML IV SCH (08:30)
[2022-11-01] MEDS: OLANZapine 2.5 MG (ZyPREXA) TAB PO SCH (08:42)
[2022-11-01] MEDS: hydrALAZINE (APRESOLINE) 25 MG TAB PO SCH ×2 (08:42→13:32)
[2022-11-01] MEDS: PARoxetine 10 MG (PAXIL) TAB PO SCH (08:43)
[2022-11-01] MEDS: meTOprolol SUCCINATE 100 MG (TOPROL XL) TAB PO SCH (08:43)
[2022-11-01] MEDS: cloNIDine 0.1 MG (CATAPRES) TAB PO SCH (08:43)
[2022-11-01] MEDS: ENOXAPARIN INJECTION 30 MG/0.3 ML SYR SC SCH (08:43)
[2022-11-01] MEDS ORDERED: MEMANTINE 5 MG (NAMENDA) TABLET PO SCH (09:00)
[2022-11-01] MEDS ORDERED: FUROSEMIDE 40 MG/4 ML INJ (LASIX) IVP NR (09:00)
[2022-11-01] MEDS ORDERED: KCL 20 MEQ TAB (K-DUR) PO NR (09:00)
--- NOTE | 2022-11-01 11:18 | Physical Therapy Daily Note ---
PT Daily Note-Current Subjective Patient agrees to PT. Pain Section J - Health Conditions 1. Rarely or not at all 2. Occasionally 3. Frequently 4. Almost constantly 8. Unable to answer Pain Effect on Sleep: 8 Pain Interference with Therapy: 8 Pain Interference w/Day-to-Day: 8 Mental Status Patient Orientation: Confused Transfers SCALE: Activities may be completed with or without assistive devices. 4-Yruumrhptn-flpujji completes the activity by him/herself with no assistance from a helper. 5-Set-up or Clean-up Assistance-helper sets up or cleans up; patient completes activity. [place] assists only prior to or following the activity. 4-Supervision or Touching Assistance-helper provides verbal cues and/or touching/steadying and/or contact guard assistance as patient completes activity. Assistance may be provided throughout the activity or intermittently. 3-Partial/Moderate Assistance-helper does LESS THAN HALF the effort. [place] lifts, holds or supports trunk or limbs, but provides less than half the effort. 2-Substantial/Maximal Assistance-helper does MORE THAN HALF the effort. [place] lifts or holds trunk or limbs and provides more than half the effort. 4-Ljtvenrbq-uelwoc does ALL the effort. Patient does none of the effort to complete the activity. Or, the assistance of 2 or more helpers is required for the patient to complete the activity. If activity was not attempted, code reason: 7-Patient Refused. 9-Not Applicable-not attempted and the patient did not perform the activity before the current illness, exacerbation or injury. 10-Not Attempted due to Environmental Limitations-(lack of equipment, weather restraints, etc.). 88-Not Attempted due to Medical Conditions or Safety Concerns. Sit to Stand (QC): 4 Gait Training Distance: 250' Walk 10 feet (QC): 4 Walk 50 ft with 2 Turns(QC): 4 Walk 150 ft (QC): 4 Gait Assistive Device: FWW steady, functional gait sequence Assessment Patient tolerated treatment well and remains up in recliner with chair alarm activated and live sitter present. PT Group Home Goals Basket Grader Goals PT Basket Grader Goals Time Frame: November 16, 2022 Roll Left & Right (QC): 6 Sit to Lying (QC): 6 Lying-Sitting on Side/Bed(QC): 6 Sit to Stand (QC): 6 Chair/Dqj-ep-Rfddd Xfer(QC): 6 Toilet Transfer (QC): 6 Walk 10 feet (QC): 6 Walk 50ft with 2 Turns (QC): 6 Walk 150 ft (QC): 6 PT Plan Treatment/Plan Treatment Plan: Continue Plan of Care Treatment Plan: Bed Mobility, Education, Functional Activity [place]man, Functional Strength, Gait, Safety, Therapeutic Exercise, Transfers Treatment Duration: November 16, 2022 Frequency: 6 times per week Estimated Hrs Per Day: .25 hour per day Patient and/or Family Agrees t: Yes Time Time In: 915 Time Out: 926 DATE: November 01, 2022 Total Billed Treatment Time: 11 Total Billed Treatment 1 visit FA 11 min ANAID BOSE PT November 01, 2022 11:18
--- NOTE | 2022-11-01 11:47 | Diagnostic Imaging Report ---
INDICATION: Crackles. Increased lung sounds. COMPARISON: 10/26/2022 FINDINGS: Frontal and lateral views of the chest demonstrate normal heart size and pulmonary vascularity. The lungs are clear. There are no signs of infiltrate, pleural effusions or pneumothoraces. The visualized osseous structures show no acute abnormalities. Left-sided dual-lead pacemaker is noted IMPRESSION: 1. No acute process. No signs of infiltrates, effusions or pneumothoraces. Dictated by: Dictated on workstation # [id number]
[2022-11-01 12:17] VITALS: BP 126/58
[2022-11-01] MEDS ORDERED: OLAN2.5T27 PO (13:52)
[2022-11-01] MEDS ORDERED: MEMA5TAB PO (13:52)
[2022-11-01] MEDS ORDERED: HYDR-3923 PO (13:52)
[2022-11-01] MEDS ORDERED: ACET325T49 PO (13:52)
[2022-11-01] MEDS ORDERED: PARO10TA3 PO (13:52)
--- NOTE | 2022-11-01 13:54 | Discharge Inst-Skilled Nursing ---
Discharge Inst-Skilled NF Reconcile Patient Problems Problems Reviewed?: Yes Patient Instructions Patient Problems: Labile Hypertension Dementia with Delirium UTI Chronic Renal Insufficiency Consult/Follow Up/Orders Follow Up Appt.: 2 weeks Skilled NF Admit to: [facility] Certification (SNF) I certify that SNF services are required to be given on an inpatient basis because of the above named patient's need for [facility] care on a continuing basis for the conditions(s) for which he/she was receiving inpatient hospital services prior to his/her transfer to the SNF. Senior Living Facility Order: [employer]-Evaluate & Treat, Physical Therapy-Evaluate & Treat, Speech Language-Evaluate & Treat Oxygen Delivery Method: Room Air Discharge Diet: Cardiac Diet Daily Activity as Tolerated: Yes Resuscitation Status: Do Not Resuscitate New & Resume Previous Orders Ambika Hernandez November 01, 2022 13:53 AMBIKA HERNANDEZ DO November 01, 2022 13:54
--- NOTE | 2022-11-01 14:23 | Discharge Summary ---
Diagnosis/Chief Complaint Date of Admission Oct 27, 2022 at 08:05 Date of Discharge Discharge Date: November 01, 2022 Discharge Diagnosis 1. Hypertensive Urgency in patient with Labile Hypertension--improved 2. Acute on Chronic Renal Insufficiency--back to baseline 3. Confusion/Worsening Dementia--started memantine, will need DC to SNF 4. Acute Delirium--continue zyprexa at 2.5mg po BID 5. UTI--on rocephin but urine culture negative so will DC abx Discharge Summary Hospital Course Was the Problem List Reviewed?: Yes Hospital Course This is an 82 year old female with known dementia and labile hypertension who was brought to the emergency room due to being confused. Her sister had checked on her and found that she was very confused and there was concern that she had not been taking her medications correctly. She was found to be in hypertensive urgency with UTI and renal insufficiency. She was given IV hydralazine and then admitted to the medical floor with metoprolol, amldopine, clonidine and oral hydralazine. Her UTI was treated with IV rocephin. She had delirium during her hospital stay requiring a sitter and doses of xanax, IV lorazepam and zyprexa was started. By the day of discharge she is improving and recognizes me and is cooperative and pleasant and laughing. The amlodopine was discontinued due to a history of having edema with amlodopine even at low doses and her hydralazine dose was increased. Her blood pressure is much improved and more stable at discharge getting down to the 120s/60s. Her urine culture is negative so the rocephin will be discontinued. Her BUN and Cr are back to her baseline after IVFs. She has been up ambulating with PT and her appetite is improved. She will be discharged to [facility] and I will see her in my office in 2 weeks. Labs Laboratory Tests 10/30/22 05:43: Chloride Level 110H, Carbon Dioxide Level 20L, Blood Urea Nitrogen 20H, Creatinine 1.33H 10/31/22 05:21: Chloride Level 111H, Carbon Dioxide Level 18L, Creatinine 1.45H Procedures None. Discharge Physical Examination Allergies: Coded Allergies: Milk Containing Products (Unverified Allergy, Unknown, 04/19/13) FROM UNCODED LIST codeine (Verified Allergy, Unknown, 10/11/20) erythromycin base (Unverified Allergy, Unknown, 08/29/06) metaxalone (Verified Allergy, Unknown, 10/11/20) Vitals & I&Os Vital Signs Date Time Temp Pulse Resp B/P (MAP) Pulse Ox O2 Delivery O2 Flow Rate FiO2 11/01/22 14:15 11/01/22 12:17 36.3 61 18 96 Room Air General Appearance: Alert, Oriented X3 Respiratory: Other (crackles in bases this morning) Cardiovascular: Regular Rate Abdominal: Normal Bowel Sounds, Soft, No Tenderness Extremities: No Clubbing, No Cyanosis, No Edema Psych/Mental Status: Other (more awake/alert--recognizes me) Discharge Home Medications Reviewed and agree with Discharge Medication list on patient's Discharge Instruction sheet Instructions to Patient/Family Please see electronic discharge instructions given to patient. YADIEL ARAUJO DO November 01, 2022 14:23
== END 2022-11-02 10:03 | DRG 690 ==
LOC: EDUNIT# 16:06 → ER 16:09 → 4TH 22:11 → OBSVTOIN 10-27 08:05 → 4TH 11-01 14:13 → UNDODISIN 11-01 14:18
PROVIDERS: ADMIT Family Medicine; ATTEND Family Medicine
DX: N39.0 Urinary tract infection, site not specified (principal); I16.0 Hypertensive urgency; F03.90 Unspecified dementia, unspecified severity, without behavioral disturbance, psychotic disturbance, mood disturbance, and anxiety; R41.0 Disorientation, unspecified; Z79.899 Other long term (current) drug therapy; N18.30 Chronic kidney disease, stage 3 unspecified; Z95.0 Presence of cardiac pacemaker; E78.00 Pure hypercholesterolemia, unspecified; Z86.73 Personal history of transient ischemic attack (TIA), and cerebral infarction without residual deficits; K21.9 Gastro-esophageal reflux disease without esophagitis; K57.90 Diverticulosis of intestine, part unspecified, without perforation or abscess without bleeding; M19.90 Unspecified osteoarthritis, unspecified site; F41.9 Anxiety disorder, unspecified; F32.A Depression, unspecified; Z91.148 Patient's other noncompliance with medication regimen for other reason; Z60.2 Problems related to living alone; Z87.891 Personal history of nicotine dependence; E87.6 Hypokalemia; I12.9 Hypertensive chronic kidney disease with stage 1 through stage 4 chronic kidney disease, or unspecified chronic kidney disease; R53.81 Other malaise
CPT/HCPCS: 36415; 70450; 71045; 71046; 80048; 80053; 81000; 83605; 83735; 83880; 84443; 85025; 85027; 85610; 85730; 86141; 87040; 87088; 93005; 93041; 96361; 96374; 96375; 96376

== ENCOUNTER 2023-02-04 13:28 | Outpatient (RCR) | payer MEDICARE, OTHER ==
[~2023-02-04 13:28] MED LIST changes: +CIPR500T5 PO; +HYDR-3923 PO; +MEMA5TAB PO; +OLAN2.5T27 PO; +PARO20TA5 PO; +POLY17PO6 PO; +POTA-330 PO; -POTA-51 PO
== END 2023-02-07 17:00 | disposition home or self-care (01) ==
PROVIDERS: ATTEND Family Medicine
DX: F03.90 Unspecified dementia, unspecified severity, without behavioral disturbance, psychotic disturbance, mood disturbance, and anxiety (principal); R53.1 Weakness

== ENCOUNTER → 2023-04-28 | Outpatient (CLI) | payer MEDICARE, OTHER ==
[~2023-04-28] VITALS: Ht 170.2 cm; Wt 68.0 kg
[~2023-04-28] MED LIST changes: +FAMO-356 PO; -FAMO20TA3 PO; -MECL-149 PO; +MECL-291 PO
== END | disposition home or self-care (01) ==
LOC: PREOP 08:00
PROVIDERS: ATTEND Specialist
DX: Z01.818 Encounter for other preprocedural examination (principal)

== ENCOUNTER 2023-05-02 09:54 | Day surgery (SDC) | payer MEDICARE, OTHER ==
[~2023-05-02] VITALS: Ht 170.2 cm; Wt 68.0 kg
[2023-05-02 10:00] VITALS: BP 154/88
[2023-05-02] MEDS: TETRACAINE 0.5% OPHTH SOLN 4 ML BTL (SINGLE DOSE ONLY) OU PRN ×3 (11:09→11:17)
[2023-05-02] MEDS: PHENYLEPHRINE 10% OPHTH SOLN 5 ML BTL OU PRN ×2 (11:12→11:17)
[2023-05-02] MEDS: TROPICAMIDE 1% OPH SOLN (MYDRIACYL) 15 ML BTL OU PRN ×2 (11:12→11:17)
--- NOTE | 2023-05-02 11:49 | Ophthalmologist Pre-Op Note ---
Pre-Operative Progress Note H&P Reviewed The H&P was reviewed, patient examined and no changes noted. Date H&P Reviewed: May 02, 2023 Time H&P Reviewed: 11:28 Pre-Op Dx Secondary Cataract, Right Eye ROBERTO PUENTE MD May 02, 2023 11:49
--- NOTE | 2023-05-02 11:49 | Ophthalmology Operative Report ---
YAG Capsulotomy PREOPERATIVE DIAGNOSIS: Secondary Cataract Left Eye POSTOPERATIVE DIAGNOSIS: Secondary Cataract Left Eye PROCEDURE: YAG Capsulotomy, left eye SURGEON: Luis Puente ANESTHESIA: Topical anesthesia COMPLICATIONS: None ESTIMATED BLOOD LOSS: Minimal DESCRIPTION OF PROCEDURE: After proper informed consent was obtained, the patient's, a 82 female left eye received one drop of Tropicamide and one drop of Tetracaine. The patient was then placed at the YAG laser and using a power of [ 4.2] millijoules and [ 16] bursts were used to fashion a central capsulotomy. The patient tolerated the procedure well without complications. LUIS PUENTE MD May 02, 2023 11:49
== END 2023-05-02 11:20 | disposition home or self-care (01) ==
LOC: SDC 09:54
PROVIDERS: ATTEND Specialist
DX: H26.40 Unspecified secondary cataract (principal)